=== PATIENT | male | born 1965 | race Caucasian/White ===

== ENCOUNTER 2023-04-13 08:20 | Outpatient (OUT) | payer BC, SELFPAY ==
--- NOTE | 2023-04-13 08:24 | XR_ITS ---
The [address] [address] Patient Name: JANICE YING MRN: [id number] date: 1965 Sex: M Assigned Patient Location: [facility] Current Patient Location: [facility] Accession/Order Number: [id number] Exam Date: 04/13/2023 09:05 Report Date: 04/13/2023 09:40 At the request of: BILLY COPE Procedure: XR chest 2V EXAM: XR chest 2V HISTORY: Preop exam COMPARISON: None. TECHNIQUE: PA and lateral views of the chest. FINDINGS: The cardiomediastinal silhouette is normal. No focal consolidation is identified. There is no pneumothorax. No pleural effusion is noted. The osseous structures are intact. XR/XR chest 2V IMPRESSION: No acute cardiopulmonary process. Electronically authenticated by: YRN UNDERWOOD Date: 04/13/2023 09:40
--- NOTE | 2023-04-13 08:24 | ECG_ITS ---
The [facility] Test Date: 2023-04-13 Pat Name: JANICE YING Department: Room: - Gender: Male [employer]: : 1965 Requested By: BILLY COPE Order Number: [id number] Reading MD: WILMA DEMPSEY Measurements Intervals [place] Rate: 69 P: 54 AL: 188 QRS: -54 QRSD: 145 T: -4 QT: 406 QTc: 436 Interpretive Statements SINUS RHYTHM INTRAVENTRICULAR CONDUCTION DELAY [130+ ms QRS DURATION] No previous ECG available for comparison Electronically Signed On 04-14-2023 7:01:57 EST by WILMA DEMPSEY
[2023-04-13 09:14] LABS: Basophils Percent Auto 0.4 % (0.2-2.0); Hematocrit 40.5 % (42.0-54.0); Hemoglobin 13.7 g/dL (14.0-18.0); Immature Granulocytes Abs Auto 0.03 10^3/uL (0.00-0.03); Immature Granulocytes Pct Auto 0.4 % (0.0-0.5); Lymphocytes Absolute Auto 1.4 10^3/uL (1.2-3.8); Lymphocytes Percent Auto 17.2 % (20.5-60.0); Mean Corpuscular HGB Conc 33.8 g/dL (29.9-35.2); Mean Corpuscular Volume 82.7 fL (80.0-94.0); Mean Platelet Volume 9.8 fL (9.5-13.5); Monocytes Absolute Auto 0.5 10^3/uL (0.3-0.8); Monocytes Percent Auto 5.7 % (1.7-12.0); Neutrophils Absolute Auto 6.4 10^3/uL (1.4-6.5); Neutrophils Percent Auto 76.3 % (43.0-75.0); Platelet Count 301 10^3/uL (150-450); Red Cell Distribution Width 11.9 % (11.0-15.0); White Blood Count 8.4 10^3/uL (4.0-11.0)
[2023-04-13 09:19] LABS: Anion Gap 13.4; BUN Creatinine Ratio 20.4; Calcium 9.7 mg/dL (8.5-10.1); Carbon Dioxide 30.5 mmol/L (21.0-32.0); Chloride 97 mmol/L (98-107); Estimated GFR (African America >60 (>=60); Estimated GFR (Non-African Ame >60 (>=60); Glucose 306 mg/dL (74-106); Potassium 4.9 mmol/L (3.5-5.1); Sodium 136 mmol/L (136-145)
[2023-04-13 09:24] LABS: INR 0.99; Partial Thromboplastin Time 24.8 sec (22.3-36.2); Prothrombin Time 10.5 sec (9.0-11.6)
== END 2023-04-13 08:21 | disposition home or self-care (01) ==
LOC: PST 08:21
PROVIDERS: PCP Urology; Visit Provider Urology
DX: Z01.810 Encounter for preprocedural cardiovascular examination (principal); Z01.812 Encounter for preprocedural laboratory examination; N20.0 Calculus of kidney; F41.9 Anxiety disorder, unspecified; E78.5 Hyperlipidemia, unspecified
CPT/HCPCS: 36415; 71046; 80048; 85025; 85610; 85730; 93005

== ENCOUNTER 2023-04-27 08:17 | Day surgery (SDC) | payer BC, SELFPAY ==
[2023-04-13 08:54] VITALS: BP 158/90; PULSE 70; RESP 18; TEMP 36.3; O2SAT 99; BMI 26.3
[2023-04-27] VITALS (14 sets, daily range): BP systolic 130–182; BP diastolic 70–104; PULSE 62–85; RESP 12–18; TEMP 36.1–36.3; O2SAT 96–99; BMI 26.3
--- NOTE | 2023-04-27 08:29 | XR_ITS ---
The [address] [address] Patient Name: JANICE YING MRN: [id number] date: 1965 Sex: M Assigned Patient Location: [facility] Current Patient Location: [facility] Accession/Order Number: [id number] Exam Date: 04/27/2023 08:25 Report Date: 04/27/2023 09:58 At the request of: BILLY COPE Procedure: XR abdomen 1V EXAM: XR abdomen 1V HISTORY: KIDNEY STONES COMPARISON: None. TECHNIQUE: AP view of the abdomen. FINDINGS: Nonobstructive bowel gas pattern is noted. There is a 4 mm calculus in the left and in the right kidney. The osseous structures are intact. XR/XR abdomen 1V IMPRESSION: Nonobstructive bowel gas pattern. Bilateral nephrolithiasis. Electronically authenticated by: YRN UNDERWOOD Date: 04/27/2023 09:58
[2023-04-27 08:56] LABS: Glucometer 205 mg/dL (74-106)
[2023-04-27] MEDS: LACTATED RINGER'S SOLUTION 1,000 ML 50 ML IV ×3 (08:57→12:36)
[2023-04-27] MEDS: CEFAZOLIN SODIUM/DEXTROSE,ISO 1 GM/50 ML IV.SOLN IV (10:03)
--- NOTE | 2023-04-27 11:15 | P.URON_ITS ---
Urology Surgery Operative Note Operative Note Procedure Date: 04/27/23 Time Out Performed: yes Pre-op Diagnosis: bilateral nephrolithiasis Post-op Diagnosis: same as pre-op Procedures performed: . #1. Right ESWL. Anesthesia: General-LMA Primary Surgeon: Sean Cutler Complications: none Estimated blood loss (mL): 0 Findings: 2, 5-6 mm stones right upper pole Specimens: . None Indications for Procedures: this gentleman has bilateral nephrolithiasis. On the right side. He has 2 stones in the lower pole, each of which is 5-6 mm. These are nonobstructing. On the left side. He has a stone that is 4-5 mm. He now presents for right ESWL. He has signed an informed consent for this procedure after all risks were explained. [place] of these include bleeding, perinephric hematoma, infection and anesthesia to name a few. Detailed description of Procedure: The patient was brought to the Operating Room and placed on Siemens electromagnetic lithotripsy treatment table in the supine position. SCDs were placed on their lower extremities and turned on and functioning during the entire case. Timeout was done by all parties in the room. We all agreed upon the patient's identification and the planned procedures for this patient. General Anesthesia was then administered via LMA. Treatment head was then brought to the patient's correct side. While using flourscopy the higher of the 2 stones was identified and lined up into the crosshairs. we beegan applying shocks at power level II.0 and increased to a maximum power level III.5. Intermittent fluoroscopy revealed that not only was the stone in the crosshairs starting to fragment but also the stone adjacent to it was. We applied a total of 3000 shocks. Both stones appeared to fragment satisfactorily. The procedure was terminated. He was then transferred to a [facility] bed and wheeled to PACU in stable condition.
--- NOTE | 2023-04-27 11:47 | PC.NURSE ---
C/O TAILBONE,SCIATIC PAIN THAT HE HAS BEEN DEALING WITH AT HOME; TRYING TO REPOSITION
--- NOTE | 2023-04-27 12:02 | PC.NURSE ---
Assited to chair and hot pack applied to sacral area
[2023-04-27] MEDS: KETOROLAC TROMETHAMINE 30 MG/ML VIAL IVP (12:34)
[2023-04-27] MEDS: MORPHINE SULFATE 4 MG/ML VIAL IV (12:54)
--- NOTE | 2023-04-27 12:59 | PC.NURSE ---
Patient medicated per Dr. Cutler orders with morphine at this time. Patient alert and oriented x4. Pain in right flank area. No relief from toradol noted at this time.
[2023-04-27] MEDS: MEPERIDINE HCL/PF 25 MG/ML VIAL 75 MG IM (13:45)
== END 2023-04-27 15:22 | disposition home or self-care (01) ==
PROVIDERS: PCP Urology; Visit Provider Urology
PROC: (CPT 873; principal; 2023-04-27 09:40)
DX: N20.0 Calculus of kidney (principal); F41.9 Anxiety disorder, unspecified; E78.5 Hyperlipidemia, unspecified; I10 Essential (primary) hypertension; E11.9 Type 2 diabetes mellitus without complications; Z79.01 Long term (current) use of anticoagulants; I25.10 Atherosclerotic heart disease of native coronary artery without angina pectoris; I25.2 Old myocardial infarction; L40.50 Arthropathic psoriasis, unspecified; Z79.84 Long term (current) use of oral hypoglycemic drugs; Z87.891 Personal history of nicotine dependence; Z79.82 Long term (current) use of aspirin; Z85.820 Personal history of malignant melanoma of skin; N40.1 Benign prostatic hyperplasia with lower urinary tract symptoms; Z95.5 Presence of coronary angioplasty implant and graft
CPT/HCPCS: 50590; 36415; 74018; 82948

== ENCOUNTER 2023-05-04 08:15 | Outpatient (OUT) | payer BC, SELFPAY ==
[2023-05-04 08:31] LABS: Basophils Percent Auto 0.3 % (0.2-2.0); Eosinophils Absolute Auto 0.1 10^3/uL (0.0-0.7); Eosinophils Percent Auto 1.6 % (0.9-7.0); Hematocrit 31.2 % (42.0-54.0); Hemoglobin 10.2 g/dL (14.0-18.0); Immature Granulocytes Abs Auto 0.01 10^3/uL (0.00-0.03); Immature Granulocytes Pct Auto 0.1 % (0.0-0.5); Lymphocytes Percent Auto 22.1 % (20.5-60.0); Mean Corpuscular HGB Conc 32.7 g/dL (29.9-35.2); Mean Corpuscular Hemoglobin 27.8 pg (25.9-34.0); Mean Platelet Volume 9.4 fL (9.5-13.5); Monocytes Absolute Auto 0.9 10^3/uL (0.3-0.8); Monocytes Percent Auto 10.2 % (1.7-12.0); Neutrophils Absolute Auto 5.8 10^3/uL (1.4-6.5); Neutrophils Percent Auto 65.7 % (43.0-75.0); Platelet Count 365 10^3/uL (150-450); Red Blood Count 3.67 10^6/uL (4.70-6.10); Red Cell Distribution Width 12.7 % (11.0-15.0); White Blood Count 8.8 10^3/uL (4.0-11.0)
== END 2023-05-04 08:16 | disposition home or self-care (01) ==
LOC: LAB 08:15
PROVIDERS: PCP Urology; Visit Provider Urology
DX: S37.019A Minor contusion of unspecified kidney, initial encounter (principal)
CPT/HCPCS: 36415; 85025

== ENCOUNTER 2023-05-17 10:14 | Outpatient (OUT) | payer BC, SELFPAY ==
[2023-05-12 09:59] LABS: Basophils Percent Auto 0.4 % (0.2-2.0); Eosinophils Absolute Auto 0.1 10^3/uL (0.0-0.7); Eosinophils Percent Auto 0.9 % (0.9-7.0); Hematocrit 31.4 % (42.0-54.0); Hemoglobin 10.2 g/dL (14.0-18.0); Immature Granulocytes Abs Auto 0.03 10^3/uL (0.00-0.03); Immature Granulocytes Pct Auto 0.4 % (0.0-0.5); Lymphocytes Absolute Auto 2.1 10^3/uL (1.2-3.8); Lymphocytes Percent Auto 29.4 % (20.5-60.0); Mean Corpuscular HGB Conc 32.5 g/dL (29.9-35.2); Mean Corpuscular Hemoglobin 27.6 pg (25.9-34.0); Mean Corpuscular Volume 85.1 fL (80.0-94.0); Mean Platelet Volume 8.7 fL (9.5-13.5); Monocytes Absolute Auto 0.7 10^3/uL (0.3-0.8); Monocytes Percent Auto 9.8 % (1.7-12.0); Neutrophils Absolute Auto 4.1 10^3/uL (1.4-6.5); Neutrophils Percent Auto 59.1 % (43.0-75.0); Platelet Count 523 10^3/uL (150-450); Red Blood Count 3.69 10^6/uL (4.70-6.10); Red Cell Distribution Width 12.1 % (11.0-15.0)
--- OUTSIDE RECORDS SUMMARY | 2023-05-17 10:24 | XMS_ITS | CCD ---
Author Name Unknown Address [address] [place] [address] Organization [facility] Care Team Providers Care Order Analyst Name Role Phone BEDOCS, DR RANJEET Kuhn Attending Unavailable BEDOCS, DR RANJEET Kuhn Consulting Unavailable BEDOCS, DR RANJEET Kuhn Admitting Unavailable MISC, DR OLIVER Primary Care Unavailable ANTONIO KITCHEN Primary Care Physician Unavail able POCOS, YANN Grant Referring Unavailable DEION HAMLIN Attending Unavailable POCOS, YANN Grant Attending Unavailable POCOS, YANN Grant Referring Unavailable DEION HAMLIN Attending Unavailable MATHEUS MCKINNON Attending Unavailable POCOS, YANN Grant Referring Unavailable MATHEUS MCKINNON Attending Unavailable POCOS, YANN Grant Referring Unavailable Pocos, Yann Grant Admitting Unavailable Pocos, Yann Grant Attending Unavailable Edward Castillo Attending Unavailable Danica Antonio Admitting Unavailable COPESean Consulting Unavailable MD Sean COPE Consulting Unavailable COPE, Sean R Consulting Unavailable COPE, Sean R Consulting Unavailable COPE, Sean R Consulting Unavailable COPE, Sean R Consulting Unavailable COPE, Sean R Consulting Unavailable COPE, Sean R Consulting Unavailable COPE, Sean R Consulting Unavailable COPE, Sean R Consulting Unavailable COPE, Sean R Consulting Unavailable COPE, Sean R Consulting Unavailable COPE, Sean R Consulting Unavailable COPE, Sean R Consulting Unavailable Pocos, Yann Grant Referring Unavailable Pocos, Yann Grant Attending Unavailable Pocmaribell, Yann Grant Admitting Unavailable Matthew Dela Cruz Attending Unavaila ble Matthew Dela Cruz Admitting Unavaila ble NONE, XXXX Referring Unavailable Estephania VILLANUEVA Attending Unavailable Estephania VILLANUEVA Admitting Unavailable NONE, XXXX Referring Unavailable Sean COPE Attending Unavailable PRISCA, Sean Stovall Attending Unavailable COPE, Sean Stovall Attending Unavailable ANTONIO KITCHEN Referring Unavailable Sean COPE Attending Unavailable Pocos, Yann Grant Referring Yann Aldana Attending Yann Aldana Admitting Matthew Johnson Referring Matthew Melo Attending Matthew Melo Consulting Matthew Melo Admitting Matthew Melo Consulting Matthew Melo Consulting Denise forde Allergies Allergy Classification Reported Allergen(s) Allergy Type Date of Onset Reaction(s) Facility (2 sources) HYDROcodone; Translations: [HYDROcodone] Drug Allergy [facility] Repository (7 sources) HYDROcodone; Translations: [hydrocodone] Drug Allergy Itching [facility] Medications Current Medications Medication Drug Class(es) Dates Sig (Normalized) Sig (Original) acetaminophen 325 mg / HYDROcodone bitartrate 5 mg oral tablet (1 source) Opioid Agonist Start: 02-09-2023 [place] 325 mg-5 mg oral tablet See Instructions, for pain, 40 tab(s), Refill(s) 0, 1 - 2 po q4-6h prn pain Dx: M17.11, Z96.651 Duration: 7 days, [id number], 188, cm, 01/16/23 7:42:00 EDT, Height/Length Dosing, 97, kg, 01/16/23 7:42:00 EDT, Weight Dosing Start Date: 02/09/23 Status: Ordered acetaminophen 325 mg / oxyCODONE hydrochloride 7.5 mg oral tablet (2 sources) Opioid Agonist Start: 04-30-2023 Percocet 7.5/325 oral tablet 2 tab(s), Oral, q6hr for pain, 20 tab(s), Refill(s) 0, [facility]/pharmacy #[id number], 185, cm, 04/28/23 20:47:00 EST, Height/Length Dosing, 77.2, kg, 04/29/23 10:14:00 EST, Weight Dosing Start Date: 04/30/23 Status: Ordered amLODIPine 5 mg oral tablet (2 sources) Dihydropyridine Calcium Channel Castro Start: 05-01-2023 take 1 tablet by mouth twice daily amLODIPine 5 mg Tab 5 mg = 1 tab(s), Oral, BID, # 60 tab(s), Refills(s) 0, Pharmacy: [facility]/pharmacy #[id number], 185, cm, 04/28/23 20:47:00 EST, Height/Length Dosing, 77.2, kg, 04/29/23 10:14:00 EST, Weight Dosing Start Date: 05/01/23 Status: Ordered ascorbic acid 1000 mg oral tablet (3 sources) Vitamin C Start: 10-13-2020 take 1000 mg by mouth once daily Vitamin C 1,000 mg, Oral, Daily, Refills(s) 0 Start Date: 10/13/20 Status: Ordered aspirin 81 mg delayed release oral tablet (6 sources) Platelet Aggregation Inhibitor, Nonsteroidal Anti-inflammatory Drug Start: 12-16-2022 take 1 tablet by mouth once daily aspirin 81 mg Oral EC Tab 81 mg = 1 tab(s), Oral, Daily, # 90 tab(s), Refills(s) 3, Pharmacy: [facility], 186, cm, 11/24/21 14:21:00 EDT, Height/Length Dosing, 98, kg, 11/24/21 14:21:00 EDT, Weight Dosing Start Date: 12/16/22 Status: Ordered Start: 01-26-2021 take 1 tablet by allen th once daily Aspirin 81 mg Tab-Chew 81 mg = 1 tab(s), Oral, Daily, # 90 tab(s), Refills(s) 3, Pharmacy: [facility]/pharmacy #[id number], 186, cm, 10/20/20 11:38:00 EDT, Height/Length Dosing, 96, kg, 10/20/20 11:38:00 EDT, Weight Dosing Start Date: 01/26/21 Status: Ordered atorvastatin 80 mg oral tablet (9 sources) HMG-CoA Reductase Inhibitor Start: 09-07-2021 take 1 tablet by mouth once daily atorvastatin 80 mg Tab 80 mg = 1 tab(s), Oral, Daily, # 90 tab(s), Refills(s) 3, Pharmacy: [facility], 186, cm, 10/20/20 11:38:00 EDT, Height/Length Dosing, 96, kg, 10/20/20 11:38:00 EDT, Weight Dosing Start Date: 09/07/21 Status: Ordered Fish Oils (9 sources) Start: 12-26-2019 take 500 mg by mouth once daily Fish Oil 500 mg, Oral, Daily, Refill(s) 0, Prophylaxis Start Date: 12/26/19 Status: Ordered Start: 12-26-2019 Fish Oil Oral, Refill(s) 0 Start Date: 12/26/19 Status: Ordered 1 ml ixekizumab 80 mg/ml auto-injector (3 sources) Interleukin-17A Antagonist Start: 11-24-2021 LORazepam 0.5 mg oral tablet (3 sources) Benzodiazepine Start: 02-24-2020 take 1 tablet by mouth three times daily as needed for anxiety Ativan 0.5 mg Tab 0.5 mg = 1 tab(s), Oral, TID, PRN Anxiety, # 15 tab(s), Refills(s) 0, Pharmacy: [facility]/pharmacy #[id number], 185.4, cm, 02/21/20 20:48:00 EDT, Height/Length Dosing, 93.7, kg, 02/21/20 20:48:00 EDT, Weight Dosing Start Date: 02/24/20 Status: Ordered losartan potassium 100 mg oral tablet (7 sources) Angiotensin 2 Receptor Castro Start: 03-22-2023 take 1 tablet by mouth once daily losartan 100 mg Tab 100 mg = 1 tab(s), Oral, Daily, # 90 tab(s), Refills(s) 2, Pharmacy: [facility]/pharmacy #[id number], 188, cm, 01/16/23 7:42:00 EDT, Height/Length Dosing, 97, kg, 01/16/23 7:42:00 EDT, Weight Dosing Start Date: 03/22/23 Status: Ordered Start: 01-16-2023 take 1 tablet by mouth once da joan losartan 100 mg Tab 100 mg = 1 tab(s), Oral, Daily, High blood pressure Start Date: 01/16/23 Status: Ordered Start: 09-29-2021 take 1 tablet by mouth once da joan losartan 100 mg Tab 100 mg = 1 tab(s), Oral, Daily, # 90 tab(s), Refills(s) 0, Pharmacy: [facility], 186, cm, 10/20/20 11:38:00 EDT, Height/Length Dosing, 96, kg, 10/20/20 11:38:00 EDT, Weight Dosing Start Date: 09/29/21 Status: Ordered lysine 500 mg oral tablet (3 sources) Start: 02-21-2020 take 1 tablet by mouth once daily lysine 500 mg oral tablet 500 mg = 1 tab(s), Oral, Daily, Refills(s) 0 Start Date: 02/21/20 Status: Ordered meloxicam 15 mg oral tablet (3 sources) Nonsteroidal Anti-inflammatory Drug Start: 01-16-2023 take 1 tablet by mouth once daily meloxicam 15 mg Tab 15 mg = 1 tab(s), Oral, Daily, Inflammation Start Date: 01/16/23 Status: Ordered metFORMIN hydrochloride 500 mg oral tablet (12 sources) Biguanide Start: 03-27-2023 metformin 500 mg Tab Refills(s) 0 Start Date: 03/27/23 Status: Ordered Start: 12-26-2019 take 1 tablet by allen th twice daily metformin 500 mg Tab 500 mg = 1 tab(s), Oral, BID, Refills(s) 0, Blood glucose Start Date: 12/26/19 Status: Ordered Multivitamins and Minerals (9 sources) Start: 12-26-2019 take 1 tablet by mouth once daily Multivitamins and Minerals 1 tab, Oral, Daily, Refill(s) 0, Prophylaxis Start Date: 12/26/19 Status: Ordered Start: 12-26-2019 Multivitamins and Minerals Refill(s) 0 Start Date: 12/26/19 Status: Ordered nitroglycerin 0.4 mg sublingual tablet (7 sources) Nitrate Vasodilator Start: 02-24-2020 nitroglyce rin 0.4 mg sublingual Tab 0.4 mg = 1 tab(s), SubLingual, q5min, PRN Chest pain, not to exceed 3 doses/15 min--if pain persists, seek medical attention, # 30 tab(s), Refills(s) 0, Pharmacy: [facility]/pharmacy #[id number], 185.4, cm, 02/21/20 20:48:00 EDT, Height/Length Dosing, 93.7, kg, 02/21/20 20:48:00 EDT, Weight Dosing Start Date: 02/24/20 Status: Ordered Non-Formulary Medication (6 sources) Start: 10-13-2020 Non-Formulary Medication Start Date: 10/13/20 Status: Ordered Start: 10-13-2020 Non-Formulary Medication Start Date: 10/13/20 Status: Ordered pantoprazole 40 mg delayed release oral tablet (3 sources) Proton Pump Inhibitor Start: 03-10-2020 take 1 tablet by mouth once daily Protonix 40 mg Tab-DR 40 mg = 1 tab(s), Oral, Daily, # 30 tab(s), Refills(s) 0, Pharmacy: [facility]/pharmacy #[id number], 186, cm, 03/10/20 10:58:00 EDT, Height/Length Dosing, 93, kg, 03/10/20 10:58:00 EDT, Weight Dosing Start Date: 03/10/20 Status: Ordered PARoxetine hydrochloride 10 mg oral tablet (9 sources) Serotonin Reuptake Inhibitor Start: 10-13-2020 take 1 tablet by mouth once daily paroxetine 10 mg Tab 10 mg = 1 tab(s), Oral, Daily, Refills(s) 0, Depression Start Date: 10/13/20 Status: Ordered Taltz Autoinjector (9 sources) Start: 09-10-2020 Taltz Autoinje ctor 80 mg, SubCutaneous, q4wk, Refills(s) 0, Other (see comment) Start Date: 09/10/20 Status: Ordered Start: 09-10-2020 Taltz Autoinje ctor Refills(s) 0 Start Date: 09/10/20 Status: Ordered Vitamin B6 100 mg Tab (6 sources) Start: 01-16-2023 take 1 tablet by mouth once daily Vitamin B6 100 mg Tab 100 mg = 1 tab(s), Oral, Daily, Prophylaxis Start Date: 01/16/23 Status: Ordered Vitamin D (3 sources) Start: 10-13-2020 Vitamin D 50,0 00 International_Unit, Oral, Daily, Refills(s) 0 Start Date: 10/13/20 Status: Ordered Completed/Discontinued Medications Medication Drug Class(es) Dates Sig (Normalized) Sig (Original) latanoprost 0.05 mg/ml ophthalmic solution (6 sources) Prostaglandin Analog Start: 01-16-2023 latanoprost Opth 0.005% Rosalina 1 drop(s), OPTH, Once a day (at bedtime), Ocular congestion Start Date: 01/16/23 Status: Ordered semaglutide 7 mg oral tablet (9 sources) Start: 11-24-2021 take 1 tablet by mouth once daily Rybelsus 7 mg oral tablet 90 EA, TAKE 1 TAB AT LEAST 30MIN. BEFORE FIRST FOOD, DRINK, OR OTHER ORAL MEDS OF THE DAY, Refills(s) 0, Blood glucose Start Date: 11/24/21 Status: Ordered Problems Active Problems Problem Classification Problem Date Documented Da te Episodic/Chronic Acute and unspecified renal failure (1 source) Acute renal failure syndrome; Translations: [Acute kidney failure, unspecified] Onset: 04-29-2023 Episodic Acute myocardial infarction (12 sources) Acute ST segment elevation myocardial infarction; Translations: [Myocardial infarction] Onset: 12-26-2019 12-26-2019 Chronic Acute posthemorrhagic anemia (1 source) Acute posthemorrhagic anemia; Translations: [Acute posthemorrhagic anemia] Onset: 04-28-2023 Episodic Allergic reactions (1 source) Chronic radiodermatitis; Translations: [CHRONIC RADIODERMATITIS] Onset: 05-20-2021 Episodic Anxiety disorders (4 sources) Anxiety; Translations: [Anxiety disorder] Onset: 04-28-2023 03-20-2023 Chronic Calculus of urinary tract (6 sources) Kidney stone; Translations: [Calculus of kidney] Onset: 03-27-2023 Episodic Complications of surgical procedures or medical care (1 source) Postprocedural hematoma of a genitourinary system organ or structure following a genitourinary system procedure; Translations: [N99.840] Onset: 04-29-2023 Episodic Coronary atherosclerosis and other heart disease (11 sources) Coronary arteriosclerosis; Translations: [Coronary atherosclerosis] Onset: 01-31-2023 03-10-2020 Chronic Crushing injury or internal injury (2 sources) Contusion of kidney; Translations: [Minor contusion of unspecified kidney, initial encounter] Onset: 04-28-2023 Episodic Diabetes mellitus without complication (10 sources) Type 2 diabetes mellitus; Translations: [Type 2 diabetes mellitus without complication] Onset: 04-28-2023 12-26-2019 Chronic Essential hypertension (10 sources) Hypertensive disorder; Translations: [Essential hypertension] Onset: 04-28-2023 01-16-2023 Chronic Glaucoma (6 sources) Glaucoma 01-16-2023 Chronic Hyperplasia of prostate (5 sources) Benign prostatic hypertrophy without outflow obstruction; Translations: [Benign prostatic hyperplasia without lower urinary tract symptoms] Onset: 03-27-2023 Chronic Mood disorders (6 sources) Depressive disorder 01-16-2023 Chronic Nonspecific chest pain (7 sources) Chest pain; Translations: [Chest pain, unspecified] Onset: 04-28-2023 01-16-2023 Episodic Osteoarthritis (12 sources) Arthritis; Translations: [Osteoarthritis] 01-16-2023 Chronic Other aftercare (1 source) Encounter for follow-up examination after completed treatment for malignant neoplasm; Translations: [ENC F/U EX AFTR CMPL TX MALIG NEOPL] Onset: 05-20-2021 Episodic Other aftercare (2 sources) Long-term current use of aspirin; Translations: [terminal carman (current) use of aspirin] Onset: 03-27-2023 Episodic Other aftercare (3 sources) Long-term current use of anticoagulant 03-20-2023 Episodic Other connective tissue disease (1 source) Other bursal cyst, left hand; Translations: [OTHER BURSAL CYST LEFT HAND] Onset: 05-20-2021 Episodic Other gastrointestinal disorders (1 source) Retroperitoneal hematoma; Translations: [Retroperitoneal hematoma] Onset: 04-28-2023 Episodic Other gastrointestinal disorders (1 source) Constipation, unspecified; Translations: [Constipation, unspecified] Onset: 04-29-2023 Episodic Other inflammatory condition of skin (4 sources) Psoriasis vulgaris; Translations: [PSORIASIS VULGARIS] Onset: 05-15-2021 Chronic Other inflammatory condition of skin (3 sources) Plaque psoriasis 03-20-2023 Chronic Other inflammatory condition of skin (3 sources) Psoriatic arthritis 03-20-2023 Chronic Other skin disorders (1 source) Other seborrheic keratosis; Translations: [OTHER SEBORRHEIC KERATOSIS] Onset: 05-20-2021 Episodic Skin and subcutaneous tissue infections (2 sources) Furuncle of left lower limb; Translations: [Furuncle of right lower limb] Onset: 05-20-2021 Episodic Unclassified (3 sources) Long-term current use of aspirin 03-27-2023 Past or Other Problems Problem Classification Problem Date Documented Da te Episodic/Chronic Diabetes mellitus without complication (9 sources) Diabetes mellitus without complication 12-26-2019 Melanomas of skin (4 sources) Personal history of malignant melanoma of skin; Translations: [History of malignant melanoma of the skin] Onset: 05-20-2021 03-20-2023 Episodic Results Test Name Value Interpretation Reference Range Facil ity Lab Reportson 05-15-2023 Lab Reports [id number] IFF [facility] Formson 05-10-2023 Forms [id number] FF [facility] Insurance Correspondence Off iceon 05-10-2023 Insurance Correspondence Office [id number] [facility] Ambulatory Visit Summaryon 1 07-09-2022 Ambulatory Visit Summary JANICE SMYTH :1965 Visit Date:05/08/2023 Ambulatory Visit Instructions Your Diagnosis Kidney stones BPH (benign prostatic hyperplasia) Aspirin long-term use Hematoma of right kidney Tests Performed Urnls Dip Stick Auto w/o Microscopy POC [id number] Your Care Team Attending Physician - PRISCA ACOSTA, Sean Stovall Primary Care Physician - ANTONIO KITCHEN DO This Is Your Medications List Contact prescribing physician if questions or concerns acetaminophen-oxycodone (Percocet 7.5/325 oral tablet) amlodipine (amLODIPine 5 mg Tab) atorvastatin (atorvastatin 80 mg Tab) ixekizumab (Taltz Autoinjector) latanoprost ophthalmic (latanoprost Opth 0.005% Rosalina) losartan (losartan 100 mg Tab) metformin (metformin 500 mg Tab) multivitamin with minerals (Multivitamins and Minerals) omega-3 polyunsaturated fatty acids (Fish Oil) paroxetine (paroxetine 10 mg Tab) pyridoxine (Vitamin B6 100 mg Tab) semaglutide (Rybelsus 7 mg oral tablet) Procedures Performed ESWL of kidney (04/27/2023), Total knee arthroplasty (02/07/2023), Cardiac catheterisation (02/24/2020), Coronary artery stent (12/26/2019), PCI - Percutaneous coronary intervention (12/26/2019), Excision of malignant skin tumor (01/03/2019), Cystoscopy (07/26/2018), Radiofrequency ablation (09/22/2017), Laser ablation of prostate (07/12/2017), Cystourethroscopy with dilation of urethral stricture (06/08/2017), Shoulder joint instability (2005), Fracture of hand (2003), Tonsillectomy (2001), ACL - Anterior cruciate ligament deficiency (1978), Femur (1973). Discharge Vitals Heart Rate (Peripheral) 94 Respiratory Rate 16 Blood Pressure 139/83 Height 185 cm Height 73 in Weight 86.9 kg Weight 191.18 lb BMI 25.39 What to do next Scheduled Follow-Up Appointments Monday 9:15 AM EST With: PRISCA ACOSTA, Sean Stovall Where: [facility] Normal [facility] Patient Educationon 05-08-20 Patient Education Urology Kidney Stones Kidney stones are rock-like masses that form inside of the kidneys. Kidneys are organs that make pee (urine). A kidney stone may move into other parts of the urinary tract, including: ? The tubes that connect the kidneys to the bladder (ureters). ? The bladder. ? The tube that carries urine out of the body (urethra). Kidney stones can cause very bad pain and can block the flow of pee. The stone usually leaves your body (passes) through your pee. You may need to have a doctor take out the stone. What are the causes? Kidney stones may be caused by: ? A condition in which certain glands make too much parathyroid hormone (primary hyperparathyroidism). ? A buildup of a type of crystals in the bladder made of a chemical called uric acid. The body makes uric acid when you eat certain foods. ? Narrowing (stricture) of one or both of the ureters. ? A kidney blockage that you were born with. ? Past surgery on the kidney or the ureters, such as gastric bypass surgery. What increases the risk? You are more likely to develop this condition if: ? You have had a kidney stone in the past. ? You have a family history of kidney stones. ? You do not drink enough water. ? You eat a diet that is high in protein, salt (sodium), or sugar. ? You are overweight or very overweight (obese). What are the signs or symptoms? Symptoms of a kidney stone may include: ? Pain in the side of the belly, right below the ribs (flank pain). Pain usually spreads (radiates) to the groin. ? Needing to pee often or right away (urgently). ? Pain when going pee (urinating). ? Blood in your pee (hematuria). ? Feeling like you may vomit (nauseous). ? Vomiting. ? Fever and chills. How is this treated? Treatment depends on the size, location, and makeup of the kidney stones. The stones will often pass out of the body through peeing. You may need to: ? Drink more fluid to help pass the stone. In some cases, you may be given fluids through an IV tube put into one of your veins at the hospital. ? Take medicine for pain. ? Make changes in your diet to help keep kidney stones from coming back. Sometimes, medical procedures are needed to remove a kidney stone. This may involve: ? A procedure to break up kidney stones using a beam of light (laser) or shock waves. ? Surgery to remove the kidney stones. Follow these instructions at home: Medicines ? Take [id number] and prescription medicines only as told by your doctor. ? Ask your doctor if the medicine prescribed to you requires you to avoid driving or using heavy machinery. Eating and drinking ? Drink enough fluid to keep your pee pale yellow. You may be told to drink at least 8?10 glasses of water each day. This will help you pass the stone. ? If told by your doctor, change your diet. This may include: ? Limiting how much salt you eat. ? Eating more fruits and vegetables. ? Limiting how much meat, poultry, fish, and eggs you eat. ? Follow instructions from your doctor about eating or drinking restrictions. General instructions ? Collect pee samples as told by your doctor. You may need to collect a pee sample: ? 24 hours after a stone comes out. ? 8?12 weeks after a stone comes out, and every 6?12 months after that. ? Strain your pee every time you pee (urinate), for as long as told. Use the strainer that your doctor recommends. ? Do not throw out the stone. Keep it so that it can be tested by your doctor. ? Keep all follow-up visits as told by your doctor. This is important. You may need follow-up tests. How is this prevented? To prevent another kidney stone: ? Drink enough fluid to keep your pee pale yellow. This is the best way to prevent kidney stones. ? Eat healthy foods. ? Avoid certain foods as told by your doctor. You may be told to eat less protein. ? Stay at a healthy weight. Where to find more information ? National Kidney Foundation (NKF): www.kidney.org ? [employer] (UCF): www.urologyhealth.org Contact a doctor if: ? You have pain that gets worse or does not get better with medicine. Get help right away if: ? You have a fever or chills. ? You get very bad pain. ? You get new pain in your belly (abdomen). ? You pass out (faint). ? You cannot pee. Summary ? Kidney stones are rock-like masses that form inside of the kidneys. ? Kidney stones can cause very bad pain and can block the flow of pee. ? The stones will often pass out of the body through peeing. ? Drink enough fluid to keep your pee pale yellow. This information is not intended to replace advice given to you by your health care provider. Make sure you discuss any questions you have with your health care provider. Document Revised: 01/17/2022 Document Reviewed: 01/17/2022 [employer] Patient Education ? 2022 [employer] [facility] Progress Note-Physicianon Progress Note-Physician Assessment/Plan PLAN: 1. Chest pain (R07.9: Chest pain, unspecified) Likely due to effects of below hematoma in conjunction with hypoperfusion from anemia with hx CAD ACS ruled out with neg Troponin levels x 4 and normal 12 lead ECG 2. Perinephric hematoma (S37.019A: Minor contusion of unspecified kidney, initial encounter) Complication for recent lithotripsy. Supportive care. Treat pain. NPO for now. Urology consultation Dr. Cope.appreciated CT abd/pelvis 04/28 showed hyperdense collection 3.2 cm in thickness surrounding the right kidney suspicious for subcapsular hematoma. Also, extension into the right kidney retroperitoneum and right paracolic gutter. No active extravasation w/in limits of portal venous phase. There is also bilateral renal calculi larges on right 5mm. no hydronephrosis. Repeat CT Scan abd 04/30 shows circumferential hyperdense collection surrounding the right kidney measuring 3.3cm in thickness--subcapsular hematoma unchanged from prior. Extension into right retroperitoneum inferiorly and small amt in paracolic gutter. 3. Retroperitoneal hematoma (K68.3: Retroperitoneal hematoma) See above #2 4. LUIS MIGUEL (acute kidney injury) (N17.9: Acute kidney failure, unspecified) Due to hemodynamic effects of acute bleed in conjunction with possible obstructive effect from hematoma now resolved. IVF 5. Acute blood loss anemia (D62: Acute posthemorrhagic anemia) Due to above Acute Hematoma. Hb 8.9. On 03/08 was 12.9 Drop in Hgb to 7.3 on 04/29 and was given 2 units of PRBCs Hgb today 9.4 follow blood transfusion. Follow H/H Q6hrs. 6. Constipation (K59.00: Constipation, unspecified) resolved. 7. Coronary artery disease (I25.10: Atherosclerotic heart disease of [place] coronary artery without angina pectoris) s/p stent in 2019 CT Chest showed extensive calcifications of the LAD Follows with [facility] 8. HTN (hypertension) (I10: Essential (primary) hypertension) Holding Losartan due to LUIS MIGUEL. Amlodipine started today improved. 9. Kidney stones (N20.0: Calculus of kidney) s/p lithotripsy by Dr Cope on 04/27 at [facility] 10. Type 2 diabetes mellitus (E11.9: Type 2 diabetes mellitus without complications) Controlled. Last A1C 7.0 in 2019. 11. Anxiety (F41.9: Anxiety disorder, unspecified) Paxil Subjective Pt seen at bedside this morning. Still c/o large amt of abdominal pain. Back pain radiating across entire lower back. Denies fevers, chills, CP , SOB. Improved after 2 units of blood last night. Pending CT results today. Objective Vitals & Measurements T: 36.8 ?C(Axillary) TMIN: 36.2 ?C(Axillary) TMAX: 36.9 ?C(Axillary) HR: 71(Monitored) RR: 19 BP: 173/90 SpO2: 96% WT: 77.3 kg Intake & Output This visit (24 hour periods starting at 07:00 EST) 04/30/23 * 04/29/23 04/28/23 Total Summary Intake mL 1 647.63 5 Output mL -- 1,390 500 Fluid Balance 1 -742.37 -495 Intake (5) Blood Unit #2 Volume Infused mL -- 330 -- Sodium Chloride 0.9% intravenous solution 1,000 mL mL -- 309.63 -- furosemide mL -- 2 -- morphine mL 1 4 3 ondansetron mL -- 2 2 Total 1 647.63 5 Output (1) Urine Voided mL -- 1,390 500 Total -- 1,390 500 Counts (1) Stool Count -- 1 -- * This column has not completed the indicated time period. Physical Exam General: NAD Skin: warm, dry, no rash Head: AT/NC Neck: Trachea midline, supple Eye: normal conjunctiva, sclera clear Cardiovascular: regular rate and rhythm, S1S2, normal peripheral perfusion Respiratory: Lungs CTA anteriorly, respirations non labored, breath sounds shallow as deep breathing aggravates his pain Chest wall: no deformity. no TTP Gastrointestinal: tender to touch on palpation to entire lower abd. mainly right side. Slightly firm. Neg for cheng alex/govind signs Extremities: no deformity, no edema Neurological: oriented, LOC appropriate for age, no focal deficits, normal speech Psychiatric: cooperative, affect appropriate for age, good eye contact Lab Results WBC: 5 E9/L (04/30/23 05:53:00) RBC: 3.3 E12/L Low (04/30/23 05:53:00) HGB: 9.3 gm/dL Low (04/30/23 05:53:00) HGB: 9.4 gm/dL Low (04/30/23 05:53:00) Hct: 26.5 % Low (04/30/23 05:53:00) Hct: 27.2 % Low (04/30/23 05:53:00) MCV: 82.5 fL (04/30/23 05:53:00) MCH: 28.5 pg (04/30/23 05:53:00) MCHC: 34.5 gm/dL (04/30/23 05:53:00) RDW: 13.7 % (04/30/23 05:53:00) Platelet: 156 E9/L (04/30/23 05:53:00) MPV: 8.1 fL (04/30/23 05:53:00) Neutro Auto: 61.6 % (04/30/23 05:53:00) Lymph Auto: 26.8 % (04/30/23 05:53:00) Dodge Auto: 8.9 % (04/30/23 05:53:00) Eos Auto: 2.3 % (04/30/23 05:53:00) Basophil Auto: 0.4 % (04/30/23 05:53:00) Neutro Absolute: 3.1 E9/L (04/30/23 05:53:00) Lymph Absolute: 1.3 E9/L (04/30/23 05:53:00) Dodge Absolute: 0.4 E9/L (04/30/23 05:53:00) Eos Absolute: 0.1 E9/L (04/30/23 05:53:00) Basophil Absolute: 0 E9/L (04/30/23 05:53:00) Glucose (more content not included)... Normal [facility] Comment on above: Result Comment: Elec tronically Signed By: Huyen DE LOS SANTOS\.br\Date and Time Signed: 04/30/23 10:29 EST\.br\Electronically Co-Signed By: Huyen DE LOS SANTOS\.br\Date and Time Co-Signed: 04/30/23 10:32 EST\.br\Electronically Co-Signed By: Zoraida Orr MD\.br\Date and Time Co-Signed: 05/08/23 10:08 EST Urology Office/Clinic Noteon 05-08-2023 Urology Office/Clinic Note Chief Complai nt Hematoma following ESWL HPI Staff S/P Rt ESWL 04/27/23 DX: Kidney Stone & BPH [facility] 04/28/23 CC: Chest pain & SOB CT ap w/ 04/28/23 *Subcapsular hematoma around Rt Kidney Pt admitted to hospital CT ap w/ 04/30/23 *No changes PRW did hospital consult 04/30/23. Pt DC'd home with Percocet. 05/01/23 Hgb 9.9 & Hct 28.1% 05/04/23 Hgb10.2 & Hct 31.2 States he currently does not feel well. Always feels sick, tired, no appetite, shivers & shakes daily. Random Sweats. Has been constipated all week. Pain in Lower Rt abdomen that radiates through out back has been intermittent. Has increased water intake, urine continues to stay orange. Has been having bad breath yucky mouth taste History of Present Illness Tests Reviewed: Reviewed UA, op report, labs. I have reviewed and verified the staff HPI to be accurate for this encounter. I have reviewed the previous health record information and history for this patient from Dr. Cope Denies any urinary infections since last encounter. Review of Systems PHQ Score Initial Depression Screen Score: 0 SCORE ROS - Provider Constitutional: denies weight loss, denies hot flashes. Eyes: denies eye problems. Gastrointestinal: denies nausea, denies vomiting. Cardiovascular: denies chest pain or angina. Integumentary: no dryness Musculoskeletal: denies musculoskeletal symptoms. ENMT: denies otolaryngeal symptoms. Respiratory: no shortness of breath. Heme/Lymph: denies easy bleeding tendency, denies easy bruising tendency. Psychiatric: no confusion, no anxiety. Genitourinary: denies dysuria, denies hematuria, denies discharge, denies urinary frequency, denies urinary hesitancy, denies nocturia, denies incontinence, denies genital sores, denies decreased libido, and denies erectile dysfunction. Physical Exam Vitals & Measurements HR: 94(Peripheral) RR: 16 BP: 139/83 HT: 73 in HT: 185 cm WT: 86.9 kg WT: 191.18 lb BMI: 25.39 General Appearance: alert, no distress, well nourished, well developed male. Flank Pain: Mild Right side., intermittent Bladder: nonpalpable. Assessment/Plan 1. Kidney stones (N20.0: Calculus of kidney) Lumbar spine XR 01/03/23 NOMS - 2 R renal calcifications measuring up to 6mm. Patient is s/p Right ESWL done 04/27/23. Due to PO hematoma, patient cannot EVER get ESWL done safely again. 2. BPH (benign prostatic hyperplasia) (N40.0: Benign prostatic hyperplasia without lower urinary tract symptoms) S/p Cysto/UD 06/08/17, green light laser of prostate 07/12/17, Cysto 07/26/[address] Culver. Not currently taking any BPH meds. UA negative infection. PSA (checked by PCP): 03/18/17 - 3.15 12/06/19 - 0.927 03/26/22 - 0.58 3. Aspirin long-term use (Z79.82: residential (current) use of aspirin) Aspirin therapy 4. Hematoma of right kidney (S37.011A: Minor contusion of right kidney, initial encounter) S/p RT ESWL done 04/27/23. Developed a small PO hematoma from lithotripsy machine. CBC reviewed done 05/04/23. Hemoglobin 10.2 Hematocrit 31.2 Small blood on UA today. States he currently does not feel well. Always feels sick, tired, no appetite, shivers & shakes daily. Random Sweats. Has been constipated all week. Patient advised to take Catalina fusion 4-6 gummy chews per day to get regular. Pain in Lower Rt abdomen that radiates through out back has been intermittent. Seems to be worsened with laying on the right side or picking up dog poop in the yard. Patient to not do heavy lifting, ok for walking. He will continue Acetaminophen therapy as needed, he was taking 1500mg TID therapy. He is to take 1000mg TID, and add Ibuprofen 200mg at night for pain relief. Has increased water intake, urine continues to stay dark. UA today shows small blood, which can contribute to dark colored urine. He is drinking plenty of fluids. Has been having bad breath yucky mouth taste Patient was advised he will slowly start to feel better. It will take time. Unable to give exact time frame. He must wait for his body to heal. Explained after hematoma heals, pt will have no intermediate manager effects on kidney. Patient does not feel he is able to get back to work. Will extend sick leave until patient feels he is able to return to work. Patient to increase protein consumption to help with healing, ok for red meat consumption, ok for protein drinks. Discussed that the hematoma will reabsorb with time, getting imaging will not change the outcome. Will not do Ct scan due to risk of radiation. Discussed that patient will need to see PCP or hematology to see why patient is Anemic. All questions and concerns were discussed and addressed with patient and . I have reviewed the previous health history and record for this patient with Dr. Cope. Will check CBC level 05/12/23 F/u in 1 month Follow-up With When Contact Information PRISCA ACOSTA, Sean Stovall, URL In 1 month [facility] [address], [place] [address]- [phone] Addition (more content not included)... Normal [facility] Comment on above: Result Comment: Elec tronically Signed By: Sean COPE MD\.br\Date and Time Signed: 05/08/23 12:52 EST\.br\Electronically Co-Signed By: Oliva Luna\.br\Date and Time Co-Signed: 05/08/23 12:48 EST Blood Bank Slipon 05-05-2023 Blood Bank Slip [id number]#1.00TIFF [facility] Blood Bank Slip [id number]#1.00TIFF [facility] Consent for Blood Transfusio non 05-05-2023 Consent for Blood Transfusion [id number]#1.00TIFF [facility] Discharge Instructionson Discharge Instructions [id number]#1.00TIFF [facility] Lab Reportson 05-05-2023 Lab Reports [id number] IFF [facility] RAD - MISCon 05-05-2023 RAD - MISC [id number]#1.00TI FF [facility] General Message Officeon General Message Office --- --- --- --- - -- --- --- --- --- From: Irene DillardIndai To: JANICE SMYTH Sent: 05/02/23 02:30:58 AM EST Subject: Discharge Summary Ready to View A summary regarding your recent visit is available in the Documents section of your health record. [facility] OARRS Reporton 05-02-2023 OARRS Report [id number] TIFF Normal [facility] CHEMISTRYOrdered By: Lab ROP User on 05-01-2023 Glucose [Mass/Vol] 280 mg/dL High 55 - 99 mg/dL [facility] POC Subsection Comment on above: Result Comment: Christine PHILLIPS POC Username JOHANA SPAIN Invalid Interpr etation Code [facility] POC Subsection Sodium [Moles/Vol] 009993599583 mmol/L Invalid Interpretation Code [facility] POC Subsection Sodium [Moles/Vol] 498606764 mmol/L Invalid Interpretation Code FT POC Subsection Glucose [Mass/Vol] 160 mg/dL High 55 - 99 mg/dL [facility] POC Subsection Comment on above: Result Comment: Christine PHILLIPS POC Username JOHANA SPAIN Invalid Interpr etation Code FT POC Subsection Sodium [Moles/Vol] [id number] mmol/L Invalid I nterpretation Code FT POC Subsection Sodium [Moles/Vol] 954862492 mmol/L Invalid Inte rpretation Code [facility] POC Subsection Capillary Glucose POCon Glucose [Mass/Vol] 280 mg/dL High 55-99 [facility] Comment on above: Result Comment: Christine PHILLIPS Performed By: #### 2 [id number] #### [facility] [address] [place] [address] Glucose [Mass/Vol] 160 mg/dL High 55-99 [facility] Comment on above: Result Comment: Christine PHILLIPS Performed By: #### 2 [id number] ####[facility] [address] [place] [address] Discharge Note-Nursingon Discharge Note-Nursing JANICE SMYTH :1965 Visit Date:04/28/2023 Inpatient Discharge Instructions Your Care Team Admitting Physician - Paco ACOSTA, Danica Consulting Physician - Sean COPE MD Reason for Your Visit CP and abdominal pain Your Diagnosis Chest pain Perinephric hematoma Retroperitoneal hematoma LUIS MIGUEL (acute kidney injury) Acute blood loss anemia Constipation Coronary artery disease HTN (hypertension) Kidney stones Type 2 diabetes mellitus Anxiety Chest pain Dizziness Shortness of breath Tests Performed ABO/Rh Antibody Screen Automated Diff BMP Capillary Glucose POC CBC w/ Auto Diff Crossmatch eGFR Hemoglobin and Hematocrit HgbA1c Magnesium Level PT & PTT Troponin 0 Hr. Troponin 3 Hr. Troponin 6 Hr. Troponin 9 Hr. UA With Cult Reflex -- Results Pending -- CT Abdomen/Pelvis w/ Contrast CTA Chest XR Chest Single View Please visit your patient portal for your results or contact your primary care physician. This Is Your Medications List acetaminophen-oxycodone (Percocet 7.5/325 oral tablet) amlodipine (amLODIPine 5 mg Tab) atorvastatin (atorvastatin 80 mg Tab) ixekizumab (Taltz Autoinjector) latanoprost ophthalmic (latanoprost Opth 0.005% Rosalina) losartan (losartan 100 mg Tab) metformin (metformin 500 mg Tab) multivitamin with minerals (Multivitamins and Minerals) omega-3 polyunsaturated fatty acids (Fish Oil) paroxetine (paroxetine 10 mg Tab) pyridoxine (Vitamin B6 100 mg Tab) semaglutide (Rybelsus 7 mg oral tablet) [Image Removed: STOP]Stop taking these medications nitroglycerin (nitroglycerin 0.4 mg sublingual Tab) Procedure History Total knee arthroplasty (02/07/2023), Cardiac catheterisation (02/24/2020), Coronary artery stent (12/26/2019), PCI - Percutaneous coronary intervention (12/26/2019), Excision of malignant skin tumor (01/03/2019), Cystoscopy (07/26/2018), Radiofrequency ablation (09/22/2017), Laser ablation of prostate (07/12/2017), Cystourethroscopy with dilation of urethral stricture (06/08/2017), Shoulder joint instability (2005), Fracture of hand (2003), Tonsillectomy (2001), ACL - Anterior cruciate ligament deficiency (1978), Femur (1973). Discharge Vitals Temperature (Axillary) 36.8 ?C Heart Rate (Monitored) 83 Blood Pressure 146/85 Weight 77.2 kg What to do next Instructions From Your Doctor Event Name Event Result Discharge Restrictions No driving Discharge Diet(s) Fat Modified- Low cholesterol Pending Diagnostic Test Results None Pharmacy Information [facility] , [facility] , Other: [facility] Discharge Instructions take Tylenol first and then Motrin as needed thereafter and he can use the Percocet as a last resort. Check an H&H on and will see you in the office a week from Monday. NO LIFTING OR EXERTION-NO DRIVING OR IN CAR PER UROLOGY. Previously Scheduled Follow-Up Appointments Monday 11:00 AM EST With: PRISCA ACOSTA, Sean Stovall Where: [facility] HEMATOLOGYOrdered By: John Dumont on 05-01-2023 Hematocrit (Bld) [Volume fraction] 28.1 % Low 3 7.7 - 49.0 % [facility] HemeAutoSS Hemoglobin (Bld) [Mass/Vol] 9.9 g/dL Low 13.5 - 1 7.5 gm/dL [facility] HemeAutoSS HEMATOLOGYOrdered By: Jack Livingston on 05-01-2023 Hematocrit (Bld) [Volume fraction] 26.6 % Low 3 7.7 - 49.0 % [facility] HemeAutoSS Hemoglobin (Bld) [Mass/Vol] 9.4 g/dL Low 13.5 - 1 7.5 gm/dL [facility] HemeAutoSS Hct & Hgbon 05-01-2023 Hematocrit (Bld) [Volume fraction] 28.1 % Low 3 7.7-49.0 [facility] Comment on above: Performed By: #### 7 [id number] #### [facility] [address] [place] [address] Hemoglobin (Bld) [Mass/Vol] 9.9 g/dL Low 13.5-17. 5 [facility] Comment on above: Performed By: #### 7 [id number] #### [facility] [address] [place] [address] Hematocrit (Bld) [Volume fraction] 26.6 % Low 3 7.7-49.0 [facility] Comment on above: Performed By: #### 7 [id number] #### [facility] [address] [place] [address] Hemoglobin (Bld) [Mass/Vol] 9.4 g/dL Low 13.5-17. 5 [facility] Comment on above: Performed By: #### 7 [id number] #### [facility] [address] [place] [address] Hematocrit (Bld) [Volume fraction] 26.3 % Low 3 7.7-49.0 [facility] Comment on above: Performed By: #### 1 [id number] #### [facility] [address] [place] [address] Hemoglobin (Bld) [Mass/Vol] 9.2 g/dL Low 13.5-17. 5 [facility] Comment on above: Performed By: #### 1 [id number] #### [facility] [address] [place] [address] Inpatient Clinical Summaryon 05-01-2023 Inpatient Clinical Summary [address] [address] Clinical Summary Person Information: Name: JANICE SMYTH Age: 57 Years : 1965 Sex: Male PCP: ANTONIO KITCHEN DO Marital Status: Race: White Ethnicity: Non- or Language: Yakut Visit Id: Visit Reason: Dizziness; Shortness of breath; Chest pain; CHEST PAIN Speciality: Acuity: Enc Type: Inpatient Med Service: Medical Arrival: 04/28/2023 20:35:17 Discharge: Dispo Type: Admitted as IP to this Hosp Address: [address] [place] [address] [place] [id number] Provider Notes: Diagnosis: 1:Chest pain; 2:Perinephric hematoma; 3:Retroperitoneal hematoma; 4:LUIS MIGUEL (acute kidney injury); 5:Acute blood loss anemia; 6:Constipation; 7:Coronary artery disease; 8:HTN (hypertension); 9:Kidney stones; 10:Type 2 diabetes mellitus; 11:Anxiety Problems Active Aspirin long-term use BPH (benign prostatic hyperplasia) Kidney stones ST elevation myocardial infarction involving left anterior descending coronary artery Psoriatic arthritis Plaque psoriasis Personal history of malignant melanoma of skin (05/20/2021) Long-term current use of anticoagulant Hypertensive disorder Anxiety Coronary artery disease Type 2 diabetes mellitus Smoking Status: Former Smoker Functional Status: Sensory Deficits: History of Falls: Mobility Assistance Prior to Admission: Independent ADLs: Independent Current Level of Assistance for Self-Care/Mobility: Cognitive Status: Oriented x 3 Allergies No Known Allergies Measurements: Height: 185.42 cm Weight: 77.2 kg Blood Pressure: 146 mmHg / 85 mmHg BMI: 22.45 kg/m2 Procedures No Procedures Documented Immunizations No Immunizations Documented This Visit Final Med List: acetaminophen-oxycodone (Percocet 7.5/325 oral tablet) 2 Tablets By Mouth every 6 hours as needed for pain. Refills: 0. amlodipine (amLODIPine 5 mg Tab) 1 Tablets By Mouth 2 times a day. Refills: 0. atorvastatin (atorvastatin 80 mg Tab) 1 Tablets By Mouth every day. Refills: 3. ixekizumab (Taltz Autoinjector) 80 Milligram Subcutaneous every 4 weeks. latanoprost ophthalmic (latanoprost Opth 0.005% Rosalina) 1 Drops Ophthalmic once a day (at bedtime). losartan (losartan 100 mg Tab) 1 Tablets By Mouth every day. Refills: 2. metformin (metformin 500 mg Tab) multivitamin with minerals (Multivitamins and Minerals) 1 tab By Mouth every day. omega-3 polyunsaturated fatty acids (Fish Oil) 500 Milligram By Mouth every day. paroxetine (paroxetine 10 mg Tab) 1 Tablets By Mouth every day. pyridoxine (Vitamin B6 100 mg Tab) 1 Tablets By Mouth every day. semaglutide (Rybelsus 7 mg oral tablet) 90 EA, TAKE 1 TAB AT LEAST 30MIN. BEFORE FIRST FOOD, DRINK, OR OTHER ORAL MEDS OF THE DAY. Care Team Members: Attending Physician: Danica Antonio MD Consulting Physician: Sean COPE MD Referring Physician: Follow up: With: Address: When: Sean COPE [facility], [address] [place] [address] Business (1) 05/08/2023 11:00 AM With: Address: When: ANTONIO KITCHEN [facility] [address] [facility] [address] [place], [place] [id number] Type Location Start [facility] Office Visit [facility] ALAN Krishna 05/08/2023 11:00 AM 05/08/2023 11:15 AM Confirmed Patient Education Information: Retroperitoneal Bleeding Normal [facility] Inpatient Patient Summaryon 05-01-2023 Inpatient Patient Summary JANICE SMYTH :1965 Visit Date:04/28/2023 Inpatient Discharge Instructions Your Care Team Admitting Physician - Paco ACOSTA, Danica Consulting Physician - Sean COPE MD Reason for Your Visit CP and abdominal pain Your Diagnosis Chest pain Perinephric hematoma Retroperitoneal hematoma LUIS MIGUEL (acute kidney injury) Acute blood loss anemia Constipation Coronary artery disease HTN (hypertension) Kidney stones Type 2 diabetes mellitus Anxiety Chest pain Dizziness Shortness of breath Tests Performed ABO/Rh Antibody Screen Automated Diff BMP Capillary Glucose POC CBC w/ Auto Diff Crossmatch eGFR Hemoglobin and Hematocrit HgbA1c Magnesium Level PT & PTT Troponin 0 Hr. Troponin 3 Hr. Troponin 6 Hr. Troponin 9 Hr. UA With Cult Reflex -- Results Pending -- CT Abdomen/Pelvis w/ Contrast CTA Chest XR Chest Single View Please visit your patient portal for your results or contact your primary care physician. This Is Your Medications List acetaminophen-oxycodone (Percocet 7.5/325 oral tablet) amlodipine (amLODIPine 5 mg Tab) atorvastatin (atorvastatin 80 mg Tab) ixekizumab (Taltz Autoinjector) latanoprost ophthalmic (latanoprost Opth 0.005% Rosalina) losartan (losartan 100 mg Tab) metformin (metformin 500 mg Tab) multivitamin with minerals (Multivitamins and Minerals) omega-3 polyunsaturated fatty acids (Fish Oil) paroxetine (paroxetine 10 mg Tab) pyridoxine (Vitamin B6 100 mg Tab) semaglutide (Rybelsus 7 mg oral tablet) [Image Removed: STOP]Stop taking these medications nitroglycerin (nitroglycerin 0.4 mg sublingual Tab) Procedure History Total knee arthroplasty (02/07/2023), Cardiac catheterisation (02/24/2020), Coronary artery stent (12/26/2019), PCI - Percutaneous coronary intervention (12/26/2019), Excision of malignant skin tumor (01/03/2019), Cystoscopy (07/26/2018), Radiofrequency ablation (09/22/2017), Laser ablation of prostate (07/12/2017), Cystourethroscopy with dilation of urethral stricture (06/08/2017), Shoulder joint instability (2005), Fracture of hand (2003), Tonsillectomy (2001), ACL - Anterior cruciate ligament deficiency (1978), Femur (1973). Discharge Vitals Temperature (Axillary) 36.8 ?C Heart Rate (Monitored) 83 Blood Pressure 146/85 Weight 77.2 kg What to do next Instructions From Your Doctor Event Name Event Result Discharge Restrictions No driving Discharge Diet(s) Fat Modified- Low cholesterol Pending Diagnostic Test Results None Pharmacy Information [facility]- [facility] , [facility] , Other: [facility] Discharge Instructions take Tylenol first and then Motrin as needed thereafter and he can use the Percocet as a last resort. Check an H&H on and will see you in the office a week from Monday. NO LIFTING OR EXERTION-NO DRIVING OR IN CAR PER UROLOGY. Previously Scheduled Follow-Up Appointments Monday 11:00 AM EST With: PRISCA ACOSTA, Sean Stovall Where: [facility] Inpatient Patient Summary [place] [id number] Patient Discharge Instructions PERSON INFORMATION Name: JANICE SMYTH Date of : 1965 Current Date: 05/01/2023 15:16:09 PHYSICIANS Admitting Physician: Danica Antonio MD Primary Care Physician: ANTONIO KITCHEN DO PCP Phone Number: Comment: Discharge Diagnosis: 1:Chest pain; 2:Perinephric hematoma; 3:Retroperitoneal hematoma; 4:LUIS MIGUEL (acute kidney injury); 5:Acute blood loss anemia; 6:Constipation; 7:Coronary artery disease; 8:HTN (hypertension); 9:Kidney stones; 10:Type 2 diabetes mellitus; 11:Anxiety Condition at Discharge: Stable JANICE SMYTH has been given the following list of follow-up instructions, prescriptions, and patient education materials: PATIENT FOLLOW-UP INFORMATION Diet: Fat Modified- Low cholesterol Discharge Activity: Discharge Restrictions: No driving Wound Care Instructions: Remove Your Dressing In Days Call Your Doctor For: IF UNABLE TO CONTACT YOUR PHYSICIAN AND YOU FEEL IT IS AN EMERGENCY, GO TO THE NEAREST EMERGENCY ROOM OR CALL 911 Home Treatment: Devices/Equipment: Blood glucose monitor Special Services: Additional Instructions: take Tylenol first and then Motrin as needed thereafter and he can use the Percocet as a last resort. Check an H&H on and will see you in the office a week from Monday. NO LIFTING OR EXERTION-NO DRIVING OR IN CAR PER UROLOGY. Primary Care Physician to provide the following pending test results: None Follow up: With: Address: When: Sean COPE [facility], [address], [place] [address] Business (1) 05/08/2023 11:00 AM With: Address: When: [facility]ITCHEN [address] [facility] [address] [place], [place] [id number] In the event that this physician does not participate in your insurance network, please consult with your insurance company to find a nearby participating provider. Type Location Start [facility] URO Office Visit [facility] 05/08/2023 11:00 AM 05/08/2023 11:15 AM Confirmed Comment: DEONNA Beasley JAMES P, have received the attached patient education materials/instructions and have verbalized understanding: Patient Signature Date Clinican/Nurse Signature Date HERE ARE THE MEDICATION CHANGES THAT OCCURRED DURING YOUR [facility] New Medications [id number], [address], [place] [id number], [phone] acetaminophen-oxycodone (Percocet 7.5/325 oral tablet) 2 Tablets By Mouth every 6 hours as needed for pain. Refills: 0. Last Dose: Next Dose: amlodipine (amLODIPine 5 mg Tab) 1 Tablets By Mouth 2 times a day. Refills: 0. Last Dose: Next Dose: Medications to Continue with No Changes Other Medications atorvastatin (atorvastatin 80 mg Tab) 1 Tablets By Mouth every day. Refills: 3. Last Dose: Next Dose: ixekizumab (Taltz Autoinjector) 80 Milligram Subcutaneous every 4 weeks., psoriasis Last Dose: Next Dose: latanoprost ophthalmic (latanoprost Opth 0.005% Rosalina) 1 Drops Ophthalmic once a day (at bedtime). Last Dose: Next Dose: losartan (losartan 100 mg Tab) 1 Tablets By Mouth every day. Refills: 2. Last Dose: Next Dose: metformin (metformin 500 mg Tab) Last Dose: Next Dose: multivitamin with minerals (Multivitamins and Minerals) 1 tab By Mouth every day. Last Dose: Next Dose: omega-3 polyunsaturated fatty acids (Fish Oil) 500 Milligram By Mouth every day. Last Dose: Next Dose: paroxetine (paroxetine 10 mg Tab) 1 Tablets By Mouth every day. Last Dose: Next Dose: pyridoxine (Vitamin B6 100 mg Tab) 1 Tablets By Mouth every day. Last Dose: Next Dose: semaglutide (Rybelsus 7 mg oral tablet) 90 EA, TAKE 1 TAB AT LEAST 30MIN. BEFORE FIRST FOOD, DRINK, OR OTHER ORAL MEDS OF THE DAY., Responsible Provider: ANTONIO KITCHEN Last Dose: Next Dose: No Longer Take the Following Medications nitroglycerin (nitroglycerin 0.4 mg sublingual Tab) 1 Tablets Sublingual every 5 minutes as needed Chest pain. not to exceed 3 doses/15 min--if pain persists, seek medical attention. Refills: 0. Comment: MEDICATION LIST PROVIDED FOR YOU IS A LIST OF YOUR CURRENT MEDICATIONS. PLEASE CARRY THIS WITH YOU AT ALL TIMES. acetaminophen-oxycodone (Percocet 7.5/325 oral tablet) 2 Tablets By Mouth every 6 hours as needed for pain. Refills: 0. amlodipine (am (more content not included)... [facility] Insurance Correspondence Off ice05-01-2023 Insurance Correspondence Office [id number]#1.00TIFF [facility] Insurance Correspondence Office [id number]#1.00TIFF [facility] Interdisciplinary Note - Mauricio e Manageron 05-01-2023 Interdisciplinary Note - Mauricio e Imagery Intelligence Pt is awake and alert in bed, previously rounded with Stephanie CASTING MOLDER. Pt is aware of plan to DC home later today. PT is independent from home , will transport at DC, declines any concerns or DC needs. PCP verified and insurance information provided and white board updated. Contact information provided and white board updated. Normal [facility] Comment on above: Result Comment: Elec tronically Signed By: Porfirio COY, Elda\.ravin\Date and Time Signed: 05/01/23 12:03 EST Monitor Recordon 05-01-2023 Monitor Record [id number]#1.00TIFF Normal [facility] Monitor Record [id number]#1.00TIFF Normal [facility] Monitor Record [id number] Normal [facility] Monitor Record [id number]#1.00TIFF Normal [facility] Provider Letteron 05-01-2023 Provider Letter (Inserted Image. Chrissy ble to display) May 01, 2023 JANICE SMYTH [address] [place] [id number] : 1965 To Whom It May Concern, Please excuse above patient from work. Date of Illness: From: 04/27/2023 To: to be determined May Return to Work On: To be determined Restrictions: No work 04/27/23 until released to return to work Comments: Patient had a surgical procedure 04/27/2023, and will be off of work until a future date. Date to be determined. Sincerely, Sean Cope M.D., F.A.C.S. [facility] [address] [place] [phone] Faxed: Normal [facility] Auto Diffon 04-30-2023 Basophils/100 WBC (Bld) 0.4 % Normal 0.0-2.0 [facility] Comment on above: Order Comment: Order Added by Discern Expert. Performed By: #### 1 [id number], 9310453, 9807534, [id number] ####[address] [place] [address] Basophils/Leukocytes Auto (B ld) [Pure # fraction] 0.0 E9/L Normal 0.0-0.2 [facility] Comment on above: Order Comment: Order Added by Discern Expert. Performed By: #### 1 5664051, 7426879, 5621639, [id number] ####[address] [place] [address] Eosinophils/100 WBC (Bld) 2.3 % Normal 0.0-8.0 [facility] Comment on above: Order Comment: Order Added by Discern Expert. Performed By: #### 1 7087050, 3630292, 4654123, 3928239 ####[address] [address] Eosinophils/Leukocytes Auto (Bld) [Pure # fraction] 0.1 E9/L Normal 0.0-0.5 [facility] Comment on above: Order Comment: Order Added by Discern Expert. Performed By: #### 1 9406439, 2520076, 9750633, 0638481 ####[address] [address] Lymphocytes/100 WBC (Bld) 26.8 % Normal 14.0-50.0 [facility] Comment on above: Order Comment: Order Added by Discern Expert. Performed By: #### 1 3756489, 0011800, 5313600, 0959655 ####[address] [address] Lymphocytes/Leukocytes Auto (Bld) [Pure # fraction] 1.3 E9/L Normal 1.0-4.0 [facility] Comment on above: Order Comment: Order Added by Discern Expert. Performed By: #### 1 7330538, 1883901, 7658989, 9149463 ####[address] [place] [address] Monocytes/100 WBC (Bld) 8.9 % Normal 4.0-14.0 [facility] Comment on above: Order Comment: Order Added by Discern Expert. Performed By: #### 1 1869984, 4256607, 5024473, 2108329 ####[facility] [address] [place] [address] Monocytes/Leukocytes Auto (B ld) [Pure # fraction] 0.4 E9/L Normal 0.2-1.0 [facility] Comment on above: Order Comment: Order Added by Discern Expert. Performed By: #### 1 4832571, 8061856, 7884710, 7878135 ####[facility] [address] [place] [address] Neutrophils/100 WBC (Bld) 61.6 % Normal 36.0-75.0 [facility] Comment on above: Order Comment: Order Added by Discern Expert. Performed By: #### 1 1209033, 8472460, 2297726, 5388661 ####[facility] [address] [place] [address] Neutrophils/Leukocytes Auto (Bld) [Pure # fraction] 3.1 E9/L Normal 2.0-7.5 [facility] Comment on above: Order Comment: Order Added by Discern Expert. Performed By: #### 1 0368162, 7331809, 6163227, 6884395 ####[facility] [address] [place] [address] BMPon 04-30-2023 Anion gap [Moles/Vol] 8 mmol/L Normal 6-16 [facility] Comment on above: Performed By: #### 2 [id number] #### [facility] [address] [place] [address] Calcium [Mass/Vol] 8.8 mg/dL Low 8.9-11.1 [facility] Comment on above: Performed By: #### 2 [id number] #### [facility] [address] [place] [address] Chloride [Moles/Vol] 105 mmol/L Normal 101-111 [facility] Comment on above: Performed By: #### 2 [id number] #### [facility] [address] [place] [address] CO2 [Moles/Vol] 31 mmol/L Normal 21-31 [facility] Comment on above: Performed By: #### 2 [id number] #### [facility] [address] [place] [address] Creatinine [Mass/Vol] 1.0 mg/dL Normal 0.5-1.3 [facility] Comment on above: Performed By: #### 2 [id number] #### [facility] [address] [place] [address] Glucose [Mass/Vol] 172 mg/dL Normal 55-199 [facility] Comment on above: Result Comment: If t his glucose result represents a fasting glucose, interpretation should refer to the following reference range: 55-99 mg/dL Performed By: #### 2 [id number] #### [facility] [address] [place] [address] Potassium [Moles/Vol] 3.9 mmol/L Normal 3.5-5.3 [facility] Comment on above: Performed By: #### 2 [id number] #### [facility] [address] [place] [address] Sodium [Moles/Vol] 140 mmol/L Normal 135-145 [facility] Comment on above: Performed By: #### 2 05338969 #### [facility] [address] [place] [address] Urea nitrogen [Mass/Vol] 14 mg/dL Normal 5-21 [facility] Comment on above: Performed By: #### 2 01217086 #### [facility] [address] [place] [address] Urea nitrogen/Creatinine [Ma ss ratio] 14 No Units Normal 10-20 [facility] Comment on above: Performed By: #### 2 [id number] #### [facility] [address] [place] [address] CBC w/ Auto Diffon 3 Erythrocyte distribution wid th (RBC) [Ratio] 13.7 % Normal 10.9-14.2 [facility] Comment on above: Performed By: #### 1 2296282, 7640070, 8589461, 1308266 ####[facility] [address] [place] [address] Hematocrit (Bld) [Volume fraction] 27.2 % Low 3 7.7-49.0 [facility] Comment on above: Performed By: #### 1 6537147, 0323801, 2727336, 4850829 ####[facility] [address] [place] [address] Hemoglobin (Bld) [Mass/Vol] 9.4 g/dL Low 13.5-17. 5 [facility] Comment on above: Performed By: #### 1 4473986, 3272056, 0741532, 0697797 ####[place] [address] MCH (RBC) [Entitic mass] 28.5 pg Normal 27.0-34.0 [facility] Comment on above: Performed By: #### 1 3968750, 9780958, 6880284, 1939901 ####[facility] [address] [place] [address] MCHC (RBC) [Mass/Vol] 34.5 g/dL Normal 31.4-36.0 [facility] Comment on above: Performed By: #### 1 0116578, 3239374, 4666804, 7583222 ####[facility] [address] [place] [address] MCV (RBC) [Entitic vol] 82.5 fL Normal 80.0-100.0 [facility] Comment on above: Performed By: #### 1 1177166, 5812058, 7929575, 1020134 ####[facility] [address] [place] [address] Platelet mean volume (Bld) [Entitic vol] 8.1 fL Normal 6.4-10.8 [facility] Comment on above: Performed By: #### 1 4090946, 4376386, 6533387, 2367433 ####[facility] [address] [place] [address] Platelets (Bld) [#/Vol] 156.0 E9/L Normal 150.0-500.0 [facility] Comment on above: Performed By: #### 1 6888974, 6491399, 9297482, 2961301 ####[facility] [address] RBC (Bld) [#/Vol] 3.3 E12/L Low 4.3-5.9 [facility] Comment on above: Performed By: #### 1 4914121, 0461432, 7237538, 5819783 ####[facility] [address] [place] [address] WBC corrected for nucl RBC A uto (Bld) [#/Vol] 5.0 E9/L Normal 4.0-11.0 [facility] Comment on above: Performed By: #### 1 3549984, 7289966, 1814728, 0742445 ####[facility] [address] [place] [address] CHEMISTRYOrdered By: Lab ROP User on 04-30-2023 Glucose [Mass/Vol] 250 mg/dL High 55 - 99 mg/dL [facility] C POC Subsection Comment on above: Result Comment: Christine godwin RN/ POC Username GILSON SARMIENTO Invalid Interpre tation Code [facility] POC Subsection Sodium [Moles/Vol] 503830212244 mmol/L Invalid I nterpretation Code [facility] POC Subsection Sodium [Moles/Vol] 719852720 mmol/L Invalid Inte rpretation Code [facility] POC Subsection CHEMISTRYOrdered By: SYSTEM SYSTEM on 04-30-2023 Anion gap [Moles/Vol] 8 mmol/L Normal 6 - 16 mEq/L [facility] Calcium [Mass/Vol] 8.8 mg/dL Low 8.9 - 11.1 mg/dL [facility] Remisol Chloride [Moles/Vol] 105 mmol/L Normal 101 - 111 mmol/ L [facility] Remisol CO2 [Moles/Vol] 31 mmol/L Normal 21 - 31 mmol/L [facility] Creatinine [Mass/Vol] 1.0 mg/dL Normal 0.5 - 1.3 mg/d L [facility] GFR/1.73 sq M.predicted among non-blacks MDRD (S/P/Bld) [Vol rate/Area] 87 mL/min/1.73 m2 Normal >=59mL/min/1.73 m2 [facility] Comment on above: Interpretive Data: C hronic kidney disease could be indicated at eGFR's of less than 60 mL/min/1.73m2. Kidney failure is indicated at less than 15 mL/min/1.73m2. Glucose [Mass/Vol] 172 mg/dL Normal 55 - 199 mg/dL [facility] Comment on above: Interpretive Data: I f this glucose result represents a fasting glucose, interpretation should refer to the following reference range: 55-99 mg/dL Potassium [Moles/Vol] 3.9 mmol/L Normal 3.5 - 5.3 mmol /L [facility] Sodium [Moles/Vol] 140 mmol/L Normal 135 - 145 mmol/L [facility] Urea nitrogen [Mass/Vol] 14 mg/dL Normal 5 - 21 mg/d L [facility] Urea nitrogen/Creatinine [Mass ratio] 14 mg/mg Normal 10 - [address] Abdomen/Pelvis w/ Contras ton 04-30-2023 CT Abdomen/Pelvis w/ Contrast Exam Date/Time: 04/30/2023 09:08 EST Reason for Exam: Abdominal/flank pain, stone suspected;Other (please specify) Report IMPRESSION: No significant interval change from 04/28/2023. EXAMINATION: CT Abdomen/Pelvis w/ Contrast HISTORY: Abdominal/flank pain, stone suspected. Abdominal pain. Back pain. Symptoms different worsening. History of lithotripsy. TECHNIQUE: CT of the abdomen and pelvis was performed using standard technique with intravenous contrast, scanning from just above the dome of the diaphragm to the symphysis pubis. Including delayed images through the kidneys. Including sagittal and coronal reconstructions on both phases. All CT scans at this facility use dose modulation, iterative reconstruction, and/or weight based dosing when appropriate to reduce radiation dose to as low as reasonably achievable. COMPARISON: 04/28/2023. RESULT: Liver: Diffuse hepatic steatosis without focal hepatic lesion. Biliary: Again probable calculus in the region of the neck without associated gallbladder wall thickening or pericholecystic fluid. No bile duct dilation. Pancreas: No mass or duct dilation. Spleen: No mass or splenomegaly. Adrenals: No mass. Kidneys/mesentery/peritoneum/retroperitoneum: Crescentic near circumferential hyperdense collection surrounding the right kidney measuring up to 3.3 cm in thickness posteriorly, suggestive of subcapsular hematoma, grossly unchanged. Again there is extension into the right retroperitoneum inferiorly and a small amount within the right paracolic gutter. No distinct areas of active contrast extravasation within limits of this portal venous study. Bilateral renal calculi, unchanged. No hydronephrosis. Delayed phase imaging unremarkable. No suspicious renal lesions. GI tract: No bowel dilation. Fluid-filled loops of small bowel unchanged. No evidence for diverticulitis. Appendix not well-visualized. Report Lymph nodes: No abdominal or pelvic lymphadenopathy. Vasculature: The celiac axis and SMA are patent. The portal vein and branches, splenic vein, SMV, and hepatic veins are patent. Moderate arterial atherosclerotic disease without aneurysm. Pelvis: Small volume free fluid, unchanged. Bladder and prostate unchanged. Bones: No acute osseous findings. Degenerative changes. Soft tissues: Unremarkable. Lower thorax: Trace right pleural effusion, minimally changed. Ordering Provider: Sean COPE FINAL REPORT Dictated: 04/30/2023 9:19 am Josh Land MD Signed (Electronic Signature): 04/30/2023 9:19 am Signed by: Josh Land MD Transcribed by: NATALIE Technologist: RAQUEL Technical Comments GFR (mL/min/1/73m2) 87 Contrast: Isovue 300 Contrast amount in ml's: 100 Rectal Contrast Given? No Oral contrast amount in ml's: 0 Normal [facility] Capillary Glucose POCon 12-0 Glucose [Mass/Vol] 250 mg/dL High 55-99 [facility] Comment on above: Result Comment: Christine godwin RN/ Performed By: #### 2 [id number] ####[facility] [address] [place] [address] Glucose [Mass/Vol] 191 mg/dL High 55-99 [facility] Comment on above: Result Comment: Christine PHILLIPS Performed By: #### 2 [id number] ####[facility] [address] [place] [address] Glucose [Mass/Vol] 196 mg/dL High 55-99 [facility] Comment on above: Result Comment: Christine godwin RN/ Performed By: #### 1 [id number], 30473421, 5530889, 44693305 #### [facility] [address] [place] [address] Glucose [Mass/Vol] 150 mg/dL High 55-99 [facility] Comment on above: Result Comment: Christine godwin RN/ Performed By: #### 1 [id number] #### [facility] [address] [place] [address] Glucose [Mass/Vol] 154 mg/dL High 55-99 [facility] Comment on above: Result Comment: Lucina edison Meter Performed By: #### 1 [id number] #### [facility] [address] [place] [address] Glucose [Mass/Vol] 211 mg/dL High 55-99 [facility] Comment on above: Result Comment: Christine PHILLIPS Performed By: #### 1 [id number], 66413745, 9021885, 60457638 #### [facility] [address] [place] [address] HEMATOLOGYOrdered By: Jack Livingston on 04-30-2023 Hematocrit (Bld) [Volume fraction] 26.3 % Low 3 7.7 - 49.0 % [facility] HemeAutoSS Hemoglobin (Bld) [Mass/Vol] 9.2 g/dL Low 13.5 - 1 7.5 gm/dL [facility] HemeAutoSS HEMATOLOGYOrdered By: SYSTEM SYSTEM on 04-30-2023 Basophils/100 WBC (Bld) 0.4 % Normal 0.0 - 2.0 % [facility] HemeAutoSS Basophils/Leukocytes Auto (B ld) [Pure # fraction] 0.0 E9/L Normal 0.0 - 0.2 E9/L [facility]eAutoSS Eosinophils/100 WBC (Bld) 2.3 % Normal 0.0 - 8.0 % [facility]eAutoSS Eosinophils/Leukocytes Auto (Bld) [Pure # fraction] 0.1 E9/L Normal 0.0 - 0.5 E9/L [facility] HemeAutoS S Lymphocytes/100 WBC (Bld) 26.8 % Normal 14.0 - 50. 0 % [facility] HemeAutoSS Lymphocytes/Leukocytes Auto (Bld) [Pure # fraction] 1.3 E9/L Normal 1.0 - 4.0 E9/L [facility] HemeAutoS S Monocytes/100 WBC (Bld) 8.9 % Normal 4.0 - 14.0 % [facility]eAutoSS Monocytes/Leukocytes Auto (B ld) [Pure # fraction] 0.4 E9/L Normal 0.2 - 1.0 E9/L [facility]eAuto[facility] Neutrophils/100 WBC (Bld) 61.6 % Normal 36.0 - 75. 0 % [facility] Neutrophils/Leukocytes Auto (Bld) [Pure # fraction] 3.1 E9/L Normal 2.0 - 7.5 E9/L [facility] HemeAutoS S HEMATOLOGYOrdered By: Christa Calhoun on 04-30-2023 Erythrocyte distribution wid th (RBC) [Ratio] 13.7 % Normal 10.9 - 14.2 % [facility] MCH (RBC) [Entitic mass] 28.5 pg Normal 27.0 - 34.0 pg [facility] MCHC (RBC) [Mass/Vol] 34.5 g/dL Normal 31.4 - 36.0 gm /dL [facility] MCV (RBC) [Entitic vol] 82.5 fL Normal 80.0 - 100.0 fL [facility] Platelet mean volume (Bld) [Entitic vol] 8.1 fL Normal 6.4 - 10.8 fL [facility] Platelets (Bld) [#/Vol] 156.0 E9/L Normal 150.0 - 500. 0 E9/L [facility]eAuto[facility] RBC (Bld) [#/Vol] 3.3 E12/L Low 4.3 - 5.9 E12/L [facility]eAuto[facility] WBC corrected for nucl RBC A uto (Bld) [#/Vol] 5.0 E9/L Normal 4.0 - 11.0 E9/L [facility] HemeAutoSS Hct & Hgbon 04-30-2023 Hematocrit (Bld) [Volume fraction] 30.1 % Low 3 7.7-49.0 [facility] Comment on above: Performed By: #### 1 [id number] #### [facility] [address] [place] [address] Hemoglobin (Bld) [Mass/Vol] 10.4 g/dL Low 13.5-17. 5 [facility] Comment on above: Performed By: #### 1 [id number] #### [facility] [address] [place] [address] Hematocrit (Bld) [Volume fraction] 30.2 % Low 3 7.7-49.0 [facility] Comment on above: Performed By: #### 1 3378501, 21516628, 4143833, 05770868 #### [facility] [address] [place] [address] Hemoglobin (Bld) [Mass/Vol] 10.4 g/dL Low 13.5-17. 5 [facility] Comment on above: Performed By: #### 1 6993717, 40547823, 6518089, 64859818 #### [facility] [address] [place] [address] Hematocrit (Bld) [Volume fraction] 26.5 % Low 3 7.7-49.0 [facility] Comment on above: Performed By: #### 2 30575307 #### [facility] [address] [place] [address] Hemoglobin (Bld) [Mass/Vol] 9.3 g/dL Low 13.5-17. 5 [facility] Comment on above: Performed By: #### 2 [id number] #### [facility] [address] [place] [address] Interdisciplinary Note - Mauricio e Manageron 04-30-2023 Interdisciplinary Note - Mauricio e Imagery Intelligence CRM to room to discuss DC Planning. Patient is awake, alert and oriented. Patient is from home with his spouse, she will transport at DC. Patient verified PCP, home DME and insurance. Patient on 04/27 had a Right ESWL came back in 04/28 with a retroperitoneal Hematoma. Patient got blood transfusion on 04/29. Patient is assigned to [facility] , see notes. Patient has urology consult. Patient denied any DC need from CRM for HH, DME and PM. Patient was provided CRM contact, tabitha board updated. Anticipated DC TBD. CRM following Normal [facility] Comment on above: Result Comment: Elec tronically Signed By: Sarah Choi\.br\Date and Time Signed: 04/30/23 13:30 EST Monitor Recordon 04-30-2023 Monitor Record [id number]#1.00TIFF Normal [facility] Monitor Record [id number] Normal [facility] Monitor Record [id number]#1.00TIFF [facility] Progress Note-Physicianon Progress Note-Physician Patient: JANICE SMYTH Age: 57 years Sex: Male : 1965 Associated Diagnoses: None Author: PRISCA ACOSTA, Sean Tate X he is feeling much better today. His energy is up after his 2 units of packed red blood cells. He has had several bowel movements. He is voiding well. He is tolerating food. Health Status Allergies: Allergic Reactions (Selected) No Known Allergies Current medications: Home Medications (12) Active atorvastatin 80 mg Tab 80 mg = 1 tab(s), Oral, Daily Fish Oil 500 mg, Oral, Daily latanoprost Opth 0.005% Rosalina 1 drop(s), OPTH, Once a day (at bedtime) losartan 100 mg Tab 100 mg = 1 tab(s), Oral, Daily metformin 500 mg Tab Multivitamins and Minerals 1 tab, Oral, Daily nitroglycerin 0.4 mg sublingual Tab 0.4 mg = 1 tab(s), PRN, SubLingual, q5min paroxetine 10 mg Tab 10 mg = 1 tab(s), Oral, Daily Percocet 7.5/325 oral tablet 2 tab(s), PRN, Oral, q6hr Rybelsus 7 mg oral tablet Taltz Autoinjector 80 mg, SubCutaneous, q4wk Vitamin B6 100 mg Tab 100 mg = 1 tab(s), Oral, Daily Problem list: All Problems Type 2 diabetes mellitus / SNOMED CT 436833261 / Confirmed Coronary artery disease / SNOMED CT 28976948 / Confirmed Anxiety / SNOMED CT 64130054 / Confirmed Hypertensive disorder / SNOMED CT 6602510738 / Confirmed Long-term current use of anticoagulant / SNOMED CT 6796238884 / Confirmed Personal history of malignant melanoma of skin / SNOMED CT 1522751896 / Confirmed Plaque psoriasis / SNOMED CT 742929567 / Confirmed Psoriatic arthritis / SNOMED CT 697101585 / Confirmed ST elevation myocardial infarction involving left anterior descending coronary artery / SNOMED CT 22157216 / Confirmed Kidney stones / SNOMED CT 718055261 / Confirmed BPH (benign prostatic hyperplasia) / SNOMED CT 185340546 / Confirmed Aspirin long-term use / SNOMED CT 4206920804 / Confirmed Degenerative joint disease / SNOMED CT 3932628839 / Confirmed Arthritis / SNOMED CT 4863800 / Confirmed Glaucoma / SNOMED CT 79036159 / Confirmed Depression / SNOMED CT 34572585 / Confirmed Intermittent chest pain / SNOMED CT 41473491 / Confirmed High blood pressure / SNOMED CT 3089535684 / Confirmed Histories Past Medical History: Resolved STEMI - ST elevation myocardial infarction (0053090323): Onset on 12/26/2019 at 54 years. Resolved. Diabetes type (8459269206): Resolved. Family History: Diabetes mellitus type 1 Father Prostate cancer Father Procedure history: Total RIGHTknee arthroplasty (0752707141) on 02/07/2023 at 57 Years. Cardiac catheterisation (042303411) on 02/24/2020 at 54 Years. PCI - Percutaneous coronary intervention (2512267930) on 12/26/2019 at 54 Years. Coronary artery stent ([id number]) on 12/26/2019 at 54 Years. 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 Cystoscopy (6991641070) on 07/26/2018 at 52 Years. Radiofrequency ablation SI joint (0454352086) on 09/22/2017 at 51 Years. Laser of prostate w/ green light pvp ([id number]) on 07/12/2017 at 51 Years. Cystourethroscopy with dilation of urethral stricture ([id number]) on 06/08/2017 at 51 Years. 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 Comments: 12/26/2019 9:24 Lesvia Robbins RN rotater cuff Fracture of hand with metal pins ([id number]) in 2003 at 38 Years. Tonsillectomy ([id number]) in 2001 at 36 Years. ACL - Anterior cruciate ligament deficiency ([id number]) in 1978 at 13 Years. Femur ([id number]) in 1973 at 8 Years. Comments: 12/26/2019 9:22 Lesvia Robbins RN tumor removed femur Social History Social & Psychosocial Habits Alcohol 04/29/2023 Risk Assessment: Low Risk 04/29/2023 Use: Current Type: Liquor Frequency: Daily Comment: 2-3 drinks/day - 01/16/2023 07:41 - Brittaney Gomez RN Substance Abuse 04/29/2023 Risk Assessment: Denies Substance Abuse Tobacco 04/29/2023 Risk Assessment: Denies Tobacco Use 04/29/2023 Tobacco Use: Former smoker, quit more Smokeless tobacco use: Never Type: Cigarettes Concerns about tobacco use in household: No Smoking Cessation Yes Comment: quit 29 yrs ago-smoked 1-1.5ppd - 02/21/2020 14:45 - Kimberly Goff RN Review / Management Results review: Lab results 04/30/2023 11:07 EST Glucose Cap 196 mg/dL HI POC Device SN [id number] POC User ID [id number] POC Username POC Username 04/30/2023 11:04 EST HGB 10.4 gm/dL LOW Hct 30.2 % LOW 04/30/2023 7:56 EST Glucose Cap 150 mg/dL HI POC Device SN [id number] POC User ID [id number] POC Username POC Username 04/30/2023 6:25 EST Glucose Cap 154 mg/dL HI POC Device SN [id number] POC User ID [id number] POC Username THERONRD 04/30/2023 5:53 EST WBC 5.0 E9/L RBC 3.3 E12/L LOW HGB 9.3 gm/dL LOW HGB 9.4 gm/dL LOW Hct 26.5 % LOW Hct 27.2 % LOW MCV 82.5 fL MCH 28.5 pg MCHC 34.5 gm/dL RDW 13.7 % Platelet 156.0 E9/L MPV 8.1 (more content not included)... Normal [facility] Comment on above: Result Comment: Elec tronically Signed By: PRISCA ACOSTA, Sean Nick\Date and Time Signed: 04/30/23 14:56 EST eGFRon 04-30-2023 GFR/1.73 sq M.predicted elvin g non-blacks MDRD (S/P/Bld) [Vol rate/Area] 87 mL/min/1.73 m2 Normal >=59 [facility] Comment on above: Order Comment: Order added by Discern Expert. Result Comment: Technology Support Analyst juliana kidney disease could be indicated at eGFR's of less than 60 mL/min/1.73m2. Kidney failure is indicated at less than 15 mL/min/1.73m2. Performed By: #### 2 [id number] #### [facility] [address] [place] [address] ABO/Rhon 04-29-2023 ABO/Rh Positive Invalid Interpretation Code [facility] Comment on above: Performed By: #### 1 [id number], [id number], [id number] ####[facility] [address] [place] [address] ABO/Rh History Checkon 04-29 ABO/Rh History Check Verified Hx Blood Type Normal [facility] Comment on above: Performed By: #### 1 [id number], [id number], [id number], [id number] ####[facility] [address] [place] [address] ABSCon 04-29-2023 ABSC Gel Interp Negative Normal [facility] Comment on above: Performed By: #### 1 [id number], [id number], [id number], [id number] ####[facility] [address] [place] [address] Auto Diffon 04-29-2023 Basophils/100 WBC (Bld) 0.5 % Normal 0.0-2.0 [facility] Comment on above: Order Comment: Order Added by Discern Expert. Performed By: #### 1 [id number] #### [facility] [address] [place] [address] Basophils/Leukocytes Auto (B ld) [Pure # fraction] 0.0 E9/L Normal 0.0-0.2 [facility] Comment on above: Order Comment: Order Added by Discern Expert. Performed By: #### 1 [id number] #### [facility] [address] [place] [address] Eosinophils/100 WBC (Bld) 1.0 % Normal 0.0-8.0 [facility] Comment on above: Order Comment: Order Added by Discern Expert. Performed By: #### 1 [id number] #### [facility] [address] [place] [address] Eosinophils/Leukocytes Auto (Bld) [Pure # fraction] 0.1 E9/L Normal 0.0-0.5 [facility] Comment on above: Order Comment: Order Added by Discern Expert. Performed By: #### 1 [id number] #### [facility] [address] [place] [address] Lymphocytes/100 WBC (Bld) 31.6 % Normal 14.0-50.0 [facility] Comment on above: Order Comment: Order Added by Discern Expert. Performed By: #### 1 [id number] #### [facility] [address] [place] [address] Lymphocytes/Leukocytes Auto (Bld) [Pure # fraction] 1.9 E9/L Normal 1.0-4.0 [facility] Comment on above: Order Comment: Order Added by Discern Expert. Performed By: #### 1 [id number] #### [facility] [address] [place] [address] Monocytes/100 WBC (Bld) 9.5 % Normal 4.0-14.0 [facility] Comment on above: Order Comment: Order Added by Discern Expert. Performed By: #### 1 [id number] #### [facility] [address] [place] [address] Monocytes/Leukocytes Auto (B ld) [Pure # fraction] 0.6 E9/L Normal 0.2-1.0 [facility] Comment on above: Order Comment: Order Added by Discern Expert. Performed By: #### 1 [id number] #### [facility] [address] [place] [address] Neutrophils/100 WBC (Bld) 57.4 % Normal 36.0-75.0 [facility] Comment on above: Order Comment: Order Added by Discern Expert. Performed By: #### 1 [id number] #### [facility] [address] [place] [address] Neutrophils/Leukocytes Auto (Bld) [Pure # fraction] 3.5 E9/L Normal 2.0-7.5 [facility] Comment on above: Order Comment: Order Added by Discern Expert. Performed By: #### 1 [id number] #### [facility] [address] [place] [address] BLOOD BANKOrdered By: Christa Calhoun on 04-29-2023 ABO/Rh Interp Positive Invalid Interpretation Code [facility] BB Subsection ABSC Gel Interp Negative (04/29/23 2:38 PM) Normal [facility] BB Subsection BMPon 04-29-2023 Creatinine [Mass/Vol] 1.2 mg/dL Normal 0.5-1.3 [facility] Comment on above: Order Comment: Waiti maciej to hear from if this can be added on to AM labs. HH Performed By: #### 1 [id number] #### [facility] [address] [place] [address] Urea nitrogen [Mass/Vol] 18 mg/dL Normal 5-21 [facility] Comment on above: Order Comment: Johnna wing to hear from if this can be added on to AM labs. HH Performed By: #### 1 [id number] #### [facility] [address] [place] [address] Urea nitrogen/Creatinine [Ma ss ratio] 15 No Units Normal 10-20 [facility] Comment on above: Order Comment: Johnna wing to hear from if this can be added on to AM labs. HH Performed By: #### 1 [id number] #### [facility] [address] [place] [address] Anion gap [Moles/Vol] 8 mmol/L Normal 6-16 [facility] Comment on above: Order Comment: Johnna wing to hear from if this can be added on to AM labs. HH Performed By: #### 1 [id number] #### [facility] [address] [place] [address] Calcium [Mass/Vol] 8.5 mg/dL Low 8.9-11.1 [facility] Comment on above: Order Comment: Johnna wing to hear from if this can be added on to AM labs. HH Performed By: #### 1 [id number] #### [facility] [address] [place] [address] Chloride [Moles/Vol] 104 mmol/L Normal 101-111 [facility] Comment on above: Order Comment: Johnna wing to hear from if this can be added on to AM labs. HH Performed By: #### 1 [id number] #### [facility] [address] [place] [address] CO2 [Moles/Vol] 29 mmol/L Normal 21-31 [facility] Comment on above: Order Comment: Johnna wing to hear from if this can be added on to AM labs. HH Performed By: #### 1 [id number] #### [facility] [address] [place] [address] Glucose [Mass/Vol] 165 mg/dL Normal 55-199 [facility] Comment on above: Order Comment: Johnna wing to hear from if this can be added on to AM labs. HH Result Comment: If t his glucose result represents a fasting glucose, interpretation should refer to the following reference range: 55-99 mg/dL Performed By: #### 1 [id number] #### [facility] [address] [place] [address] Potassium [Moles/Vol] 4.0 mmol/L Normal 3.5-5.3 [facility] Comment on above: Order Comment: Johnna wing to hear from if this can be added on to AM labs. HH Performed By: #### 1 [id number] #### [facility] [address] [place] [address] Sodium [Moles/Vol] 137 mmol/L Normal 135-145 [facility] Comment on above: Order Comment: Johnna wing to hear from if this can be added on to AM labs. HH Performed By: #### 1 [id number] #### [facility] [address] [place] [address] Anion gap [Moles/Vol] 8 mmol/L Normal 6-16 [facility] Comment on above: Order Comment: dakota robins had an H&H drawn at 300am and has q 6 hour orders from there. [facility] 04/29/2023 03:19:14 EST Performed By: #### 1 [id number] #### [facility] [address] [place] [address] Calcium [Mass/Vol] 8.6 mg/dL Low 8.9-11.1 [facility] Comment on above: Order Comment: dakota robins had an H&H drawn at 300am and has q 6 hour orders from there. [facility] 04/29/2023 03:19:14 EST Performed By: #### 1 [id number] #### [facility] [address] [place] [address] Chloride [Moles/Vol] 104 mmol/L Normal 101-111 [facility] Comment on above: Order Comment: dakota robins had an H&H drawn at 300am and has q 6 hour orders from there. [facility] 04/29/2023 03:19:14 EST Performed By: #### 1 [id number] #### [facility] [address] [place] [address] CO2 [Moles/Vol] 27 mmol/L Normal 21-31 [facility] Comment on above: Order Comment: dakota robins had an H&H drawn at 300am and has q 6 hour orders from there. [facility] 04/29/2023 03:19:14 EST Performed By: #### 1 [id number] #### [facility] [address] [place] [address] Creatinine [Mass/Vol] 1.2 mg/dL Normal 0.5-1.3 [facility] Comment on above: Order Comment: dakota robins had an H&H drawn at 300am and has q 6 hour orders from there. [facility] 04/29/2023 03:19:14 EST Performed By: #### 1 [id number] #### [facility] [address] [place] [address] Glucose [Mass/Vol] 181 mg/dL Normal 55-199 [facility] Comment on above: Order Comment: dakota robins had an H&H drawn at 300am and has q 6 hour orders from there. [facility] 04/29/2023 03:19:14 EST Result Comment: If t his glucose result represents a fasting glucose, interpretation should refer to the following reference range: 55-99 mg/dL Performed By: #### 1 [id number] #### [facility] [address] [place] [address] Potassium [Moles/Vol] 4.1 mmol/L Normal 3.5-5.3 [facility] Comment on above: Order Comment: dakota robins had an H&H drawn at 300am and has q 6 hour orders from there. [facility] 04/29/2023 03:19:14 EST Performed By: #### 1 [id number] #### [facility] [address] [place] [address] Sodium [Moles/Vol] 135 mmol/L Normal 135-145 [facility] Comment on above: Order Comment: dakota robins had an H&H drawn at 300am and has q 6 hour orders from there. [facility] 04/29/2023 03:19:14 EST Performed By: #### 1 [id number] #### [facility] [address] [place] [address] Urea nitrogen [Mass/Vol] 19 mg/dL Normal 5-21 [facility] Comment on above: Order Comment: dakota robins had an H&H drawn at 300am and has q 6 hour orders from there. [facility] 04/29/2023 03:19:14 EST Performed By: #### 1 [id number] #### [facility] [address] [place] [address] Urea nitrogen/Creatinine [Ma ss ratio] 16 No Units Normal 10-20 [facility] Comment on above: Order Comment: dakota robins had an H&H drawn at 300am and has q 6 hour orders from there. [facility] 04/29/2023 03:19:14 EST Performed By: #### 1 [id number] #### [facility] [address] [place] [address] Blood Bank ID#on 04-29-2023 BBID# [id number] Invalid Interpretation Code [facility] Comment on above: Performed By: #### 1 [id number], [id number], [id number] ####[facility] [address] [place] [address] CBC w/ Auto Diffon 3 Erythrocyte distribution wid th (RBC) [Ratio] 14.0 % Normal 10.9-14.2 [facility] Comment on above: Order Comment: Spoke with Violetta Gabriel Do not need CBC and H&H ...Run off extra Lav from AM labs Performed By: #### 1 [id number] #### [facility] [address] [place] [address] Hematocrit (Bld) [Volume fraction] 22.5 % Low 3 7.7-49.0 [facility] Comment on above: Order Comment: Spoke with Violetta Gabriel Do not need CBC and H&H ...Run off extra Lav from AM labs Performed By: #### 1 [id number] #### [facility] [address] [place] [address] Hemoglobin (Bld) [Mass/Vol] 7.7 g/dL Low 13.5-17. 5 [facility] Comment on above: Order Comment: Spoke with Violetta Gabriel Do not need CBC and H&H ...Run off extra Lav from AM labs Performed By: #### 1 [id number] #### [facility] [address] [place] [address] MCH (RBC) [Entitic mass] 28.3 pg Normal 27.0-34.0 [facility] Comment on above: Order Comment: Spoke with Violetta Gabriel Do not need CBC and H&H ...Run off extra Lav from AM labs Performed By: #### 1 [id number] #### [facility] [address] [place] [address] MCHC (RBC) [Mass/Vol] 34.3 g/dL Normal 31.4-36.0 [facility] Comment on above: Order Comment: Spoke with Violetta Gabriel Do not need CBC and H&H ...Run off extra Lav from AM labs Performed By: #### 1 [id number] #### [facility] [address] [place] [address] MCV (RBC) [Entitic vol] 82.4 fL Normal 80.0-100.0 [facility] Comment on above: Order Comment: Spoke with Violetta Gabriel Do not need CBC and H&H ...Run off extra Lav from AM labs Performed By: #### 1 [id number] #### [facility] [address] [place] [address] Platelet mean volume (Bld) [Entitic vol] 8.7 fL Normal 6.4-10.8 [facility] Comment on above: Order Comment: Spoke with Violetta Gabriel Do not need CBC and H&H ...Run off extra Lav from AM labs Performed By: #### 1 [id number] #### [facility] [address] [place] [address] Platelets (Bld) [#/Vol] 147.0 E9/L Low 150.0-500.0 [facility] Comment on above: Order Comment: Spoke with Violetta Gabriel Do not need CBC and H&H ...Run off extra Lav from AM labs Performed By: #### 1 [id number] #### [facility] [address] [place] [address] RBC (Bld) [#/Vol] 2.7 E12/L Low 4.3-5.9 [facility] Comment on above: Order Comment: Spoke with Violetta Gabriel Do not need CBC and H&H ...Run off extra Lav from AM labs Performed By: #### 1 [id number] #### [facility] [address] [place] [address] WBC corrected for nucl RBC A uto (Bld) [#/Vol] 6.0 E9/L Normal 4.0-11.0 [facility] Comment on above: Order Comment: Spoke with Violetta Gabriel Do not need CBC and H&H ...Run off extra Lav from AM labs Performed By: #### 1 [id number] #### [facility] [address] [place] [address] CHEMISTRYOrdered By: SYSTEM SYSTEM on 04-29-2023 Anion gap [Moles/Vol] 8 mmol/L Normal 6 - 16 mEq/L [facility] Remisol Calcium [Mass/Vol] 8.5 mg/dL Low 8.9 - 11.1 mg/dL [facility] Remisol Chloride [Moles/Vol] 104 mmol/L Normal 101 - 111 mmol/ L [facility] CO2 [Moles/Vol] 29 mmol/L Normal 21 - 31 mmol/L [facility] Remisol Creatinine [Mass/Vol] 1.2 mg/dL Normal 0.5 - 1.3 mg/d L [facility] GFR/1.73 sq M.predicted among non-blacks MDRD (S/P/Bld) [Vol rate/Area] 70 mL/min/1.73 m2 Normal >=59mL/min/1.73 m2 [facility] Chem S Comment on above: Interpretive Data: C hronic kidney disease could be indicated at eGFR's of less than 60 mL/min/1.73m2. Kidney failure is indicated at less than 15 mL/min/1.73m2. Glucose [Mass/Vol] 165 mg/dL Normal 55 - 199 mg/dL [facility] Comment on above: Interpretive Data: I f this glucose result represents a fasting glucose, interpretation should refer to the following reference range: 55-99 mg/dL Magnesium [Mass/Vol] 1.5 mg/dL Normal 1.3 - 2.4 mg/dL [facility] Remisol Potassium [Moles/Vol] 4.0 mmol/L Normal 3.5 - 5.3 mmol /L [facility] Sodium [Moles/Vol] 137 mmol/L Normal 135 - 145 mmol/L [facility] Urea nitrogen [Mass/Vol] 18 mg/dL Normal 5 - 21 mg/d L [facility] Urea nitrogen/Creatinine [Mass ratio] 15 mg/mg Normal 10 - 20 [facility] Anion gap [Moles/Vol] 8 mmol/L Normal 6 - 16 mEq/L [facility] Remisol Calcium [Mass/Vol] 8.6 mg/dL Low 8.9 - 11.1 mg/dL [facility] Remisol Chloride [Moles/Vol] 104 mmol/L Normal 101 - 111 mmol/ L [facility] CO2 [Moles/Vol] 27 mmol/L Normal 21 - 31 mmol/L [facility] Remisol Creatinine [Mass/Vol] 1.2 mg/dL Normal 0.5 - 1.3 mg/d L [facility] Remisol GFR/1.73 sq M.predicted among non-blacks MDRD (S/P/Bld) [Vol rate/Area] 70 mL/min/1.73 m2 Normal >=59mL/min/1.73 m2 [facility] Chem S Comment on above: Interpretive Data: C hronic kidney disease could be indicated at eGFR's of less than 60 mL/min/1.73m2. Kidney failure is indicated at less than 15 mL/min/1.73m2. Glucose [Mass/Vol] 181 mg/dL Normal 55 - 199 mg/dL [facility] Comment on above: Interpretive Data: I f this glucose result represents a fasting glucose, interpretation should refer to the following reference range: 55-99 mg/dL Potassium [Moles/Vol] 4.1 mmol/L Normal 3.5 - 5.3 mmol /L [facility] Remisol Sodium [Moles/Vol] 135 mmol/L Normal 135 - 145 mmol/L [facility] Troponin I.cardiac [Mass/Vol] 29.60 pg/mL Normal 15.90 - 38.40 pg/mL [facility] Comment on above: Interpretive Data: T he 95% CI (Confidence Interval) PPV (Positive Predictive Value) for myocardial infarction in females is 38 pg/mL, in males 51 pg/mL. The results should be used in conjunction with clinical conditions of myocardial infarction. ([facility] High Sensitivity Troponin I Instructions For Use, [place], December 2017) Urea nitrogen [Mass/Vol] 19 mg/dL Normal 5 - 21 mg/d L [facility] Urea nitrogen/Creatinine [Ma ss ratio] 16 mg/mg Normal 10 - 20 [facility] Troponin I.cardiac [Mass/Vol] 22.70 pg/mL Normal 15.90 - 38.40 pg/mL [facility] Comment on above: Interpretive Data: T he 95% CI (Confidence Interval) PPV (Positive Predictive Value) for myocardial infarction in females is 38 pg/mL, in males 51 pg/mL. The results should be used in conjunction with clinical conditions of myocardial infarction. ([employer] High Sensitivity Troponin I Instructions For Use, [place], December 2017) Troponin I.cardiac [Mass/Vol] 21.10 pg/mL Normal 15.90 - 38.40 pg/mL [facility] Comment on above: Interpretive Data: T he 95% CI (Confidence Interval) PPV (Positive Predictive Value) for myocardial infarction in females is 38 pg/mL, in males 51 pg/mL. The results should be used in conjunction with clinical conditions of myocardial infarction. ([employer] High Sensitivity Troponin I Instructions For Use, [place], December 2017) CHEMISTRYOrdered By: Hunter Culver on 04-29-2023 HbA1c (Bld) [Mass fraction] 8.2 % High <=5.9% [facility] ChemAutoSS CT Abdomen/Pelvis w/ Contras ton 04-29-2023 CT Abdomen/Pelvis w/ Contrast Exam Date/Time: 04/28/2023 21:54 EST Reason for Exam: RLQ abdominal pain;Other (please specify) Report IMPRESSION: Crescent[place] near circumferential hyperdense collection surrounding the right kidney, suspicious for subcapsular hematoma. There is also extension into the right retroperitoneum and right paracolic gutter. No active extravasation within limits of portal venous phase imaging. Nonobstructing renal calculi. Possible cholelithiasis. Hepatic steatosis. EXAMINATION: CT Abdomen/Pelvis w/ Contrast HISTORY: RLQ abdominal pain. Chest pain radiating to the shoulder and back. Shortness of breath. History of recent lithotripsy at outside facility for kidney stones. Lightheaded. Dizzy. TECHNIQUE: CT of the abdomen and pelvis was performed using standard technique with intravenous contrast, scanning from just above the dome of the diaphragm to the symphysis pubis. Including delayed images through the kidneys. Including sagittal and coronal reconstructions on both phases. All CT scans at this facility use dose modulation, iterative reconstruction, and/or weight based dosing when appropriate to reduce radiation dose to as low as reasonably achievable. COMPARISON: None. RESULT: Liver: Diffuse hepatic steatosis without focal hepatic lesion. Biliary: Possible small calculus in the region of the neck. No associated gallbladder wall thickening or pericholecystic fluid. Pancreas: No mass or duct dilation. Spleen: No mass or splenomegaly. Adrenals: No mass. Kidneys and mesentery/peritoneum/retroperitoneum: Crescentic near circumferential hyperdense collection surrounding the right kidney measuring up to 3.2 cm in Report thickness posteriorly, and suspicious for subcapsular hematoma. There is also extension of hyperdense fluid into the right retroperitoneum inferiorly, and small amount of hyperdense fluid in the right paracolic gutter. No distinct area of active extravasation within limits of portal venous phase. Bilateral renal calculi with the largest on the right measuring around 5 mm. No hydronephrosis. Delayed phase imaging with normal excreted contrast bilaterally without delayed nephrogram. No suspicious renal lesions. Low-attenuation benign cysts and other subcentimeter lesions, not requiring follow-up. GI tract: No bowel dilation. Fluid-filled loops of normal caliber small bowel. Scattered colonic feces. No evidence for diverticulitis. Appendix not well-visualized. Lymph nodes: No abdominal or pelvic lymphadenopathy. Vasculature: The celiac axis and SMA are patent. The portal vein and branches, splenic vein, SMV, and hepatic veins are patent. Moderate arterial atherosclerotic disease without aneurysm. Pelvis: Small volume free fluid, likely secondary to the above renal findings. Possible TURP defect of the prostate. Bladder grossly unremarkable and partially decompressed. Bones: No acute osseous findings. Degenerative changes. Soft tissues: Unremarkable. Lower thorax: A chest CT performed will be reported separately. Ordering Provider: Doug Tafoya FINAL REPORT Dictated: 04/29/2023 10:49 am Josh Land MD. Signed (Electronic Signature): 04/29/2023 10:49 am Signed by: Josh Land MD Transcribed by: NATALIE Technologist: MARYLIN Technical Comments GFR (mL/min/1/73m2) 53 Contrast: Isovue 370 Contrast amount in ml's: 100 Rectal Contrast Given? No Oral contrast amount in ml's: [address] [facility] CTA Cheston 04-29-2023 CTA Chest Exam Date/Time: 04/28/2023 21:54 EST Reason for Exam: Pulmonary embolism (PE) suspected, high prob;Other (please specify) Report IMPRESSION: No CT evidence for acute pulmonary embolism. Trace right pleural effusion. EXAMINATION: CHEST CT WITH CONTRAST (PULMONARY EMBOLISM PROTOCOL) CLINICAL HISTORY: Pulmonary embolism (PE) suspected, high prob Technique: Spiral CTA acquisition of the chest from the thoracic inlet to the upper abdomen following IV contrast. Including MIP reconstructions in coronal plane. Other sagittal and coronal reconstructions. Contrast: IV administration of 100 ml Iso[address] scans at this facility use dose modulation, iterative reconstruction, and/or weight based dosing when appropriate to reduce radiation dose to as low as reasonably achievable. Comparison: Chest x-ray 04/28/2023. RESULT: Some limitations from motion. Within these limits: Evaluation for thromboembolic disease: No evidence for thromboembolic disease in the main, lobar, segmental, and visualized subsegmental pulmonary arteries. No evidence for right heart strain. Lung parenchyma and pleura: Central airways grossly patent. Trace right pleural effusion. No left pleural effusion. No pneumothorax. Probable atelectasis at the right lung base adjacent to the effusion. No suspicious pulmonary nodules. Thoracic inlet, heart, and mediastinum: Visualized thyroid unremarkable. No axillary, mediastinal, or hilar lymphadenopathy. Mild thoracic aorta atherosclerotic calcifications without aneurysm. Normal pulmonary artery size. Normal heart size. Coronary calcifications and/or stents. No pericardial effusion or thickening. Esophagus nondilated. Bones: No acute osseous findings. No destructive osseous lesions. Degenerative changes. Report Soft tissues: Unremarkable. Upper abdomen: See concurrently performed and separately dictated CT. Ordering Provider: Dokken, Kaylinn FINAL REPORT Dictated: 04/29/2023 11:07 am Josh Land MD Signed (Electronic Signature): 04/29/2023 11:07 am Signed by: Josh Land MD Transcribed by: NATALIE Technologist: MARYLIN Technical Comments GFR (mL/min/1/73m2) 53 Contrast: Isovue 370 Contrast amount in ml's: 100 Normal [facility] Capillary Glucose POCon 12-0 Glucose [Mass/Vol] 175 mg/dL High 55-99 [facility] Comment on above: Result Comment: Lucina edison Meter Performed By: #### 1 [id number] #### [facility] [address] [place] [address] Glucose [Mass/Vol] 139 mg/dL High [address] [place] [address] Comment on above: Result Comment: Christine PHILLIPS Performed By: #### 2 [id number] ####[facility] [address] [place] [address] Glucose [Mass/Vol] 143 mg/dL High [address] [place] [address] Comment on above: Result Comment: Christine PHILLIPS Performed By: #### 2 [id number] ####[facility] [address] [place] [address] Glucose [Mass/Vol] 162 mg/dL High [address] [place] [address] Comment on above: Result Comment: Christine PHILLIPS Performed By: #### 2 [id number] ####[facility] [address] [place] [address] Glucose [Mass/Vol] 168 mg/dL High [address] [place] [address] Comment on above: Result Comment: Lucina edison Meter Performed By: #### 7 [id number] #### [facility] [address] [place] [address] Glucose [Mass/Vol] 278 mg/dL High -[address] [place] [address] Comment on above: Result Comment: Christine PHILLIPS Performed By: #### 1 [id number] #### [facility] [address] [place] [address] Consultation Noteon 04-29-20 Consultation Note Patient: MARIO SMYTH Age: 57 years Sex: Male : 1965 Associated Diagnoses: None Author: Sean COPE MD Chief Complaint 04/29/2023 0:07 EST CP and abdominal pain 04/28/2023 20:38 EST Pt. came here d/t chest pain moves to both shoulder and back, SOB that started today. Pt got Sx ysterday by Dr. cope at [facility], after being deischarge he felt lightheaded and dizzy the whole night. Hx of 2019, got stent put in. Got 1 nitro History of Present Illness X this gentleman presented to the ER last night with some chest pain and some right-sided flank pain. His workup revealed that he had a right perinephric hematoma which was approximately 3.2 cm in size by CT scan done just yesterday. His hemoglobin yesterday was 8.2 and the last 2 hemoglobins were 7.7. Hemodynamically he is stable. Of note is that he had ESWL treatment done just 2 days ago for right nephrolithiasis. He was not on any blood thinners. All of his coags were normal. His preoperative hemoglobin was in the 13 range. Review of Systems ROS reviewed as documented in chart Health Status Allergies: Allergic Reactions (Selected) No Known Allergies, Allergies (1) Active Reaction No Known Allergies None Documented Current medications: (Selected) Inpatient Medications Ordered Dextrose 50% Soln-IV: 50 mL, Soln-IV, IV Push, Once PRN Blood glucose, Routine, Start date 04/29/23 0:10:00 EST Dulcolax 10 mg Supp: 10 mg = 1 supp, Supp, Rectal, Daily PRN Constipation, Routine, Start date 04/29/23 0:33:00 EST, 04/29/23 0:33:00 EST Insulin Lispro Sliding Scale: 0-10 Unit(s), Injection-Insulin, SubCutaneous, QIDACHS, Routine, Start date 04/29/23 7:30:00 EST Milk of Magnesia 8% Susp-Oral: 4 tbsp, Susp-Oral, Oral, Once, Stop date 04/29/23 12:31:00 EST, NOW, Start date 04/29/23 12:31:00 EST NS 1000 mL Soln-IV 1,000 mL: 1,000 mL, IV, 125 mL/hr, Routine, Start date 04/29/23 0:04:00 EST, 8 hour(s), Total volume (mL): 1,000, 97 kg, 2.23, m2 Sodium Chloride 0.9% IV Rosalina 1000 mL 1,000 mL: 1,000 mL, IV, 983.61 mL/hr, for 30 day(s), Stop date 05/28/23 21:07:00 EST, STAT, Start date 04/28/23 21:08:00 EST, 61 minute(s), Total volume (mL): 1,000, 97 kg, 2.23, m2 Zofran 4 mg/2 mL Injection: 4 mg = 2 mL, Injection, IV Push, q6hr PRN Nausea, Routine, Start date 04/29/23 0:04:00 EST, 04/29/23 0:04:00 EST acetaminophen additive + Generic Diluent 100 mL: 1,000 mg = 100 mL, Soln-IV, IV Piggyback, q6hr PRN Pain, Routine, Start date 04/29/23 0:04:00 EST, 400 mL/hr, Infuse over 15 minute(s) bisacodyl 5 mg Oral EC Tab: 20 mg = 4 tab(s), Tab-EC, Oral, Once, Stop date 04/29/23 13:00:00 EST, Routine, Start date 04/29/23 13:00:00 EST, 04/29/23 12:30:00 EST insulin glargine 100 units/mL SubQ Rosalina 10 mL: 15 unit(s) = 0.15 mL, Injection-Insulin, SubCutaneous, Daily, Routine, Start date 04/29/23 9:00:00 EST latanoprost Opth 0.005% Rosalina: 1 drop(s), Soln-Opth, OPTH, Once a day (at bedtime), Routine, Start date 04/29/23 21:00:00 EST morphine 2 mg/mL Inj: 4 mg = 2 mL, Injection, IV Push, q4hr PRN Pain for 5 day(s), Stop date 05/04/23 0:03:00 EST, Routine, Start date 04/29/23 0:04:00 EST, 04/29/23 0:04:00 EST Prescriptions Prescribed atorvastatin 80 mg Tab: 80 mg = 1 tab(s), Oral, Daily, # 90 tab(s), Refills(s) 3, Pharmacy: [facility], 186, cm, 10/20/20 11:38:00 EDT, Height/Length Dosing, 96, kg, 10/20/20 11:38:00 EDT, Weight Dosing losartan 100 mg Tab: 100 mg = 1 tab(s), Oral, Daily, # 90 tab(s), Refills(s) 2, Pharmacy: [facility]/pharmacy #[id number], 188, cm, 01/16/23 7:42:00 EDT, Height/Length Dosing, 97, kg, 01/16/23 7:42:00 EDT, Weight Dosing nitroglycerin 0.4 mg sublingual Tab: 0.4 mg = 1 tab(s), SubLingual, q5min, PRN Chest pain, not to exceed 3 doses/15 min--if pain persists, seek medical attention, # 30 tab(s), Refills(s) 0, Pharmacy: [facility]/pharmacy #[id number], 185.4, cm, 02/21/20 20:48:00 EDT, Height/Length Dosing, 93.7, kg, 09... Documented Medications Documented Fish Oil: 500 mg, Oral, Daily, Refill(s) 0, Prophylaxis Multivitamins and Minerals: 1 tab, Oral, Daily, Refill(s) 0, Prophylaxis Rybelsus 7 mg oral tablet: 90 EA, TAKE 1 TAB AT LEAST 30MIN. BEFORE FIRST FOOD, DRINK, OR OTHER ORAL MEDS OF THE DAY, Refills(s) 0, Blood glucose Taltz Autoinjector: 80 mg, SubCutaneous, q4wk, Refills(s) 0, Other (see comment) Vitamin B6 100 mg Tab: 100 mg = 1 tab(s), Oral, Daily, Prophylaxis latanoprost Opth 0.005% Rosalina: 1 drop(s), OPTH, Once a day (at bedtime), Ocular congestion metformin 500 mg Tab: Refills(s) 0 paroxetine 10 mg Tab: 10 mg = 1 tab(s), Oral, Daily, Refills(s) 0, Depression, Medications (12) Active Scheduled: (5) bisacodyl 5 mg Oral EC Tab [F] 20 mg 4 tab(s), Oral, Once insulin glargine (Lantus) 100 units/mL SubQ Rosalina 10 mL [F] 15 unit(s) 0.15 mL, SubCutaneous, Daily insulin lispro (Humalog) 100 units/mL SubQ Inj [F] 0-10 Unit(s), SubCutaneous, QIDACHS latanoprost Opth 0.005% Rosalina [F] 1 drop(s), OPTH, Once a day (at bedtime) shaheen (more content not included)... Normal [facility] Comment on above: Result Comment: Elec tronically Signed By: PRISCA ACOSTA, Sean Michaud.ravin\Date and Time Signed: 04/29/23 12:47 EST ED Clinical Summaryon 2022 ED Clinical Summary (Inserted Image. Chrissy ble to display) [address] [address] ED Clinical Summary Person Information Name: JANICE SMYTH [facility] Age: 57 Years : 1965 Sex: Male Language: Yakut PCP: ANTONIO KITCHEN DO Marital Status: Visit Id: Visit Reason: Dizziness; Shortness of breath; Chest pain; CHEST PAIN Speciality: Acuity: 2 Enc Type: Observation Med Service: Emergency Arrival: 04/28/2023 20:35:17 Discharge: LOS: 000 02:56 Checkin: 04/28/2023 20:35:17 Checkout: 04/28/2023 23:31:43 Dispo Type: Admitted as IP to this [facility] EVENTS: Event Name Event Status Request Date/Time Start Date/Time Complete Date/Time Arrive Complete 04/28/2023 20:35:17 04/28/2023 20:35:17 04/28/2023 20:35:17 Document Home Meds Request 04/28/2023 20:35:17 Triage Complete 04/28/2023 20:35:17 04/28/2023 20:47:38 04/28/2023 20:47:38 Bed Assign Complete 04/28/2023 20:35:17 04/28/2023 20:35:17 04/28/2023 20:35:17 Dr Exam Complete 04/28/2023 20:35:17 04/28/2023 20:38:56 04/28/2023 20:38:56 RN Exam Complete 04/28/2023 20:35:17 04/28/2023 21:09:03 04/28/2023 21:09:03 Registration Start 04/28/2023 20:38:56 04/28/2023 23:31:43 EKG Complete 04/28/2023 20:39:09 04/28/2023 20:40:25 EKG Cancel 04/28/2023 20:43:38 04/28/2023 21:18:25 Pending Labs Request 04/28/2023 20:43:38 Lab Complete 04/28/2023 20:43:38 04/28/2023 21:12:59 Patient Care Request 04/28/2023 20:43:38 RT Request 04/28/2023 20:43:38 X-Ray Complete 04/28/2023 20:43:38 04/28/2023 21:05:14 04/28/2023 21:14:05 Pending Labs Complete 04/28/2023 20:58:28 04/28/2023 20:58:28 04/28/2023 21:13:00 Lab Complete 04/28/2023 20:58:28 04/28/2023 20:58:28 04/28/2023 21:13:00 Pending Labs Complete 04/28/2023 21:05:19 04/28/2023 21:05:19 04/28/2023 21:05:25 Lab Complete 04/28/2023 21:05:19 04/28/2023 21:05:19 04/28/2023 21:05:25 Dr Exam Complete 04/28/2023 21:05:52 04/28/2023 21:05:52 04/28/2023 21:05:52 CT Complete 04/28/2023 21:09:27 04/28/2023 21:24:50 04/28/2023 21:54:28 Meds Admin Request 04/28/2023 21:09:27 Wet Read Request 04/28/2023 21:14:05 Pending Labs Complete 04/28/2023 22:26:18 04/28/2023 22:26:18 04/28/2023 22:26:18 Pending Labs Request 04/28/2023 22:40:25 Lab Request 04/28/2023 22:40:25 Urine Collect Request 04/28/2023 22:40:25 Consult Request 04/28/2023 22:48:23 Bed Request Request 04/28/2023 23:04:01 Reg Bed Request Request 04/28/2023 23:04:01 Admit Request 04/28/2023 23:04:01 Consult Request 04/28/2023 23:04:56 Hospitalist Consult Request 04/28/2023 23:04:56 Patient Care Request 04/28/2023 23:09:19 Patient Care Request 04/28/2023 23:09:19 Patient Care Request 04/28/2023 23:09:19 Patient Care Request 04/28/2023 23:09:20 Pending Labs Complete 04/28/2023 23:30:25 04/28/2023 23:30:25 04/28/2023 23:30:25 ADDRESS: [address] [place] [id number] [facility] DOC NOTES: MEDICAL INFORMATION: Prescriptions Given: Medications to Continue with No Changes Other Medications atorvastatin (atorvastatin 80 mg Tab) 1 Tablets By Mouth every day. Refills: 3. ixekizumab (Taltz Autoinjector) 80 Milligram Subcutaneous every 4 weeks. latanoprost ophthalmic (latanoprost Opth 0.005% Rosalina) 1 Drops Ophthalmic once a day (at bedtime). losartan (losartan 100 mg Tab) 1 Tablets By Mouth every day. Refills: 2. metformin (metformin 500 mg Tab) multivitamin with minerals (Multivitamins and Minerals) 1 tab By Mouth every day. nitroglycerin (nitroglycerin 0.4 mg sublingual Tab) 1 Tablets Sublingual every 5 minutes as needed Chest pain. not to exceed 3 doses/15 min--if pain persists, seek medical attention. Refills: 0. omega-3 polyunsaturated fatty acids (Fish Oil) 500 Milligram By Mouth every day. paroxetine (paroxetine 10 mg Tab) 1 Tablets By Mouth every day. pyridoxine (Vitamin B6 100 mg Tab) 1 Tablets By Mouth every day. semaglutide (Rybelsus 7 mg oral tablet) 90 EA, TAKE 1 TAB AT LEAST 30MIN. BEFORE FIRST FOOD, DRINK, OR OTHER ORAL MEDS OF THE DAY. PATIENT EDUCATION INFORMATION: Instructions: Follow up: DIAGNOSIS: Chest pain; Perinephric hematoma; Retroperitoneal hematoma Normal [facility] ED Note-Physicianon 04-29-20 ED Note-Physician Basic Information Time Seen: Doug Tafoya DO 04/28/2023 20:38 Chief Complaint Pt. came here d/t chest pain moves to both shoulder and back, SOB that started today. Pt got Sx ysterday by Dr. cope at [facility], after being deischarge he felt lightheaded and dizzy the whole night. Hx of NC 2019, got stent put in. Got 1 nitro History of Present Illness Patient is a 57-year-old male with a history of NC with stent placed in 2019, HTN, hyperlipidemia, T2DM, psoriatic arthritis presenting to the ED for evaluation of chest pain and shortness of breath. Patient reports his chest pain started this afternoon and describes the pain as constant, dull and a 2 out of 10 in severity. He does report some occasional sharp pains as well. The pain is located midsternal with radiates to the left shoulder and wraps around to contralateral trapezius. Patient did have a lithotripsy yesterday with Dr. Cope (at [facility]) and since that procedure, he endorses some lightheadedness, nausea, hematuria, and RLQ pain. Patient did state he have a large amount of pain after the procedure and received several doses of pain medication which she attributed the dizziness to. He also had chills which started this morning and constipation with last BM being on Monday. Denies any coughing, wheezing, vomiting. Patient reports that he has not been on blood thinners for the last month. Review of Systems A 10 point review of systems is negative except as noted above. Physical Exam Vitals & Measurements T: 37.2 ?C(Oral) HR: 98(Peripheral) RR: 19 BP: 151/79 SpO2: 94% HT: 185 cm WT: 97 kg BMI: 28.34 General: Well developed, non toxic appearing, no acute distress HEENT: Head atraumatic, Mucosa moist, hearing grossly normal Neck: No JVD, tracheal deviation Cardiac: Regular rate, rhythm, no murmurs, or gallops, 2+ radial pulses Respiratory: Lungs clear to auscultation B/L, normal respiratory effort Abdomen: Soft palpation to the right lower quadrant with guarding, no peritoneal signs Extremities: No edema noted in the LE B/L, no tenderness to palpation Neurologic: Alert and oriented, speech clear Skin: No rashes or lesions Psych: Appropriate mood and behavior Medical Decision Making MEDICAL DECISION MAKING Number and Complexity of Problems Differential Diagnosis: [] [facility] Data External documents reviewed: [] My EKG interpretation: [] My CT interpretation: [] My X-ray interpretation: [] My Ultrasound interpretation: [] Decision rules/scores evaluated: [] Discussed with: [] Treatment and Disposition ED Course: Patient is a 57-year-old male presenting to the ED for evaluation of abdominal pain, chest pain, dizziness. Patient's nontoxic and on arrival, no acute distress. EKG without any significant changes. Patient does have significant right lower quadrant tenderness on examination. Laboratory evaluation of is obtained which shows anemia with a hemoglobin of 8.2 on review patient's baseline is around 12 with most recent hemoglobin in February of this year. Patient also has a slight bump in his creatinine with a creatinine of 1.5. Glucose is elevated at 347. Due to his complaints is given morphine, Zofran, IV fluids. CT of the chest is ordered to evaluate for underlying PE or intrathoracic pathology and CT ab pelvis is ordered to eval for intra-abdominal pathology. Patient CT abdomen pelvis shows crescentic nearly circumferential hyperdense collection surrounding the right kidney measuring up to 3.2 cm in diameter consideration is a perinephric retroperitoneal hematoma with a component of subcapsular hemorrhagic products there is also diffuse retroperitoneal hemorrhage products throughout the abdomen and pelvis with no active extravasation noted on the portal venous phase. Patient's not on anticoagulation. I discussed the case with Dr. Cope of urology who did the patient's procedure who reviewed the imaging and recommends every 6 hour H&H's and serial abdominal exams. He does state that the patient can stay here. He will see the patient in consult tomorrow. I discussed this plan with the patient who is in agreement. I discussed the case with the hospitalist up the patient for admission. Shared decision making: [] Code status: [] Assessment/Plan Chest pain (R07.9: Chest pain, unspecified) Perinephric hematoma (S37.019A: Minor contusion of unspecified kidney, initial encounter) Retroperitoneal hematoma (K68.3: Retroperitoneal hematoma) Orders: morphine, 4 mg = 1 mL, Injection, IV Push, Once, Stop date 04/28/23 21:08:00 EST, STAT, Start date 04/28/23 21:08:00 EST, 04/28/23 21:08:00 EST ondansetron, 4 mg = 2 mL, Injection, IV Push, Once, Stop date 04/28/23 21:09:00 EST, STAT, Start date 04/28/23 21:09:00 EST, 04/28/23 21:09:00 EST Sodium Chloride 0.9% intravenous solution 1,000 mL, 1,000 mL, IV, 983.61 mL/hr, for 30 day(s), Stop date 05/28/23 21:07:00 EST, STAT, Start date 04/28/23 21:08:00 EST, 61 minute(s), (more content not included)... [facility] Comment on above: Result Comment: Elec tronically Signed By: Doug Tafoya DO\.br\Date and Time Signed: 04/28/23 23:07 EST ED Patient Education Noteon 04-29-2023 ED Patient Education Note Normal [facility] ED Patient Summaryon 023 ED Patient Summary [place] [id number] Patient Discharge Instructions Person Information Name: JANICE SMYTH Age: 57 Years Arrival Date: 04/28/2023 20:35:17 Discharge Diagnosis: Chest pain; Perinephric hematoma; Retroperitoneal hematoma Primary Care Physician: ANTONIO KITCHEN DO Provider Information Primary Provider: Doug Tafoya DO [employer] Consultant:None The exam and treatment you received in the Emergency Department were for an urgent problem and are not intended as complete care. It is important that you follow up with a doctor, nurse practitioner, or physician?s assistant public defender for ongoing care. If your symptoms become worse or you do not improve as expected and you are unable to reach your usual health care provider, you should return to the Emergency Department. We are available 24 hours a day. JANICE SMYTH has been given the following list of patient education materials, prescriptions and follow-up instructions: Follow-up Instructions: In the event that this physician does not participate in your insurance network, please consult with your insurance company to find a nearby participating provider. Patient Education Materials: A MESSAGE TO ALL PATIENTS REGARDING OPIOIDS PRESCRIPTION OPIOIDS: WHAT YOU NEED TO KNOW Prescription opioids can be used to help relieve qauvktev-tz-kjfgbs pain and are often prescribed following a surgery or injury, or for certain health conditions. These medications can be an important part of the treatment but also come with serious risks. It is important to work with your healthcare provider to make sure you are getting the safest, most effective care. WHAT ARE THE RISKS AND SIDE EFFECTS OF OPIOID USE? Prescription opioids carry serious risks of addiction and overdose, especially with prolonged use. An opioid overdose, often marked by slowed breathing, can cause sudden . The use of prescription opioids can have a number of side effects as well, even when taken as directed: ? Tolerance?meaning you might need to take more of the medication for the same pain relief ? Physical dependence?meaning you have symptoms of withdrawal when a medication is stopped ? Increased sensitivity to pain ? Constipation ? Nausea, vomiting, and dry mouth ? Sleepiness and dizziness ? Confusion ? Depression ? Low levels of testosterone that can result in lower sex drive, energy, and strength ? Itching and sweating RISKS ARE GREATER WITH: ? History of drug misuse, substance use disorder, or overdose ? Mental health conditions (such as depression or anxiety) ? Sleep apnea ? Older age (65 years and older) ? Avoid alcohol while taking prescription opioids. Also, unless specifically advised by your health care provider, medications to avoid include: ? Benzodiazepines (such as Xanax or Valium) ? Muscle relaxants (such as Soma or Flexeril) ? Hypnotics (such as Ambien or Lunesta) ? Other prescription opioids KNOW YOUR OPTIONS Talk to your health care provider about ways to manage your pain that don?t involve prescription opioids. Some of these options may actually work better and have fewer risks and side effects. Options may include: ? Pain relievers such as acetaminophen, ibuprofen, and naproxen ? Some medication that are also used for depression or seizures ? Physical therapy and exercise ? Cognitive behavioral therapy, a psychological, goal-directed approach, in which patients learn how to modify physical, behavioral, and emotional triggers of pain and stress. IF YOU ARE PRESCRIBED OPIOIDS FOR PAIN: ? Never take opioids in greater amounts or more often than prescribed. ? Follow up with your primary health care provider. o Work together to create a plan on how to manage your pain. o Talk about ways to help manage your pain that don?t involve prescription opioids. o Talk about any and all concerns and side effects. ? Help prevent misuse and abuse o Never sell or share prescription opioids. o Never use another person?s prescription opioids. ? Store prescription opioids in a secure place and out of reach of others (this may include visitors, children, friends, and family). ? Safely dispose of unused prescription opioids: Find your community drug take-back program or your pharmacy mail-back program, or flush them down the toilet, following guidance from the Food and Drug Administration (www.fda.gov/Drugs/ResourcesForYou). ? Visit www.cdc.gov/drugoverdose to learn about the risks of opioids abuse and overdose. ? If you believe you may be struggling with addiction, tell your health career counselor and ask for guidance or call [facility] National Helpline at 4-508-453-NIUE. v Source: [place] Department of Health and Human Services/Center for Disease Control & Prevention Citizen Of [facility] Medications Giv (more content not included)... [facility] EMS Documentationon 04-29-20 EMS Documentation Please click on link to see report [facility] Comment on above: Result Comment: Miss bullard Attachment - total size limit for all attachments exceeded [email or web address] Can be viewed in source system Epoxy Education Videoon Epoxy Education Video Yes Patient Avoiding Infections in the Hospital Normal [facility] HEMATOLOGYOrdered By: SYSTEM SYSTEM on 04-29-2023 Basophils/100 WBC (Bld) 0.5 % Normal 0.0 - 2.0 % [facility] HemeAutoSS Basophils/Leukocytes Auto (B ld) [Pure # fraction] 0.0 E9/L Normal 0.0 - 0.2 E9/L [facility] Eosinophils/100 WBC (Bld) 1.0 % Normal 0.0 - 8.0 % [facility]eAuto[facility] Eosinophils/Leukocytes Auto (Bld) [Pure # fraction] 0.1 E9/L Normal 0.0 - 0.5 E9/L [facility] HemeAutoS S Lymphocytes/100 WBC (Bld) 31.6 % Normal 14.0 - 50. 0 % [facility]eAutoSS Lymphocytes/Leukocytes Auto (Bld) [Pure # fraction] 1.9 E9/L Normal 1.0 - 4.0 E9/L [facility] S Monocytes/100 WBC (Bld) 9.5 % Normal 4.0 - 14.0 % [facility]eAuto[facility] Monocytes/Leukocytes Auto (B ld) [Pure # fraction] 0.6 E9/L Normal 0.2 - 1.0 E9/L [facility] Neutrophils/100 WBC (Bld) 57.4 % Normal 36.0 - 75. 0 % [facility]eAuto[facility] Neutrophils/Leukocytes Auto (Bld) [Pure # fraction] 3.5 E9/L Normal 2.0 - 7.5 E9/L [facility] Heme[facility]S S HEMATOLOGYOrdered By: Christa Calhoun on 04-29-2023 Erythrocyte distribution wid th (RBC) [Ratio] 14.0 % Normal 10.9 - 14.2 % [facility] MCH (RBC) [Entitic mass] 28.3 pg Normal 27.0 - 34.0 pg [facility] MCHC (RBC) [Mass/Vol] 34.3 g/dL Normal 31.4 - 36.0 gm /dL [facility] MCV (RBC) [Entitic vol] 82.4 fL Normal 80.0 - 100.0 fL [facility] Platelet mean volume (Bld) [Entitic vol] 8.7 fL Normal 6.4 - 10.8 fL [facility]eAuto[facility] Platelets (Bld) [#/Vol] 147.0 E9/L Low 150.0 - 500. 0 E9/L [facility]eAuto[facility] RBC (Bld) [#/Vol] 2.7 E12/L Low 4.3 - 5.9 E12/L [facility] HemeAutoSS WBC corrected for nucl RBC A uto (Bld) [#/Vol] 6.0 E9/L Normal 4.0 - 11.0 E9/L [facility] [facility] HemeAutoSS Hct & Hgbon 04-29-2023 Hematocrit (Bld) [Volume fraction] 21.1 % Low 3 7.7-49.0 [facility] Comment on above: Performed By: #### 1 [id number] #### [facility] [address] [place] [address] Hemoglobin (Bld) [Mass/Vol] 7.3 g/dL Low 13.5-17. 5 [facility] Comment on above: Performed By: #### 1 [id number] #### [facility] [address] [place] [address] Hematocrit (Bld) [Volume fraction] 21.2 % Low 3 7.7-49.0 [facility] Comment on above: Performed By: #### 1 [id number] ####[facility] [address] [place] [address] Hemoglobin (Bld) [Mass/Vol] 7.4 g/dL Low 13.5-17. 5 [facility] Comment on above: Performed By: #### 1 [id number] ####[facility] [address] [place] [address] Hematocrit (Bld) [Volume fraction] 22.3 % Low 3 7.7-49.0 [facility] Comment on above: Performed By: #### 2 [id number] #### [facility] [address] [place] [address] Hemoglobin (Bld) [Mass/Vol] 7.7 g/dL Low 13.5-17. 5 [facility] Comment on above: Performed By: #### 2 [id number] #### [facility] [address] [place] [address] [id number] 04-29-2023 HbA1c (Bld) [Mass fraction] 8.2 % High <=5.9 [facility] Comment on above: Order Comment: Order placed by EKM rule. [email or web address][facility] Performed By: #### 7 [id number] #### [facility] [address] [place] [address] Interdisciplinary Note - Mauricio e Manageron 04-29-2023 Interdisciplinary Note - Mauricio e Im[employer] CRM to room to discuss DC Planning. Patient is awake, alert and oriented. Patient is from home with his spouse, she will transport at DC. Patient verified PCP, home DME and insurance. Patient on 04/27 had a Right ESWL came back in 04/28 with a retroperitoneal Hematoma. Patient is assigned to [employer], see notes. Patient has urology consult. Patient denied any DC need from CRM for HH, DME and PM. Patient was provided CRM contact, white board updated. Anticipated DC TBD. CRM following Normal [facility] Comment on above: Result Comment: Elec tronically Signed By: Sarah Choi\.br\Date and Time Signed: 04/29/23 14:02 EST Magnesiumon 04-29-2023 Magnesium [Mass/Vol] 1.5 mg/dL Normal 1.3-2.4 [facility] Comment on above: Performed By: #### 1 [id number] #### [facility] [address] [place] [address] Monitor Recordon 04-29-2023 Monitor Record [id number]#1.00TIFF Normal [facility] Monitor Record [id number]#1.00TIFF Normal [facility] Monitor Record [id number]#1.00TIFF Normal [facility] RAD - Preliminary Cat Scan R eporton 04-29-2023 RAD - Preliminary Cat Scan Report [id number]#1.00TIFF Normal [facility] RAD - Preliminary Cat Scan Report [id number]#1.00TIFF Normal [facility] Comment on above: Other Comment: stat rad read it wrong RCOon 04-29-2023 # of Units 1 Invalid Interpretation Code [facility] Comment on above: Performed By: #### 1 [id number] #### [facility] [address] [place] [address] Date Required 20230429 Invalid Interpretation Code [facility] Comment on above: Performed By: #### 1 [id number] #### [facility] [address] [place] [address] Order to Transfuse Yes Normal [facility] Comment on above: Performed By: #### 1 [id number] #### [facility] [address] [place] [address] Product Type None Required Invalid Interpretation Code [facility] Comment on above: Performed By: #### 1 [id number] #### [facility] [address] [place] [address] # of Units 2 Invalid Interpretation Code [facility] Comment on above: Performed By: #### 1 [id number] #### [facility] [address] [place] [address] Date Required 20230429 Invalid Interpretation Code [facility] Comment on above: Performed By: #### 1 [id number] #### [facility] [address] [place] [address] Order to Transfuse Yes Normal [facility] Comment on above: Performed By: #### 1 [id number] #### [facility] [address] [place] [address] Product Type None Required Invalid Interpretation Code [facility] Comment on above: Performed By: #### 1 [id number] #### [facility] [address] [place] [address] Troponin 3 Hr.on 04-29-2023 Troponin I.cardiac [Mass/Vol] 21.10 pg/mL Normal 15.90 -38.40 [facility] Comment on above: Result Comment: The 95% CI (Confidence Interval) PPV (Positive Predictive Value) for myocardial infarction in females is 38 pg/mL, in males 51 pg/mL. The results should be used in conjunction with clinical conditions of myocardial infarction. (Access High Sensitivity Troponin I Instructions For Use, [place], December 2017) Performed By: #### 1 [id number] ####[facility] [address] [place] [address] Troponin 6 Hr.on 04-29-2023 Troponin I.cardiac [Mass/Vol] 22.70 pg/mL Normal 15.90 -38.40 [facility] Comment on above: Result Comment: The 95% CI (Confidence Interval) PPV (Positive Predictive Value) for myocardial infarction in females is 38 pg/mL, in males 51 pg/mL. The results should be used in conjunction with clinical conditions of myocardial infarction. ([employer] High Sensitivity Troponin I Instructions For Use, [place], December 2017) Performed By: #### 1 [id number] #### [facility] [address] [place] [address] Troponin 9 Hr.on 04-29-2023 Troponin I.cardiac [Mass/Vol] 29.60 pg/mL Normal 15.90 -38.40 [facility] Comment on above: Result Comment: The 95% CI (Confidence Interval) PPV (Positive Predictive Value) for myocardial infarction in females is 38 pg/mL, in males 51 pg/mL. The results should be used in conjunction with clinical conditions of myocardial infarction. ([employer] [place] High Sensitivity Troponin I Instructions For Use, [place], December 2017) Performed By: #### 1 [id number] #### [facility] [address] [place] [address] XR Chest Single Viewon 04-29 XR Chest Single View Exam Date/Time: 04/28/2023 21:14 EST Reason for Exam: Chest pain Report IMPRESSION: No acute findings, within limits of shallow inspiration. EXAMINATION: XR Chest Single View Clinical History: Chest pain Comparison: 01/16/2023. RESULT: Shallow inspiration. Elevation right hemidiaphragm, unchanged. No focal consolidation. No large pleural effusion. No pneumothorax. Stable cardiomediastinal silhouette. No acute osseous findings. Ordering Provider: Doug Tafoya FINAL REPORT Dictated: 04/29/2023 9:08 am Josh Land MD Signed (Electronic Signature): 04/29/2023 9:08 am Signed by: Josh Land MD Transcribed by: NATALIE Technologist: MARYLIN Technical Comments Radiation Dose: Ka,r in mGy = na DAP = na Normal [facility] eGFRon 04-29-2023 GFR/1.73 sq M.predicted elvin g non-blacks MDRD (S/P/Bld) [Vol rate/Area] 70 mL/min/1.73 m2 Normal >=59 [facility] Comment on above: Order Comment: Order added by Discern Expert. Result Comment: Technology Support Analyst juliana kidney disease could be indicated at eGFR's of less than 60 mL/min/1.73m2. Kidney failure is indicated at less than 15 mL/min/1.73m2. Performed By: #### 1 [id number] #### [facility] [address] [place] [address] GFR/1.73 sq M.predicted elvin g non-blacks MDRD (S/P/Bld) [Vol rate/Area] 70 mL/min/1.73 m2 Normal >=59 [facility] Comment on above: Order Comment: Order added by Discern Expert. Result Comment: Technology Support Analyst juliana kidney disease could be indicated at eGFR's of less than 60 mL/min/1.73m2. Kidney failure is indicated at less than 15 mL/min/1.73m2. Performed By: #### 1 [id number] #### [facility] [address] [place] [address] Auto Diffon 04-28-2023 Basophils/100 WBC (Bld) 0.4 % Normal 0.0-2.0 [facility] Comment on above: Order Comment: Order Added by Discern Expert. Performed By: #### 2 [id number] #### [facility] [address] [place] [address] Basophils/Leukocytes Auto (B ld) [Pure # fraction] 0.0 E9/L Normal 0.0-0.2 [facility] Comment on above: Order Comment: Order Added by Discern Expert. Performed By: #### 2 [id number] #### [facility] [address] [place] [address] Eosinophils/100 WBC (Bld) 0.6 % Normal 0.0-8.0 [facility] Comment on above: Order Comment: Order Added by Discern Expert. Performed By: #### 2 [id number] #### [facility] [address] [place] [address] Eosinophils/Leukocytes Auto (Bld) [Pure # fraction] 0.0 E9/L Normal 0.0-0.5 [facility] Comment on above: Order Comment: Order Added by Discern Expert. Performed By: #### 2 [id number] #### [facility] [address] [place] [address] Lymphocytes/100 WBC (Bld) 22.8 % Normal 14.0-50.0 [facility] Comment on above: Order Comment: Order Added by Discern Expert. Performed By: #### 2 [id number] #### [facility] [address] [place] [address] Lymphocytes/Leukocytes Auto (Bld) [Pure # fraction] 1.6 E9/L Normal 1.0-4.0 [facility] Comment on above: Order Comment: Order Added by Discern Expert. Performed By: #### 2 [id number] #### [facility] [address] [place] [address] Monocytes/100 WBC (Bld) 8.2 % Normal 4.0-14.0 [facility] Comment on above: Order Comment: Order Added by Discern Expert. Performed By: #### 2 [id number] #### [facility] [address] [place] [address] Monocytes/Leukocytes Auto (B ld) [Pure # fraction] 0.6 E9/L Normal 0.2-1.0 [facility] Comment on above: Order Comment: Order Added by Discern Expert. Performed By: #### 2 [id number] #### [facility] [address] [place] [address] Neutrophils/100 WBC (Bld) 68.0 % Normal 36.0-75.0 [facility] Comment on above: Order Comment: Order Added by Discern Expert. Performed By: #### 2 [id number] #### [facility] [address] [place] [address] Neutrophils/Leukocytes Auto (Bld) [Pure # fraction] 4.7 E9/L Normal 2.0-7.5 [facility] Comment on above: Order Comment: Order Added by Discern Expert. Performed By: #### 2 [id number] #### [facility] [address] [place] [address] BMPon 04-28-2023 Creatinine [Mass/Vol] 1.5 mg/dL High 0.5-1.3 [facility] Comment on above: Performed By: #### 2 [id number] #### [facility] [address] [place] [address] Urea nitrogen [Mass/Vol] 24 mg/dL High 5-21 [facility] Comment on above: Performed By: #### 2 [id number] #### [facility] [address] [place] [address] Urea nitrogen/Creatinine [Ma ss ratio] 16 No Units Normal 10-20 [facility] Comment on above: Performed By: #### 2 [id number] #### [facility] [address] [place] [address] Anion gap [Moles/Vol] 13 mmol/L Normal 6-16 [facility] Comment on above: Performed By: #### 2 [id number] #### [facility] [address] [place] [address] Calcium [Mass/Vol] 9.0 mg/dL Normal 8.9-11.1 [facility] Comment on above: Performed By: #### 2 [id number] #### [facility] [address] [place] [address] Chloride [Moles/Vol] 99 mmol/L Low 101-111 [facility] Comment on above: Performed By: #### 2 [id number] #### [facility] [address] [place] [address] CO2 [Moles/Vol] 26 mmol/L Normal 21-31 [facility] Comment on above: Performed By: #### 2 [id number] #### [facility] [address] [place] [address] Glucose [Mass/Vol] 347 mg/dL High 55-199 [facility] Comment on above: Result Comment: If t his glucose result represents a fasting glucose, interpretation should refer to the following reference range: 55-99 mg/dL Performed By: #### 2 [id number] #### [facility] [address] [place] [address] Potassium [Moles/Vol] 4.0 mmol/L Normal 3.5-5.3 [facility] Comment on above: Performed By: #### 2 [id number] #### [facility] [address] [place] [address] Sodium [Moles/Vol] 134 mmol/L Low 135-145 [facility] Comment on above: Performed By: #### 2 [id number] #### [facility] [address] [place] [address] CBC w/ Auto Diffon 3 Erythrocyte distribution wid th (RBC) [Ratio] 14.0 % Normal 10.9-14.2 [facility] Comment on above: Performed By: #### 2 [id number] #### [facility] [address] [place] [address] Hematocrit (Bld) [Volume fraction] 23.7 % Low 3 7.7-49.0 [facility] Comment on above: Performed By: #### 2 [id number] #### [facility] [address] [place] [address] Hemoglobin (Bld) [Mass/Vol] 8.2 g/dL Low 13.5-17. 5 [facility] Comment on above: Performed By: #### 2 [id number] #### [facility] [address] [place] [address] MCH (RBC) [Entitic mass] 28.3 pg Normal 27.0-34.0 [facility] Comment on above: Performed By: #### 2 [id number] #### [facility] [address] [place] [address] MCHC (RBC) [Mass/Vol] 34.6 g/dL Normal 31.4-36.0 [facility] Comment on above: Performed By: #### 2 [id number] #### [facility] [address] [place] [address] MCV (RBC) [Entitic vol] 81.7 fL Normal 80.0-100.0 [facility] Comment on above: Performed By: #### 2 [id number] #### [facility] [address] [place] [address] Platelet mean volume (Bld) [Entitic vol] 8.0 fL Normal 6.4-10.8 [facility] Comment on above: Performed By: #### 2 [id number] #### [facility] [address] [place] [address] Platelets (Bld) [#/Vol] 163.0 E9/L Normal 150.0-500.0 [facility] Comment on above: Performed By: #### 2 [id number] #### [facility] [address] [place] [address] RBC (Bld) [#/Vol] 2.9 E12/L Low 4.3-5.9 [facility] Comment on above: Performed By: #### 2 [id number] #### [facility] [address] [place] [address] WBC corrected for nucl RBC A uto (Bld) [#/Vol] 6.9 E9/L Normal 4.0-11.0 [facility] Comment on above: Performed By: #### 2 [id number] #### [facility] [address] [place] [address] COAGULATIONOrdered By: Odilon Langley on 04-28-2023 aPTT Coag (PPP) [Time] 26.0 s Normal 25.1 - 36.5 s econd(s) [facility] Comment on above: Interpretive Data: Tyrone sandipnita 15 days - 4 weeks 1 - 5 months 6 - 11 months 1 - 5 years 6 - 10 years 11 - 17 years PTT Mean: 35.4 (27.6-45.6) Mean: 33.5 (24.8-40.7) Mean: 32.4 (25.1-40.7) Mean: 31.6 (24.0-39.2) Mean: 31.6 (26.9-38.7) Mean: 31.0 (24.6-38.4) Pediatric Reference ranges were obtained from a study by minna Lyon prepared from 1437 samples obtained at 7 different centers using the same coagulation reagent and instrumentation as [facility]. Currently there are no coagulation studies available worldwide for children to 14 days, and no normal ranges. Heparin therapeutic range (represented by Anti-Factor Xa activity of 0.2 - 0.4 U/mL) corresponds to PTT of 56.6 - 109.0 sec. INR Coag (PPP) [Relative time] 1.0 {INR} Invalid Interpre tation Code [facility] Comment on above: Interpretive Data: I NR results are specifically intended to assess patients stabilized on long-term Anticoagulation therapy suggested INR s Less Intensive Anticoagulation 2.0 3.0 Conventional Range 3.0 4.5 PT Coag (PPP) [Time] 11.5 s Normal 9.4 - 12.5 seco nd(s) [facility] Comment on above: Interpretive Data: 1 5 days - 4 weeks 1 - 5 months 6 -11 months 1 5 years 6 10 years 11 -17 years Mean: 11.2 (9.5 12.6) Mean: 11.0 (9.7 12.8) Mean: 11.0 (9.8 13.0) Mean: 11.3 (9.9 13.4) Mean: 11.7 (10.0 14.6) Mean: 11.8 (10.0 - 14.1) Pediatric Reference ranges were obtained from a study by minna Lyon prepared from 1437 samples obtained at 7 different centers using the same coagulation reagent and instrumentation as [facility]. Currently there are no coagulation studies available worldwide for children to 14 days, and no normal ranges. Consent for Treatmenton Consent for Treatment [id number]#1.00TIFF Normal [facility] HEMATOLOGYOrdered By: SYSTEM SYSTEM on 04-28-2023 Basophils/100 WBC (Bld) 0.4 % Normal 0.0 - 2.0 % [facility] Basophils/Leukocytes Auto (B ld) [Pure # fraction] 0.0 E9/L Normal 0.0 - 0.2 E9/L [facility] Eosinophils/100 WBC (Bld) 0.6 % Normal 0.0 - 8.0 % [facility] Eosinophils/Leukocytes Auto (Bld) [Pure # fraction] 0.0 E9/L Normal 0.0 - 0.5 E9/L [facility] HemeAuto[facility] S Lymphocytes/100 WBC (Bld) 22.8 % Normal 14.0 - 50. 0 % [facility] Lymphocytes/Leukocytes Auto (Bld) [Pure # fraction] 1.6 E9/L Normal 1.0 - 4.0 E9/L [facility]eAuto[facility] S Monocytes/100 WBC (Bld) 8.2 % Normal 4.0 - 14.0 % [facility] Monocytes/Leukocytes Auto (B ld) [Pure # fraction] 0.6 E9/L Normal 0.2 - 1.0 E9/L [facility] Neutrophils/100 WBC (Bld) 68.0 % Normal 36.0 - 75. 0 % [facility] Neutrophils/Leukocytes Auto (Bld) [Pure # fraction] 4.7 E9/L Normal 2.0 - 7.5 E9/L [facility] HemeAutoS S HEMATOLOGYOrdered By: Jack Livingston on 04-28-2023 Erythrocyte distribution wid th (RBC) [Ratio] 14.0 % Normal 10.9 - 14.2 % [facility] MCH (RBC) [Entitic mass] 28.3 pg Normal 27.0 - 34.0 pg [facility] MCHC (RBC) [Mass/Vol] 34.6 g/dL Normal 31.4 - 36.0 gm /dL [facility] MCV (RBC) [Entitic vol] 81.7 fL Normal 80.0 - 100.0 fL [facility] Platelet mean volume (Bld) [Entitic vol] 8.0 fL Normal 6.4 - 10.8 fL [facility] Platelets (Bld) [#/Vol] 163.0 E9/L Normal 150.0 - 500. 0 E9/L [facility] RBC (Bld) [#/Vol] 2.9 E12/L Low 4.3 - 5.9 E12/L [facility] HemeAuto[facility] WBC corrected for nucl RBC A uto (Bld) [#/Vol] 6.9 E9/L Normal 4.0 - 11.0 E9/L [facility] PT & PTTon 04-28-2023 aPTT Coag (PPP) [Time] 26.0 second(s) Normal 25.1-36.5 [facility] Comment on above: Result Comment: Para meter 15 days - 4 weeks 1 - 5 months 6 - 11 months 1 - 5 years 6 - 10 years 11 - 17 years PTT Mean: 35.4 (27.6-45.6) Mean: 33.5 (24.8-40.7) Mean: 32.4 (25.1-40.7) Mean: 31.6 (24.0-39.2) Mean: 31.6 (26.9-38.7) Mean: 31.0 (24.6-38.4) Pediatric Reference ranges were obtained from a study by Alonso Alamo et al. prepared from 1437 samples obtained at 7 different centers using the same coagulation reagent and instrumentation as [facility]. Currently there are no coagulation studies available worldwide for children to 14 days, and no normal ranges. Heparin therapeutic range (represented by Anti-Factor Xa activity of 0.2 - 0.4 U/mL) corresponds to PTT of 56.6 - 109.0 sec. Performed By: #### 2 [id number] #### [facility] [address] [place] [address] INR Coag (PPP) [Relative time] 1.0 {INR} Invalid Interpretation Code [facility] Comment on above: Result Comment: INR results are specifically intended to assess patients stabilized on long-term Anticoagulation therapy suggested INR?s ?Less Intensive Anticoagulation? 2.0 ? 3.0 Conventional Range 3.0 ? 4.5 Performed By: #### 2 [id number] #### [facility] [address] [place] [address] PT Coag (PPP) [Time] 11.5 second(s) Normal 9.4-12.5 [facility] Comment on above: Result Comment: 15 d ays - 4 weeks 1 - 5 months 6 -11 months 1 ? 5 years 6 ? 10 years 11 -17 years Mean: 11.2 (9.5 ? 12.6) Mean: 11.0 (9.7 ? 12.8) Mean: 11.0 (9.8 ? 13.0) Mean: 11.3 (9.9 ? 13.4) Mean: 11.7 (10.0 ? 14.6) Mean: 11.8 (10.0 - 14.1) Pediatric Reference ranges were obtained from a study by Alonso Alamo et al. prepared from 1437 samples obtained at 7 different centers using the same coagulation reagent and instrumentation as [facility]. Currently there are no coagulation studies available worldwide for children to 14 days, and no normal ranges. Performed By: #### 2 [id number] #### [facility] [address] [place] [address] Pre-Arrival Noteon 3 Pre-Arrival Note Pre-Arrival Summary Name: , FARNAZ Current Date: 04/28/2023 20:38:23 EST Gender: Male Date of : Age: 57 Pre-Arrival Type: EMS ETA: 04/28/2023 20:56:00 EST Primary Care Physician: Presenting Problem: Chest pain, Shoulder and back pain Pre-Arrival User: Fabian Toussaint RN Referring Source: Location: [place] Completion Date/Time: 04/28/2023 20:27:00 [facility] Emergency Department Pre-Hospital Report Form Vital Signs: BP- 121/64, CR 103, RR-16, SP02-95 Room air Pre-Hospital Report: Treatment in Route: Nitro 1 tab SL, 1L IV Response to Treatment: Misc. Issues: Normal [facility] Troponin 0 Hr.on 04-28-2023 Troponin I.cardiac [Mass/Vol] 18.20 pg/mL Normal 15.90 -38.40 [facility] Comment on above: Result Comment: The 95% CI (Confidence Interval) PPV (Positive Predictive Value) for myocardial infarction in females is 38 pg/mL, in males 51 pg/mL. The results should be used in conjunction with clinical conditions of myocardial infarction. (Access High Sensitivity Troponin I Instructions For Use, [place], December 2017) Performed By: #### 7 [id number] #### [facility] [address] [place] [address] eGFRon 04-28-2023 GFR/1.73 sq M.predicted elvin g non-blacks MDRD (S/P/Bld) [Vol rate/Area] 53 mL/min/1.73 m2 Low >=59 [facility] Comment on above: Order Comment: Order added by Discern Expert. Result Comment: Technology Support Analyst juliana kidney disease could be indicated at eGFR's of less than 60 mL/min/1.73m2. Kidney failure is indicated at less than 15 mL/min/1.73m2. Performed By: #### 2 [id number] #### [facility] [address] [place] [address] Lab Reportson 04-27-2023 Lab Reports [id number]#1.00T IFF Normal [facility] Operative Reporton Operative Report [id number]#1.00TIFF Normal [facility] ECG 12-Leadon 04-14-2023 ECG 12-Lead [id number]#1.00TI FF Normal [facility] Lab Reportson 04-14-2023 Lab Reports [id number]#1.00T IFF Normal [facility] RAD - MISCon 04-14-2023 RAD - MISC [id number]#1.00TI FF [facility] Insurance Correspondenceon 1 06-07-2022 Insurance Correspondence [id number]#1.00TIFF Normal [facility] Consent for Procedure/Surger yon 03-28-2023 Consent for Procedure/Surgery [id number]#1.00TIFF [facility] Physician Referralon 023 Physician Referral [id number]#1.00TIFF [facility] Ambulatory Visit Summaryon 1 Ambulatory Visit Summary JANICE SMYTH :1965 Visit Date:03/27/2023 Ambulatory Visit Instructions Your Diagnosis Kidney stones BPH (benign prostatic hyperplasia) Aspirin long-term use Tests Performed Urnls Dip Stick Auto w/o Microscopy POC 22349 Your Care Team Attending Physician - Sean COPE MD Primary Care Physician - ANTONIO KITCHEN DO Referring Physician - ANTONIO KITCHEN DO This Is Your Medications List Contact prescribing physician if questions or concerns aspirin (aspirin 81 mg Oral EC Tab) atorvastatin (atorvastatin 80 mg Tab) ixekizumab (Taltz Autoinjector) latanoprost ophthalmic (latanoprost Opth 0.005% Rosalina) losartan (losartan 100 mg Tab) metformin (metformin 500 mg Tab) multivitamin with minerals (Multivitamins and Minerals) nitroglycerin (nitroglycerin 0.4 mg sublingual Tab) omega-3 polyunsaturated fatty acids (Fish Oil) paroxetine (paroxetine 10 mg Tab) pyridoxine (Vitamin B6 100 mg Tab) semaglutide (Rybelsus 7 mg oral tablet) Procedures Performed Total knee arthroplasty (02/07/2023), Cardiac catheterisation (02/24/2020), Coronary artery stent (12/26/2019), PCI - Percutaneous coronary intervention (12/26/2019), Excision of malignant skin tumor (01/03/2019), Cystoscopy (07/26/2018), Radiofrequency ablation (09/22/2017), Laser ablation of prostate (07/12/2017), Cystourethroscopy with dilation of urethral stricture (06/08/2017), Shoulder joint instability (2005), Fracture of hand (2003), Tonsillectomy (2001), ACL - Anterior cruciate ligament deficiency (1978), Femur (1973). Discharge Vitals Heart Rate (Peripheral) 71 Respiratory Rate 16 Blood Pressure 139/76 Height 185 cm Height 73 in Weight 89 kg Weight 195.8 lb BMI 26 What to do next You Need to Schedule the Following Appointments Follow Up with PRISCA ACOSTA, Sean Stovall, ALTA When: Comments: sched laser litho Where: [facility] [address], [place] [address] [phone] Medications What How Much When Why Instructions Unchanged aspirin (aspirin 81 mg Oral EC Tab) 1 Tablets By Mouth Every day Contact prescribing physician if questions or concerns Unchanged atorvastatin (atorvastatin 80 mg Tab) 1 Tablets By Mouth Every day Coronary artery disease Contact prescribing physician if questions or concerns Unchanged ixekizumab (Taltz Autoinjector) 80 Milligram Subcutaneous Every 4 weeks Contact prescribing physician if questions or concerns Unchanged latanoprost ophthalmic (latanoprost Opth 0.005% Rosalina) 1 Drops Ophthalmic Once a day (at bedtime) Contact prescribing physician if questions or concerns Unchanged losartan (losartan 100 mg Tab) 1 Tablets By Mouth Every day Contact prescribing physician if questions or concerns Unchanged metformin (metformin 500 mg Tab) Contact prescribing physician if questions or concerns Unchanged multivitamin with minerals (Multivitamins and Minerals) 1 tab By Mouth Every day Contact prescribing physician if questions or concerns Unchanged nitroglycerin (nitroglycerin 0.4 mg sublingual Tab) 1 Tablets Sublingual Every 5 minutes as needed for Chest pain not to exceed 3 doses/ 15 min--if pain persists, seek medical attention Contact prescribing physician if questions or concerns Unchanged omega-3 polyunsaturated fatty acids (Fish Oil) 500 Milligram By Mouth Every day Contact prescribing physician if questions or concerns Unchanged paroxetine (paroxetine 10 mg Tab) 1 Tablets By Mouth Every day Contact prescribing physician if questions or concerns Unchanged pyridoxine (Vitamin B6 100 mg Tab) 1 Tablets By Mouth Every day Contact prescribing physician if questions or concerns Unchanged semaglutide (Rybelsus 7 mg oral tablet) 90 EA, TAKE 1 TAB AT LEAST 30MIN. BEFORE FIRST FOOD, DRINK, OR OTHER ORAL MEDS OF THE DAY Contact prescribing physician if questions or concerns Test Results Urnls Dip Stick Auto w/o Microscopy POC [id number] (03/27/2023) Bilirubin Urine Dipstick - Negative Blood Urine Dipstick - Negative Glucose Urine Dipstick - Negative Ketones Urine Dipstick - Negative Leukocytes Urine Dipstick - Negative Nitrite Urine Dipstick - Negative Protein Urine Dipstick - 1+ (30 mg/dl) Specific [place] Urine Dipstick - 1.015 Urine Appearance Urine Dipstick - Clear Urine Color Urine Dipstick - Yellow Urobilinogen Urine Dipstick - Normal 0.2-1 EU/dl pH Urine Dipstick - 6 Allergies HYDROcodone (Itching) Problems Ongoing - Any problem that you are currently receiving treatment for. Anxiety Aspirin long-term use BPH (benign prostatic hyperplasia) Coronary artery disease Hypertensive disorder Kidney stones Long-term current use of anticoagulant Personal history of malignant melanoma of skin Plaque psoriasis Psoriatic arthritis ST elevation myocardial infarction involving left anterior descending coronary artery Type 2 diabetes mellitus Historical - Any problem that you are no longer receiving treatm (more content not included)... Normal [facility] Patient Educationon 03-27-20 23 Patient Education Urology Kidney Stones Kidney stones are rock-like masses that form inside of the kidneys. Kidneys are organs that make pee (urine). A kidney stone may move into other parts of the urinary tract, including: ? The tubes that connect the kidneys to the bladder (ureters). ? The bladder. ? The tube that carries urine out of the body (urethra). Kidney stones can cause very bad pain and can block the flow of pee. The stone usually leaves your body (passes) through your pee. You may need to have a doctor take out the stone. What are the causes? Kidney stones may be caused by: ? A condition in which certain glands make too much parathyroid hormone (primary hyperparathyroidism). ? A buildup of a type of crystals in the bladder made of a chemical called uric acid. The body makes uric acid when you eat certain foods. ? Narrowing (stricture) of one or both of the ureters. ? A kidney blockage that you were born with. ? Past surgery on the kidney or the ureters, such as gastric bypass surgery. What increases the risk? You are more likely to develop this condition if: ? You have had a kidney stone in the past. ? You have a family history of kidney stones. ? You do not drink enough water. ? You eat a diet that is high in protein, salt (sodium), or sugar. ? You are overweight or very overweight (obese). What are the signs or symptoms? Symptoms of a kidney stone may include: ? Pain in the side of the belly, right below the ribs (flank pain). Pain usually spreads (radiates) to the groin. ? Needing to pee often or right away (urgently). ? Pain when going pee (urinating). ? Blood in your pee (hematuria). ? Feeling like you may vomit (nauseous). ? Vomiting. ? Fever and chills. How is this treated? Treatment depends on the size, location, and makeup of the kidney stones. The stones will often pass out of the body through peeing. You may need to: ? Drink more fluid to help pass the stone. In some cases, you may be given fluids through an IV tube put into one of your veins at the hospital. ? Take medicine for pain. ? Make changes in your diet to help keep kidney stones from coming back. Sometimes, medical procedures are needed to remove a kidney stone. This may involve: ? A procedure to break up kidney stones using a beam of light (laser) or shock waves. ? Surgery to remove the kidney stones. Follow these instructions at home: Medicines ? Take agtq-iug-xlnfptt and prescription medicines only as told by your doctor. ? Ask your doctor if the medicine prescribed to you requires you to avoid driving or using heavy machinery. Eating and drinking ? Drink enough fluid to keep your pee pale yellow. You may be told to drink at least 8?10 glasses of water each day. This will help you pass the stone. ? If told by your doctor, change your diet. This may include: ? Limiting how much salt you eat. ? Eating more fruits and vegetables. ? Limiting how much meat, poultry, fish, and eggs you eat. ? Follow instructions from your doctor about eating or drinking restrictions. General instructions ? Collect pee samples as told by your doctor. You may need to collect a pee sample: ? 24 hours after a stone comes out. ? 8?12 weeks after a stone comes out, and every 6?12 months after that. ? Strain your pee every time you pee (urinate), for as long as told. Use the strainer that your doctor recommends. ? Do not throw out the stone. Keep it so that it can be tested by your doctor. ? Keep all follow-up visits as told by your doctor. This is important. You may need follow-up tests. How is this prevented? To prevent another kidney stone: ? Drink enough fluid to keep your pee pale yellow. This is the best way to prevent kidney stones. ? Eat healthy foods. ? Avoid certain foods as told by your doctor. You may be told to eat less protein. ? Stay at a healthy weight. Where to find more information ? National Kidney Foundation (NKF): www.kidney.org ? [employer] (UCF): www.urologyhealth.org Contact a doctor if: ? You have pain that gets worse or does not get better with medicine. Get help right away if: ? You have a fever or chills. ? You get very bad pain. ? You get new pain in your belly (abdomen). ? You pass out (faint). ? You cannot pee. Summary ? Kidney stones are rock-like masses that form inside of the kidneys. ? Kidney stones can cause very bad pain and can block the flow of pee. ? The stones will often pass out of the body through peeing. ? Drink enough fluid to keep your pee pale yellow. This information is not intended to replace advice given to you by your health care provider. Make sure you discuss any questions you have with your health care provider. Document Revised: 01/17/2022 Document Reviewed: 01/17/2022 [employer] Patient Education ? 2022 [employer] [address] [facility] Urology Office/Clinic Noteon 03-27-2023 Urology Office/Clinic Note HPI Staff 57 yo male new pt re-referred by Dr. Antonio Kitchen for personal hx of urinary calculi. Last seen in office 08/27/[address] Culver. Previous Dx: BPH with LUTS, suprapubic pain, personal hx of smoking, usp use of blood thinners. S/p Cysto 06/08/17 and 07/26/18 by JERAMIE. S/p Green Light Laser of prostate 07/12/17 by DLS. No recent abdomen/pelvis imaging on [facility] or [facility]. 06/06/17 - first referred to by Dr. Kitchen, was taking Tamsulosin 0.4mg 06/08/17 - Started Terazosin 5mg qd after cysto (no record of Tamsulosin after that). 09/04/17 - Started Oxybutynin 5mg qd 08/27/18 - Started Vesicare 5mg qd PSA 03/18/17 - 3.15 12/06/19 - 0.927 03/26/22 - 0.58 Has PSA order at [facility] from 01/03/[address] Kitchen. Per pt incidental finding of 6mm stone in Rt Kidney found on Xray of hip due to arthritis. Denies Hx of Kidney Stone. Due to Hx of Arthritis, unsure if any pain is caused by stone. Occasional visible blood in urine, noticed within the last month. Notes Hx of microscopic hematuria through PCP. Denies difficulty urinating. History of Present Illness Tests reviewed: reviewed UA, referral records I have reviewed the previous health record information and history for this patient from external providers. I have reviewed and verified the staff HPI to be accurate for this encounter. Review of Systems PHQ Score Initial Depression Screen Score: 0 ROS - Provider Constitutional: denies weight loss, denies hot flashes. Eyes: denies eye problems. Gastrointestinal: denies nausea, denies vomiting. Cardiovascular: denies chest pain or angina. Integumentary: no dryness Musculoskeletal: denies musculoskeletal symptoms. ENMT: denies otolaryngeal symptoms. Respiratory: no shortness of breath. Heme/Lymph: denies easy bleeding tendency, denies easy bruising tendency. Psychiatric: no confusion, no anxiety. Genitourinary: See HPI. Physical Exam Vitals & Measurements HR: 71(Peripheral) RR: 16 BP: 139/76 HT: 73 in HT: 185 cm WT: 89 kg WT: 195.8 lb BMI: 26 General Appearance: alert, no distress, well nourished, well developed male. Head: normocephalic . Eyes: normal orbit and globe. ENMT: normal examination of external ears. Chest: Lungs CTA, respirations non labored. Cardiovascular: regular rate and rhythm. Abdomen: soft, non distended, no tenderness, no mass or organomegaly, no hernia. Genitourinary: normal scrotum, normal testes, normal urethra, normal epididymis, normal vas deferens/spermatic cord. Flank Pain: none. Bladder: nonpalpable. Penis: normal shaft, normal glans. Lymph Nodes: unremarkable palpation of the cervical area. Skin: warm, dry, no bruising. Psychiatric: cooperative, affect appropriate for age, normal judgement, euthymic mood. Assessment/Plan Janice is a 57 yo M new pt referred by Dr. Antonio Kitchen for personal h/o of urinary calculi. 1. Kidney stones (N20.0: Calculus of kidney) Lumbar spine XR 01/03/23 [facility] - 2 R renal calcifications measuring up to 6mm. Discussed imaging results. Advised pt due to presence of 2 stones, will need to complete a metabolic workup after eswl. Denies personal hx of kidney stones. States he does have chronic back pain, likely musculoskeletal. Discussed pain and urinary obstruction can occur if stone begins to move into the ureters. Reports he has been under anesthesia with other procedural interventions. Discussed management options including medical expulsive therapy x 4-6 week vs intervention including extracorporeal shockwave lithotripsy vs ureteroscopy with laser lithotripsy/stone basket extraction possible stent. Risks/benefits of each were discussed including but not limited to: MET- renal damage, pain or infection; ESWL- bleeding, hematoma, pain, infection, inability to break up the stone, ureteral obstruction, cardiac arrhythmias, damage to surrounding structures and need for additional procedures; ureteroscopy - bleeding, pain, infection, damage to surrounding structures, ureteral perforation, stricture, inability to treat the stone and need for additional procedures. If a stent is placed, pt understands this is not permanent and needs to be removed or exchanged within 3 months to prevent encrustation, infection, permanent renal damage and need for more invasive procedures. All questions/concerns were discussed. Pt to call the office if he encounters any issues prior. Pt acknowledges understanding. Will schedule Laser Litho. The procedural risks, benefits, details, and treatment alternatives have been discussed with the patient. These include bleeding, infection, inability to break or retrieve all of the stone, injury to the ureter (the tube which connects the kidney to the bladder), injury to the kidney scarring of the ureter, and need for repeat procedures, among others. Full informed consent has been obtained. Will order General anesthesia. 2. BPH (benign prostatic hyperplasia) (N40.0: Benign prostatic hyperplasia without lower urin (more content not included)... Normal [facility] Comment on above: Result Comment: Elec tronically Signed By: Sean COPE MD\.br\Date and Time Signed: 03/27/23 09:51 EDT\.br\Electronically Co-Signed By: Carol Padilla\.br\Date and Time Co-Signed: 03/27/23 09:47 EDT Auto Diffon 03-08-2023 Basophils/100 WBC (Bld) 0.5 % Normal 0.0-2.0 [facility] Comment on above: Order Comment: Order Added by Discern Expert. Performed By: #### 1 [id number] #### [facility] [address] [place] [address] Basophils/Leukocytes Auto (B ld) [Pure # fraction] 0.0 E9/L Normal 0.0-0.2 [facility] Comment on above: Order Comment: Order Added by Discern Expert. Performed By: #### 1 [id number] #### [facility] [address] [place] [address] Eosinophils/100 WBC (Bld) 0.8 % Normal 0.0-8.0 [facility] Comment on above: Order Comment: Order Added by Discern Expert. Performed By: #### 1 [id number] #### [facility] [address] [place] [address] Eosinophils/Leukocytes Auto (Bld) [Pure # fraction] 0.0 E9/L Normal 0.0-0.5 [facility] Comment on above: Order Comment: Order Added by Discern Expert. Performed By: #### 1 [id number] #### [facility] [address] [place] [address] Lymphocytes/100 WBC (Bld) 32.6 % Normal 14.0-50.0 [facility] Comment on above: Order Comment: Order Added by Discern Expert. Performed By: #### 1 [id number] #### [facility] [address] [place] [address] Lymphocytes/Leukocytes Auto (Bld) [Pure # fraction] 1.8 E9/L Normal 1.0-4.0 [facility] Comment on above: Order Comment: Order Added by Discern Expert. Performed By: #### 1 [id number] #### [facility] [address] [place] [address] Monocytes/100 WBC (Bld) 7.2 % Normal 4.0-14.0 [facility] Comment on above: Order Comment: Order Added by Discern Expert. Performed By: #### 1 [id number] #### [facility] [address] [place] [address] Monocytes/Leukocytes Auto (B ld) [Pure # fraction] 0.4 E9/L Normal 0.2-1.0 [facility] Comment on above: Order Comment: Order Added by Discern Expert. Performed By: #### 1 [id number] #### [facility] [address] [place] [address] Neutrophils/100 WBC (Bld) 58.9 % Normal 36.0-75.0 [facility] Comment on above: Order Comment: Order Added by Discern Expert. Performed By: #### 1 [id number] #### [facility] [address] [place] [address] Neutrophils/Leukocytes Auto (Bld) [Pure # fraction] 3.2 E9/L Normal 2.0-7.5 [facility] Comment on above: Order Comment: Order Added by Discern Expert. Performed By: #### 1 [id number] #### [facility] [address] [place] [address] CBC w/ Auto Diffon 3 Erythrocyte distribution wid th (RBC) [Ratio] 13.3 % Normal 10.9-14.2 [facility] Comment on above: Performed By: #### 1 [id number] #### [facility] [address] [place] [address] Hematocrit (Bld) [Volume fraction] 38.0 % Normal 37.7-49.0 [facility] Comment on above: Performed By: #### 1 [id number] #### [facility] [address] [place] [address] Hemoglobin (Bld) [Mass/Vol] 12.9 g/dL Low 13.5-17. 5 [facility] Comment on above: Performed By: #### 1 [id number] #### [facility] [address] [place] [address]52[address] MCH (RBC) [Entitic mass] 28.0 pg Normal 27.0-34.0 [facility] Comment on above: Performed By: #### 1 [id number] #### [facility] [address] [place] [address]242 MCHC (RBC) [Mass/Vol] 34.0 g/dL Normal 31.4-36.0 [facility] Comment on above: Performed By: #### 1 [id number] #### [facility] [address] [place] [address] 21080 MCV (RBC) [Entitic vol] 82.6 fL Normal 80.0-100.0 [facility] Comment on above: Performed By: #### 1 [id number] #### [facility] [address] [place] [address] 12632 Platelet mean volume (Bld) [Entitic vol] 7.7 fL Normal 6.4-10.8 [facility] Comment on above: Performed By: #### 1 [id number] #### [facility] [address] [place] [address] 685[address] Platelets (Bld) [#/Vol] 280.0 E9/L Normal 150.0-500.0 [facility] Comment on above: Performed By: #### 1 [id number] #### [facility] [address] [place] [address] 03056 RBC (Bld) [#/Vol] 4.6 E12/L Normal 4.3-5.9 [facility] Comment on above: Performed By: #### 1 [id number] #### [facility] [address] [place] [address] WBC corrected for nucl RBC A uto (Bld) [#/Vol] 5.4 E9/L Normal 4.0-11.0 [facility] Comment on above: Performed By: #### 1 [id number] #### [facility] [address] [place] [address] CHEMISTRYOrdered By: SYSTEM SYSTEM on 03-08-2023 CRP [Mass/Vol] 0.5 mg/dL Normal <=1.9mg/dL [facility] Remis ol CRPon 03-08-2023 CRP [Mass/Vol] 0.5 mg/dL Normal <=1.[address] [facility] Comment on above: Performed By: #### 1 [id number] #### [facility] [address] [place] [address] Consent for Treatmenton 02-26 Consent for Treatment [id number] Normal [facility] HEMATOLOGYOrdered By: SYSTEM SYSTEM on 03-08-2023 Basophils/100 WBC (Bld) 0.5 % Normal 0.0 - 2.0 % [facility]eAutoSS Basophils/Leukocytes Auto (B ld) [Pure # fraction] 0.0 E9/L Normal 0.0 - 0.2 E9/L [facility] Eosinophils/100 WBC (Bld) 0.8 % Normal 0.0 - 8.0 % [facility] Eosinophils/Leukocytes Auto (Bld) [Pure # fraction] 0.0 E9/L Normal 0.0 - 0.5 E9/L [facility] HemeAutoS S Lymphocytes/100 WBC (Bld) 32.6 % Normal 14.0 - 50. 0 % [facility]eAutoSS Lymphocytes/Leukocytes Auto (Bld) [Pure # fraction] 1.8 E9/L Normal 1.0 - 4.0 E9/L [facility]eAutoS S Monocytes/100 WBC (Bld) 7.2 % Normal 4.0 - 14.0 % [facility] Monocytes/Leukocytes Auto (B ld) [Pure # fraction] 0.4 E9/L Normal 0.2 - 1.0 E9/L [facility] Neutrophils/100 WBC (Bld) 58.9 % Normal 36.0 - 75. 0 % [facility] Neutrophils/Leukocytes Auto (Bld) [Pure # fraction] 3.2 E9/L Normal 2.0 - 7.5 E9/L [facility] S HEMATOLOGYOrdered By: Ortiz Braden on 03-08-2023 Erythrocyte distribution wid th (RBC) [Ratio] 13.3 % Normal 10.9 - 14.2 % [facility] Hematocrit (Bld) [Volume fraction] 38.0 % Normal 37.7 - 49.0 % [facility] Hemoglobin (Bld) [Mass/Vol] 12.9 g/dL Low 13.5 - 1 7.5 gm/dL [facility] MCH (RBC) [Entitic mass] 28.0 pg Normal 27.0 - 34.0 pg [facility] MCHC (RBC) [Mass/Vol] 34.0 g/dL Normal 31.4 - 36.0 gm /dL [facility] MCV (RBC) [Entitic vol] 82.6 fL Normal 80.0 - 100.0 fL [facility] Platelet mean volume (Bld) [Entitic vol] 7.7 fL Normal 6.4 - 10.8 fL [facility] Platelets (Bld) [#/Vol] 280.0 E9/L Normal 150.0 - 500. 0 E9/L [facility] RBC (Bld) [#/Vol] 4.6 E12/L Normal 4.3 - 5.9 E12/L [facility] WBC corrected for nucl RBC A uto (Bld) [#/Vol] 5.4 E9/L Normal 4.0 - 11.0 E9/L [facility] HEMATOLOGYOrdered By: Shikha Conteh on 03-08-2023 Sed Rate Automated 12 mm/h Normal 0 - 19 mm/hr [facility] Physician Orderon 03-08-2023 Physician Order [id number] Normal [facility] Sed Rate Automatedon 023 Sed Rate Automated 12 mm/hr Normal 0-19 [facility] Comment on above: Performed By: #### 1 [id number] #### [facility] [address] [place] [address] IntraOperative Documentson 0 02-22-2023 IntraOperative Documents [id number]:127 Normal [facility] Main OR Intraoperative Recor don 02-09-2023 Main OR Intraoperative Record IntraOp Document Type FT Summary Primary Physician: Yann Alvarez DO Finalized Date/Time: 02/09/23 13:23:06 Pt. Name: JANICE SMYTH./Sex: 1965 Male Med Rec #: [id number] Physician: Yann Alvarez DO Financial #: [id number] Pt. Type: A Room/Bed: [place] [address] Admit/Disch: 02/07/23 06:04:01 - 02/07/23 15:10:00 Institution: Case Times FT Entry 1 Patient Times In Room 02/07/23 08:51:00 Out Room 02/07/23 10:40:00 Procedure Times Start 02/07/23 09:23:00 Stop 02/07/23 10:33:00 Anesthesia Times Start 02/07/23 08:51:00 Stop 02/07/23 10:40:00 Block Timeout w/ 02/07/23 07:39:00 Anesthesia Last Modified By: Trey Ellison 02/07/23 10:40:23 General Comments: Patient taken from [facility] to the block room at 0739 by ANNELIESE Perez, connected to monitors with HR at 63bpm, SpO2 at 97% on room air, then right adductor canal nerve block done by Dr. Desouza at [phone] with Chris, ANNELIESE assisting, no issues, taken back to [facility] at 0746, hooked to monitors, verbal reports given to [facility] RN. ANNELIESE Perez 02/09/23 Chart opened to review and send charges [facility] Case Attendance FT Entry 1 Entry 2 Entry 3 Case Attendee Carlton RUIZ, COUNCIL ON AGING DIRECTOR, Yann Aden DO, CST, Elroy Morales Role Performed COUNCIL ON AGING DIRECTOR Surgeon - Primary CAKE PUNCHER/SA Time In 02/07/23 08:51:00 02/07/23 08:51:00 02/07/23 08:51:00 Time Out 02/07/23 10:40:00 02/07/23 10:24:00 02/07/23 10:40:00 Procedure KNEE TOTAL ROBOT KNEE TOTAL ROBOT KNEE TOTAL ROBOT ARTHROPLASTY(Right) ARTHROPLASTY(Right) ARTHROPLASTY(Right) Comments DR DESOUZA SUPERVISING. Last Modified By: Trey Ellison Terry T Sweene, Terry T 02/07/23 10:47:44 02/07/23 10:47:44 02/07/23 10:47:44 Entry 4 Entry 5 Entry 6 Case Attendee Trey Ellison Laura C Troike, Kendall R Role Performed Mirror Finishing Machine Operator - Primary Scrub - Primary Scrub - Primary Time In 02/07/23 08:51:00 02/07/23 08:51:00 02/07/23 08:51:00 Time Out 02/07/23 10:40:00 02/07/23 10:40:00 02/07/23 10:40:00 Procedure KNEE TOTAL ROBOT KNEE TOTAL ROBOT KNEE TOTAL ROBOT ARTHROPLASTY(Right) ARTHROPLASTY(Right) ARTHROPLASTY(Right) Comments IN ORIENTATION PRECEPTOR Last Modified By: Trey Ellison Terry T Sweene, Terry T 02/07/23 10:47:44 02/07/23 10:47:44 02/07/23 10:47:44 Entry 7 Case Attendee Violetta Villegas Role Performed Staff - Other Time In 02/07/23 08:51:00 Time Out 02/07/23 10:20:00 Procedure KNEE TOTAL ROBOT ARTHROPLASTY(Right) Comments 2ND SCRUB Last Modified By: Trey Ellison 02/07/23 10:47:44 General Comments: PUSHPA HARPER REP HERE FOR CASE. Alyssa ELLISON RN. NAV HARPER REP HERE FOR CASE. Alyssa ELLISON RN. Perioperative Protocols FT Pre-Care Text: Implements protective measures prior to operative or invasive procedure, confirms identity before the operative or invasive procedure, verifies operative procedure, surgical site, and laterality Entry 1 Procedure(s) KNEE TOTAL ROBOT Patient Identity Birthday, ID Band ARTHROPLASTY(Right) Verified (select at Check, Patient least 2): Participation Consents / H and P Anesthesia Consent, Operative Site Present Verified HandP, Surgery/Procedure Marking Verified Consent Surgical Site Yes Laterality Verified Yes Verified Procedure Verified Yes Correct Patient Yes Position Verified Availability Equipment, Implant, Prep Dry Yes Verified (If Medication Applicable) PreOp Antibiotic Yes Time Out Carlton RUIZ, LORELEI, Per Blas CST, Benjamin, Pocos DO, David A, Sweene, Terry T, Alem Patel, Adithya Frederick, Violetta Villegas Time Out Complete 02/07/23 09:14:00 Outcomes Met? Yes Last Modified By: Trey Ellison 02/07/23 09:31:05 Post-Care Text: The patient is free from signs and symptoms of injury caused by extraneous objects Allergy Information FT Pre-Care Text: Verifies allergies Entry 1 Allergies Reviewed? Yes Allergies Reviewed Self/Patient With Outcomes Met? Yes Last Modified By: Trey Ellison 02/07/23 09:31:13 Post-Care Text: The patient received appropriate medication(s) safely administered during the perioperative period Surgical Procedures FT Entry 1 Procedure Description Procedure KNEE TOTAL ROBOT Modifiers Right ARTHROPLASTY Surgeon Description RIGHT ROBOTIC ASSIST TOTAL KNEE ARTHROPLASTY Primary Procedure Yes Primary Surgeon Yann Alvarez DO Start 02/07/23 09:23:00 Stop 02/07/23 10:33:00 Anesthesia Type General Surgical Service Orthopedics Wound Class 1 - Clean Last Modified By: Beverly Lopez CST 02/09/23 13:19:48 General Comments: CONVERT ANESTHESIA FROM MAC/SPINAL TO GENERAL. PATIENT CONTINUED TO MOVE DURING SURGERY. LMA PLACED BY ANESTHESIA. Alyssa ELLISON RN. General Case Data FT Pre-Care Text: Classifies surgical wound, implements aseptic technique, initiates traffic control Entry 1 Case Information OR OR 7 FT Case Level Level 6 Wound Class 1 - Clean Specialty O (more content not included)... Normal [facility] Consent for Anesthesiaon Consent for Anesthesia [id number]:127 [facility] Discharge Instructionson Discharge Instructions [id number]:127 [facility] IntraOperative Documentson 0 02-08-2023 IntraOperative Documents [id number]#[id number]:127 Normal [facility] Preoperative Documentson Preoperative Documents [id number]:127 Normal [facility] ABO/Rhon 02-07-2023 ABO/Rh Positive Invalid Interpretation Code [facility] Comment on above: Performed By: #### 1 [id number] #### [facility] [address] [place] [address] ABO/Rh History Checkon 02-07 ABO/Rh History Check Verified Hx Blood Type Normal [facility] Comment on above: Performed By: #### 1 [id number], [id number], [id number] #### [facility] [address] [place] [address] ABSCon 02-07-2023 ABSC Gel Interp Negative Normal [facility] Comment on above: Performed By: #### 1 [id number], [id number], [id number] #### [facility] [address] [place] [address] BLOOD BANKOrdered By: John Amin on 02-07-2023 ABO/Rh Interp Positive Invalid Interpretation Code [facility] BB Subsection ABSC Gel Interp Negative (02/07/23 6:40 AM) Normal [facility] BB Subsection Blood Bank ID#on 02-07-2023 BBID# [id number] Invalid Interpretation Code [facility] Comment on above: Performed By: #### 1 [id number] #### [facility] [address] [place] [address] CHEMISTRYOrdered By: Bren ROP User on 02-07-2023 Glucose [Mass/Vol] 307 mg/dL High 55 - 99 mg/dL FT C POC Subsection Comment on above: Result Comment: Lucina edison Meter POC Device SN [id number] Invalid Interpre tation Code FT POC Subsection POC User ID [id number] Invalid Interpre tation Code FT POC Subsection POC Username CELESTE BARRETT Invalid Interpre tation Code FT POC Subsection Glucose [Mass/Vol] 195 mg/dL High 55 - 99 mg/dL FT POC Subsection POC Device SN [id number] Invalid Interpre tation Code FT POC Subsection POC User ID [id number] Invalid Interpre tation Code FT POC Subsection POC Username CELESTE BARRETT Invalid Interpre tation Code [facility] POC Subsection Capillary Glucose POCon 01-27 Glucose [Mass/Vol] 307 mg/dL High 55-99 [facility] Comment on above: Result Comment: Lucina edison Meter Performed By: #### 2 [id number] #### [facility] [address] [place] [address] Glucose [Mass/Vol] 195 mg/dL High 55-99 [facility] Comment on above: Performed By: #### 2 [id number] ####[facility] [address] [place] [address] Consent for Treatmenton 01-27 Consent for Treatment [id number]:127 [facility] Discharge Instructionson Discharge Instructions JANICE SMYTH :1965 Visit Date:02/07/2023 Inpatient Discharge Instructions Your Care Team Admitting Physician - Yann Alvarez DO Referring Physician - Yann Alvarez DO Reason for Your Visit RIGHT KNEE OA Your Diagnosis Coronary artery disease Tests Performed ABO/Rh Antibody Screen Capillary Glucose POC Pathology Tissue Exam -- Results Pending -- XR Knee 1 or 2 Views Right Please visit your patient portal for your results or contact your primary care physician. What to do next Instructions From Your Doctor Event Name Event Result Discharge Instructions Discharge Instructions Previously Scheduled Follow-Up Appointments Monday 9:00 AM EDT With: PRISCA ACOSTA, Sean Stovall Where: [facility] Comment on above: Result Comment: Elec tronically Signed By: Obi COY, Sienna Grant\.br\Date and Time Signed: 02/07/23 12:39 EDT Discharge Instructions JANICE SMYTH :1965 Visit Date:02/07/2023 Inpatient Discharge Instructions Your Care Team Admitting Physician - Yann Alvarez DO Referring Physician - Yann Alvarez DO Reason for Your Visit RIGHT KNEE OA Your Diagnosis Coronary artery disease Tests Performed ABO/Rh Antibody Screen Capillary Glucose POC Pathology Tissue Exam -- Results Pending -- XR Knee 1 or 2 Views Right Please visit your patient portal for your results or contact your primary care physician. Procedure History Cardiac catheterisation (02/24/2020), PCI - Percutaneous coronary intervention (12/26/2019), Shoulder joint instability (2005), Fracture of hand (2003), Tonsillectomy (2001), ACL - Anterior cruciate ligament deficiency (1978), Femur (1973), Coronary artery stent. What to do next New Follow Up Appointments after Discharge Follow Up with Yann Alvarez When: 03/08/2023 10:30 AM EDT Comments: Appointment has already been scheduled Call for any problems. Where: [address] [place] [address] [facility] ([facility]) Medications What How Much When Why Instructions Next Dose Unchanged aspirin (aspirin 81 mg Oral EC Tab) 1 Tablets By Mouth Every day Unchanged atorvastatin (atorvastatin 80 mg Tab) 1 Tablets By Mouth Every day Coronary artery disease Unchanged ixekizumab (Taltz Autoinjector) 80 Milligram Subcutaneous Every 4 weeks Unchanged latanoprost ophthalmic (latanoprost Opth 0.005% Rosalina) 1 Drops Ophthalmic Once a day (at bedtime) Unchanged losartan (losartan 100 mg Tab) 1 Tablets By Mouth Every day Unchanged meloxicam (meloxicam 15 mg Tab) 1 Tablets By Mouth Every day Unchanged metformin (metformin 500 mg Tab) 1 Tablets By Mouth 2 times a day Unchanged multivitamin with minerals (Multivitamins and Minerals) 1 tab By Mouth Every day Unchanged nitroglycerin (nitroglycerin 0.4 mg sublingual Tab) 1 Tablets Sublingual Every 5 minutes as needed for Chest pain not to exceed 3 doses/ 15 min--if pain persists, seek medical attention Unchanged omega-3 polyunsaturated fatty acids (Fish Oil) 500 Milligram By Mouth Every day Unchanged paroxetine (paroxetine 10 mg Tab) 1 Tablets By Mouth Every day Unchanged pyridoxine (Vitamin B6 100 mg Tab) 1 Tablets By Mouth Every day Unchanged semaglutide (Rybelsus 7 mg oral tablet) 90 EA, TAKE 1 TAB AT LEAST 30MIN. BEFORE FIRST FOOD, DRINK, OR OTHER ORAL MEDS OF THE DAY Allergies HYDROcodone (Itching) Problems Ongoing - Any problem that you are currently receiving treatment for. Coronary artery disease Type 2 diabetes mellitus Historical - Any problem that you are no longer receiving treatment for. Diabetes type STEMI - ST elevation myocardial infarction Devices Implanted/Removed This Visit Notice: You have devices implanted this visit that may not be MRI compatible. Implanted KNEE TOTAL ROBOT ARTHROPLASTY Knee R TRIATHLON CRUCIATE RETAINING FEMORAL COMPONENT 02/07/2023 TRIATHLON TRITANIUM TIBIAL COMPONENT 02/07/2023 TRIATHLON X3 TIBIAL BEARING INSERT 02/07/2023 TRIATHLONTRITANIUM ASYMMETRIC PATELLA 02/07/2023 Education Materials How to Use an Incentive Spirometer An incentive spirometer is a tool that measures how well you are filling your lungs with each breath. Learning to take long, deep breaths using this tool can help you keep your lungs clear and active. This may help to reverse or lessen your chance of developing breathing (pulmonary) problems, especially infection. You may be asked to use a spirometer: ? After a surgery. ? If you have a lung problem or a history of smoking. ? After a long period of time when you have been unable to move or be active. If the spirometer includes an indicator to show the highest number that you have reached, your health care provider or respiratory therapist will help you set a goal. Keep a log of your progress as told by your health care provider. What are the risks? ? Breathing too quickly may cause dizziness or cause you to pass out. Take your time so you do not get dizzy or light-headed. ? If you are in pain, you may need to take pain medicine before doing incentive spirometry. It is harder to take a deep breath if you are having pain. How to use your incentive spirometer 1. Sit up on the edge of your bed or on a chair. 2. Hold the incentive spirometer so that it is in an upright position. 3. Before you use the spirometer, breathe out normally. 4. Place the mouthpiece in your mouth. Make sure your lips are closed tightly around it. 5. Breathe in slowly and as deeply as you can through your mouth, causing the piston or the ball to rise toward the top of the chamber. 6. Hold your breath for 3?5 seconds, or for as long as possible. ? If the spirometer includes a college football coach indicator, use this to guide you in breathing. Slow down your breathing if the indicator goes (more content not included)... Normal [facility] Comment on above: Result Comment: Elec tronically Signed By: Ralph COY, Christa Caceres\.br\Date and Time Signed: 02/07/23 11:50 EDT H&P Updateon 02-07-2023 H&P Update [id number] :127 Normal [facility] Main OR PACU I Recordon 01-27 Main OR PACU I Record PACU Phase I Docum ent Type FT Summary Primary Physician: Yann Alvarez DO Finalized Date/Time: 02/07/23 12:12:17 Pt. Name: JANICE SMYTH/Sex: 1965 Male Med Rec #: [id number] Physician: Yann Alvarez DO Financial #: [id number] Pt. Type: A Room/Bed: [place] [address] Admit/Disch: 02/07/23 06:04:01 - Institution: Case Times PACU I FT Pre-Care Text: Identifies barriers to communication and implements measures to provide psychological support Develops individualized plan of care, and ensures continuity of care Maintains patient's dignity and privacy, and maintains patient confidentiality Identifies and reports philosophical, cultural, and spiritual beliefs and values Identifies individual values and wishes concerning care Implements aseptic technique, and administers prescribed antibiotic therapy and immunizing agents as ordered Evaluates postoperative tissue perfusion Implements thermoregulation measures, and monitors body temperature Evaluates postoperative respiratory status Evaluates postoperative cardiac status Evaluates postoperative neurological status Assesses pain control, collaborated in initiating patient-controlled analgesia and implements alternative methods of pain control Verifies allergies, administers prescribed medications and solutions, evaluates response to medications Entry 1 In PACU I 02/07/23 10:42:00 Discharge from PACU 02/07/23 11:36:00 I Outcomes Met? Yes Last Modified By: Lakisha Wren RN 02/07/23 12:11:38 Post-Care Text: The patient demonstrates knowledge of the expected response to the operative or invasive procedure The patient's care is consistent with the individualized perioperative plan of care The patient's right to privacy is maintained The patient's value system, lifestyle, ethnicity, and culture are considered, respected, and incorporated into the perioperative plan of care The patient participates in decisions affecting his or her perioperative plan of care The patient is free from signs and symptoms of infection The patient has wound/tissue perfusion consistent with or improved from baseline levels established preoperatively The patient is at or returning to normothermia at the conclusion of the immediate postoperative period The patient's respiratory function is consistent with or improved from baseline levels established preoperatively The patient's cardiovascular status is consistent with or improved from baseline levels established preoperatively The patient's cardiovascular status is consistent with or improved from baseline levels established preoperatively The patient demonstrates and/or reports adequate pain control throughout the perioperative period The patient received appropriate medication(s), safely administered during the perioperative period Acuity Level PACU I FT Entry 1 Start Time 02/07/23 10:42:00 Stop Time 02/07/23 11:36:00 Acuity Level Acuity Level I Last Modified By: Lakisha Wren RN 02/07/23 12:12:12 Finalized By: Lakisha Wren RN Document Signatures Signed By: Lakisha Wren RN 02/07/23 12:[address] [facility] Main OR Preoperative Recordo n 02-07-2023 Main OR Preoperative Record PreOp Docume nt Type FT Summary Primary Physician: Yann Alvarez DO Finalized Date/Time: 02/07/23 09:27:11 Pt. Name: JANICE SMYTH/Sex: 1965 Male Med Rec #: [id number] Physician: Yann Alvarez DO Financial #: [id number] Pt. Type: A Room/Bed: Admit/Disch: 02/07/23 06:04:01 - Institution: Case Times PreOp FT Pre-Care Text: Verifies consent for planned procedure, identifies individual values and wishes concerning care, includes family members in perioperative teaching Entry 1 Patient Times. In Pre Surgery 02/07/23 06:05:00 Out Pre Surgery 02/07/23 08:49:00 Outcomes Met? Yes Last Modified By: Trey Ellison 02/07/23 09:27:09 Post-Care Text: The patient participates in decisions affecting his or her perioperative plan of care Finalized By: Trey Ellison Document Signatures Signed By: Trey Ellison 02/07/23 09:27 Normal [facility] Monitor Recordon 02-07-2023 Monitor Record [id number]:127 Normal [facility] Monitor Record [id number]:127 Normal [facility] Operative Reporton Operative Report SURGERY DATE: 2022 CUSTOM FURRIER: Elroy Albarado CFA PREOPERATIVE DIAGNOSIS: Right knee osteoarthritis POSTOPERATIVE DIAGNOSIS: Right knee osteoarthritis OPERATION: Right knee robotic-assisted total knee arthroplasty using the Moises platform ANESTHESIA: Adductor canal block/spinal as well as general ANESTHESIOLOGIST: Queen Carmen Vincent CRNA ESTIMATED BLOOD LOSS: None INTRAVENOUS FLUIDS/URINARY OUTPUT: Please see operative record SPECIMEN: Bone and soft tissue COMPLICATIONS: None DRAINS: None IMPLANT: Brayan Triathlon Total Knee System with a size 6 right cruciate-retaining Press Fit femur, a size 6 tibial baseplate, 6 x 9 mm condylar stabilized X3 polyethylene, and a 35 asymmetric Press Fit patella HISTORY/OPERATIVE INDICATIONS: The patient is a 57-year-old white male who presents complaining of persistent pain and difficulty about the right knee. The patient has had conservative care without relief and the pain does affect quality of life. The patient does appear to be clinically indicated/cost effective for total knee arthroplasty. Please see the preoperative History and Physical, progress notes for further details. The patient has decided upon the procedure and the procedure undertaken here today. INTRAOPERATIVE PATHOLOGY: Upon dissection of the right knee there is noted to be severe arthrosis primarily centered medially to a lesser extent patellofemoral and lateral. Total knee arthroplasty is done with episcopalian of limb stability, alignment and length with the use of the Moises robotic platform. The patient did tolerate the procedure well under spinal/general with an adductor canal block. The block is requested per myself to aid in intra, perioperative and postoperative pain management. This does appear to be clinically indicated, cost effective. PROCEDURE: After informed consent is obtained, the risks, complications, reasonable expectations of the above procedure are discussed at length. The patient is taken to the Operative Suite, placed on the operating room table in supine position. At this point, the patient is given a spinal anesthetic. A well-padded tourniquet is applied to the right leg and the bed adjusted accordingly. The knee is sterilely prepped and draped in the usual surgical fashion at which time the site verification process is verified with a time-out procedure. This is done on the ZipList platform as well. The limb is exsanguinated with an Esmarch. Tourniquet inflated to 300 mmHg. Medial parapatellar approach is utilized. Anterior fat pad, medial and lateral menisci are removed. Patella is cut free. The focus is then to the tibial array. A stab incision is made over the mid leg area anteromedial. Dissection bluntly onto the level of bone. The pin is placed in the standard fashion. The guide is then utilized to identify the second incision point. Again blunt dissection, second pin is applied. The tibial array is applied, adjusted and then tightened. Next, the knee is flexed and the femoral array is applied. This is in the medial femoral condyle. The pins are placed individually with a guide system as well. The femoral array is applied and adjusted and tightened accordingly. The femoral checkpoint and the tibial checkpoints are then applied. Circumduction is performed. The knee is flexed and the fine registration is done for the femur after registration of the robot followed by gross points thereafter. The process is done the same on the tibia with fine registration followed by gross points. At this point, balancing is done and the plan is adjusted accordingly. This is in flexion and extension. The plan adjusted for dynamic balance of the knee. The knee is flexed. The robot is brought into the field. The saw blade is registered. The distal cut followed by the posterior chamfer cut are then done. The saw blade is changed and re-registered. The anterior cut, anterior chamfer cut on the femur are done followed by the posterior cut. The saw blade registered to the tibia and then the tibial cut is made. Excess bone is removed. Of note, the osteophytes were removed prior to the balancing step. At this point, trialing is done and found to be most adequate with the 6 x 9 mm trial polyethylene. The lug holes are drilled. The keel is punched for the tibia. The patella is sized to a 35 asymmetric. Peg holes are drilled. This did track quite nicely through the arc of motion. At this point, all trials are removed. The Exparel solution is injected to the posterior capsule, periosteal, fascial, subcutaneous layers and skin. The knee is lavaged. The tibia is cemented followed by the femur, placement of the polyethylene and finally cementation of the patella. The cement is allowed to harden. Adequate balancing is achieved and final balance is identified as the cement is allowed to harden. A dilute Betadine soak is performed. This is lavaged away. While cement is hardening, the tibial and femoral arrays are removed, the pins are removed, and the femoral and tibial checkpoints (more content not included)... Normal [facility] Comment on above: Result Comment: Elec tronically Signed By: Yann Alvarez DO\.br\Date and Time Signed: 02/07/23 12:11 EDT Operative Report Patient: MARIO SMYTH Age: 57 years Sex: Male : 1965 Associated Diagnoses: None Author: Deion Desouza DO Procedure Nerve Block Block Type: Adductor canal block. Laterality: Right. Informed consent for anesthesia management: Anesthesia options discussed including nerve block, Description of the procedure, risks, benefits, and alternatives was provided, The patient's questions were addressed. Time out: Confirmed correct patient, procedure and site. Time: Date/Time 02/07/2023 07:34:00. Indication: Block for postoperative pain management as requested by surgeon. Anesthesia Method: IV Sedation with monitored anesthesia care, The patient remained awake and able to interact in a meaningful way throughout the procedure. Preparation: The patient was placed in the following position Supine, Continuous pulse oximetry applied, Using maximal sterile barrier technique per current [facility] guidelines including hand hygeine, Guidance (Ultrasound used to identify anatomical landmarks, Using sterile gel and probe covers, Permanent image retained), The site was prepped with ChloraPrep. Procedure: Anesthetic Agent 0.5% Ropivacaine with 4mg Decadron, Catheter size 21 guage, Catheter length 100 mm, Number of attempts 1. Complications: None, The patient tolerated the procedure as expected. Normal [facility] Comment on above: Result Comment: Elec tronically Signed By: Deion Desouza DO\.br\Date and Time Signed: 02/07/23 07:34 EDT Patient Education - Texton 0 02-07-2023 Patient Education - Text (Inserted Image . Unable to display) Pulmonary Medicine How to Use an Incentive Spirometer An incentive spirometer is a tool that measures how well you are filling your lungs with each breath. Learning to take long, deep breaths using this tool can help you keep your lungs clear and active. This may help to reverse or lessen your chance of developing breathing (pulmonary) problems, especially infection. You may be asked to use a spirometer: ? After a surgery. ? If you have a lung problem or a history of smoking. ? After a long period of time when you have been unable to move or be active. If the spirometer includes an indicator to show the highest number that you have reached, your health care provider or respiratory therapist will help you set a goal. Keep a log of your progress as told by your health care provider. What are the risks? ? Breathing too quickly may cause dizziness or cause you to pass out. Take your time so you do not get dizzy or light-headed. ? If you are in pain, you may need to take pain medicine before doing incentive spirometry. It is harder to take a deep breath if you are having pain. How to use your incentive spirometer 1. Sit up on the edge of your bed or on a chair. 2. Hold the incentive spirometer so that it is in an upright position. 3. Before you use the spirometer, breathe out normally. 4. Place the mouthpiece in your mouth. Make sure your lips are closed tightly around it. 5. Breathe in slowly and as deeply as you can through your mouth, causing the piston or the ball to rise toward the top of the chamber. 6. Hold your breath for 3?5 seconds, or for as long as possible. ? If the spirometer includes a college football coach indicator, use this to guide you in breathing. Slow down your breathing if the indicator goes above the marked areas. 7. Remove the mouthpiece from your mouth and breathe out normally. The piston or ball will return to the bottom of the chamber. 8. Rest for a few seconds, then repeat the steps 10 or more times. ? Take your time and take a few normal breaths between deep breaths so that you do not get dizzy or light-headed. ? Do this every 1?2 hours when you are awake. 9. If the spirometer includes a goal marker to show the highest number you have reached (best effort), use this as a goal to work toward during each repetition. 10. After each set of 10 deep breaths, cough a few times. This will help to make sure that your lungs are clear. ? If you have an incision on your chest or abdomen from surgery, place a pillow or a rolled-up towel firmly against the incision when you cough. This can help to reduce pain while taking deep breaths and coughing. General tips ? When you are able to get out of bed: ? Walk around often. ? Continue to take deep breaths and cough in order to clear your lungs. ? Keep using the incentive spirometer until your health care provider says it is okay to stop using it. If you have been in the hospital, you may be told to keep using the spirometer at home. Contact a health care provider if: ? You are having difficulty using the spirometer. ? You have trouble using the spirometer as often as instructed. ? Your pain medicine is not giving enough relief for you to use the spirometer as told. ? You have a fever. Get help right away if: ? You develop shortness of breath. ? You develop a cough with bloody mucus from the lungs. ? You have fluid or blood coming from an incision site after you cough. Summary ? An incentive spirometer is a tool that can help you learn to take long, deep breaths to keep your lungs clear and active. ? You may be asked to use a spirometer after a surgery, if you have a lung problem or a history of smoking, or if you have been inactive for a long period of time. ? Use your incentive spirometer as instructed every 1?2 hours while you are awake. ? If you have an incision on your chest or abdomen, place a pillow or a rolled-up towel firmly against your incision when you cough. This will help to reduce pain. ? Get help right away if you have shortness of breath, you cough up bloody mucus, or blood comes from your incision when you cough. This information is not intended to replace advice given to you by your health care provider. Make sure you discuss any questions you have with your health care provider. Document Revised: 08/03/2020 Document Reviewed: 08/03/2020 Elsevier Patient Education ? 2022 [employer] [place], [place] [facility] DISCHARGE INSTRUCTIONS TOTAL KNEE ARTHROPLASTY INCISION CARE: Continue the daily dressing care to the knee as instructed in the hospital for 7 days postoperatively. The dressing will then be changed and worn an additional 7 days. You may then discontinue the dressing changes. Remove the dressing on the lower leg po (more content not included)... Normal [facility] Progress Note-Physicianon Progress Note-Physician Patient: JANICE SMYTH Age: 57 years Sex: Male : 1965 Associated Diagnoses: None Author: Deion Desouza DO Postoperative Information Postoperative disposition: Postoperative disposition: To PACU. Anesthetic utilized: Regional: Spinal. Health Status Allergies: Allergic Reactions (Selected) Severity Not Documented HYDROcodone- Itching. Current medications: (Selected) Inpatient Medications Ordered Colace 100 mg Cap: 100 mg = 1 cap(s), Cap, Oral, BID, Routine, Start date 02/07/23 21:00:00 EDT, 02/07/23 10:39:00 EDT Dulcolax 5 mg Tab-EC: 10 mg = 2 tab(s), Tab-EC, Oral, Daily PRN Constipation, Routine, Start date 02/09/23 10:39:00 EDT, 02/09/23 10:39:00 EDT HumaLOG Sliding Scale: 0-8 unit(s), Injection-Insulin, SubCutaneous, QIDACHS, Routine, Start date 02/07/23 11:30:00 EDT Lactated Ringers IV Rosalina 1000 mL 1,000 mL: 1,000 mL, IV, 150 mL/hr, Routine, Start date 02/07/23 6:00:00 EDT, 6.7 hour(s), Total volume (mL): 1,000, 97 kg, 2.25, m2 Lactated Ringers IV Rosalina 1000 mL 1,000 mL: 1,000 mL, IV, 80 mL/hr, Routine, Start date 02/07/23 10:39:00 EDT, 12.5 hour(s), Total volume (mL): 1,000, 97 kg, 2.25, m2 Milk of Magnesia 8% Susp-Oral: 30 mL, Susp-Oral, Oral, BID PRN Constipation, Routine, Start date 02/07/23 10:39:00 EDT Nozin 62% Bottle - POSTOP: 6 drop(s), Soln-Nasal, Nasal, BID, Routine, Start date 02/07/23 21:00:00 EDT Pantoprazole [address] Tab: 40 mg = 1 tab(s), Tab-DR, Oral, Daily, Routine, Start date 02/08/23 9:00:00 EDT, 02/07/23 10:39:00 EDT Vitamin C 500 mg Tab: 500 mg = 1 tab(s), Tab, Oral, BIDWM, Routine, Start date 02/07/23 17:00:00 EDT, 02/07/23 10:39:00 EDT Zofran 4 mg/2 mL Injection: 4 mg = 2 mL, Injection, IV Push, q6hr PRN Nausea/Vomiting, Routine, Start date 02/07/23 10:39:00 EDT, 02/07/23 10:39:00 EDT cefazolin additive + Sodium Chloride 0.9% intravenous solution 50 mL: 2 gram = 1 EA, Powder-Inj, IV Piggyback, q8hr for 2 dose(s), Stop date 02/08/23 8:59:00 EDT, Routine, Start date 02/07/23 17:00:00 EDT, 100 mL/hr, Infuse over 30 minute(s) ferrous sulfate 325 mg Tab: 325 mg = 1 tab(s), Tab, Oral, BIDWM, Routine, Start date 02/07/23 17:00:00 EDT, 02/07/23 10:39:00 EDT oxyCODONE 5 mg Tab: 10 mg = 2 tab(s), Tab, Oral, q4hr PRN Pain 8-10 for 5 day(s), Stop date 02/12/23 10:38:00 EDT, Routine, Start date 02/07/23 10:39:00 EDT, 02/07/23 10:39:00 EDT oxyCODONE 5 mg Tab: 5 mg = 1 tab(s), Tab, Oral, q4hr PRN Pain 8-10 for 5 day(s), Stop date 02/12/23 10:38:00 EDT, Routine, Start date 02/07/23 10:39:00 EDT, 02/07/23 10:39:00 EDT Prescriptions Prescribed aspirin 81 mg Oral EC Tab: 81 mg = 1 tab(s), Oral, Daily, # 90 tab(s), Refills(s) 3, Pharmacy: [facility], 186, cm, 11/24/21 14:21:00 EDT, Height/Length Dosing, 98, kg, 11/24/21 14:21:00 EDT, Weight Dosing atorvastatin 80 mg Tab: 80 mg = 1 tab(s), Oral, Daily, # 90 tab(s), Refills(s) 3, Pharmacy: [facility], 186, cm, 10/20/20 11:38:00 EDT, Height/Length Dosing, 96, kg, 10/20/20 11:38:00 EDT, Weight Dosing nitroglycerin 0.4 mg sublingual Tab: 0.4 mg = 1 tab(s), SubLingual, q5min, PRN Chest pain, not to exceed 3 doses/15 min--if pain persists, seek medical attention, # 30 tab(s), Refills(s) 0, Pharmacy: [facility]/pharmacy #[id number], 185.4, cm, 02/21/20 20:48:00 EDT, Height/Length Dosing, 93.7, kg, 09... Documented Medications Documented Fish Oil: 500 mg, Oral, Daily, Refill(s) 0, Prophylaxis Multivitamins and Minerals: 1 tab, Oral, Daily, Refill(s) 0, Prophylaxis Rybelsus 7 mg oral tablet: 90 EA, TAKE 1 TAB AT LEAST 30MIN. BEFORE FIRST FOOD, DRINK, OR OTHER ORAL MEDS OF THE DAY, Refills(s) 0, Blood glucose Taltz Autoinjector: 80 mg, SubCutaneous, q4wk, Refills(s) 0, Other (see comment) Vitamin B6 100 mg Tab: 100 mg = 1 tab(s), Oral, Daily, Prophylaxis latanoprost Opth 0.005% Rosalina: 1 drop(s), OPTH, Once a day (at bedtime), Ocular congestion losartan 100 mg Tab: 100 mg = 1 tab(s), Oral, Daily, High blood pressure meloxicam 15 mg Tab: 15 mg = 1 tab(s), Oral, Daily, Inflammation metformin 500 mg Tab: 500 mg = 1 tab(s), Oral, BID, Refills(s) 0, Blood glucose paroxetine 10 mg Tab: 10 mg = 1 tab(s), Oral, Daily, Refills(s) 0, Depression, Home Medications (13) Active aspirin 81 mg Oral EC Tab 81 mg = 1 tab(s), Oral, Daily atorvastatin 80 mg Tab 80 mg = 1 tab(s), Oral, Daily Fish Oil 500 mg, Oral, Daily latanoprost Opth 0.005% Rosalina 1 drop(s), OPTH, Once a day (at bedtime) losartan 100 mg Tab 100 mg = 1 tab(s), Oral, Daily meloxicam 15 mg Tab 15 mg = 1 tab(s), Oral, Daily metformin 500 mg Tab 500 mg = 1 tab(s), Oral, BID Multivitamins and Minerals 1 tab, Oral, Daily nitroglycerin 0.4 mg sublingual Tab 0.4 mg = 1 tab(s), PRN, SubLingual, q5min paroxetine 10 mg Tab 10 mg = 1 tab(s), Oral, Daily Rybelsus 7 mg oral tablet Taltz Autoinjector 80 mg, SubCutaneous, q4wk Vitamin B6 100 mg Tab 100 mg = 1 tab(s), Oral, Daily Problem list: All Problems Arthritis / SNOMED CT 3811721 / Conf (more content not included)... [facility] Comment on above: Result Comment: Elec tronically Signed By: Deion Desouza DO.br\Date and Time Signed: 02/07/23 12:17 EDT Progress Note-Physician Patient: JANICE SMYTH Age: 57 years Sex: Male : 1965 Associated Diagnoses: None Author: Yann Alvarez DO Postoperative Information Procedure: R RA TKA Preoperative Diagnosis: R knee OA. Postoperative Diagnosis: same. Performed by: mahsa. Glue Mixer: Jayme Albarado. Specimens Removed: bone, soft tissue. Prosthesis: [place]. . Estimated Blood Loss: 0 ml. Complications: None. Anesthesia type: General, Spinal, add canal block. Normal [facility] Comment on above: Result Comment: Elec tronically Signed By: Yann Alvarez DO\.br\Date and Time Signed: 02/07/23 10:33 EDT Progress Note-Physician Patient: JANICE SMYTH Age: 57 years Sex: Male : 1965 Associated Diagnoses: None Author: Deion Desouza DO Preoperative Information Anesthesia history: Patient history: None. Family history+: None. Anesthesia results Informed consent: Signed by patient. Including risks, benefits, and alternatives related to the: Anesthetic plan, Postoperative pain management plan. Re-evaluation prior to induction: Deion Desouza DO. Health Status Allergies: Allergic Reactions (Selected) Severity Not Documented HYDROcodone- Itching., Allergies (1) Active Reaction HYDROcodone Itching Current medications: (Selected) Inpatient Medications Ordered Lactated Ringers IV Rosalina 1000 mL 1,000 mL: 1,000 mL, IV, 150 mL/hr, Routine, Start date 02/07/23 6:00:00 EDT, 6.7 hour(s), Total volume (mL): 1,000, 97 kg, 2.25, m2 cefazolin additive + Sodium Chloride 0.9% intravenous solution 50 mL: 2 gram = 1 EA, Powder-Inj, IV Piggyback, PREOP, Routine, Start date 02/07/23 6:00:00 EDT, 100 mL/hr, Infuse over 30 minute(s) Prescriptions Prescribed aspirin 81 mg Oral EC Tab: 81 mg = 1 tab(s), Oral, Daily, # 90 tab(s), Refills(s) 3, Pharmacy: [facility], 186, cm, 11/24/21 14:21:00 EDT, Height/Length Dosing, 98, kg, 11/24/21 14:21:00 EDT, Weight Dosing atorvastatin 80 mg Tab: 80 mg = 1 tab(s), Oral, Daily, # 90 tab(s), Refills(s) 3, Pharmacy: [facility], 186, cm, 10/20/20 11:38:00 EDT, Height/Length Dosing, 96, kg, 10/20/20 11:38:00 EDT, Weight Dosing nitroglycerin 0.4 mg sublingual Tab: 0.4 mg = 1 tab(s), SubLingual, q5min, PRN Chest pain, not to exceed 3 doses/15 min--if pain persists, seek medical attention, # 30 tab(s), Refills(s) 0, Pharmacy: [facility]/pharmacy #[id number], 185.4, cm, 02/21/20 20:48:00 EDT, Height/Length Dosing, 93.7, kg, 09... Documented Medications Documented Fish Oil: 500 mg, Oral, Daily, Refill(s) 0, Prophylaxis Multivitamins and Minerals: 1 tab, Oral, Daily, Refill(s) 0, Prophylaxis Rybelsus 7 mg oral tablet: 90 EA, TAKE 1 TAB AT LEAST 30MIN. BEFORE FIRST FOOD, DRINK, OR OTHER ORAL MEDS OF THE DAY, Refills(s) 0, Blood glucose Taltz Autoinjector: 80 mg, SubCutaneous, q4wk, Refills(s) 0, Other (see comment) Vitamin B6 100 mg Tab: 100 mg = 1 tab(s), Oral, Daily, Prophylaxis latanoprost Opth 0.005% Rosalina: 1 drop(s), OPTH, Once a day (at bedtime), Ocular congestion losartan 100 mg Tab: 100 mg = 1 tab(s), Oral, Daily, High blood pressure meloxicam 15 mg Tab: 15 mg = 1 tab(s), Oral, Daily, Inflammation metformin 500 mg Tab: 500 mg = 1 tab(s), Oral, BID, Refills(s) 0, Blood glucose paroxetine 10 mg Tab: 10 mg = 1 tab(s), Oral, Daily, Refills(s) 0, Depression, Home Medications (13) Active aspirin 81 mg Oral EC Tab 81 mg = 1 tab(s), Oral, Daily atorvastatin 80 mg Tab 80 mg = 1 tab(s), Oral, Daily Fish Oil 500 mg, Oral, Daily latanoprost Opth 0.005% Rosalina 1 drop(s), OPTH, Once a day (at bedtime) losartan 100 mg Tab 100 mg = 1 tab(s), Oral, Daily meloxicam 15 mg Tab 15 mg = 1 tab(s), Oral, Daily metformin 500 mg Tab 500 mg = 1 tab(s), Oral, BID Multivitamins and Minerals 1 tab, Oral, Daily nitroglycerin 0.4 mg sublingual Tab 0.4 mg = 1 tab(s), PRN, SubLingual, q5min paroxetine 10 mg Tab 10 mg = 1 tab(s), Oral, Daily Rybelsus 7 mg oral tablet Taltz Autoinjector 80 mg, SubCutaneous, q4wk Vitamin B6 100 mg Tab 100 mg = 1 tab(s), Oral, Daily , Medications (2) Active Scheduled: (1) ceFAZolin + Sodium Chloride 0.9% Minibag 50 mL 2 gram 1 EA, IV Piggyback, PREOP Continuous: (1) Lactated Ringers 1,000 mL 1,000 mL, IV, 150 mL/hr PRN: (0) Problem list: All Problems Arthritis / SNOMED CT 9137590 / Confirmed Coronary artery disease / SNOMED CT 64033756 / Confirmed Degenerative joint disease / SNOMED CT 3463434549 / Confirmed Depression / SNOMED CT 58487685 / Confirmed Glaucoma / SNOMED CT 44412346 / Confirmed High blood pressure / SNOMED CT 7967468056 / Confirmed Intermittent chest pain / SNOMED CT 73897051 / Confirmed Type 2 diabetes mellitus / SNOMED CT 659334370 / Confirmed Resolved: Diabetes type / SNOMED CT 8455484207 Resolved: STEMI - ST elevation myocardial infarction / SNOMED CT 7888899172, Active Problems (8) Arthritis Coronary artery disease Degenerative joint disease Depression Glaucoma High blood pressure Intermittent chest pain Type 2 diabetes mellitus Histories Past Medical History: Resolved STEMI - ST elevation myocardial infarction ([id number]): Onset on 12/26/2019 at 54 years. Resolved. Diabetes type (1774477367): Resolved. Family History: Diabetes mellitus type 1 Father Procedure history: Cardiac catheterisation ([id number]) on 02/24/2020 at 54 Years. PCI - Percutaneous coronary intervention ([id number]) on 12/26/2019 at 54 Years. 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 Comments: 12/26/2019 9:24 EDT - Gianfranco RN, Lesvia rotater cuff Fracture of (more content not included)... [facility] Comment on above: Result Comment: Elec tronically Signed By: Deion Desouza DO\.br\Date and Time Signed: 02/07/23 07:33 EDT XR Knee 1 or 2 Views [place]on 02-07-2023 XR Knee 1 or 2 Views Right Exam Date/Time: 02/07/2023 11:00 EDT Reason for Exam: Post-op evaluation;Other (please specify) Report IMPRESSION: RIGHT TOTAL KNEE REPLACEMENT. CLINICAL INFORMATION: Postop. COMMENT: 2 views. There is a right total knee prosthesis, in good position and alignment. There is gas in the soft tissues from the surgery. Ordering Provider: Yann Alvarez FINAL REPORT Dictated: 02/07/2023 11:08 am Edward Haskins M.D. Signed (Electronic Signature): 02/07/2023 11:08 am Signed by: Edward Haskins M.D. Transcribed by: NATALIE Technologist: GIOVANNI Technical Comments Radiation Dose: Ka,r in mGy = na DAP = na [facility] Heart and Vascular Office/Cl inic Noteon 02-05-2023 Heart and Vascular Office/Clinic Note Chief Complaint 1 week folloow up chest pain History of Present Illness Janice Smyth is a 57-year-old male patient last seen in the office by Dr. Dela Cruz for further evaluation of chronic chest discomfort. His past medical story positive for CAD with prior STEMI and PCI. He had ongoing chest discomfort since the PCI. Ultimately had a repeat left heart cath with Dr. Brink in January 2020 which showed widely patent stents. He had a stress echo in September 2020 which was negative study, low risk. He has no change in his symptoms rather persistency. For this Dr. Dela Cruz ordered echocardiogram and he is here to review results. Echo shows normal EF of 60 to 65%, no significant valve disease. He has no new cardiac complaints today. He denies any exertional chest discomfort dyspnea with exertion. No edema, orthopnea, PND, dizziness, near-syncope/syncope. Review of Systems PHQ Score Initial Depression Screen Score: 0 Constitutional: no fever, no chills, no weakness, no fatigue Respiratory: no shortness of breath, no cough, no orthopnea, no wheezing Cardiovascular: Chronic atypical chest pain, no palpitations, no edema Neuro:no dizziness no light headed no syncope Additional ROS info: Except as noted in the above Review of Systems and in the History of Present Illness all other systems have been reviewed and are negative or noncontributory. Physical Exam Vitals & Measurements HR: 61(Peripheral) BP: 132/78 SpO2: 98% HT: 73 in HT: 186 cm WT: 97.5 kg WT: 214.5 lb BMI: 28.18 General: alert, no acute distress Neck: Supple, noJVD nocarotid bruit Cardiovascular: regular rate and rhythm, no murmur normal peripheral perfusion Respiratory: Lungs CTA, respirations non labored Extremities:no edema Neurological: oriented x 4, LOC appropriate for age, sensation equal & normal bilaterally, speech normal Skin: Warm, dry, intact- no rash or concerning lesions Procedure [facility] - Dr Brink 02/24/20 CONCLUSIONS: 1. Widely patent left anterior descending stent. 2. Nonobstructive disease of his left circumflex which appears identical to his catheterization on 12/26/2019. 3. Diffuse moderate stenosis of his mid right coronary artery which appears identical to the lesion seen on 12/26/2019. We attempted to enhance this stenosis with 200 mcg of intracoronary nitroglycerin with minimal worsening. 4. Normal left ventricular size and function with an ejection fraction of 65%. [1] Cardiac Diagnostics (10/13/2020 10:47 EDT EC Stress Echo Complete w/ Contrast) PROCEDURE DETAILS: The patient was exercised on the [place] protocol for 8 minutes 32 seconds capturing 151 beats per minute which was 92% maximal age-predicted heart rate and 10.1 METS. The patient's blood pressure response was hypertensive at baseline and with stress. EKG at baseline was sinus bradycardia with left axis deviation and left ventricular hypertrophy. There was also poor R wave progression and a lateral T wave abnormality. During exercise, there were no significant EKG changes. This also was true for recovery. Normal left ventricular size and systolic function at baseline. With peak stress, the chamber size decreases appropriately and there are no new wall motion abnormalities. CONCLUSION: Negative stress echocardiogram. Low risk stress. [2] (01/09/2023 09:04 EDT Echo Transthoracic Complete) Interpretation Summary Ejection Fraction = 60-65%. Normal LV and RV. No significant valve disease. Normal estimated PA pressure. Normal diastolic filling pattern. [3] Assessment/Plan 1. Chest pain (R07.9: Chest pain, unspecified) Patient has had chronic atypical chest discomfort since his PCI. He had fairly recent repeat coronary angiogram revealing patent stenting and nonobstructive disease. He has stress echo in September 2020 which is negative for ischemia, low risk study. Most recently he had echocardiogram was essentially normal. 2. Coronary artery disease (I25.10: Atherosclerotic heart disease of [place] coronary artery without angina pectoris) CAD with prior PCI. He continues aspirin 81 mg daily, high intensity atorvastatin 80 mg daily, losartan 100 mg daily. He did not tolerate beta-castro due to fatigue and baseline bradycardia. Follow-up With When Contact Information Jose De Jesus ACOSTA, Matthew Gar [address] [place] [phone] Additional Instructions: 1 year Problem List/Past Medical History Ongoing Coronary artery disease Type 2 diabetes mellitus Historical Diabetes type STEMI - ST elevation myocardial infarction Procedure/Surgical History Cardiac catheterisation (02/24/2020), PCI - Percutaneous coronary intervention (12/26/2019), Shoulder joint instability (2005), Fracture of hand (2003), Tonsillectomy (2001), ACL - Anterior cruciate ligament deficiency (1978), Femur (1973), Coronary artery stent. Medications aspirin 81 mg Oral EC Tab, 81 mg= 1 tab(s), Oral, Daily, 3 refills atorvastatin 80 mg Tab, 80 mg= 1 tab(s), Oral, Da (more content not included)... [facility] Comment on above: Result Comment: Elec tronically Signed By: Estephania VILLANUEVA CNP\freda\Date and Time Signed: 02/05/23 15:28 EDT Consent for Procedure/Surger yon 02-03-2023 Consent for Procedure/Surgery [id number]:[address] [facility] [address] Lower Extremity w/o Contr ast [place] 01-18-2023 CT Lower Extremity w/o Contrast Right Exam Date/Time: 01/16/2023 09:02 EDT Reason for Exam: RIGHT KNEE OA Report IMPRESSION: ADVANCED DEGENERATIVE ARTHRITIC CHANGES RIGHT KNEE. CLINICAL HISTORY: RIGHT KNEE OA COMMENT: Unenhanced images were obtained. There are mild hypertrophic degenerative arthritic changes at the right hip joint. No fracture nor dislocation is noted at the right hip. There is severe narrowing of the medial knee joint compartment of the right knee, nearly bone on bone . There is some sclerosis of cortical bone on either side of the medial knee joint compartment. There is marginal hypertrophic spurring of bones at the medial and lateral knee joint compartments and at the patellofemoral joint. There is mild varus angulation at the right knee. There is a joint effusion, with fluid distention of the suprapatellar bursa. There is also some fluid in the prepatellar bursa. No fracture nor dislocation is noted at the right knee. The bones of the right ankle are unremarkable. All CT scans at this facility use dose modulation, iterative reconstruction, and/or weight based dosing when appropriate to reduce radiation dose to as low as reasonably achievable. Ordering Provider: Yann Alvarez FINAL REPORT Dictated: 01/18/2023 10:35 am Edward Haskins M.D. Signed (Electronic Signature): 01/18/2023 10:35 am Signed by: Edward Haskins M.D. Transcribed by: NATALIE Technologist: PRINCESS [facility] Insurance Correspondenceon 0 01-17-2023 Insurance Correspondence [id number]:127 [facility] ABO/Rh Retypeon 01-16-2023 ABO/Rh Retype Interp Positive Invalid Interpretation Cod e [facility] Comment on above: Performed By: #### 1 [id number] ####[facility] [id number] [id number] BLOOD BANKOrdered By: Heidi Srinivasan on 01-16-2023 ABO/Rh Retype Interp Positive Invalid Interpretation Cod e [facility] BB Subsection BUNon 01-16-2023 Urea nitrogen [Mass/Vol] 13 mg/dL Normal 10-16 [facility] Comment on above: Performed By: #### 7 [id number] #### [facility] [address] [place] [address] CBC w/Indiceson 01-16-2023 Erythrocyte distribution wid th (RBC) [Ratio] 12.9 % Normal 10.9-14.2 [facility] Comment on above: Performed By: #### 7 [id number] #### [facility] [address] [place] [address] Hematocrit (Bld) [Volume fraction] 40.7 % Normal 37.7-49.0 [facility] Comment on above: Performed By: #### 7 [id number] #### [facility] [address] [place] [address] Hemoglobin (Bld) [Mass/Vol] 14.2 g/dL Normal 13.5-17. 5 [facility] Comment on above: Performed By: #### 7 [id number] #### [facility] [address] [place] [address] MCH (RBC) [Entitic mass] 29.5 pg Normal 27.0-34.0 [facility] Comment on above: Performed By: #### 7 [id number] #### [facility] [address] [place] [address] MCHC (RBC) [Mass/Vol] 34.9 g/dL Normal 31.4-36.0 [facility] Comment on above: Performed By: #### 7 [id number] #### [facility] [address] [place] [address] MCV (RBC) [Entitic vol] 84.5 fL Normal 80.0-100.0 [facility] Comment on above: Performed By: #### 7 [id number] #### [facility] [address] [place] [address] Platelet mean volume (Bld) [Entitic vol] 8.0 fL Normal 6.4-10.8 [facility] Comment on above: Performed By: #### 7 [id number] #### [facility] [address] [place] [id number] Platelets (Bld) [#/Vol] 226.0 E9/L Normal 150.0-500.0 [facility] Comment on above: Performed By: #### 7 [id number] #### [facility] [address] [place] [address] RBC (Bld) [#/Vol] 4.8 E12/L Normal 4.3-5.9 [facility] Comment on above: Performed By: #### 7 [id number] #### [facility] [address] [place] [address] WBC corrected for nucl RBC A uto (Bld) [#/Vol] 4.7 E9/L Normal 4.0-11.0 [facility] Comment on above: Performed By: #### 7 [id number] #### [facility] [address] [place] [address] CHEMISTRYOrdered By: SYSTEM SYSTEM on 01-16-2023 Anion gap [Moles/Vol] 9 mmol/L Normal 6 - 16 mEq/L F [facility] Remisol Chloride [Moles/Vol] 104 mmol/L Normal 101 - 111 mmol/ L [facility] Remisol CO2 [Moles/Vol] 28 mmol/L Normal 21 - 31 mmol/L [facility] Creatinine [Mass/Vol] 0.9 mg/dL Normal 0.5 - 1.3 mg/d L [facility] Remisol GFR/1.73 sq M.predicted among non-blacks MDRD (S/P/Bld) [Vol rate/Area] 98 mL/min/1.73 m2 Normal >=59mL/min/1.73 m2 F [facility] Chem S Glucose [Mass/Vol] 174 mg/dL Normal 55 - 199 mg/dL [facility] Potassium [Moles/Vol] 4.4 mmol/L Normal 3.5 - 5.3 mmol /L [facility] Sodium [Moles/Vol] 137 mmol/L Normal 135 - 145 mmol/L [facility] Urea nitrogen [Mass/Vol] 13 mg/dL Normal 5 - 21 mg/d L [facility] Consent for Treatmenton 12-28 Consent for Treatment [id number]#[id number]:127 Normal [facility] Creatinineon 01-16-2023 Creatinine [Mass/Vol] 0.9 mg/dL Normal 0.5-1.3 [facility] Comment on above: Performed By: #### 7 [id number] #### [facility] [address] [place] [address] Glucoseon 01-16-2023 Glucose [Mass/Vol] 174 mg/dL Normal 55-199 [facility] Comment on above: Performed By: #### 7 [id number] #### [facility] [address] [place] [address] HEMATOLOGYOrdered By: Ulysses Butler on 01-16-2023 Erythrocyte distribution wid th (RBC) [Ratio] 12.9 % Normal 10.9 - 14.2 % [facility] HemeAutoSS Hematocrit (Bld) [Volume fraction] 40.7 % Normal 37.7 - 49.0 % FT [facility] Hemoglobin (Bld) [Mass/Vol] 14.2 g/dL Normal 13.5 - 1 7.5 gm/dL FT [facility] MCH (RBC) [Entitic mass] 29.5 pg Normal 27.0 - 34.0 pg FT [facility] MCHC (RBC) [Mass/Vol] 34.9 g/dL Normal 31.4 - 36.0 gm /dL FT [facility] MCV (RBC) [Entitic vol] 84.5 fL Normal 80.0 - 100.0 fL [facility] Platelet mean volume (Bld) [Entitic vol] 8.0 fL Normal 6.4 - 10.8 fL [facility] Platelets (Bld) [#/Vol] 226.0 E9/L Normal 150.0 - 500. 0 E9/L [facility] RBC (Bld) [#/Vol] 4.8 E12/L Normal 4.3 - 5.9 E12/L FT [facility] WBC corrected for nucl RBC A uto (Bld) [#/Vol] 4.7 E9/L Normal 4.0 - 11.0 E9/L FT [facility] Lyteson 01-16-2023 Anion gap [Moles/Vol] 9 mmol/L Normal 6-16 [facility] Comment on above: Performed By: #### 7 [id number] #### [facility] [address] [place] [address] Chloride [Moles/Vol] 104 mmol/L Normal 101-111 [facility] Comment on above: Performed By: #### 7 [id number] #### [facility] [address] [place] [address] CO2 [Moles/Vol] 28 mmol/L Normal 21-31 [facility] Comment on above: Performed By: #### 7 [id number] #### [facility] [address] [place] [address] Potassium [Moles/Vol] 4.4 mmol/L Normal 3.5-5.3 [facility] Comment on above: Performed By: #### 7 [id number] #### [facility] [address] [place] [address] Sodium [Moles/Vol] 137 mmol/L Normal 135-145 [facility] Comment on above: Performed By: #### 7 [id number] #### [facility] [address] [place] [address] Physician Orderon 01-16-2023 Physician Order [id number]:127 Normal [facility] UA With Cult Reflexon 2022 Bacteria LM Ql (Urine sed) TRACE Normal Trace [facility] Comment on above: Performed By: #### 1 [id number] ####[facility] [address] [place] [address] Bilirubin Ql (U) Negative Normal Negative [facility] Comment on above: Performed By: #### 1 [id number] ####[facility] [address] [place] [address] Clarity (U) CLEAR Normal Clear [facility] Comment on above: Performed By: #### 1 [id number] ####[facility] [address] [place] [address] Color (U) YELLOW Normal Yellow [facility] Comment on above: Performed By: #### 1 [id number] ####[place] [address] [place] [address] Epithelial cells.squamous LM .HPF (Urine sed) [#/Area] 0-2 Normal 0-2 [facility] Comment on above: Performed By: #### 1 [id number] ####[facility] [address] [place] [address] Glucose Test strip (U) [Mass/Vol] Negative Normal Negative [facility] Comment on above: Performed By: #### 1 [id number] ####[address] [address] Hemoglobin Ql (U) 2+ Abnormal Negative [facility] Comment on above: Performed By: #### 1 [id number] ####[address] [address] Ketones (U) [Mass/Vol] Negative Normal Negative [facility] Comment on above: Performed By: #### 1 [id number] ####[address] [address] [place].plasma/[place].RBC ( Bld) [Mass ratio] 4-20 Normal 0-3 [facility] Comment on above: Performed By: #### 1 [id number] ####[facility] [address] [place] [address] Mucus Ql (Urine sed) TRACE Normal [facility] Comment on above: Performed By: #### 1 [id number] ####[place] [address] [address] [place] [address] Nitrite Ql (U) Negative Normal Negative [facility] Comment on above: Performed By: #### 1 [id number] ####[address] [address] pH (U) 6.0 [pH] Invalid Interpretation Code 5.0-9.0 [facility] Comment on above: Performed By: #### 1 [id number] ####[facility] [address] [place] [address] Protein (U) [Mass/Vol] Negative Normal Negative [facility] Comment on above: Performed By: #### 1 [id number] ####[facility] [address] [place] [address] Specific gravity (U) [Rel density] 1.015 Invalid Interpretation Code 1.005-1.030 [facility] Comment on above: Performed By: #### 1 [id number] ####[facility] [address] [place] [address] Type of Urine collection method Clean Catch Normal [facility] Comment on above: Performed By: #### 1 [id number] ####[address] [address] Urobilinogen Qn (U) 0.2 {Juan'U}/dL Normal 0.0-1.0 [facility] Comment on above: Performed By: #### 1 [id number] ####[facility] [address] [place] [address] WBC Auto Ql (U) Negative Normal Negative [facility] Comment on above: Performed By: #### 1 [id number] ####[facility] [address] [place] [address] WBC LM.HPF (Urine sed) [#/Area] 0-5 Normal 0-5 [facility] Comment on above: Performed By: #### 1 [id number] ####[facility] [address] [place] [address] URINALYSISOrdered By: John Dumont on 01-16-2023 Bacteria LM Ql (Urine sed) Trace /HPF Normal Trace/HPF [facility] UA Auto SS Bilirubin Ql (U) Negative (01/16/23 7:55 AM) Normal Negative [facility] UA Auto SS Clarity (U) Clear (01/16/23 7:55 AM) Normal Clear [facility] UA Auto SS Color (U) Yellow (01/16/23 7:55 AM) Normal Yellow [facility] UA Auto SS Epithelial cells.squamous LM.HPF (Urine sed) [#/Area] 0-2 /HPF Normal 0-2/HPF [facility] UA Auto SS Glucose Test strip (U) [Mass/Vol] Negative (01/16/23 7:55 AM) Normal Negative [facility] UA Auto SS Hemoglobin Ql (U) 2+ *ABN* (01/16/23 7:55 AM) Invalid Interpretation Code Negative [facility] UA Auto SS Ketones (U) [Mass/Vol] Negative (01/16/23 7:55 AM) Normal Negative [facility] UA Auto SS [place].plasma/Lithi um.RBC (Bld) [Mass ratio] 4-20 /HPF Normal 0-3/HPF [facility] UA Auto SS Mucus Ql (Urine sed) Trace (01/16/23 7:55 AM) Normal [facility] UA Auto SS Nitrite Ql (U) Negative (01/16/23 7:55 AM) Normal Negative [facility] UA Auto SS pH (U) 6.0 *NA* (01/16/23 7:55 AM) Invalid Interpretation Code 5.0 - 9.0 [facility] UA Auto SS Protein (U) [Mass/Vol] Negative (01/16/23 7:55 AM) Normal Negative [facility] UA Auto SS Specific gravity (U) [Rel density] 1.015 *NA* (01/16/23 7:55 AM) Invalid Interpretation Code 1.005 - 1.030 [facility] UA Auto SS UA Spec Desc Clean Catch (01/16/23 7:55 AM) Normal [facility] UA Auto SS Urobilinogen Qn (U) 0.9159591 {Juan'U}/dL Normal 0.0 - 1.0 EU/dL [facility] UA Auto SS WBC Auto Ql (U) Negative (01/16/23 7:55 AM) Normal Negative [facility]A Auto SS WBC LM.HPF (Urine sed) [#/Area] 0-5 /HPF Normal 0-5/HPF [facility] UA Auto SS XR Chest 2 Viewson 3 XR Chest 2 Views Exam Date/Time: 01/16/2023 08:20 EDT Reason for Exam: P.A.T. Report IMPRESSION: NO EVIDENCE OF ACTIVE CHEST DISEASE. CLINICAL HISTORY: P.A.T.. COMPARISON: 02/21/2012. COMMENT: The heart is normal in size. The mediastinum is unremarkable. The lungs appear clear. No infiltration nor pleural effusion is evident. No significant change is noted when compared to the prior exam. Ordering Provider: Engel Ahmad FINAL REPORT Dictated: 01/16/2023 1:27 pm Edward Haskins M.D. Signed (Electronic Signature): 01/16/2023 1:27 pm Signed by: Edward Haskins M.D. Transcribed by: NATALIE Technologist: ALONDRA Technical Comments Radiation Dose: Ka,r in mGy = na DAP = na Normal [facility] eGFRon 01-16-2023 GFR/1.73 sq M.predicted elvin g non-blacks MDRD (S/P/Bld) [Vol rate/Area] 98 mL/min/1.73 m2 Normal >=59 [facility] Comment on above: Order Comment: Order placed by EKM rule. [email or web address]_[facility] Result Comment: Technology Support Analyst juliana kidney disease could be indicated at eGFR's of less than 60 mL/min/1.73m2. Kidney failure is indicated at less than 15 mL/min/1.73m2. Performed By: #### 7 [id number] #### [facility] [address] [place] [address] Consent for Treatmenton 12-27 Consent for Treatment [id number]#1.00CD:127 Normal [facility] Physician Orderon 01-12-2023 Physician Order [id number]#1.00CD:127 Normal [facility] Consent for Treatmenton 12-27 Consent for Treatment [id number]#1.00CD:127 Normal [facility] Heart and Vascular Office/Cl inic Noteon 01-09-2023 Heart and Vascular Office/Clinic Note Chief Complaint 1 year .f/u History of Present Illness Janice Smyth is a 57-year old male presents today for a follow-up evaluation. He was last seen in 10/2022 for intermittent chest pain. At that time, he was doing well. We refilled his prescriptions 1 year ago. We recommended compression stockings for lower extremity edema. He has been experiencing intermittent angina. He denies taking nitroglycerin. He has thought about taking it once, but he did not take it. He is still experiencing lower extremity edema. Review of Systems Constitutional: lower extremity edema, no fever, no sweats, no weakness Skin: no rash, no lesions, no bruising/petechiae ENMT: no sore throat, no congestion, no hoarseness Respiratory: no shortness of breath, no cough, no orthopnea, no wheezing Cardiovascular: intermittent chest pain, no palpitations, no edema Gastrointestinal: no nausea, no vomiting, no diarrhea, no GI bleeding Genitourinary: no anuria/oliguria no hematuria Musculoskeletal: no back pain, no trauma Neurologic: no headache, no dizziness, no numbness, no weakness Psychiatric: no sleeping problems, no irritability, no anxiety/depression. Heme/Lymph: no bleeding tendency, no bruising tendency Allergy/Immunologic: no recurrent infections, no impaired immunity Additional ROS info: Except as noted in the above Review of Systems and in the History of Present Illness all other systems have been reviewed and are negative or noncontributory Physical Exam Vitals & Measurements HR: 68(Peripheral) BP: 136/70 SpO2: 95% HT: 73 in HT: 186 cm WT: 97.7 kg WT: 214.94 lb BMI: 28.24 General: alert, no acute distress Skin: warm, dry intact Head: atraumatic, normocephalic Neck: trachea midline, no JVD, no bruit Eye: normal conjunctiva, sclera clear ENMT: oral mucosa moist Cardiovascular: regular rate and rhythm, intermittent murmur, normal peripheral perfusion Respiratory: lungs CTA, respirations non labored Chest wall: no deformity. Gastrointestinal: soft, non-distended, no tenderness, no guarding. Back: no tenderness, normal ROM, normal alignment. Extremities: no edema, no deformity, no trauma Neurological: oriented x 4, LOC appropriate for age, sensation equal & normal bilaterally, speech normal Psychiatric: cooperative, affect appropriate for age, normal judgement, normal psychiatric thoughts. Assessment/Plan Chest pain (R07.9: Chest pain, unspecified) Janice Smyth is a 57-year-old male with a history of chronic chest discomfort. I will order an echocardiogram. Follow up with Estephania Villanueva CNP. Portions of this record may have been created with voice recognition artificial intelligence software, specifically [employer], [email or web address] and or [employer]. Substitutions may have occurred voice recognition and artificial intelligence software. ATTESTATION: Documentation services were performed after patient or guardian consented to allow [facility] to record this visit. RNIA event specialist product demonstrator and provider reviewed before signing. RINA: Malathi Keenanaga Follow-up No qualifying data available Problem List/Past Medical History Ongoing Coronary artery disease Type 2 diabetes mellitus Historical Diabetes type STEMI - ST elevation myocardial infarction Procedure/Surgical History Cardiac catheterisation (02/24/2020), PCI - Percutaneous coronary intervention (12/26/2019), Shoulder joint instability (2005), Fracture of hand (2003), Tonsillectomy (2001), ACL - Anterior cruciate ligament deficiency (1978), Femur (1973), Coronary artery stent. Medications aspirin 81 mg Oral EC Tab, 81 mg= 1 tab(s), Oral, Daily, 3 refills Ativan 0.5 mg Tab, 0.5 mg= 1 tab(s), Oral, TID, PRN atorvastatin 80 mg Tab, 80 mg= 1 tab(s), Oral, Daily, 3 refills Fish Oil, Oral lysine 500 mg oral tablet, 500 mg= 1 tab(s), Oral, Daily metformin 500 mg oral tablet metformin 500 mg Tab, 500 mg= 1 tab(s), Oral, BID Multivitamins and Minerals nitroglycerin 0.4 mg sublingual Tab, 0.4 mg= 1 tab(s), SubLingual, q5min, PRN Non-Formulary Medication Non-Formulary Medication paroxetine 10 mg Tab, 10 mg= 1 tab(s), Oral, Daily Protonix 40 mg Tab-DR, 40 mg= 1 tab(s), Oral, Daily Rybelsus 7 mg oral tablet Taltz Autoinjector Taltz Autoinjector 80 mg/mL subcutaneous solution Vitamin C, 1000 mg, Oral, Daily Vitamin D, 19303 International_Unit, Oral, Daily Allergies HYDROcodone (Itching) Social History Alcohol - Low Risk, 02/21/2020 Current, 1-2 times per month, 02/21/2020 Current, Daily, 12/26/2019 Substance Abuse - Denies Substance Abuse, 02/21/2020 Tobacco - Denies Tobacco Use, 02/21/2020 Former smoker, quit more than 30 days ago Tobacco Use:. Cigarettes, 12/30/2022 Family History Diabetes mellitus type 1: Father.Negative: Mother, Sister and Brother. Immunizations Vaccine Date Status Comments SARS-CoV-2 (COVID-19) mRNA BNT-162b2 vax 08/28/2020 Given Prophylaxis SARS-CoV-2 (COV (more content not included)... [facility] Comment on above: Result Comment: Elec tronically Signed By: Jose De Jesus ACOSTA, Matthew Gar\.br\Date and Time Signed: 01/09/23 03:44 EDT\.br\Electronically Co-Signed By: Malathi Perez\.br\Date and Time Co-Signed: 12/30/22 19:01 EDT Insurance Correspondenceon 0 01-04-2023 Insurance Correspondence [id number]:127 [facility] Consent for Treatmenton Consent for Treatment [id number]:127 [facility] Physician Orderon 12-30-2022 Physician Order [id number]#1.00CD:127 [facility] Basic Metabolic Panelon 07-28 Anion gap [Moles/Vol] 17 mmol/L Normal 12-20 [facility] Comment on above: Result Comment: Effe ctive 06/03/2019 reference range changed. Performed By: #### B SOREN, LIPD #### [facility] [address] [place], [place] [id number] Calcium [Mass/Vol] 9.3 mg/dL Normal 8.6-10.2 Ryan coy [employer] Professor Comment on above: Performed By: #### B MP, LIPD #### [facility] [address] [place] [id number] Chloride [Moles/Vol] 101 mmol/L Normal 98-107 [facility] Comment on above: Performed By: #### B SOREN LIPD #### [facility] [address] [place] [id number] CO2 [Moles/Vol] 25 mmol/L Normal 20-31 [facility] Comment on above: Performed By: #### B SROEN, LIPD #### [facility] [address] [place] [id number] Creatinine [Mass/Vol] 0.9 mg/dL Normal 0.7-1.4 [facility] Comment on above: Performed By: #### B SOREN LIPD #### [facility] [address] [place], [place] [id number] eGFRAA 108 mL/min/1.73m2 Normal >60 [facility] Comment on above: Performed By: #### B SOREN LIPD #### [facility] [address] [place], [place] [id number] eGFRNAA 89 mL/min/1.73m2 Normal >60 [facility] Comment on above: Performed By: #### Jayme DOTY LIPD #### [facility] [address] [place], [place] [id number] Glucose [Mass/Vol] 277 mg/dL High 65-[address] [facility] Specialist Comment on above: Result Comment: For FASTING Glucose --- ADA reference ranges: Normal 65-99 mg/dl Prediabetes 100-125 Diabetes >/= 126 Performed By: #### Jayme DOTY, LIPD #### [facility] [address] [place], [place] [id number] Potassium [Moles/Vol] 4.5 mmol/L Normal 3.5-5.5 [facility] Comment on above: Performed By: #### B SOREN LIPD #### [facility] [address] [place], [place] [id number] Sodium [Moles/Vol] 138 mmol/L Normal 135-[address] [facility] Specialist Comment on above: Performed By: #### B SOREN, LIPD #### [facility] [address] [place], [place] [id number] Urea nitrogen [Mass/Vol] 16 mg/dL Normal 7-25 [employer] Professor Comment on above: Performed By: #### B SOREN LIPD #### [facility] [address] [place], [place] [id number] Hemoglobin A1Con 08-18-2021 EAG 271.87 Normal [facility] Specialist Comment on above: Performed By: #### A 1C #### [facility] [address] [place], [place] [id number] HbA1c (Bld) [Mass fraction] 11.1 % High 4.0-6.0 [facility] Specialist Comment on above: Performed By: #### A 1C #### [facility] [address] [place], [place] [id number] Lipid Panelon 08-18-2021 Cholesterol [Mass/Vol] 123 mg/dL Low 125-200 [facility] System[facility] Comment on above: Result Comment: Low risk < 200mg/dL Borderline risk 201-239 mg/dl High risk > or equal to 240 Performed By: #### B SOREN, LIPD #### [facility] [address] [place], [place] [id number] Cholesterol in HDL [Mass/Vol] 42 mg/dL Normal >40 [facility] Specialist Comment on above: Result Comment: High Cardiovascular Risk HDL <40 mg/dL Low Cardiovascular Risk HDL > or equal to 60 mg/dl Performed By: #### B SOREN LIPD #### [facility] [address] [place], [place] [id number] Cholesterol in LDL [Mass/Vol] 52 mg/dL Normal [facility] Specialist Comment on above: Result Comment: LDL ATP III CLASSIFICATION LDL less than 100 mg/dl Optimal LDL 100-129 mg/dl Near or above optimal LDL 130-159 Borderline high LDL 160-189 High LDL greater than 189 mg/dl Very High Performed By: #### B SOREN LIPD #### [facility] [address] [facility] [id number] Cholesterol in VLDL [Mass/Vol] 29 mg/dL Normal [facility] Specialist Comment on above: Performed By: #### B SOREN LIPD #### [facility] [address] [facility] [place] [id number] Cholesterol.total/Cholestero l in HDL [Mass ratio] 3 {ratio} Normal [facility] Specialist Comment on above: Performed By: #### B KAMILA DOTY #### [facility] [address] [place], [place] [id number] Triglyceride [Mass/Vol] 145 mg/dL Normal 30-150 [facility] Comment on above: Result Comment: TRIG ATPIII CLASSIFICATIONS TRIG less than 150 mg/dl Normal TRIG 150-199 mg/dl Borderline High TRIG 200-500 mg/dl High TRIG greather than 500 mg/dl Very High Performed By: #### B KAMILA DOTY #### [facility] [address] [place], [place] [id number] Microalbumin (with Creat)on 08-18-2021 mALB 4.0 mg/dL Normal [facility] Comment on above: Result Comment: mALB reference range not established. Performed By: #### m ALBC #### [facility] [address] [place], [place] [id number] mALB/Creat Ratio 26.5 MCG/MG Normal [facility] Comment on above: Result Comment: The ADA (Diabetes Care 26:S94-S98, 2003) defines abnormalities in Albumin excretion as follows: Category Result (MCG/MG Creatinine) Normal <30 Microalbuminuria 30-299 Clinical Albuminuria > or = 300 Performed By: #### m ALBC #### [facility] [address] [place], [place] [id number] UCREA 151 mg/dL Normal 39-259 [facility] Comment on above: Performed By: #### m ALBC #### [facility] [address] [place], [place] [id number] QUANTIFERON TB GOLD PLUS (NO N-INC)on 05-19-2021 Comment Incubation performed. Normal [facility] Comment on above: Performed By: #### Q NTTBG #### [facility] [address] [place], [place] [address] Dr. Bryce Kaur Criteria Comment Normal [facility] Comment on above: Result Comment: The QuantiFERON-TB Gold Plus result is determined by subtracting the Nil value from either TB antigen (Ag) tube. The mitogen tube serves as a control for the test. Performed By: #### Q NTTBG #### [facility] [address] [place] [address] Dr. Bryce Kaur Mitogen Value >10.00 Normal [facility] Comment on above: Performed By: #### Q NTTBG #### [facility] [address] [place] [address] Dr. Bryce Kaur Nill Value 0.04 IU/mL Normal [facility] Comment on above: Performed By: #### Q NTTBG #### [facility] [address] [place] [address] Dr. Bryce Kaur Quantiferon Gold Plus Negative Normal Negative [facility] Comment on above: Result Comment: Chem iluminescence immunoassay methodology Performed By: #### Q NTTBG #### [facility] [address] [place] [address] Dr. Bryce Kaur TB1 Ag Value 0.04 IU/mL Normal [facility] Comment on above: Performed By: #### Q NTTBG #### [facility] [address] [place] [address] Dr. Bryce Kaur TB2 Ag Value 0.06 IU/mL Normal [facility] Comment on above: Performed By: #### Q NTTBG #### [facility] [address] [place] [address] Dr. Bryce Kaur CBC AUTO DIFFon 05-15-2021 BASO # 0.0 103/ul Normal 0.0-0.1 [facility] Comment on above: Performed By: #### C BC #### [facility] [address] [place] [address] Dr. Bryce Kaur Basophils/100 WBC (Bld) 0.4 % Normal 0.2-2.0 [facility] Comment on above: Performed By: #### C BC #### [facility] [address] [place] [address] Dr. Bryce Kaur EO # 0.2 103/ul Normal 0.0-0.7 [facility] Comment on above: Performed By: #### C BC #### [facility] [address] [place] [address] Dr. Bryce Kaur Eosinophils/100 WBC (Bld) 3.5 % Normal 0.9-7.0 [facility] Comment on above: Performed By: #### C BC #### [facility] [address] [place] [address] Dr. Bryce Kaur Erythrocyte distribution wid th (RBC) [Ratio] 11.9 % Normal 11.0-15.[address] [facility] Comment on above: Performed By: #### C BC #### [facility] [address] [place] [address] Dr. Bryce Kaur Hematocrit (Bld) [Volume fraction] 42.3 % Normal 4 2.0-54.0 [facility] Comment on above: Performed By: #### C BC #### [facility] [address] [place] [address] Dr. Bryce Kaur Hemoglobin (Bld) [Mass/Vol] 15.0 g/dL Normal 14.0-18. 0 [facility] Comment on above: Performed By: #### C BC #### [facility] [address] [place] [address] Dr. Bryce Kaur IG # 0.01 10e3/ul Normal 0.00-0.03 [facility] Comment on above: Performed By: #### C BC #### [facility] [address] [place] [address] Dr. Bryce Kaur IG % 0.2 % Normal 0.0-0.5 [facility] Comment on above: Performed By: #### C BC #### [facility] [address] [place] [address] Dr. Bryce Kaur LYMPH # 1.6 103/ul Normal 1.2-3.8 [facility] Comment on above: Performed By: #### C BC #### [facility] [address] [place] [address] Dr. Bryce Kaur Lymphocytes/100 WBC (Bld) 33.9 % Normal 20.5-60.0 [facility] Comment on above: Performed By: #### C BC #### [facility] [address] [place] [address] Dr. Bryce Kaur MANUAL DIFF REQ NO Normal [facility] Comment on above: Performed By: #### C BC #### [facility] [address] [place] [address] Dr. Bryce Kaur MCH (RBC) [Entitic mass] 29.2 pg Normal 25.9-34.0 [facility] Comment on above: Performed By: #### C BC #### [facility] [address] [place] [address] Dr. Bryce Kaur MCHC (RBC) [Mass/Vol] 35.5 g/dL Critically high 29.9-35.2 [facility] Comment on above: Performed By: #### C BC #### [facility] [address] [place] [address] Dr. Bryce Kaur MCV (RBC) [Entitic vol] 82.3 fL Normal 80.0-94.0 [facility] Comment on above: Performed By: #### C BC #### [facility] [address] [place] [address] Dr. Bryce Kaur MONO # 0.4 103/ul Normal 0.3-0.8 [facility] Comment on above: Performed By: #### C BC #### [facility] [address] [place] [address] Dr. Bryce Kaur Monocytes/100 WBC (Bld) 8.0 % Normal 1.7-12.0 [facility] Comment on above: Performed By: #### C BC #### [facility] [address] [place] [address] Dr. Bryce Kaur NEUT # 2.5 103/ul Normal 1.4-6.5 [facility] Comment on above: Performed By: #### C BC #### [facility] [address] [place] [address] Dr. Bryce Kaur Neutrophils/100 WBC (Bld) 54.0 % Normal 43.0-75.0 [facility] Comment on above: Performed By: #### C BC #### [facility] [address] [place] [address] Dr. Bryce Kaur Platelet mean volume (Bld) [ Entitic vol] 10.0 fL Normal 9.5-13.5 [facility] Comment on above: Performed By: #### C BC #### [facility] [address] [place] [address] Dr. Bryce Kaur PLT 203 103/ul Normal 150-450 [facility] Comment on above: Performed By: #### C BC #### [facility] [address] [address] [address] Bryce Kaur RBC 5.14 106/ul Normal 4.70-6.10 [facility] Comment on above: Performed By: #### C BC #### [facility] [address] [place] [address] Dr. Bryce Kaur WBC 4.6 103/ul Normal 4.0-11.0 [facility] Comment on above: Performed By: #### C BC #### [facility] [address] [place] [address] Dr. Bryce Kaur LIPID PROFILEon 05-15-2021 CHOL-HDL RATIO NORM SEE BELOW Normal [facility] Comment on above: Result Comment: 3.3 - 4.4 LOW RISK 4.4 - 7.1 AVERAGE RISK 7.1 - 11.0 MODERATE RISK >11.0 HIGH RISK Performed By: #### L IPID, BMP, LIVER #### [facility] [address] [place] [address] Dr. Bryce Kaur Cholesterol [Mass/Vol] 114 mg/dL Normal <=200 [facility] Comment on above: Performed By: #### L IPID, BMP, LIVER #### [facility] [address] [place] [address] Dr. Bryce Kaur Cholesterol in HDL [Mass/Vol] 41 mg/dL Normal [facility] Comment on above: Performed By: #### L IPID, BMP, LIVER #### [facility] [address] [place] [address] Dr. Bryce Kaur Cholesterol in LDL [Mass/Vol] 46.0 mg/dL Normal [facility] Comment on above: Performed By: #### L IPID, BMP, LIVER #### [facility] [address] [address] [address] Bryce Kaur Cholesterol.total/Cholestero l in HDL [Mass ratio] 2.8 {ratio} Normal [facility] Comment on above: Performed By: #### L IPID, BMP, LIVER #### [facility] [address] [address] [address] Bryce Kaur HDL NORMAL > or = 60 mg/dl - LO W CARDIOVASCULAR RISK <40 mg/dl - HIGH CARDIOVASCULAR RISK Normal [facility] Comment on above: Performed By: #### L IPID, BMP, LIVER #### [facility] [address] [place] [address] Dr. Bryce Kaur LDL CALC NORMAL SEE BELOW Normal [facility] Comment on above: Result Comment: <100 mg/dl OPTIMAL 100 - 129 mg/dl NEAR OR ABOVE OPTIMAL 130 - 159 mg/dl BORDERLINE HIGH 160 - 189 mg/dl HIGH >190 mg/dl VERY HIGH Performed By: #### L IPID, BMP, LIVER #### [facility] [address] [place] [address] Dr. Bryce Kaur Triglyceride [Mass/Vol] 135 mg/dL Normal <=150 [facility] Comment on above: Performed By: #### L IPID, BMP, LIVER #### [facility] [address] [place] [address] Dr. Bryce Kaur VLDL CALC 27.0 mg/dL Normal [facility] Comment on above: Performed By: #### L IPID, BMP, LIVER #### [facility] [address] [address] [address] Bryce Kaur LIVER PROFILEon 05-15-2021 Albumin [Mass/Vol] 3.8 g/dL Normal 3.5-5.0 [facility] Comment on above: Performed By: #### L IPID, BMP, LIVER #### [facility] [address] [place] [address] Dr. Bryce Kaur Albumin/Globulin [Mass ratio] 1.4 {ratio} Normal [facility] Comment on above: Performed By: #### L IPID, BMP, LIVER #### [facility] [address] [address] [address] Bryce Kaur ALP [Catalytic activity/Vol] 83 U/L Normal 38-126 [facility] Comment on above: Performed By: #### L IPID, BMP, LIVER #### [facility] [address] [address] [address] Bryce Kaur ALT [Catalytic activity/Vol] 59 U/L Normal 21-72 [facility] Comment on above: Performed By: #### L IPID, BMP, LIVER #### [facility] [address] [place] [address] Dr. Bryce Kaur AST [Catalytic activity/Vol] 23 U/L Normal 17-59 [facility] Comment on above: Performed By: #### L IPID, BMP, LIVER #### [facility] [address] [place] [address] Dr. Bryce Kaur BILI, CONJUGATED 0.2 mg/dL Normal 0.0-0.3 [facility] Comment on above: Performed By: #### L IPID, BMP, LIVER #### [facility] [address] [place] [address] Dr. Bryce Kaur Bilirubin [Mass/Vol] 0.9 mg/dL Normal 0.2-1.3 [facility] Comment on above: Performed By: #### L IPID, BMP, LIVER #### [facility] [address] [place] [address] Dr. Bryce Kaur Globulin (S) [Mass/Vol] 2.7 g/dL Normal T [facility] Comment on above: Performed By: #### L IPID, BMP, LIVER #### [facility] [address] [place] [address] Dr. Bryce Kaur Protein [Mass/Vol] 6.5 g/dL Normal 6.1-8.2 [facility] Comment on above: Performed By: #### L IPID, BMP, LIVER #### [facility] [address] [place] [address] Dr. Bryce Kaur PROF CHEM 8 (BAS METB)on Anion gap [Moles/Vol] 9.9 mmol/L Normal [facility] Comment on above: Performed By: #### L IPID, BMP, LIVER #### [facility] [address] [place] [address] Dr. Bryce Kaur Calcium [Mass/Vol] 9.5 mg/dL Normal 8.4-10.2 [facility] Comment on above: Performed By: #### L IPID, BMP, LIVER #### [facility] [address] [address] [address] Bryce Kaur Chloride [Moles/Vol] 98 mmol/L Normal 98-107 [facility] Comment on above: Performed By: #### L IPID, BMP, LIVER #### [facility] [address] [place] [address] Dr. Bryce Kaur CO2 [Moles/Vol] 33.2 mmol/L Critically high 22.0-30.0 [facility] Comment on above: Performed By: #### L IPID, BMP, LIVER #### [facility] [address] [place] [address] Dr. Bryce Kaur Creatinine [Mass/Vol] 0.87 mg/dL Normal 0.66-1.25 [facility] Comment on above: Performed By: #### L IPID, BMP, LIVER #### [facility] [address] [place] [address] Dr. Bryce Kaur EGFR-AF MONTSERRATIAN >60 Normal >=60 [facility] Comment on above: Performed By: #### L IPID, BMP, LIVER #### [facility] [address] [place] [address] Dr. Bryce Kaur EGFR-NON AF MONTSERRATIAN >60 Normal >=60 [facility] Comment on above: Performed By: #### L IPID, BMP, LIVER #### [facility] [address] [place] [address] Dr. Bryce Kaur Glucose [Mass/Vol] 255 mg/dL Critically high 74-106 [facility] Comment on above: Performed By: #### L IPID, BMP, LIVER #### [facility] [address] [address] [address] Bryce Kaur Potassium [Moles/Vol] 4.1 mmol/L Normal 3.4-5.0 [facility] Comment on above: Performed By: #### L IPID, BMP, LIVER #### [facility] [address] [address] [address] Bryce Kaur Sodium [Moles/Vol] 137 mmol/L Normal 137-145 [facility] Comment on above: Performed By: #### L IPID, BMP, LIVER #### [facility] [address] [address] [address] Bryce Kaur Urea nitrogen [Mass/Vol] 16.0 mg/dL Normal 9.0-20.0 [facility] Comment on above: Performed By: #### L IPID, BMP, LIVER #### [facility] [address] [address] [address] Bryce Kaur Urea nitrogen/Creatinine [Mass ratio] 18.4 mg/mg Normal [facility] Comment on above: Performed By: #### L IPID, BMP, LIVER #### [facility] [address] [address] [address] Bryce Kaur Complete Pulmonary Functiono n 09-07-2020 Complete Pulmonary Function [facility] [place] [address] Pulmonary Function Signed Patient: Janice Smyth MR#: [id number] : 1965 Acct:[id number] Age/Sex: 54 / M ADM Date: 09/03/20 Loc: RT Room: Type: [facility] Attending Dr: Antonio Kitchen DO Ordering Provider: Antonio Kitchen DO Date of Service: 09/03/20 Accession #: Copies to: Antonio Kitchen DO The patient was evaluated for some exertional dyspnea and mild asthma. He is a reformed smoker. The maintenance technician 3rd shift reports data is acceptable and reproducible. The patient's forced vital capacity is 4.4 L, which is 83% predicted. His FEV1 is 3.5 L, which is 86% predicted. The FEV1/forced vital capacity ratio is 80%. The midflow values are estimated at 3.2 L, which is 92% predicted. Following challenge with aerosolized albuterol, the patient showed a 21% increase in the midflow value with a 4% improvement in the FEV1. IMPRESSION: This patient has just borderline restriction as noted by a moderate reduction in the forced vital capacity. The ratio appears satisfactory. However, following bronchodilator, there was a reversible component to the midflow numbers suggesting an asthmatic component. No studies available for comparison at this time. Transcribed By: BENITO 09/08/20 1035 Dictated By: Antonio Kitchen DO 09/07/20 1707 Signed By: 10/06/20 1708 [facility] Vital Signs Date Time Vital Sign Value Performing Clinician Anabell solitario 05-08-2023 11:32-0500 Blood Pressure Location Sean COPE [facility] 05-08-2023 11:32-0500 Diastolic blood pressure 83 mm[Hg] Sean COPE [facility] 05-08-2023 11:32-0500 Heart rate 94 /min Sean COPE [facility] 05-08-2023 11:32-0500 Respiratory rate 16 /min Sean COPE [facility] 05-08-2023 11:32-0500 Systolic blood pressure 139 mm[Hg] Sean COPE [facility] 05-01-2023 15:04-0500 Hourly Rounding Danica Florencelorna [facility] 05-01-2023 15:04-0500 Promise to Return Danica Antonio [facility] 05-01-2023 14:57-0500 Hourly Rounding Danicacurly Florencelorna [facility] 05-01-2023 14:57-0500 Promise to Return Danica Antonio [facility] 05-01-2023 14:55-0500 Hourly Rounding [facility] 05-01-2023 13:39-0500 Promise to Return [facility] 05-01-2023 11:57-0500 Heart rate 83 /min [facility] 05-01-2023 11:57-0500 SaO2% (BldA) [Mass fraction] 96 % [facility] 05-01-2023 11:54-0500 Body temperature 98.24 [degF] [facility] 05-01-2023 11:54-0500 Diastolic blood pressure 85 mm[Hg] [facility] 05-01-2023 11:54-0500 Mean blood pressure 105 mm[Hg] [facility] 05-01-2023 11:54-0500 Systolic blood pressure 146 mm[Hg] [facility] 05-01-2023 07:28-0500 Heart rate 74 /min [facility] 05-01-2023 07:28-0500 SaO2% (BldA) [Mass fraction] 96 % [facility] 05-01-2023 07:27-0500 Diastolic blood pressure 86 mm[Hg] [facility] 05-01-2023 07:27-0500 Mean blood pressure 113 mm[Hg] [facility] 05-01-2023 07:27-0500 Systolic blood pressure 167 mm[Hg] [facility] 05-01-2023 07:27-0500 Body temperature 98.42 [degF] [facility] 05-01-2023 04:30-0500 Blood Pressure Location [facility] 05-01-2023 04:30-0500 Body temperature 98.96 [degF] [facility] 05-01-2023 04:30-0500 Diastolic blood pressure 81 mm[Hg] [facility] 05-01-2023 04:30-0500 Mean blood pressure 105 mm[Hg] [facility] 05-01-2023 04:30-0500 SaO2% (BldA) [Mass fraction] 94 % [facility] 05-01-2023 04:30-0500 Systolic blood pressure 153 mm[Hg] [facility] 05-01-2023 03:30-0500 Blood Pressure Location [facility] 05-01-2023 03:30-0500 Body temperature 100.94 [degF] [facility] 05-01-2023 03:30-0500 Mean blood pressure 119 mm[Hg] [facility] 04-30-2023 22:45-0500 Blood Pressure Location [facility] 04-30-2023 19:41-0500 Heart rate 85 /min [facility] 04-30-2023 19:40-0500 Mean blood pressure 119 mm[Hg] [facility] 04-30-2023 19:40-0500 Body temperature 98.06 [degF] [facility] 04-30-2023 03:05-0500 Body temperature 98.06 [degF] [facility] 04-30-2023 03:05-0500 Respiratory rate 19 /min [facility] 04-30-2023 01:00-0500 Mean blood pressure 96 mm[Hg] [facility] 04-30-2023 00:40-0500 Respiratory rate 18 /min [facility] 04-29-2023 23:40-0500 Heart rate 76 /min [facility] 04-29-2023 17:00-0500 pulse [facility] 04-29-2023 16:50-0500 Heart rate 72 /min [facility] 04-28-2023 23:48-0500 Heart rate 90 /min [facility] 04-28-2023 23:30-0500 Respiratory rate 10 /min [facility] 04-28-2023 23:00-0500 Respiratory rate 18 /min [facility] 04-28-2023 22:04-0500 Respiratory rate 19 /min [facility] 04-28-2023 20:40-0500 gluc 327 mg/dL [facility] 04-28-2023 20:40-0500 gluc [facility] 04-28-2023 20:38-0500 Heart rate 98 /min [facility] 03-27-2023 09:12-0400 Blood Pressure Location Sean COPE [facility] 03-27-2023 09:12-0400 Diastolic blood pressure 76 mm[Hg] Sean COPE [facility] 03-27-2023 09:12-0400 Heart rate 71 /min Sean COPE [facility] 03-27-2023 09:12-0400 Respiratory rate 16 /min Sean COPE [facility] 03-27-2023 09:12-0400 Systolic blood pressure 139 mm[Hg] Sean COPE [facility] 02-07-2023 15:00-0400 Diastolic blood pressure 80 mm[Hg] Yann Alvarez [facility] 02-07-2023 15:00-0400 Heart rate 86 /min Yann Pocos [facility] 02-07-2023 15:00-0400 SaO2% (BldA) [Mass fraction] 98 % Yann Pocos [facility] 02-07-2023 15:00-0400 Systolic blood pressure 150 mm[Hg] Yann Pocos [facility] 02-07-2023 14:01-0400 Heart rate 84 /min Yann Pocos [facility] 02-07-2023 14:01-0400 SaO2% (BldA) [Mass fraction] 97 % Yann Pocos [facility] 02-07-2023 14:01-0400 Respiratory rate 18 /min Yann Pocos [facility] 02-07-2023 14:01-0400 Blood Pressure Location Yann Pocos [facility] 02-07-2023 14:01-0400 Diastolic blood pressure 86 mm[Hg] Yann Pocos [facility] 02-07-2023 14:01-0400 Mean blood pressure 106 mm[Hg] Yann Pocos [facility] 02-07-2023 14:01-0400 Systolic blood pressure 147 mm[Hg] Yann Pocos [facility] 02-07-2023 11:47-0400 Heart rate 74 /min Yann Pocos [facility] 02-07-2023 11:47-0400 SaO2% (BldA) [Mass fraction] 97 % Yann Pocos [facility] 02-07-2023 11:45-0400 Respiratory rate 20 /min Yann Pocos [facility] 02-07-2023 11:45-0400 Body temperature 97.34 [degF] Yann Pocos [facility] 02-07-2023 11:44-0400 Blood Pressure Location Yann Pocos [facility] 02-07-2023 11:44-0400 Diastolic blood pressure 88 mm[Hg] Yann Pocos [facility] 02-07-2023 11:44-0400 Mean blood pressure 111 mm[Hg] Yann Pocos [facility] 02-07-2023 11:44-0400 Systolic blood pressure 157 mm[Hg] Yann Pocos [facility] 02-07-2023 11:35-0400 Blood Pressure Location Yann Pocos [facility] 02-07-2023 11:35-0400 Body temperature 98.42 [degF] Yann Pocos [facility] 02-07-2023 11:35-0400 Mean blood pressure 106 mm[Hg] Yann Pocos [facility] 02-07-2023 11:35-0400 Respiratory rate 12 /min Yann Pocos [facility] 02-07-2023 11:25-0400 Mean blood pressure 118 mm[Hg] Yann Pocos [facility] 02-07-2023 11:25-0400 Respiratory rate 10 /min Yann Pocos [facility] 02-07-2023 11:15-0400 Mean blood pressure 117 mm[Hg] Yann Pocos [facility] 02-07-2023 11:15-0400 Respiratory rate 12 /min Yann Pocos [facility] 02-07-2023 10:42-0400 Body temperature 98.42 [degF] Yann Pocos [facility] 02-07-2023 06:24-0400 Mean blood pressure 111 mm[Hg] Yann Pocos [facility] 02-07-2023 06:21-0400 Heart rate 66 /min Yann Pocos [facility] 01-16-2023 07:52-0400 Diastolic blood pressure 92 mm[Hg] Yann Pocos [facility] 01-16-2023 07:52-0400 Heart rate 75 /min Yann Pocos [facility] 01-16-2023 07:52-0400 Mean blood pressure 116 mm[Hg] Yann Pocos [facility] 01-16-2023 07:52-0400 Systolic blood pressure 163 mm[Hg] Yann Pocos [facility] 01-16-2023 07:51-0400 Heart rate 66 /min Yann Pocos [facility] 01-16-2023 07:51-0400 SaO2% (BldA) [Mass fraction] 97 % Yann Pocos [facility] 01-16-2023 07:50-0400 Body temperature 98.24 [degF] Yann Pocos [facility] 01-16-2023 07:50-0400 Blood Pressure Location Yann Pocos [facility] 01-16-2023 07:50-0400 Diastolic blood pressure 97 mm[Hg] Yann Pocos [facility] 01-16-2023 07:50-0400 Mean blood pressure 118 mm[Hg] Yann Pocos [facility] 01-16-2023 07:50-0400 Systolic blood pressure 161 mm[Hg] Yann Alvarez [facility] 01-16-2023 07:50-0400 Respiratory rate 16 /min Yann Alvarez [facility] 01-12-2023 10:46-0400 Diastolic blood pressure 92 mm[Hg] Estephaniaricki VILLANUEVA [facility] 01-12-2023 10:46-0400 Mean blood pressure 117 mm[Hg] Estephaniaricki VILLANUEVA [facility] 01-12-2023 10:46-0400 Systolic blood pressure 168 mm[Hg] Estephaniaricki DONOVANG [facility] 01-12-2023 10:29-0400 Blood Pressure Location Estephaniaricki VILLANUEVA [facility] 01-12-2023 10:29-0400 Diastolic blood pressure 90 mm[Hg] Estephaniaricki VILLANUEVA [facility] 01-12-2023 10:29-0400 Heart rate 61 /min Estephaniaricki DONOVANG [facility] 01-12-2023 10:29-0400 SaO2% (BldA) [Mass fraction] 98 % Estephaniaricki DONOVANG [facility] 01-12-2023 10:29-0400 Systolic blood pressure 168 mm[Hg] Estephaniaricki DONOVANG [facility] 11-24-2021 14:25-0400 Diastolic blood pressure 80 mm[Hg] Matthew Dela Cruz [facility] 11-24-2021 14:25-0400 Mean blood pressure 106 mm[Hg] Matthew Dela Cruz [facility] 11-24-2021 14:25-0400 Systolic blood pressure 159 mm[Hg] Matthew Dela Cruz [facility] 11-24-2021 14:15-0400 Blood Pressure Location Matthew Dela Cruz [facility] 11-24-2021 14:15-0400 Diastolic blood pressure 81 mm[Hg] Matthew Dela Cruz [facility] 11-24-2021 14:15-0400 Heart rate 66 /min Matthew Dela Cruz [facility] 11-24-2021 14:15-0400 Respiratory rate 18 /min Matthew Dela Cruz [facility] 11-24-2021 14:15-0400 SaO2% (BldA) [Mass fraction] 100 % Matthew Dela Cruz [facility] 11-24-2021 14:15-0400 Systolic blood pressure 153 mm[Hg] Matthew Dela Cruz [facility] Encounters Encounter Date Encounter Type Care Provider Facility Start: 06-12-2023 ambulatory Sean Ledezma ty:[place] Start: 05-08-2023 End: 05-09-2023 ambulatory Sean COPE Facility:[facility] Start: 05-08-2023 End: 05-08-2023 Patient encounter procedure Sean COPE [facility] Start: 04-29-2023 End: 05-01-2023 Evaluation and management of inpatient Edward Castillo Facility:[facility] Start: 04-28-2023 End: 05-01-2023 Evaluation and management of inpatient Danica Antonio [facility] Start: 04-27-2023 End: 04-28-2023 ambulatory Sean COPE Facility:CD:[id number] Start: 04-24-2023 End: 04-24-2023 ambulatory MATHEUS MCKINNON Not Available Start: 04-18-2023 End: 04-19-2023 ambulatory MATHEUS MCKINNON Not Available Start: 04-13-2023 End: 04-13-2023 ambulatory TEDDY POCOS Not Available Start: 04-12-2023 End: 04-12-2023 ambulatory TEDDY POCOS Not Available Start: 04-11-2023 End: 04-11-2023 ambulatory TEDDY POCOS Not Available Start: 03-27-2023 End: 03-28-2023 ambulatory ANTONIO KITCHEN Facility:[facility] Start: 03-27-2023 End: 03-27-2023 Patient encounter procedure Sean COPE [facility] Start: 03-08-2023 End: 03-09-2023 ambulatory Teddy Pocos Facility:[facility] Start: 03-08-2023 End: 03-08-2023 Patient encounter procedure Teddy Pocos [facility] Start: 02-07-2023 End: 02-07-2023 ambulatory Teddy Pocos Facility:[facility] Start: 02-07-2023 End: 02-07-2023 Admission to same day surgery center Teddy Pocos [facility] Start: 01-16-2023 End: 01-17-2023 ambulatory Teddy Pocos Facility:[facility] Start: 01-16-2023 End: 01-16-2023 Patient encounter procedure Teddy Pocos [facility] Start: 01-12-2023 End: 01-13-2023 ambulatory Estephania VILLANUEVA Facility:[facility] Start: 01-12-2023 End: 01-12-2023 Patient encounter procedure Estephania VILLANUEVA [facility] Start: 01-09-2023 End: 01-10-2023 ambulatory Matthew Dela Cruz Facility:[facility] Start: 01-09-2023 End: 01-09-2023 Patient encounter procedure Matthew Dela Cruz [facility] Start: 01-06-2023 ambulatory Yann Alvarez Facility:[facility] Start: 12-30-2022 End: 12-31-2022 ambulatory Matthew Dela Cruz Facility:[facility] Start: 11-24-2021 End: 11-24-2021 Patient encounter procedure Matthew Dela Cruz [facility] Start: 05-15-2021 End: 05-16-[address] RANJEET CORNELL Facility: Procedures Date Procedure Procedure Detail Performing Clinician Start: 04-27-2023 Extracorporeal shockwave lithotripsy of calculus of kidney Seandelfino COPE Start: 02-07-2023 Total knee replacement Yann Alvarez Start: 02-24-2020 Cardiac catheterization Matthew Tonichadd joyner Start: 12-26-2019 Coronary artery stent (physical object) Sean COPE Comment on above: x1 Start: 12-26-2019 Percutaneous coronary intervention Matthew Dela Cruz Start: 01-03-2019 Excision of malignant skin tumor Sean COPE Start: 07-26-2018 Transurethral cystoscopy Sean COPE Start: 09-22-2017 Radiofrequency ablation Sean COPE Start: 07-12-2017 Laser ablation of prostate Sean COPE Start: 06-08-2017 Cystourethroscopy wi th dilation of urethral stricture Seandelfino COPE Start: 05-29-2005 Shoulder joint unstable (finding) Matthew Dela Cruz Comment on above: rotater cuff Start: 05-29-2003 Fracture of hand (disorder) Matthew Dela Cruz Start: 05-29-2001 Tonsillectomy Matthew Jessica hess Start: 05-29-1978 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) Matthew Dela Cruz Start: 05-29-1973 Bone structure of fe mur (body structure) Matthew Dela Cruz Comment on above: tumor removed femur Coronary artery stent (physical object) Matthew Dela Cruz Comment on above: x1 Immunizations Immunization Date Immunization Notes Care Provider Fa cili 03-29-2022 pneumococcal 20-valent conjugate vaccine Sean COPE [facility] 03-04-2022 influenza virus vaccine, unspecified formulation Sean COPE [facility] 03-09-2021 influenza virus vaccine, unspecified formulation Sean COPE [facility] 03-09-2021 SARS-CoV-2 (COVID-19 ) mRNA BNT-162b2 vax Sean COPE [facility] 08-28-2020 COVID-19, mRNA, LNP-S, PF, 30 mcg/0.3 mL dose Matthew Dela Cruz [facility] Comment on above: Reason for Medicatio n: Prophylaxis 08-07-2020 COVID-19, mRNA, LNP- S, PF, 30 mcg/0.3 mL dose Matthew Dela Cruz [facility] Comment on above: Reason for Medicatio n: Prophylaxis 03-02-2020 influenza virus vaccine, unspecified formulation Sean COPE [facility] Payers Date Payer Category Payer Unknown [id number] 2.16.84 [id number] 1965 Unknown [id number] 2.16.840 .1.946247.3.579.2.9 1963 Unknown [id number] 2.16.840 .1.286770.3.579.2.9 1963 Unknown [id number] 2.16.840 .1.445707.3.579.2.1258 1963 Unknown [id number] 2.16.840 .1.416313.3.579.2.1258 1963 Unknown [id number] 2.16.840 .1.371206.3.579.2.1258 1963 Unknown [id number] 2.16.840 .1.456261.3.579.2.1258 1963 Unknown [id number] 2.16.840. 1.909947.3.579.2.1258 1963 Unknown [id number] 2.16.840. 1.729583.3.579.2.1258 1963 Unknown [id number] 2.16.840. 1.888177.3.579.2.1258 1963 Unknown [id number] 2.16.840. 1.047967.3.579.2.1258 1963 Unknown [id number] 2.16.8 40.1.062993.3.579.2. 1963 Unknown [id number] 2.16.8 40.1.913945.3.579.2. 1963 Unknown [id number] 2.16.8 40.1.886616.3.579.2. 1963 Unknown [id number] 2.16.8 40.1.053658.3.579.2.72 1963 Unknown [id number] 2.16.8 40.1.078458.3.579.2. 1963 Unknown [id number] 2.16.8 40.1.197772.3.579.2.727 1963 Unknown [id number] 2.16.8 40.1.426298.3.579.2.727 1963 Unknown [id number] 2.16.8 40.1.476281.3.579.2.727 1963 Unknown [id number] 2.16.8 40.1.799202.3.579.2.727 1963 Unknown [id number] 2.16.8 40.1.404366.3.579.2.727 1963 Unknown [id number] 2.16.8 40.1.723500.3.579.2.727 1963 Unknown [id number] 2.16.8 40.1.574716.3.579.2.727 1959 Unknown [id number] Social History Date Type Detail Facility Tobacco Cigarettes [facility] Comment on above: quit 29 yrs ago-[facility] ed 1-1.5ppd Sex Assigned At Male [facility] Start: 12-30-2022 End: 05-08-2023 Tobacco smoking status Ex-smoker (finding) [facility] Comment on above: quit 29 yrs ago-[facility] ed 1-1.5ppd Tobacco smoking status Never [facility] [place] Comment on above: quit 29 yrs ago-[facility] ed 1-1.5ppd Medical Equipment Procedure Code Equipment Code Equipment Origin al Text Equipment Identifier Dates PCI Unknown 12/25 Non Biological Other FDA Start: 12-26-2019 PCI Unknown 12/25 Non Biological Other FDA Start: 12-26-2019 PCI Unknown 12/25 Non Biological Other FDA Start: 12-26-2019 PCI Unknown 12/25 Non Biological Other FDA Start: 12-26-2019 KNEE TOTAL ROBOT ARTHROPLASTY Lorenzoos Yann ROTH 02/07/23 Unknown Knee R FDA Start: 02-07-2023 KNEE TOTAL ROBOT ARTHROPLASTY PocYann reyna DO 02/07/23 Unknown Knee R FDA Start: 02-07-2023 KNEE TOTAL ROBOT ARTHROPLASTY Pocos Yann ROTH 02/07/23 Unknown Knee R FDA Start: 02-07-2023 KNEE TOTAL ROBOT ARTHROPLASTY Pocos DO, Yann Grant 02/07/23 Unknown Knee R FDA Start: 02-07-2023 PCI Unknown 12/25 Non Biological Other FDA Start: 12-26-2019 KNEE TOTAL ROBOT ARTHROPLASTY Pocos DO, Yann Grant 02/07/23 Unknown Knee R FDA Start: 02-07-2023 KNEE TOTAL ROBOT ARTHROPLASTY Pocos DO, Yann Grant 02/07/23 Unknown Knee R FDA Start: 02-07-2023 KNEE TOTAL ROBOT ARTHROPLASTY Pocos DO, Yann Grant 02/07/23 Unknown Knee R FDA Start: 02-07-2023 KNEE TOTAL ROBOT ARTHROPLASTY Pocos DO, Yann Grant 02/07/23 Unknown Knee R FDA Start: 02-07-2023 PCI Unknown 12/25 Non Biological Other FDA Start: 12-26-2019 KNEE TOTAL ROBOT ARTHROPLASTY Pocos DO, Yann Grant 02/07/23 Unknown Knee R FDA Start: 02-07-2023 KNEE TOTAL ROBOT ARTHROPLASTY Pocos DO, Yann Grant 02/07/23 Unknown Knee R FDA Start: 02-07-2023 KNEE TOTAL ROBOT ARTHROPLASTY Pocos DO, Yann Grant 02/07/23 Unknown Knee R FDA Start: 02-07-2023 KNEE TOTAL ROBOT ARTHROPLASTY Pocos DO, Yann Grant 02/07/23 Unknown Knee R FDA Start: 02-07-2023 PCI Unknown 12/25 Non Biological Other FDA Start: 12-26-2019 KNEE TOTAL ROBOT ARTHROPLASTY Pocos DO, Yann Grant 02/07/23 Unknown Knee R FDA Start: 02-07-2023 KNEE TOTAL ROBOT ARTHROPLASTY Pocos DO, Yann Grant 02/07/23 Unknown Knee R FDA Start: 02-07-2023 KNEE TOTAL ROBOT ARTHROPLASTY Pocos DO, Yann Grant 02/07/23 Unknown Knee R FDA Start: 02-07-2023 KNEE TOTAL ROBOT ARTHROPLASTY Pocos DO, Yann Grant 02/07/23 Unknown Knee R FDA Start: 02-07-2023 PCI Unknown 12/25 Non Biological Other FDA Start: 12-26-2019 KNEE TOTAL ROBOT ARTHROPLASTY Pocos DO, Yann Grant 02/07/23 Unknown Knee R FDA Start: 02-07-2023 KNEE TOTAL ROBOT ARTHROPLASTY Pocos DO, Teddy 02/07/23 Unknown Knee R FDA Start: 02-07-2023 KNEE TOTAL ROBOT ARTHROPLASTY Pocos DO, Yann Grant 02/07/23 Unknown Knee R FDA Start: 02-07-2023 KNEE TOTAL ROBOT ARTHROPLASTY Yann Alvarez DO 02/07/23 Unknown Knee R FDA Start: 02-07-2023 PCI Unknown 12/25 Non Biological Other FDA Start: 12-26-2019 Functional Status Date Assessment Result Facility 05-08-2023 Functional Status N/A [facility] 04-29-2023 Functional Status No [facility] 04-28-2023 Functional Status [facility] 03-27-2023 Functional Status N/A [facility] 01-16-2023 Functional Status No [facility] 01-12-2023 Functional Status No [facility] 11-24-2021 Functional Status N/A [facility] Clinical Notes 01-10-2023 to 05-08-2023 Note Date & Type Note Facility 05-08-2023 Hospital Discharge instructions Patient Education 05/08/2023 12:13:08 Kidney Stones, [id number] Kidney Stones Kidney stones are rock-like masses that form inside of the kidneys. Kidneys are organs that make pee (urine). A kidney stone may move into other parts of the urinary tract, including: The tubes that connect the kidneys to the bladder (ureters). The bladder. The tube that carries urine out of the body (urethra). Kidney stones can cause very bad pain and can block the flow of pee. The stone usually leaves your body (passes) through your pee. You may need to have a doctor take out the stone. What are the causes? Kidney stones may be caused by: A condition in which certain glands make too much parathyroid hormone (primary hyperparathyroidism). A buildup of a type of crystals in the bladder made of a chemical called uric acid. The body makes uric acid when you eat certain foods. Narrowing (stricture) of one or both of the ureters. A kidney blockage that you were born with. Past surgery on the kidney or the ureters, such as gastric bypass surgery. What increases the risk? You are more likely to develop this condition if: You have had a kidney stone in the past. You have a family history of kidney stones. You do not drink enough water. You eat a diet that is high in protein, salt (sodium), or sugar. You are overweight or very overweight (obese). What are the signs or symptoms? Symptoms of a kidney stone may include: Pain in the side of the belly, right below the ribs (flank pain). Pain usually spreads (radiates) to the groin. Needing to pee often or right away (urgently). Pain when going pee (urinating). Blood in your pee (hematuria). Feeling like you may vomit (nauseous). Vomiting. Fever and chills. How is this treated? Treatment depends on the size, location, and makeup of the kidney stones. The stones will often pass out of the body through peeing. You may need to: Drink more fluid to help pass the stone. In some cases, you may be given fluids through an IV tube put into one of your veins at the hospital. Take medicine for pain. Make changes in your diet to help keep kidney stones from coming back. Sometimes, medical procedures are needed to remove a kidney stone. This may involve: A procedure to break up kidney stones using a beam of light (laser) or shock waves. Surgery to remove the kidney stones. Follow these instructions at home: Medicines Take jard-pdj-ysmicoo and prescription medicines only as told by your doctor. Ask your doctor if the medicine prescribed to you requires you to avoid driving or using heavy machinery. Eating and drinking Drink enough fluid to keep your pee pale yellow. You may be told to drink at least 8 10 glasses of water each day. This will help you pass the stone. If told by your doctor, change your diet. This may include: ?Limiting how much salt you eat. ?Eating more fruits and vegetables. ?Limiting how much meat, poultry, fish, and eggs you eat. Follow instructions from your doctor about eating or drinking restrictions. General instructions Collect pee samples as told by your doctor. You may need to collect a pee sample: ?24 hours after a stone comes out. ?8 12 weeks after a stone comes out, and every 6 12 months after that. Strain your pee every time you pee (urinate), for as long as told. Use the strainer that your doctor recommends. Do not throw out the stone. Keep it so that it can be tested by your doctor. Keep all follow-up visits as told by your doctor. This is important. You may need follow-up tests. How is this prevented? To prevent another kidney stone: Drink enough fluid to keep your pee pale yellow. This is the best way to prevent kidney stones. Eat healthy foods. Avoid certain foods as told by your doctor. You may be told to eat less protein. Stay at a healthy weight. Where to find more information National Kidney Foundation (NKF): www.kidney.org [employer] (UCF): www.urologyhealth.org Contact a doctor if: You have pain that gets worse or does not get better with medicine. Get help right away if: You have a fever or chills. You get very bad pain. You get new pain in your belly (abdomen). You pass out (faint). You cannot pee. Summary Kidney stones are rock-like masses that form inside of the kidneys. Kidney stones can cause very bad pain and can block the flow of pee. The stones will often pass out of the body through peeing. Drink enough fluid to keep your pee pale yellow. This information is not intended to replace advice given to you by your health care provider. Make sure you discuss any questions you have with your health care provider. Document Revised: 01/17/2022 Document Reviewed: 01/17/2022 [employer] Patient Education 2022 [employer]. Follow Up Care 05/01/2023 10:55:44 With:PRISCA ACOSTA, Sean Stovall, URL Address: [facility] [address], [place] [address]- [phone] When:Within 1 Month(s) [facility] 05-02-2023 Note Admission and Discha rge Information Admit Date/Time:04/28/2023 23:03 Admitting Physician - Danica Antonio MD Admitting Diagnoses: Discharge Diagnoses 1. Chest pain, 04/28/2023 2. Perinephric hematoma, 04/28/2023 3. Retroperitoneal hematoma, 04/28/2023 4. LUIS MIGUEL (acute kidney injury), 04/29/2023 5. Acute blood loss anemia, 04/28/2023 6. Constipation, 04/29/2023 7. Coronary artery disease, 04/28/2023 8. HTN (hypertension), 04/28/2023 9. Kidney stones, 04/28/2023 10. Type 2 diabetes mellitus, 04/28/2023 11. Anxiety, 04/28/2023 Chest pain, 04/28/2023 Dizziness, 04/28/2023 Shortness of breath, 04/28/2023 Procedure History Total knee arthroplasty (02/07/2023), Cardiac catheterisation (02/24/2020), Coronary artery stent (12/26/2019), PCI - Percutaneous coronary intervention (12/26/2019), Excision of malignant skin tumor (01/03/2019), Cystoscopy (07/26/2018), Radiofrequency ablation (09/22/2017), Laser ablation of prostate (07/12/2017), Cystourethroscopy with dilation of urethral stricture (06/08/2017), Shoulder joint instability (2005), Fracture of hand (2003), Tonsillectomy (2001), ACL - Anterior cruciate ligament deficiency (1978), Femur (1973). Hospital Course 57-year-old male admitted to the hospital secondary to Chest pain. ACS was ruled out with negative troponin levels x 4 normal ECG. Patient underwent a CT of the abdomen pelvis on 04/28 which showed hypodense collection of 3.2 cm inch thickness surrounding the right kidney suspicious for subscapular hematoma. There is also extension into the right kidney retroperitoneum and right paracolic gutter. No active extravasation within normal limits of portal venous phase. There was also bilateral renal calculi largest on the right at 5 mm. No hydronephrosis. Was secondary to recent lithotripsy performed by Dr. Cope on at [facility] 04/28. Pt was admitted to the hospital for observation and underwent a repeat CT scan on 04/30 which showed circumferential hyperdense collection surrounding the right kidney measuring 3.3 cm in thickness. Subscapular hematoma unchanged from prior. There is extension into the right retroperitoneum inferiorly in the small month paracolic gutter. Pt was seen by Dr. Cope who felt that a perinephric hematoma was stable by CT scan. Patient was treated with pain medications. Patient did require hemoglobin checks frequently. His hemoglobin did drop to 1.3 due to acute blood loss anemia secondary to acute hematoma. And required 2 units of packed red blood cells during admission to stabilize patient. Patient hemoglobin stabilized at 10.2. Also with LUIS MIGUEL on admission secondary to above. Was treated with IV fluids with resolution of LUIS MIGUEL. Patient complained of constipation was provided with Dulcolax suppository in which he did expel stool and resolved constipation . Patient also complained of lower abdominal pain and flank pain secondary to admitting hematoma. He was provided increase in pain medications during hospitalization and was discharged with oxycodone by Dr. Cope. Patient to follow-up on 05/04 for hemoglobin and hematocrit which Dr. Cope will follow. Urology has signed off and will follow with patient as outpatient. Today on exam patient is doing well. Vitals and labs are stable. Physical Exam General: NAD Skin: warm, dry, no rash Head: AT/NC Neck: Trachea midline, supple Eye: normal conjunctiva, sclera clear Cardiovascular: regular rate and rhythm, S1S2, normal peripheral perfusion Respiratory: Lungs CTA anteriorly, respirations non labored, breath sounds shallow as deep breathing aggravates his pain Chest wall: no deformity. no TTP Gastrointestinal: tender to touch on palpation to entire lower abd. mainly right side. Slightly firm. Extremities: no deformity, no edema Neurological: oriented, LOC appropriate for age, no focal deficits, normal speech Psychiatric: cooperative, affect appropriate for age, good eye contact Laboratory Results ABO/Rh (04/29/2023) ABO/Rh - A POS Antibody Screen (04/29/2023) ABSC Gel Interp - Negative Automated Diff (04/30/2023) Neutro Auto - 61.6 % Lymph Auto - 26.8 % Dodge Auto - 8.9 % Eos Auto - 2.3 % Basophil Auto - 0.4 % Neutro Absolute - 3.1 E9/L Lymph Absolute - 1.3 E9/L Dodge Absolute - 0.4 E9/L Eos Absolute - 0.1 E9/L Basophil Absolute - 0.0 E9/L BMP (04/30/2023) Glucose Lvl - 172 mg/dL BUN - 14 mg/dL Creatinine - 1.0 mg/dL BUN/Creat Ratio - 14 Sodium Lvl - 140 mmol/L Potassium Lvl - 3.9 mmol/L Chloride - 105 mmol/L CO2 - 31 mmol/L AGAP - 8 mEq/L Calcium Lvl - 8.8 mg/dL Capillary Glucose POC (05/01/2023) Glucose Cap - 280 mg/dL POC Device SN - [id number] POC User ID - [id number] POC Username - JOHANA SPAIN CBC w/ Auto Diff (04/30/2023) WBC - 5.0 E9/L RBC - 3.3 E12/L Hgb - 9.4 gm/dL Hct - 27.2 % MCV - 82.5 fL MCH - 28.5 pg MCHC - 34.5 gm/dL RDW - 13.7 % Platelet - 156.0 E9/L MPV - 8.1 fL Crossmatch (04/29/2023) Computer XM I (more content not included)... [facility] Comment on above: Result Comment: Elec tronically Signed By: Huyen DE LOS SANTOS\.br\Date and Time Signed: 05/02/23 14:47 EST\.br\Electronically Co- Signed By: Edward Castillo DO\.br\Date and Time Co-Signed: 05/02/23 15:22 EST 05-01-2023 Hospital Discharge instructions Patient Education 05/01/2023 15:15:04 Retroperitoneal Bleeding Retroperitoneal Bleeding Retroperitoneal bleeding happens when the blood vessels or organs in the back part of your abdomen bleed into the space between your abdomen and your back (retroperitoneal space). This space contains: Your kidneys. The glands that are on top of your kidneys (adrenal glands). The tubes that drain urine from your kidneys (ureters). The large blood vessel that carries blood to your lower body (aorta). Some parts of your digestive tract. The bleeding can be slow or fast. Bleeding into the retroperitoneal space is a rare but life-threatening condition. Get help right away for any signs of retroperitoneal bleeding. What are the causes? This condition may be caused by: Injury (trauma) to your pelvic area, abdomen, or back. Surgery or procedures in the retroperitoneal space. Other causes include: Tumors. Swelling through a weakened wall of a blood vessel (aneurysm). This can rupture and cause bleeding. Ovarian cysts. Bleeding from your spleen. Inflammation of the pancreas (pancreatitis). Sometimes, the cause is not known (idiopathic). What increases the risk? Retroperitoneal bleeding is more likely to develop in people who: Take medicines to prevent blood clots (anticoagulants). Have a blood clotting disorder. Have high blood pressure. Are on a machine that cleans blood because the kidneys have failed (dialysis). What are the signs or symptoms? Signs and symptoms usually occur suddenly and include: Pain in the abdomen, back, groin, or side (flank). Pain when pressing on the abdomen, back, or flank. Bruising in the abdomen, side, or back. Pain, numbness, or tingling in your leg (neuropathy). Blood in the urine. Very low blood pressure, which can cause shock. Symptoms of shock include: ?Dizziness or light-headedness. ?Fainting. ?Rapid heartbeat (tachycardia). ?Trouble breathing. ?Cold, clammy skin. How is this diagnosed? This condition may be diagnosed based on your symptoms and your medical history. It is important to find the cause of the bleeding. Your health care provider will do a physical exam. You may also have other tests, including: Blood tests to check for low blood counts (anemia) or blood loss. Imaging studies, such as: ?CT scan. You may have dye injected into a blood vessel to help locate the source of the bleeding (CT angiography). ?Ultrasound. ?MRI. How is this treated? The goal of treatment is to stop the bleeding. Treatment may include: Giving you fluids through an IV to get your blood pressure back into a normal range. Medicines or blood products to reverse anticoagulant medicines, if you take them. Giving you blood from a donor (transfusion). Observation to see if the bleeding stops on its own. Blocking the bleeding with a small plug (embolization). This is done by placing a long tube (catheter) through your blood vessel and into the site of the bleeding. Doing exploratory surgery to find the bleeding and stop it. This may be done using an operating scope (laparoscopy) or as an open surgery (laparotomy). Follow these instructions at home: Activity Rest as told by your health care provider. Do not participate in any activity that takes a lot of effort until your health care provider says that it is safe. Do not lift anything that is heavier than 10 lb (4.5 kg), or the limit that you are told, until your health care provider says that it is safe. General instructions Take ynyc-ilz-ylgyfpe and prescription medicines only as told by your health care provider. Do not use any products that contain nicotine or tobacco, such as cigarettes and e-cigarettes. These may delay healing after an injury. If you need help quitting, ask your health care provider. Follow instructions from your health care provider about eating or drinking restrictions. Keep all follow-up visits as told by your health care provider. This is important. Get help right away if you have: New or worsening pain in your abdomen, back, or side (flank). Chest pain. Difficulty breathing. Dizziness or passing out. These symptoms may represent a serious problem that is an emergency. Do not wait to see if the symptoms will go away. Get medical help right away. Call your local emergency services (911 in the [place] Do not drive yourself to the hospital. Summary Retroperitoneal bleeding happens when the blood vessels or organs in the back part of your abdomen bleed into the space between your abdomen and your back (retroperitoneal space). Symptoms of this condition may include pain in the abdomen, back, or side, dizziness or light-headedness, a rapid heart rate, blood in the urine, or low blood pressure. The goal of treatment is to stop the bleeding. Do not lift anything that is heavier than 10 lb (4.5 kg), or the limit that you are told, until your health care provider says that it is safe. Get help right away if you have chest pain or new or worsening pain in your abdomen, back, or side (flank). This information is not intended to replace advice given to you by your health care provider. Make sure you discuss any questions you have with your health care provider. Document Revised: 07/02/2021 Document Reviewed: 07/02/2021 [employer] Patient Education 2022 [employer]. Follow Up Care 04/28/2023 20:38:22 With:Sean COPE Address: [facility] [address] [place] [address]- Business (1) When:05/08/2023 11:00:00 With:ANTONIO KITCHEN Address: [facility] [address] [facility] [address] [place] [address] When: Unknown [facility] 04-30-2023 Evaluation + Plan note Extrac aissatou from: Title:Urology Progress Note Author:Zac COPE MD Date:04/30/23 Impression and Plan Impression: #1. His perinephric hematoma seems to be stable by CT scan. Hemodynamically he is stable. After his 2 units of packed red blood cells his hemoglobin has risen to 10.4. Plan: #1. At this point I would switch him to oral pain meds so as to get him ready for probable discharge to home tomorrow if his labs are stable. I have sent a prescription for Percocet so he has this at home. I have instructed him to take Tylenol first and then Motrin as needed thereafter and he can use the Percocet as a last resort. He will check an H&H on and I will see him in the office a week from Monday. Extracted from: Title:Urology Consult Note Author:PRISCA ACOSTA, Doris Stovall Date:04/29/23 Impression and Plan Impression: #1. This gentleman has a right-sided perinephric hematoma from ESWL done 2 days ago. He is hemodynamically stable. His hemoglobin may be plateauing out in the 7.7 range. At this time, it does not seem as though he will need to be transferred to [facility] for interventional radiology assistance. 2. Right nephrolithiasis. Plan: #1. We have to continue conservative management and monitoring his H&H. If his hemoglobin drops any more he then will need to get transfused 2 units of packed red blood cells. I will follow along during his hospitalization. Thank you for letting me take part in his care. Extracted from: Title:Admission H & P Author:Danica Antonio MD Date:04/29/23 1. Chest pain (R07.9: Chest pain, unspecified) Likely due to effects of below hematoma in conjunction with hypoperfusion from anemia with hx CAD Initial troponin negative Cycle troponins x4 2. Perinephric hematoma (S37.019A: Minor contusion of unspecified kidney, initial encounter) Complication for recent lithotripsy. Supportive care. Treat pain. NPO for now. Urology consultation. Prisca notified in ED. 3. Retroperitoneal hematoma (K68.3: Retroperitoneal hematoma) See above #2 4. LUIS MIGUEL (acute kidney injury) (N17.9: Acute kidney failure, unspecified) Due to hemodynamic effects of acute bleed in conjunction with possible obstructive effect from hematoma Creatinine 1.5 (was 0.9 12/2022) Hydrate 5. Acute blood loss anemia (D62: Acute posthemorrhagic anemia) Due to above Acute Hematoma. Hb 8.9. On 03/08 was 12.9 No need for transfusion at present as hemodynamically stable Follow H/H Q6hrs. 6. Constipation (K59.00: Constipation, unspecified) Offered an enema but declined at this time. Once no longer NPO would start am oral bowel regimen. 7. Coronary artery disease (I25.10: Atherosclerotic heart disease of [place] coronary artery without angina pectoris) s/p stent in 2019 CT Chest showed extensive calcifications of the LAD Follows with [facility] 8. HTN (hypertension) (I10: Essential (primary) hypertension) Holding Losartan due to LUIS MIGUEL. 9. Kidney stones (N20.0: Calculus of kidney) s/p lithotripsy by Dr Cope on 04/27 at [facility] 10. Type 2 diabetes mellitus (E11.9: Type 2 diabetes mellitus without complications) Controlled. Last A1C 7.0 in 2019. 11. Anxiety (F41.9: Anxiety disorder, unspecified) Paxil Extracted from: Title:ED Note Author:Doug Tafoya DO Date :04/28/23 Chest pain (R07.9: Chest robert n, unspecified) Perinephric hematoma (S37.019A: Minor contusion of unspecified kidney, initial encounter) Retroperitoneal hematoma (K68.3: Retroperitoneal hematoma) Orders: morphine, 4 mg = 1 mL, Injection, IV Push, Once, Stop date 04/28/23 21:08:00 EST, STAT, Start date 04/28/23 21:08:00 EST, 04/28/23 21:08:00 EST ondansetron, 4 mg = 2 mL, Injection, IV Push, Once, Stop date 04/28/23 21:09:00 EST, STAT, Start date 04/28/23 21:09:00 EST, 04/28/23 21:09:00 EST Sodium Chloride 0.9% intravenous solution 1,000 mL, 1,000 mL, IV, 983.61 mL/hr, for 30 day(s), Stop date 05/28/23 21:07:00 EST, STAT, Start date 04/28/23 21:08:00 EST, 61 minute(s), Total volume (mL): 1,000, 97 kg, 2.23, m2 Automated Diff Basic Metabolic Panel CBC w/ Auto Diff Consult to Urology CT Abdomen/Pelvis w/ Contrast CTA Chest ED Cardiac Monitoring ED Physician consult Hospitalist for continued care eGFR Extra SST Tube Oxygen Saturation Oxygen Therapy PT & PTT Saline Lock Insert Troponin 0 Hr. Troponin 3 Hr. Troponin 6 Hr. Troponin 9 Hr. UA With Cult Reflex XR Chest Single View Future Appointments Appointment Date:05/08/2023 11:00:00 AM Scheduled Provider:Sean COPE MD Location:[facility] Appointment Type:URO Office Visit Diagnostic Tests Pending * UA With Cult Reflex 04/28/23 [facility]12-02-2023 NoteBasic Information Admit Date/Time:04/28/2023 23:03 Chief Complaint CP and abdominal pain History of Present Illness 57 yo male who presented to the ED with CP, abdominal pain and SOB that started today. Describes the CP as intermittent and dull. Radiates into the left shoulder. Is worse with deep breathing. Abdominal pain is right sided and wraps around to the right flank and down into his right groin. He is s/plithotripsy by Dr Cope at [facility] yesterday. Apparently had a lot of pain after the procedure and reports some dizziness overnight as well. Almost fell when getting up to the bathroom. +chills. No fever. Patient is not on anticoagulation (not even a baby ASA). Denies any NSAID use over the past few months. Patient also c/o significant constipation. No BM since Monday. Did try a suppository at home with no relief. Workup in the ED: CT abdomen pelvis shows a 3.2 cm perinephric retroperitoneal hematoma with a component of subcapsular hemorrhagic products with no active extravasation noted on the portal venous phase. He was found to be anemic at 8.9 (last Hb 12.9) with LUIS MIGUEL (Creatinine 1.5 where previously normal). Urology was contacted and felt patient could stay here. Recommending following his Hb and they would see him in consultation tomorrow. Review of Systems Constitutional: no fever, + chills, no sweats, + weakness Skin: no jaundice, no rash, no lesions, no petechiae ENMT: no ear pain, no sore throat, no congestion, no hoarseness Respiratory: no shortness of breath, no cough, no orthopnea, no wheezing Cardiovascular: + chest pain, no palpitations, no edema Gastrointestinal: + nausea, no vomiting, no diarrhea, + abdominal pain Genitourinary: no dysuria, + hematuria Musculoskeletal: no trauma, + rt flank pain Neurologic: no headache, + dizziness Psychiatric: no depression, no anxiety Heme/Lymph: no bleeding tendency, no bruising tendency Additional ROS info: Except as noted in the above Review of Systems and in the History of Present Illness all other systems have been reviewed and are negative or noncontributory. Scoring Pratt Fall Risk Score: 35 (04/28/23) Physical Exam Vitals & Measurements T: 36.8 ?C(Oral) TMIN: 36.8 ?C(Oral) TMAX: 37.2 ?C(Oral) HR: 90(Peripheral) RR: 10 BP: 173/83 SpO2:96% HT: 185.42 cm WT: 77.2 kg General: NAD, non-toxic appearing Skin: warm, dry, no rash Head: AT/NC Neck: Trachea midline, supple Eye: normal conjunctiva, sclera clear Cardiovascular: regular rate and rhythm, S1S2, normal peripheral perfusion Respiratory: Lungs CTA anteriorly, respirations non labored, breath sounds shallow as deep breathing aggravates his pain Chest wall: no deformity. no TTP Gastrointestinal: TTP on entire right side, firm, distended Extremities: no deformity, no edema Neurological: oriented, LOC appropriate for age, no focal deficits, normal speech Psychiatric: cooperative, affect appropriate for age, good eye contact Lab Results WBC: 6.9 E9/L (04/28/23 20:55:00) RBC: 2.9 E12/L Low (04/28/23 20:55:00) HGB: 8.2 gm/dL Low (04/28/23 20:55:00) Hct: 23.7 % Low (04/28/23 20:55:00) MCV: 81.7 fL (04/28/23 20:55:00) MCH: 28.3 pg (04/28/23 20:55:00) MCHC: 34.6 gm/dL (04/28/23 20:55:00) RDW: 14 % (04/28/23 20:55:00) Platelet: 163 E9/L (04/28/23 20:55:00) MPV: 8 fL (04/28/23 20:55:00) Neutro Auto: 68 % (04/28/23 20:55:00) Lymph Auto: 22.8 % (04/28/23 20:55:00) Dodge Auto: 8.2 % (04/28/23 20:55:00) Eos Auto: 0.6 % (04/28/23 20:55:00) Basophil Auto: 0.4 % (04/28/23 20:55:00) Neutro Absolute: 4.7 E9/L (04/28/23 20:55:00) Lymph Absolute: 1.6 E9/L (04/28/23 20:55:00) Dodge Absolute: 0.6 E9/L (04/28/23 20:55:00) Eos Absolute: 0 E9/L (04/28/23 20:55:00) Basophil Absolute: 0 E9/L (04/28/23 20:55:00) PT: 11.5 second(s) (04/28/23 20:55:00) INR: 1 (04/28/23 20:55:00) PTT: 26 second(s) (04/28/23 20:55:00) Glucose Lvl: 347 mg/dL High (04/28/23 20:55:00) BUN: 24 mg/dL High (04/28/23 20:55:00) Creatinine: 1.5 mg/dL High (04/28/23 20:55:00) eGFR: 53 mL/min/1.73 m2 Low (04/28/23 20:55:00) BUN/Creat Ratio: 16 (04/28/23 20:55:00) Sodium Lvl: 134 mmol/L Low (04/28/23 20:55:00) Potassium Lvl: 4 mmol/L (04/28/23 20:55:00) Chloride: 99 mmol/L Low (04/28/23 20:55:00) CO2: 26 mmol/L (04/28/23 20:55:00) AGAP: 13 mEq/L (04/28/23 20:55:00) Calcium Lvl: 9 mg/dL (04/28/23 20:55:00) Troponin: 18.2 pg/mL (04/28/23 20:55:00) Glucose Cap: 278 mg/dL High (04/28/23 23:29:00) POC Device SN: [id number] (04/28/23 23:29:00) POC User ID: [id number] (04/28/23 23:29:00) POC Username: WILLIAM RICHTER (04/28/23 23:29:00) Assessment/Plan 1. Chest pain (R07.9: Chest pain, unspecified) Likely due to effects of below hematoma in conjunction with hypoperfusion from anemia with hx CAD Initial troponin negative Cycle troponins x4 2. Perinephric hematoma (S37.019A: Minor contusion of unspecified kidney, initial encounter) Complication for recent lithotripsy. Supportive care. Treat (more content not included)...[facility] Comment on above:Result Comment: Electronically Signed By: Danica Antonio MD\.br\Date and Time Signed: 04/29/23 00:36 [id number] Hospital Discharge instructions Patient Education 03/27/2023 09:38:53 Kidney Stones, [id number] Kidney Stones Kidney stones are rock-like masses that form inside of the kidneys. Kidneys are organs that make pee (urine). A kidney stone may move into other parts of the urinary tract, including: The tubes that connect the kidneys to the bladder (ureters). The bladder. The tube that carries urine out of the body (urethra). Kidney stones can cause very bad pain and can block the flow of pee. The stone usually leaves your body (passes) through your pee. You may need to have a doctor take out the stone. What are the causes? Kidney stones may be caused by: A condition in which certain glands make too much parathyroid hormone (primary hyperparathyroidism). A buildup of a type of crystals in the bladder made of a chemical called uric acid. The body makes uric acid when you eat certain foods. Narrowing (stricture) of one or both of the ureters. A kidney blockage that you were born with. Past surgery on the kidney or the ureters, such as gastric bypass surgery. What increases the risk? You are more likely to develop this condition if: You have had a kidney stone in the past. You have a family history of kidney stones. You do not drink enough water. You eat a diet that is high in protein, salt (sodium), or sugar. You are overweight or very overweight (obese). What are the signs or symptoms? Symptoms of a kidney stone may include: Pain in the side of the belly, right below the ribs (flank pain). Pain usually spreads (radiates) to the groin. Needing to pee often or right away (urgently). Pain when going pee (urinating). Blood in your pee (hematuria). Feeling like you may vomit (nauseous). Vomiting. Fever and chills. How is this treated? Treatment depends on the size, location, and makeup of the kidney stones. The stones will often pass out of the body through peeing. You may need to: Drink more fluid to help pass the stone. In some cases, you may be given fluids through an IV tube put into one of your veins at the hospital. Take medicine for pain. Make changes in your diet to help keep kidney stones from coming back. Sometimes, medical procedures are needed to remove a kidney stone. This may involve: A procedure to break up kidney stones using a beam of light (laser) or shock waves. Surgery to remove the kidney stones. Follow these instructions at home: Medicines Take [id number] and prescription medicines only as told by your doctor. Ask your doctor if the medicine prescribed to you requires you to avoid driving or using heavy machinery. Eating and drinking Drink enough fluid to keep your pee pale yellow. You may be told to drink at least 8 10 glasses of water each day. This will help you pass the stone. If told by your doctor, change your diet. This may include: ?Limiting how much salt you eat. ?Eating more fruits and vegetables. ?Limiting how much meat, poultry, fish, and eggs you eat. Follow instructions from your doctor about eating or drinking restrictions. General instructions Collect pee samples as told by your doctor. You may need to collect a pee sample: ?24 hours after a stone comes out. ?8 12 weeks after a stone comes out, and every 6 12 months after that. Strain your pee every time you pee (urinate), for as long as told. Use the strainer that your doctor recommends. Do not throw out the stone. Keep it so that it can be tested by your doctor. Keep all follow-up visits as told by your doctor. This is important. You may need follow-up tests. How is this prevented? To prevent another kidney stone: Drink enough fluid to keep your pee pale yellow. This is the best way to prevent kidney stones. Eat healthy foods. Avoid certain foods as told by your doctor. You may be told to eat less protein. Stay at a healthy weight. Where to find more information National Kidney Foundation (NKF): www.kidney.org U[employer] Foundation (UCF): www.urologyhealth.org Contact a doctor if: You have pain that gets worse or does not get better with medicine. Get help right away if: You have a fever or chills. You get very bad pain. You get new pain in your belly (abdomen). You pass out (faint). You cannot pee. Summary Kidney stones are rock-like masses that form inside of the kidneys. Kidney stones can cause very bad pain and can block the flow of pee. The stones will often pass out of the body through peeing. Drink enough fluid to keep your pee pale yellow. This information is not intended to replace advice given to you by your health care provider. Make sure you discuss any questions you have with your health care provider. Document Revised: 01/17/2022 Document Reviewed: 01/17/2022 [employer] Patient Education 2022 [employer]. Follow Up Care 01/06/2023 10:09:26 With:Sean COPE MD, URL Address: [facility] [address] [place] [phone] When: Unknown Comments:sched laser litho [facility] 09-12-2023 Evaluation + Plan noteExtracted from: Title:ANES Post General/Spinal Author:Deion Rodriguez Date:02/07/23 Plan Transfer/Discharge: Patient exhibiting no signs of N/V. Hydration status is adequate. Extracted from: Title:Deo Basic PRE Author:Curly Desouza DO Date:02/07/23 Plan Citizen Of [place] Society of Anesthesiologists (ASA) physical status classification: Class III. Anesthetic Preoperative Plan: Anesthesia General, and Monitored anethesia care. Regional Spinal, and Right Adductor Canal Block. Future Appointments Appointment Date:03/27/2023 09:00:00 AM Scheduled Provider:Sean COPE MD [facility]O New Patient [facility]09-12-2023 Hospital Discharge instructions Patient Education 02/07/2023 11:45:38 Post Op Patient Instructions - FT (Custom) (CUSTOM) 02/07/2023 11:45:34 How to Use an Incentive Spirometer How to Use an Incentive Spirometer An incentive spirometer is a tool that measures how well you are filling your lungs with each breath. Learning to take long, deep breaths using this tool can help you keep your lungs clear and active. This may help to reverse or lessen your chance of developing breathing (pulmonary) problems, especially infection. You may be asked to use a spirometer: After a surgery. If you have a lung problem or a history of smoking. After a long period of time when you have been unable to move or be active. If the spirometer includes an indicator to show the highest number that you have reached, your health care provider or respiratory therapist will help you set a goal. Keep a log of your progress as told by your health care provider. What are the risks? Breathing too quickly may cause dizziness or cause you to pass out. Take your time so you do not get dizzy or light-headed. If you are in pain, you may need to take pain medicine before doing incentive spirometry. It is harder to take a deep breath if you are having pain. How to use your incentive spirometer 1.Sit up on the edge of your bed or on a chair. 2.Hold the incentive spirometer so that it is in an upright position. 3.Before you use the spirometer, breathe out normally. 4.Place the mouthpiece in your mouth. Make sure your lips are closed tightly around it. 5.Breathe in slowly and as deeply as you can through your mouth, causing the piston or the ball to rise toward the top of the chamber. 6.Hold your breath for 3 5 seconds, or for as long as possible. If the spirometer includes a college football coach indicator, use this to guide you in breathing. Slow down your breathing if the indicator goes above the marked areas. 7.Remove the mouthpiece from your mouth and breathe out normally. The piston or ball will return tothe bottom of the chamber. 8.Rest for a few seconds, then repeat the steps 10 or more times. Take your time and take a few normal breaths between deep breaths so that you do not get dizzy or light-headed. Do this every 1 2 hours when you are awake. 9.If the spirometer includes a goal marker to show the highest number you have reached (best effort), use this as a goal to work toward during each repetition. 10.After each set of 10 deep breaths, cough a few times. This will help to make sure that your lungs are clear. If you have an incision on your chest or abdomen from surgery, place a pillow or a rolled-up towel firmly against the incision when you cough. This can help to reduce pain while taking deep breaths and coughing. General tips When you are able to get out of bed: ?Walk around often. ?Continue to take deep breaths and cough in order to clear your lungs. Keep using the incentive spirometer until your health care provider says it is okay to stop using it. If you have been in the hospital, you may be told to keep using the spirometer at home. Contact a health care provider if: You are having difficulty using the spirometer. You have trouble using the spirometer as often as instructed. Your pain medicine is not giving enough relief for you to use the spirometer as told. You have a fever. Get help right away if: You develop shortness of breath. You develop a cough with bloody mucus from the lungs. You have fluid or blood coming from an incision site after you cough. Summary An incentive spirometer is a tool that can help you learn to take long, deep breaths to keep your lungs clear and active. You may be asked to use a spirometer after a surgery, if you have a lung problem or a history of smoking, or if you have been inactive for a long period of time. Use your incentive spirometer as instructed every 1 2 hours while you are awake. If you have an incision on your chest or abdomen, place a pillow or a rolled-up towel firmly against your incision when you cough. This will help to reduce pain. Get help right away if you have shortness of breath, you cough up bloody mucus, or blood comes fromyour incision when you cough. This information is not intended to replace advice given to you by your health care provider. Make sure you discuss any questions you have with your health care provider. Document Revised: 08/03/2020 Document Reviewed: 08/03/2020 [employer] Patient Education 2022 [employer]. 02/07/2023 11:45:33 Knee Cryocuff Patient Instructions - FT (CUSTOM) 02/07/2023 06:54:39 [place] - Total Knee Arthroplasty. Revised 08/09/22. (Custom) [place], [place] [facility] DISCHARGE INSTRUCTIONS TOTAL KNEE ARTHROPLASTY INCISION CARE: Continue the daily dressing care to the knee as instructed in the hospital for 7 days postoperatively. The dressing will then be changed and worn an additional 7 days. You may then discontinue the dressing changes. Remove the dressing on the lower leg postoperative day #3 and leave this area open to the air. Please notify the office if any increase in redness, tenderness, drainage, fever, or wound separation is noted. MEDICATIONS: You may resume your home medications at the time of discharge. Pain medication as ordered. You may take up to 3,000 mg of acetaminophen (Tylenol) daily. Would suggest 650- 1,000 mg three times daily. Duricef (cefadroxil) as prescribed for 4 doses. Start with the evening dose the day of surgery. Ecotrin Aspirin (81 mg) twice daily with food for a total of 4 weeks postoperatively. Pain medication has been prescribed as well. You may continue to use the pain medication every fourhours as needed. Any narcotic pain medication can cause side effects including stomach upset, constipation, or light-headedness. You should not drive or operate machinery, or use alcohol while using the narcotic pain medication. You should not use other pain medications with this prescription pain medication unless further directed by your physician. PHYSICAL THERAPY: Continue the range of motion and strengthening exercises initiated in Physical Therapy in the hospital. [facility] Discharge Instructions for TKAPage 2 Physical Therapy Cont. Continue weight bearing, as ordered, to the operated knee for four to six weeks as directed in Physical Therapy. This will be with the use of a walker or crutches initially. The Physical Therapist will help decide when to transition to a cane. Physical therapy as begun in the hospital will continue at home, possible with the assistant public defender of Home Health Physical Therapy or in the hospital as an outpatient. When you have become independent withthe physical therapy program, this will then be discontinued as a supervised program and you will be instructed to continue the physical therapy exercises at home. Your exercises are escalante to successful rehabilitation. You should gain full extension first, hopefully before hospital discharge, then continue to do the exercises to maintain this, and gain 90 degreesflexion by one month post-op. Do the exercises daily, twice if preferred. DRIVING: Do NOT Drive FOLLOW-UP OFFICE VISIT: 4 weeks postop. Yann Alvarez, DO [facility] [address] [place], [place] [id number] Reviewed: 09-03 Revised 06/09 Follow Up Care 01/04/2023 15:37:47 With:Yann Alvarez Address: [address] [place] [address]- Business (1) When:03/08/2023 10:30:00 Comments:Appointment has already been scheduledCall for any problems. [facility]09-08-2023 Note [id number]:127[facility] 01-10-2023 NoteEchocardiology Procedure Exam Date/Time Accession # Ordering Echo Transthoracic 01/09/2023 09:04 EDT [id number] Jose De Jesus ACOSTA, Matthew Gar CPT code 05785 [id number] Reason for Exam (Echo Transthoracic Complete) I25.10;CAD Coronary artery disease Report Version: 1 Study ID: [id number] Adult Echocardiogram Report Name: JANICE SMYTH Study Date: 01/09/2023, 8: 12 AM Patient Location: [facility] : 1965 (MM/DD/YYYY) Gender: Male Age: 57 Years Height: 185.42 cm BP: 162 / 93 mmHg Weight: 98.431 kg HR: 62 bpm BSA: 2.23 m? Ordering Physician: Matthew Dela Cruz Referring Physician: Matthew Dela Cruz Performed By: Kerri Paniagua RDCS Reason For Study: CAD Coronary artery disease History: CAD, NC, Stent x1, HTN, DM Interpretation Summary Ejection Fraction = 60-65%. Normal LV and RV. No significant valve disease. Normal estimated PA pressure. Normal diastolic filling pattern. Procedure A complete two-dimensional transthoracic echocardiogram was performed (2D, M- mode, spectral and color flow Doppler). Study quality is good. Left Ventricle The left ventricle is normal in size. There is normal left ventricular wall thickness. Ejection Fraction = 60-65%. The left ventricular wall motion is normal. Grade I diastolic dysfunction, (abnormal relaxation pattern). Left Atrium Echocardiology Report The left atrial size is normal. Right Atrium Right atrial size is normal. Right Ventricle The right ventricular systolic function is normal. The right ventricle is normal size. The right ventricular wall motion is normal. Aortic Valve The aortic valve is trileaflet. No aortic regurgitation. There is no aortic stenosis. Mitral Valve The mitral valve is normal in structure and function. There is no mitral regurgitation noted. No mitral valve stenosis. Tricuspid Valve Structurally normal tricuspid valve. No evidence of tricuspid regurgitation. Right ventricular systolic pressure is normal. Pulmonic Valve No evidence of stenosis. There is no pulmonic valve regurgitation. Arteries The aortic root is normal in size. Normal ascending aorta. Pulmonary artery diameter is normal. Venous The inferior vena cava is normal in size, and collapses normally with respiration. Effusion There is no pericardial effusion. Left Ventricle IVSd: 1.01 cm LVIDd: 5.9 cm LVPWd: 0.96 cm LVIDs: 3.8 cm EDV(MOD-sp4): 110.0 ml LVLd ap4: 9.0 cm ESV(MOD-sp4): 39.7 ml LVLs ap4: 8.1 cm EDV(MOD-sp2): 88.5 ml LVLd ap2: 8.6 cm ESV(MOD-sp2): 29.9 ml LVLs ap2: 7.0 cm Right Ventricle TAPSE: 2.36 cm Aortic Valve LVOT diam: 2.04 cm LV V1 max: 71.8 cm/sec LV V1 max P.06 mmHg Ao max P.4 mmHg Ao V2 max: 153.1 cm/sec Tricuspid Valve TR max P.9 mmHg TR max adilene: 254.6 cm/sec Aorta Ao root diam: 3.4 cm Ao Sinus of Valsalva: 3.6 cm Ao Sinotubular Junction: 3.2 cm Atria LA dimension: 3.8 cm Diastolic funtion Med Peak E' Adilene: 5.9 cm/sec Lat Peak E' Adilene: 10.8 cm/sec Echocardiology Report MV dec time: 0.19 sec MV E max adilene: 65.6 cm/sec MV A max adilene: 62.5 cm/sec Ao max P.4 mmHg Ao root area: 9.1 cm? Ao root diam: 3.4 cm Ao Sinus of Valsalva: 3.6 cm Ao Sinotubular Junction: 3.2 cm Ao V2 max: 153.1 cm/sec AV VR: 0.47 EDITH(V,D): 1.54 cm? EDV(MOD-sp4): 110.0 ml EDV(Teich): 175.0 ml EF(MOD-sp4): 63.9 % EF(Teich): 64.0 % ESV(MOD-sp4): 39.7 ml ESV(Teich): 63.0 ml FS: 35.4 % IVC Diam: 1.65 cm IVSd: 1.01 cm LA dimension: 3.8 cm LV V1 max: 71.8 cm/sec LV V1 max P.06 mmHg LVIDd: 5.9 cm LVIDs: 3.8 cm LVLd ap4: 9.0 cm LVLs ap4: 8.1 cm LVOT area: 3.3 cm? LVOT diam: 2.04 cm LVPWd: 0.96 cm MV A max adilene: 62.5 cm/sec MV dec time: 0.19 sec MV E max adilene: 65.6 cm/sec MV E/A: 1.05 RAP systole: 3.0 mmHg RVDd: 2.7 cm RVIDd/LVIDd: 0.45 RVSP(TR): 28.9 mmHg SV(MOD-sp4): 70.3 ml TAPSE: 2.36 cm TR max P.9 mmHg TR max adilene: 254.6 cm/sec E/E' Lat: 6.1 E/E' Med: 11.1 EDV(MOD-sp2): 88.5 ml EF (MOD-bp): 63.3 % EF(MOD-sp2): 66.2 % ESV(MOD-sp2): 29.9 ml LA Vol Index: 25.2 ml/m? Lat Peak E' Adilene: 10.8 cm/sec LVLd ap2: 8.6 cm LVLs ap2: 7.0 cm Med Peak E' Adilene: 5.9 cm/sec Echocardiology Report Electronically signed by: Matthew Dela Cruz MD 01/10/2023, 7: 02 AM FINAL REPORT Dictated: 01/09/2023 8:12 am Matthew Dela Cruz MD Signed (Electronic Signature): 01/10/2023 7:02 am Signed by: Matthew Dela Cruz MD Transcribed by: [facility] Technologist: [facility] Plan note No data available for this section [facility] note Future Appointments Appointment Date:01/16/2023 07:30:00 AM Scheduled Provider: Location:[facility] Appointment Type:Surgical PAT FT Appointment Date:01/16/2023 08:30:00 AM Scheduled Provider: Location:[facility] Appointment Type:CT Lower Extremity (FT) Appointment Date:02/07/2023 09:00:00 AM Scheduled Provider: Location:[facility] Appointment Type:Surgery FT Appointment Date:02/10/2023 09:30:00 AM Scheduled Provider:Estephania VILLANUEVA CNP [facility] Appointment Type:Cardiology Follow Up (FT) Appointment Date:03/27/2023 09:00:00 AM Scheduled Provider:Sean COPE MD Location:[facility] Appointment Type:URO New Patient Future Scheduled Tests Radiology* CT Lower Extremity w/o Contrast Right 01/16/23 [facility] Future Appointments Appointment Date:01/16/2023 07:30:00 AM Scheduled Provider: [facility] App[facility] Type:Surgical PAT FT Appointment Date:01/16/2023 08:30:00 AM Scheduled Provider: Location:[facility] Appointment Type:CT Lower Extremity (FT) Appointment Date:02/07/2023 09:00:00 AM Scheduled Provider: [facility] App[facility]ment Type:Surgery FT Appointment Date:03/27/2023 09:00:00 AM Scheduled Provider:Sean COPE MD Location:[facility] Appointment Type:URO New Patient Future Scheduled Tests Radiology* CT Lower Extremity w/o Contrast Right 01/16/23 [facility] Future Appointments Appointment Date:02/07/2023 09:00:00 AM Scheduled Provider: Location:[facility] Appointment Type:Surgery FT Appointment Date:03/27/2023 09:00:00 AM Scheduled Provider:Sean COPE MD [facility] Future Appointments Appointment Date:03/27/2023 09:00:00 AM Scheduled Provider:Sean COPE MD Location:[facility] Appointment Type:URO [facility] Future Appointments Appointment Date:06/12/2023 09:15:00 AM Scheduled Provider:Sean COPE MD Location:[facility] Appointment Type:URO Office Visit Diagnostic Tests Pending * CBC w/ Auto Diff 05/08/23 [facility] Discharge instructions No data available for this section [facility] No data available for this section [facility] Summary Purpose Family History No Family History Records FoundNo Family History Records FoundNo Family History Records Found No data available for this section No data available for this section No Family History Records Found No data available for this section No data available for this section No Family History Records Found Advance Directives No Advanced Directives Records FoundNo Advanced Directives Records FoundNo Advanced Directives Records FoundNo Advanced Directives Records FoundNo Advanced Directives Records Found Additional Source Comments (unrecognized sect ion and content) No Status Records FoundNo Status Records FoundNo Status Records FoundNo Status Records FoundNo Status Records Found INFORMATION SOURCE (unrecogn ized section and content) DATE CREATED AUTHOR 05/21/[address] [facility] DATE CREATED AUTHOR AUTHOR'S ORGANIZ ATION 07/05/2021 [facility] DATE CREATED AUTHOR AUTHOR'S ORGANIZ ATION 08/19/2021 [facility] DATE CREATED AUTHOR AUTHOR'S ORGANIZ ATION 04/25/2023 [facility] EPIC DATE CREATED AUTHOR AUTHOR'S ORGANIZ ATION 05/16/2023 Domingo Merritt [facility] Care Team (unrecognized sect ion and content) Personnel Name: ANTONIO KITCHEN DO Address: [address] [place] [address] Personnel Name: ANTONIO KITCHEN DO Address: Address: [address] [place] [address] Personnel Name: ANTONIO KITCHEN DO Address: Address: [address] [place] [address] Personnel Name: ANTONIO KITCHEN DO Address: Address: [address] [place] [address] Personnel Name: ANTONIO KITCHEN DO Address: Address: [address] [place] [address] Personnel Name: ANTONIO KITCHEN DO Address: Address: [address] [place] [address] Personnel Name: ANTONIO KITCHEN DO Address: Address: [address] [place] [address] Personnel Name: ANTONIO KITCHEN DO Address: Address: [address] [place] [address] Personnel Name: ANTONIO KITCHEN DO Address: Address: [address] [place] [address] FOR RECORDS PERTAINING TO PATIENTS WHO ARE OR HAVE BEEN ENROLLED IN A CHEMICAL DEPENDENCY/SUBSTANCEABUSE PROGRAM, SOME INFORMATION MAY BE OMITTED. This clinical summary was aggregated from multiple sources. Caution should be exercised in using it in the provision of clinical care. This summary normalizes information from multiple sources, and as a consequence, information in this document may materially change the coding, format and clinical context of patient data. In addition, data may be omitted in some cases. CLINICAL DECISIONS SHOULD BE BASED ON THE PRIMARY CLINICAL RECORDS. [employer] provides no warranty or guarantee of the accuracy or completeness of information in this document.
[2023-05-17 10:47] LABS: Basophils Percent Auto 0.5 % (0.2-2.0); Eosinophils Absolute Auto 0.1 10^3/uL (0.0-0.7); Eosinophils Percent Auto 1.1 % (0.9-7.0); Hematocrit 33.6 % (42.0-54.0); Hemoglobin 10.7 g/dL (14.0-18.0); Immature Granulocytes Abs Auto 0.01 10^3/uL (0.00-0.03); Immature Granulocytes Pct Auto 0.2 % (0.0-0.5); Lymphocytes Absolute Auto 1.6 10^3/uL (1.2-3.8); Lymphocytes Percent Auto 28.8 % (20.5-60.0); Mean Corpuscular HGB Conc 31.8 g/dL (29.9-35.2); Mean Corpuscular Hemoglobin 27.4 pg (25.9-34.0); Mean Corpuscular Volume 85.9 fL (80.0-94.0); Mean Platelet Volume 9.6 fL (9.5-13.5); Monocytes Absolute Auto 0.5 10^3/uL (0.3-0.8); Monocytes Percent Auto 9.5 % (1.7-12.0); Neutrophils Absolute Auto 3.4 10^3/uL (1.4-6.5); Neutrophils Percent Auto 59.9 % (43.0-75.0); Platelet Count 538 10^3/uL (150-450); Red Blood Count 3.91 10^6/uL (4.70-6.10); Red Cell Distribution Width 12.3 % (11.0-15.0); White Blood Count 5.6 10^3/uL (4.0-11.0)
== END 2023-05-17 10:15 | disposition home or self-care (01) ==
LOC: LAB 10:19
PROVIDERS: PCP Internal Medicine; Visit Provider Urology
DX: N20.0 Calculus of kidney (principal); N40.0 Benign prostatic hyperplasia without lower urinary tract symptoms; Z79.82 Long term (current) use of aspirin; S37.011A Minor contusion of right kidney, initial encounter
CPT/HCPCS: 36415; 85025

== ENCOUNTER 2023-06-07 10:20 | Outpatient (OUT) | payer BC, SELFPAY ==
--- OUTSIDE RECORDS SUMMARY | 2023-06-07 10:26 | XMS_ITS | CCD ---
Author Name Unknown Address [address] [place] [address] Organization [facility] Care Team Providers Care Kier Drier Name Role Phone BEDOCS, DR RANJEET Kuhn Attending Unavailable BEDOCS, DR RANJEET Kuhn Consulting Unavailable BEDOCS, DR RANJEET Kuhn Admitting Unavailable MISC, DR OLIVER Primary Care Unavailable ANTONIO KITCHEN Primary Care Physician Unavail able MATHEUS MCKINNON Attending Unavailable POCOS, YANN Grant Referring Unavailable FIDELINA, ANTONIO Grant Attending Unavailable ANTONIO KITCHEN Referring Unavailable DEION HAMLIN Attending Unavailable POCOS, YANN Grant Referring Unavailable SOUMYA LOMAX Attending Unavailable FIDELINA, ANTONIO Grant Referring Unavailable DORA CHEUNG Attending Unava ilable DEION HAMLIN Attending Unavailable POCOS, YANN Grant Referring Unavailable MATHEUS MCKINNON Attending Unavailable POCOS, YANN Grant Referring Unavailable POCOS, YANN Grant Attending Unavailable GUNDLDEION LEA Attending Unavailable POCOS, YANN Grant Referring Unavailable MATHEUS MCKINNON Attending Unavailable POCOS, YANN Grant Referring Unavailable MATHEUS MCKINNON Attending Unavailable POCOS, YANN Grant Referring Unavailable POCOS, YANN Grant Attending Unavailable POCOS, YANN Grant Referring Unavailable GUNDLDEION LEA Attending Unavailable POCOS, YANN Grant Referring Unavailable Pocos, Yann Grant Admitting Unavailable Pocos, Yann Grant Attending Unavailable Edward Castillo Attending Unavailable Danica Antonio Admitting Unavailable Sean COPE Consulting Unavailable MD Sean COPE Consulting Unavailable PRISCA, Sean Stovall Consulting Unavailable PRISCA, Sean Stovall Consulting Unavailable PRISCA, Sean Stovall Consulting Unavailable PRISCA, Sean Stovall Consulting Unavailable COPE, Sean Stovall Consulting Unavailable COPE, Sean Stovall Consulting Unavailable COPE, Sean Stovall Consulting Unavailable COPE, Sean Stovall Consulting Unavailable PRISCA, Sean Stovall Consulting Unavailable Sean COPE Consulting Unavailable COPESean Consulting Unavailable Sean COPE Consulting Unavailable PocosYann Referring Unavailable Pocmaribell, Yann Grant Attending Unavailable Mahsa, Yann Grant Admitting Unavailable Matthew Dela Cruz Attending Unavaila Matthew Geronimo Admitting Unavaila ble NONE, XXXX Referring Unavailable STANG, Estephania L Attending Unavailable STANG, Estephania L Admitting Unavailable NONE, XXXX Referring Unavailable Sean COPE Attending Unavailable Sean COPE Attending Unavailable Sean COPE Attending Unavailable ANTONIO KITCHEN Referring Unavailable Sean COPE Attending Unavailable PocosYann Referring Unavailable PocosYann Attending Unavailable Mahsa, Yann Grant Admitting Unavailable Matthew Dela Cruz Referring Matthew Melo Attending Unavaila Matthew Geronimo Consulting Unavaila Matthew Geronimo Admitting Unavaila Matthew Geronimo Consulting Unavaila Matthew Geronimo Consulting Unavaila ble Allergies Allergy Classification Reported Allergen(s) Allergy Type Date of Onset Reaction(s) Facility (2 sources) HYDROcodone; Translations: [HYDROcodone] Drug Allergy [facility] Repository (7 sources) HYDROcodone; Translations: [hydrocodone] Drug Allergy Itching [facility] Medications Current Medications Medication Drug Class(es) Dates Sig (Normalized) Sig (Original) acetaminophen 325 mg / HYDROcodone bitartrate 5 mg oral tablet (1 source) Opioid Agonist Start: 02-09-2023 [place] 325 mg-5 mg oral tablet See Instructions, for pain, 40 tab(s), Refill(s) 0, 1 - 2 po q4-6h prn pain Dx: M17.11, Z96.651 Duration: 7 days, [facility], 188, cm, 01/16/23 7:42:00 EDT, Height/Length Dosing, 97, kg, 01/16/23 7:42:00 EDT, Weight Dosing Start Date: 02/09/23 Status: Ordered acetaminophen 325 mg / oxyCODONE hydrochloride 7.5 mg oral tablet (2 sources) Opioid Agonist Start: 04-30-2023 Percocet 7.5/325 oral tablet 2 tab(s), Oral, q6hr for pain, 20 tab(s), Refill(s) 0, [facility]/pharmacy #[id number], 185, cm, 04/28/23 20:47:00 EST, Height/Length Dosing, 77.2, kg, 04/29/23 10:14:00 EST, Weight Dosing Start Date: 04/30/23 Status: Ordered amLODIPine 5 mg oral tablet (2 sources) Dihydropyridine Calcium Channel Castro Start: 05-01-2023 take 1 tablet by mouth twice daily amLODIPine 5 mg Tab 5 mg = 1 tab(s), Oral, BID, # 60 tab(s), Refills(s) 0, Pharmacy: [facility]/pharmacy #[id number], 185, cm, 04/28/23 20:47:00 EST, Height/Length [...] Daily, # 90 tab(s), Refills(s) 3, Pharmacy: [facility], 186, cm, 11/24/21 14:21:00 EDT, Height/Length Dosing, 98, kg, 11/24/21 14:21:00 EDT, Weight Dosing Start Date: 12/16/22 Status: Ordered Start: 01-26-2021 take 1 tablet by allen th once daily Aspirin 81 mg Tab-Chew 81 mg = 1 tab(s), Oral, Daily, # 90 tab(s), Refills(s) 3, Pharmacy: [facility]/pharmacy #[id number], 186, cm, 10/20/20 11:38:00 EDT, Height/Length Dosing, 96, kg, 10/20/20 11:38:00 EDT, Weight Dosing Start Date: 01/26/21 Status: Ordered atorvastatin 80 mg oral tablet (9 sources) HMG-CoA Reductase Inhibitor Start: 09-07-2021 take 1 tablet by mouth once daily atorvastatin 80 mg Tab 80 mg = 1 tab(s), Oral, Daily, # 90 tab(s), Refills(s) 3, Pharmacy: [facility], 186, cm, 10/20/20 11:38:00 [...] Anxiety, # 15 tab(s), Refills(s) 0, Pharmacy: [facility]/pharmacy #[id number], 185.4, cm, 02/21/20 20:48:00 EDT, Height/Length Dosing, 93.7, kg, 02/21/20 20:48:00 EDT, Weight Dosing Start Date: 02/24/20 Status: Ordered losartan potassium 100 mg oral tablet (7 sources) Angiotensin 2 Receptor Castro Start: 03-22-2023 take 1 tablet by mouth once daily losartan 100 mg Tab 100 mg = 1 tab(s), Oral, Daily, # 90 tab(s), Refills(s) 2, Pharmacy: [facility]/pharmacy #[id number], 188, cm, 01/16/23 7:42:00 EDT, Height/Length [...] Daily, # 90 tab(s), Refills(s) 0, Pharmacy: [facility], 186, cm, 10/20/20 11:38:00 EDT, [...] attention, # 30 tab(s), Refills(s) 0, Pharmacy: [facility]/pharmacy #6177, 185.4, cm, 02/21/20 20:48:00 EDT, Height/Length [...] Daily, # 30 tab(s), Refills(s) 0, Pharmacy: [facility]/pharmacy #[id number], 186, cm, 03/10/20 10:58:00 EDT, Height/Length [...] sources) Long-term current use of aspirin; 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] Onset: 03-27-2023 Episodic [...] Results Test Name Value Interpretation Reference Range Facility Lab Reportson 05-23-2023 Lab Reports [id number]#1 .00TIFF [facility] Lab Reportson 05-15-2023 Lab Reports [id number]#1 .00TIFF [facility] Formson 05-10-2023 Forms [id number]#1 .00TIFF [facility] Insurance Correspondence Off iceon 05-10-2023 Insurance Correspondence Office [id number] #1.00TIFF [facility] Ambulatory Visit Summaryon 1 07-09-2022 Ambulatory Visit Summary JANICE SMYTH :1965 Visit Date:05/08/2023 Ambulatory Visit Instructions Your Diagnosis Kidney stones BPH (benign prostatic hyperplasia) Aspirin long-term use Hematoma of right kidney Tests Performed Urnls Dip Stick Auto w/o Microscopy POC [id number] Your Care Team Attending Physician - PRISCA ACOSTA, Sean Stovall Primary Care Physician - ANTONIO KITCHEN DO This Is Your Medications List Contact prescribing physician if questions or concerns acetaminophen-oxycodo ne (Percocet 7.5/325 oral tablet) amlodipine (amLODIPine 5 [...] [place] Where: [facility] Patient Educationon 05-08-20 Patient Education Urology [...] these instructions at home: Medicines ? Take oopk-vob-gpyiebx and prescription medicines only as told by [...] provider. Document Revised: 01/17/2022 Document Reviewed: 01/17/2022 [employer] Patient Education ? 2022 [employer] [facility] Progress Note-Physicianon Progress Note-Physician Assessment/Plan [...] surrounding the right kidney measuring 3.3cm in thickness--subcapsula r hematoma unchanged from prior. 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 HTN (hypertension) (I10: Essential (primary) hypertension) Holding Losartan due to LUIS MIGUEL. Amlodipine started today improved. 9. Kidney stones (N20.0: Calculus of kidney) s/p lithotripsy by Dr Cope on 04/27 at [facility] 10. Type 2 diabetes mellitus (E11.9: [...] 05:53:00) Lymph Auto: 26.8 % (04/30/23 05:53:00) [place] Auto: 8.9 % (04/30/23 05:53:00) Eos Auto: 2.3 % (04/30/23 05:53:00) Basophil Auto: 0.4 % (04/30/23 05:53:00) Neutro Absolute: 3.1 E9/L (04/30/23 05:53:00) Lymph Absolute: 1.3 E9/L (04/30/23 05:53:00) [place] Absolute: 0.4 E9/L (04/30/23 05:53:00) Eos Absolute: 0.1 E9/L (04/30/23 05:53:00) Basophil Absolute: 0 E9/L (04/30/23 05:53:00) Glucose (more content not included)... [facility] Comment on above: Result Comment: Elec tronically Signed By: Huyen DE LOS SANTOS\.br\Date and Time Signed: 04/30/23 10:29 EST\.br\Electronically Co-Signed By: Huyen DE LOS SANTOS\.br\Date and Time Co-Signed: 04/30/23 10:32 EST\.br\Electronically Co-Signed By: Zoraida Orr MD\.br\Date and Time Co-Signed: 05/08/23 10:08 EST Urology Office/Clinic Noteon 05-08-2023 Urology Office/Clinic Note Chief Complaint Hematoma following ESWL HPI Staff S/P Rt ESWL 04/27/23 DX: Kidney Stone & BPH [facility] 04/28/23 CC: Chest pain & SOB CT ap w04/28/23 *Subcapsular hematoma around Rt Kidney Pt admitted to hospital CT ap w04/30/23 *No changes PRW did hospital consult 04/30/23. [...] - 0.58 3. Aspirin long-term use (Z79.82: intermediate (current) use of aspirin) Aspirin therapy 4. 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 Patient does not feel [...] month [facility] [address], [place] [phone] Addition (more content not included)... [facility] Comment on above: Result Comment: Elec tronically Signed By: Sean COPE MD\.br\Date and Time Signed: 05/08/23 12:52 EST\.br\Electronically Co-Signed By: Oliva Luna\.br\Date and Time Co-Signed: 05/08/23 12:48 EST Blood Bank Slipon 05-05-2023 Blood Bank Slip [id number]#1 .00TIFF [facility] Blood Bank Slip [id number]#1 .00TIFF [facility] Consent for Blood Transfusio non 05-05-2023 Consent for Blood Transfusion [id number]#1 .00TIFF [facility] Discharge Instructionson Discharge Instructions [id number]#1 .00TIFF [facility] Lab Reportson 05-05-2023 Lab Reports [id number]#1 .00TIFF [facility] RAD - MISCon 05-05-2023 RAD - MIS [id number]#1 .00TIFF [facility] General Message Officeon General Message Office --- --- --- --- - -- --- --- --- --- From: [facility], DirectInbox To: JANICE SMYTH Sent: 05/02/23 02:30:58 AM EST Subject: Discharge Summary Ready to View A summary regarding your recent visit is available in the Documents section of your health record. [facility] OARRS Reporton 05-02-2023 OARRS Report [id number]#1 .00TIFF [facility] CHEMISTRYOrdered By: Lab ROP User on 05-01-2023 Glucose [Mass/Vol] 280 mg/dL High 55 - 99 mg/dL [facility] [place] Subsection Comment on above: Result Comment: Christine PHILLIPS POC Username JOHANA SPAIN Invalid Interpretation Code FT POC Subsection Sodium [Moles/Vol] [id number] mmol/L Invalid Interpretation Code FT POC Subsection Sodium [Moles/Vol] 538652659 mmol/L Invalid Interpretation Code [facility] Subsection Glucose [Mass/Vol] 160 mg/dL High 55 - 99 mg/dL [facility] [place] Subsection Comment on above: Result Comment: Christine PHILLIPS POC Username JOHANA SPAIN Invalid Interpretation Code [facility] Subsection Sodium [Moles/Vol] [id number] mmol/L Invalid Interpretation Code [facility] Subsection Sodium [Moles/Vol] 237103478 mmol/L Invalid Interpretation Code [facility] P[place] Subsection Capillary Glucose POCon Glucose [Mass/Vol] 280 mg/dL High 55-99 [facility] Comment on above: Result Comment: Christine PHILLIPS Performed By: #### 2 [id number] #### [facility] [address] [place] [address] Glucose [Mass/Vol] 160 mg/dL High 55-99 [facility] Comment on above: Result Comment: Christine PHILLIPS Performed By: #### 2 [id number] ####[facility] [id number] [place] [address] Discharge Note-Nursingon Discharge Note-Nursing JANICE SMYTH :1965 Visit Date:04/28/2023 Inpatient Discharge Instructions Your Care Team Admitting Physician - Danica Antonio MD Consulting Physician - Sean COPE MD Reason [...] care physician. This Is Your Medications List acetaminophen-oxycodo ne (Percocet 7.5/325 oral tablet) amlodipine (amLODIPine 5 [...] Pending Diagnostic Test Results None [facility] Information [facility] [place] , [facility] Discharge Instructions take [...] ACOSTA, Sean Stovall Where: [facility] Normal [facility] HEMATOLOGYOrdered By: John Dumont on 05-01-2023 Hematocrit (Bld) [Volume fraction] 28.1 % Low 37.7 - 49.0 % [facility] HemeAuto[facility] Hemoglobin (Bld) [Mass/Vol] 9.9 g/dL Low 13.5 - 17.5 gm/dL [facility] HemeAuto[facility] HEMATOLOGYOrdered By: Jack Livingston on 05-01-2023 Hematocrit (Bld) [Volume fraction] 26.6 % Low 37.7 - 49.0 % [facility] HemeAutoSS Hemoglobin (Bld) [Mass/Vol] 9.4 g/dL Low 13.5 - 17.5 gm/dL [facility] HemeAutoSS Hct & Hgbon 05-01-2023 Hematocrit (Bld) [Volume fraction] 28.1 % Low 37.7-49.0 [facility] Comment on above: Performed By: #### 7 [id number] #### [facility] [address] [place] [address] Hemoglobin (Bld) [Mass/Vol] 9.9 g/dL Low 13.5-17.5 [facility] Comment on above: Performed By: #### 7 [id number] #### [facility] [address] [place] [address] Hematocrit (Bld) [Volume fraction] 26.6 % Low 37.7-49.0 [facility] Comment on above: Performed By: #### 7 [id number] #### [facility] [address] [place] [address] Hemoglobin (Bld) [Mass/Vol] 9.4 g/dL Low 13.5-17.5 [facility] Comment on above: Performed By: #### 7 [id number] #### [facility] [address] [place] [address] Hematocrit (Bld) [Volume fraction] 26.3 % Low 37.7-49.0 [facility] Comment on above: Performed By: #### 1 [id number] #### [facility] [address] [place] [address] Hemoglobin (Bld) [Mass/Vol] 9.2 g/dL Low 13.5-17.5 [facility] Comment on above: Performed By: #### 1 [id number] #### [facility] [address] [place] [address] Inpatient Clinical Summaryon 05-01-2023 Inpatient Clinical Summary [address] [id number] Clinical Summary Person Information: Name: JANICE SMYTH Age: 57 Years : 1965 Sex: Male PCP: ANTONIO KITCHEN DO Marital Status: Race: White Ethnicity: Non- or Language: Chadian Visit Id: Visit Reason: Dizziness; Shortness of breath; Chest pain; CHEST PAIN Speciality: Acuity: Enc Type: Inpatient Med Service: Medical Arrival: 04/28/2023 20:35:17 Discharge: Dispo Type: Admitted as IP to this Hosp Address: [address] [facility] [id number] Provider Notes: Diagnosis: 1:Chest pain; 2:Perinephric hematoma; [...] Immunizations Documented This Visit Final Med List: acetaminophen-oxycodo ne (Percocet 7.5/325 oral tablet) 2 Tablets By [...] Sean COPE [facility], [address], [place] [address] Business (1) 05/08/2023 11:00 AM With: Address: When: ANTONIO KITCHEN [address] [place], [place] [id number] Type Location Start Finish State [facility] Office [place] [facility] [place] 05/08/2023 11:00 AM 05/08/2023 11:15 AM Confirmed Patient Education Information: Retroperitoneal Bleeding [facility] Inpatient Patient Summaryon 05-01-2023 Inpatient Patient [...] care physician. This Is Your Medications List acetaminophen-oxycodo ne (Percocet 7.5/325 oral tablet) amlodipine (amLODIPine 5 [...] Pending Diagnostic Test Results None Pharmacy Information [facility] [place] , [facility] [place] , Other: [facility] Discharge Instructions take [...] [place]ov[place] Where: [facility] Inpatient Patient Summary [place] [id number] Patient Discharge Instructions PERSON INFORMATION Name: JANICE [...] 2 diabetes mellitus; 11:Anxiety Condition at Discharge: JANICE Baker has been given the following list of [...] When: Sean COPE [facility], [address] [place] [address] Business (1) 05/08/2023 11:00 AM With: Address: When: ANTONIO KITCHEN [facility] [address] [facility] [place] [id number] In the event that this physician does not participate in your insurance network, please consult with your insurance company to find a nearby participating provider. Type Location Start [facility] Office Visit [facility] [place] 05/08/2023 11:00 AM 05/08/2023 11:15 AM Confirmed Comment: DEONNA Beasley JAMES P, have received the attached patient education materials/instruction s and have verbalized understanding: Patient Signature Date Clinican/Nurse Signature Date HERE ARE THE MEDICATION CHANGES THAT OCCURRED DURING YOUR HOSPITAL STAY New Medications [id number] [address] [place], [place] [id number], [phone] acetaminophen-oxycodo ne (Percocet 7.5/325 oral tablet) 2 Tablets By Mouth every 6 hours as needed for pain. Refills: 0. Last Dose: ____Next Dose: ____ amlodipine (amLODIPine 5 mg Tab) 1 Tablets By Mouth 2 times a day. Refills: 0. Last Dose: ____Next Dose: ____ Medications to Continue with No Changes Other Medications atorvastatin (atorvastatin 80 mg Tab) 1 Tablets By Mouth every day. Refills: 3. Last Dose: ____Next Dose: ____ ixekizumab (Taltz Autoinjector) 80 Milligram Subcutaneous every 4 weeks., psoriasis Last Dose: ____Next Dose: ____ latanoprost ophthalmic (latanoprost Opth 0.005% Rosalina) 1 Drops Ophthalmic once a day (at bedtime). Last Dose: ____Next Dose: ____ losartan (losartan 100 mg Tab) 1 Tablets By Mouth every day. Refills: 2. Last Dose: ____Next Dose: ____ metformin (metformin 500 mg Tab) Last Dose: ____Next Dose: ____ multivitamin with minerals (Multivitamins and Minerals) 1 tab By Mouth every day. Last Dose: ____Next Dose: ____ omega-3 polyunsaturated fatty acids (Fish Oil) 500 Milligram By Mouth every day. Last Dose: ____Next Dose: ____ paroxetine (paroxetine 10 mg Tab) 1 Tablets By Mouth every day. Last Dose: ____Next Dose: ____ pyridoxine (Vitamin B6 100 mg Tab) 1 Tablets By Mouth every day. Last Dose: ____Next Dose: ____ semaglutide (Rybelsus 7 mg oral tablet) 90 EA, TAKE 1 TAB AT LEAST 30MIN. BEFORE FIRST FOOD, DRINK, OR OTHER ORAL MEDS OF THE DAY., Responsible Provider: ANTONIO KITCHEN Last Dose: ____Next Dose: ____ No Longer Take the Following Medications nitroglycerin (nitroglycerin 0.4 mg sublingual Tab) 1 Tablets Sublingual every 5 minutes as needed Chest pain. not to exceed 3 doses/15 min--if pain persists, seek medical attention. Refills: 0. Comment: MEDICATION LIST PROVIDED FOR YOU IS A LIST OF YOUR CURRENT MEDICATIONS. PLEASE CARRY THIS WITH YOU AT ALL TIMES. acetaminophen-oxycodo ne (Percocet 7.5/325 oral tablet) 2 Tablets By Mouth every 6 hours as needed for pain. Refills: 0. amlodipine (am (more content not included)... [facility] Insurance Correspondence Off iceon 05-01-2023 Insurance Correspondence Office [id number]#1 .00TIFF [facility] Insurance Correspondence Office [id number]# 1.00TIFF [facility] Interdisciplinary Note - Mauricio e Manageron 05-01-2023 Interdisciplinary Note - Statistical Technician Pt is awake and alert in bed, previously rounded with Stephanie POULTRY FARMER. Pt is aware of plan to DC home later today. PT is independent from home , will transport at DC, declines any concerns or DC needs. PCP verified and insurance information provided and white board updated. Contact information provided and white board updated. [facility] Comment on above: Result Comment: Elec tronically Signed By: Porfirio COY, Elda\.br\Date and Time Signed: 05/01/23 12:03 EST Monitor Recordon 05-01-2023 Monitor Record [id number]# 1.00TIFF [facility] Monitor Record [id number]# 1.00TIFF [facility] Monitor Record [id number]# 1.00TIFF [facility] Monitor Record [id number]# 1.00TIFF [facility] Provider Letteron 05-01-2023 Provider Letter May 01, 2023 JANICE SMYTH [address] [place] [id number] : 1965 To Whom It May Concern, [...] Sean Cope M.D., F.A.C.S. [facility] [address] [place], [place] [address] Faxed: Normal [facility] Auto Diffon 04-30-2023 Basophils/100 WBC (Bld) 0.4 % Normal 0.0-2.0 [facility] Comment on above: Order Comment: Order Added by Discern Expert. Performed By: #### 1 [id number], [id number], [id number], [id number] ####[place] [address] [place] [address] Basophils/Leukocytes Auto (Bld) [Pure # fraction] 0.0 E9/L Normal 0.0-0.2 [facility] Comment on above: Order Comment: Order Added by Discern Expert. Performed By: #### 1 [id number], [id number], [id number], [id number] ####[place] [address] [place] [address] Eosinophils/100 WBC (Bld) 2.3 % Normal 0.0-8.0 [facility] Comment on above: Order Comment: Order Added by Discern Expert. Performed By: #### 1 [id number], [id number], [id number], [id number] ####[place] [address] [place] [address] Eosinophils/Leukocytes Auto (Bld) [Pure # fraction] 0.1 E9/L Normal 0.0-0.5 [facility] Comment on above: Order Comment: Order Added by Discern Expert. Performed By: #### 1 [id number], [id number], [id number], [id number] ####[place] [address] [place] [address] Lymphocytes/100 WBC (Bld) 26.8 % Normal 14.0-50.0 [facility] Comment on above: Order Comment: Order Added by Discern Expert. Performed By: #### 1 [id number], [id number], [id number], [id number] ####[address] [address] [place] [address] Lymphocytes/Leukocytes Auto (Bld) [Pure # fraction] 1.3 E9/L Normal 1.0-4.0 [facility] Comment on above: Order Comment: Order Added by Discern Expert. Performed By: #### 1 [id number], [id number], 9250439, [id number] ####[address] [address] [place] [address] Monocytes/100 WBC (Bld) 8.9 % Normal 4.0-14.0 [facility] Comment on above: Order Comment: Order Added by Discern Expert. Performed By: #### 1 [id number], [id number], [id number], [id number] ####[address] [address] Monocytes/Leukocytes Auto (Bld) [Pure # fraction] 0.4 E9/L Normal 0.2-1.0 [facility] Comment on above: Order Comment: Order Added by Discern Expert. Performed By: #### 1 [id number], [id number], [id number], [id number] ####[address] [address] Neutrophils/100 WBC (Bld) 61.6 % Normal 36.0-75.0 [facility] Comment on above: Order Comment: Order Added by Discern Expert. Performed By: #### 1 [id number], 5050727, 3743406, [id number] ####[address] [address] Neutrophils/Leukocytes Auto (Bld) [Pure # fraction] 3.1 E9/L Normal 2.0-7.5 [facility] Comment on above: Order Comment: Order Added by Discern Expert. Performed By: #### 1 [id number], 1899795, 6614493, 7225642 ####[address] [place] [address] BMPon 04-30-2023 Anion gap [Moles/Vol] 8 mmol/L Normal 6-16 [facility] Comment on above: Performed By: #### 2 [id number] #### [facility] [address] [place] [address] Calcium [Mass/Vol] 8.8 mg/dL Low 8.9-11.1 [facility] Comment on above: Performed By: #### 2 [id number] #### [facility] [address] [place] [address] Chloride [Moles/Vol] 105 mmol/L Normal 101-111 [facility] Comment on above: Performed By: #### 2 [id number] #### [facility] [address] [place] [address] CO2 [Moles/Vol] 31 mmol/L Normal 21-31 [facility] Comment on above: Performed By: #### 2 [id number] #### [facility] [address] [place] [address] Creatinine [Mass/Vol] 1.0 mg/dL Normal 0.5-1.3 [facility] Comment on above: Performed By: #### 2 [id number] #### [facility] [address] [place] [address] Glucose [Mass/Vol] 172 mg/dL Normal 55-199 [facility] Comment on above: Result Comment: If t his glucose result represents a fasting glucose, interpretation should refer to the following reference range: 55-99 mg/dL Performed By: #### 2 [id number] #### [facility] [address] [place] [address] Potassium [Moles/Vol] 3.9 mmol/L Normal 3.5-5.3 [facility] Comment on above: Performed By: #### 2 [id number] #### [facility] [address] [place] [address] Sodium [Moles/Vol] 140 mmol/L Normal 135-145 [facility] Comment on above: Performed By: #### 2 [id number] #### [facility] [address] [place] [address] Urea nitrogen [Mass/Vol] 14 mg/dL Normal 5-21 [facility] Comment on above: Performed By: #### 2 [id number] #### [facility] [address] [place] [address] Urea nitrogen/Creatinine [Mass ratio] 14 No Units Normal 10-20 [facility] Comment on above: Performed By: #### 2 [id number] #### [facility] [address] [place] [address] CBC w/ Auto Diffon 3 Erythrocyte distribution width (RBC) [Ratio] 13.7 % Normal 10.9-14.2 [facility] Comment on above: Performed By: #### 1 [id number], 4175725, 9207834, 2817884 ####[facility] [address] [place] [address] Hematocrit (Bld) [Volume fraction] 27.2 % Low 37.7-49.0 [facility] Comment on above: Performed By: #### 1 7939244, 0413390, 0038833, 7429043 ####[facility] [address] [place] [address] Hemoglobin (Bld) [Mass/Vol] 9.4 g/dL Low 13.5-17.5 [facility] Comment on above: Performed By: #### 1 0545406, 4809041, 6960064, 2615449 ####[facility] [address] [place] [address] MCH (RBC) [Entitic mass] 28.5 pg Normal 27.0-34.0 [facility] Comment on above: Performed By: #### 1 6677163, 5427183, 1168838, 6022675 ####[facility] [address] [place] [address] MCHC (RBC) [Mass/Vol] 34.5 g/dL Normal 31.4-36.0 [facility] Comment on above: Performed By: #### 1 7949502, 6546678, 8848234, 8445687 ####[facility] [address] [place] [address] MCV (RBC) [Entitic vol] 82.5 fL Normal 80.0-100.0 [facility] Comment on above: Performed By: #### 1 3943514, 4261743, 0380065, 0454614 ####[address] [address] Platelet mean volume (Bld) [Entitic vol] 8.1 fL Normal 6.4-10.8 [facility] Comment on above: Performed By: #### 1 0395890, 1439838, 7198654, 7766904 ####[address] Platelets (Bld) [#/Vol] 156.0 E9/L Normal 150.0-500.0 [facility] Comment on above: Performed By: #### 1 5415165, 2350310, 8491721, 3658902 ####[address] RBC (Bld) [#/Vol] 3.3 E12/L Low 4.3-5.9 [facility] Comment on above: Performed By: #### 1 5243999, 2896754, 5157997, 9558461 ####[address] [address] WBC corrected for nucl RBC Auto (Bld) [#/Vol] 5.0 E9/L Normal 4.0-11.0 [facility] Comment on above: Performed By: #### 1 5568476, 1864692, 9915635, 4966057 ####[facility] [address] [place] [address] CHEMISTRYOrdered By: Bren ROP User on 04-30-2023 Glucose [Mass/Vol] 250 mg/dL High 55 - 99 mg/dL [facility] [place] Sub[place] Comment on above: Result Comment: Christine godwin RN/ POC Username GILSON SARMIENTO Invalid Interpretation Code [facility] [place] Subsection Sodium [Moles/Vol] 144279671195 mmol/L Invalid Interpretation Code [facility] [place] Subsection Sodium [Moles/Vol] 372236955 mmol/L Invalid Interpretation Code [facility] [place] Subsection CHEMISTRYOrdered By: SYSTEM SYSTEM on 04-30-2023 Anion gap [Moles/Vol] 8 mmol/L Normal 6 - 16 mEq/L F C Remisol Calcium [Mass/Vol] 8.8 mg/dL Low 8.9 - 11. 1 mg/dL [facility] Remisol Chloride [Moles/Vol] 105 mmol/L Normal 101 - 1 11 mmol/L [facility] Remisol CO2 [Moles/Vol] 31 mmol/L Normal 21 - 31 mmol/L FT Remisol Creatinine [Mass/Vol] 1.0 mg/dL Normal 0.5 - 1.3 mg/dL [facility] Remisol GFR/1.73 sq M.predicted among non-blacks MDRD (S/P/Bld) [Vol rate/Area] 87 mL/min/1.73 m2 Normal >=59mL/min/1 .73 m2 [facility] S Comment on above: Interpretive Data: C hronic kidney disease could be indicated at eGFR's of less than 60 mL/min/1.73m2. Kidney failure is indicated at less than 15 mL/min/1.73m2. Glucose [Mass/Vol] 172 mg/dL Normal 55 - 199 mg/dL [facility] Comment on above: Interpretive Data: I f this glucose result represents a fasting glucose, interpretation should refer to the following reference range: 55-99 mg/dL Potassium [Moles/Vol] 3.9 mmol/L Normal 3.5 - 5.3 mmol/L [facility] Remisol Sodium [Moles/Vol] 140 mmol/L Normal 135 - 145 mmol/L [facility] Remisol Urea nitrogen [Mass/Vol] 14 mg/dL Normal 5 - 21 mg/dL [facility] Remisol Urea nitrogen/Creatinine [Mass ratio] 14 mg/mg Normal 10 - 20 [facility] [place] Abdomen/Pelvis w/ Contras ton 04-30-2023 [...] No mass or splenomegaly. Adrenals: No mass. Kidneys/mesentery/per itoneum/retroperitone um: Crescentic near circumferential hyperdense collection surrounding the [...] Oral contrast amount in ml's: 0 Normal [facility] Capillary Glucose POCon 12-0 Glucose [Mass/Vol] 250 mg/dL High 55-99 [facility] Comment on above: Result Comment: Christine PHILLIPS Performed By: #### 2 [id number] ####[facility] [address] [place] [address] Glucose [Mass/Vol] 191 mg/dL High 55-99 [facility] Comment on above: Result Comment: Christine PHILLIPS Performed By: #### 2 [id number] ####[facility] [address] [place] [address] Glucose [Mass/Vol] 196 mg/dL High 55- [facility] Comment on above: Result Comment: Christine PHILLIPS Performed By: #### 1 [id number], 75117065, 8243734, 44508743 #### [facility] [address] [place] [address] Glucose [Mass/Vol] 150 mg/dL High 55- [facility] Comment on above: Result Comment: Christine PHILLIPS Performed By: #### 1 [id number] #### [facility] [address] [place] [address] Glucose [Mass/Vol] 154 mg/dL High 55-99 [facility] Comment on above: Result Comment: Lucina edison Meter Performed By: #### 1 [id number] #### [facility] [address] [place] [address] Glucose [Mass/Vol] 211 mg/dL High 55-99 [facility] Comment on above: Result Comment: Christine PHILLIPS Performed By: #### 1 5426366, 34829780, 6142661, 28212925 #### [facility] [address] [place] [address] HEMATOLOGYOrdered By: Jack Livingston on 04-30-2023 Hematocrit (Bld) [Volume fraction] 26.3 % Low 37.7 - 49.0 % [facility] HemeAutoSS Hemoglobin (Bld) [Mass/Vol] 9.2 g/dL Low 13.5 - 17.5 gm/dL [facility] HemeAutoSS HEMATOLOGYOrdered By: SYSTEM SYSTEM on 04-30-2023 Basophils/100 WBC (Bld) 0.4 % Normal 0.0 - 2.0 % [facility] HemeAutoSS Basophils/Leukocytes Auto (Bld) [Pure # fraction] 0.0 E9/L Normal 0.0 - 0.2 E9/L [facility] HemeAutoSS Eosinophils/100 WBC (Bld) 2.3 % Normal 0.0 - 8.0 % [facility] HemeAuto[facility] Eosinophils/Leukocytes Auto (Bld) [Pure # fraction] 0.1 E9/L Normal 0.0 - 0.5 E9/L [facility] HemeAutoSS Lymphocytes/100 WBC (Bld) 26.8 % Normal 14.0 - 50.0 % [facility]eAuto[facility] Lymphocytes/Leukocytes Auto (Bld) [Pure # fraction] 1.3 E9/L Normal 1.0 - 4.0 E9/L [facility] HemeAutoSS Monocytes/100 WBC (Bld) 8.9 % Normal 4.0 - 14.0 % [facility] HemeAuto[facility] Monocytes/Leukocytes Auto (Bld) [Pure # fraction] 0.4 E9/L Normal 0.2 - 1.0 E9/L [facility] Neutrophils/100 WBC (Bld) 61.6 % Normal 36.0 - 75.0 % [facility]eAuto[facility] Neutrophils/Leukocytes Auto (Bld) [Pure # fraction] 3.1 E9/L Normal 2.0 - 7.5 E9/L [facility] HemeAuto[facility] HEMATOLOGYOrdered By: Christa Calhoun on 04-30-2023 Erythrocyte distribution width (RBC) [Ratio] 13.7 % Normal 10.9 - 14.2 % [facility] MCH (RBC) [Entitic mass] 28.5 pg Normal 27.0 - 34.0 pg [facility] MCHC (RBC) [Mass/Vol] 34.5 g/dL Normal 31.4 - 36.0 gm/dL [facility] MCV (RBC) [Entitic vol] 82.5 fL Normal 80.0 - 100.0 fL [facility]eAuto[facility] Platelet mean volume (Bld) [Entitic vol] 8.1 fL Normal 6.4 - 10.8 fL [facility]eAuto[facility] Platelets (Bld) [#/Vol] 156.0 E9/L Normal 150.0 - 500.0 E9/L [facility] RBC (Bld) [#/Vol] 3.3 E12/L Low 4.3 - 5.9 E12/L [facility] WBC corrected for nucl RBC Auto (Bld) [#/Vol] 5.0 E9/L Normal 4.0 - 11.0 E9/L [facility] Hct & Hgbon 04-30-2023 Hematocrit (Bld) [Volume fraction] 30.1 % Low 37.7-49.0 [facility] Comment on above: Performed By: #### 1 [id number] #### [facility] [address] [place] [address] Hemoglobin (Bld) [Mass/Vol] 10.4 g/dL Low 13.5-17.5 [facility] Comment on above: Performed By: #### 1 [id number] #### [facility] [address] [place] [address] Hematocrit (Bld) [Volume fraction] 30.2 % Low 37.7-49.0 [facility] Comment on above: Performed By: #### 1 6472919, 35097855, 9562854, 51798317 #### [facility] [address] [place] [address] Hemoglobin (Bld) [Mass/Vol] 10.4 g/dL Low 13.5-17.5 [facility] Comment on above: Performed By: #### 1 0428532, 17989555, 3930056, 23396056 #### [facility] [address] [place] [address] Hematocrit (Bld) [Volume fraction] 26.5 % Low 37.7-49.0 [facility] Comment on above: Performed By: #### 2 [id number] #### [facility] [address] [place] [address] Hemoglobin (Bld) [Mass/Vol] 9.3 g/dL Low 13.5-17.5 [facility] Comment on above: Performed By: #### 2 [id number] #### [facility] [address] [place] [address] Interdisciplinary Note - Mauricio e Manageron 04-30-2023 Interdisciplinary Note - Statistical Technician CRM to room to discuss DC Planning. Patient is awake, alert and oriented. Patient is from home with his spouse, she will transport at [place]. Patient verified PCP, home DME and insurance. Patient on 04/27 had a Right ESWL came back in 04/28 with a retroperitoneal Hematoma. Patient got blood transfusion on 04/29. Patient is assigned to [facility] , see notes. Patient has urology consult. Patient denied any DC need from CRM for HH, DME and PM. Patient was provided CRM contact, white board updated. Anticipated DC TBD. CRM following Normal [facility] Comment on above: Result Comment: Elec tronically Signed By: Sarah Choi\.br\Date and Time Signed: 04/30/23 13:30 EST Monitor Recordon 04-30-2023 Monitor Record [id number]# 1.00TIFF Normal [facility] Monitor Record [id number]# 1.00TIFF Normal [facility] Monitor Record [id number]# 1.00TIFF Normal [facility] Progress Note-Physicianon Progress Note-Physician Patient: JANICE [...] Type 2 diabetes mellitus / SNOMED CT 248498595 / Confirmed Coronary artery disease / SNOMED CT 97971339 / Confirmed Anxiety / SNOMED CT 85221763 / Confirmed Hypertensive disorder / SNOMED CT 3058674597 / Confirmed Long-term current use of anticoagulant / SNOMED CT 9954903903 / Confirmed Personal history of malignant melanoma of skin / SNOMED CT 0427004601 / Confirmed Plaque psoriasis / SNOMED CT 885093009 / Confirmed Psoriatic arthritis / SNOMED CT 938000096 / Confirmed ST elevation myocardial infarction involving left anterior descending coronary artery / SNOMED CT 31847030 / Confirmed Kidney stones / SNOMED CT 158877485 / Confirmed BPH (benign prostatic hyperplasia) / SNOMED CT 529045940 / Confirmed Aspirin long-term use / SNOMED CT 2809682488 / Confirmed Degenerative joint disease / SNOMED CT 4592936087 / Confirmed Arthritis / SNOMED CT 5725915 / Confirmed Glaucoma / SNOMED CT 79148676 / Confirmed Depression / SNOMED CT 65079479 / Confirmed Intermittent chest pain / SNOMED CT 42511110 / Confirmed High blood pressure / SNOMED CT 6014230672 / Confirmed Histories Past Medical History: Resolved STEMI - ST elevation myocardial infarction (7172667654): Onset on 12/26/2019 at 54 years. Resolved. Diabetes type (5174594688): Resolved. Family History: Diabetes mellitus type 1 Father Prostate cancer Father Procedure history: Total RIGHTknee arthroplasty (9731583414) on 02/07/2023 at 57 Years. Cardiac catheterisation (061761117) on 02/24/2020 at 54 Years. PCI - Percutaneous coronary intervention (7527085320) on 12/26/2019 at 54 Years. Coronary artery stent (9930167517) on 12/26/2019 at 54 Years. 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 Cystoscopy (0307511269) on 07/26/2018 at 52 Years. Radiofrequency ablation SI joint (7673594130) on 09/22/2017 at 51 Years. Laser of prostate w/ green light pvp (709271673) on 07/12/2017 at 51 Years. Cystourethroscopy with dilation of urethral stricture (168992648) on 06/08/2017 at 51 Years. 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 Comments: 12/26/2019 9:24 Lesvia Robbins RN rotater cuff Fracture of hand with metal pins (95225711) in 2003 at 38 Years. Tonsillectomy (467816695) in 2001 at 36 Years. ACL - Anterior cruciate ligament deficiency (412939340) in 1978 at 13 Years. Femur (659607107) in 1973 at 8 Years. Comments: 12/26/2019 [...] Cap 196 mg/dL HI POC Device SN [id number] POC User ID [id number] POC Username POC Username 04/30/2023 11:04 EST HGB 10.4 gm/dL LOW Hct 30.2 % LOW 04/30/2023 7:56 EST Glucose Cap 150 mg/dL HI POC Device SN [id number] POC User ID [id number] POC Username POC Username 04/30/2023 6:25 EST Glucose Cap 154 mg/dL HI POC Device SN [id number] POC User ID [id number] POC Username RD CRUMP 04/30/2023 5:53 EST WBC 5.0 E9/L RBC 3.3 E12/L LOW HGB 9.3 gm/dL LOW HGB 9.4 gm/dL LOW Hct 26.5 % LOW Hct 27.2 % LOW MCV 82.5 fL MCH 28.5 pg MCHC 34.5 gm/dL RDW 13.7 % Platelet 156.0 E9/L MPV 8.1 (more content not included)... Normal [facility] Comment on above: Result Comment: Elec tronically Signed By: PRISCA ACOSTA, Sean Michaud.br\Date and Time Signed: 04/30/23 14:56 EST eGFRon 04-30-2023 GFR/1.73 sq M.predicted among non-blacks MDRD (S/P/Bld) [Vol rate/Area] 87 mL/min/1.73 m2 Normal >=59 [facility] Comment on above: Order Comment: Order added by Discern Expert. Result Comment: Criminal Analyst juliana kidney disease could be indicated at eGFR's of less than 60 mL/min/1.73m2. Kidney failure is indicated at less than 15 mL/min/1.73m2. Performed By: #### 2 [id number] #### [facility] [address] [place] [address] ABO/Rhon 04-29-2023 ABO/Rh Positive Invalid Interpretation Code [facility] Comment on above: Performed By: #### 1 [id number], 32626785, 0321338, 77061001 ####[facility] [address] [place] [address] ABO/Rh History Checkon 04-29 ABO/Rh History Check Verified Hx Blood Type Normal [facility] Comment on above: Performed By: #### 1 0479586, 11740455, 5654502, 49570533 ####[facility] [address] [place] [address] ABSCon 04-29-2023 ABSC Gel Interp Negative Normal [facility] Comment on above: Performed By: #### 1 8690807, 38507169, 0410800, 97743511 ####[facility] [address] [place] [address] Auto Diffon 04-29-2023 Basophils/100 WBC (Bld) 0.5 % Normal 0.0-2.0 [facility] Comment on above: Order Comment: Order Added by Discern Expert. Performed By: #### 1 [id number] #### [facility] [address] [place] [address] Basophils/Leukocytes Auto (Bld) [Pure # fraction] 0.0 E9/L Normal 0.0-0.2 [facility] Comment on above: Order Comment: Order Added by Discern Expert. Performed By: #### 1 [id number] #### [facility] [address] [place] [address] Eosinophils/100 WBC (Bld) 1.0 % Normal 0.0-8.0 [facility] Comment on above: Order Comment: Order Added by Discern Expert. Performed By: #### 1 [id number] #### [facility] [address] [place] [address] Eosinophils/Leukocytes Auto (Bld) [Pure # fraction] 0.1 E9/L Normal 0.0-0.5 [facility] Comment on above: Order Comment: Order Added by Discern Expert. Performed By: #### 1 [id number] #### [facility] [address] [place] [address] Lymphocytes/100 WBC (Bld) 31.6 % Normal 14.0-50.0 [facility] Comment on above: Order Comment: Order Added by Discern Expert. Performed By: #### 1 [id number] #### [facility] [address] [place] [address] Lymphocytes/Leukocytes Auto (Bld) [Pure # fraction] 1.9 E9/L Normal 1.0-4.0 [facility] Comment on above: Order Comment: Order Added by Discern Expert. Performed By: #### 1 [id number] #### [facility] [address] [place] [address] Monocytes/100 WBC (Bld) 9.5 % Normal 4.0-14.0 [facility] Comment on above: Order Comment: Order Added by Discern Expert. Performed By: #### 1 [id number] #### [facility] [address] [place] [address] Monocytes/Leukocytes Auto (Bld) [Pure # fraction] 0.6 E9/L Normal 0.2-1.0 [facility] Comment on above: Order Comment: Order Added by Discern Expert. Performed By: #### 1 [id number] #### [facility] [address] [place] [address] Neutrophils/100 WBC (Bld) 57.4 % Normal 36.0-75.0 [facility] Comment on above: Order Comment: Order Added by Discern Expert. Performed By: #### 1 [id number] #### [facility] [address] [place] [address] Neutrophils/Leukocytes Auto (Bld) [Pure # fraction] 3.5 E9/L Normal 2.0-7.5 [facility] Comment on above: Order Comment: Order Added by Discern Expert. Performed By: #### 1 [id number] #### [facility] [address] [place] [address] BLOOD BANKOrdered By: Christa Calhoun on 04-29-2023 ABO/Rh Interp Positive Invalid Interpretation Code [facility] [place] Subsection ABSC Gel Interp Negative (04/29/23 2:38 PM) Normal [facility] BB Subsection BMPon 04-29-2023 Creatinine [Mass/Vol] 1.2 mg/dL Normal 0.5-1.3 [facility] Comment on above: Order Comment: Johnna wing to hear from if this can be added on to AM labs. HH Performed By: #### 1 [id number] #### [facility] [address] [place] [address] Urea nitrogen [Mass/Vol] 18 mg/dL Normal 5-21 [facility] Comment on above: Order Comment: Marki ng to hear from if this can be added on to AM labs. HH Performed By: #### 1 [id number] #### [facility] [address] [place] [address] Urea nitrogen/Creatinine [Mass ratio] 15 No Units Normal 10-20 [facility] Comment on above: Order Comment: Waiti ng to hear from if this can be added on to AM labs. HH Performed By: #### 1 [id number] #### [facility] [address] [place] [address] Anion gap [Moles/Vol] 8 mmol/L Normal 6-16 [facility] Comment on above: Order Comment: Marki ng to hear from if this can be added on to AM labs. HH Performed By: #### 1 [id number] #### [facility] [address] [place] [address] Calcium [Mass/Vol] 8.5 mg/dL Low 8.9-11.1 [facility] Comment on above: Order Comment: Marki ng to hear from if this can be added on to AM labs. HH Performed By: #### 1 [id number] #### [facility] [address] [place] [address] Chloride [Moles/Vol] 104 mmol/L Normal 101-111 [facility] Comment on above: Order Comment: Marki ng to hear from if this can be added on to AM labs. HH Performed By: #### 1 [id number] #### [facility] [address] [place] [address] CO2 [Moles/Vol] 29 mmol/L Normal 21-31 [facility] Comment on above: Order Comment: Marki ng to hear from if this can be added on to AM labs. HH Performed By: #### 1 [id number] #### [facility] [address] [place] [address] Glucose [Mass/Vol] 165 mg/dL Normal 55-199 [facility] Comment on above: Order Comment: Johnna wing to hear from if this can be added on to AM labs. HH Result Comment: If t his glucose result represents a fasting glucose, interpretation should refer to the following reference range: 55-99 mg/dL Performed By: #### 1 [id number] #### [facility] [address] [place] [address] Potassium [Moles/Vol] 4.0 mmol/L Normal 3.5-5.3 [facility] Comment on above: Order Comment: Johnna wing to hear from if this can be added on to AM labs. HH Performed By: #### 1 [id number] #### [facility] [address] [place] [address] Sodium [Moles/Vol] 137 mmol/L Normal 135-145 [facility] Comment on above: Order Comment: Johnna wing to hear from if this can be added on to AM labs. HH Performed By: #### 1 [id number] #### [facility] [address] [place] [address] Anion gap [Moles/Vol] 8 mmol/L Normal 6-16 [facility] Comment on above: Order Comment: dakota robins had an H&H drawn at 300am and has q 6 hour [facility] 04/29/2023 03:19:14 EST Performed By: #### 1 [id number] #### [facility] [address] [place] [address] Calcium [Mass/Vol] 8.6 mg/dL Low 8.9-11.1 [facility] Comment on above: Order Comment: dakota robins had an H&H drawn at 300am and has q 6 hour [facility] 04/29/2023 03:19:14 EST Performed By: #### 1 [id number] #### [facility] [address] [place] [address] Chloride [Moles/Vol] 104 mmol/L Normal 101-111 [facility] Comment on above: Order Comment: dakota robins had an H&H drawn at 300am and has q 6 hour orders [facility] 04/29/2023 03:19:14 EST Performed By: #### 1 [id number] #### [facility] [address] [place] [address] CO2 [Moles/Vol] 27 mmol/L Normal 21-31 [facility] Comment on above: Order Comment: dakota robins had an H&H drawn at 300am and has q 6 hour orders [facility] 04/29/2023 03:19:14 EST Performed By: #### 1 [id number] #### [facility] [address] [place] [address] Creatinine [Mass/Vol] 1.2 mg/dL Normal 0.5-1.3 [facility] Comment on above: Order Comment: dakota robins had an H&H drawn at 300am and has q 6 hour [facility] 04/29/2023 03:19:14 EST Performed By: #### 1 [id number] #### [facility] [address] [place] [address] Glucose [Mass/Vol] 181 mg/dL Normal 55-199 [facility] Comment on above: Order Comment: dakota robins had an H&H drawn at 300am and has q 6 hour [facility] 04/29/2023 03:19:14 EST Result Comment: If t his glucose result represents a fasting glucose, interpretation should refer to the following reference range: 55-99 mg/dL Performed By: #### 1 [id number] #### [facility] [address] [place] [address] Potassium [Moles/Vol] 4.1 mmol/L Normal 3.5-5.3 [facility] Comment on above: Order Comment: dakota robins had an H&H drawn at 300am and has q 6 hour [facility] 04/29/2023 03:19:14 EST Performed By: #### 1 [id number] #### [facility] [address] [place] [address] Sodium [Moles/Vol] 135 mmol/L Normal 135-145 [facility] Comment on above: Order Comment: dakota robins had an H&H drawn at 300am and has q 6 hour orders [facility] 04/29/2023 03:19:14 EST Performed By: #### 1 [id number] #### [facility] [address] [place] [address] Urea nitrogen [Mass/Vol] 19 mg/dL Normal 5-21 [facility] Comment on above: Order Comment: dakota robins had an H&H drawn at 300am and has q 6 hour orders [facility] 04/29/2023 03:19:14 EST Performed By: #### 1 [id number] #### [facility] [address] [place] [id number] Urea nitrogen/Creatinine [Mass ratio] 16 No Units Normal 10-20 [facility] Comment on above: Order Comment: dakota robins had an H&H drawn at 300am and has q 6 hour [facility] 04/29/2023 03:19:14 EST Performed By: #### 1 [id number] #### [facility] [address] [place] [id number] Blood Bank ID#on 04-29-2023 BBID# [id number] Invalid Interpretation Code [facility] Comment on above: Performed By: #### 1 [id number] ####[facility] [address] [place] [address] CBC w/ Auto Diffon 3 Erythrocyte distribution width (RBC) [Ratio] 14.0 % Normal 10.9-14.2 [facility] Comment on above: Order Comment: Spoke with Violetta Gabriel Do not need CBC and H&H ...Run off extra Lav from AM labs Performed By: #### 1 [id number] #### [facility] [address] [place] [address] Hematocrit (Bld) [Volume fraction] 22.5 % Low 37.7-49.0 [facility] Comment on above: Order Comment: Spoke with Violetta Gabriel Do not need CBC and H&H ...Run off extra Lav from AM labs Performed By: #### 1 [id number] #### [facility] [address] [place] [address] Hemoglobin (Bld) [Mass/Vol] 7.7 g/dL Low 13.5-17.5 [facility] Comment on above: Order Comment: Spoke with Violetta Gabriel Do not need CBC and H&H ...Run off extra Lav from AM labs Performed By: #### 1 [id number] #### [facility] [address] [place] [address] MCH (RBC) [Entitic mass] 28.3 pg Normal 27.0-34.0 [facility] Comment on above: Order Comment: Spoke with Violetta Gabriel Do not need CBC and H&H ...Run off extra Lav from AM labs Performed By: #### 1 [id number] #### [facility] [address] [place] [address] MCHC (RBC) [Mass/Vol] 34.3 g/dL Normal 31.4-36.0 [facility] Comment on above: Order Comment: Spoke with Violetta Gabriel Do not need CBC and H&H ...Run off extra Lav from AM labs Performed By: #### 1 [id number] #### [facility] [address] [place] [address] MCV (RBC) [Entitic vol] 82.4 fL Normal 80.0-100.0 [facility] Comment on above: Order Comment: Spoke with Violetta Gabriel Do not need CBC and H&H ...Run off extra Lav from AM labs Performed By: #### 1 [id number] #### [facility] [address] [place] [address] Platelet mean volume (Bld) [Entitic vol] 8.7 fL Normal 6.4-10.8 [facility] Comment on above: Order Comment: Spoke with Violetta Gabriel Do not need CBC and H&H ...Run off extra Lav from AM labs Performed By: #### 1 [id number] #### [facility] [address] [place] [address] Platelets (Bld) [#/Vol] 147.0 E9/L Low 150.0-500.0 [facility] Comment on above: Order Comment: Spoke with Violetta Gabriel Do not need CBC and H&H ...Run off extra Lav from AM labs Performed By: #### 1 [id number] #### [facility] [address] [place] [address] RBC (Bld) [#/Vol] 2.7 E12/L Low 4.3-5.9 [facility] Comment on above: Order Comment: Spoke with Violetta Gbariel Do not need CBC and H&H ...Run off extra Lav from AM labs Performed By: #### 1 [id number] #### [facility] [address] [place] [address] WBC corrected for nucl RBC Auto (Bld) [#/Vol] 6.0 E9/L Normal 4.0-11.0 [facility] Comment on above: Order Comment: Spoke with Violetta Gabriel Do not need CBC and H&H ...Run off extra Lav from AM labs Performed By: #### 1 [id number] #### [facility] [address] [place] [address] CHEMISTRYOrdered By: SYSTEM SYSTEM on 04-29-2023 Anion gap [Moles/Vol] 8 mmol/L Normal 6 - 16 mEq/L [facility] [place]isol Calcium [Mass/Vol] 8.5 mg/dL Low 8.9 - 11. 1 mg/dL [facility] [place] Chloride [Moles/Vol] 104 mmol/L Normal 101 - 1 11 mmol/L [facility] [place] CO2 [Moles/Vol] 29 mmol/L Normal 21 - 31 mmol/L [facility] [place] [facility] Creatinine [Mass/Vol] 1.2 mg/dL Normal 0.5 - 1.3 mg/dL [facility] [place] [facility] GFR/1.73 sq M.predicted among non-blacks MDRD (S/P/Bld) [Vol rate/Area] 70 mL/min/1.73 m2 Normal >=59mL/min/1 .73 m2 [facility] [place] [facility] Comment on above: Interpretive Data: [...] Magnesium [Mass/Vol] 1.5 mg/dL Normal 1.3 - 2 .4 mg/dL [facility] Potassium [Moles/Vol] 4.0 mmol/L Normal 3.5 - 5.3 mmol/L [facility] Sodium [Moles/Vol] 137 mmol/L Normal 135 - 145 mmol/L [facility] Urea nitrogen [Mass/Vol] 18 mg/dL Normal 5 - 21 mg/dL [facility] Urea nitrogen/Creatinine [Mass ratio] 15 mg/mg Normal 10 - 20 [facility] Anion gap [Moles/Vol] 8 mmol/L Normal 6 - 16 mEq/L [facility] [place]isol Calcium [Mass/Vol] 8.6 mg/dL Low 8.9 - 11. 1 mg/dL [facility] Chloride [Moles/Vol] 104 mmol/L Normal 101 - 1 11 mmol/L [facility] CO2 [Moles/Vol] 27 mmol/L Normal 21 - 31 mmol/L [facility] [place] [facility] Creatinine [Mass/Vol] 1.2 mg/dL Normal 0.5 - 1.3 mg/dL [facility] [place] Remisol GFR/1.73 sq M.predicted among non-blacks MDRD (S/P/Bld) [Vol rate/Area] 70 mL/min/1.73 m2 Normal >=59mL/min/1 .73 m2 [facility] [place] [facility] Comment on above: Interpretive Data: C hronic kidney disease could be indicated at eGFR's of less than 60 mL/min/1.73m2. Kidney failure is indicated at less than 15 mL/min/1.73m2. Glucose [Mass/Vol] 181 mg/dL Normal 55 - 199 mg/dL [facility] [place] [facility] Comment on above: Interpretive Data: I f this glucose result represents a fasting glucose, interpretation should refer to the following reference range: 55-99 mg/dL Potassium [Moles/Vol] 4.1 mmol/L Normal 3.5 - 5.3 mmol/L [facility] Sodium [Moles/Vol] 135 mmol/L Normal 135 - 145 mmol/L [facility] Troponin I.cardiac [Mass/Vol] 29.60 pg/mL Normal 15.90 - 38.40 pg/mL [facility] [place] [facility] Comment on above: Interpretive Data: T he 95% CI (Confidence Interval) PPV (Positive Predictive Value) for myocardial infarction in females is 38 pg/mL, in males 51 pg/mL. The results should be used in conjunction with clinical conditions of myocardial infarction. ([employer] High Sensitivity Troponin I Instructions For Use, [employer], December 2017) Urea nitrogen [Mass/Vol] 19 mg/dL Normal 5 - 21 mg/dL [facility] Urea nitrogen/Creatinine [Mass ratio] 16 mg/mg Normal 10 - 20 [facility] [place] [facility]isol Troponin I.cardiac [Mass/Vol] 22.70 pg/mL Normal 15.90 - 38.40 pg/mL [facility] [place] [facility] Comment on above: Interpretive Data: T he 95% CI (Confidence Interval) PPV (Positive Predictive Value) for myocardial infarction in females is 38 pg/mL, in males 51 pg/mL. The results should be used in conjunction with clinical conditions of myocardial infarction. ([employer] High Sensitivity Troponin I Instructions For Use, [employer], December 2017) Troponin I.cardiac [Mass/Vol] 21.10 pg/mL Normal 15.90 - 38.40 pg/mL [facility] [place] [facility] Comment on above: Interpretive Data: T he 95% CI (Confidence Interval) PPV (Positive Predictive Value) for myocardial infarction in females is 38 pg/mL, in males 51 pg/mL. The results should be used in conjunction with clinical conditions of myocardial infarction. ([employer] High Sensitivity Troponin I Instructions For Use, [employer], December 2017) CHEMISTRYOrdered By: Hunter Culver on 04-29-2023 HbA1c (Bld) [Mass fraction] 8.2 % High <=5.9% [facility] Abdomen/Pelvis w/ Contras ton 04-29-2023 [...] or splenomegaly. Adrenals: No mass. Kidneys and mesentery/peritoneum/ retroperitoneum: Crescentic near circumferential hyperdense collection surrounding the [...] REPORT Dictated: 04/29/2023 10:49 am Josh Land MD Signed (Electronic Signature): 04/29/2023 10:49 am Signed by: Josh Land MD Transcribed by: NATALIE Technologist: MARYLIN Technical Comments GFR (mL/min/1/73m2) 53 Contrast: Isovue 370 Contrast amount in ml's: 100 Rectal Contrast Given? No Oral contrast amount in ml's: 0 Normal [facility] CTA Cheston 04-29-2023 CTA Chest Exam [...] performed and separately dictated CT. Ordering Provider: Doug Tafoya FINAL REPORT Dictated: 04/29/2023 11:07 am Josh Land MD Signed (Electronic Signature): 04/29/2023 11:07 am Signed by: Josh Land MD Transcribed by: NATALIE Technologist: MARYLIN Technical Comments GFR (mL/min/1/73m2) 53 Contrast: Isovue 370 Contrast amount in ml's: 100 Normal [facility] Capillary Glucose POCon Glucose [Mass/Vol] 175 mg/dL High 55- [facility] Comment on above: Result Comment: Lucina edison Meter Performed By: #### 1 [id number] #### [facility] [address] [place] [address] Glucose [Mass/Vol] 139 mg/dL High - [facility] Comment on above: Result Comment: Christine PHILLIPS Performed By: #### 2 [id number] ####[facility] [address] [place] [address] Glucose [Mass/Vol] 143 mg/dL High [facility] Comment on above: Result Comment: Christine PHILLIPS Performed By: #### 2 [id number] ####[facility] [address] [place] [address] Glucose [Mass/Vol] 162 mg/dL High - [facility] Comment on above: Result Comment: Christine PHILLIPS Performed By: #### 2 [id number] ####[facility] [address] [place] [address] Glucose [Mass/Vol] 168 mg/dL High - [facility] Comment on above: Result Comment: Lucina edison Meter Performed By: #### 7 [id number] #### [facility] [address] [place] [address] Glucose [Mass/Vol] 278 mg/dL High 55-99 [facility] Comment on above: Result Comment: Christine godwin RN/ Performed By: #### 1 [id number] #### [facility] [address] [place] [address] Consultation Noteon 04-29-20 Consultation Note Patient: JANICE SMTYH Age: 57 years Sex: Male : 1965 Associated Diagnoses: None Author: Sean COPE MD Chief Complaint 04/29/2023 0:07 EST CP and abdominal pain 04/28/2023 20:38 EST Pt. came here d/t chest pain moves to both shoulder and back, SOB that started today. Pt got Sx ysterday by Dr. cope at [facility], after being deischarge he felt lightheaded and [...] Daily, # 90 tab(s), Refills(s) 3, Pharmacy: [facility], 186, cm, 10/20/20 11:38:00 EDT, Height/Length Dosing, 96, kg, 10/20/20 11:38:00 EDT, Weight Dosing losartan 100 mg Tab: 100 mg = 1 tab(s), Oral, Daily, # 90 tab(s), Refills(s) 2, [id number], 188, cm, 01/16/23 7:42:00 EDT, Height/Length Dosing, 97, kg, 01/16/23 7:42:00 EDT, Weight Dosing nitroglycerin 0.4 mg sublingual Tab: 0.4 mg = 1 tab(s), SubLingual, q5min, PRN Chest pain, not to exceed 3 doses/15 min--if pain persists, seek medical attention, # 30 tab(s), Refills(s) 0, [id number], 185.4, cm, 02/21/20 20:48:00 EDT, Height/Length [...] drop(s), OPTH, Once a day (at bedtime) magnes (more content not included)... Normal [facility] Comment on above: Result Comment: Elec tronically Signed By: PRISCA ACOSTA, Sean Michaud.br\Date and Time Signed: 04/29/23 12:47 EST ED Clinical Summaryon 2022 ED Clinical Summary [place] [id number] ED Clinical Summary Person Information Name: JANICE SMYTH [facility] Age: 57 Years : 1965 Sex: Male Language: Chadian PCP: ANTONIO KITCHEN DO Marital Status: Visit Id: Visit Reason: Dizziness; Shortness of breath; Chest pain; CHEST PAIN Speciality: Acuity: 2 Enc Type: Observation Med Service: Emergency Arrival: 04/28/2023 20:35:17 Discharge: LOS: 000 02:56 Checkin: 04/28/2023 20:35:17 Checkout: 04/28/2023 23:31:43 Dispo Type: Admitted as IP to this [facility] EVENTS: Event Name Event Status Request Date/Time [...] 04/28/2023 23:30:25 04/28/2023 23:30:25 04/28/2023 23:30:25 ADDRESS: [facility] [address] [place] [id number] [facility] DOC NOTES: MEDICAL INFORMATION: Prescriptions Given: [...] Chest pain; Perinephric hematoma; Retroperitoneal hematoma Normal [facility] ED Note-Physicianon 04-29-20 ED Note-Physician Basic Information Time Seen: Michelet ROTH Doug Rudy 04/28/2023 20:38 Chief Complaint Pt. came here d/t chest pain moves to both shoulder and back, SOB that started today. Pt got Sx ysterday by Dr. cope at [facility], after being deischarge he felt lightheaded and dizzy the whole night. Hx of NH 2019, got stent put in. Got 1 nitro History of Present Illness Patient is a 57-year-old male with a history of NH with stent placed in 2019, HTN, hyperlipidemia, [...] a lithotripsy yesterday with Dr. Cope (at [facility]) and since that procedure, he endorses some [...] and Complexity of Problems Differential Diagnosis: [] [facility] Data External documents reviewed: [] My EKG [...] 61 minute(s), (more content not included)... Normal [facility] Comment on above: Result Comment: Elec tronically Signed By: Doug Tafoya DO\.br\Date and Time Signed: 04/28/23 23:07 EST ED Patient Education Noteon 04-29-2023 ED Patient Education Note Normal [facility] ED Patient Summaryon 023 ED Patient Summary [place] [id number] Patient Discharge Instructions Person Information Name: JANICE SMYTH Age: 57 Years Arrival Date: 04/28/2023 20:35:17 Discharge Diagnosis: Chest pain; Perinephric hematoma; Retroperitoneal hematoma Primary Care Physician: ANTONIO KITCHEN DO Provider Information Primary Provider: Doug Tafoya DO Advanced T[employer] Keller Operator:None The exam and treatment you received in the Emergency Department were for an urgent problem and are not intended as complete care. It is important that you follow up with a doctor, nurse practitioner, or physician?s clinical physician assistant for ongoing care. If your symptoms become [...] opioids can be used to help relieve tkdklysc-mn-zqegdh pain and are often prescribed following a [...] guidance from the Food and Drug Administration (www.fda.gov/Drugs/Re sourcesForYou). ? Visit www.cdc.gov/drugoverd ose to learn about the risks of opioids abuse and overdose. ? If you believe you may be struggling with addiction, tell your health patient care manager and ask for guidance or call SAMHSA?S National Helpline at 4-648-960-ZDWH. v Source: [place] Department of Health and Human Services/Center for Disease Control & Prevention [facility] Medications Giv (more content not included)... Normal [facility] EMS Documentationon 04-29-20 23 EMS Documentation Please click on link to see report [facility] Comment on above: Result Comment: Miss ing Attachment - total size limit for all attachments exceeded [email or web address] Can be viewed in source system [employer]Tell Videoon [employer] Education Video Yes Patient Avoiding Infections in the Hospital Normal [facility] HEMATOLOGYOrdered By: SYSTEM SYSTEM on 04-29-2023 Basophils/100 WBC (Bld) 0.5 % Normal 0.0 - 2.0 % [facility]eAutoSS Basophils/Leukocytes Auto (Bld) [Pure # fraction] 0.0 E9/L Normal 0.0 - 0.2 E9/L [facility] Eosinophils/100 WBC (Bld) 1.0 % Normal 0.0 - 8.0 % [facility]eAuto[facility] Eosinophils/Leukocytes Auto (Bld) [Pure # fraction] 0.1 E9/L Normal 0.0 - 0.5 E9/L [facility] Lymphocytes/100 WBC (Bld) 31.6 % Normal 14.0 - 50.0 % [facility]eAuto[facility] Lymphocytes/Leukocytes Auto (Bld) [Pure # fraction] 1.9 E9/L Normal 1.0 - 4.0 E9/L [facility] Monocytes/100 WBC (Bld) 9.5 % Normal 4.0 - 14.0 % [facility]eAuto[facility] Monocytes/Leukocytes Auto (Bld) [Pure # fraction] 0.6 E9/L Normal 0.2 - 1.0 E9/L [facility] Neutrophils/100 WBC (Bld) 57.4 % Normal 36.0 - 75.0 % [facility] Neutrophils/Leukocytes Auto (Bld) [Pure # fraction] 3.5 E9/L Normal 2.0 - 7.5 E9/L [facility] HEMATOLOGYOrdered By: Christa Calhoun on 04-29-2023 Erythrocyte distribution width (RBC) [Ratio] 14.0 % Normal 10.9 - 14.2 % [facility] MCH (RBC) [Entitic mass] 28.3 pg Normal 27.0 - 34.0 pg [facility] MCHC (RBC) [Mass/Vol] 34.3 g/dL Normal 31.4 - 36.0 gm/dL [facility] MCV (RBC) [Entitic vol] 82.4 fL Normal 80.0 - 100.0 fL [facility] Platelet mean volume (Bld) [Entitic vol] 8.7 fL Normal 6.4 - 10.8 fL [facility] Platelets (Bld) [#/Vol] 147.0 E9/L Low 150.0 - 500.0 E9/L [facility] [place] [facility] RBC (Bld) [#/Vol] 2.7 E12/L Low 4.3 - 5.9 E12/L [facility] WBC corrected for nucl RBC Auto (Bld) [#/Vol] 6.0 E9/L Normal 4.0 - 11.0 E9/L [facility] Hct & Hgbon 04-29-2023 Hematocrit (Bld) [Volume fraction] 21.1 % Low 37.7-49.0 [facility] Comment on above: Performed By: #### 1 [id number] #### [facility] [address] [place] [address] Hemoglobin (Bld) [Mass/Vol] 7.3 g/dL Low 13.5-17.5 [facility] Comment on above: Performed By: #### 1 [id number] #### [facility] [address] [place] [address] Hematocrit (Bld) [Volume fraction] 21.2 % Low 37.7-49.0 [facility] Comment on above: Performed By: #### 1 [id number] ####[facility] [address] [place] [address] Hemoglobin (Bld) [Mass/Vol] 7.4 g/dL Low 13.5-17.5 [facility] Comment on above: Performed By: #### 1 [id number] ####[facility] [address] [place] [address] Hematocrit (Bld) [Volume fraction] 22.3 % Low 37.7-49.0 [facility] Comment on above: Performed By: #### 2 [id number] #### [facility] [address] [place] [address] Hemoglobin (Bld) [Mass/Vol] 7.7 g/dL Low 13.5-17.5 [facility] Comment on above: Performed By: #### 2 [id number] #### [facility] [address] [place] [address] [id number] 04-29-2023 HbA1c (Bld) [Mass fraction] 8.2 % High <=5.9 [facility] Comment on above: Order Comment: Order placed by EKM rule. [email or web address] [place] Performed By: #### 7 [id number] #### [facility] [address] [place] [address] Interdisciplinary Note - Mauricio e Manageron 04-29-2023 Interdisciplinary Note - Statistical Technician CRM to room to discuss DC Planning. Patient is awake, alert and oriented. Patient is from home with his spouse, she will transport at DC. Patient verified PCP, home DME and insurance. Patient on 04/27 had a Right ESWL came back in 04/28 with a retroperitoneal Hematoma. [facility], see notes. Patient has urology consult. Patient denied any DC need from CRM for HH, DME and PM. Patient was provided CRM contact, white board updated. Anticipated DC TBD. CRM following Normal [facility] Comment on above: Result Comment: Elec tronically Signed By: Sarah Choi\.br\Date and Time Signed: 04/29/23 14:02 EST Magnesiumon 04-29-2023 Magnesium [Mass/Vol] 1.5 mg/dL Normal 1.3-2.4 [facility] Comment on above: Performed By: #### 1 [id number] #### [facility] [address] [place] [address] Monitor Recordon 04-29-2023 Monitor Record [id number]# 1.00TIFF Normal [facility] Monitor Record [id number]# 1.00TIFF Normal [facility] Monitor Record [id number]# 1.00TIFF Normal [facility] RAD - Preliminary Cat Scan R eporton 04-29-2023 RAD - Preliminary Cat Scan Report [id number]# 1.00TIFF Normal [facility] RAD - Preliminary Cat Scan Report [id number]# 1.00TIFF Normal [facility] Comment on above: Other Comment: stat rad read it wrong RCOon 04-29-2023 # of Units 1 Invalid Interpretation Code [facility] Comment on above: Performed By: #### 1 [id number] #### [facility] [address] [place] [address] Date Required 20230429 Invalid Interpretation Code [facility] Comment on above: Performed By: #### 1 [id number] #### [facility] [address] [place] [address] Order to Transfuse Yes Normal [facility] Comment on above: Performed By: #### 1 [id number] #### [facility] [address] [place] [address] Product Type None Required Invalid Interpretation Code [facility] Comment on above: Performed By: #### 1 [id number] #### [facility] [address] [place] [address] # of Units 2 Invalid Interpretation Code [facility] Comment on above: Performed By: #### 1 [id number] #### [facility] [address] [place] [address] Date Required 20230429 Invalid Interpretation Code [facility] Comment on above: Performed By: #### 1 [id number] #### [facility] [address] [place] [address] Order to Transfuse Yes Normal [facility] Comment on above: Performed By: #### 1 [id number] #### [facility] [address] [place] [address] Product Type None Required Invalid Interpretation Code [facility] Comment on above: Performed By: #### 1 [id number] #### [facility] [address] [place] [address] Troponin 3 Hr.on 04-29-2023 Troponin I.cardiac [Mass/Vol] 21.10 pg/mL Normal 15.90-38.40 [facility] Comment on above: Result Comment: The 95% CI (Confidence Interval) PPV (Positive Predictive Value) for myocardial infarction in females is 38 pg/mL, in males 51 pg/mL. The results should be used in conjunction with clinical conditions of myocardial infarction. ([employer] High Sensitivity Troponin I Instructions For Use, [employer], December 2017) Performed By: #### 1 [id number] ####[facility] [address] [place] [address] Troponin 6 Hr.on 04-29-2023 Troponin I.cardiac [Mass/Vol] 22.70 pg/mL Normal 15.90-38.40 [facility] Comment on above: Result Comment: The 95% CI (Confidence Interval) PPV (Positive Predictive Value) for myocardial infarction in females is 38 pg/mL, in males 51 pg/mL. The results should be used in conjunction with clinical conditions of myocardial infarction. ([employer] High Sensitivity Troponin I Instructions For Use, [employer], December 2017) Performed By: #### 1 [id number] #### [facility] [address] [place] [address] Troponin 9 Hr.on 04-29-2023 Troponin I.cardiac [Mass/Vol] 29.60 pg/mL Normal 15.90-38.40 [facility] Comment on above: Result Comment: The 95% CI (Confidence Interval) PPV (Positive Predictive Value) for myocardial infarction in females is 38 pg/mL, in males 51 pg/mL. The results should be used in conjunction with clinical conditions of myocardial infarction. ([employer] High Sensitivity Troponin I Instructions For Use, [employer], December 2017) Performed By: #### 1 [id number] #### [facility] [address] [place] [address] XR Chest Single Viewon 04-29 XR Chest [...] REPORT Dictated: 04/29/2023 9:08 am Josh Land MD. Signed (Electronic Signature): 04/29/2023 9:08 am Signed by: Josh Land MD Transcribed by: NATALIE Technologist: MARYLIN Technical Comments Radiation Dose: Ka,r in mGy = na DAP = na Normal [facility] eGFRon 04-29-2023 GFR/1.73 sq M.predicted among non-blacks MDRD (S/P/Bld) [Vol rate/Area] 70 mL/min/1.73 m2 Normal >=59 [facility] Comment on above: Order Comment: Order added by Discern Expert. Result Comment: Criminal Analyst juliana kidney disease could be indicated at eGFR's of less than 60 mL/min/1.73m2. Kidney failure is indicated at less than 15 mL/min/1.73m2. Performed By: #### 1 [id number] #### [facility] [address] [place] [address] GFR/1.73 sq M.predicted among non-blacks MDRD (S/P/Bld) [Vol rate/Area] 70 mL/min/1.73 m2 Normal >=59 [facility] Comment on above: Order Comment: Order added by Discern Expert. Result Comment: Criminal Analyst juliana kidney disease could be indicated at eGFR's of less than 60 mL/min/1.73m2. Kidney failure is indicated at less than 15 mL/min/1.73m2. Performed By: #### 1 [id number] #### [facility] [address] [place] [address] Auto Diffon 04-28-2023 Basophils/100 WBC (Bld) 0.4 % Normal 0.0-2.0 [facility] Comment on above: Order Comment: Order Added by Discern Expert. Performed By: #### 2 [id number] #### [facility] [address] [place] [address] Basophils/Leukocytes Auto (Bld) [Pure # fraction] 0.0 E9/L Normal 0.0-0.2 [facility] Comment on above: Order Comment: Order Added by Discern Expert. Performed By: #### 2 [id number] #### [facility] [address] [place] [address] Eosinophils/100 WBC (Bld) 0.6 % Normal 0.0-8.0 [facility] Comment on above: Order Comment: Order Added by Discern Expert. Performed By: #### 2 [id number] #### [facility] [address] [place] [address] Eosinophils/Leukocytes Auto (Bld) [Pure # fraction] 0.0 E9/L Normal 0.0-0.5 [facility] Comment on above: Order Comment: Order Added by Discern Expert. Performed By: #### 2 [id number] #### [facility] [address] [place] [address] Lymphocytes/100 WBC (Bld) 22.8 % Normal 14.0-50.0 [facility] Comment on above: Order Comment: Order Added by Discern Expert. Performed By: #### 2 [id number] #### [facility] [address] [place] [address] Lymphocytes/Leukocytes Auto (Bld) [Pure # fraction] 1.6 E9/L Normal 1.0-4.0 [facility] Comment on above: Order Comment: Order Added by Discern Expert. Performed By: #### 2 [id number] #### [facility] [address] [place] [address] Monocytes/100 WBC (Bld) 8.2 % Normal 4.0-14.0 [facility] Comment on above: Order Comment: Order Added by Discern Expert. Performed By: #### 2 [id number] #### [facility] [address] [place] [address] Monocytes/Leukocytes Auto (Bld) [Pure # fraction] 0.6 E9/L Normal 0.2-1.0 [facility] Comment on above: Order Comment: Order Added by Discern Expert. Performed By: #### 2 [id number] #### [facility] [address] [place] [address] Neutrophils/100 WBC (Bld) 68.0 % Normal 36.0-75.0 [facility] Comment on above: Order Comment: Order Added by Discern Expert. Performed By: #### 2 [id number] #### [facility] [address] [place] [address] Neutrophils/Leukocytes Auto (Bld) [Pure # fraction] 4.7 E9/L Normal 2.0-7.5 [facility] Comment on above: Order Comment: Order Added by Discern Expert. Performed By: #### 2 [id number] #### [facility] [address] [place] [address] BMPon 04-28-2023 Creatinine [Mass/Vol] 1.5 mg/dL High 0.5-1.3 [facility] Comment on above: Performed By: #### 2 [id number] #### [facility] [address] [place] [address] Urea nitrogen [Mass/Vol] 24 mg/dL High 5-21 [facility] Comment on above: Performed By: #### 2 [id number] #### [facility] [address] [place] [address] Urea nitrogen/Creatinine [Mass ratio] 16 No Units Normal 10-20 [facility] Comment on above: Performed By: #### 2 [id number] #### [facility] [address] [place] [address] Anion gap [Moles/Vol] 13 mmol/L Normal 6-16 [facility] Comment on above: Performed By: #### 2 [id number] #### [facility] [address] [place] [address] Calcium [Mass/Vol] 9.0 mg/dL Normal 8.9-11.1 [facility] Comment on above: Performed By: #### 2 [id number] #### [facility] [address] [place] [address] Chloride [Moles/Vol] 99 mmol/L Low 101-111 [facility] Comment on above: Performed By: #### 2 [id number] #### [facility] [address] [place] [address] CO2 [Moles/Vol] 26 mmol/L Normal 21-31 [facility] Comment on above: Performed By: #### 2 [id number] #### [facility] [address] [place] [address] Glucose [Mass/Vol] 347 mg/dL High 55-199 [facility] Comment on above: Result Comment: If t his glucose result represents a fasting glucose, interpretation should refer to the following reference range: 55-99 mg/dL Performed By: #### 2 [id number] #### [facility] [address] [place] [address] Potassium [Moles/Vol] 4.0 mmol/L Normal 3.5-5.3 [facility] Comment on above: Performed By: #### 2 [id number] #### [facility] [address] [place] [address] Sodium [Moles/Vol] 134 mmol/L Low 135-145 [facility] Comment on above: Performed By: #### 2 [id number] #### [facility] [address] [place] [address] CBC w/ Auto Diffon 3 Erythrocyte distribution width (RBC) [Ratio] 14.0 % Normal 10.9-14.2 [facility] Comment on above: Performed By: #### 2 [id number] #### [facility] [address] [place] [address] Hematocrit (Bld) [Volume fraction] 23.7 % Low 37.7-49.0 [facility] Comment on above: Performed By: #### 2 [id number] #### [facility] [address] [place] [address] Hemoglobin (Bld) [Mass/Vol] 8.2 g/dL Low 13.5-17.5 [facility] Comment on above: Performed By: #### 2 [id number] #### [facility] [address] [place] [address] MCH (RBC) [Entitic mass] 28.3 pg Normal 27.0-34.0 [facility] Comment on above: Performed By: #### 2 [id number] #### [facility] [address] [place] [address] MCHC (RBC) [Mass/Vol] 34.6 g/dL Normal 31.4-36.0 [facility] Comment on above: Performed By: #### 2 [id number] #### [facility] [address] [place] [address] MCV (RBC) [Entitic vol] 81.7 fL Normal 80.0-100.0 [facility] Comment on above: Performed By: #### 2 [id number] #### [facility] [address] [place] [address] Platelet mean volume (Bld) [Entitic vol] 8.0 fL Normal 6.4-10.8 [facility] Comment on above: Performed By: #### 2 [id number] #### [facility] [address] [place] [address] Platelets (Bld) [#/Vol] 163.0 E9/L Normal 150.0-500.0 [facility] Comment on above: Performed By: #### 2 [id number] #### [facility] [address] [place] [address] RBC (Bld) [#/Vol] 2.9 E12/L Low 4.3-5.9 [facility] Comment on above: Performed By: #### 2 [id number] #### [facility] [address] [place] [address] WBC corrected for nucl RBC Auto (Bld) [#/Vol] 6.9 E9/L Normal 4.0-11.0 [facility] Comment on above: Performed By: #### 2 [id number] #### [facility] [address] [place] [address] COAGULATIONOrdered By: Odilon daiana Langley on 04-28-2023 aPTT Coag (PPP) [Time] 26.0 s Normal 25.1 - 36.5 second(s) [facility] Comment on above: Interpretive Data: Tyrnoe jackie 15 days - 4 weeks 1 - [...] the same coagulation reagent and instrumentation as [facility] [place] Currently there are no coagulation studies available worldwide for children to 14 days, and no normal ranges. Heparin therapeutic range (represented by Anti-Factor Xa activity of 0.2 - 0.4 U/mL) corresponds to PTT of 56.6 - 109.0 sec. INR Coag (PPP) [Relative time] 1.0 {INR} Invalid Interpretation Code [facility] Comment on above: Interpretive Data: I NR results are specifically intended to assess patients stabilized on long-term Anticoagulation therapy suggested INR s Less Intensive Anticoagulation 2.0 3.0 Conventional Range 3.0 4.5 PT Coag (PPP) [Time] 11.5 s Normal 9.4 - 1 2.5 second(s) [facility] Comment on above: Interpretive Data: [...] the same coagulation reagent and instrumentation as [facility] [place] Currently there are no coagulation studies available worldwide for children to 14 days, and no normal ranges. Consent for Treatmenton Consent for Treatment [id number]#1 .00TIFF Normal [facility] HEMATOLOGYOrdered By: SYSTEM SYSTEM on 04-28-2023 Basophils/100 WBC (Bld) 0.4 % Normal 0.0 - 2.0 % [facility] Basophils/Leukocytes Auto (Bld) [Pure # fraction] 0.0 E9/L Normal 0.0 - 0.2 E9/L [facility] Eosinophils/100 WBC (Bld) 0.6 % Normal 0.0 - 8.0 % [facility] Eosinophils/Leukocytes Auto (Bld) [Pure # fraction] 0.0 E9/L Normal 0.0 - 0.5 E9/L [facility] Lymphocytes/100 WBC (Bld) 22.8 % Normal 14.0 - 50.0 % [facility] Lymphocytes/Leukocytes Auto (Bld) [Pure # fraction] 1.6 E9/L Normal 1.0 - 4.0 E9/L [facility] Monocytes/100 WBC (Bld) 8.2 % Normal 4.0 - 14.0 % [facility] Monocytes/Leukocytes Auto (Bld) [Pure # fraction] 0.6 E9/L Normal 0.2 - 1.0 E9/L [facility] Neutrophils/100 WBC (Bld) 68.0 % Normal 36.0 - 75.0 % [facility] Neutrophils/Leukocytes Auto (Bld) [Pure # fraction] 4.7 E9/L Normal 2.0 - 7.5 E9/L [facility] HEMATOLOGYOrdered By: Jack Livingston on 04-28-2023 Erythrocyte distribution width (RBC) [Ratio] 14.0 % Normal 10.9 - 14.2 % [facility] MCH (RBC) [Entitic mass] 28.3 pg Normal 27.0 - 34.0 pg [facility] MCHC (RBC) [Mass/Vol] 34.6 g/dL Normal 31.4 - 36.0 gm/dL [facility] MCV (RBC) [Entitic vol] 81.7 fL Normal 80.0 - 100.0 fL [facility] Platelet mean volume (Bld) [Entitic vol] 8.0 fL Normal 6.4 - 10.8 fL [facility] Platelets (Bld) [#/Vol] 163.0 E9/L Normal 150.0 - 500.0 E9/L [facility] RBC (Bld) [#/Vol] 2.9 E12/L Low 4.3 - 5.9 E12/L [facility] WBC corrected for nucl RBC Auto (Bld) [#/Vol] 6.9 E9/L Normal 4.0 - 11.0 E9/L [facility] PT & PTTon 04-28-2023 aPTT Coag (PPP) [Time] 26.0 second(s) Normal 25.1-36.5 [facility] Comment on above: Result Comment: Para [...] the same coagulation reagent and instrumentation as [facility] Currently there are no coagulation studies available worldwide for children to 14 days, and no normal ranges. Heparin therapeutic range (represented by Anti-Factor Xa activity of 0.2 - 0.4 U/mL) corresponds to PTT of 56.6 - 109.0 sec. Performed By: #### 2 [id number] #### [facility] [address] [place] [address] INR Coag (PPP) [Relative time] 1.0 {INR} Invalid Interpretation Code [facility] Comment on above: Result Comment: INR results are specifically intended to assess patients stabilized on long-term Anticoagulation therapy suggested INR?s ?Less Intensive Anticoagulation? 2.0 ? 3.0 Conventional Range 3.0 ? 4.5 Performed By: #### 2 [id number] #### [facility] [address] [place] [address] PT Coag (PPP) [Time] 11.5 second(s) Normal 9.4-12.5 [facility] Comment on above: Result Comment: 15 [...] the same coagulation reagent and instrumentation as [facility] Currently there are no coagulation studies available worldwide for children to 14 days, and no normal ranges. Performed By: #### 2 [id number] #### [facility] [address] [place] [address] Pre-Arrival Noteon 3 Pre-Arrival Note Pre-Arrival Summary Name: , FARNAZ Current Date: 04/28/2023 20:38:23 EST Gender: Male Date of : Age: 57 Pre-Arrival Type: EMS ETA: 04/28/2023 20:56:00 EST Primary Care Physician: Presenting Problem: Chest pain, Shoulder and back pain Pre-Arrival User: Fabian Toussaint RN Referring Source: Location: [place] Completion Date/Time: 04/28/2023 20:27:00 [facility] Emergency Department Pre-Hospital Report Form Vital Signs: BP- 121/64, CR 103, RR-16, [id number] Room air Pre-Hospital Report: Treatment in Route: Nitro 1 tab SL, 1L IV Response to Treatment: Misc. Issues: Normal [facility] Troponin 0 Hr.on 04-28-2023 Troponin I.cardiac [Mass/Vol] 18.20 pg/mL Normal 15.90-38.40 [facility] Comment on above: Result Comment: The 95% CI (Confidence Interval) PPV (Positive Predictive Value) for myocardial infarction in females is 38 pg/mL, in males 51 pg/mL. The results should be used in conjunction with clinical conditions of myocardial infarction. (Access High Sensitivity Troponin I Instructions For Use, [employer], December 2017) Performed By: #### 7 [id number] #### [facility] [address] [place] [address] eGFRon 04-28-2023 GFR/1.73 sq M.predicted among non-blacks MDRD (S/P/Bld) [Vol rate/Area] 53 mL/min/1.73 m2 Low >=59 [facility] Comment on above: Order Comment: Order added by Discern Expert. Result Comment: Criminal Analyst juliana kidney disease could be indicated at eGFR's of less than 60 mL/min/1.73m2. Kidney failure is indicated at less than 15 mL/min/1.73m2. Performed By: #### 2 [id number] #### [facility] [address] [place] [address] Lab Reportson 04-27-2023 Lab Reports [id number]#1 .00TIFF Normal [facility] Operative Reporton Operative Report [id number]#1 .00TIFF Normal [facility] ECG 12-Leadon 04-14-2023 ECG 12-Lead [id number]#1. 00TIFF Normal [facility] Lab Reportson 04-14-2023 Lab Reports [id number]#1 .00TIFF Normal [facility] RAD - MISCon 04-14-2023 RAD - MISC [id number]#1 .00TIFF Normal [facility] Insurance Correspondenceon 1 06-07-2022 Insurance Correspondence [id number]# 1.00TIFF Normal [facility] Consent for Procedure/Surger yon 03-28-2023 Consent for Procedure/Surgery [id number]# 1.00TIFF Normal [facility] Physician Referralon 023 Physician Referral [id number]#1. 00TIFF Normal [facility] Ambulatory Visit Summaryon 1 Ambulatory Visit Summary JANICE SMYTH :1965 Visit Date:03/27/2023 Ambulatory Visit Instructions Your Diagnosis Kidney stones BPH (benign prostatic hyperplasia) Aspirin long-term use Tests Performed Urnls Dip Stick Auto w/o Microscopy POC 25996 Your Care Team Attending Physician - Sean [...] Follow Up with PRISCA ACOSTA, Sean Stovall, URL When: Comments: sched laser litho Where: [facility] [address], [place] [phone] Medications What How Much When Why Instructions [...] Urnls Dip Stick Auto w/o Microscopy POC 12174 (03/27/2023) Bilirubin Urine Dipstick - Negative Blood Urine Dipstick - Negative Glucose Urine Dipstick - Negative Ketones Urine Dipstick - Negative Leukocytes Urine Dipstick - Negative Nitrite Urine Dipstick - Negative Protein Urine Dipstick - 1+ (30 mg/dl) Specific [place] Urine Dipstick - 1.015 Urine Appearance Urine [...] receiving treatm (more content not included)... Normal [facility] Patient Educationon 03-27-20 23 Patient Education [...] these instructions at home: Medicines ? Take qyge-qhz-ofvmlgf and prescription medicines only as told by [...] provider. Document Revised: 01/17/2022 Document Reviewed: 01/17/2022 [employer] Patient Education ? [address] [employer] [facility] Urology Office/Clinic Noteon 03-27-2023 Urology Office/Clinic Note HPI Staff 57 yo male new pt re-referred by Dr. Antonio Kitchen for personal hx of urinary calculi. Last seen in office 08/27/[address] Culver. Previous Dx: BPH with LUTS, suprapubic pain, personal hx of smoking, snf use of blood thinners. S/p Cysto 06/08/17 and 07/26/18 by JERAMIE. S/p Green Light Laser of prostate 07/12/17 by DLS. No recent abdomen/pelvis imaging on [facility] or [facility]. 06/06/17 - first referred to [facility] by Dr. Kitchen, was taking Tamsulosin 0.4mg 06/08/17 - Started Terazosin 5mg qd after cysto (no record of Tamsulosin after that). 09/04/17 - Started Oxybutynin 5mg qd 08/27/18 - Started Vesicare 5mg qd PSA 03/18/17 - 3.15 12/06/19 - 0.927 03/26/22 - 0.58 Has PSA order at [facility] from 01/03/[address] Kitchen. Per [...] lower urin (more content not included)... Normal [facility] Comment on above: Result Comment: Elec tronically Signed By: Sean COPE MD\.br\Date and Time Signed: 03/27/23 09:51 EDT\.br\Electronically Co-Signed By: Carol Padilla\.br\Date and Time Co-Signed: 03/27/23 09:47 EDT Auto Diffon 03-08-2023 Basophils/100 WBC (Bld) 0.5 % Normal 0.0-2.0 [facility] Comment on above: Order Comment: Order Added by Discern Expert. Performed By: #### 1 [id number] #### [facility] [address] [place] [address] Basophils/Leukocytes Auto (Bld) [Pure # fraction] 0.0 E9/L Normal 0.0-0.2 [facility] Comment on above: Order Comment: Order Added by Discern Expert. Performed By: #### 1 [id number] #### [facility] [address] [place] [address] Eosinophils/100 WBC (Bld) 0.8 % Normal 0.0-8.0 [facility] Comment on above: Order Comment: Order Added by Discern Expert. Performed By: #### 1 [id number] #### [facility] [address] [place] [address] Eosinophils/Leukocytes Auto (Bld) [Pure # fraction] 0.0 E9/L Normal 0.0-0.5 [facility] Comment on above: Order Comment: Order Added by Discern Expert. Performed By: #### 1 [id number] #### [facility] [address] [place] [address] Lymphocytes/100 WBC (Bld) 32.6 % Normal 14.0-50.0 [facility] Comment on above: Order Comment: Order Added by Discern Expert. Performed By: #### 1 [id number] #### [facility] [address] [place] [address] Lymphocytes/Leukocytes Auto (Bld) [Pure # fraction] 1.8 E9/L Normal 1.0-4.0 [facility] Comment on above: Order Comment: Order Added by Discern Expert. Performed By: #### 1 [id number] #### [facility] [address] [place] [address] Monocytes/100 WBC (Bld) 7.2 % Normal 4.0-14.0 [facility] Comment on above: Order Comment: Order Added by Discern Expert. Performed By: #### 1 [id number] #### [facility] [address] [place] [address] Monocytes/Leukocytes Auto (Bld) [Pure # fraction] 0.4 E9/L Normal 0.2-1.0 [facility] Comment on above: Order Comment: Order Added by Discern Expert. Performed By: #### 1 [id number] #### [facility] [address] [place] [address] Neutrophils/100 WBC (Bld) 58.9 % Normal 36.0-75.0 [facility] Comment on above: Order Comment: Order Added by Discern Expert. Performed By: #### 1 [id number] #### [facility] [address] [place] [address] Neutrophils/Leukocytes Auto (Bld) [Pure # fraction] 3.2 E9/L Normal 2.0-7.5 [facility] Comment on above: Order Comment: Order Added by Discern Expert. Performed By: #### 1 [id number] #### [facility] [address] [place] [address] CBC w/ Auto Diffon 3 Erythrocyte distribution width (RBC) [Ratio] 13.3 % Normal 10.9-14.2 [facility] Comment on above: Performed By: #### 1 [id number] #### [facility] [address] [place] [address] Hematocrit (Bld) [Volume fraction] 38.0 % Normal 37.7-49.0 [facility] Comment on above: Performed By: #### 1 [id number] #### [facility] [address] [place] [address] Hemoglobin (Bld) [Mass/Vol] 12.9 g/dL Low 13.5-17.5 [facility] Comment on above: Performed By: #### 1 [id number] #### [facility] [address] [place] [address] MCH (RBC) [Entitic mass] 28.0 pg Normal 27.0-34.0 [facility] Comment on above: Performed By: #### 1 [id number] #### [facility] [address] [place] [address] MCHC (RBC) [Mass/Vol] 34.0 g/dL Normal 31.4-36.0 [facility] Comment on above: Performed By: #### 1 [id number] #### [facility] [address] [place] [address] MCV (RBC) [Entitic vol] 82.6 fL Normal 80.0-100.0 [facility] Comment on above: Performed By: #### 1 [id number] #### [facility] [address] [place] [address] Platelet mean volume (Bld) [Entitic vol] 7.7 fL Normal 6.4-10.8 [facility] Comment on above: Performed By: #### 1 [id number] #### [facility] [address] [place] [address] Platelets (Bld) [#/Vol] 280.0 E9/L Normal 150.0-500.0 [facility] Comment on above: Performed By: #### 1 [id number] #### [facility] [address] [place] [address] RBC (Bld) [#/Vol] 4.6 E12/L Normal 4.3-5.9 [facility] Comment on above: Performed By: #### 1 [id number] #### [facility] [address] [place] [address] WBC corrected for nucl RBC Auto (Bld) [#/Vol] 5.4 E9/L Normal 4.0-11.0 [facility] Comment on above: Performed By: #### 1 [id number] #### [facility] [address] [place] [address] CHEMISTRYOrdered By: SYSTEM SYSTEM on 03-08-2023 CRP [Mass/Vol] 0.5 mg/dL Normal <=1.9mg/dL [facility] Rem[facility] CRPon 03-08-2023 CRP [Mass/Vol] 0.5 mg/dL Normal <=1.9 [facility] Comment on above: Performed By: #### 1 [id number] #### [facility] [address] [place] [address] Consent for Treatmenton 02-26 Consent for Treatment [id number]#1 .00TIFF Normal [facility] HEMATOLOGYOrdered By: SYSTEM SYSTEM on 03-08-2023 Basophils/100 WBC (Bld) 0.5 % Normal 0.0 - 2.0 % [facility] Basophils/Leukocytes Auto (Bld) [Pure # fraction] 0.0 E9/L Normal 0.0 - 0.2 E9/L [facility] Eosinophils/100 WBC (Bld) 0.8 % Normal 0.0 - 8.0 % [facility] Eosinophils/Leukocytes Auto (Bld) [Pure # fraction] 0.0 E9/L Normal 0.0 - 0.5 E9/L [facility] Lymphocytes/100 WBC (Bld) 32.6 % Normal 14.0 - 50.0 % [facility] Lymphocytes/Leukocytes Auto (Bld) [Pure # fraction] 1.8 E9/L Normal 1.0 - 4.0 E9/L [facility] Monocytes/100 WBC (Bld) 7.2 % Normal 4.0 - 14.0 % [facility] Monocytes/Leukocytes Auto (Bld) [Pure # fraction] 0.4 E9/L Normal 0.2 - 1.0 E9/L [facility] Neutrophils/100 WBC (Bld) 58.9 % Normal 36.0 - 75.0 % [facility] Neutrophils/Leukocytes Auto (Bld) [Pure # fraction] 3.2 E9/L Normal 2.0 - 7.5 E9/L [facility] HEMATOLOGYOrdered By: Ortiz Braden on 03-08-2023 Erythrocyte distribution width (RBC) [Ratio] 13.3 % Normal 10.9 - 14.2 % [facility] Hematocrit (Bld) [Volume fraction] 38.0 % Normal 37.7 - 49.0 % [facility] Hemoglobin (Bld) [Mass/Vol] 12.9 g/dL Low 13.5 - 17.5 gm/dL [facility] MCH (RBC) [Entitic mass] 28.0 pg Normal 27.0 - 34.0 pg [facility] MCHC (RBC) [Mass/Vol] 34.0 g/dL Normal 31.4 - 36.0 gm/dL [facility] MCV (RBC) [Entitic vol] 82.6 fL Normal 80.0 - 100.0 fL [facility] Platelet mean volume (Bld) [Entitic vol] 7.7 fL Normal 6.4 - 10.8 fL [facility] Platelets (Bld) [#/Vol] 280.0 E9/L Normal 150.0 - 500.0 E9/L [facility] RBC (Bld) [#/Vol] 4.6 E12/L Normal 4.3 - 5.9 E12/L [facility] WBC corrected for nucl RBC Auto (Bld) [#/Vol] 5.4 E9/L Normal 4.0 - 11.0 E9/L [facility] [facility] [place] [facility] HEMATOLOGYOrdered By: Shikha Conteh on 03-08-2023 Sed Rate Automated 12 mm/h Normal 0 - 19 mm/hr [facility] [place] [facility] Physician Orderon 03-08-2023 Physician Order [id number]#1 .00TIFF Normal [facility] Sed Rate Automatedon 023 Sed Rate Automated 12 mm/hr Normal 0-19 [facility] Comment on above: Performed By: #### 1 [id number] #### [facility] [address] [place] [address] IntraOperative Documentson 0 02-22-2023 IntraOperative Documents [id number]#1 .00CD:[address] [facility] Main OR Intraoperative Recor don 02-09-2023 Main OR Intraoperative Record IntraOp Document Type FT Summary Primary Physician: Yann Atwood DO Finalized Date/Time: 02/09/23 13:23:06 Pt. Name: JANICE SMYTH/Sex: 1965 Male Med Rec #: [id number] Physician: Yann Atwood DO Financial #: [id number] Pt. Type: A Room/Bed: [facility] Admit/Disch: 02/07/23 06:04:01 - 02/07/23 15:10:00 Institution: Case Times FT Entry 1 Patient Times In Room 02/07/23 08:51:00 Out Room 02/07/23 10:40:00 Procedure Times Start 02/07/23 09:23:00 Stop 02/07/23 10:33:00 Anesthesia Times Start 02/07/23 08:51:00 Stop 02/07/23 10:40:00 Block Timeout w02/07/23 07:39:00 Anesthesia Last Modified By: Trey Ellison 02/07/23 10:40:23 General Comments: Patient taken from [facility] to the block room at 0739 by ANNELIESE Perez, connected to monitors with HR at 63bpm, SpO2 at 97% on room air, then right adductor canal nerve block done by Dr. Desouza at [phone] with Chris, RN assisting, no issues, taken back to [facility] at 0746, hooked to monitors, verbal reports given to [facility] RN. ANNELIESE Perez 02/09/23 Chart opened to review and send charges [facility] CSFA Case Attendance FT Entry 1 Entry 2 Entry 3 Case Attendee Carlton RUIZ, WIND FARM OPERATIONS MANAGER, Yann Aden DO, CST, Elroy Morales Role Performed WIND FARM OPERATIONS MANAGER Surgeon - Primary REGULATORY AFFAIRS CONSULTANT/SA Time In 02/07/23 08:51:00 02/07/23 08:51:00 02/07/23 [...] Laura C Troike, Kendall R Role Performed Dry House Attendant - Primary Scrub - Primary Scrub - [...] Out Carlton RUIZ, LORELEI, Per Blas CST, Mahsa Abbasi DO, David A, Trey Ellison, Alem Patel, Adithya Frederick, Violetta Villegas Time [...] ARTHROPLASTY Primary Procedure Yes Primary Surgeon Yann Atwood DO Start 02/07/23 09:23:00 Stop 02/07/23 10:33:00 [...] Specialty O (more content not included)... Normal [facility] Consent for Anesthesiaon Consent for Anesthesia [id number]# 1.00CD:127 Normal [facility] Discharge Instructionson Discharge Instructions [id number]# 1.00CD:127 Normal [facility] IntraOperative Documentson 0 02-08-2023 IntraOperative Documents [id number]# 1.00CD:127 Normal [facility] Preoperative Documentson Preoperative Documents [id number]# 1.00CD:127 Normal [facility] ABO/Rhon 02-07-2023 ABO/Rh Positive Invalid Interpretation Code [facility] Comment on above: Performed By: #### 1 [id number], [id number], [id number], [id number] #### [facility] [address] [place] [address] ABO/Rh History Checkon 02-07 ABO/Rh History Check Verified Hx Blood Type Normal [facility] Comment on above: Performed By: #### 1 [id number], [id number], [id number], [id number] #### [facility] [address] [place] [address] ABSCon 02-07-2023 ABSC Gel Interp Negative Normal [facility] Comment on above: Performed By: #### 1 [id number], [id number], [id number], [id number] #### [facility] [address] [place] [address] BLOOD BANKOrdered By: John Amin on 02-07-2023 ABO/Rh Interp Positive Invalid Interpretation Code [facility] [facility] [place] Subsection ABSC Gel Interp Negative (02/07/23 6:40 AM) Normal [facility] [facility] [place] Subsection Blood Bank ID#on 02-07-2023 BBID# [id number] Invalid Interpretation Code [facility] Comment on above: Performed By: #### 1 [id number], [id number], [id number], [id number] #### [facility] [address] [place] [address] CHEMISTRYOrdered By: Bren FOSTER User on 02-07-2023 Glucose [Mass/Vol] 307 mg/dL High 55 - 99 mg/dL [facility] [facility] [place] Subsection Comment on above: Result Comment: Lucina edison Meter POC Device SN [id number] Invalid Interpretation Code [facility] [place] POC Subsection POC User ID [id number] Invalid Interpretation Code [facility] [facility] [place] P[place] Subsection POC Username CELESTE BARRETT Invalid Interpretation Code [facility] [place] Subsection Glucose [Mass/Vol] 195 mg/dL High 55 - 99 mg/dL [facility] [place] P[place] Subsection POC Device SN [id number] Invalid Interpretation Code [facility] [place] P[place] Subsection POC User ID [id number] Invalid Interpretation Code [facility] [place] POC Subsection POC Username CELESTE BARRETT Invalid Interpretation Code [facility] [facility] [place] P[place] Subsection Capillary Glucose POCon 01-27 Glucose [Mass/Vol] 307 mg/dL High 55-99 [facility] Comment on above: Result Comment: Lucina edison Meter Performed By: #### 2 [id number] #### [facility] [address] [place] [address] Glucose [Mass/Vol] 195 mg/dL High 55-99 [facility] Comment on above: Performed By: #### 2 [id number] ####[facility] [address] [place] [address] Consent for Treatmenton 01-27 Consent for Treatment [id number]#1 .00CD:127 [facility] Discharge Instructionson Discharge Instructions JANICE SMYTH :1965 Visit Date:02/07/2023 Inpatient Discharge Instructions Your Care Team Admitting Physician - Yann Atwood DO Referring Physician - Yann Atwood DO Reason for Your Visit RIGHT KNEE [...] [place] Where: [facility] Comment on above: Result Comment: Elec tronically Signed By: Obi COY, Sienna Jensen\Date and Time Signed: 02/07/23 12:39 EDT Discharge Instructions JANICE SMYTH :1965 Visit Date:02/07/2023 Inpatient Discharge Instructions Your Care Team Admitting Physician - Yann Atwood DO Referring Physician - Yann Atwood DO Reason for Your Visit RIGHT KNEE [...] Appointments after Discharge Follow Up with Yann Atwood When: 03/08/2023 10:30 AM EDT Comments: Appointment has already been scheduled Call for any problems. Where: [address] [place], [place] [id number] [employer] (1) Medications What How Much When Why [...] possible. ? If the spirometer includes a coach builder indicator, use this to guide you in breathing. Slow down your breathing if the indicator goes (more content not included)... Normal [facility] Comment on above: Result Comment: Elec tronically Signed By: Ralph COY, Christa Caceres\.br\Date and Time Signed: 02/07/23 11:50 EDT H&P Updateon 02-07-2023 H&P Update [id number]#1 .00CD:127 Normal [facility] Main OR PACU I Recordon 01-27 Main OR PACU I Record PACU Phase I Docum ent Type FT Summary Primary Physician: Yann Atwood DO Finalized Date/Time: 02/07/23 12:12:17 Pt. Name: JANICE SMYTH/Sex: 1965 Male Med Rec #: [id number] Physician: Yann Atwood DO Financial #: [id number] Pt. Type: A Room/Bed: [place] [address] Admit/Disch: 02/07/23 06:04:01 - Institution: Case Times [...] Signed By: Lakisha Wren RN 02/07/23 12:12 [facility] Main OR Preoperative Recordo n 02-07-2023 Main OR Preoperative Record PreOp Document Type FT Summary Primary Physician: Yann Atwood DO Finalized Date/Time: 02/07/23 09:27:11 Pt. Name: JANICE SMYTH/Sex: 1965 Male Med Rec #: [id number] Physician: Yann Atwood DO Financial #: [id number] Pt. Type: A Room/Bed: [facility] Admit/Disch: 02/07/23 06:04:01 - Institution: Case Times [...] Signed By: Trey Ellison 02/07/23 09:27 Normal [facility] Monitor Recordon 02-07-2023 Monitor Record [id number]# 1.00CD:127 Normal [facility] Monitor Record [id number]# 1.00CD:127 Normal [facility] Operative Reporton Operative Report SURGERY DATE: 02/07/2023 SENIOR LABEL SPECIALIST: Elroy Albarado CFA PREOPERATIVE DIAGNOSIS: Right knee [...] lateral. Total knee arthroplasty is done with taoist of limb stability, alignment and length with [...] time-out procedure. This is done on the Moonbasa platform as well. The limb is exsanguinated [...] and tibial checkpoints (more content not included)... [facility] Comment on above: Result Comment: Elec tronically Signed By: Yann Atwood DO\.br\Date and Time Signed: 02/07/23 12:11 EDT Operative Report Patient: JANICE SMYTH Age: 57 years Sex: [...] Using maximal sterile barrier technique per current [facility] guidelines including hand hygeine, Guidance (Ultrasound used to identify anatomical landmarks, Using sterile gel and probe covers, Permanent image retained), The site was prepped with ChloraPrep. Procedure: Anesthetic Agent 0.5% Ropivacaine with 4mg Decadron, Catheter size 21 guage, Catheter length 100 mm, Number of attempts 1. Complications: None, The patient tolerated the procedure as expected. [facility] Comment on above: Result Comment: Elec tronically Signed By: Deion Desouza DO.br\Date and Time Signed: 02/07/23 07:34 EDT Patient Education - Texton 0 02-07-2023 Patient Education - Text Pulmonary Medicine How to Use an Incentive [...] possible. ? If the spirometer includes a coach builder indicator, use this to guide you in [...] provider. Document Revised: 08/03/2020 Document Reviewed: 08/03/2020 [employer] Patient Education ? 2022 [employer] [place], [place] [facility] DISCHARGE INSTRUCTIONS TOTAL KNEE ARTHROPLASTY INCISION CARE: Continue the daily dressing care to the knee as instructed in the hospital for 7 days postoperatively. The dressing will then be changed and worn an additional 7 days. You may then discontinue the dressing changes. Remove the dressing on the lower leg po (more content not included)... Normal [facility] Progress Note-Physicianon Progress Note-Physician Patient: JANICE [...] Daily, # 90 tab(s), Refills(s) 3, Pharmacy: [facility], 186, cm, 11/24/21 14:21:00 EDT, Height/Length Dosing, 98, kg, 11/24/21 14:21:00 EDT, Weight Dosing atorvastatin 80 mg Tab: 80 mg = 1 tab(s), Oral, Daily, # 90 tab(s), Refills(s) 3, Pharmacy: [facility], 186, cm, 10/20/20 11:38:00 EDT, Height/Length Dosing, 96, kg, 10/20/20 11:38:00 EDT, Weight Dosing nitroglycerin 0.4 mg sublingual Tab: 0.4 mg = 1 tab(s), SubLingual, q5min, PRN Chest pain, not to exceed 3 doses/15 min--if pain persists, seek medical attention, # 30 tab(s), Refills(s) 0, Pharmacy: [facility]/pharmacy #[id number], 185.4, cm, 02/21/20 20:48:00 EDT, Height/Length [...] list: All Problems Arthritis / SNOMED CT 3962860 / Conf (more content not included)... Normal [facility] Comment on above: Result Comment: Elec tronically Signed By: Deion Desouza DO\.br\Date and Time Signed: 02/07/23 12:17 EDT Progress Note-Physician Patient: JANICE SMYTH Age: 57 years Sex: Male : 1965 Associated Diagnoses: None Author: Yann Atwood DO Postoperative Information Procedure: R RA TKA Preoperative Diagnosis: R knee OA. Postoperative Diagnosis: same. Performed by: mahsa. Rn Plasma Center: Jayme Albarado. Specimens Removed: bone, soft tissue. Prosthesis: [place]. . Estimated Blood Loss: 0 ml. Complications: None. Anesthesia type: General, Spinal, add canal block. Normal [facility] Comment on above: Result Comment: Elec tronically Signed By: Yann Atwood DObr\Date and Time Signed: 02/07/23 10:33 EDT Progress [...] Daily, # 90 tab(s), Refills(s) 3, Pharmacy: [facility], 186, cm, 11/24/21 14:21:00 EDT, Height/Length Dosing, 98, kg, 11/24/21 14:21:00 EDT, Weight Dosing atorvastatin 80 mg Tab: 80 mg = 1 tab(s), Oral, Daily, # 90 tab(s), Refills(s) 3, Pharmacy: [facility], 186, cm, 10/20/20 11:38:00 EDT, Height/Length Dosing, 96, kg, 10/20/20 11:38:00 EDT, Weight Dosing nitroglycerin 0.4 mg sublingual Tab: 0.4 mg = 1 tab(s), SubLingual, q5min, PRN Chest pain, not to exceed 3 doses/15 min--if pain persists, seek medical attention, # 30 tab(s), Refills(s) 0, Pharmacy: [facility]/pharmacy #[id number], 185.4, cm, 02/21/20 20:48:00 EDT, Height/Length [...] list: All Problems Arthritis / SNOMED CT 5918108 / Confirmed Coronary artery disease / SNOMED CT 31042105 / Confirmed Degenerative joint disease / SNOMED CT 8596673497 / Confirmed Depression / SNOMED CT 95743485 / Confirmed Glaucoma / SNOMED CT 66598860 / Confirmed High blood pressure / SNOMED CT 5458427117 / Confirmed Intermittent chest pain / SNOMED CT 38891274 / Confirmed Type 2 diabetes mellitus / SNOMED CT 096511444 / Confirmed Resolved: Diabetes type / SNOMED CT 9849671709 Resolved: STEMI - ST elevation myocardial infarction / SNOMED CT 9878445472, Active Problems (8) Arthritis Coronary artery disease Degenerative joint disease Depression Glaucoma High blood pressure Intermittent chest pain Type 2 diabetes mellitus Histories Past Medical History: Resolved STEMI - ST elevation myocardial infarction (8501884347): Onset on 12/26/2019 at 54 years. Resolved. Diabetes type (7153168107): Resolved. Family History: Diabetes mellitus type 1 Father Procedure history: Cardiac catheterisation (088451451) on 02/24/2020 at 54 Years. PCI - Percutaneous coronary intervention (4546840081) on 12/26/2019 at 54 Years. 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 Comments: 12/26/2019 9:24 MONY Medel RN, Lesvia rotater cuff Fracture of (more content not included)... Normal [facility] Comment on above: Result Comment: Elec [...] tissues from the surgery. Ordering Provider: Yann Atwood FINAL REPORT Dictated: 02/07/2023 11:08 am Edward Haskins M.D. Signed (Electronic Signature): 02/07/2023 11:08 am Signed by: Edward Haskins M.D. Transcribed by: NATALIE Technologist: GIOVANNI Technical Comments Radiation Dose: Ka,r in mGy = na DAP = na Normal [facility] Heart and Vascular Office/Cl inic Noteon [...] intact- no rash or concerning lesions Procedure [facility] - Dr Brink 02/24/20 CONCLUSIONS: 1. Widely [...] artery disease (I25.10: Atherosclerotic heart disease of andreafski coronary artery without angina pectoris) CAD with prior PCI. He continues aspirin 81 mg daily, high intensity atorvastatin 80 mg daily, losartan 100 mg daily. He did not tolerate beta-castro due to fatigue and baseline bradycardia. Follow-up With When Contact Information Jose De Jesus ACOSTA, Matthew Gar [address] [place] [address]- Additional Instructions: 1 year Problem List/Past Medical [...] Oral, Da (more content not included)... Normal [facility] Comment on above: Result Comment: Elec tronically Signed By: Estephania VILLANUEVA CNP\.ravin\Date and Time Signed: 02/05/23 15:28 EDT Consent for Procedure/Surger yon 02-03-2023 Consent for Procedure/Surgery [id number]# 1.00CD:127 [address] [facility] CT Lower Extremity w/o Contr ast [...] low as reasonably achievable. Ordering Provider: Yann Atwood FINAL REPORT Dictated: 01/18/2023 10:35 am Edward Haskins M.D. Signed (Electronic Signature): 01/18/2023 10:35 am Signed by: Edward Haskins M.D. Transcribed by: NATALIE Technologist: PRINCESS Normal [facility] Insurance Correspondenceon 0 01-17-2023 Insurance Correspondence [id number]#1 .00CD:127 Normal [facility] ABO/Rh Retypeon 01-16-2023 ABO/Rh Retype Interp Positive Invalid Interpretation Code [facility] Comment on above: Performed By: #### 1 [id number] ####[facility] [address] [place] [address] BLOOD BANKOrdered By: Heidi Srinivasan on 01-16-2023 ABO/Rh Retype Interp Positive Invalid Interpretation Code [facility] [place] Subsection BUNon 01-16-2023 Urea nitrogen [Mass/Vol] 13 mg/dL Normal 10-16 [facility] Comment on above: Performed By: #### 7 [id number] #### [facility] [address] [place] [address] CBC w/Indiceson 01-16-2023 Erythrocyte distribution width (RBC) [Ratio] 12.9 % Normal 10.9-14.2 [facility] Comment on above: Performed By: #### 7 [id number] #### [facility] [address] [place] [address] Hematocrit (Bld) [Volume fraction] 40.7 % Normal 37.7-49.0 [facility] Comment on above: Performed By: #### 7 [id number] #### [facility] [address] [place] [address] Hemoglobin (Bld) [Mass/Vol] 14.2 g/dL Normal 13.5-17.5 [facility] Comment on above: Performed By: #### 7 [id number] #### [facility] [address] [place] [address] MCH (RBC) [Entitic mass] 29.5 pg Normal 27.0-34.0 [facility] Comment on above: Performed By: #### 7 [id number] #### [facility] [address] [place] [address] MCHC (RBC) [Mass/Vol] 34.9 g/dL Normal 31.4-36.0 [facility] Comment on above: Performed By: #### 7 [id number] #### [facility] [address] [place] [address] MCV (RBC) [Entitic vol] 84.5 fL Normal 80.0-100.0 [facility] Comment on above: Performed By: #### 7 [id number] #### [facility] [address] [place] [address] Platelet mean volume (Bld) [Entitic vol] 8.0 fL Normal 6.4-10.8 [facility] Comment on above: Performed By: #### 7 [id number] #### [facility] [address] [place] [address] Platelets (Bld) [#/Vol] 226.0 E9/L Normal 150.0-500.0 [facility] Comment on above: Performed By: #### 7 [id number] #### [facility] [address] [place] [address] RBC (Bld) [#/Vol] 4.8 E12/L Normal 4.3-5.9 [facility] Comment on above: Performed By: #### 7 [id number] #### [facility] [address] [place] [address] WBC corrected for nucl RBC Auto (Bld) [#/Vol] 4.7 E9/L Normal 4.0-11.0 [facility] Comment on above: Performed By: #### 7 [id number] #### [facility] [address] [place] [address] CHEMISTRYOrdered By: SYSTEM SYSTEM on 01-16-2023 Anion gap [Moles/Vol] 9 mmol/L Normal 6 - 16 mEq/L [facility] [place] Remisol Chloride [Moles/Vol] 104 mmol/L Normal 101 - 1 11 mmol/L [facility] [place] [facility] [place] Remisol CO2 [Moles/Vol] 28 mmol/L Normal 21 - 31 mmol/L [facility] [place] Remisol Creatinine [Mass/Vol] 0.9 mg/dL Normal 0.5 - 1.3 mg/dL [facility] [place] Remisol GFR/1.73 sq M.predicted among non-blacks MDRD (S/P/Bld) [Vol rate/Area] 98 mL/min/1.73 m2 Normal >=59mL/min/1 .73 m2 [facility] [place] Chem S Glucose [Mass/Vol] 174 mg/dL Normal 55 - 199 mg/dL [facility] [place] Remisol Potassium [Moles/Vol] 4.4 mmol/L Normal 3.5 - 5.3 mmol/L [facility] [place] Remisol Sodium [Moles/Vol] 137 mmol/L Normal 135 - 145 mmol/L [facility] [place] Remisol Urea nitrogen [Mass/Vol] 13 mg/dL Normal 5 - 21 mg/dL [facility] [place] Remisol Consent for Treatmenton 12-28 Consent for Treatment [id number]#1 .00CD:127 Normal [facility] Creatinineon 01-16-2023 Creatinine [Mass/Vol] 0.9 mg/dL Normal 0.5-1.3 [facility] Comment on above: Performed By: #### 7 [id number] #### [facility] [address] [place] [address] Glucoseon 01-16-2023 Glucose [Mass/Vol] 174 mg/dL Normal 55-199 [facility] Comment on above: Performed By: #### 7 [id number] #### [facility] [address] [place] [address] HEMATOLOGYOrdered By: Ulysses Butler on 01-16-2023 Erythrocyte distribution width (RBC) [Ratio] 12.9 % Normal 10.9 - 14.2 % [facility] Hematocrit (Bld) [Volume fraction] 40.7 % Normal 37.7 - 49.0 % [facility] Hemoglobin (Bld) [Mass/Vol] 14.2 g/dL Normal 13.5 - 17.5 gm/dL [facility] MCH (RBC) [Entitic mass] 29.5 pg Normal 27.0 - 34.0 pg [facility] MCHC (RBC) [Mass/Vol] 34.9 g/dL Normal 31.4 - 36.0 gm/dL [facility] MCV (RBC) [Entitic vol] 84.5 fL Normal 80.0 - 100.0 fL [facility] Platelet mean volume (Bld) [Entitic vol] 8.0 fL Normal 6.4 - 10.8 fL [facility] Platelets (Bld) [#/Vol] 226.0 E9/L Normal 150.0 - 500.0 E9/L [facility] RBC (Bld) [#/Vol] 4.8 E12/L Normal 4.3 - 5.9 E12/L [facility] WBC corrected for nucl RBC Auto (Bld) [#/Vol] 4.7 E9/L Normal 4.0 - 11.0 E9/L [facility] Lyteson 01-16-2023 Anion gap [Moles/Vol] 9 mmol/L Normal 6-16 [facility] Comment on above: Performed By: #### 7 [id number] #### [facility] [address] [place] [address] Chloride [Moles/Vol] 104 mmol/L Normal 101-111 [facility] Comment on above: Performed By: #### 7 [id number] #### [facility] [address] [place] [address] CO2 [Moles/Vol] 28 mmol/L Normal 21-31 [facility] Comment on above: Performed By: #### 7 [id number] #### [facility] [address] [place] [address] Potassium [Moles/Vol] 4.4 mmol/L Normal 3.5-5.3 [facility] Comment on above: Performed By: #### 7 [id number] #### [facility] [address] [place] [address] Sodium [Moles/Vol] 137 mmol/L Normal 135-145 [facility] Comment on above: Performed By: #### 7 [id number] #### [facility] [address] [place] [address] Physician Orderon 01-16-2023 Physician Order [id number]# 1.00CD:127 Normal [facility] UA With Cult Reflexon 2022 Bacteria LM Ql (Urine sed) TRACE Normal Trace [facility] Comment on above: Performed By: #### 1 [id number] ####[facility] [address] [place] [address] Bilirubin Ql (U) Negative Normal Negative [facility] Comment on above: Performed By: #### 1 [id number] ####[facility] [address] [place] [address] Clarity (U) CLEAR Normal Clear [facility] Comment on above: Performed By: #### 1 [id number] ####[facility] [address] [place] [address] Color (U) YELLOW Normal Yellow [facility] Comment on above: Performed By: #### 1 [id number] ####[facility] [address] [place] [address] Epithelial cells.squamous LM.HPF (Urine sed) [#/Area] 0-2 Normal 0-2 [facility] Comment on above: Performed By: #### 1 [id number] ####[address] [address] [place] [address] Glucose Test strip (U) [Mass/Vol] Negative Normal Negative [facility] Comment on above: Performed By: #### 1 [id number] ####[address] [address] Hemoglobin Ql (U) 2+ Abnormal Negative [facility] Comment on above: Performed By: #### 1 [id number] ####[address] [address] Ketones (U) [Mass/Vol] Negative Normal Negative [facility] Comment on above: Performed By: #### 1 [id number] ####[address] [address] [place].plasma/[place] .RBC (Bld) [Mass ratio] 4-20 Normal 0-3 [facility] Comment on above: Performed By: #### 1 [id number] ####[address] [address] Mucus Ql (Urine sed) TRACE Normal [facility] Comment on above: Performed By: #### 1 [id number] ####[address] [address] Nitrite Ql (U) Negative Normal Negative [facility] Comment on above: Performed By: #### 1 [id number] ####[address] [address] pH (U) 6.0 [pH] Invalid Interpretation Code 5.0-9.0 [facility] Comment on above: Performed By: #### 1 [id number] ####[address] [address] Protein (U) [Mass/Vol] Negative Normal Negative [facility] Comment on above: Performed By: #### 1 [id number] ####[facility] [address] [place] [address] Specific gravity (U) [Rel density] 1.015 Invalid Interpretation Code 1.005-1.030 [facility] Comment on above: Performed By: #### 1 [id number] ####[facility] [address] [place] [address] Type of Urine collection method Clean Catch Normal [facility] Comment on above: Performed By: #### 1 [id number] ####[facility] [address] [place] [address] Urobilinogen Qn (U) 0.2 {Juan'U}/dL Normal 0.0-1.0 [facility] Comment on above: Performed By: #### 1 [id number] ####[address] [address] WBC Auto Ql (U) Negative Normal Negative [facility] Comment on above: Performed By: #### 1 [id number] ####[facility] [address] [place] [address] WBC LM.HPF (Urine sed) [#/Area] 0-5 Normal 0-5 [facility] Comment on above: Performed By: #### 1 [id number] ####[facility] [address] [place] [address] URINALYSISOrdered By: John Dumont on 01-16-2023 Bacteria LM Ql (Urine sed) Trace /HPF Normal Trace/HPF [facility] [place] Auto SS Bilirubin Ql (U) Negative (01/16/23 7:55 AM) Normal Negative [facility] Auto SS Clarity (U) Clear (01/16/23 7:55 AM) Normal Clear [facility]A Auto SS Color (U) Yellow (01/16/23 7:55 AM) Normal Yellow [facility] [place]A Auto SS Epithelial cells.squamous LM.HPF (Urine sed) [#/Area] 0-2 /HPF Normal 0-2/HPF [facility]A Aut o SS Glucose Test strip (U) [Mass/Vol] Negative (01/16/23 7:55 AM) Normal Negative [facility] UA Auto SS Hemoglobin Ql (U) 2+ *ABN* (01/16/23 7:55 AM) Invalid Interpretation Code Negative [facility] UA Auto SS Ketones (U) [Mass/Vol] Negative (01/16/23 7:55 AM) Normal Negative [facility] UA Auto SS [place].plasma/[place] .RBC (Bld) [Mass ratio] 4-20 /HPF Normal 0-3/HPF [facility] UA Auto SS Mucus Ql (Urine sed) Trace (01/16/23 7:55 AM) Normal [facility] UA Auto SS Nitrite Ql (U) Negative (01/16/23 7:55 AM) Normal Negative [facility] UA Auto SS pH (U) 6.0 *NA* (01/16/23 7:55 AM) Invalid Interpretation Code 5.0 - 9.0 [facility] UA Auto SS Protein (U) [Mass/Vol] Negative (01/16/23 7:55 AM) Normal Negative [facility] UA Auto SS Specific gravity (U) [Rel density] 1.015 *NA* (01/16/23 7:55 AM) Invalid Interpretation Code 1.005 - 1.030 [facility] UA Auto SS UA Spec Desc Clean Catch (01/16/23 7:55 AM) Normal [facility] UA Auto SS Urobilinogen Qn (U) 0.9190627 {Juan'U}/dL Normal 0.0 - 1.0 EU/dL [facility] UA Auto SS WBC Auto Ql (U) Negative (01/16/23 7:55 AM) Normal Negative [facility] UA Auto SS WBC LM.HPF (Urine sed) [...] NATALIE Technologist: ALONDRA Technical Comments Radiation Dose: jhony Zimmer in mGy = na DAP = na Normal [facility] eGFRon 01-16-2023 GFR/1.73 sq M.predicted among non-blacks MDRD (S/P/Bld) [Vol rate/Area] 98 mL/min/1.73 m2 Normal >=59 [facility] Comment on above: Order Comment: Order placed by EKM rule. [id number] Result Comment: Criminal Analyst juliana kidney disease could be indicated at eGFR's of less than 60 mL/min/1.73m2. Kidney failure is indicated at less than 15 mL/min/1.73m2. Performed By: #### 7 [id number] #### [facility] [address] [place] [address] Consent for Treatmenton 12-27 Consent for Treatment [id number]#1 .00CD:127 Normal [facility] Physician Orderon 01-12-2023 Physician Order [id number] #1.00CD:127 Normal [facility] Consent for Treatmenton 12-27 Consent for Treatment [id number]#1 .00CD:127 Normal [facility] Heart and Vascular Office/Cl inic Noteon [...] with voice recognition artificial intelligence software, specifically mPort, Consignd and or Choisr. Substitutions may have occurred voice recognition and artificial intelligence software. ATTESTATION: Documentation services were performed after patient or guardian consented to allow Lawrence Yen to record this visit. RINA dairy nutrition specialist and provider reviewed before signing. RINA: Malathi Perez Follow-up No qualifying data available Problem List/Past [...] C, 1000 mg, Oral, Daily Vitamin [place], [address] International_Unit, Oral, Daily Allergies HYDROcodone (Itching) Social [...] Prophylaxis SARS-CoV-2 (COV (more content not included)... Normal [facility] Comment on above: Result Comment: Elec tronically Signed By: Jose De Jesus ACOSTA, Matthew Gar\.br\Date and Time Signed: 01/09/23 03:44 EDT\.br\Electronically Co-Signed By: Malathi Perez\.br\Date and Time Co-Signed: 12/30/22 19:01 EDT Insurance Correspondenceon 0 01-04-2023 Insurance Correspondence [id number]# 1.00CD:127 [facility] Consent for Treatmenton Consent for Treatment [id number]#1 .00CD:127 [facility] Physician Orderon 12-30-2022 Physician Order [id number]# 1.00CD:127 [facility] Basic Metabolic Panelon 07-28 Anion gap [Moles/Vol] 17 mmol/L Normal 12-[address] [facility] Specialist Comment on above: Result Comment: Effe ctive 06/03/2019 reference range changed. Performed By: #### B SOREN LIPD #### [facility] [address] [id number] Calcium [Mass/Vol] 9.3 mg/dL Normal 8.6-10.2 [facility] Specialist Comment on above: Performed By: #### B SOREN LIPD #### [facility] [address] [place] [id number] Chloride [Moles/Vol] 101 mmol/L Normal 98-107 [facility] Specialist Comment on above: Performed By: #### B SOREN LIPD #### [facility] [address] [id number] CO2 [Moles/Vol] 25 mmol/L Normal 20-31 [facility] Specialist Comment on above: Performed By: #### B MP, LIPD #### [facility] [address] [facility] [place] [place] [id number] Creatinine [Mass/Vol] 0.9 mg/dL Normal 0.7-1.[address] [facility] Specialist Comment on above: Performed By: #### KAMILA Delacruz MP #### [facility] [address] [facility] [place] [id number] eGFRAA 108 mL/min/1.73m2 Normal >60 [facility] Comment on above: Performed By: #### KAMILA Delacruz MP #### [facility] [address] [facility] [place] [id number] eGFRNAA 89 mL/min/1.73m2 Normal >60 [facility] Comment on above: Performed By: #### KAMILA Delacruz MP #### [facility] [address] [place], [place] [id number] Glucose [Mass/Vol] 277 mg/dL High 65-99 [facility] Specialist Comment on above: Result Comment: For FASTING Glucose --- ADA reference ranges: Normal 65-99 mg/dl Prediabetes 100-125 Diabetes >/= 126 Performed By: #### KAMILA Delacruz MP #### [facility] [address] [facility] [place] [id number] Potassium [Moles/Vol] 4.5 mmol/L Normal 3.5-5.5 [facility] Comment on above: Performed By: #### KAMILA Delacruz MP #### [facility] [address] [facility] [place] [id number] Sodium [Moles/Vol] 138 mmol/L Normal 135-146 [facility] Comment on above: Performed By: #### KAMILA Delacruz MP #### [facility] [address] [facility] [place] [id number] Urea nitrogen [Mass/Vol] 16 mg/dL Normal 7-25 [facility] Specialist Comment on above: Performed By: #### KAMILA Delacruz MP #### [facility] [address] [facility] [place] [id number] Hemoglobin A1Con 08-18-2021 EAG 271.87 Normal [facility] Specialist Comment on above: Performed By: #### A 1C #### [facility] [address] [place], [place] [id number] HbA1c (Bld) [Mass fraction] 11.1 % High 4.0-6.0 [facility] Specialist Comment on above: Performed By: #### A 1C #### [facility] [address] [place], [place] [id number] Lipid Panelon 08-18-2021 Cholesterol [Mass/Vol] 123 mg/dL Low 125-200 [facility] above: Result Comment: Low risk < 200mg/dL Borderline risk 201-239 mg/dl High risk > or equal to 240 Performed By: #### B SOREN, LIPD #### [facility] [address] [place], [place] [id number] Cholesterol in HDL [Mass/Vol] 42 mg/dL Normal >40 [facility] Specialist Comment on above: Result Comment: High Cardiovascular Risk HDL <40 mg/dL Low Cardiovascular Risk HDL > or equal to 60 mg/dl Performed By: #### B MP, LIPD #### [facility] [address] [place], [place] [id number] Cholesterol in LDL [Mass/Vol] 52 mg/dL Normal [facility] Comment on above: Result Comment: LDL ATP III CLASSIFICATION LDL less than 100 mg/dl Optimal LDL 100-129 mg/dl Near or above optimal LDL 130-159 Borderline high LDL 160-189 High LDL greater than 189 mg/dl Very High Performed By: #### B MP, LIPD #### [facility] [address] [place], [place] [id number] Cholesterol in VLDL [Mass/Vol] 29 mg/dL Normal [facility] Specialist Comment on above: Performed By: #### B MP, LIPD #### [facility] [address] [place], [place] [id number] Cholesterol.total/Chol esterol in HDL [Mass ratio] 3 {ratio} Normal [facility] Specialist Comment on above: Performed By: #### B MP, LIPD #### [facility] [address] [place], [place] [id number] Triglyceride [Mass/Vol] 145 mg/dL Normal 30-150 [facility] Specialist Comment on above: Result Comment: TRIG ATPIII CLASSIFICATIONS TRIG less than 150 mg/dl Normal TRIG 150-199 mg/dl Borderline High TRIG 200-500 mg/dl High TRIG greather than 500 mg/dl Very High Performed By: #### B MP, LIPD #### [facility] [address] [place], [place] [id number] Microalbumin (with Creat)on 08-18-2021 mALB 4.0 mg/dL Normal [facility] Comment on above: Result Comment: mALB reference range not established. Performed By: #### m ALBC #### [facility] [address] [place], [place] [id number] mALB/Creat Ratio 26.5 MCG/MG Normal [facility] Comment on above: Result Comment: The ADA (Diabetes Care 26:S94-S98, 2003) defines abnormalities in Albumin excretion as follows: Category Result (MCG/MG Creatinine) Normal <30 Microalbuminuria 30-299 Clinical Albuminuria > or = 300 Performed By: #### m ALBC #### [facility] [address] [place], [place] [id number] UCREA 151 mg/dL Normal 39-259 [facility] Comment on above: Performed By: #### m ALBC #### [facility] [address] [place], [place] [id number] QUANTIFERON TB GOLD PLUS (NO N-INC)on 05-19-2021 Comment Incubation performed. Normal [facility] Comment on above: Performed By: #### Q NTTBG #### [facility] [address] [place] [address] Dr. Bryce Kaur Criteria Comment Normal [facility] Comment on above: Result Comment: The QuantiFERON-TB Gold Plus result is determined by subtracting the Nil value from either TB antigen (Ag) tube. The mitogen tube serves as a control for the test. Performed By: #### Q NTTBG #### [facility] [address] [address] [address] Bryce Kaur Mitogen Value >10.00 Normal [facility] Comment on above: Performed By: #### Q NTTBG #### [facility] [address] [address] [address] Bryce Kaur Nill Value 0.04 IU/mL [facility] Comment on above: Performed By: #### Q NTTBG #### [facility] [address] [place] [address] Dr. Bryce Kaur Quantiferon Gold Plus Negative Normal Negative [facility] Comment on above: Result Comment: Chem iluminescence immunoassay methodology Performed By: #### Q NTTBG #### [facility] [address] [place] [address] Dr. Bryce Kaur TB1 Ag Value 0.04 IU/mL Normal [facility] Comment on above: Performed By: #### Q NTTBG #### [facility] [address] [place] [address] Dr. Bryce Kaur TB2 Ag Value 0.06 IU/mL Normal [facility] Comment on above: Performed By: #### Q NTTBG #### [facility] [address] [place] [address] Dr. Bryce Kaur CBC AUTO DIFFon 05-15-2021 BASO # 0.0 103/ul Normal 0.0-0.1 [facility] Comment on above: Performed By: #### C BC #### [facility] [address] [place] [address] Dr. Bryce Kaur Basophils/100 WBC (Bld) 0.4 % Normal 0.2-2.0 [facility] Comment on above: Performed By: #### C BC #### [facility] [address] [place] [address] Dr. Bryce Kaur EO # 0.2 103/ul Normal 0.0-0.7 [facility] Comment on above: Performed By: #### C BC #### [facility] [address] [place] [address] Dr. Bryce Kaur Eosinophils/100 WBC (Bld) 3.5 % Normal 0.9-7.0 [facility] Comment on above: Performed By: #### C BC #### [facility] [address] [place] [address] Dr. Bryce Kaur Erythrocyte distribution width (RBC) [Ratio] 11.9 % Normal 11.0-15.0 [facility] Comment on above: Performed By: #### C BC #### [facility] [address] [address] [address] Bryce Kaur Hematocrit (Bld) [Volume fraction] 42.3 % Normal 42.0-54.0 [facility] Comment on above: Performed By: #### C BC #### [facility] [address] [place] [address] Dr. Bryce Kaur Hemoglobin (Bld) [Mass/Vol] 15.0 g/dL Normal 14.0-18.0 [facility] Comment on above: Performed By: #### C BC #### [facility] [address] [place] [address] Dr. Bryce Kaur IG # 0.01 10e3/ul Normal 0.00-0.03 [facility] Comment on above: Performed By: #### C BC #### [facility] [address] [place] [address] Dr. Bryce Kaur IG % 0.2 % Normal 0.0-0.5 [facility] Comment on above: Performed By: #### C BC #### [facility] [address] [place] [address] Dr. Bryce Kaur LYMPH # 1.6 103/ul Normal 1.2-3.8 [facility] Comment on above: Performed By: #### C BC #### [facility] [address] [place] [address] Dr. Bryce Kaur Lymphocytes/100 WBC (Bld) 33.9 % Normal 20.5-60.0 [facility] Comment on above: Performed By: #### C BC #### [facility] [address] [place] [address] Dr. Bryce Kaur MANUAL DIFF REQ NO Normal [facility] Comment on above: Performed By: #### C BC #### [facility] [address] [place] [address] Dr. Bryce Kaur MCH (RBC) [Entitic mass] 29.2 pg Normal 25.9-34.0 [facility] Comment on above: Performed By: #### C BC #### [facility] [address] [address] [address] Bryce Kaur MCHC (RBC) [Mass/Vol] 35.5 g/dL Critically high 29.9-35.2 [facility] Comment on above: Performed By: #### C BC #### [facility] [address] [address] [address] Bryce Kaur MCV (RBC) [Entitic vol] 82.3 fL Normal 80.0-94.0 [facility] Comment on above: Performed By: #### C BC #### [facility] [address] [address] [address] Bryce Kaur MONO # 0.4 103/ul Normal 0.3-0.8 [facility] Comment on above: Performed By: #### C BC #### [facility] [address] [place] [address] Dr. Bryce Kaur Monocytes/100 WBC (Bld) 8.0 % Normal 1.7-12.0 [facility] Comment on above: Performed By: #### C BC #### [facility] [address] [place] [address] Dr. Bryce Kaur NEUT # 2.5 103/ul Normal 1.4-6.5 [facility] Comment on above: Performed By: #### C BC #### [facility] [address] [place] [address] Dr. Bryce Kaur Neutrophils/100 WBC (Bld) 54.0 % Normal 43.0-75.0 [facility] Comment on above: Performed By: #### C BC #### [facility] [address] [place] [address] Dr. Bryce Kaur Platelet mean volume (Bld) [Entitic vol] 10.0 fL Normal 9.5-13.5 [facility] Comment on above: Performed By: #### C BC #### [facility] [address] [place] [address] Dr. Bryce Kaur PLT 203 103/ul Normal 150-450 [facility] Comment on above: Performed By: #### C BC #### [facility] [address] [address] [address] Bryce Kaur RBC 5.14 106/ul Normal 4.70-6.10 [facility] Comment on above: Performed By: #### C BC #### [facility] [address] [address] [address] Bryce Kaur WBC 4.6 103/ul Normal 4.0-11.0 [facility] Comment on above: Performed By: #### C BC #### [facility] [address] [address] [address] Bryce Kaur LIPID PROFILEon 05-15-2021 CHOL-HDL RATIO NORM SEE BELOW Normal [facility] Comment on above: Result Comment: 3.3 - 4.4 LOW RISK 4.4 - 7.1 AVERAGE RISK 7.1 - 11.0 MODERATE RISK >11.0 HIGH RISK Performed By: #### L IPID, BMP, LIVER #### [facility] [address] [address] [address] Bryce Kaur Cholesterol [Mass/Vol] 114 mg/dL Normal <=200 [facility] Comment on above: Performed By: #### L IPID, BMP, LIVER #### [facility] [address] [address] [address] Bryce Kaur Cholesterol in HDL [Mass/Vol] 41 mg/dL Normal [facility] Comment on above: Performed By: #### L IPID, BMP, LIVER #### [facility] [address] [address] [address] Bryce Kaur Cholesterol in LDL [Mass/Vol] 46.0 mg/dL Normal [facility] Comment on above: Performed By: #### L IPID, BMP, LIVER #### [facility] [address] [address] [address] Bryce Kaur Cholesterol.total/Chol esterol in HDL [Mass ratio] 2.8 {ratio} Normal [facility] Comment on above: Performed By: #### L IPID, BMP, LIVER #### [facility] [address] [address] [address] Bryce Kaur HDL NORMAL > or = 60 mg/dl - LO W CARDIOVASCULAR RISK <40 mg/dl - HIGH CARDIOVASCULAR RISK Normal [facility] Comment on above: Performed By: #### L IPID, BMP, LIVER #### [facility] [address] [address] [address] Bryce Kaur LDL CALC NORMAL SEE BELOW Normal [facility] Comment on above: Result Comment: <100 mg/dl OPTIMAL 100 - 129 mg/dl NEAR OR ABOVE OPTIMAL 130 - 159 mg/dl BORDERLINE HIGH 160 - 189 mg/dl HIGH >190 mg/dl VERY HIGH Performed By: #### L IPID, BMP, LIVER #### [facility] [address] [address] [address] Bryce Kaur Triglyceride [Mass/Vol] 135 mg/dL Normal <=150 [facility] Comment on above: Performed By: #### L IPID, BMP, LIVER #### [facility] [address] [address] [address] Bryce Kaur VLDL CALC 27.0 mg/dL Normal [facility] Comment on above: Performed By: #### L IPID, BMP, LIVER #### [facility] [address] [address] [address] Bryce Kaur LIVER PROFILEon 05-15-2021 Albumin [Mass/Vol] 3.8 g/dL Normal 3.5-5.0 [facility] Comment on above: Performed By: #### L IPID, BMP, LIVER #### [facility] [address] [address] [address] Bryce Kaur Albumin/Globulin [Mass ratio] 1.4 {ratio} Normal [facility] Comment on above: Performed By: #### L IPID, BMP, LIVER #### [facility] [address] [address] [address] Bryce Kaur ALP [Catalytic activity/Vol] 83 U/L Normal 38-126 [facility] Comment on above: Performed By: #### L IPID, BMP, LIVER #### [facility] [address] [address] [address] Bryce Kaur ALT [Catalytic activity/Vol] 59 U/L Normal 21-72 [facility] Comment on above: Performed By: #### L IPID, BMP, LIVER #### [facility] [address] [place] [address] Dr. Bryce Kaur AST [Catalytic activity/Vol] 23 U/L Normal 17-59 [facility] Comment on above: Performed By: #### L IPID, BMP, LIVER #### [facility] [address] [place] [address] Dr. Bryce Kaur BILI, CONJUGATED 0.2 mg/dL Normal 0.0-0.3 [facility] Comment on above: Performed By: #### L IPID, BMP, LIVER #### [facility] [address] [place] [address] Dr. Bryce Kaur Bilirubin [Mass/Vol] 0.9 mg/dL Normal 0.2-1.3 [facility] Comment on above: Performed By: #### L IPID, BMP, LIVER #### [facility] [address] [place] [address] Dr. Bryce Kaur Globulin (S) [Mass/Vol] 2.7 g/dL Normal [facility] Comment on above: Performed By: #### L IPID, BMP, LIVER #### [facility] [address] [place] [address] Dr. Bryce Kaur Protein [Mass/Vol] 6.5 g/dL Normal 6.1-8.2 [facility] Comment on above: Performed By: #### L IPID, BMP, LIVER #### [facility] [address] [place] [address] Dr. Bryce Kaur PROF CHEM 8 (BAS METB)on Anion gap [Moles/Vol] 9.9 mmol/L Normal [facility] Comment on above: Performed By: #### L IPID, BMP, LIVER #### [facility] [address] [place] [address] Dr. Bryce Kaur Calcium [Mass/Vol] 9.5 mg/dL Normal 8.4-10.2 [facility] Comment on above: Performed By: #### L IPID, BMP, LIVER #### [facility] [address] [address] [address] Bryce Kaur Chloride [Moles/Vol] 98 mmol/L Normal 98-107 [facility] Comment on above: Performed By: #### L IPID, BMP, LIVER #### [facility] [address] [place] [address] Dr. Bryce Kaur CO2 [Moles/Vol] 33.2 mmol/L Critically high 22.0-30.0 [facility] Comment on above: Performed By: #### L IPID, BMP, LIVER #### [facility] [address] [address] [address] Bryce Kaur Creatinine [Mass/Vol] 0.87 mg/dL Normal 0.66-1.25 [facility] Comment on above: Performed By: #### L IPID, BMP, LIVER #### [facility] [address] [place] [address] Dr. Bryce Kaur EGFR-AF ICELANDIC >60 Normal >=60 [facility] Comment on above: Performed By: #### L IPID, BMP, LIVER #### [facility] [address] [place] [address] Dr. Bryce Kaur EGFR-NON AF ICELANDIC >60 Normal >=60 [facility] Comment on above: Performed By: #### L IPID, BMP, LIVER #### [facility] [address] [place] [address] Dr. Bryce Kaur Glucose [Mass/Vol] 255 mg/dL Critically high 74-106 [facility] Comment on above: Performed By: #### L IPID, BMP, LIVER #### [facility] [address] [place] [address] Dr. Bryce Kaur Potassium [Moles/Vol] 4.1 mmol/L Normal 3.4-5.0 [facility] Comment on above: Performed By: #### L IPID, BMP, LIVER #### [facility] [address] [place] [address] Dr. Bryce Kaur Sodium [Moles/Vol] 137 mmol/L Normal 137-145 [facility] Comment on above: Performed By: #### L IPID, BMP, LIVER #### [facility] [address] [place], [place] [address] Dr. Bryce Kaur Urea nitrogen [Mass/Vol] 16.0 mg/dL Normal 9.0-20.0 [facility] Comment on above: Performed By: #### L IPID, BMP, LIVER #### [facility] [address] [place], [place] [address] Dr. Bryce Kaur Urea nitrogen/Creatinine [Mass ratio] 18.4 mg/mg Normal [facility] Comment on above: Performed By: #### L IPID, BMP, LIVER #### [facility] [address] [place], [place] [address] Dr. Bryce Kaur Complete Pulmonary Functiono n 09-07-2020 Complete Pulmonary Function [facility] [place] [address] [place] [address] Pulmonary Function Signed Patient: Janice Smyth MR#: [id number] : 1965 Acct:[id number] Age/Sex: 54 / M ADM Date: 09/03/20 Loc: RT Room: Type: [facility] Attending Dr: Antonio Kitchen DO Ordering Provider: Antonio Kitchen DO Date of Service: 09/03/20 Accession #: Copies to: Antonio Kitchen DO The patient was evaluated for some exertional dyspnea and mild asthma. He is a reformed smoker. The nuclear technician reports data is acceptable and reproducible. The [...] DO 09/07/20 1707 Signed By: 10/06/20 1708 [facility] Vital Signs Date Time Vital Sign Value Performing Clinician Anabell solitario 05-08-2023 11:32-0500 Blood Pressure Location Sean COPE [facility] 05-08-2023 11:32-0500 Diastolic blood pressure 83 mm[Hg] Sean COPE [facility] 05-08-2023 11:32-0500 Heart rate 94 /min Sean COPE [facility] 05-08-2023 11:32-0500 Respiratory rate 16 /min Sean COPE [facility] 05-08-2023 11:32-0500 Systolic blood pressure 139 mm[Hg] Sean COPE [facility] 05-01-2023 15:04-0500 Hourly Rounding [facility] 05-01-2023 15:04-0500 Promise to Return [facility] 05-01-2023 14:57-0500 Hourly Rounding [facility] 05-01-2023 14:57-0500 Promise to Return [facility] 05-01-2023 14:55-0500 Hourly Rounding [facility] 05-01-2023 13:39-0500 Promise to Return [facility] 05-01-2023 11:57-0500 Heart rate 83 /min [facility] 05-01-2023 11:57-0500 SaO2% (BldA) [Mass fraction] 96 % [facility] 05-01-2023 11:54-0500 Body temperature 98.24 [degF] [facility] 05-01-2023 11:54-0500 Diastolic blood pressure 85 mm[Hg] Danica [facility] 05-01-2023 11:54-0500 Mean blood pressure 105 mm[Hg] Danica [facility] 05-01-2023 11:54-0500 Systolic blood pressure 146 mm[Hg] [facility] 05-01-2023 07:28-0500 Heart rate 74 /min [facility] 05-01-2023 07:28-0500 SaO2% (BldA) [Mass fraction] 96 % [facility] 05-01-2023 07:27-0500 Diastolic blood pressure 86 mm[Hg] [facility] 05-01-2023 07:27-0500 Mean blood pressure 113 mm[Hg] [facility] 05-01-2023 07:27-0500 Systolic blood pressure 167 mm[Hg] [facility] 05-01-2023 07:27-0500 Body temperature 98.42 [degF] [facility] 05-01-2023 04:30-0500 Blood Pressure Location [facility] 05-01-2023 04:30-0500 Body temperature 98.96 [degF] [facility] 05-01-2023 04:30-0500 Diastolic blood pressure 81 mm[Hg] [facility] 05-01-2023 04:30-0500 Mean blood pressure 105 mm[Hg] [facility] 05-01-2023 04:30-0500 SaO2% (BldA) [Mass fraction] 94 % [facility] 05-01-2023 04:30-0500 Systolic blood pressure 153 mm[Hg] [facility] 05-01-2023 03:30-0500 [facility] 03:30-0500 Body temperature 100.94 [degF] [facility] 05-01-2023 03:30-0500 Mean blood pressure 119 mm[Hg] [facility] 04-30-[facility] 22:45-0500 Blood Pressure [facility] 04-30-2023 19:41-0500 Heart rate 85 /[facility] 19:40-0500 Mean blood pressure 119 mm[Hg] [facility]-30[facility] 19:40-0500 Body temperature 98.06 [degF] [facility] 04-30-2023 03:05-0500 Body temperature 98.06 [degF] [facility] 04-30-2023 03:05-0500 Respiratory rate 19 /min [facility] 04-30-2023 01:00-0500 Mean blood pressure 96 mm[Hg] [facility] 04-30-[facility]23 00:40-0500 Respiratory rate 18 /min [facility] 04-29-2023 23:40-0500 Heart rate 76 /min Danica [facility] 04-29-2023 17:00-0500 pulse [facility] 04-29-2023 16:50-0500 Heart rate 72 /min [facility] 04-28-2023 23:48-0500 Heart rate 90 /min [facility] 04-28-2023 23:30-0500 Respiratory rate 10 /min [facility] 04-28-2023 23:00-0500 Respiratory rate 18 /min [facility] 04-28-2023 22:04-0500 Respiratory rate 19 /min [facility] 04-28-2023 20:40-0500 gluc 327 mg/dL [facility] 04-28-2023 20:40-0500 gluc [facility] 04-28-2023 20:38-0500 Heart rate 98 /min [facility] 03-27-2023 09:12-0400 Blood Pressure Location Sean COPE [facility] 03-27-2023 09:12-0400 Diastolic blood pressure 76 mm[Hg] Sean COPE [facility] 03-27-2023 09:12-0400 Heart rate 71 /min Sean COPE [facility] 03-27-2023 09:12-0400 Respiratory rate 16 /min Sean COPE [facility] 03-27-2023 09:12-0400 Systolic blood pressure 139 mm[Hg] Sean COPE [facility] 02-07-2023 15:00-0400 Diastolic blood pressure 80 mm[Hg] Yann Atwood [facility] 02-07-2023 15:00-0400 Heart rate 86 /min Yann Atwood [facility] 02-07-2023 15:00-0400 SaO2% (BldA) [Mass fraction] 98 % Yann Atwood [facility] 02-07-2023 15:00-0400 Systolic blood pressure 150 mm[Hg] Yann Atwood [facility] 02-07-2023 14:01-0400 Heart rate 84 /min Yann Pocos [facility] 02-07-2023 14:01-0400 SaO2% (BldA) [Mass fraction] 97 % Yann Pocos [facility] 02-07-2023 14:01-0400 Respiratory rate 18 /min Yann Pocos [facility] 02-07-2023 14:01-0400 Blood Pressure Location Yann Pocos [facility] 02-07-2023 14:01-0400 Diastolic blood pressure 86 mm[Hg] Yann Pocos [facility] 02-07-2023 14:01-0400 Mean blood pressure 106 mm[Hg] Yann Pocos [facility] 02-07-2023 14:01-0400 Systolic blood pressure 147 mm[Hg] Yann Pocos [facility] 02-07-2023 11:47-0400 Heart rate 74 /min Yann Pocos [facility] 02-07-2023 11:47-0400 SaO2% (BldA) [Mass fraction] 97 % Yann Pocos [facility] 02-07-2023 11:45-0400 Respiratory rate 20 /min Yann Pocos [facility] 02-07-2023 11:45-0400 Body temperature 97.34 [degF] Yann Pocos [facility] 02-07-2023 11:44-0400 Blood Pressure Location Yann Pocos [facility] 02-07-2023 11:44-0400 Diastolic blood pressure 88 mm[Hg] Yann Pocos [facility] 02-07-2023 11:44-0400 Mean blood pressure 111 mm[Hg] Yann Pocos [facility] 02-07-2023 11:44-0400 Systolic blood pressure 157 mm[Hg] Yann Pocos [facility] 02-07-2023 11:35-0400 Blood Pressure Location Yann Pocos [facility] 02-07-2023 11:35-0400 Body temperature 98.42 [degF] Yann Pocos [facility] 02-07-2023 11:35-0400 Mean blood pressure 106 mm[Hg] Yann Pocos [facility] 02-07-2023 11:35-0400 Respiratory rate 12 /min Yann Pocos [facility] 02-07-2023 11:25-0400 Mean blood pressure 118 mm[Hg] Yann Pocos [facility] 02-07-2023 11:25-0400 Respiratory rate 10 /min Yann Pocos [facility] 02-07-2023 11:15-0400 Mean blood pressure 117 mm[Hg] Yann Pocos [facility] 02-07-2023 11:15-0400 Respiratory rate 12 /min Yann Pocos [facility] 02-07-2023 10:42-0400 Body temperature 98.42 [degF] Yann Pocos [facility] 02-07-2023 06:24-0400 Mean blood pressure 111 mm[Hg] Yann Pocos [facility] 02-07-2023 06:21-0400 Heart rate 66 /min Yann Pocos [facility] 01-16-2023 07:52-0400 Diastolic blood pressure 92 mm[Hg] Yann Pocos [facility] 01-16-2023 07:52-0400 Heart rate 75 /min Yann Pocos [facility] 01-16-2023 07:52-0400 Mean blood pressure 116 mm[Hg] Yann Pocos [facility] 01-16-2023 07:52-0400 Systolic blood pressure 163 mm[Hg] Yann Pocos [facility] 01-16-2023 07:51-0400 Heart rate 66 /min Yann Pocos [facility] 01-16-2023 07:51-0400 SaO2% (BldA) [Mass fraction] 97 % Yann Pocos [facility] 01-16-2023 07:50-0400 Body temperature 98.24 [degF] Yann Pocos [facility] 01-16-2023 07:50-0400 Blood Pressure Location Yann Pocos [facility] 01-16-2023 07:50-0400 Diastolic blood pressure 97 mm[Hg] Yann Pocos [facility] 01-16-2023 07:50-0400 Mean blood pressure 118 mm[Hg] Yann Pocos [facility] 01-16-2023 07:50-0400 Systolic blood pressure 161 mm[Hg] Yann Pocos [facility] 01-16-2023 07:50-0400 Respiratory rate 16 /min Yann Pocos [facility] 01-12-2023 10:46-0400 Diastolic blood pressure 92 mm[Hg] Estephania VILLANUEVA [facility] 01-12-2023 10:46-0400 Mean blood pressure 117 mm[Hg] Estephania VILLANUEVA [facility] 01-12-2023 10:46-0400 Systolic blood pressure 168 mm[Hg] Estephaniaricki VILLANUEVA [facility] 01-12-2023 10:29-0400 Blood Pressure Location Estephaniaricki VILLANUEVA [facility] 01-12-2023 10:29-0400 Diastolic blood pressure 90 mm[Hg] Estephaniaricki VILLANUEVA [facility] 01-12-2023 10:29-0400 Heart rate 61 /min Estephania VILLANUEVA [facility] 01-12-2023 10:29-0400 SaO2% (BldA) [Mass fraction] 98 % Estephania VILLANUEVA [facility] 01-12-2023 10:29-0400 Systolic blood pressure 168 mm[Hg] Estephaniaricki VILLANUEVA [facility] 11-24-2021 14:25-0400 Diastolic blood pressure 80 mm[Hg] Matthew Darrylerson [facility] 11-24-2021 14:25-0400 Mean blood pressure 106 mm[Hg] Matthew Christofferson [facility] 11-24-2021 14:25-0400 Systolic blood pressure 159 mm[Hg] Matthew Christofferson [facility] 11-24-2021 14:15-0400 Blood Pressure Location Matthew Christofferson [facility] 11-24-2021 14:15-0400 Diastolic blood pressure 81 mm[Hg] Matthew Christofferson [facility] 11-24-2021 14:15-0400 Heart rate 66 /min Matthew Muñozofferson [facility] 11-24-2021 14:15-0400 Respiratory rate 18 /min Matthew Dela Cruz [facility] 11-24-2021 14:15-0400 SaO2% (BldA) [Mass fraction] 100 % Matthew Dela Cruz [facility] 11-24-2021 14:15-0400 Systolic blood pressure 153 mm[Hg] Matthew Dela Cruz [facility] Encounters Encounter Date Encounter Type Care Provider Facility Start: 06-12-2023 ambulatory Sean COPE [facility] ty:[facility] Start: 06-01-2023 End: 06-01-2023 ambulatory MATHEUS MCKINNON Not Available Start: 06-01-2023 End: 06-01-2023 ambulatory ANTONIO KITCHEN Not Available Start: 05-31-2023 End: 05-31-2023 ambulatory SOUMYA LOMAX Not Available Start: 05-30-2023 End: 05-30-2023 ambulatory DEION HAMLIN Not Available Start: 05-24-2023 End: 05-24-2023 ambulatory ANTONIO KITCHEN Not Available Start: 05-23-2023 End: 05-23-2023 ambulatory MATHEUS SKYERLuís Not Available Start: 05-19-2023 End: 05-19-2023 ambulatory DEION HAMLIN Not Available Start: 05-17-2023 End: 05-17-2023 ambulatory YANN ATWOOD Not Available Start: 05-08-2023 End: 05-09-2023 ambulatory Sean COPE Facility:[facility] Start: 05-08-2023 End: 05-08-2023 Patient encounter procedure Sean COPE [facility] Start: 04-29-2023 End: 05-01-2023 Evaluation and management of inpatient Edward Castillo [place] Start: 04-28-2023 End: 05-01-2023 Evaluation and management of inpatient Danica Antonio [facility] Start: 04-27-2023 End: 04-28-2023 ambulatory Sean R COPE Facility:[id number] Start: 04-24-2023 End: 04-24-2023 ambulatory MATHEUS SKYERLuís Not Available Start: 04-18-2023 End: 04-19-2023 ambulatory MATHEUS WEANGELIAERD Not Available Start: 04-13-2023 End: 04-13-2023 ambulatory DEION Staley YAKELIN Not Available Start: 04-12-2023 End: 04-12-2023 ambulatory YANN Grant POCOS Not Available Start: 04-11-2023 End: 04-11-2023 ambulatory DEION Luís HAMLIN Not Available Start: 03-27-2023 End: 03-28-2023 ambulatory ANTONIO KITCHEN Facility:[facility] [place] Start: 03-27-2023 End: 03-27-2023 Patient encounter procedure Sean COPE [facility] Start: 03-08-2023 End: 03-09-2023 ambulatory Yann Grant [place]ocos [place] Start: 03-08-2023 End: 03-08-2023 Patient encounter procedure Yann Grant Pocos [facility] Start: 02-07-2023 End: 02-07-2023 ambulatory Yann Grant [place]ocos [place] Start: 02-07-2023 End: 02-07-2023 Admission to same day surgery center Yann Grant Pocos [facility] Start: 01-16-2023 End: 01-17-2023 ambulatory Yann Grant [place]ocos [place] Start: 01-16-2023 End: 01-16-2023 Patient encounter procedure Yann Venturaos [facility] Start: 01-12-2023 End: 01-13-2023 ambulatory Estephania VILLANUEVA [place] Start: 01-12-2023 End: 01-12-2023 Patient encounter procedure Estephania VILLANUEVA [facility] Start: 01-09-2023 End: 01-10-2023 ambulatory Matthew Dela Cruz [place] Start: 01-09-2023 End: 01-09-2023 Patient encounter procedure Matthew Dela Cruz [facility] Start: 01-06-2023 ambulatory Yann Atwood Facility:[facility] Start: 12-30-2022 End: 12-31-2022 ambulatory Matthew Dela Cruz [place] Start: 11-24-2021 End: 11-24-2021 Patient encounter procedure Matthew Dela Cruz [facility] Start: 05-15-2021 End: 05-16-[address] RANJEET CORNELL Facility: Procedures Date Procedure Procedure Detail Performing Clinician Start: 04-27-2023 Extracorporeal shock wave lithotripsy of calculus of kidney Sean COPE Start: 02-07-2023 Total knee replacement Yann Mahsa Start: 02-24-2020 Cardiac catheterization Matthew Dela Cruz Start: 12-26-2019 Coronary artery sten t (physical object) Sean COPE Comment on above: x1 Start: 12-26-2019 Percutaneous coronar y intervention Matthew Dela Cruz Start: 01-03-2019 Excision of malignan t skin tumor Sean COPE Start: 07-26-2018 Transurethral cystoscopy Sean PRISCA Start: 09-22-2017 Radiofrequency ablation Sean COPE Start: 07-12-2017 Laser ablation of prostate Sean COPE Start: 06-08-2017 Cystourethroscopy wi th dilation of urethral stricture Sean COPE Start: 05-29-2005 Shoulder joint unsta ble (finding) Matthew Dela Cruz Comment on above: rotater cuff Start: 05-29-2003 Fracture of hand (disorder) Matthew Dela Cruz Start: 05-29-2001 Tonsillectomy Matthew hess Start: 05-29-1978 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) Matthew Dela Cruz Start: 05-29-1973 Bone structure of fe mur (body structure) Matthew Dela Cruz 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) Matthew Dela Cruz Comment on above: x1 Immunizations Immunization Date Immunization Notes Care Provider [facility] 03-29-2022 pneumococcal 20-valent conjugate vaccine Sean COPE [facility] 03-04-2022 influenza virus vaccine, unspecified formulation Sean COPE [facility] 03-09-2021 influenza virus vaccine, unspecified formulation Sean COPE [facility] 03-09-2021 SARS-CoV-2 (COVID-19 ) mRNA BNT-162b2 vax Sean COPE [facility] 08-28-2020 COVID-19, mRNA, LNP-S, PF, 30 mcg/0.3 mL dose Matthew Dela Cruz [facility] Comment on above: Reason for Medicatio n: Prophylaxis 08-07-2020 COVID-19, mRNA, LNP-S, PF, 30 mcg/0.3 mL dose Matthew Dela Cruz [facility] Comment on above: Reason for Medicatio n: Prophylaxis 03-02-2020 influenza virus vaccine, unspecified formulation Sean COPE [facility] [place] Payers Date Payer Category Payer Unknown [id number] 2.16.84 [id number] 1963 Unknown [id number] 2.16.840 .1.466949.3.579.2.1258 1963 Unknown [id number] 2.16.840 .1.612152.3.579.2.1258 1963 Unknown [id number] 2.16.840 .1.072505.3.579.2.1258 1963 Unknown [id number] 2.16.840 .1.848272.3.579.2.1258 1963 Unknown [id number] 2.16.840 .1.910912.3.579.2.1258 1963 Unknown [id number] 2.16.840 .1.216811.3.579.2.1258 1963 Unknown [id number] 2.16.840 .1.390504.3.579.2.1258 1963 Unknown [id number] 2.16.840 .1.371576.3.579.2.1258 1963 Unknown [id number] 2.16.840 .1.946065.3.579.2.1258 1963 Unknown [id number] 2.16.840 .1.994693.3.579.2.1258 1963 Unknown [id number] 2.16.840 .1.204968.3.579.2.1258 1963 Unknown [id number] 2.16.840 .1.672699.3.579.2.1258 1963 Unknown [id number] 2.16.840 .1.579846.3.579.2.1259 11-1964 Unknown [id number] 2.16.840 .1.455218.3.579.2.1258 1963 Unknown [id number] 2.16.840 .1.315615.3.579.2.1258 1963 Unknown [id number] 2.16.840 .1.347870.3.579.2.1258 1963 Unknown [id number] 2.16.840 .1.581315.3.579.2.1258 1963 Unknown [id number] 2.16.840 .1.263947.3.579.2.1258 1963 Unknown [id number] 2.16.840 .1.247854.3.579.2.1258 1963 Unknown [id number] 2.16.840 .1.470528.3.579.2.1258 1963 Unknown [id number] 2.16.840 .1.794380.3.579.2.1258 1963 Unknown [id number] 2.16.840 .1.868585.3.579.2.1258 1963 Unknown [id number] 2.16.840 .1.506896.3.579.2.1258 1963 Unknown [id number] 2.16.840 .1.327574.3.579.2.1258 1963 Unknown [id number] 2.16.840. 1.952343.3.579.2.1258 1963 Unknown [id number] 2.16.840. 1.402899.3.579.2.1258 1963 Unknown [id number] 2.16.840. 1.552566.3.579.2.1258 1963 Unknown [id number] 2.16.840. 1.734858.3.579.2.1258 1963 Unknown [id number] 2.16.8 40.1.405888.3.579.2. 1963 Unknown [id number] 2.16.8 40.1.115847.3.579.2. 1963 Unknown [id number] 2.16.8 40.1.908382.3.579.2. 1963 Unknown [id number] 2.16.8 40.1.962171.3.579.2. 1963 Unknown [id number] 2.16.8 40.1.843199.3.579.2. 1963 Unknown [id number] 2.16.8 40.1.756891.3.579.2. 1963 Unknown [id number] 2.16.8 40.1.336002.3.579.2. 1963 Unknown [id number] 2.16.8 40.1.144544.3.579.2. 1963 Unknown [id number] 2.16.8 40.1.479421.3.579.2. 1963 Unknown [id number] 2.16.8 40.1.024078.3.579.2. 1963 Unknown [id number] 2.16.8 40.1.947626.3.579.2. 1963 Unknown [id number] 2.16.8 40.1.028384.3.579.2.727 1959 Unknown [id number] Social History Date Type Detail Facility Tobacco Cigarettes [facility] Comment on above: [place] [facility] yrs ago[place] [place] Sex Assigned At Male [facility] Start: 12-30-2022 End: 05-08-2023 Tobacco smoking status Ex-smoker (finding) [facility] Comment on above: quit 29 yrs ago[place] [place]-1.5pp[place] Tobacco smoking status Never [facility] Comment on above: quit 29 yrs ago[place] [place] 1-1.5ppd Medical Equipment Procedure Code Equipment [...] Start: 02-07-2023 KNEE TOTAL ROBOT ARTHROPLASTY Pocos DOYann 02/07/23 Unknown Knee R FDA Start: 02-07-2023 KNEE TOTAL ROBOT ARTHROPLASTY Pocos DOYann 02/07/23 Unknown Knee R FDA Start: 02-07-2023 PCI Unknown 12/25 Non Biological Other FDA Start: 12-26-2019 KNEE TOTAL ROBOT ARTHROPLASTY Pocos DOYann 02/07/23 Unknown Knee R FDA Start: 02-07-2023 KNEE TOTAL ROBOT ARTHROPLASTY Pocos DOYann 02/07/23 Unknown Knee R FDA Start: 02-07-2023 KNEE TOTAL ROBOT ARTHROPLASTY Pocos DOYann 02/07/23 Unknown Knee R FDA Start: 02-07-2023 KNEE TOTAL ROBOT ARTHROPLASTY Pocos DOYann 02/07/23 Unknown Knee R FDA Start: 02-07-2023 PCI Unknown 12/25 Non Biological Other FDA Start: 12-26-2019 Functional Status Date Assessment Result Facility 05-08-2023 Functional Status N/A [facility] 04-29-2023 Functional Status No [facility] 04-28-2023 Functional Status [facility] 03-27-2023 Functional Status N/A [facility] 01-16-2023 Functional Status No [facility] 01-12-2023 Functional Status No [facility] 11-24-2021 Functional Status N/A [facility] Clinical Notes 01-10-2023 to 05-08-2023 Note Date & Type Note Facility 05-08-2023 Hospital Discharge instructions Patient Education 05/08/2023 12:13:08 Kidney Stones, Wful-cz-Qqiv Kidney Stones Kidney stones are rock-like masses [...] Follow these instructions at home: Medicines Take nzhx-jca-fptcrth and prescription medicines only as told by [...] provider. Document Revised: 01/17/2022 Document Reviewed: 01/17/2022 [employer] Patient Education 2022 [employer]. Follow Up Care 05/01/2023 10:55:44 With:PRISCA ACOSTA, Sean Stovall, URL Address: [facility] [address] , [place] [address]- [phone] When:Within 1 Month(s) [facility] 05-02-2023 Note Admission and Discha rge Information [...] secondary to recent lithotripsy performed by Dr. Prisca ahmadi at [facility] 12/1. Pt was admitted to the hospital for [...] with IV fluids with resolution of LUIS IMGUEL. Patient complained of constipation was provided with [...] 61.6 % Lymph Auto - 26.8 % [place] Auto - 8.9 % Eos Auto - 2.3 % Basophil Auto - 0.4 % Neutro Absolute - 3.1 E9/L Lymph Absolute - 1.3 E9/L [place] Absolute - 0.4 E9/L Eos Absolute - [...] - 280 mg/dL POC Device SN - [id number] POC User ID - [id number] POC Username - JOHANA SPAIN CBC w/ Auto Diff (04/30/2023) WBC - 5.0 E9/L RBC - 3.3 E12/L Hgb - 9.4 gm/dL Hct - 27.2 % MCV - 82.5 fL MCH - 28.5 pg MCHC - 34.5 gm/dL RDW - 13.7 % Platelet - 156.0 E9/L MPV - 8.1 fL Crossmatch (04/29/2023) Computer XM I (more content not included)... [facility] Comment on above: Result Comment: Elec tronically Signed By: Huyen DE LOS SANTOS\.br\Date and Time Signed: 05/02/23 14:47 EST\.br\Electronically Co-Signed By: Edward Castillo DO\.br\Date and Time Co-Signed: [...] that it is safe. General instructions Take gnaz-tjc-ywkalin and prescription medicines only as told by [...] provider. Document Revised: 07/02/2021 Document Reviewed: 07/02/2021 [employer] Patient Education 2022 [employer] Follow Up Care 04/28/2023 20:38:22 With:Sean COPE Address: [facility] [address], [place], [place] [id number] Business (1) When:05/08/2023 11:00:00 With:ANTONIO KITCHEN Address: [address] [facility] [place] [address] When: Unknown [facility] 04-30-2023 Evaluation + Plan note Extrac aissatou from: Title:Urology Progress Note Author:Zac COPE MD R Date:04/30/23 Impression and Plan Impression: #1. His [...] from Monday. Extracted from: Title:Urology Consult Note Author:Doris COPE MD R Date:04/29/23 Impression and Plan Impression: #1. This gentleman has a right-sided perinephric hematoma from ESWL done 2 days ago. He is hemodynamically stable. His hemoglobin may be plateauing out in the 7.7 range. At this time, it does not seem as though he will need to be transferred to [facility] for interventional radiology assistance. 2. Right nephrolithiasis. [...] artery disease (I25.10: Atherosclerotic heart disease of andreafski coronary artery without angina pectoris) s/p stent in 2019 CT Chest showed extensive calcifications of the LAD [place] [facility] 8. HTN (hypertension) (I10: Essential (primary) hypertension) Holding Losartan due to LUIS MIGUEL. 9. Kidney stones (N20.0: Calculus of kidney) s/p lithotripsy by Dr Cope on 04/27 at [facility] 10. Type 2 diabetes mellitus (E11.9: [...] Date:05/08/2023 11:00:00 AM Scheduled Provider:Sean COPE MD Location:[facility] Appointment Type:URO Office Visit Diagnostic Tests Pending * UA With Cult Reflex 04/28/[address] [facility]12-02-2023 NoteBasic Information Admit Date/Time:04/28/2023 23:03 Chief Complaint [...] He is s/plithotripsy by Dr Cope at [facility] yesterday. Apparently had a lot of [...] 20:55:00) Lymph Auto: 22.8 % (04/28/23 20:55:00) Woodford Auto: 8.2 % (04/28/23 20:55:00) Eos Auto: 0.6 % (04/28/23 20:55:00) Basophil Auto: 0.4 % (04/28/23 20:55:00) Neutro Absolute: 4.7 E9/L (04/28/23 20:55:00) Lymph Absolute: 1.6 E9/L (04/28/23 20:55:00) [place]ford Absolute: 0.6 E9/L (04/28/23 20:55:00) Eos Absolute: [...] mg/dL High (04/28/23 23:29:00) POC Device SN: [id number] (04/28/23 23:29:00) POC User ID: [id number] (04/28/23 23:29:00) POC Username: WILLIAM RICHTER (04/28/23 23:29:00) Assessment/Plan 1. Chest pain (R07.9: Chest pain, unspecified) Likely due to effects of below hematoma in conjunction with hypoperfusion from anemia with hx CAD Initial troponin negative Cycle troponins x4 2. Perinephric hematoma (S37.019A: Minor contusion of unspecified kidney, initial encounter) Complication for recent lithotripsy. Supportive care. Treat (more content not included)...[facility] Comment on above:Result Comment: Electronically Signed By: Danica Antonio MD\.br\Date and Time Signed: 04/29/23 00:36 [id number] Hospital Discharge instructions Patient Education 03/27/2023 09:38:53 Kidney Stones, Adph-fu-Nwqm Kidney Stones Kidney stones are rock-like masses [...] Follow these instructions at home: Medicines Take pthm-zfs-vbqpehs and prescription medicines only as told by [...] provider. Document Revised: 01/17/2022 Document Reviewed: 01/17/2022 [employer] Patient Education 2022 [employer]. Follow Up Care 01/06/2023 10:09:26 With:PRISCA ACOSTA, Sean Stovall, URL Address: [facility] [address], [place] [phone] When: Unknown Comments:sched laser litho [facility] 09-12-2023 Evaluation + Plan noteExtracted from: Title:ANES Post General/Spinal Author:Deion Rodriguez Date:02/07/23 Plan Transfer/Discharge: Patient exhibiting no signs of N/V. Hydration status is adequate. Extracted from: Title:Deo Basic PRE Author:Curly Desouza DO Date:02/07/23 Plan [place] [employer] (ASA) physical status classification: Class III. Anesthetic Preoperative Plan: Anesthesia General, and Monitored anethesia care. Regional Spinal, and Right Adductor Canal Block. Future Appointments Appointment Date:03/27/2023 09:00:00 AM Scheduled Provider:Sean COPE MD Location:[facility] Appointment Type:URO New Patient [facility]09-12-2023 Hospital Discharge instructions Patient Education 02/07/2023 11:45:38 Post Op Patient Instructions - (Custom) (CUSTOM) 02/07/2023 11:45:34 How to Use [...] as possible. If the spirometer includes a coach builder indicator, use this to guide you in [...] provider. Document Revised: 08/03/2020 Document Reviewed: 08/03/2020 [employer] Patient Education 2022 [employer] - [employer]. 02/07/2023 11:45:33 Knee Cryocuff Patient Instructions - FT (CUSTOM) 02/07/2023 06:54:39 [place]os - Total Knee Arthroplasty. Revised 08/09/22. (Custom) [place], [place] [facility] DISCHARGE INSTRUCTIONS TOTAL KNEE [...] will continue at home, possible with the clinical physician assistant of Home Health Physical Therapy or in [...] FOLLOW-UP OFFICE VISIT: 4 weeks postop. Yann Atwood, DO [facility] [address] [place], [place] [id number] Reviewed: 09-03 Revised 06/09 Follow Up Care 01/04/2023 15:37:47 With:Yann Atwood Address: [address] [place] [address]- Business (1) When:03/08/2023 10:30:00 Comments:Appointment has already been scheduledCall for any problems. [facility]09-08-2023 Note [id number]:127[facility] 01-10-2023 NoteEchocardiology Procedure Exam Date/Time Accession # Ordering Dr. Rivera Transthoracic 01/09/2023 09:04 EDT [id number] Jose De Jesus ACOSTA, Matthew Gar CPT code [id number] Reason for Exam (Echo Transthoracic Complete) I25.10;CAD Coronary artery disease Report Version: 1 Study ID: [id number] [id number] Adult Echocardiogram Report Name: JANICE SMYTH Study Date: 01/09/2023, 8: 12 AM [place] [facility] [place] 1965 (MM/DD/YYYY) Gender: Male Age: 57 Years Height: 185.42 cm BP: 162 / 93 mmHg Weight: 98.431 kg HR: 62 bpm BSA: 2.23 m? Ordering Physician: Matthew Dela Cruz Referring Physician: Matthew Dela Cruz Performed By: Kerri Paniagua RDCS Reason For Study: CAD Coronary artery disease History: CAD, NH, Stent x1, HTN, DM Interpretation Summary Ejection [...] by: Matthew Dela Cruz MD Transcribed by: [facility] Technologist: [facility] Plan note No data available for this section [facility] Future Appointments Appointment Date:01/16/2023 07:30:00 AM Scheduled Provider: Location:[facility] Appointment Type:Surgical PAT FT Appointment Date:01/16/2023 08:30:00 AM Scheduled [facility]:CT Lower Extremity (FT) Appointment Date:02/07/2023 09:00:00 AM Scheduled Provider: Location:[facility] Appointment Type:Surgery FT Appointment Date:02/10/2023 09:30:00 AM Scheduled Provider:Estephania VILLANUEVA CNP [facility]:Cardiology Follow Up (FT) Appointment Date:03/27/2023 09:00:00 AM Scheduled Provider:Sean COPE MD Location:[facility] Appointment Type:URO New Patient Future Scheduled Tests Radiology* CT Lower Extremity w/o Contrast Right 01/16/[address] [facility] Future Appointments Appointment Date:01/16/2023 07:30:00 AM Scheduled Provider: Location:[facility] Appointment Type:Surgical PAT FT Appointment Date:01/16/2023 08:30:00 AM Scheduled Provider: Location[facility] Appointment Type:CT Lower Extremity (FT) Appointment Date:02/07/2023 09:00:00 AM Scheduled Provider: Location:[facility] Appointment Type:Surgery FT Appointment Date:03/27/2023 09:00:00 AM Scheduled Provider:Sean COPE MD Location:[facility] Appointment Type:URO New Patient Future Scheduled Tests Radiology* CT Lower Extremity w/o Contrast Right 01/16/[address] Future Appointments Appointment Date:02/07/2023 09:00:00 AM Scheduled Provider: Location:[facility] Appointment Type:Surgery FT Appointment Date:03/27/2023 09:00:00 AM Scheduled Provider:Sean COPE MD Location:[facility] Appointment Type:URO [facility] Future Appointments Appointment Date:03/27/2023 09:00:00 AM Scheduled Provider:Sean COPE MD Location:[facility] Appointment Type:URO [facility] Future Appointments Appointment Date:06/12/2023 09:15:00 AM Scheduled Provider:Sean COPE MD Location:[facility] Appointment Type:URO Office Visit Diagnostic Tests Pending * CBC w/ Auto Diff 05/08/23 [facility] Hospital Discharge instructions No data available for this section [facility] No data available for this section [facility] Summary Purpose Family History No Family History Records FoundNo Family History Records FoundNo Family History Records Found No data available for this section No data available for this section No data available for this section No data available for this section No Family History Records FoundNo Family History Records Found Advance Directives No Advanced Directives Records FoundNo Advanced Directives Records FoundNo Advanced Directives Records FoundNo Advanced Directives Records FoundNo Advanced Directives Records Found Additional Source Comments (unrecognized sect ion and content) No Status Records FoundNo Status Records FoundNo Status Records FoundNo Status Records FoundNo Status Records Found INFORMATION SOURCE (unrecogn ized section and content) DATE CREATED AUTHOR 05/21/2021 [facility] DATE CREATED AUTHOR AUTHOR'S ORGANIZ ATION 07/05/2021 [facility] DATE CREATED AUTHOR AUTHOR'S ORGANIZ ATION 08/19/2021 [facility] dical Specialist DATE CREATED AUTHOR AUTHOR'S ORGANIZ ATION 06/03/2023 [facility] Specialists EPIC DATE CREATED AUTHOR AUTHOR'S ORGANIZ ATION 06/06/2023 [facility] Center Care Team (unrecognized sect ion and content) Personnel Name: ANTONIO KITCHEN DO Address: [address] [place] [address] Personnel Name: ANTONIO KITCHEN DO Address: Address: [address] [place] [address] Personnel Name: ANTONIO KITCHEN DO Address: Address: [address] [place] [address] Personnel Name: ANTONIO KITCHEN DO Address: Address: [address] [place] [address] Personnel Name: ANTONIO KITCHEN DO Address: Address: [address] [place] [address] Personnel Name: ANTONIO KITCHEN DO Address: Address: [address] [place] [address] Personnel Name: ANTONIO KITCHEN DO Address: Address: [address] [place] [address] Personnel Name: ANTONIO KITCHEN DO Address: Address: [address] [place] [address] Personnel Name: ANTONIO KITCHEN DO Address: Address: [address] [place] [address] FOR RECORDS PERTAINING TO PATIENTS WHO ARE [...] BE BASED ON THE PRIMARY CLINICAL RECORDS. [employer] [facility]. provides no warranty or guarantee of the accuracy or completeness of information in this document.
[2023-06-07 10:45] LABS: Basophils Percent Auto 0.7 % (0.2-2.0); Eosinophils Absolute Auto 0.1 10^3/uL (0.0-0.7); Eosinophils Percent Auto 1.8 % (0.9-7.0); Hemoglobin 11.3 g/dL (14.0-18.0); Immature Granulocytes Abs Auto 0.01 10^3/uL (0.00-0.03); Immature Granulocytes Pct Auto 0.2 % (0.0-0.5); Lymphocytes Absolute Auto 1.4 10^3/uL (1.2-3.8); Lymphocytes Percent Auto 31.5 % (20.5-60.0); Mean Corpuscular HGB Conc 32.3 g/dL (29.9-35.2); Mean Corpuscular Hemoglobin 27.2 pg (25.9-34.0); Mean Corpuscular Volume 84.1 fL (80.0-94.0); Mean Platelet Volume 9.8 fL (9.5-13.5); Monocytes Absolute Auto 0.4 10^3/uL (0.3-0.8); Monocytes Percent Auto 8.8 % (1.7-12.0); Neutrophils Absolute Auto 2.6 10^3/uL (1.4-6.5); Platelet Count 263 10^3/uL (150-450); Red Blood Count 4.16 10^6/uL (4.70-6.10); Red Cell Distribution Width 12.8 % (11.0-15.0); White Blood Count 4.6 10^3/uL (4.0-11.0)
== END 2023-06-07 10:21 | disposition home or self-care (01) ==
LOC: LAB 10:20
PROVIDERS: PCP Internal Medicine; Visit Provider Urology
DX: S37.019A Minor contusion of unspecified kidney, initial encounter (principal)
CPT/HCPCS: 36415; 85025

== ENCOUNTER 2023-07-07 11:43 | Outpatient (OUT) | payer BC, SELFPAY ==
--- NOTE | 2023-07-07 | US_ITS ---
[address] [place] [id number] Patient Name: JANICE YING MRN: [id number] date: 1965 Sex: M Assigned Patient Location: [facility] Current Patient Location: [facility] Accession/Order Number: [id number] Exam Date: 07/07/2023 12:20 Report Date: 07/07/2023 12:59 At the request of: BILLY COPE Procedure: US renal BI EXAM: US renal BI HISTORY: kidney stone prior lithotripsy with resultant hematoma. Right flank pain. COMPARISON: None. TECHNIQUE: Real-time ultrasound imaging of the kidneys and bladder. Findings: The right and left kidneys measure 11.3 and 13.7 cm. There are nonobstructing bilateral renal stones. The largest is within the right and left kidneys measure 0.3 and 0.5 cm. There is mild right-sided pelviectasis. In addition, there is a complex fluid collection along the margin of the right kidney measuring 7.9 x 6.7 x 3.0 cm. There is mass effect upon the adjacent renal parenchyma. Simple left renal cyst measuring 0.5 0.6 x 0.5 cm. The bladder is partially fluid-filled limiting its evaluation. Otherwise, the bladder is unremarkable. US/US renal BI IMPRESSION: 1. Nonobstructing bilateral renal stones. 2. Complex focal fluid collection along the margin of the right kidney likely relating to the patient's known hematoma. 3. Left renal cyst. Electronically authenticated by: JANICE LUNA Date: 07/07/2023 12:59
--- NOTE | 2023-07-07 11:53 | XR_ITS ---
[address] [place] [id number] Patient Name: JANICE YING MRN: [id number] date: 1965 Sex: M Assigned Patient Location: RAD Current Patient Location: [facility] Accession/Order Number: [id number] Exam Date: 07/07/2023 11:59 Report Date: 07/07/2023 13:15 At the request of: BILLY COPE Procedure: XR abdomen 1V EXAM: XR abdomen 1V HISTORY: Kidney Stone COMPARISON: 04/27/2023 TECHNIQUE: AP view of the abdomen. FINDINGS: Nonobstructive bowel gas pattern is noted. Left renal calculi are unchanged. No calculi in the right renal region. The osseous structures are intact. XR/XR abdomen 1V IMPRESSION: Stable left nephrolithiasis. Electronically authenticated by: YRN UNDERWOOD Date: 07/07/2023 13:15
--- OUTSIDE RECORDS SUMMARY | 2023-07-07 12:02 | XMS_ITS | CCD ---
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 Phone BEDOCS, DR RANJEET Kuhn Attending Unavailable BEDOCS, DR RANJEET Kuhn Consulting Unavailable BEDOCS, DR RANJEET Kuhn Admitting Unavailable MISC, DR OLIVER Primary Care Unavailable ANTONIO KITCHEN Primary Care Physician Unavail able Antonio Kitchen DO Unavailable [phone] Antonio Kitchen DO Primary Care Provider Yann Alvarez Admitting Unavailable Pocmaribell, Yann Grant Attending Unavailable Yann Alvarez Referring Unavailable NONE, XXXX Referring Unavailable Matthew Dela Cruz Admitting Unavaila Matthew Geronimo Attending Unavaila ble NONE, XXXX Referring Unavailable MARTA VILLANUEVA L Attending Unavailable MARTA VILLANUEVA Admitting Unavailable PocYann reyna Attending Unavailable PocYann reyna Referring Unavailable PocYann reyna Admitting Unavailable Sean COPE Attending Unavailable Sean COPE Attending Unavailable Sean COPE Attending Unavailable Sean COPE Attending Unavailable ANTONIO KITCHEN Referring Unavailable Sean COPE Attending Unavailable Matthew Dela Cruz Admitting Unavaila Matthew Geronimo Consulting Unavaila Matthew Geronimo Attending Unavaila Matthew Geronimo Referring Unavaila Matthew Geronimo Consulting Unavaila Matthew Geronimo Consulting Unavaila ble Yann Alvarez Attending Unavailable Yann Alvarez Admitting Unavailable PocYann reyna Attending Unavailable Yann Alvarez Admitting Unavailable Sean COPE Consulting Unavailable Edward Castillo Attending Unavailable Danica Antonio Admitting Unavailable MD Sean COPE Consulting Unavailable Brad URBINA Consulting Unavailable COPE, Sean R Consulting Unavailable COPE, Sean R Consulting Unavailable COPE, Sean R Consulting Unavailable COPE, Sean R Consulting Unavailable COPE, Sean R Consulting Unavailable COPE, Sean R Consulting Unavailable COPE, Sean R Consulting Unavailable COPE, Sean R Consulting Unavailable COPE, Sean R Consulting Unavailable COPE, Sean R Consulting Unavailable COPE, Sean R Consulting Unavailable WENGERD, MATHEUS Attending Unavailable POCOS, YANN Grant Referring Unavailable FIDELINA, ANTONIO Grant Attending Unavailable FIDELINA, ANTONIO Grant Referring Unavailable GUNDLACHDEION Attending Unavailable POCOS, YANN Grant Referring Unavailable TESMOND, SOUMYA Sanchez Attending Unavailable FIDELINA, ANTONIO Grant Referring Unavailable VERONICA-JULIOCESAR, DORA Suarez Attending Unava ilable GUNDLACH, DEION Staley Attending Unavailable POCOS, YANN Grant Referring Unavailable POCOS, YANN Grant Attending Unavailable GUNDLACH, DEION Staley Attending Unavailable POCOS, YANN Grant Referring Unavailable WENGERDMATHEUS Attending Unavailable POCOS, YANN Grant Referring Unavailable GUNDLACHDEION Attending Unavailable POCOS, YANN Grant Referring Unavailable WENGERDMATHEUS Attending Unavailable POCOS, YANN Grant Referring Unavailable DAHM, CINDY Attending Unavailable POCOS, YANN Grant Referring Unavailable DAHM, CINDY Attending Unavailable WENGERD, MATHEUS Attending Unavailable POCOS, YANN Grant Referring Unavailable GUNDLACHDEION Attending Unavailable POCOS, YANN Grant Referring Unavailable WENGERDMATHEUS Attending Unavailable POCOS, YANN Grant Referring Unavailable WENGERDMATHEUS Attending Unavailable POCOS, YANN Grant Referring Unavailable DAHM, CINDY Attending Unavailable POCOS, YANN Grant Referring Unavailable WENGERDMATHEUS Attending Unavailable POCOS, YANN Grant Referring Unavailable WENGERDMATHEUS Attending Unavailable POCOS, YANN Grant Referring Unavailable POCOS, YANN Grant Attending Unavailable POCOS, YANN Grant Referring Unavailable GUNDLACHDEION Attending Unavailable POCOS, YANN Grant Referring Unavailable POCOS, YANN Grant Referring Unavailable POCOS, YANN Grant Attending Unavailable Allergies Allergy Classification Reported Allergen(s) Allergy Type Date of Onset Reaction(s) Facility (2 sources) HYDROcodone; Translations: [HYDROcodone] Drug Allergy [facility] Repository (7 sources) HYDROcodone; Translations: [hydrocodone] Drug Allergy [facility] Medications Current Medications Medication Drug Class(es) Dates Sig (Normalized) Sig (Original) acetaminophen 325 mg / HYDROcodone bitartrate 5 mg oral tablet (1 source) Opioid Agonist Start: 02-09-2023 [place] 325 mg-5 mg oral tablet See Instructions, for pain, 40 tab(s), Refill(s) 0, 1 - 2 po q4-6h prn pain Dx: M17.11, Z96.651 Duration: 7 days, [id number], 188, cm, 01/16/23 7:42:00 EDT, Height/Length Dosing, 97, kg, 01/16/23 7:42:00 EDT, Weight Dosing Start Date: 02/09/23 Status: Ordered acetaminophen 325 mg / oxyCODONE hydrochloride 7.5 mg oral tablet (3 sources) Opioid Agonist Start: 04-30-2023 Percocet 7.5/325 oral tablet 2 tab(s), Oral, q6hr for pain, 20 tab(s), Refill(s) 0, [facility]/pharmacy #[id number], 185, cm, 04/28/23 20:47:00 EST, Height/Length Dosing, 77.2, kg, 04/29/23 10:14:00 EST, Weight Dosing Start Date: 04/30/23 Status: Ordered amLODIPine 5 mg oral tablet (4 sources) Dihydropyridine Calcium Channel Castro Start: 05-01-2023 take 1 tablet by mouth twice daily amLODIPine 5 mg Tab 5 mg = 1 tab(s), Oral, BID, # 60 tab(s), Refills(s) 0, Pharmacy: [facility]/pharmacy #[id number], 185, cm, 04/28/23 20:47:00 EST, Height/Length [...] # 90 tab(s), Refills(s) 3, Pharmacy: [facility]/pharmacy #[id number], 186, cm, 10/20/20 11:38:00 EDT, Height/Length Dosing, 96, kg, 10/20/20 11:38:00 EDT, Weight Dosing Start Date: 01/26/21 Status: Ordered atorvastatin 80 mg oral tablet (11 sources) HMG-CoA Reductase Inhibitor Start: 09-07-2021 take 1 tablet by mouth in the morning atorvastatin (Lipitor) 80 MG tablet Take 80 mg by mouth in the morning. 0 06/06/2022 Active Blood Glucose Monitoring Suppl (ONE TOUCH ULTRA 2) w/Device kit (1 source) Start: 12-23-2021 Blood Glucose Monitoring Suppl (ONE TOUCH ULTRA 2) w/Device kit USE TO TEST SUGAR TWICE DAILY 0 12/23/2021 Active Fish Oils (10 sources) Start: 12-26-2019 take 500 mg by mouth once daily Fish Oil 500 mg, Oral, Daily, Refill(s) 0, Prophylaxis Start Date: 12/26/19 Status: Ordered Start: 12-26-2019 Fish Oil Oral, Refill(s) 0 Start Date: 12/26/19 Status: Ordered 1 ml ixekizumab 80 mg/ml auto-injector (4 sources) Interleukin-17A Antagonist Start: 10-20-2022 Taltz 80 MG/ML injection Inject 80 mg under the skin every 28 (twenty-eight) days. 0 10/20/2022 Active Start: 11-24-2021 LORazepam 0.5 mg oral tablet (3 sources) Benzodiazepine Start: 02-24-2020 take 1 tablet by mouth three times daily as needed for anxiety Ativan 0.5 mg Tab 0.5 mg = 1 tab(s), Oral, TID, PRN Anxiety, # 15 tab(s), Refills(s) 0, Pharmacy: [facility]/pharmacy #[id number], 185.4, cm, 02/21/20 20:48:00 EDT, Height/Length Dosing, 93.7, kg, 02/21/20 20:48:00 EDT, Weight Dosing Start Date: 02/24/20 Status: Ordered losartan potassium 100 mg oral tablet (9 sources) Angiotensin 2 Receptor Castro Start: 03-22-2023 take 1 tablet by mouth once daily losartan 100 mg Tab 100 mg = 1 tab(s), Oral, Daily, # 90 tab(s), Refills(s) 2, Pharmacy: [facility]/pharmacy #[id number], 188, cm, 01/16/23 7:42:00 EDT, Height/Length Dosing, 97, kg, 01/16/23 7:42:00 EDT, Weight Dosing Start Date: 03/22/23 Status: Ordered Start: 09-23-2022 take 1 tablet by mouth once da joan losartan 100 mg Tab 100 mg = 1 tab(s), Oral, Daily, High blood pressure Start Date: 01/16/23 Status: Ordered Start: 09-29-2021 take 1 tablet by mouth once da joan losartan 100 mg Tab 100 mg = 1 tab(s), Oral, Daily, # 90 tab(s), Refills(s) 0, Pharmacy: [facility], 186, cm, 10/20/20 11:38:00 EDT, [...] Ordered metFORMIN hydrochloride 500 mg oral tablet (14 sources) Biguanide Start: 12-26-2019 metformin 500 mg Tab Refills(s) 0 Start Date: 03/27/23 Status: Ordered Multivitamins and Minerals (10 sources) Start: 12-26-2019 take 1 tablet by [...] # 30 tab(s), Refills(s) 0, Pharmacy: [facility]/pharmacy #[id number], 185.4, cm, 02/21/20 20:48:00 EDT, Height/Length [...] # 30 tab(s), Refills(s) 0, Pharmacy: [facility]/pharmacy #[id number], 186, cm, 03/10/20 10:58:00 EDT, Height/Length Dosing, 93, kg, 03/10/20 10:58:00 EDT, Weight Dosing Start Date: 03/10/20 Status: Ordered PARoxetine hydrochloride 10 mg oral tablet (11 sources) Serotonin Reuptake Inhibitor Start: 10-13-2020 PARoxetine (Paxil) 10 MG tablet Indications: Anxiety and depression (CMS/HCC) TAKE 1 TABLET DAILY IN THE MORNING 90 tablet 3 04/18/2023 Active semaglutide 14 mg oral tablet (11 sources) Start: 03-16-2023 take 1 tablet by mouth once daily semaglutide (Rybelsus) 14 MG tablet Indications: Type 2 diabetes mellitus with other circulatory complications (CMS/HCC) TAKE 1 TABLET BY MOUTH EVERY DAY 90 tablet 3 03/16/2023 Active Start: 11-24-2021 take 1 tablet by allen th once daily Rybelsus 7 mg oral tablet 90 EA, TAKE 1 TAB AT LEAST 30MIN. BEFORE FIRST FOOD, DRINK, OR OTHER ORAL MEDS OF THE DAY, Refills(s) 0, Blood glucose Start Date: 11/24/21 Status: Ordered Taltz Autoinjector (10 sources) Start: 09-10-2020 Taltz Autoinje ctor 80 mg, SubCutaneous, q4wk, Refills(s) 0, Other (see comment) Start Date: 09/10/20 Status: Ordered Start: 09-10-2020 Taltz Autoinje ctor Refills(s) 0 Start Date: 09/10/20 Status: Ordered Vitamin B6 100 mg Tab (7 sources) Start: 01-16-2023 take 1 tablet by mouth once daily Vitamin B6 100 mg Tab 100 mg = 1 tab(s), Oral, Daily, Prophylaxis Start Date: 01/16/23 Status: Ordered Vitamin D (3 sources) Start: 10-13-2020 Vitamin D 50,0 00 International_Unit, Oral, Daily, Refills(s) 0 Start Date: 10/13/20 Status: Ordered Completed/Discontinued Medications Medication Drug Class(es) Dates Sig (Normalized) Sig (Original) latanoprost 0.05 mg/ml ophthalmic solution (8 sources) Prostaglandin Analog Start: 01-16-2023 latanoprost Opth 0.005% Rosalina 1 drop(s), OPTH, Once a day (at bedtime), Ocular congestion Start Date: 01/16/23 Status: Ordered take 1 drop(s) into the eye(s) at bedtime latanoprost (Xalatan) 0.005 % ophthalmic solution Administer 1 drop into both eyes at bedtime. 0 Active Problems Active Problems Problem Classification Problem Date Documented Da te Episodic/Chronic Acute and unspecified renal failure (1 source) Acute renal failure syndrome; Translations: [Acute kidney failure, unspecified] Onset: 04-29-2023 Episodic Acute myocardial infarction (14 sources) Acute ST segment elevation myocardial infarction; Translations: [Myocardial infarction] Onset: 12-26-2019 12-26-2019 Chronic Acute posthemorrhagic anemia (1 source) Acute posthemorrhagic anemia; Translations: [Acute posthemorrhagic anemia] Onset: 04-28-2023 Episodic Allergic reactions (1 source) Chronic radiodermatitis; Translations: [CHRONIC RADIODERMATITIS] Onset: 05-20-2021 Episodic Anxiety disorders (5 sources) Anxiety; Translations: [Anxiety disorder] Onset: 04-28-2023 03-20-2023 Chronic Asthma (1 source) Asthma without status asthmaticus; Translations: [Unspecified asthma, uncomplicated] Onset: 07-15-2020 12-30-2022 Chronic Calculus of urinary tract (8 sources) Kidney stone; Translations: [Calculus of kidney] Onset: 03-27-2023 Episodic Complications of surgical procedures or medical care (1 source) Postprocedural hematoma of a genitourinary system organ or structure following a genitourinary system procedure; Translations: [N99.840] Onset: 04-29-2023 Episodic Coronary atherosclerosis and other heart disease (13 sources) Coronary arteriosclerosis; Translations: [Coronary atherosclerosis] Onset: 12-23-2021 03-10-2020 Chronic Crushing injury or internal injury (3 sources) Contusion of kidney; Translations: [Minor contusion of unspecified kidney, initial encounter] Onset: 04-28-2023 Episodic Diabetes mellitus without complication (12 sources) Type 2 diabetes mellitus; Translations: [Type 2 diabetes mellitus without complication] Onset: 06-04-2019 12-26-2019 Chronic Disorders of lipid metabolism (1 source) Raised low density lipoprotein cholesterol; Translations: [Pure hypercholesterolemia, unspecified] Onset: 12-30-2022 12-30-2022 Chronic Essential hypertension (13 sources) Hypertensive disorder; Translations: [Essential hypertension] Onset: 11-01-2016 01-16-2023 Chronic Glaucoma (7 sources) Glaucoma 01-16-2023 Chronic Hyperplasia of prostate (8 sources) Benign prostatic hypertrophy without outflow obstruction; Translations: [Benign prostatic hyperplasia without lower urinary tract symptoms] Onset: 12-30-2022 Chronic Mood disorders (7 sources) Depressive disorder 01-16-2023 Chronic Nonspecific chest pain (8 sources) Chest pain; Translations: [Chest pain, unspecified] Onset: 04-28-2023 01-16-2023 Episodic Osteoarthritis (14 sources) Arthritis; Translations: [Osteoarthritis] 01-16-2023 Chronic Other aftercare (1 source) Encounter for follow-up examination after completed treatment for malignant neoplasm; Translations: [ENC F/U EX AFTR CMPL TX MALIG NEOPL] Onset: 05-20-2021 Episodic Other aftercare (3 sources) Long-term current use of aspirin; 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] Onset: 03-27-2023 Episodic Other aftercare (4 sources) Long-term current use of anticoagulant 03-20-2023 Episodic Other connective tissue disease (1 source) History of total knee arthroplasty; Translations: [Presence of right artificial knee joint] Onset: 02-17-2023 02-17-2023 Chronic Other connective tissue disease (1 source) Other bursal cyst, left hand; Translations: [OTHER BURSAL CYST LEFT HAND] Onset: 05-20-2021 Episodic Other diseases of kidney and ureters (1 source) Hematoma of kidney 06-12-2023 Chronic Other gastrointestinal disorders (1 source) Retroperitoneal hematoma; Translations: [Retroperitoneal hematoma] Onset: 04-28-2023 Episodic Other gastrointestinal disorders (1 source) Constipation, unspecified; Translations: [Constipation, unspecified] Onset: 04-29-2023 Episodic Other inflammatory condition of skin (4 sources) Psoriasis vulgaris; Translations: [PSORIASIS VULGARIS] Onset: 05-15-2021 Chronic Other inflammatory condition of skin (4 sources) Plaque psoriasis 03-20-2023 Chronic Other inflammatory condition of skin (5 sources) Psoriatic arthritis; Translations: [Arthropathic psoriasis, unspecified] Onset: 10-31-2016 03-20-2023 Chronic Other skin disorders (1 source) Other seborrheic keratosis; Translations: [OTHER SEBORRHEIC KERATOSIS] Onset: 05-20-2021 Episodic Skin and subcutaneous tissue infections (2 sources) Furuncle of left lower limb; Translations: [Furuncle of right lower limb] Onset: 05-20-2021 Episodic Spondylosis; intervertebral disc disorders; other back problems (1 source) Arthritis of lumbosacral spine; Translations: [Spondylosis without myelopathy or radiculopathy, lumbosacral region] Onset: 01-03-2023 01-03-2023 Chronic Unclassified (4 sources) Long-term current use of aspirin 03-27-2023 Past or Other Problems Problem Classification Problem Date Documented Da te Episodic/Chronic Diabetes mellitus without complication (10 sources) Diabetes mellitus without complication 12-26-2019 Melanomas of skin (5 sources) Personal history of malignant melanoma of skin; Translations: [History of malignant melanoma of the skin] Onset: 05-20-2021 03-20-2023 Episodic Other ear and sense organ disorders (1 source) Impacted cerumen in right ear; Translations: [Impacted cerumen, right ear] Onset: 12-02-2022 12-02-2022 Episodic Other non-traumatic joint disorders (1 source) Hip pain; Translations: [Pain in right hip] Onset: 01-03-2023 01-03-2023 Episodic Results Test Name Value Interpretation Reference Range Facility CBC w/ Auto Diffon 4 Basophil Absolute 0.0 E9/L Normal 0.0-0.2 [facility] Comment on above: Performed By: #### 1 [id number], [id number], [id number] ####[facility] [address] [place] [address] Basophils/100 WBC (Bld) 0.8 % Normal 0.0-2.0 [facility] Comment on above: Performed By: #### 1 [id number], [id number], [id number] ####[facility] [address] [place] [address] Eos Absolute 0.1 E9/L Normal 0.0-0.5 [facility] Comment on above: Performed By: #### 1 [id number], [id number], [id number] ####[facility] [address] [place] [address] Eosinophils/100 WBC (Bld) 1.3 % Normal 0.0-8.0 [facility] Comment on above: Performed By: #### 1 [id number], 7851244, [id number] ####[facility] [address] [place] [address] Erythrocyte distribution width (RBC) [Ratio] 14.0 % Normal 10.9-14.2 [facility] Comment on above: Performed By: #### 1 [id number], 3154549, 9242369 ####[address] [address] Hematocrit (Bld) [Volume fraction] 41.0 % Normal 37.7-49.0 [facility] Comment on above: Performed By: #### 1 [id number], 9427234, 3584471 ####[address] [address] Hemoglobin (Bld) [Mass/Vol] 13.9 g/dL Normal 13.5-17.5 [facility] Comment on above: Performed By: #### 1 [id number], 0288504, 0397561 ####[address] [address] Lymph Absolute 1.6 E9/L Normal 1.0-4.0 [facility] Comment on above: Performed By: #### 1 [id number], 3312496, 4492276 ####[address] [address] Lymphocytes/100 WBC (Bld) 29.2 % Normal 14.0-50.0 [facility] Comment on above: Performed By: #### 1 [id number], 9326136, 1761115 ####[address] [address] MCH (RBC) [Entitic mass] 27.5 pg Normal 27.0-34.0 [facility] Comment on above: Performed By: #### 1 [id number], 0084739, 6263588 ####[address] [address] MCHC (RBC) [Mass/Vol] 33.7 g/dL Normal 31.4-36.0 [facility] Comment on above: Performed By: #### 1 [id number], 3471918, 1271740 ####[address] [address] MCV (RBC) [Entitic vol] 81.6 fL Normal 80.0-100.0 [facility] Comment on above: Performed By: #### 1 [id number], 0064514, 8557348 ####[facility] [address] [place] [address] [place] Absolute 0.4 E9/L Normal 0.2-1.0 [facility] Comment on above: Performed By: #### 1 [id number], 3171209, 4512302 ####[address] [address] Monocytes/100 WBC (Bld) 6.7 % Normal 4.0-14.0 [facility] Comment on above: Performed By: #### 1 [id number], 6999280, 9455927 ####[address] [address] Neutro Absolute 3.4 E9/L Normal 2.0-7.5 [facility] Comment on above: Performed By: #### 1 7598835, 3676406, 3782963 ####[address] [address] Neutro Auto 62.0 % Normal 36.0-75.0 [facility] Comment on above: Performed By: #### 1 4556851, 8999716, 1727963 ####[address] [address] Platelet 254.0 E9/L Normal 150.0-500.0 [facility] Comment on above: Performed By: #### 1 [id number], 8313085, 1142778 ####[address] [place] [address] Platelet mean volume (Bld) [Entitic vol] 7.7 fL Normal 6.4-10.8 [facility] Comment on above: Performed By: #### 1 [id number], 6361875, 6463812 ####[address] [address] RBC 5.1 E12/L Normal 4.3-5.9 [facility] Comment on above: Performed By: #### 1 [id number], 0679104, 4371464 ####[facility] [address] [place] [address] WBC 5.5 E9/L Normal 4.0-11.0 [facility] Comment on above: Performed By: #### 1 [id number], 0454018, 8749461 ####[facility] [address] [place] [address] CRPon 07-05-2023 CRP [Mass/Vol] mg/L Normal <=1.9 [facility] Comment on above: Performed By: #### 1 2373631, 0926012, 7792358 ####[facility] [address] [place] [address] Consent for Treatmenton Consent for Treatment [id number] .[id number] Normal [facility] Physician Orderon 07-05-2023 Physician Order [id number]# 1.00TIFF Normal [facility] Sed Rate Automatedon 024 ESR (Bld) [Velocity] 10 mm/h Normal 0-19 [facility] Comment on above: Performed By: #### 1 [id number], 4515263, 3928111 ####[facility] [address] [place] [address] Ambulatory Visit Summaryon 0 06-12-2023 Ambulatory Visit Summary JANICE SMYHT :1965 Visit Date:06/12/2023 Ambulatory Visit Instructions Your Diagnosis Kidney stones Hematoma of right kidney BPH (benign prostatic hyperplasia) Aspirin long-term use Tests Performed Urnls Dip Stick Auto w/o Microscopy POC [id number] XR Abdomen 1 View -- Results Pending -- Please visit your patient portal for your results or contact your primary care physician. Your Care Team Attending Physician - PRISCA [...] Femur (1973). Discharge Vitals Heart Rate (Peripheral) 70 Blood Pressure 124/82 Height 185 cm Height 73 in Weight 86.9 kg Weight 191.18 lb BMI 25.39 What to do next Scheduled Follow-Up Appointments Monday 8:45 AM EDT With: PRISCA ACOSTA, Sean Stovall Where: [facility] Patient Educationon 06-12-19 24 Patient Education Urology Kidney Stones Kidney stones [...] these instructions at home: Medicines ? Take mgaf-bnh-gqjgejb and prescription medicines only as told by [...] provider. Document Revised: 01/17/2022 Document Reviewed: 01/17/2022 [employer] Patient Education ? 2022 EXPO. [facility] Provider Letteron 06-12-2023 Provider Letter June 12, 2023 JANICE SMYTH [address] [place] [id number] : 1965 To Whom It May Concern, Please excuse above patient from work. Date of Illness: From: 04/27/2023 To: 06/18/2023 May Return to Work On: 06/19/23 Restrictions: Patient may return to work without restrictions. Comments: N/A Sincerely, [facility] Dr. Sean Cope [facility] Urology Office/Clinic Noteon 06-12-2023 Urology Office/Clinic Note Chief Complaint 1 month F/U HPI Staff 57 yo male here for 1 month f/u w/ CBC. Previous Dx: kidney stones, BPH, aspirin long-term use, hematoma of R kidney. 05/12/23 - Hgb 10.2, Hct 31.4 05/17/23 - Hgb 10.7, Hct 33.6 Was recommended at prior OV to cont Acetaminophen 100mg tid as needed and ibuprofen 200mg at night for pain for hematoma. States this is working good for him No CT scan ordered due to radiation risk. No recent PSAs on [facility] (PCP checks PSA). Dysuria: _denies Incomplete bladder emptying: denies Hematuria: daily he sees blood Frequency: every couple hours Urgency: denies Nocturia: once nightly Stream: denies hesitation, normal stream Leaking: denies Post void dripping: yes Wearing pads/ Depends: denies Urge incontinence: denies Stress incontinence: denies Incontinence without Sensory Awareness: denies Abdominal pain: denies Flank pain: sometimes on right side, mild pain nothing he is concerned about Sexual complaints: denies History of Present Illness Tests reviewed: reviewed UA, CBC, CT scans, KUB I have reviewed the previous health record information and history for this patient from Dr. Cope. I have reviewed and verified the staff [...] HPI. Physical Exam Vitals & Measurements HR: 70(Peripheral) BP: 124/82 HT: 73 in HT: 185 cm WT: 86.9 kg WT: 191.18 lb BMI: 25.39 General Appearance: alert, no distress, well nourished, well developed male. Genitourinary: normal scrotum, normal testes, normal urethra, normal epididymis, normal vas deferens/spermatic cord. Flank Pain: none. Bladder: nonpalpable. Assessment/Plan 1. Kidney stones (N20.0: Calculus of kidney) Lumbar spine XR 01/03/23 [facility] - 2 R renal calcifications measuring up to 6mm. KUB 04/27/23 [facility] - 4mm stone in L and R kidney. S/p R ESWL 04/27/23. Due to PO hematoma, patient cannot EVER get ESWL done safely again. CT [place] w con [place] [facility] [place] measuring up to 5mm on R. No hydro. CT AP w con 04/30/24 [facility] - unchanged bilateral stones. No hydro. Discussed imaging results. Advised pt he still has bilateral renal stones present. Will need to obtain imaging to determine if stones are stable or increasing in size. -Increase fluid intake -6 month f/u w/ KUB 2. Hematoma of right kidney (S37.011A: Minor contusion of right kidney, initial encounter) S/p R ESWL 04/27/23. Developed a small PO hematoma from lithotripsy machine. Was recommended to take Catalina fusion 4-6 gummy chews per day to improve constipation. Also recommended to take Acetaminophen 1000mg tid, and add Ibuprofen 200mg at night for pain relief. CBC: 05/12/23 - Hgb 10.2, Hct 31.4 05/17/23 - Hgb 10.7, Hct 33.6 06/07/23 - Hgb 11.3, Hct 35.0 States he has had improved sxs. Has minimal abdominal pain. Reports has been passing some blood in his urine. UA today negative for blood and infection. Advised pt he is likely dehydrated. Recommended pt to increase fluid intake to ten to twelve 16oz bottles a day; preferably water, clear pop, and sugar free lemonade. States he feels he is ready to return to work. -Increase fluid intake 3. BPH (benign prostatic hyperplasia) (N40.0: Benign prostatic hyperplasia without lower urinary tract symptoms) S/p Cysto/UD 06/08/17 by JERAMIE. S/p Green light laser of prostate 07/12/17 by JERAMIE. S/p Cysto 07/26/18 by DLS. Not currently taking any BPH meds. PSA (checked by PCP): 03/18/17 - 3.15 12/06/19 - 0.927 03/26/22 - 0.58 4. 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 Follow-up With When Contact Information PRISCA ACOSTA, Sean Stovall, URL [facility] [address] [place] [address] [phone] Additional Instructions: KUB in 6 mos Patient Education Kidney Stones, Psvd-hz-Hrfq I, Carol Padilla, personally scribed for Dr. Cope on 06/12/2023 09:47:11. . Documentation recorded by the scribeCarol, accurately reflects the services(s) I performed and decisions made by me. Authenticated by Dr. Cope on 06/12/2023 09:49:00. Problem List/Past Medical History Ongoing Anxiety Aspirin long-term use BPH (benign prostatic hyperplasia) Coronary artery disease Hematoma of right kidney Hypertensive disorder Kidney stones Long-term current use of ant (more content not included)... Normal [facility] Comment on above: Result Comment: Elec tronically Signed By: Sean COPE MD\.br\Date and Time Signed: 06/12/23 09:49 EST\.br\Electronically Co-Signed By: Carol Padilla\.br\Date and Time Co-Signed: 06/12/23 09:47 EST Lab Reportson 06-08-2023 Lab Reports [id number]#1 .00TIFF Normal [facility] Lab Reportson 05-23-2023 Lab Reports [id number]#1 .00TIFF Normal [facility] Lab Reportson 05-15-2023 Lab Reports [id number]#1 .00TIFF [facility] Formson 05-10-2023 Forms [id number]#1 .00TIFF [facility] Insurance Correspondence Off iceon 05-10-2023 Insurance Correspondence Office [id number] #1.00TIFF [facility] Ambulatory Visit Summaryon 1 07-09-2022 Ambulatory Visit Summary JANICE SMYTH :1965 Visit Date:05/08/2023 Ambulatory Visit Instructions Your Diagnosis Kidney stones BPH (benign prostatic hyperplasia) Aspirin long-term use Hematoma of right kidney Tests Performed Urnls Dip Stick Auto w/o Microscopy POC [address] Your Care Team Attending Physician - PRISCA [...] Follow-Up Appointments Monday 9:15 AM EST With: PRSICA ACOSTA, Sean Stovall Where: [facility] Patient Educationon 05-08-20 Patient Education Urology Kidney [...] these instructions at home: Medicines ? Take nwed-too-xwvvxxo and prescription medicines only as told by [...] provider. Document Revised: 01/17/2022 Document Reviewed: 01/17/2022 [email or web address] Patient Education ? 2022 EXPO. [facility] Progress Note-Physicianon Progress Note-Physician Assessment/Plan PLAN: [...] artery disease (I25.10: Atherosclerotic heart disease of poarch coronary artery without angina pectoris) s/p stent in 2019 CT Chest showed extensive calcifications of the LAD Follows with [facility] 8. HTN (hypertension) (I10: Essential (primary) hypertension) Holding Losartan due to LUIS MIGUEL. Amlodipine started today improved. 9. Kidney stones (N20.0: Calculus of kidney) s/p lithotripsy by Dr Cope on 04/27 at [facility] 10. Type 2 diabetes mellitus (E11.9: [...] 05:53:00) Lymph Auto: 26.8 % (04/30/23 05:53:00) [place] Auto: 8.9 % (04/30/23 05:53:00) Eos Auto: 2.3 % (04/30/23 05:53:00) Basophil Auto: 0.4 % (04/30/23 05:53:00) Neutro Absolute: 3.1 E9/L (04/30/23 05:53:00) Lymph Absolute: 1.3 E9/L (04/30/23 05:53:00) [place] Absolute: 0.4 E9/L (04/30/23 05:53:00) Eos Absolute: 0.1 E9/L (04/30/23 05:53:00) Basophil Absolute: 0 E9/L (04/30/23 05:53:00) Glucose (more content not included)... Normal [facility] Comment on above: Result Comment: Elec tronically [...] ESWL 04/27/23 DX: Kidney Stone & BPH [facility] 04/28/23 CC: Chest pain & SOB [...] - 0.58 3. Aspirin long-term use (Z79.82: prison (current) use of aspirin) Aspirin therapy 4. [...] after hematoma heals, pt will have no termination clerk effects on kidney. Patient does not feel [...] 1 month Follow-up With When Contact Information Sean COPE MD, URL In 1 month [facility] [address], [place] [phone]- [phone] Addition (more content not included)... [facility] Comment on above: Result Comment: Elec tronically Signed By: Sean COPE MD\.br\Date and Time Signed: 05/08/23 12:52 EST\.br\Electronically Co-Signed By: Oliva Luna\.br\Date and Time Co-Signed: 05/08/23 12:48 EST Blood Bank Slipon 05-05-2023 Blood Bank Slip [id number]#1 .00TIFF [facility] Blood Bank Slip [id number]#1 .00TIFF [facility] Consent for Blood Transfusio non 05-05-2023 Consent for Blood Transfusion [id number]#1 .00TIFF [facility] Discharge Instructionson Discharge Instructions [id number]#1 .00TIFF [facility] Lab Reportson 05-05-2023 Lab Reports [id number]#1 .00TIFF [facility] RAD - MISCon 05-05-2023 RAD - MISC [id number]#1 .00TIFF [facility] General Message Officeon General Message Office --- --- --- --- - -- --- --- --- --- From: Irene DillardInbox To: JANICE SMYTH Sent: 05/02/23 02:30:58 AM EST Subject: Discharge Summary Ready to View A summary regarding your recent visit is available in the Documents section of your health record. Normal [facility] OARRS Reporton 05-02-2023 OARRS Report [id number]#1 .00TIFF Normal [facility] CHEMISTRYOrdered By: Lab ROP User on 05-01-2023 Glucose [Mass/Vol] 280 mg/dL High 55 - 99 mg/dL [facility] POC Subsection Comment on above: Result Comment: Christine PHILLIPS POC Username JOHANA SPAIN Invalid Interpretation Code [facility] POC Subsection Sodium [Moles/Vol] 934292570278 mmol/L Invalid Interpretation Code [facility] POC Subsection Sodium [Moles/Vol] 116563168 mmol/L Invalid Interpretation Code [facility] POC Subsection Glucose [Mass/Vol] 160 mg/dL High 55 - 99 mg/dL [facility] POC Subsection Comment on above: Result Comment: Christine PHILLIPS POC Username JOHANA SPAIN Invalid Interpretation Code [facility] POC Subsection Sodium [Moles/Vol] 867158926544 mmol/L Invalid Interpretation Code [facility] POC Subsection Sodium [Moles/Vol] 609895357 mmol/L Invalid Interpretation Code [facility] POC Subsection Capillary Glucose POCon Glucose [Mass/Vol] 280 mg/dL High 55-99 [facility] Comment on above: Result Comment: Christine PHILLIPS Performed By: #### 2 [id number] #### [facility] Laboratory [address] [place] [address] Glucose [Mass/Vol] 160 mg/dL High 55-99 [facility] Comment on above: Result Comment: Christine PHILLIPS Performed By: #### 2 [id number] ####[facility] [address] [place] [address] Discharge Note-Nursingon Discharge Note-Nursing JANICE SMYTH :1965 Visit Date:04/28/2023 Inpatient Discharge Instructions Your Care Team Admitting Physician - Paco ACOSTA, Danica Consulting Physician - PRISCA ACOSTA, Sean Stovall Reason for Your Visit CP and abdominal [...] Results None [facility] [place] [facility] [place] , Other: [facility] Discharge Instructions [...] ACOSTA, Sean Stovall Where: [facility] Normal [facility] HEMATOLOGYOrdered By: John Dumont on 05-01-2023 Hematocrit (Bld) [Volume fraction] 28.1 % Low 37.7 - 49.0 % [facility] HemeAutoSS Hemoglobin (Bld) [Mass/Vol] 9.9 g/dL Low 13.5 - 17.5 gm/dL [facility] HemeAutoSS HEMATOLOGYOrdered By: Jack Livingston on 05-01-2023 Hematocrit (Bld) [Volume fraction] 26.6 % Low 37.7 - 49.0 % [facility] HemeAutoSS Hemoglobin (Bld) [Mass/Vol] 9.4 g/dL Low 13.5 - 17.5 gm/dL [facility] HemeAutoSS Hct & Hgbon 05-01-2023 Hematocrit (Bld) [Volume fraction] 28.1 % Low 37.7-49.0 [facility] Comment on above: Performed By: #### 1 [id number] #### [facility] [address] [place] [address] Hemoglobin (Bld) [Mass/Vol] 9.9 g/dL Low 13.5-17.5 [facility] Comment on above: Performed By: #### 1 [id number] #### [facility] [address] [place] [address] Hematocrit (Bld) [Volume fraction] 26.6 % Low 37.7-49.0 [facility] Comment on above: Performed By: #### 7 [id number] #### [facility] [address] [place] [address] Hemoglobin (Bld) [Mass/Vol] 9.4 g/dL Low 13.5-17.5 [facility] Comment on above: Performed By: #### 7 [id number] #### [facility] [address] [place] [address] Hematocrit (Bld) [Volume fraction] 26.3 % Low 37.7-49.0 [facility] Comment on above: Performed By: #### 1 [id number] #### [facility] [address] [place] [address] Hemoglobin (Bld) [Mass/Vol] 9.2 g/dL Low 13.5-17.5 [facility] Comment on above: Performed By: #### 1 [id number] #### [facility] [address] [place] [address] Inpatient Clinical Summaryon 05-01-2023 Inpatient Clinical Summary [address] [address] Clinical Summary Person Information: Name: JANICE SMYTH Age: 57 Years : 1965 Sex: Male PCP: ANTONIO KITCHEN DO Marital Status: Race: White Ethnicity: Non- or Language: French Visit Id: Visit Reason: Dizziness; Shortness of breath; Chest pain; CHEST PAIN Speciality: Acuity: Enc Type: Inpatient Med Service: Medical Arrival: 04/28/2023 20:35:17 Discharge: Dispo Type: Admitted as IP to this Hosp Address: [facility] [address] [place] [address] [id number] Provider Notes: Diagnosis: 1:Chest pain; 2:Perinephric hematoma; [...] Follow up: With: Address: When: Sean COPE [facility], [address], [place] [address] [facility] (1) 05/08/2023 11:00 AM With: Address: When: ANTONIO KITCHEN [address] [facility] [address] [place], [place] [id number] Type Location Start [facility] URO Office Visit [facility] Tomi 05/08/2023 11:00 AM 05/08/2023 11:15 AM Confirmed Patient Education Information: Retroperitoneal Bleeding Normal [facility] Inpatient Patient Summaryon 05-01-2023 Inpatient Patient [...] Diagnostic Test Results None [facility] [place] [facility] [place] , Other: [facility] Discharge Instructions take [...] ACOSTA, Sean Stovall Where: [facility] Inpatient Patient Summary [place] [address] Patient Discharge Instructions PERSON INFORMATION Name: JANICE [...] COPE [facility], [address], [place] [address] Business (1) 05/08/2023 11:00 AM With: Address: When: ANTONIO KITCHEN [address] [place], [place] [phone] In the event that this physician does not participate in your insurance network, please consult with your insurance company to find a nearby participating provider. Type Location Start [facility] URO Office Visit [facility] Tom[place] 05/08/2023 11:00 AM 05/08/2023 11:15 AM Confirmed Comment: DEONNA Beasley JAMES P, have received the attached patient education materials/instruction s and have verbalized understanding: Patient Signature Date Clinican/Nurse Signature Date HERE ARE THE MEDICATION CHANGES THAT OCCURRED DURING YOUR HOSPITAL STAY New Medications [id number], [address] [place], [place] [id number], [phone] acetaminophen-oxycodo ne (Percocet 7.5/325 oral tablet) 2 [...] 0. amlodipine (am (more content not included)... 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 Pt is aware of plan to DC home later today. PT is independent from home , will transport at DC, declines any concerns or DC needs. PCP verified and insurance information provided and white board updated. Contact information provided and white board updated. [facility] Comment on above: Result Comment: Elec tronically Signed By: Porfirio COY, Elda\.br\Date and Time Signed: 05/01/23 12:03 EST Monitor Recordon 05-01-2023 Monitor Record [id number]# 1.00TIFF [facility] Monitor Record [id number]# 1.00TIFF [facility] Monitor Record [id number]# 1.00TIFF [facility] Monitor Record [id number]# 1.00TIFF [facility] Provider Letteron 05-01-2023 Provider Letter May 01, 2023 JANICE SMYTH [address] [place] [phone] : 1965 To Whom It May Concern, [...] Sean Cope M.D., F.A.C.S. [facility] [address] [place], [place] [address]ashwini [place], [place] [address] Faxed: Normal [facility] Auto Diffon 04-30-2023 Basophils/100 WBC (Bld) 0.4 % Normal 0.0-2.0 [facility] Comment on above: Order Comment: Order Added by Discern Expert. Performed By: #### 2 [id number] #### [facility] [address] [place] [address] Basophils/Leukocytes Auto (Bld) [Pure # fraction] 0.0 E9/L Normal 0.0-0.2 [facility] Comment on above: Order Comment: Order Added by Discern Expert. Performed By: #### 2 [id number] #### [facility] [address] [place] [address] Eosinophils/100 WBC (Bld) 2.3 % Normal 0.0-8.0 [facility] Comment on above: Order Comment: Order Added by Discern Expert. Performed By: #### 2 [id number] #### [facility] [address] [place] [address] Eosinophils/Leukocytes Auto (Bld) [Pure # fraction] 0.1 E9/L Normal 0.0-0.5 [facility] Comment on above: Order Comment: Order Added by Discern Expert. Performed By: #### 2 [id number] #### [facility] [address] [place] [address] Lymphocytes/100 WBC (Bld) 26.8 % Normal 14.0-50.0 [facility] Comment on above: Order Comment: Order Added by Discern Expert. Performed By: #### 2 [id number] #### [facility] [address] [place] [address] Lymphocytes/Leukocytes Auto (Bld) [Pure # fraction] 1.3 E9/L Normal 1.0-4.0 [facility] Comment on above: Order Comment: Order Added by Discern Expert. Performed By: #### 2 [id number] #### [facility] [address] [place] [address] Monocytes/100 WBC (Bld) 8.9 % Normal 4.0-14.0 [facility] Comment on above: Order Comment: Order Added by Discern Expert. Performed By: #### 2 [id number] #### [facility] [address] [place] [address] Monocytes/Leukocytes Auto (Bld) [Pure # fraction] 0.4 E9/L Normal 0.2-1.0 [facility] Comment on above: Order Comment: Order Added by Discern Expert. Performed By: #### 2 [id number] #### [facility] [address] [place] [address] Neutrophils/100 WBC (Bld) 61.6 % Normal 36.0-75.0 [facility] Comment on above: Order Comment: Order Added by Discern Expert. Performed By: #### 2 [id number] #### [facility] [address] [place] [address] Neutrophils/Leukocytes Auto (Bld) [Pure # fraction] 3.1 E9/L Normal 2.0-7.5 [facility] Comment on above: Order Comment: Order Added by Discern Expert. Performed By: #### 2 [id number] #### [facility] [address] [place] [address] BMPon 04-30-2023 Anion gap [Moles/Vol] 8 mmol/L Normal 6-16 [facility] Comment on above: Performed By: #### 2 [id number] #### [facility] [address] [place] [address] Calcium [Mass/Vol] 8.8 mg/dL Low 8.9-11.1 [facility] Comment on above: Performed By: #### 2 [id number] #### [facility] [address] [place] [address] Chloride [Moles/Vol] 105 mmol/L Normal 101-111 [facility] Comment on above: Performed By: #### 2 [id number] #### [facility] [address] [place] [address] CO2 [Moles/Vol] 31 mmol/L Normal 21-31 [facility] Comment on above: Performed By: #### 2 [id number] #### [facility] [address] [place] [address] Creatinine [Mass/Vol] 1.0 mg/dL Normal 0.5-1.3 [facility] Comment on above: Performed By: #### 2 [id number] #### [facility] [address] [place] [address] Glucose [Mass/Vol] 172 mg/dL Normal 55-199 [facility] Comment on above: Result Comment: If t his glucose result represents a fasting glucose, interpretation should refer to the following reference range: 55-99 mg/dL Performed By: #### 2 [id number] #### [facility] [address] [place] [address] Potassium [Moles/Vol] 3.9 mmol/L Normal 3.5-5.3 [facility] Comment on above: Performed By: #### 2 [id number] #### [facility] [address] [place] [address] Sodium [Moles/Vol] 140 mmol/L Normal 135-145 [facility] Comment on above: Performed By: #### 2 [id number] #### [facility] [address] [place] [address] Urea nitrogen [Mass/Vol] 14 mg/dL Normal 5-21 [facility] Comment on above: Performed By: #### 2 [id number] #### [facility] [address] [place] [address] Urea nitrogen/Creatinine [Mass ratio] 14 No Units Normal 10-20 [facility] Comment on above: Performed By: #### 2 [id number] #### [facility] [address] [place] [address] CBC w/ Auto Diffon 3 Erythrocyte distribution width (RBC) [Ratio] 13.7 % Normal 10.9-14.2 [facility] Comment on above: Performed By: #### 2 [id number] #### [facility] [address] [place] [address] Hematocrit (Bld) [Volume fraction] 27.2 % Low 37.7-49.0 [facility] Comment on above: Performed By: #### 2 [id number] #### [facility] [address] [place] [address] Hemoglobin (Bld) [Mass/Vol] 9.4 g/dL Low 13.5-17.5 [facility] Comment on above: Performed By: #### 2 [id number] #### [facility] [address] [place] [address] MCH (RBC) [Entitic mass] 28.5 pg Normal 27.0-34.0 [facility] Comment on above: Performed By: #### 2 [id number] #### [facility] [address] [place] [address] MCHC (RBC) [Mass/Vol] 34.5 g/dL Normal 31.4-36.0 [facility] Comment on above: Performed By: #### 2 [id number] #### [facility] [address] [place] [address] MCV (RBC) [Entitic vol] 82.5 fL Normal 80.0-100.0 [facility] Comment on above: Performed By: #### 2 [id number] #### [facility] [address] [place] [address] Platelet mean volume (Bld) [Entitic vol] 8.1 fL Normal 6.4-10.8 [facility] Comment on above: Performed By: #### 2 [id number] #### [facility] [address] [place] [address] Platelets (Bld) [#/Vol] 156.0 E9/L Normal 150.0-500.0 [facility] Comment on above: Performed By: #### 2 [id number] #### [facility] [address] [place] [address] RBC (Bld) [#/Vol] 3.3 E12/L Low 4.3-5.9 [facility] Comment on above: Performed By: #### 2 [id number] #### [facility] [address] [place] [address] WBC corrected for nucl RBC Auto (Bld) [#/Vol] 5.0 E9/L Normal 4.0-11.0 [facility] Comment on above: Performed By: #### 2 [id number] #### [facility] [address] [place] [address] CHEMISTRYOrdered By: Lab ROP User on 04-30-2023 Glucose [Mass/Vol] 250 mg/dL High 55 - 99 mg/dL [facility] POC Subsection Comment on above: Result Comment: Christine godwin RN/ POC Username GILSON SARMIENTO Invalid Interpretation Code [facility] POC Subsection Sodium [Moles/Vol] 829702345112 mmol/L Invalid Interpretation Code [facility] POC Subsection Sodium [Moles/Vol] 787339875 mmol/L Invalid Interpretation Code [facility] POC Subsection CHEMISTRYOrdered By: SYSTEM SYSTEM on 04-30-2023 Anion gap [Moles/Vol] 8 mmol/L Normal 6 - 16 mEq/L F [facility] Remisol Calcium [Mass/Vol] 8.8 mg/dL Low 8.9 - 11. 1 mg/dL [facility] Remisol Chloride [Moles/Vol] 105 mmol/L Normal 101 - 1 11 mmol/L [facility] Remisol CO2 [Moles/Vol] 31 mmol/L Normal 21 - 31 mmol/L [facility] Remisol Creatinine [Mass/Vol] 1.0 mg/dL Normal 0.5 - 1.3 mg/dL [facility] Remisol GFR/1.73 sq M.predicted among non-blacks MDRD (S/P/Bld) [Vol rate/Area] 87 mL/min/1.73 m2 Normal >=59mL/min/1 .73 m2 [facility] Chem S Comment on above: Interpretive Data: C hronic kidney disease could be indicated at eGFR's of less than 60 mL/min/1.73m2. Kidney failure is indicated at less than 15 mL/min/1.73m2. Glucose [Mass/Vol] 172 mg/dL Normal 55 - 199 mg/dL [facility] Remisol Comment on above: Interpretive Data: I f this glucose result represents a fasting glucose, interpretation should refer to the following reference range: 55-99 mg/dL Potassium [Moles/Vol] 3.9 mmol/L Normal 3.5 - 5.3 mmol/L [facility] Remisol Sodium [Moles/Vol] 140 mmol/L Normal 135 - 145 mmol/L [facility] [facility] Urea nitrogen [Mass/Vol] 14 mg/dL Normal 5 - 21 mg/dL [facility] [place] Urea nitrogen/Creatinine [Mass ratio] 14 mg/mg Normal 10 - 20 [facility] Abdomen/Pelvis w/ Contras ton 04-30-2023 [...] Oral contrast amount in ml's: 0 Normal [facility] Capillary Glucose POCon 12-0 Glucose [Mass/Vol] 250 mg/dL High 55-99 [facility] Comment on above: Result Comment: Christine PHILLIPS Performed By: #### 2 [id number] ####[facility] [address] [place] [address] Glucose [Mass/Vol] 191 mg/dL High 55-99 [facility] Comment on above: Result Comment: Christine PHILLIPS Performed By: #### 2 [id number] ####[facility] [address] [place] [address] Glucose [Mass/Vol] 196 mg/dL High 55-99 [facility] Comment on above: Result Comment: Christine PHILLIPS Performed By: #### 1 [id number], [id number], 4841877, [id number] #### [facility] [address] [place] [address] Glucose [Mass/Vol] 150 mg/dL High 55-99 [facility] Comment on above: Result Comment: Christine PHILLIPS Performed By: #### 1 [id number], [id number], 0927447, [id number] #### [facility] [address] [place] [address] Glucose [Mass/Vol] 154 mg/dL High 55-99 [facility] Comment on above: Result Comment: Lucina edison Meter Performed By: #### 1 [id number], [id number], 9970623, 66638301 #### [facility] [address] [place] [address] Glucose [Mass/Vol] 211 mg/dL High 55-99 [facility] Comment on above: Result Comment: Christine godwin RN/MD Performed By: #### 1 [id number], 14532841, 6147114, [id number] #### [facility] [address] [place] [address] HEMATOLOGYOrdered By: Jack Livingston on 04-30-2023 Hematocrit (Bld) [Volume fraction] 26.3 % Low 37.7 - 49.0 % [facility] HemeAutoSS Hemoglobin (Bld) [Mass/Vol] 9.2 g/dL Low [...] 3.1 E9/L Normal 2.0 - 7.5 E9/L [facility] HEMATOLOGYOrdered By: Christa Calhoun on 04-30-2023 Erythrocyte distribution width (RBC) [Ratio] 13.7 % Normal 10.9 - 14.2 % [facility] MCH (RBC) [Entitic mass] 28.5 pg Normal 27.0 - 34.0 pg [facility] MCHC (RBC) [Mass/Vol] 34.5 g/dL Normal 31.4 - 36.0 gm/dL [facility] [facility] MCV (RBC) [Entitic vol] 82.5 fL Normal 80.0 - 100.0 fL [facility] Platelet mean volume (Bld) [Entitic vol] 8.1 fL Normal 6.4 - 10.8 fL [facility] Platelets (Bld) [#/Vol] 156.0 E9/L Normal 150.0 - 500.0 E9/L [facility] RBC (Bld) [#/Vol] 3.3 E12/L Low 4.3 - 5.9 E12/L [facility] WBC corrected for nucl RBC Auto (Bld) [#/Vol] 5.0 E9/L Normal 4.0 - 11.0 E9/L [facility] Hct & Hgbon 04-30-2023 Hematocrit (Bld) [Volume fraction] 30.1 % Low 37.7-49.0 [facility] Comment on above: Performed By: #### 1 [id number], [id number], 7911605, [id number] #### [facility] [address] [place] [address] Hemoglobin (Bld) [Mass/Vol] 10.4 g/dL Low 13.5-17.5 [facility] Comment on above: Performed By: #### 1 [id number], 17824100, 3768340, 80397963 #### [facility] [address] [place] [address] Hematocrit (Bld) [Volume fraction] 30.2 % Low 37.7-49.0 [facility] Comment on above: Performed By: #### 1 [id number], 22472010, 4823907, 25436471 #### [facility] [address] [place] [address] Hemoglobin (Bld) [Mass/Vol] 10.4 g/dL Low 13.5-17.5 [facility] Comment on above: Performed By: #### 1 6461935, 39789742, 7988759, 97215931 #### [facility] [address] [place] [address] Hematocrit (Bld) [Volume fraction] 26.5 % Low 37.7-49.0 [facility] Comment on above: Performed By: #### 2 [id number] #### [facility] [address] [place] [address] Hemoglobin (Bld) [Mass/Vol] 9.3 g/dL Low 13.5-17.5 [facility] Comment on above: Performed By: #### 2 [id number] #### [facility] [address] [place] [address] Interdisciplinary Note - Mauricio e Manageron 04-30-2023 Interdisciplinary Note - Filer Helper CRM to room to discuss DC Planning. Patient is awake, alert and oriented. Patient is from home with his spouse, she will transport at [place]. Patient verified PCP, home DME and insurance. Patient on 04/27 had a Right ESWL came back in 04/28 with a retroperitoneal Hematoma. Patient got blood transfusion on 04/29. Patient is assigned to [facility] , see notes. Patient has urology consult. Patient denied any DC need from CRM for HH, DME and PM. Patient was provided CRM contact, white board updated. Anticipated DC TBD. CRM following Normal [facility] Comment on above: Result Comment: Elec tronically Signed By: Sarah Choi\.br\Date and Time Signed: 04/30/23 13:30 EST Monitor Recordon 04-30-2023 Monitor Record [id number]# 1.00TIFF Normal [facility] Monitor Record [id number]# 1.00TIFF Normal [facility] Monitor Record [id number]# 1.00TIFF Normal [facility] Progress Note-Physicianon Progress Note-Physician Patient: JANICE [...] Type 2 diabetes mellitus / SNOMED CT 808291147 / Confirmed Coronary artery disease / SNOMED CT 61957268 / Confirmed Anxiety / SNOMED CT 97794359 / Confirmed Hypertensive disorder / SNOMED CT 3721467419 / Confirmed Long-term current use of anticoagulant / SNOMED CT 8609560643 / Confirmed Personal history of malignant melanoma of skin / SNOMED CT 0370742707 / Confirmed Plaque psoriasis / SNOMED CT 761961965 / Confirmed Psoriatic arthritis / SNOMED CT 836063760 / Confirmed ST elevation myocardial infarction involving left anterior descending coronary artery / SNOMED CT 11286257 / Confirmed Kidney stones / SNOMED CT 843194418 / Confirmed BPH (benign prostatic hyperplasia) / SNOMED CT 449159677 / Confirmed Aspirin long-term use / SNOMED CT 4133055094 / Confirmed Degenerative joint disease / SNOMED CT 0569231211 / Confirmed Arthritis / SNOMED CT 5012628 / Confirmed Glaucoma / SNOMED CT 54064406 / Confirmed Depression / SNOMED CT 60475743 / Confirmed Intermittent chest pain / SNOMED CT 11899160 / Confirmed High blood pressure / SNOMED CT 1723197610 / Confirmed Histories Past Medical History: Resolved STEMI - ST elevation myocardial infarction (7282608103): Onset on 12/26/2019 at 54 years. Resolved. Diabetes type (0903456783): Resolved. Family History: Diabetes mellitus type 1 Father Prostate cancer Father Procedure history: Total RIGHTknee arthroplasty (9888675786) on 02/07/2023 at 57 Years. Cardiac catheterisation (549276590) on 02/24/2020 at 54 Years. PCI - Percutaneous coronary intervention ([id number]) on 12/26/2019 at 54 Years. Coronary artery stent ([id number]) on 12/26/2019 at 54 Years. 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 Cystoscopy (8268659831) on 07/26/2018 at 52 Years. Radiofrequency ablation SI joint (7510197744) on 09/22/2017 at 51 Years. Laser of prostate w/ green light pvp (421271088) on 07/12/2017 at 51 Years. Cystourethroscopy with dilation of urethral stricture (922745490) on 06/08/2017 at 51 Years. 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 Comments: 12/26/2019 9:24 Lesvia Robbins RN rotater cuff Fracture of hand with metal pins (73245589) in 2003 at 38 Years. Tonsillectomy (780455987) in 2001 at 36 Years. ACL - Anterior cruciate ligament deficiency (427949953) in 1978 at 13 Years. Femur (501353518) in 1973 at 8 Years. Comments: 12/26/2019 9:22 Lesvia Robbins RN tumor removed femur Social History Social & Psychosocial Habits Alcohol 04/29/2023 Risk Assessment: Low Risk 04/29/2023 Use: Current Type: Liquor Frequency: Daily Comment: 2-3 drinks/day - 01/16/2023 07:41 - Jason COY, Brittaney Stovall Substance Abuse 04/29/2023 Risk Assessment: Denies Substance Abuse Tobacco 04/29/2023 Risk Assessment: Denies Tobacco Use 04/29/2023 Tobacco Use: Former smoker, quit more Smokeless tobacco use: Never Type: Cigarettes Concerns about tobacco use in household: No Smoking Cessation Yes Comment: quit 29 yrs ago-smoked 1-1.5ppd - 02/21/2020 14:45 - [place] COY, Kimberly Selby Review / Management Results review: Lab results 04/30/2023 11:07 EST Glucose Cap 196 mg/dL HI POC Device SN [id number] POC User ID [id number] POC Username POC Username 04/30/2023 11:04 EST HGB 10.4 gm/dL LOW Hct 30.2 % LOW 04/30/2023 7:56 EST Glucose Cap 150 mg/dL HI POC Device SN [id number] POC User ID [id number] POC Username POC Username 04/30/2023 6:25 EST Glucose Cap 154 mg/dL HI POC Device SN [id number] POC User ID [id number] POC Username RD CRUMP 04/30/2023 5:53 EST WBC 5.0 E9/L RBC 3.3 E12/L LOW HGB 9.3 gm/dL LOW HGB 9.4 gm/dL LOW Hct 26.5 % LOW Hct 27.2 % LOW MCV 82.5 fL MCH 28.5 pg MCHC 34.5 gm/dL RDW 13.7 % Platelet 156.0 E9/L MPV 8.1 (more content not included)... Normal [facility] Comment on above: Result Comment: Elec tronically Signed By: PRISCA ACOSTA, Sean Nick\Date and Time Signed: 04/30/23 14:56 EST eGFRon 04-30-2023 GFR/1.73 sq M.predicted among non-blacks MDRD (S/P/Bld) [Vol rate/Area] 87 mL/min/1.73 m2 Normal >=59 [facility] Comment on above: Order Comment: Order added by Discern Expert. Result Comment: Tape Controlled Machine Stitcher juliana kidney disease could be indicated at eGFR's of less than 60 mL/min/1.73m2. Kidney failure is indicated at less than 15 mL/min/1.73m2. Performed By: #### 2 [id number] #### [facility] [address] [place] [address] ABO/Rhon 04-29-2023 ABO/Rh Positive Invalid Interpretation Code [facility] Comment on above: Performed By: #### 1 [id number], 97951335, 0338675, [id number] #### [facility] [address] [place] [address] ABO/Rh History Checkon 04-29 ABO/Rh History Check Verified Hx Blood Type Normal [facility] Comment on above: Performed By: #### 1 [id number], 85638111, 3364197, 93785932 #### [facility] [address] [place] [address] ABSCon 04-29-2023 ABSC Gel Interp Negative Normal [facility] Comment on above: Performed By: #### 1 7937932, 10136844, 3933802, 14424566 #### [facility] [address] [place] [address] Auto Diffon 04-29-2023 Basophils/100 WBC (Bld) 0.5 % Normal 0.0-2.0 [facility] Comment on above: Order Comment: Order Added by Discern Expert. Performed By: #### 1 7434759, 45372524, 2062361, 06010847 #### [facility] [address] [place] [address] Basophils/Leukocytes Auto (Bld) [Pure # fraction] 0.0 E9/L Normal 0.0-0.2 [facility] Comment on above: Order Comment: Order Added by Discern Expert. Performed By: #### 1 6996100, 29081647, 0100382, 59891831 #### [facility] [address] [place] [address] Eosinophils/100 WBC (Bld) 1.0 % Normal 0.0-8.0 [facility] Comment on above: Order Comment: Order Added by Discern Expert. Performed By: #### 1 4128827, 38097550, 5348227, 67873999 #### [facility] [address] [place] [address] Eosinophils/Leukocytes Auto (Bld) [Pure # fraction] 0.1 E9/L Normal 0.0-0.5 [facility] Comment on above: Order Comment: Order Added by Discern Expert. Performed By: #### 1 7947951, 48206534, 5599356, 81162275 #### [facility] [address] [place] [address] Lymphocytes/100 WBC (Bld) 31.6 % Normal 14.0-50.0 [facility] Comment on above: Order Comment: Order Added by Yony Expert. Performed By: #### 1 9778965, 16126596, 9435265, 94935223 #### [facility] [address] [place] [address] Lymphocytes/Leukocytes Auto (Bld) [Pure # fraction] 1.9 E9/L Normal 1.0-4.0 [facility] Comment on above: Order Comment: Order Added by Discern Expert. Performed By: #### 1 0499895, 49292078, 1082688, 81736435 #### [facility] [address] [place] [address] Monocytes/100 WBC (Bld) 9.5 % Normal 4.0-14.0 [facility] Comment on above: Order Comment: Order Added by Discern Expert. Performed By: #### 1 8617287, 15728384, 0465018, 82103374 #### [facility] [address] [place] [address] Monocytes/Leukocytes Auto (Bld) [Pure # fraction] 0.6 E9/L Normal 0.2-1.0 [facility] Comment on above: Order Comment: Order Added by Discern Expert. Performed By: #### 1 0309365, 19740327, 9364405, 81774415 #### [facility] [address] [place] [address] Neutrophils/100 WBC (Bld) 57.4 % Normal 36.0-75.0 [facility] Comment on above: Order Comment: Order Added by Discern Expert. Performed By: #### 1 2921928, 04028906, 4135381, 07788808 #### [facility] [address] [place] [address] Neutrophils/Leukocytes Auto (Bld) [Pure # fraction] 3.5 E9/L Normal 2.0-7.5 [facility] Comment on above: Order Comment: Order Added by Discern Expert. Performed By: #### 1 1940035, 62062545, 0340872, 35796607 #### [facility] [address] [place] [address] BLOOD BANKOrdered By: Christa Calhoun on 04-29-2023 ABO/Rh Interp Positive Invalid Interpretation Code [facility] BB Subsection ABSC Gel Interp Negative (04/29/23 2:38 PM) Normal [facility] BB Subsection BMPon 04-29-2023 Creatinine [Mass/Vol] 1.2 mg/dL Normal 0.5-1.3 [facility] Comment on above: Order Comment: Waiti ng to hear from if this can be added on to AM labs. HH Performed By: #### 1 1500082, 91328865, 2502338, 22381813 #### [facility] [address] [place] [address] Urea nitrogen [Mass/Vol] 18 mg/dL Normal 5-21 [facility] Comment on above: Order Comment: Waiti maciej to hear from if this can be added on to AM labs. HH Performed By: #### 1 7207188, 74886565, 9826490, 97337136 #### [facility] [address] [place] [address] Urea nitrogen/Creatinine [Mass ratio] 15 No Units Normal 10-20 [facility] Comment on above: Order Comment: Waiti maciej to hear from if this can be added on to AM labs. HH Performed By: #### 1 7337897, 27021184, 4464103, 57143612 #### [facility] [address] [place] [address] Anion gap [Moles/Vol] 8 mmol/L Normal 6-16 [facility] Comment on above: Order Comment: Johnna wing to hear from if this can be added on to AM labs. HH Performed By: #### 1 8761648, 65978264, 0213120, 54231542 #### [facility] [address] [place] [address] Calcium [Mass/Vol] 8.5 mg/dL Low 8.9-11.1 [facility] Comment on above: Order Comment: Marki maciej to hear from if this can be added on to AM labs. HH Performed By: #### 1 4146798, 12059330, 2340744, 69788909 #### [facility] [address] [place] [address] Chloride [Moles/Vol] 104 mmol/L Normal 101-111 [facility] Comment on above: Order Comment: Marki maciej to hear from if this can be added on to AM labs. HH Performed By: #### 1 6579456, 22397397, 1251443, 68798135 #### [facility] [address] [place] [address] CO2 [Moles/Vol] 29 mmol/L Normal 21-31 [facility] Comment on above: Order Comment: Johnna wing to hear from if this can be added on to AM labs. HH Performed By: #### 1 9835449, 37321090, 4591078, 12366802 #### [facility] [address] [place] [address] Glucose [Mass/Vol] 165 mg/dL Normal 55-199 [facility] Comment on above: Order Comment: Johnna wing to hear from if this can be added on to AM labs. HH Result Comment: If t his glucose result represents a fasting glucose, interpretation should refer to the following reference range: 55-99 mg/dL Performed By: #### 1 6492592, 96790380, 9771999, 67480867 #### [facility] [address] [place] [address] Potassium [Moles/Vol] 4.0 mmol/L Normal 3.5-5.3 [facility] Comment on above: Order Comment: Johnna wing to hear from if this can be added on to AM labs. HH Performed By: #### 1 4269354, 38563371, 6230488, 10047203 #### [facility] [address] [place] [address] Sodium [Moles/Vol] 137 mmol/L Normal 135-145 [facility] Comment on above: Order Comment: Jonhna wing to hear from if this can be added on to AM labs. HH Performed By: #### 1 1638611, 13725957, 8238753, 65436721 #### [facility] [address] [place] [address] Anion gap [Moles/Vol] 8 mmol/L Normal 6-16 [facility] Comment on above: Order Comment: dakota robins had an H&H drawn at 300am and has q 6 hour orders from there. [facility] 04/29/2023 03:19:14 EST Performed By: #### 1 9382851, 08743916, 4463874, 95038968 #### [facility] [address] [place] [address] Calcium [Mass/Vol] 8.6 mg/dL Low 8.9-11.1 [facility] Comment on above: Order Comment: dakota nt had an H&H drawn at 300am and has q 6 hour orders from there. [facility] 04/29/2023 03:19:14 EST Performed By: #### 1 8368015, 28962970, 2857653, 86553343 #### [facility] [address] [place] [address] Chloride [Moles/Vol] 104 mmol/L Normal 101-111 [facility] Comment on above: Order Comment: dakota nt had an H&H drawn at 300am and has q 6 hour orders from there. [facility] 04/29/2023 03:19:14 EST Performed By: #### 1 [id number], 18785154, 0655224, 92101181 #### [facility] [address] [place] [address] CO2 [Moles/Vol] 27 mmol/L Normal 21-31 [facility] Comment on above: Order Comment: dakota robins had an H&H drawn at 300am and has q 6 hour orders from there. [facility] 04/29/2023 03:19:14 EST Performed By: #### 1 7612401, 86275722, 5326454, 11183148 #### [facility] [address] [place] [address] Creatinine [Mass/Vol] 1.2 mg/dL Normal 0.5-1.3 [facility] Comment on above: Order Comment: dakota robins had an H&H drawn at 300am and has q 6 hour orders from there. [facility] 04/29/2023 03:19:14 EST Performed By: #### 1 6745991, 36588168, 7675721, 47785534 #### [facility] [address] [place] [address] Glucose [Mass/Vol] 181 mg/dL Normal 55-199 [facility] Comment on above: Order Comment: dakota robins had an H&H drawn at 300am and has q 6 hour orders from there. [facility] 04/29/2023 03:19:14 EST Result Comment: If t his glucose result represents a fasting glucose, interpretation should refer to the following reference range: 55-99 mg/dL Performed By: #### 1 8170950, 24771031, 8157871, 12679192 #### [facility] [address] [place] [address] Potassium [Moles/Vol] 4.1 mmol/L Normal 3.5-5.3 [facility] Comment on above: Order Comment: dakota robins had an H&H drawn at 300am and has q 6 hour orders from there. [facility] 04/29/2023 03:19:14 EST Performed By: #### 1 5469320, 30016351, 1970825, 52464098 #### [facility] [address] [place] [address] Sodium [Moles/Vol] 135 mmol/L Normal 135-145 [facility] Comment on above: Order Comment: dakota robins had an H&H drawn at 300am and has q 6 hour orders from there. [facility] 04/29/2023 03:19:14 EST Performed By: #### 1 8740037, 79651638, 3626113, 17723725 #### [facility] [address] [place] [address] Urea nitrogen [Mass/Vol] 19 mg/dL Normal 5-21 [facility] Comment on above: Order Comment: dakota robins had an H&H drawn at 300am and has q 6 hour orders from there. [facility] 04/29/2023 03:19:14 EST Performed By: #### 1 [id number], 25085715, 7424927, 56317749 #### [facility] [address] [place] [address] Urea nitrogen/Creatinine [Mass ratio] 16 No Units Normal 10-20 [facility] Comment on above: Order Comment: dakota robins had an H&H drawn at 300am and has q 6 hour orders from there. [facility] 04/29/2023 03:19:14 EST Performed By: #### 1 7605943, 43138801, 0653890, 08714907 #### [facility] [address] [place] [address] Blood Bank ID#on 04-29-2023 BBID# [id number] Invalid Interpretation Code [facility] Comment on above: Performed By: #### 1 6781724, 60414623, 8973726, 75259932 #### [facility] [address] [place] [address] CBC w/ Auto Diffon 3 Erythrocyte distribution width (RBC) [Ratio] 14.0 % Normal 10.9-14.2 [facility] Comment on above: Order Comment: Spoke with Violetta Gabriel Do not need CBC and H&H ...Run off extra Lav from AM labs Performed By: #### 1 2914707, 06621201, 0706975, 23948671 #### [facility] [address] [place] [address] Hematocrit (Bld) [Volume fraction] 22.5 % Low 37.7-49.0 [facility] Comment on above: Order Comment: Spoke with Violetta Gabriel Do not need CBC and H&H ...Run off extra Lav from AM labs Performed By: #### 1 6727311, 34534726, 6616363, 46406807 #### [facility] [address] [place] [address] Hemoglobin (Bld) [Mass/Vol] 7.7 g/dL Low 13.5-17.5 [facility] Comment on above: Order Comment: Spoke with Violetta Gabriel Do not need CBC and H&H ...Run off extra Lav from AM labs Performed By: #### 1 0279897, 00378748, 4074685, 62397114 #### [facility] [address] [place] [address] MCH (RBC) [Entitic mass] 28.3 pg Normal 27.0-34.0 [facility] Comment on above: Order Comment: Spoke with Violetta Gabriel Do not need CBC and H&H ...Run off extra Lav from AM labs Performed By: #### 1 3929517, 32851331, 4035431, 93114972 #### [facility] [address] [place] [address] MCHC (RBC) [Mass/Vol] 34.3 g/dL Normal 31.4-36.0 [facility] Comment on above: Order Comment: Spoke with Violetta Gabriel Do not need CBC and H&H ...Run off extra Lav from AM labs Performed By: #### 1 5422229, 18245851, 2615194, 65669502 #### [facility] [address] [place] [address] MCV (RBC) [Entitic vol] 82.4 fL Normal 80.0-100.0 [facility] Comment on above: Order Comment: Spoke with Violetta Gabriel Do not need CBC and H&H ...Run off extra Lav from AM labs Performed By: #### 1 5527165, 64472073, 3179353, 79554556 #### [facility] [address] [place] [address] Platelet mean volume (Bld) [Entitic vol] 8.7 fL Normal 6.4-10.8 [facility] Comment on above: Order Comment: Spoke with Ivolettafreda Gabriel Do not need CBC and H&H ...Run off extra Lav from AM labs Performed By: #### 1 [id number], [id number], [id number] #### [facility] [address] [place] [address] Platelets (Bld) [#/Vol] 147.0 E9/L Low 150.0-500.0 [facility] Comment on above: Order Comment: Spoke with Violetta Gabriel Do not need CBC and H&H ...Run off extra Lav from AM labs Performed By: #### 1 [id number], [id number], [id number], [id number] #### [facility] [address] [place] [address] RBC (Bld) [#/Vol] 2.7 E12/L Low 4.3-5.9 [facility] Comment on above: Order Comment: Spoke with Violetta Harvey Do not need CBC and H&H ...Run off extra Lav from AM labs Performed By: #### 1 [id number], [id number], [id number], [id number] #### [facility] [address] [place] [address] WBC corrected for nucl RBC Auto (Bld) [#/Vol] 6.0 E9/L Normal 4.0-11.0 [facility] Comment on above: Order Comment: Spoke with Violetta Harvey Do not need CBC and H&H ...Run off extra Lav from AM labs Performed By: #### 1 [id number], [id number], [id number], [id number] #### [facility] [address] [place] [address] CHEMISTRYOrdered By: SYSTEM SYSTEM on 04-29-2023 Anion gap [Moles/Vol] 8 mmol/L Normal 6 - 16 mEq/L [facility]isol Calcium [Mass/Vol] 8.5 mg/dL Low 8.9 - 11. 1 mg/dL [facility] Chloride [Moles/Vol] 104 mmol/L Normal 101 - 1 11 mmol/L [facility] CO2 [Moles/Vol] 29 mmol/L Normal 21 - 31 mmol/L [facility] Creatinine [Mass/Vol] 1.2 mg/dL Normal 0.5 - 1.3 mg/dL [facility] GFR/1.73 sq M.predicted among non-blacks MDRD (S/P/Bld) [Vol rate/Area] 70 mL/min/1.73 m2 Normal >=59mL/min/1 .73 m2 [facility] Comment on above: Interpretive Data: C hronic kidney disease could be indicated at eGFR's of less than 60 mL/min/1.73m2. Kidney failure is indicated at less than 15 mL/min/1.73m2. Glucose [Mass/Vol] 165 mg/dL Normal 55 - 199 mg/dL [facility] Comment on above: Interpretive Data: I f this glucose result represents a fasting glucose, interpretation should refer to the following reference range: 55-99 mg/dL Magnesium [Mass/Vol] 1.5 mg/dL Normal 1.3 - 2 .4 mg/dL [facility] Potassium [Moles/Vol] 4.0 mmol/L Normal 3.5 - 5.3 mmol/L [facility] Sodium [Moles/Vol] 137 mmol/L Normal 135 - 145 mmol/L [facility] Urea nitrogen [Mass/Vol] 18 mg/dL Normal 5 - 21 mg/dL [facility] Urea nitrogen/Creatinine [Mass ratio] 15 mg/mg Normal 10 - 20 [facility] Anion gap [Moles/Vol] 8 mmol/L Normal 6 - 16 mEq/L [facility] Remisol Calcium [Mass/Vol] 8.6 mg/dL Low 8.9 - 11. 1 mg/dL [facility] Chloride [Moles/Vol] 104 mmol/L Normal 101 - 1 11 mmol/L [facility] CO2 [Moles/Vol] 27 mmol/L Normal 21 - 31 mmol/L [facility] Creatinine [Mass/Vol] 1.2 mg/dL Normal 0.5 - 1.3 mg/dL [facility] GFR/1.73 sq M.predicted among non-blacks MDRD (S/P/Bld) [Vol rate/Area] 70 mL/min/1.73 m2 Normal >=59mL/min/1 .73 m2 [facility] Comment on above: Interpretive Data: C hronic kidney disease could be indicated at eGFR's of less than 60 mL/min/1.73m2. Kidney failure is indicated at less than 15 mL/min/1.73m2. Glucose [Mass/Vol] 181 mg/dL Normal 55 - 199 mg/dL [facility] Comment on above: Interpretive Data: I [...] High Sensitivity Troponin I Instructions For Use, Noa Roberta, December 2017) Urea nitrogen [Mass/Vol] 19 mg/dL [...] High Sensitivity Troponin I Instructions For Use, Rawporter, December 2017) Troponin I.cardiac [Mass/Vol] 21.10 pg/mL Normal 15.90 - 38.40 pg/mL [facility] Comment on above: Interpretive Data: T he 95% CI (Confidence Interval) PPV (Positive Predictive Value) for myocardial infarction in females is 38 pg/mL, in males 51 pg/mL. The results should be used in conjunction with clinical conditions of myocardial infarction. ([employer] High Sensitivity Troponin I Instructions For Use, Rawporter, December 2017) CHEMISTRYOrdered By: Hunter Culver on 04-29-2023 HbA1c (Bld) [Mass fraction] 8.2 % High <=5.9% [facility] [place]Auto[place] CT Abdomen/Pelvis w/ Contras ton 04-29-2023 [...] Oral contrast amount in ml's: 0 Normal [facility] CTA Cheston 04-29-2023 CTA Chest Exam [...] 370 Contrast amount in ml's: 100 Normal [facility] Capillary Glucose POCon 12-0 Glucose [Mass/Vol] 175 mg/dL High 55-99 [facility] Comment on above: Result Comment: Lucina edison Meter Performed By: #### 1 [id number], [id number], [id number], [id number] #### [facility] [address] [place] [address] Glucose [Mass/Vol] 139 mg/dL High 55-99 [facility] Comment on above: Result Comment: Christine godwin RN/ Performed By: #### 2 [id number] ####[facility] [address] [place] [address] Glucose [Mass/Vol] 143 mg/dL High 55-99 [facility] Comment on above: Result Comment: Christine PHILLIPS Performed By: #### 2 [id number] ####[facility] [address] [place] [address] Glucose [Mass/Vol] 162 mg/dL High 55-99 [facility] Comment on above: Result Comment: Christine PHILLIPS Performed By: #### 2 [id number] ####[facility] [address] [place] [address] Glucose [Mass/Vol] 168 mg/dL High 55-99 [facility] Comment on above: Result Comment: Lucina edison Meter Performed By: #### 1 [id number] #### [facility] [address] [place] [address] Glucose [Mass/Vol] 278 mg/dL High 55-99 [facility] Comment on above: Result Comment: Christine PHILLIPS Performed By: #### 1 [id number] #### [facility] [address] [place] [address] Consultation Noteon 04-29-20 Consultation Note Patient: JANICE SMYTH Age: 57 years Sex: Male : 1965 Associated Diagnoses: None Author: PRISCA ACOSTA, Sean Stovall Chief Complaint 04/29/2023 0:07 EST CP and abdominal pain 04/28/2023 20:38 EST Pt. came here d/t chest pain moves to both shoulder and back, SOB that started today. Pt got Sx ysterday by Dr. cope at [facility], after being deischarge he felt lightheaded [...] Pharmacy: [facility], 186, cm, 10/20/20 11:38:00 EDT, Height/Length Dosing, 96, kg, 10/20/20 11:38:00 EDT, Weight Dosing losartan 100 mg Tab: 100 mg = 1 tab(s), Oral, Daily, # 90 tab(s), Refills(s) 2, Pharmacy: [facility]/pharmacy #[id number], 188, cm, 01/16/23 7:42:00 EDT, Height/Length Dosing, 97, kg, 01/16/23 7:42:00 EDT, Weight Dosing nitroglycerin 0.4 mg sublingual Tab: 0.4 mg = 1 tab(s), SubLingual, q5min, PRN Chest pain, not to exceed 3 doses/15 min--if pain persists, seek medical attention, # 30 tab(s), Refills(s) 0, Pharmacy: [facility]/pharmacy #[id number], 185.4, cm, 02/21/20 20:48:00 EDT, Height/Length [...] bedtime) shaheen (more content not included)... Normal [facility] Comment on above: Result Comment: Elec tronically Signed By: PRISCA ACOSTA, Sean Michaud.ravin\Date and Time Signed: 04/29/23 12:47 EST ED Clinical Summaryon 2022 ED Clinical Summary [place] [id number] ED Clinical Summary Person Information Name: JANICE SMYTH/[facility] Age: 57 Years : 1965 Sex: Male Language: French PCP: ANTONIO KITCHEN DO Marital Status: Visit Id: Visit Reason: Dizziness; Shortness of breath; Chest pain; CHEST PAIN Speciality: Acuity: 2 Enc Type: Observation Med Service: Emergency Arrival: 04/28/2023 20:35:17 Discharge: LOS: 000 02:56 Checkin: 04/28/2023 20:35:17 Checkout: 04/28/2023 23:31:43 Dispo Type: Admitted as IP to this [facility] EVENTS: Event Name Event Status Request Date/Time [...] 04/28/2023 23:30:25 04/28/2023 23:30:25 04/28/2023 23:30:25 ADDRESS: [address] [place] [id number] PHYS DOC NOTES: MEDICAL INFORMATION: Prescriptions Given: Medications [...] Chest pain; Perinephric hematoma; Retroperitoneal hematoma Normal [facility] ED Note-Physicianon 04-29-20 ED Note-Physician Basic Information Time Seen: dimitry Gorancarlotta Grant 04/28/2023 20:38 Chief Complaint Pt. came here d/t chest pain moves to both shoulder and back, SOB that started today. Pt got Sx ysterday by Dr. cope at [facility], after being deischarge he felt lightheaded and dizzy the whole night. Hx of SD 2019, got stent put in. Got 1 nitro History of Present Illness Patient is a 57-year-old male with a history of SD with stent placed in 2019, HTN, hyperlipidemia, [...] a lithotripsy yesterday with Dr. Cope (at [facility]) and since that procedure, he endorses [...] and Complexity of Problems Differential Diagnosis: [] [facility] Data External documents reviewed: [] My [...] 61 minute(s), (more content not included)... Normal [facility] Comment on above: Result Comment: Elec tronically Signed By: Doug Tafoya DO\.br\Date and Time Signed: 04/28/23 23:07 EST ED Patient Education Noteon 04-29-2023 ED Patient Education Note Normal [facility] ED Patient Summaryon 023 ED Patient Summary [place] [id number] Patient Discharge Instructions Person Information Name: JANICE SMYTH Age: 57 Years Arrival Date: 04/28/2023 20:35:17 Discharge Diagnosis: Chest pain; Perinephric hematoma; Retroperitoneal hematoma Primary Care Physician: ANTONIO KITCHEN DO Provider Information Primary Provider: Doug Tafoya DO Advanced Housing Management Officer:None The exam and treatment you received in the Emergency Department were for an urgent problem and are not intended as complete care. It is important that you follow up with a doctor, nurse practitioner, or physician?s assistant producer for ongoing care. If your symptoms become [...] opioids can be used to help relieve yxzjdiyy-tv-aggwuz pain and are often prescribed following a [...] be struggling with addiction, tell your health home visit field care manager and ask for guidance or call [facility]?S National Helpline at 3-515-289-UZMC. k Source: [place] Department of Health and Human Services/Center for Disease Control & Prevention [facility] Medications Giv (more content not included)... Normal [facility] EMS Documentationon 04-29-20 EMS Documentation Please click on link to see report Normal [facility] Comment on above: Result Comment: Miss bullard Attachment - total size limit for all attachments exceeded [email or web address] Can be viewed in source system [employer] Videoon [facility] Education Video Yes Patient Avoiding Infections in the Hospital Normal [facility] HEMATOLOGYOrdered By: SYSTEM SYSTEM on 04-29-2023 [...] 3.5 E9/L Normal 2.0 - 7.5 E9/L [facility] HEMATOLOGYOrdered By: Christa Calhoun on 04-29-2023 Erythrocyte distribution width (RBC) [Ratio] 14.0 % Normal 10.9 - 14.2 % [facility] MCH (RBC) [Entitic mass] 28.3 pg Normal 27.0 - 34.0 pg [facility] HemeAutoSS MCHC (RBC) [Mass/Vol] 34.3 g/dL Normal 31.4 - 36.0 gm/dL [facility] HemeAutoSS MCV (RBC) [Entitic vol] 82.4 fL Normal 80.0 - 100.0 fL [facility]eAutoSS Platelet mean volume (Bld) [Entitic vol] 8.7 fL Normal 6.4 - 10.8 fL [facility] Platelets (Bld) [#/Vol] 147.0 E9/L Low 150.0 - 500.0 E9/L [facility] HemeAutoSS RBC (Bld) [#/Vol] 2.7 E12/L Low 4.3 - 5.9 E12/L [facility] WBC corrected for nucl RBC Auto (Bld) [#/Vol] 6.0 E9/L Normal 4.0 - 11.0 E9/L [facility] Hct & Hgbon 04-29-2023 Hematocrit (Bld) [Volume fraction] 21.1 % Low 37.7-49.0 [facility] Comment on above: Performed By: #### 1 [id number], [id number], [id number], [id number] #### [facility] [address] [place] [address] Hemoglobin (Bld) [Mass/Vol] 7.3 g/dL Low 13.5-17.5 [facility] Comment on above: Performed By: #### 1 [id number], [id number], [id number], [id number] #### [facility] [address] [place] [address] Hematocrit (Bld) [Volume fraction] 21.2 % Low 37.7-49.0 [facility] Comment on above: Performed By: #### 1 [id number] ####[facility] [address] [place] [address] Hemoglobin (Bld) [Mass/Vol] 7.4 g/dL Low 13.5-17.5 [facility] Comment on above: Performed By: #### 1 [id number] ####[facility] [address] [place] [address] Hematocrit (Bld) [Volume fraction] 22.3 % Low 37.7-49.0 [facility] Comment on above: Performed By: #### 2 [id number] #### [facility] [address] [place] [address] Hemoglobin (Bld) [Mass/Vol] 7.7 g/dL Low 13.5-17.5 [facility] Comment on above: Performed By: #### 2 [id number] #### [facility] [address] [place] [address] [id number] 04-29-2023 HbA1c (Bld) [Mass fraction] 8.2 % High <=5.9 [facility] Comment on above: Order Comment: Order placed by EKM rule. [email or web address] Performed By: #### 7 [id number] #### [facility] [address] [place] [address] Interdisciplinary Note - Mauricio e Manageron 04-29-2023 Interdisciplinary Note - Filer Helper CRM to room to discuss DC Planning. Patient is awake, alert and oriented. Patient is from home with his spouse, she will transport at DC. Patient verified PCP, home DME and insurance. Patient on 04/27 had a Right ESWL came back in 04/28 with a retroperitoneal Hematoma. [facility], see notes. Patient has urology consult. Patient denied any DC need from CRM for HH, DME and PM. Patient was provided CRM contact, white board updated. Anticipated DC TBD. CRM following Normal [facility] Comment on above: Result Comment: Elec tronically Signed By: Sarah Choi\.br\Date and Time Signed: 04/29/23 14:02 EST Magnesiumon 04-29-2023 Magnesium [Mass/Vol] 1.5 mg/dL Normal 1.3-2.4 [facility] Comment on above: Performed By: #### 1 [id number], [id number], [id number], [id number] #### [facility] [address] [place] [address] Monitor Recordon 04-29-2023 Monitor Record [id number]# 1.00TIFF Normal [facility] Monitor Record [id number]# 1.00TIFF Normal [facility] Monitor Record [id number]# 1.00TIFF Normal [facility] RAD - Preliminary Cat Scan R eporton 04-29-2023 RAD - Preliminary Cat Scan Report [id number]# 1.00TIFF Normal [facility] RAD - Preliminary Cat Scan Report [id number]# 1.00TIFF Normal [facility] Comment on above: Other Comment: stat rad read it wrong RCOon 04-29-2023 # of Units 1 Invalid Interpretation Code [facility] Comment on above: Performed By: #### 1 [id number] #### [facility] [address] [place] [address] Date Required 20230429 Invalid Interpretation Code [facility] Comment on above: Performed By: #### 1 [id number] #### [facility] [address] [place] [address] Order to Transfuse Yes Normal [facility] Comment on above: Performed By: #### 1 [id number] #### [facility] [address] [place] [address] Product Type None Required Invalid Interpretation Code [facility] Comment on above: Performed By: #### 1 [id number] #### [facility] [address] [place] [address] # of Units 2 Invalid Interpretation Code [facility] Comment on above: Performed By: #### 1 [id number] ####[facility] [address] [place] [address] Date Required 20230429 Invalid Interpretation Code [facility] Comment on above: Performed By: #### 1 [id number] ####[facility] [address] [place] [address] Order to Transfuse Yes Normal [facility] Comment on above: Performed By: #### 1 [id number] ####[facility] [address] [place] [address] Product Type None Required Invalid Interpretation Code [facility] Comment on above: Performed By: #### 1 [id number] ####[facility] [address] [place] [address] Troponin 3 Hr.on 04-29-2023 Troponin I.cardiac [Mass/Vol] 21.10 pg/mL Normal 15.90-38.40 [facility] Comment on above: Result Comment: The 95% CI (Confidence Interval) PPV (Positive Predictive Value) for myocardial infarction in females is 38 pg/mL, in males 51 pg/mL. The results should be used in conjunction with clinical conditions of myocardial infarction. (Access High Sensitivity Troponin I Instructions For Use, [employer], December 2017) Performed By: #### 1 [id number] ####[facility] [address] [place] [address] Troponin 6 Hr.on 04-29-2023 Troponin I.cardiac [Mass/Vol] 22.70 pg/mL Normal 15.90-38.40 [facility] Comment on above: Result Comment: The 95% CI (Confidence Interval) PPV (Positive Predictive Value) for myocardial infarction in females is 38 pg/mL, in males 51 pg/mL. The results should be used in conjunction with clinical conditions of myocardial infarction. (Access High Sensitivity Troponin I Instructions For Use, [employer]porter, December 2017) Performed By: #### 1 [id number] #### [facility] [address] [place] [address] Troponin 9 Hr.on 04-29-2023 Troponin I.cardiac [Mass/Vol] 29.60 pg/mL Normal 15.90-38.40 [facility] Comment on above: Result Comment: The 95% CI (Confidence Interval) PPV (Positive Predictive Value) for myocardial infarction in females is 38 pg/mL, in males 51 pg/mL. The results should be used in conjunction with clinical conditions of myocardial infarction. (Access High Sensitivity Troponin I Instructions For Use, Noa Elizabeth, December 2017) Performed By: #### 1 [id number] #### [facility] [address] [place] [address] XR Chest Single Viewon 04-29 XR Chest [...] mGy = na DAP = na Normal [facility] eGFRon 04-29-2023 GFR/1.73 sq M.predicted among non-blacks MDRD (S/P/Bld) [Vol rate/Area] 70 mL/min/1.73 m2 Normal >=59 [facility] Comment on above: Order Comment: Order added by Discern Expert. Result Comment: Tape Controlled Machine Stitcher juliana kidney disease could be indicated at eGFR's of less than 60 mL/min/1.73m2. Kidney failure is indicated at less than 15 mL/min/1.73m2. Performed By: #### 1 [id number], [id number], 7741372, [id number] #### [facility] [address] [place] [address] GFR/1.73 sq M.predicted among non-blacks MDRD (S/P/Bld) [Vol rate/Area] 70 mL/min/1.73 m2 Normal >=59 [facility] Comment on above: Order Comment: Order added by Discern Expert. Result Comment: Tape Controlled Machine Stitcher juliana kidney disease could be indicated at eGFR's of less than 60 mL/min/1.73m2. Kidney failure is indicated at less than 15 mL/min/1.73m2. Performed By: #### 1 [id number], [id number], [id number], [id number] #### [facility] [address] [place] [address] Auto Diffon 04-28-2023 Basophils/100 WBC (Bld) 0.4 % Normal 0.0-2.0 [facility] Comment on above: Order Comment: Order Added by Discern Expert. Performed By: #### 2 [id number] #### [facility] [address] [place] [address] Basophils/Leukocytes Auto (Bld) [Pure # fraction] 0.0 E9/L Normal 0.0-0.2 [facility] Comment on above: Order Comment: Order Added by Discern Expert. Performed By: #### 2 [id number] #### [facility] [address] [place] [address] Eosinophils/100 WBC (Bld) 0.6 % Normal 0.0-8.0 [facility] Comment on above: Order Comment: Order Added by Discern Expert. Performed By: #### 2 [id number] #### [facility] [address] [place] [address] Eosinophils/Leukocytes Auto (Bld) [Pure # fraction] 0.0 E9/L Normal 0.0-0.5 [facility] Comment on above: Order Comment: Order Added by Discern Expert. Performed By: #### 2 [id number] #### [facility] [address] [place] [address] Lymphocytes/100 WBC (Bld) 22.8 % Normal 14.0-50.0 [facility] Comment on above: Order Comment: Order Added by Discern Expert. Performed By: #### 2 [id number] #### [facility] [address] [place] [address] Lymphocytes/Leukocytes Auto (Bld) [Pure # fraction] 1.6 E9/L Normal 1.0-4.0 [facility] Comment on above: Order Comment: Order Added by Discern Expert. Performed By: #### 2 [id number] #### [facility] [address] [place] [address] Monocytes/100 WBC (Bld) 8.2 % Normal 4.0-14.0 [facility] Comment on above: Order Comment: Order Added by Yony Expert. Performed By: #### 2 [id number] #### [facility] [address] [place] [address] Monocytes/Leukocytes Auto (Bld) [Pure # fraction] 0.6 E9/L Normal 0.2-1.0 [facility] Comment on above: Order Comment: Order Added by Discern Expert. Performed By: #### 2 [id number] #### [facility] [address] [place] [address] Neutrophils/100 WBC (Bld) 68.0 % Normal 36.0-75.0 [facility] Comment on above: Order Comment: Order Added by Yony Expert. Performed By: #### 2 [id number] #### [facility] [address] [place] [address] Neutrophils/Leukocytes Auto (Bld) [Pure # fraction] 4.7 E9/L Normal 2.0-7.5 [facility] Comment on above: Order Comment: Order Added by Yony Expert. Performed By: #### 2 [id number] #### [facility] [address] [place] [address] BMPon 04-28-2023 Creatinine [Mass/Vol] 1.5 mg/dL High 0.5-1.3 [facility] Comment on above: Performed By: #### 7 [id number] #### [facility] [address] [place] [address] Urea nitrogen [Mass/Vol] 24 mg/dL High 5-21 [facility] Comment on above: Performed By: #### 7 [id number] #### [facility] [address] [place] [address] Urea nitrogen/Creatinine [Mass ratio] 16 No Units Normal 10-20 [facility] Comment on above: Performed By: #### 7 [id number] #### [facility] [address] [place] [address] Anion gap [Moles/Vol] 13 mmol/L Normal 6-16 [facility] Comment on above: Performed By: #### 7 [id number] #### [facility] [address] [place] [address] Calcium [Mass/Vol] 9.0 mg/dL Normal 8.9-11.1 [facility] Comment on above: Performed By: #### 7 [id number] #### [facility] [address] [place] [address] Chloride [Moles/Vol] 99 mmol/L Low 101-111 [facility] Comment on above: Performed By: #### 7 [id number] #### [facility] [address] [place] [address] CO2 [Moles/Vol] 26 mmol/L Normal 21-31 [facility] [facility] Comment on above: Performed By: #### 7 [id number] #### [facility] [address] [place] [address] Glucose [Mass/Vol] 347 mg/dL High 55-199 [facility] Comment on above: Result Comment: If t his glucose result represents a fasting glucose, interpretation should refer to the following reference range: 55-99 mg/dL Performed By: #### 7 [id number] #### [facility] [address] [place] [address] Potassium [Moles/Vol] 4.0 mmol/L Normal 3.5-5.3 [facility] Comment on above: Performed By: #### 7 [id number] #### [facility] [address] [place] [address] Sodium [Moles/Vol] 134 mmol/L Low 135-145 [facility] Comment on above: Performed By: #### 7 [id number] #### [facility] [address] [place] [address] CBC w/ Auto Diffon Erythrocyte distribution width (RBC) [Ratio] 14.0 % Normal 10.9-14.2 [facility] Comment on above: Performed By: #### 2 [id number] #### [facility] [address] [place] [address] Hematocrit (Bld) [Volume fraction] 23.7 % Low 37.7-49.0 [facility] Comment on above: Performed By: #### 2 [id number] #### [facility] [address] [place] [address] Hemoglobin (Bld) [Mass/Vol] 8.2 g/dL Low 13.5-17.5 [facility] Comment on above: Performed By: #### 2 [id number] #### [facility] [address] [place] [address] MCH (RBC) [Entitic mass] 28.3 pg Normal 27.0-34.0 [facility] Comment on above: Performed By: #### 2 [id number] #### [facility] [address] [place] [address] MCHC (RBC) [Mass/Vol] 34.6 g/dL Normal 31.4-36.0 [facility] Comment on above: Performed By: #### 2 [id number] #### [facility] [address] [place] [address] MCV (RBC) [Entitic vol] 81.7 fL Normal 80.0-100.0 [facility] Comment on above: Performed By: #### 2 [id number] #### [facility] [address] [place] [address] Platelet mean volume (Bld) [Entitic vol] 8.0 fL Normal 6.4-10.8 [facility] Comment on above: Performed By: #### 2 [id number] #### [facility] [address] [place] [address] Platelets (Bld) [#/Vol] 163.0 E9/L Normal 150.0-500.0 [facility] Comment on above: Performed By: #### 2 [id number] #### [facility] [address] [place] [address] RBC (Bld) [#/Vol] 2.9 E12/L Low 4.3-5.9 [facility] Comment on above: Performed By: #### 2 [id number] #### [facility] [address] [place] [address] WBC corrected for nucl RBC Auto (Bld) [#/Vol] 6.9 E9/L Normal 4.0-11.0 [facility] Comment on above: Performed By: #### 2 [id number] #### [facility] [address] [place] [address] COAGULATIONOrdered By: Odilon Langley on 04-28-2023 aPTT Coag (PPP) [Time] 26.0 s Normal 25.1 - 36.5 second(s) [facility] Comment on above: Interpretive Data: P arameter 15 days - 4 weeks 1 - 5 months 6 - 11 months 1 - 5 years 6 - 10 years 11 - 17 years PTT Mean: 35.4 (27.6-45.6) Mean: 33.5 (24.8-40.7) Mean: 32.4 (25.1-40.7) Mean: 31.6 (24.0-39.2) Mean: 31.6 (26.9-38.7) Mean: 31.0 (24.6-38.4) Pediatric Reference ranges were obtained from a study by perry Lyon al. prepared from 1437 samples obtained at 7 different centers using the same coagulation reagent and instrumentation as [facility]. Currently there are no coagulation studies available worldwide for children to 14 days, and no normal ranges. Heparin therapeutic range (represented by Anti-Factor Xa activity of 0.2 - 0.4 U/mL) corresponds to PTT of 56.6 - 109.0 sec. INR Coag (PPP) [Relative time] 1.0 {INR} Invalid Interpretation Code [facility] Comment on above: Interpretive Data: I NR results are specifically intended to assess patients stabilized on long-term Anticoagulation therapy suggested INR s Less Intensive Anticoagulation 2.0 3.0 Conventional Range 3.0 4.5 PT Coag (PPP) [Time] 11.5 s Normal 9.4 - 1 2.5 second(s) [facility] Comment on above: Interpretive Data: [...] the same coagulation reagent and instrumentation as [facility]. Currently there are no coagulation studies available worldwide for children to 14 days, and no normal ranges. Consent for Treatmenton Consent for Treatment [id number]#1 .00TIFF Normal [facility] HEMATOLOGYOrdered By: SYSTEM SYSTEM on 04-28-2023 [...] 81.7 fL Normal 80.0 - 100.0 fL [facility] HemeAutoSS Platelet mean volume (Bld) [Entitic vol] 8.0 fL Normal 6.4 - 10.8 fL [facility] HemeAutoSS Platelets (Bld) [#/Vol] 163.0 E9/L Normal 150.0 - 500.0 E9/L [facility] HemeAutoSS RBC (Bld) [#/Vol] 2.9 E12/L Low 4.3 - 5.9 E12/L [facility] HemeAutoSS WBC corrected for nucl RBC Auto (Bld) [#/Vol] 6.9 E9/L Normal 4.0 - 11.0 E9/L [facility] HemeAutoSS PT & PTTon 04-28-2023 aPTT Coag (PPP) [Time] 26.0 second(s) Normal 25.1-36.5 [facility] Comment on above: Result Comment: Para [...] the same coagulation reagent and instrumentation as [facility]. Currently there are no coagulation studies available worldwide for children to 14 days, and no normal ranges. Heparin therapeutic range (represented by Anti-Factor Xa activity of 0.2 - 0.4 U/mL) corresponds to PTT of 56.6 - 109.0 sec. Performed By: #### 2 [id number] #### [facility] [address] [place] [address] INR Coag (PPP) [Relative time] 1.0 {INR} Invalid Interpretation Code [facility] Comment on above: Result Comment: INR results are specifically intended to assess patients stabilized on long-term Anticoagulation therapy suggested INR?s ?Less Intensive Anticoagulation? 2.0 ? 3.0 Conventional Range 3.0 ? 4.5 Performed By: #### 2 [id number] #### [facility] [address] [place] [address] PT Coag (PPP) [Time] 11.5 second(s) Normal 9.4-12.5 [facility] Comment on above: Result Comment: 15 [...] the same coagulation reagent and instrumentation as [facility]. Currently there are no coagulation studies available worldwide for children to 14 days, and no normal ranges. Performed By: #### 2 [id number] #### [facility] [address] [place] [address] Pre-Arrival Noteon 3 Pre-Arrival Note Pre-Arrival Summary Name: , FARNAZ Current Date: 04/28/2023 20:38:23 EST Gender: Male Date of : Age: 57 Pre-Arrival Type: EMS ETA: 04/28/2023 20:56:00 EST Primary Care Physician: Presenting Problem: Chest pain, Shoulder and back pain Pre-Arrival User: Fabian Toussaint RN Referring Source: Location: [place] Completion Date/Time: 04/28/2023 20:27:00 [facility] Emergency Department Pre-Hospital Report Form Vital Signs: BP- 121/64, CR 103, RR-16, SP02-95 Room air Pre-Hospital Report: Treatment in Route: Nitro 1 tab SL, 1L IV Response to Treatment: Misc. Issues: Normal [facility] Troponin 0 Hr.on 04-28-2023 Troponin I.cardiac [Mass/Vol] 18.20 pg/mL Normal 15.90-38.40 [facility] Comment on above: Result Comment: The 95% CI (Confidence Interval) PPV (Positive Predictive Value) for myocardial infarction in females is 38 pg/mL, in males 51 pg/mL. The results should be used in conjunction with clinical conditions of myocardial infarction. (Access High Sensitivity Troponin I Instructions For Use, Noa Roberta, December 2017) Performed By: #### 7 [id number] #### [facility] [address] [place] [address] eGFRon 04-28-2023 GFR/1.73 sq M.predicted among non-blacks MDRD (S/P/Bld) [Vol rate/Area] 53 mL/min/1.73 m2 Low >=59 [facility] Comment on above: Order Comment: Order placed by EKM rule. [id number][facility] Result Comment: Tape Controlled Machine Stitcher juliana kidney disease could be indicated at eGFR's of less than 60 mL/min/1.73m2. Kidney failure is indicated at less than 15 mL/min/1.73m2. Performed By: #### 7 [id number] #### [facility] [address] [place] [address] Lab Reportson 04-27-2023 Lab Reports [id number]#1 .00TIFF Normal [facility] Operative Reporton Operative Report [id number]#1 .00TIFF Normal [facility] ECG 12-Leadon 04-14-2023 ECG 12-Lead [id number]#1. 00TIFF Normal [facility] Lab Reportson 04-14-2023 Lab Reports [id number]#1 .00TIFF Normal [facility] RAD - MISCon 04-14-2023 RAD - MISC [id number]#1 .00TIFF Normal [facility] Insurance Correspondenceon 06-07-2022 Insurance Correspondence [id number]# 1.00TIFF Normal [facility] Consent for Procedure/Surger yon 03-28-2023 Consent for Procedure/Surgery [id number]# 1.00TIFF Normal [facility] Physician Referralon 023 Physician Referral [id number]#1. 00TIFF Normal [facility] Ambulatory Visit Summaryon Ambulatory Visit Summary JANICE SMYTH :1965 Visit Date:03/27/2023 Ambulatory Visit Instructions Your Diagnosis Kidney stones BPH (benign prostatic hyperplasia) Aspirin long-term use Tests Performed Urnls Dip Stick Auto w/o Microscopy POC 41262 Your Care Team Attending Physician - Sean [...] laser litho Where: [facility] [address] , [place] [address]- [phone] Medications What How Much When Why Instructions [...] Urnls Dip Stick Auto w/o Microscopy POC 75728 (03/27/2023) Bilirubin Urine Dipstick - Negative Blood Urine Dipstick - Negative Glucose Urine Dipstick - Negative Ketones Urine Dipstick - Negative Leukocytes Urine Dipstick - Negative Nitrite Urine Dipstick - Negative Protein Urine Dipstick - 1+ (30 mg/dl) Specific [place] Urine Dipstick - 1.015 Urine Appearance Urine [...] receiving treatm (more content not included)... Normal [facility] Patient Educationon 03-27-20 Patient Education Urology Kidney Stones Kidney stones [...] these instructions at home: Medicines ? Take ylsw-mlz-hrebvhz and prescription medicines only as told by [...] provider. Document Revised: 01/17/2022 Document Reviewed: 01/17/2022 [employer] Patient Education ? 2022 EXPO. [employer] [facility] Urology Office/Clinic Noteon 03-27-2023 Urology Office/Clinic Note HPI Staff 57 yo male new pt re-referred by Dr. Antonio Kitchen for personal hx of urinary calculi. Last seen in office 08/27/[address] Culver. Previous Dx: BPH with LUTS, suprapubic pain, personal hx of smoking, group home use of blood thinners. S/p Cysto 06/08/17 and 07/26/18 by [facility]. S/p Green Light Laser of prostate 07/12/17 [...] 03/26/22 - 0.58 Has PSA order at [facility] from 01/03/[address] Kitchen. Per pt [...] lower urin (more content not included)... Normal [facility] Comment on above: Result Comment: Elec tronically Signed By: Sean COPE MD\.br\Date and Time Signed: 03/27/23 09:51 EDT\.br\Electronically Co-Signed By: Carol Padilla.br\Date and Time Co-Signed: 03/27/23 09:47 EDT Auto Diffon 03-08-2023 Basophils/100 WBC (Bld) 0.5 % Normal 0.0-2.0 [facility] Comment on above: Order Comment: Order Added by Discern Expert. Performed By: #### 1 [id number] #### [facility] [address] [place] [address] Basophils/Leukocytes Auto (Bld) [Pure # fraction] 0.0 E9/L Normal 0.0-0.2 [facility] Comment on above: Order Comment: Order Added by Discern Expert. Performed By: #### 1 [id number] #### [facility] [address] [place] [address] Eosinophils/100 WBC (Bld) 0.8 % Normal 0.0-8.0 [facility] Comment on above: Order Comment: Order Added by Discern Expert. Performed By: #### 1 [id number] #### [facility] [address] [place] [address] Eosinophils/Leukocytes Auto (Bld) [Pure # fraction] 0.0 E9/L Normal 0.0-0.5 [facility] Comment on above: Order Comment: Order Added by Discern Expert. Performed By: #### 1 [id number] #### [facility] [address] [place] [address] Lymphocytes/100 WBC (Bld) 32.6 % Normal 14.0-50.0 [facility] Comment on above: Order Comment: Order Added by Discern Expert. Performed By: #### 1 [id number] #### [facility] [address] [place] [address] Lymphocytes/Leukocytes Auto (Bld) [Pure # fraction] 1.8 E9/L Normal 1.0-4.0 [facility] Comment on above: Order Comment: Order Added by Discern Expert. Performed By: #### 1 [id number] #### [facility] [address] [place] [address] Monocytes/100 WBC (Bld) 7.2 % Normal 4.0-14.0 [facility] Comment on above: Order Comment: Order Added by Discern Expert. Performed By: #### 1 [id number] #### [facility] [address] [place] [address] Monocytes/Leukocytes Auto (Bld) [Pure # fraction] 0.4 E9/L Normal 0.2-1.0 [facility] Comment on above: Order Comment: Order Added by Discern Expert. Performed By: #### 1 [id number] #### [facility] [address] [place] [address] Neutrophils/100 WBC (Bld) 58.9 % Normal 36.0-75.0 [facility] Comment on above: Order Comment: Order Added by Discern Expert. Performed By: #### 1 [id number] #### [facility] [address] [place] [address] Neutrophils/Leukocytes Auto (Bld) [Pure # fraction] 3.2 E9/L Normal 2.0-7.5 [facility] Comment on above: Order Comment: Order Added by Discern Expert. Performed By: #### 1 [id number] #### [facility] [address] [place] [address] CBC w/ Auto Diffon Erythrocyte distribution width (RBC) [Ratio] 13.3 % Normal 10.9-14.2 [facility] Comment on above: Performed By: #### 1 [id number] #### [facility] [address] [place] [address] Hematocrit (Bld) [Volume fraction] 38.0 % Normal 37.7-49.0 [facility] Comment on above: Performed By: #### 1 [id number] #### [facility] [address] [place] [address] Hemoglobin (Bld) [Mass/Vol] 12.9 g/dL Low 13.5-17.5 [facility] Comment on above: Performed By: #### 1 [id number] #### [facility] [address] [place] [address] MCH (RBC) [Entitic mass] 28.0 pg Normal 27.0-34.0 [facility] Comment on above: Performed By: #### 1 [id number] #### [facility] [address] [place] [address] MCHC (RBC) [Mass/Vol] 34.0 g/dL Normal 31.4-36.0 [facility] Comment on above: Performed By: #### 1 [id number] #### [facility] [address] [place] [address] MCV (RBC) [Entitic vol] 82.6 fL Normal 80.0-100.0 [facility] Comment on above: Performed By: #### 1 [id number] #### [facility] [address] [place] [address] Platelet mean volume (Bld) [Entitic vol] 7.7 fL Normal 6.4-10.8 [facility] Comment on above: Performed By: #### 1 [id number] #### [facility] [address] [place] [address] Platelets (Bld) [#/Vol] 280.0 E9/L Normal 150.0-500.0 [facility] Comment on above: Performed By: #### 1 [id number] #### [facility] [address] [place] [address] RBC (Bld) [#/Vol] 4.6 E12/L Normal 4.3-5.9 [facility] Comment on above: Performed By: #### 1 [id number] #### [facility] [address] [place] [address] WBC corrected for nucl RBC Auto (Bld) [#/Vol] 5.4 E9/L Normal 4.0-11.0 [facility] Comment on above: Performed By: #### 1 [id number] #### [facility] [address] [place] [address] CHEMISTRYOrdered By: SYSTEM SYSTEM on 03-08-2023 CRP [Mass/Vol] 0.5 mg/dL Normal <=1.9mg/dL [facility] Remis ol CRPon 03-08-2023 CRP [Mass/Vol] 0.5 mg/dL Normal <=1.9 [facility] Comment on above: Performed By: #### 1 [id number] #### [facility] [address] [place] [address] Consent for Treatmenton 02-26 Consent for Treatment [id number]#1 .00TIFF Normal [facility] HEMATOLOGYOrdered By: SYSTEM SYSTEM on 03-08-2023 [...] 58.9 % Normal 36.0 - 75.0 % [facility] HemeAuto[facility] Neutrophils/Leukocytes Auto (Bld) [Pure # fraction] 3.2 E9/L Normal 2.0 - 7.5 E9/L [facility] HEMATOLOGYOrdered By: Ortiz Braden on 03-08-2023 Erythrocyte distribution width (RBC) [Ratio] 13.3 % Normal 10.9 - 14.2 % [facility] Hematocrit (Bld) [Volume fraction] 38.0 % Normal 37.7 - 49.0 % [facility] Hemoglobin (Bld) [Mass/Vol] 12.9 g/dL Low 13.5 - 17.5 gm/dL [facility] MCH (RBC) [Entitic mass] 28.0 pg Normal 27.0 - 34.0 pg [facility] MCHC (RBC) [Mass/Vol] 34.0 g/dL Normal 31.4 - 36.0 gm/dL [facility] MCV (RBC) [Entitic vol] 82.6 fL Normal 80.0 - 100.0 fL [facility] Platelet mean volume (Bld) [Entitic vol] 7.7 fL Normal 6.4 - 10.8 fL [facility] Platelets (Bld) [#/Vol] 280.0 E9/L Normal 150.0 - 500.0 E9/L [facility] RBC (Bld) [#/Vol] 4.6 E12/L Normal 4.3 - 5.9 E12/L [facility] WBC corrected for nucl RBC Auto (Bld) [#/Vol] 5.4 E9/L Normal 4.0 - 11.0 E9/L [facility] HEMATOLOGYOrdered By: Shikha Conteh on 03-08-2023 Sed Rate Automated 12 mm/h Normal 0 - 19 mm/hr [facility] Physician Orderon 03-08-2023 Physician Order [id number]#1 .00TIFF Normal [facility] Sed Rate Automatedon 023 Sed Rate Automated 12 mm/hr Normal 0-19 [facility] Comment on above: Performed By: #### 1 [id number] #### [facility] [address] [place] [address] IntraOperative Documentson 0 02-22-2023 IntraOperative Documents [id number]#1 .00CD:127 Normal [facility] Main OR Intraoperative Recor don 02-09-2023 Main OR Intraoperative Record IntraOp Document Type FT Summary Primary Physician: Yann Alvarez DO Finalized Date/Time: 02/09/23 13:23:06 Pt. Name: JANICE SMYTH/Sex: 1965 Male Med Rec #: [id number] Physician: Yann Alvarez DO Financial #: [id number] Pt. Type: A Room/Bed: Admit/Disch: 02/07/23 06:04:01 - 02/07/23 15:10:00 Institution: Case Times FT Entry 1 Patient Times In Room 02/07/23 08:51:00 Out Room 02/07/23 10:40:00 Procedure Times Start 02/07/23 09:23:00 Stop 02/07/23 10:33:00 Anesthesia Times Start 02/07/23 08:51:00 Stop 02/07/23 10:40:00 Block Timeout w02/07/23 07:39:00 Anesthesia Last Modified By: Trey Ellison 02/07/23 10:40:23 General Comments: Patient taken from [facility] to the block room at 0739 by Chris, ANNELIESE, connected to monitors with HR at 63bpm, SpO2 at 97% on room air, then right adductor canal nerve block done by Dr. Desouza at [phone] with Chris, ANNELIESE assisting, no issues, taken back to [facility] at 0746, hooked to monitors, verbal reports given to [facility] RN. ANNELIESE Perez 02/09/23 Chart opened to review and send charges [facility]FA Case Attendance FT Entry 1 Entry 2 Entry 3 Case Attendee Carlton RUIZ, SAUSAGE STRINGER, [facility], Yann Albarado VASCULAR SURGERY PHYSICIAN, Elroy Morales Role Performed SAUSAGE STRINGER Surgeon - Primary VASCULAR SURGERY PHYSICIAN/SA Time In 02/07/23 08:51:00 02/07/23 08:51:00 02/07/23 [...] Laura C Troike, Kendall R Role Performed Analytical Lead - Primary Scrub - Primary Scrub - [...] Trey Ellison 02/07/23 10:47:44 General Comments: PUSHPA LAMBERT - LEROY REP HERE FOR CASE. Alyssa ELLISON RN. NAV GARCIAER REP HERE FOR CASE. Alyssa ELLISON RN. [...] Antibiotic Yes Time Out Carlton RUIZ, LORELEI, Queen Arjun Participants NSola, Per [place], Mahsa Abbasi DO, Yann Grant, Trey Ellison, Alem Patel, Adithya Frederick, Violetta [...] Specialty O (more content not included)... Normal [facility] Consent for Anesthesiaon Consent for Anesthesia [id number]# 1.00CD:127 [facility] Discharge Instructionson Discharge Instructions [id number]# 1.00CD:127 Normal [facility] IntraOperative Documentson 0 02-08-2023 IntraOperative Documents [id number]# 1.00CD:127 [facility] Preoperative Documentson Preoperative Documents [id number]# 1.00CD:127 Normal [facility] ABO/Rhon 02-07-2023 ABO/Rh Positive Invalid Interpretation Code [facility] Comment on above: Performed By: #### 1 [id number], [id number], [id number], [id number] ####[facility] [address] [place] [address] ABO/Rh History Checkon 02-07 ABO/Rh History Check Verified Hx Blood Type Normal [facility] Comment on above: Performed By: #### 1 [id number], [id number], [id number], [id number] ####[facility] [address] [place] [address] ABSCon 09-12-2023 ABSC Gel Interp Negative Normal [facility] Comment on above: Performed By: #### 1 [id number], [id number], [id number], [id number] ####[facility] [address] [place] [address] BLOOD BANKOrdered By: John Amin on 02-07-2023 ABO/Rh Interp Positive Invalid Interpretation Code FT BB Subsection ABSC Gel Interp Negative (02/07/23 6:40 AM) Normal FT BB Subsection Blood Bank ID#on 02-07-2023 BBID# [id number] Invalid Interpretation Code [facility] Comment on above: Performed By: #### 1 [id number], [id number], [id number], [id number] ####[facility] [address] [place] [address] CHEMISTRYOrdered By: Lab ROP User on 02-07-2023 Glucose [Mass/Vol] 307 mg/dL High 55 - 99 mg/dL [facility] POC Subsection Comment on above: Result Comment: Lucina edison Meter POC Device SN [id number] Invalid Interpretation Code FT POC Subsection POC User ID [id number] Invalid Interpretation Code FT POC Subsection POC Username CELESTE BARRETT Invalid Interpretation Code FT POC Subsection Glucose [Mass/Vol] 195 mg/dL High 55 - 99 mg/dL [facility] POC Subsection POC Device SN [id number] Invalid Interpretation Code FT POC Subsection POC User ID [id number] Invalid Interpretation Code FT POC Subsection POC Username CELESTE BARRETT Invalid Interpretation Code [facility] POC Subsection Capillary Glucose POCon 01-27 Glucose [Mass/Vol] 307 mg/dL High 55-99 [facility] Comment on above: Result Comment: Lucina edison Meter Performed By: #### 2 [id number] #### [facility] [address] [place] [address] Glucose [Mass/Vol] 195 mg/dL High 55-99 [facility] Comment on above: Performed By: #### 2 [id number] ####[facility] [address] [place] [address] Consent for Treatmenton 01-27 Consent for Treatment [id number]#1 .00CD:127 [facility] Discharge Instructionson Discharge Instructions SMYTHJANICE :1965 Visit Date:02/07/2023 Inpatient Discharge Instructions Your Care Team Admitting Physician Yann Bates DO Referring Physician - Yann Alvarez DO [...] ACOSTA, Sean Stovall Where: [facility] Comment on above: Result Comment: Elec tronically Signed By: Obi COY, Sienna Grant\.br\Date and Time Signed: 02/07/23 12:39 EDT Discharge Instructions JANICE SMYTH :1965 Visit Date:02/07/2023 Inpatient Discharge Instructions Your Care Team Admitting Physician Yann Bates DO Referring Physician - Yann Alvarez DO [...] been scheduled Call for any problems. Where: [address] [place], [place] [id number]- Business (1) Medications What How Much When Why [...] possible. ? If the spirometer includes a health coach indicator, use this to guide you in breathing. Slow down your breathing if the indicator goes (more content not included)... Normal [facility] Comment on above: Result Comment: Elec tronically Signed By: Ralph COY, Christa Caceres\.br\Date and Time Signed: 02/07/23 11:50 EDT H&P Updateon 02-07-2023 H&P Update [id number] .00CD:127 Normal [facility] Main OR PACU I Recordon 01-27 Main OR PACU I Record PACU Phase I Docum ent Type FT Summary Primary Physician: Yann Alvarez DO Finalized Date/Time: 02/07/23 12:12:17 Pt. Name: SMYTHJANICE/Sex: 1965 Male Med Rec #: [id number] Physician: Yann Alvarez DO Financial #: [id number] Pt. Type: A Room/Bed: Admit/Disch: 02/07/23 06:04:01 [...] By: Lakisha Wren RN 02/07/23 12:12 Normal [facility] Main OR Preoperative Recordo n 02-07-2023 Main OR Preoperative Record PreOp Document Type FT Summary Primary Physician: Yann Alvarez DO Finalized Date/Time: 02/07/23 09:27:11 Pt. Name: JANICE SMYTH./Sex: 1965 Male Med Rec #: [id number] Physician: Yann Alvarez DO Financial #: [id number] Pt. Type: A Room/Bed: [facility] Admit/Disch: 02/07/23 06:04:01 - Institution: Case Times [...] Signed By: Trey Ellison 02/07/23 09:27 Normal [facility] Monitor Recordon 02-07-2023 Monitor Record [id number]# 1.00CD:127 Normal [facility] Monitor Record [id number]# 1.00CD:127 Normal [facility] Operative Reporton Operative Report SURGERY DATE: 02/07/2023 COMPOSITE BOND WORKER: Elroy Albarado CFA PREOPERATIVE DIAGNOSIS: Right knee osteoarthritis POSTOPERATIVE DIAGNOSIS: Right knee osteoarthritis OPERATION: Right knee robotic-assisted total knee arthroplasty using the Moises platform ANESTHESIA: Adductor canal block/spinal as well as general ANESTHESIOLOGIST: Queen Carmen Vincent CRNA ESTIMATED BLOOD LOSS: None INTRAVENOUS FLUIDS/URINARY OUTPUT: Please see operative record SPECIMEN: Bone and soft tissue COMPLICATIONS: None DRAINS: None IMPLANT: Bode Triathlon Total Knee System with a size [...] lateral. Total knee arthroplasty is done with quaker of limb stability, alignment and length with the use of the [employer]ishing robotic platform. The patient did tolerate the [...] time-out procedure. This is done on the [employer] Fishing platform as well. The limb is exsanguinated [...] tibial checkpoints (more content not included)... Normal [facility] Comment on above: Result Comment: Elec tronically Signed By: Yann Alvarez DO\freda\Date and Time Signed: 02/07/23 12:11 EDT Operative [...] Using maximal sterile barrier technique per current [facility] guidelines including hand hygeine, Guidance (Ultrasound used to identify anatomical landmarks, Using sterile gel and probe covers, Permanent image retained), The site was prepped with ChloraPrep. Procedure: Anesthetic Agent 0.5% Ropivacaine with 4mg Decadron, Catheter size 21 guage, Catheter length 100 mm, Number of attempts 1. Complications: None, The patient tolerated the procedure as expected. Normal [facility] Comment on above: Result Comment: Elec [...] possible. ? If the spirometer includes a health coach indicator, use this to guide you [...] provider. Document Revised: 08/03/2020 Document Reviewed: 08/03/2020 [email or web address] Patient Education ? 2022 EXPO. [place], [place] [facility] DISCHARGE INSTRUCTIONS TOTAL KNEE ARTHROPLASTY INCISION CARE: Continue the daily dressing care to the knee as instructed in the hospital for 7 days postoperatively. The dressing will then be changed and worn an additional 7 days. You may then discontinue the dressing changes. Remove the dressing on the lower leg po (more content not included)... Normal [facility] Progress Note-Physicianon Progress Note-Physician Patient: JANICE [...] Daily, # 90 tab(s), Refills(s) 3, Pharmacy: [facility], 186, cm, 11/24/21 14:21:00 EDT, Height/Length Dosing, 98, kg, 11/24/21 14:21:00 EDT, Weight Dosing atorvastatin 80 mg Tab: 80 mg = 1 tab(s), Oral, Daily, # 90 tab(s), Refills(s) 3, Pharmacy: [facility], 186, cm, 10/20/20 11:38:00 EDT, Height/Length Dosing, 96, kg, 10/20/20 11:38:00 EDT, Weight Dosing nitroglycerin 0.4 mg sublingual Tab: 0.4 mg = 1 tab(s), SubLingual, q5min, PRN Chest pain, not to exceed 3 doses/15 min--if pain persists, seek medical attention, # 30 tab(s), Refills(s) 0, Pharmacy: [facility]/pharmacy #[id number], 185.4, cm, 02/21/20 20:48:00 EDT, Height/Length [...] list: All Problems Arthritis / SNOMED CT 6776826 / Conf (more content not included)... Normal [facility] Comment on above: Result Comment: Elec tronically Signed By: Deion Desouza DO\.br\Date and Time Signed: 02/07/23 12:17 EDT Progress Note-Physician Patient: JANICE SMYTH Age: 57 years Sex: Male : 1965 Associated Diagnoses: None Author: Yann Alvarez DO Postoperative Information Procedure: R RA TKA Preoperative Diagnosis: R knee OA. Postoperative Diagnosis: same. Performed by: mahsa. Massage Coordinator: Jayme Albarado. Specimens Removed: bone, soft tissue. Prosthesis: Bode. . Estimated Blood Loss: 0 ml. Complications: None. Anesthesia type: General, Spinal, add canal block. Normal [facility] Comment on above: Result Comment: Elec [...] Daily, # 90 tab(s), Refills(s) 3, Pharmacy: [facility], 186, cm, 11/24/21 14:21:00 EDT, Height/Length Dosing, 98, kg, 11/24/21 14:21:00 EDT, Weight Dosing atorvastatin 80 mg Tab: 80 mg = 1 tab(s), Oral, Daily, # 90 tab(s), Refills(s) 3, Pharmacy: [facility], 186, cm, 10/20/20 11:38:00 EDT, Height/Length Dosing, 96, kg, 10/20/20 11:38:00 EDT, Weight Dosing nitroglycerin 0.4 mg sublingual Tab: 0.4 mg = 1 tab(s), SubLingual, q5min, PRN Chest pain, not to exceed 3 doses/15 min--if pain persists, seek medical attention, # 30 tab(s), Refills(s) 0, Pharmacy: [facility]/pharmacy #[id number], 185.4, cm, 02/21/20 20:48:00 EDT, Height/Length [...] list: All Problems Arthritis / SNOMED CT 8393707 / Confirmed Coronary artery disease / SNOMED CT 54620744 / Confirmed Degenerative joint disease / SNOMED CT 1889495529 / Confirmed Depression / SNOMED CT 37401098 / Confirmed Glaucoma / SNOMED CT 21161728 / Confirmed High blood pressure / SNOMED CT 9420191412 / Confirmed Intermittent chest pain / SNOMED CT 67114338 / Confirmed Type 2 diabetes mellitus / SNOMED CT 669268247 / Confirmed Resolved: Diabetes type / SNOMED CT 7245275418 Resolved: STEMI - ST elevation myocardial infarction / SNOMED CT 3836100470, Active Problems (8) Arthritis Coronary artery disease Degenerative joint disease Depression Glaucoma High blood pressure Intermittent chest pain Type 2 diabetes mellitus Histories Past Medical History: Resolved STEMI - ST elevation myocardial infarction (9398332409): Onset on 12/26/2019 at 54 years. Resolved. Diabetes type (5723260405): Resolved. Family History: Diabetes mellitus type 1 Father Procedure history: Cardiac catheterisation ([id number]) on 02/24/2020 at 54 Years. PCI - Percutaneous coronary intervention (4853203370) on 12/26/2019 at 54 Years. 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 Comments: 12/26/2019 9:24 EDT - Gianfranco COY, Lesvia rotater cuff Fracture of (more content not included)... Normal [facility] Comment on above: Result Comment: Elec [...] mGy = na DAP = na Normal [facility] Heart and Vascular Office/Cl inic Noteon 02-05-2023 Heart and Vascular Office/Clinic Note Chief Complaint 1 week folloow up chest pain History of Present Illness Janice Smyth is a 57-year-old male patient last seen in the office by Dr. Dela rCuz for further evaluation of chronic chest discomfort. [...] intact- no rash or concerning lesions Procedure [facility] - Dr Brink 02/24/20 CONCLUSIONS: 1. [...] artery disease (I25.10: Atherosclerotic heart disease of poarch coronary artery without angina pectoris) CAD with prior PCI. He continues aspirin 81 mg daily, high intensity atorvastatin 80 mg daily, losartan 100 mg daily. He did not tolerate beta-castro due to fatigue and baseline bradycardia. Follow-up With When Contact Information Jose De Jesus CAOSTA, Matthew Gar [address] [place] [address]- Additional Instructions: 1 year Problem List/Past Medical [...] Oral, Da (more content not included)... Normal [facility] Comment on above: Result Comment: Elec tronically Signed By: Estephania VILLANUEVA CNP\.ravin\Date and Time Signed: 02/05/23 15:28 EDT Consent for Procedure/Surger yon 02-03-2023 Consent for Procedure/Surgery [id number]# 1.00CD:127 Normal [facility] CT Lower Extremity w/o Contr ast [...] M.D. Transcribed by: NATALIE Technologist: PRINCESS Normal [facility] Insurance Correspondenceon 0 01-17-2023 Insurance Correspondence [id number]#1 .00CD:127 Normal [facility] ABO/Rh Retypeon 01-16-2023 ABO/Rh Retype Interp Positive Invalid Interpretation Code [facility] Comment on above: Performed By: #### 1 [id number] #### [facility] [address] [place] [address] BLOOD BANKOrdered By: Heidi Srinivasan on 01-16-2023 ABO/Rh Retype Interp Positive Invalid Interpretation Code [facility] BB Subsection BUNon 01-16-2023 Urea nitrogen [Mass/Vol] 13 mg/dL Normal - [facility] Comment on above: Performed By: #### 7 [id number] #### [facility] [address] [place] [address] CBC w/Indiceson 01-16-2023 Erythrocyte distribution width (RBC) [Ratio] 12.9 % Normal 10.9-14.2 [facility] Comment on above: Performed By: #### 7 [id number] #### [facility] [address] [place] [address] Hematocrit (Bld) [Volume fraction] 40.7 % Normal 37.7-49.0 [facility] Comment on above: Performed By: #### 7 [id number] #### [facility] [address] [place] [address] Hemoglobin (Bld) [Mass/Vol] 14.2 g/dL Normal 13.5-17.5 [facility] Comment on above: Performed By: #### 7 [id number] #### [facility] [address] [place] [address] MCH (RBC) [Entitic mass] 29.5 pg Normal 27.0-34.0 [facility] Comment on above: Performed By: #### 7 [id number] #### [facility] [address] [place] [address] MCHC (RBC) [Mass/Vol] 34.9 g/dL Normal 31.4-36.0 [facility] Comment on above: Performed By: #### 7 [id number] #### [facility] [address] [place] [address] MCV (RBC) [Entitic vol] 84.5 fL Normal 80.0-100.0 [facility] Comment on above: Performed By: #### 7 [id number] #### [facility] [address] [place] [address] Platelet mean volume (Bld) [Entitic vol] 8.0 fL Normal 6.4-10.8 [facility] Comment on above: Performed By: #### 7 [id number] #### [facility] [address] [place] [address] Platelets (Bld) [#/Vol] 226.0 E9/L Normal 150.0-500.0 [facility] Comment on above: Performed By: #### 7 [id number] #### [facility] [address] [place] [address] RBC (Bld) [#/Vol] 4.8 E12/L Normal 4.3-5.9 [facility] Comment on above: Performed By: #### 7 [id number] #### [facility] [address] [place] [address] WBC corrected for nucl RBC Auto (Bld) [#/Vol] 4.7 E9/L Normal 4.0-11.0 [facility] Comment on above: Performed By: #### 7 [id number] #### [facility] [address] [place] [address] CHEMISTRYOrdered By: SYSTEM SYSTEM on 01-16-2023 Anion gap [Moles/Vol] 9 mmol/L Normal 6 - 16 mEq/L [facility] Remisol Chloride [Moles/Vol] 104 mmol/L Normal 101 - 1 11 mmol/L [facility] Remisol CO2 [Moles/Vol] 28 mmol/L Normal 21 - 31 mmol/L [facility] Remisol Creatinine [Mass/Vol] 0.9 mg/dL Normal 0.5 - 1.3 mg/dL [facility] Remisol GFR/1.73 sq M.predicted among non-blacks MDRD (S/P/Bld) [Vol rate/Area] 98 mL/min/1.73 m2 Normal >=59mL/min/1 .73 m2 [facility] Chem S Glucose [Mass/Vol] 174 mg/dL Normal 55 - 199 mg/dL [facility] Remisol Potassium [Moles/Vol] 4.4 mmol/L Normal 3.5 - 5.3 mmol/L [facility] Remisol Sodium [Moles/Vol] 137 mmol/L Normal 135 - 145 mmol/L [facility] Remisol Urea nitrogen [Mass/Vol] 13 mg/dL Normal 5 - 21 mg/dL [facility] Remisol Consent for Treatmenton 12-28 Consent for Treatment [id number] [facility] [id number]#1 .00CD:127 Normal [facility] Creatinineon 01-16-2023 Creatinine [Mass/Vol] 0.9 mg/dL Normal 0.5-1.3 [facility] Comment on above: Performed By: #### 7 [id number] #### [facility] [address] [place] [address] Glucoseon 01-16-2023 Glucose [Mass/Vol] 174 mg/dL Normal 55-199 [facility] Comment on above: Performed By: #### 7 [id number] #### [facility] [address] [place] [address] HEMATOLOGYOrdered By: Ulysses Butler on 01-16-2023 Erythrocyte distribution width (RBC) [Ratio] 12.9 % Normal 10.9 - 14.2 % [facility] HemeAutoSS Hematocrit (Bld) [Volume fraction] 40.7 % Normal 37.7 - 49.0 % [facility] HemeAutoSS Hemoglobin (Bld) [Mass/Vol] 14.2 g/dL Normal 13.5 - 17.5 gm/dL [facility] HemeAutoSS MCH (RBC) [Entitic mass] 29.5 pg Normal 27.0 - 34.0 pg [facility] HemeAutoSS MCHC (RBC) [Mass/Vol] 34.9 g/dL Normal 31.4 - 36.0 gm/dL FT HemeAutoSS MCV (RBC) [Entitic vol] 84.5 fL Normal 80.0 - 100.0 fL [facility] HemeAutoSS Platelet mean volume (Bld) [Entitic vol] 8.0 fL Normal 6.4 - 10.8 fL [facility] HemeAutoSS Platelets (Bld) [#/Vol] 226.0 E9/L Normal 150.0 - 500.0 E9/L [facility] HemeAutoSS RBC (Bld) [#/Vol] 4.8 E12/L Normal 4.3 - 5.9 E12/L [facility] HemeAutoSS WBC corrected for nucl RBC Auto (Bld) [#/Vol] 4.7 E9/L Normal 4.0 - 11.0 E9/L [facility] HemeAutoSS Lyteson 01-16-2023 Anion gap [Moles/Vol] 9 mmol/L Normal 6-16 [facility] Comment on above: Performed By: #### 7 [id number] #### [facility] [address] [place] [address] Chloride [Moles/Vol] 104 mmol/L Normal 101-111 [facility] Comment on above: Performed By: #### 7 [id number] #### [facility] [address] [place] [address] CO2 [Moles/Vol] 28 mmol/L Normal 21-31 [facility] Comment on above: Performed By: #### 7 [id number] #### [facility] [address] [place] [address] Potassium [Moles/Vol] 4.4 mmol/L Normal 3.5-5.3 [facility] Comment on above: Performed By: #### 7 [id number] #### [facility] [address] [place] [address] Sodium [Moles/Vol] 137 mmol/L Normal 135-145 [facility] Comment on above: Performed By: #### 7 [id number] #### [facility] [address] [place] [address] Physician Orderon 01-16-2023 Physician Order [id number]# 1.00CD:127 Normal [facility] UA With Cult Reflexon 2022 Bacteria LM Ql (Urine sed) TRACE Normal Trace [facility] Comment on above: Performed By: #### 1 [id number] ####[facility] [address] [place] [address] Bilirubin Ql (U) Negative Normal Negative [facility] Comment on above: Performed By: #### 1 [id number] ####[address] [place] [address] Clarity (U) CLEAR Normal Clear [facility] Comment on above: Performed By: #### 1 [id number] ####[address] [place] [address] Color (U) YELLOW Normal Yellow [facility] Comment on above: Performed By: #### 1 [id number] ####[facility] [address] [place] [address] Epithelial cells.squamous LM.HPF (Urine sed) [#/Area] 0-2 Normal 0-2 [facility] Comment on above: Performed By: #### 1 [id number] ####[facility] [address] [place] [address] Glucose Test strip (U) [Mass/Vol] Negative Normal Negative [facility] Comment on above: Performed By: #### 1 [id number] ####[facility] [address] [place] [address] Hemoglobin Ql (U) 2+ Abnormal Negative [facility] Comment on above: Performed By: #### 1 [id number] ####[facility] [address] [place] [address] Ketones (U) [Mass/Vol] Negative Normal Negative [facility] Comment on above: Performed By: #### 1 [id number] ####[address] [address] [place].plasma/[place] .RBC (Bld) [Mass ratio] 4-20 Normal 0-3 [facility] Comment on above: Performed By: #### 1 [id number] ####[address] [address] Mucus Ql (Urine sed) TRACE Normal [facility] Comment on above: Performed By: #### 1 [id number] ####[address] [address] Nitrite Ql (U) Negative Normal Negative [facility] Comment on above: Performed By: #### 1 [id number] ####[address] [address] pH (U) 6.0 [pH] Invalid Interpretation Code 5.0-9.0 [facility] Comment on above: Performed By: #### 1 [id number] ####[address] [address] Protein (U) [Mass/Vol] Negative Normal Negative [facility] Comment on above: Performed By: #### 1 [id number] ####[address] [address] Specific gravity (U) [Rel density] 1.015 Invalid Interpretation Code 1.005-1.030 [facility] Comment on above: Performed By: #### 1 [id number] ####[address] [address] Type of Urine collection method Clean Catch Normal [facility] Comment on above: Performed By: #### 1 [id number] ####[address] [address] Urobilinogen Qn (U) 0.2 {Juan'U}/dL Normal 0.0-1.0 [facility] Comment on above: Performed By: #### 1 [id number] ####[address] [address] WBC Auto Ql (U) Negative Normal Negative [facility] Comment on above: Performed By: #### 1 [id number] ####[facility] [address] [place] [address] WBC LM.HPF (Urine sed) [#/Area] 0-5 Normal 0-5 [facility] Comment on above: Performed By: #### 1 [id number] ####[facility] [address] [place] [address] URINALYSISOrdered By: John Dumont on 01-16-2023 Bacteria LM Ql (Urine sed) Trace /HPF Normal Trace/HPF [facility] UA Auto SS Bilirubin Ql (U) Negative (01/16/23 7:55 AM) Normal Negative [facility] UA Auto SS Clarity (U) Clear (01/16/23 7:55 AM) Normal Clear [facility] UA Auto SS Color (U) Yellow (01/16/23 7:55 AM) Normal Yellow [facility] UA Auto SS Epithelial cells.squamous LM.HPF (Urine sed) [#/Area] 0-2 /HPF Normal 0-2/HPF [facility] UA Aut o SS Glucose Test strip (U) [Mass/Vol] Negative (01/16/23 7:55 AM) Normal Negative [facility] UA Auto SS Hemoglobin Ql (U) 2+ *ABN* (01/16/23 7:55 AM) Invalid Interpretation Code Negative [facility] UA Auto SS Ketones (U) [Mass/Vol] Negative (01/16/23 7:55 AM) Normal Negative [facility] UA Auto SS [place].plasma/[place] .RBC (Bld) [Mass ratio] 4-20 /HPF Normal [...] AM) Invalid Interpretation Code 1.005 - 1.030 [facility] UA Auto SS UA Spec Desc Clean Catch (01/16/23 7:55 AM) Normal [facility] UA Auto SS Urobilinogen Qn (U) 0.1468544 {Juan'U}/dL Normal 0.0 - 1.0 EU/dL [facility] UA Auto SS WBC Auto Ql (U) Negative (01/16/23 7:55 AM) Normal Negative [facility] UA Auto SS WBC LM.HPF (Urine sed) [#/Area] 0-5 /HPF Normal 0-5/HPF [facility] UA Auto SS XR Chest 2 Viewson [...] mGy = na DAP = na Normal [facility] eGFRon 01-16-2023 GFR/1.73 sq M.predicted among non-blacks MDRD (S/P/Bld) [Vol rate/Area] 98 mL/min/1.73 m2 Normal >=59 [facility] Comment on above: Order Comment: Order placed by EKM rule. [id number]_[facility] Result Comment: Tape Controlled Machine Stitcher juliana kidney disease could be indicated at eGFR's of less than 60 mL/min/1.73m2. Kidney failure is indicated at less than 15 mL/min/1.73m2. Performed By: #### 7 [id number] #### [facility] [address] [place] [address] Consent for Treatmenton 12-27 Consent for Treatment [id number]#1 .00CD:127 Normal [facility] Physician Orderon 01-12-2023 Physician Order [id number] #1.00CD:127 Normal [facility] Consent for Treatmenton 12-27 Consent for Treatment [id number]#1 .00CD:127 Normal [facility] Heart and Vascular Office/Cl inic Noteon [...] with voice recognition artificial intelligence software, specifically Akatsuki, vivio and or PawSpot. Substitutions may have occurred voice recognition and artificial intelligence software. ATTESTATION: Documentation services were performed after patient or guardian consented to allow [employer] to record this visit. 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 RINA: [...] C, 1000 mg, Oral, Daily Vitamin D, [address] International_Unit, Oral, Daily Allergies HYDROcodone (Itching) Social [...] Prophylaxis SARS-CoV-2 (COV (more content not included)... [facility] Comment on above: Result Comment: Elec tronically Signed By: Jose De Jesus ACOSTA, Matthew Gar\.br\Date and Time Signed: 01/09/23 03:44 EDT\.br\Electronically Co-Signed By: Malathi Perez\.br\Date and Time Co-Signed: 12/30/22 19:01 EDT Insurance Correspondenceon 0 01-04-2023 Insurance Correspondence [id number]# 1.00CD:127 [facility] Consent for Treatmenton Consent for Treatment [id number]#1 .00CD:127 [facility] Physician Orderon 12-30-2022 Physician Order [id number] 0 [id number]# 1.00CD:127 Normal [facility] Basic Metabolic Panelon 03-2 Anion gap [Moles/Vol] 17 mmol/L Normal 12-20 [facility] Specialist Comment on above: Result Comment: Effe ctive 06/03/2019 reference range changed. Performed By: #### B SOREN, LIPD #### [facility] [address] [facility] [place] [place] [id number] Calcium [Mass/Vol] 9.3 mg/dL Normal 8.6-10.2 Ryan coy [place] [employer] Comment on above: Performed By: #### B SOREN, LIPD #### [facility] [address] [facility] [place] [id number] Chloride [Moles/Vol] 101 mmol/L Normal 98-107 [facility] Comment on above: Performed By: #### B SOREN, LIPD #### [facility] [address] [facility] [place] [id number] CO2 [Moles/Vol] 25 mmol/L Normal 20-31 [facility] Comment on above: Performed By: #### B SOREN, LIPD #### [facility] [address] [facility] [place] [id number] Creatinine [Mass/Vol] 0.9 mg/dL Normal 0.7-1.4 [facility] Comment on above: Performed By: #### B SOREN, LIPD #### [facility] [address] [facility] [place] [place] [id number] eGFRAA 108 mL/min/1.73m2 Normal >60 [facility] Specialist Comment on above: Performed By: #### B SOREN, LIPD #### [facility] [address] [place], [place] [id number] eGFRNAA 89 mL/min/1.73m2 Normal >60 [facility] Specialist Comment on above: Performed By: #### B SOREN, LIPD #### [facility] [address] [place], [place] [id number] Glucose [Mass/Vol] 277 mg/dL High 65-99 Ryan coy [place] [employer] Comment on above: Result Comment: For FASTING Glucose --- ADA reference ranges: Normal 65-99 mg/dl Prediabetes 100-125 Diabetes >/= 126 Performed By: #### B KAMILA DOTY #### [facility] [address] [place], [place] [id number] Potassium [Moles/Vol] 4.5 mmol/L Normal 3.5-5.5 [facility] Comment on above: Performed By: #### B SOREN LIPLuís #### [facility] [address] [place], [place] [id number] Sodium [Moles/Vol] 138 mmol/L Normal 135-146 [facility] Comment on above: Performed By: #### B KAMILA DOTY #### [facility] [address] [place], [place] [id number] Urea nitrogen [Mass/Vol] 16 mg/dL Normal 7-25 [facility] Specialist Comment on above: Performed By: #### B SOREN LIPLuís #### [facility] [address] [place], [place] [id number] Hemoglobin A1Con 08-18-2021 EAG 271.87 Normal [facility] Comment on above: Performed By: #### A 1C #### [facility] [address] [place], [place] [id number] HbA1c (Bld) [Mass fraction] 11.1 % High 4.0-6.0 [facility] Comment on above: Performed By: #### A 1C #### [facility] [address] [place], [place] [id number] Lipid Panelon 08-18-2021 Cholesterol [Mass/Vol] 123 mg/dL Low 125-200 No [facility] Comment on above: Result Comment: Low risk < 200mg/dL Borderline risk 201-239 mg/dl High risk > or equal to 240 Performed By: #### B SOREN LIPLuís #### [facility] [address] [place], [place] [id number] Cholesterol in HDL [Mass/Vol] 42 mg/dL Normal >40 [facility] Specialist Comment on above: Result Comment: High Cardiovascular Risk HDL <40 mg/dL Low Cardiovascular Risk HDL > or equal to 60 mg/dl Performed By: #### B MP, LIPD #### [facility] [address] [place], [place] [id number] Cholesterol in LDL [Mass/Vol] 52 mg/dL Normal [facility] Comment on above: Result Comment: LDL ATP III CLASSIFICATION LDL less than 100 mg/dl Optimal LDL 100-129 mg/dl Near or above optimal LDL 130-159 Borderline high LDL 160-189 High LDL greater than 189 mg/dl Very High Performed By: #### B SOREN, LIPD #### [facility] [address] [place], [place] [id number] Cholesterol in VLDL [Mass/Vol] 29 mg/dL Normal [facility] Comment on above: Performed By: #### B SOREN, LIPD #### [facility] [address] [place], [place] [id number] Cholesterol.total/Chol esterol in HDL [Mass ratio] 3 {ratio} Normal [facility] Comment on above: Performed By: #### B SOREN, LIPD #### [facility] [address] [place], [place] [id number] Triglyceride [Mass/Vol] 145 mg/dL Normal 30-150 [facility] Specialist Comment on above: Result Comment: TRIG ATPIII CLASSIFICATIONS TRIG less than 150 mg/dl Normal TRIG 150-199 mg/dl Borderline High TRIG 200-500 mg/dl High TRIG greather than 500 mg/dl Very High Performed By: #### B SOREN, LIPD #### [facility] [address] [place], [place] [id number] Microalbumin (with Creat)on 08-18-2021 mALB 4.0 mg/dL Normal [facility] Comment on above: Result Comment: mALB reference range not established. Performed By: #### m ALBC #### [facility] [address] [place], [place] [id number] mALB/Creat Ratio 26.5 MCG/MG Normal [facility] Comment on above: Result Comment: The ADA (Diabetes Care 26:S94-S98, 2003) defines abnormalities in Albumin excretion as follows: Category Result (MCG/MG Creatinine) Normal <30 Microalbuminuria 30-299 Clinical Albuminuria > or = 300 Performed By: #### m ALBC #### [facility] [address] [place], [place] [id number] UCREA 151 mg/dL Normal 39-259 [facility] [employer] Comment on above: Performed By: #### m ALBC #### [facility] [address] [place] [id number] QUANTIFERON TB GOLD PLUS (NO N-INC)on 05-19-2021 Comment Incubation performed. Normal [facility] Comment on above: Performed By: #### Q NTTBG #### [facility] [address] [place] [address] Dr. Bryce Kaur Criteria Comment Normal [facility] Comment on above: Result Comment: The QuantiFERON-TB Gold Plus result is determined by subtracting the Nil value from either TB antigen (Ag) tube. The mitogen tube serves as a control for the test. Performed By: #### Q NTTBG #### [facility] [address] [place] [address] Dr. Bryce Kaur Mitogen Value >10.00 Normal [facility] Comment on above: Performed By: #### Q NTTBG #### [facility] [address] [place] [address] Dr. Bryce Kaur Nill Value 0.04 IU/mL Normal [facility] Comment on above: Performed By: #### Q NTTBG #### [facility] [address] [place] [address] Dr. Bryce Kaur Quantiferon Gold Plus Negative Normal Negative [facility] Comment on above: Result Comment: Chem iluminescence immunoassay methodology Performed By: #### Q NTTBG #### [facility] [address] [place] [address] Dr. Bryce Kaur TB1 Ag Value 0.04 IU/mL Normal [facility] Comment on above: Performed By: #### Q NTTBG #### [facility] [address] [place] [address] Dr. Bryce Kaur TB2 Ag Value 0.06 IU/mL Normal [facility] Comment on above: Performed By: #### Q NTTBG #### [facility] [address] [place] [address] Dr. Bryce Kaur CBC AUTO DIFFon 05-15-2021 BASO # 0.0 103/ul Normal 0.0-0.1 [facility] Comment on above: Performed By: #### C BC #### [facility] [address] [place] [address] Dr. Bryce Kaur Basophils/100 WBC (Bld) 0.4 % Normal 0.2-2.0 [facility] Comment on above: Performed By: #### C BC #### [facility] [address] [place] [address] Dr. Bryce Kaur EO # 0.2 103/ul Normal 0.0-0.7 [facility] Comment on above: Performed By: #### C BC #### [facility] [address] [place] [address] Dr. Bryce Kaur Eosinophils/100 WBC (Bld) 3.5 % Normal 0.9-7.0 [facility] Comment on above: Performed By: #### C BC #### [facility] [address] [place] [address] Dr. Bryce Kaur Erythrocyte distribution width (RBC) [Ratio] 11.9 % Normal 11.0-15.0 [facility] Comment on above: Performed By: #### C BC #### [facility] [address] [place] [address] Dr. Bryce Kaur Hematocrit (Bld) [Volume fraction] 42.3 % Normal 42.0-54.0 [facility] Comment on above: Performed By: #### C BC #### [facility] [address] [place] [address] Dr. Bryce Kaur Hemoglobin (Bld) [Mass/Vol] 15.0 g/dL Normal 14.0-18.0 [facility] Comment on above: Performed By: #### C BC #### [facility] [address] [place] [address] Dr. Bryce Kaur IG # 0.01 10e3/ul Normal 0.00-0.03 [facility] Comment on above: Performed By: #### C BC #### [facility] [address] [place] [address] Dr. Bryce Kaur IG % 0.2 % Normal 0.0-0.5 [facility] Comment on above: Performed By: #### C BC #### [facility] [address] [place] [address] Dr. Bryce Kaur LYMPH # 1.6 103/ul Normal 1.2-3.8 [facility] Comment on above: Performed By: #### C BC #### [facility] [address] [place] [address] Dr. Bryce Kaur Lymphocytes/100 WBC (Bld) 33.9 % Normal 20.5-60.0 [facility] Comment on above: Performed By: #### C BC #### [facility] [address] [place] [address] Dr. Bryce Kaur MANUAL DIFF REQ NO Normal [facility] Comment on above: Performed By: #### C BC #### [facility] [address] [place] [address] Dr. Bryce Kaur MCH (RBC) [Entitic mass] 29.2 pg Normal 25.9-34.0 [facility] Comment on above: Performed By: #### C BC #### [facility] [address] [place] [address] Dr. Bryce Kaur MCHC (RBC) [Mass/Vol] 35.5 g/dL Critically high 29.9-35.2 [facility] Comment on above: Performed By: #### C BC #### [facility] [address] [place] [address] Dr. Bryce Kaur MCV (RBC) [Entitic vol] 82.3 fL Normal 80.0-94.0 [facility] Comment on above: Performed By: #### C BC #### [facility] [address] [place] [address] Dr. Bryce Kaur MONO # 0.4 103/ul Normal 0.3-0.8 [facility] Comment on above: Performed By: #### C BC #### [facility] [address] [place] [address] Dr. Bryce Kaur Monocytes/100 WBC (Bld) 8.0 % Normal 1.7-12.0 [facility] Comment on above: Performed By: #### C BC #### [facility] [address] [place] [address] Dr. Bryce Kaur NEUT # 2.5 103/ul Normal 1.4-6.5 [facility] Comment on above: Performed By: #### C BC #### [facility] [address] [address] [address] Bryce Kaur Neutrophils/100 WBC (Bld) 54.0 % Normal 43.0-75.0 [facility] Comment on above: Performed By: #### C BC #### [facility] [address] [place] [address] Dr. Bryce Kaur Platelet mean volume (Bld) [Entitic vol] 10.0 fL Normal 9.5-13.5 [facility] Comment on above: Performed By: #### C BC #### [facility] [address] [place] [address] Dr. Bryce Kaur PLT 203 103/ul Normal 150-450 [facility] Comment on above: Performed By: #### C BC #### [facility] [address] [place] [address] Dr. Bryce Kaur RBC 5.14 106/ul Normal 4.70-6.10 [facility] Comment on above: Performed By: #### C BC #### [facility] [address] [place] [address] Dr. Bryce Kaur WBC 4.6 103/ul Normal 4.0-11.0 [facility] Comment on above: Performed By: #### C BC #### [facility] [address] [place] [address] Dr. Bryce Kaur LIPID PROFILEon 05-15-2021 CHOL-HDL RATIO NORM SEE BELOW Normal [facility] Comment on above: Result Comment: 3.3 - 4.4 LOW RISK 4.4 - 7.1 AVERAGE RISK 7.1 - 11.0 MODERATE RISK >11.0 HIGH RISK Performed By: #### L IPID, BMP, LIVER #### [facility] [address] [place] [address] Dr. Bryce Kaur Cholesterol [Mass/Vol] 114 mg/dL Normal <=200 [facility] Comment on above: Performed By: #### L IPID BMP, LIVER #### [facility] [address] [address] [address] Bryce Kaur Cholesterol in HDL [Mass/Vol] 41 mg/dL Normal [facility] Comment on above: Performed By: #### L IPID, BMP, LIVER #### [facility] [address] [address] [address] Bryce Kaur Cholesterol in LDL [Mass/Vol] 46.0 mg/dL Normal [facility] Comment on above: Performed By: #### L IPID BMP, LIVER #### [facility] [address] [address] [address] Bryce Kaur Cholesterol.total/Chol esterol in HDL [Mass ratio] 2.8 {ratio} Normal [facility] Comment on above: Performed By: #### L IPID, BMP, LIVER #### [facility] [address] [address] [address] Bryce Kaur HDL NORMAL > or = 60 mg/dl - LO W CARDIOVASCULAR RISK <40 mg/dl - HIGH CARDIOVASCULAR RISK Normal [facility] Comment on above: Performed By: #### L IPID BMP, LIVER #### [facility] [address] [address] [address] Bryce Kaur LDL CALC NORMAL SEE BELOW Normal [facility] Comment on above: Result Comment: <100 mg/dl OPTIMAL 100 - 129 mg/dl NEAR OR ABOVE OPTIMAL 130 - 159 mg/dl BORDERLINE HIGH 160 - 189 mg/dl HIGH >190 mg/dl VERY HIGH Performed By: #### L IPID, BMP, LIVER #### [facility] [address] [address] [address] Bryce Kaur Triglyceride [Mass/Vol] 135 mg/dL Normal <=150 [facility] Comment on above: Performed By: #### L IPID, BMP, LIVER #### [facility] [address] [address] [address] Bryce Kaur VLDL CALC 27.0 mg/dL Normal [facility] Comment on above: Performed By: #### L IPID, BMP, LIVER #### [facility] [address] [address] [address] Bryce Kaur LIVER PROFILEon 05-15-2021 Albumin [Mass/Vol] 3.8 g/dL Normal 3.5-5.0 [facility] Comment on above: Performed By: #### L IPID, BMP, LIVER #### [facility] [address] [address] [address] Bryce Kaur Albumin/Globulin [Mass ratio] 1.4 {ratio} Normal [facility] Comment on above: Performed By: #### L IPID, BMP, LIVER #### [facility] [address] [place] [address] Dr. Bryce Kaur ALP [Catalytic activity/Vol] 83 U/L Normal 38-126 [facility] Comment on above: Performed By: #### L IPID, BMP, LIVER #### [facility] [address] [address] [address] Bryce Kaur ALT [Catalytic activity/Vol] 59 U/L Normal 21-72 [facility] Comment on above: Performed By: #### L IPID, BMP, LIVER #### [facility] [address] [place] [address] Dr. Bryce Kaur AST [Catalytic activity/Vol] 23 U/L Normal 17-59 [facility] Comment on above: Performed By: #### L IPID, BMP, LIVER #### [facility] [address] [address] [address] Bryce Kaur BILI, CONJUGATED 0.2 mg/dL Normal 0.0-0.3 [facility] Comment on above: Performed By: #### L IPID, BMP, LIVER #### [facility] [address] [place] [address] Dr. Bryce Kaur Bilirubin [Mass/Vol] 0.9 mg/dL Normal 0.2-1.3 [facility] Comment on above: Performed By: #### L IPID, BMP, LIVER #### [facility] [address] [place], [place] [id number] Dr. Bryce Kaur Globulin (S) [Mass/Vol] 2.7 g/dL Normal [facility] Comment on above: Performed By: #### L IPID, BMP, LIVER #### [facility] [address] [place] [address] Dr. Bryce Kaur Protein [Mass/Vol] 6.5 g/dL Normal 6.1-8.2 [facility] Comment on above: Performed By: #### L IPID, BMP, LIVER #### [facility] [address] [place] [address] Dr. Bryce Kaur PROF CHEM 8 (BAS METB)on Anion gap [Moles/Vol] 9.9 mmol/L Normal [facility] Comment on above: Performed By: #### L IPID, BMP, LIVER #### [facility] [address] [place] [address] Dr. Bryce Kaur Calcium [Mass/Vol] 9.5 mg/dL Normal 8.4-10.2 [facility] Comment on above: Performed By: #### L IPID, BMP, LIVER #### [facility] [address] [place] [address] Dr. Bryce Kaur Chloride [Moles/Vol] 98 mmol/L Normal 98-107 [facility] Comment on above: Performed By: #### L IPID, BMP, LIVER #### [facility] [address] [place] [address] Dr. Bryce Kaur CO2 [Moles/Vol] 33.2 mmol/L Critically high 22.0-30.0 [facility] Comment on above: Performed By: #### L IPID, BMP, LIVER #### [facility] [address] [place] [address] Dr. Bryce Kaur Creatinine [Mass/Vol] 0.87 mg/dL Normal 0.66-1.25 [facility] Comment on above: Performed By: #### L IPID, BMP, LIVER #### [facility] [address] [place] [address] Dr. Bryce Kaur EGFR-AF SPANISH >60 Normal >=60 [facility] Comment on above: Performed By: #### L IPID, BMP, LIVER #### [facility] [address] [address] [address] Bryce Kaur EGFR-NON AF SPANISH >60 Normal >=60 [facility] Comment on above: Performed By: #### L IPID, BMP, LIVER #### [facility] [address] [address] [address] Bryce Kaur Glucose [Mass/Vol] 255 mg/dL Critically high 74-106 [facility] Comment on above: Performed By: #### L IPID, BMP, LIVER #### [facility] [address] [address] [address] Bryce Kaur Potassium [Moles/Vol] 4.1 mmol/L Normal 3.4-5.0 [facility] Comment on above: Performed By: #### L IPID, BMP, LIVER #### [facility] [address] [address] [address] Bryce Kaur Sodium [Moles/Vol] 137 mmol/L Normal 137-145 [facility] Comment on above: Performed By: #### L IPID, BMP, LIVER #### [facility] [address] [place] [address] Dr. Bryce Kaur Urea nitrogen [Mass/Vol] 16.0 mg/dL Normal 9.0-20.0 [facility] Comment on above: Performed By: #### L IPID, BMP, LIVER #### [facility] [address] [place] [address] Dr. Bryce Kaur Urea nitrogen/Creatinine [Mass ratio] 18.4 mg/mg Normal [facility] Comment on above: Performed By: #### L IPID, BMP, LIVER #### [facility] [address] [place] [address] Dr. Bryce Kaur Complete Pulmonary Functiono n 09-07-2020 Complete Pulmonary Function [facility] Main [place] [address] [place] [address] Pulmonary Function Signed Patient: Janice Smyth MR#: [id number] : 1965 Acct:[id number] Age/Sex: 54 / M ADM Date: 09/03/20 Loc: RT Room: Type: [facility] Attending Dr: Antonio Kitchen DO Ordering Provider: Antonio Kitchen DO Date of Service: 09/03/20 Accession #: Copies to: Antonio Kitchen DO The patient was evaluated for some exertional dyspnea and mild asthma. He is a reformed smoker. 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 [...] for comparison at this time. Transcribed By: NTS 09/08/20 1035 Dictated By: Antonio Kitchen DO 09/07/20 1707 Signed By: 10/06/20 1708 [facility] Vital Signs Date Time Vital Sign Value Performing Clinician Anabell solitario 06-12-2023 09:23-0500 Blood Pressure Location Sean [facility] 06-12-2023 09:23-0500 Diastolic blood pressure 82 mm[Hg] Sean COPE [facility] 06-12-2023 09:23-0500 Heart rate 70 /min Sean COPE [facility] 06-12-2023 09:23-0500 Systolic blood pressure 124 mm[Hg] Sean COPE [facility] 05-08-2023 11:32-0500 Blood Pressure Location Sean [facility] 05-08-2023 11:32-0500 Diastolic blood pressure 83 mm[Hg] Sean COPE [facility] 05-08-2023 11:32-0500 Heart rate 94 /min Sean COPE [facility] 05-08-2023 11:32-0500 Respiratory rate 16 /min Sean COPE [facility] 05-08-2023 11:32-0500 Systolic blood pressure 139 mm[Hg] Sean COPE [facility] 05-01-2023 15:04-0500 Hourly Rounding [facility] 05-01-2023 15:04-0500 Promise to Return [facility] 05-01-2023 14:57-0500 Hourly Rounding [facility] 05-01-2023 14:57-0500 Promise to Return [facility] 05-01-2023 14:55-0500 Hourly Rounding [facility] 05-01-2023 13:39-0500 Promise to Return [facility] 05-01-2023 11:57-0500 Heart rate 83 /min [facility] 05-01-2023 11:57-0500 SaO2% (BldA) [Mass fraction] 96 % [facility] 05-01-2023 11:54-0500 Body temperature 98.24 [degF] [facility] 05-01-2023 11:54-0500 Diastolic blood pressure 85 mm[Hg] [facility] 05-01-2023 11:54-0500 Mean blood pressure 105 mm[Hg] Danica [facility] 05-01-2023 11:54-0500 Systolic blood pressure 146 mm[Hg] Danica [facility] 05-01-2023 07:28-0500 Heart rate 74 /min [facility] 05-01-2023 07:28-0500 SaO2% (BldA) [Mass fraction] 96 % [facility] 05-01-2023 07:27-0500 Diastolic blood pressure 86 mm[Hg] Danica [facility] 05-01-2023 07:27-0500 Mean blood pressure 113 mm[Hg] Danica [facility] 05-01-2023 07:27-0500 Systolic blood pressure 167 mm[Hg] [facility] 05-01-2023 07:27-0500 Body temperature 98.42 [degF] [facility] 05-01-2023 04:30-0500 Blood Pressure Location [facility] 05-01-2023 04:30-0500 Body temperature 98.96 [degF] [facility] 05-01-2023 04:30-0500 Diastolic blood pressure 81 mm[Hg] [facility] 05-01-2023 04:30-0500 Mean blood pressure 105 mm[Hg] Danica [facility] 05-01-2023 04:30-0500 SaO2% (BldA) [Mass fraction] 94 % [facility] 05-01-2023 04:30-0500 Systolic blood pressure 153 mm[Hg] [facility] 05-01-2023 03:30-0500 Blood Pressure Location [facility] 05-01-2023 03:30-0500 Body temperature 100.94 [degF] [facility] 05-01-2023 03:30-0500 Mean blood pressure 119 mm[Hg] Danica [facility] 04-30-2023 22:45-0500 Blood Pressure Location [facility] 04-30-2023 19:41-0500 Heart rate 85 /min [facility] 04-30-2023 19:40-0500 Mean blood pressure 119 mm[Hg] [facility] 04-30-2023 19:40-0500 Body temperature 98.06 [degF] [facility] 04-30-2023 03:05-0500 Body temperature 98.06 [degF] [facility] 04-30-2023 03:05-0500 Respiratory rate 19 /min [facility] 04-30-2023 01:00-0500 Mean blood pressure 96 mm[Hg] [facility] 04-30-2023 00:40-0500 Respiratory rate 18 /min [facility] 04-29-2023 23:40-0500 Heart rate 76 /min [facility] 04-29-2023 17:00-0500 pulse [facility] 04-29-2023 16:50-0500 Heart rate 72 /min [facility] 04-28-2023 23:48-0500 Heart rate 90 /min [facility] 04-28-2023 23:30-0500 Respiratory rate 10 /min [facility] 04-28-2023 23:00-0500 Respiratory rate 18 /min [facility] [facility] 04-28-2023 22:04-0500 Respiratory rate 19 /min [facility] 04-28-2023 20:40-0500 gluc 327 mg/dL Danica [facility] 04-28-2023 20:40-0500 gluc [facility] 04-28-2023 20:38-0500 Heart rate 98 /min [facility] 03-27-2023 09:12-0400 Blood Pressure Location Seandelfino COPE [facility] 03-27-2023 09:12-0400 Diastolic blood pressure 76 mm[Hg] Sean COPE [facility] 03-27-2023 09:12-0400 Heart rate 71 /min Sean COPE [facility] 03-27-2023 09:12-0400 Respiratory rate 16 /min Sean COPE [facility] 03-27-2023 09:12-0400 Systolic blood pressure 139 mm[Hg] Seandelfino COPE [facility] 02-07-2023 15:00-0400 Diastolic blood pressure 80 mm[Hg] Yann Alvarez [facility] 02-07-2023 15:00-0400 Heart rate 86 /min Yann Alvarez [facility] 02-07-2023 15:00-0400 SaO2% (BldA) [Mass fraction] 98 % Yann Venturaos [facility] 02-07-2023 15:00-0400 Systolic blood pressure 150 mm[Hg] Yann Alvarez [facility] 02-07-2023 14:01-0400 Heart rate 84 /min Yann Alvarez [facility] 09-12-2023 14:01-0400 SaO2% (BldA) [Mass fraction] 97 % Yann Pocos [facility] 02-07-2023 14:01-0400 Respiratory rate 18 /min Yann Pocos [facility] 02-07-2023 14:01-0400 Blood Pressure Location Yann Pocos [facility] 02-07-2023 14:01-0400 Diastolic blood pressure 86 mm[Hg] Yann Pocos [facility] 02-07-2023 14:01-0400 Mean blood pressure 106 mm[Hg] Yann Pocos [facility] 02-07-2023 14:01-0400 Systolic blood pressure 147 mm[Hg] Yann Pocos [facility] 02-07-2023 11:47-0400 Heart rate 74 /min Yann Pocos [facility] 02-07-2023 11:47-0400 SaO2% (BldA) [Mass fraction] 97 % Yann Pocos [facility] 02-07-2023 11:45-0400 Respiratory rate 20 /min Yann Pocos [facility] 02-07-2023 11:45-0400 Body temperature 97.34 [degF] Yann Pocos [facility] 02-07-2023 11:44-0400 Blood Pressure Location Yann Pocos [facility] 02-07-2023 11:44-0400 Diastolic blood pressure 88 mm[Hg] Yann Pocos [facility] 02-07-2023 11:44-0400 Mean blood pressure 111 mm[Hg] Yann Pocos [facility] 02-07-2023 11:44-0400 Systolic blood pressure 157 mm[Hg] Yann Pocos [facility] 02-07-2023 11:35-0400 Blood Pressure Location Yann Pocos [facility] 02-07-2023 11:35-0400 Body temperature 98.42 [degF] Yann Pocos [facility] 02-07-2023 11:35-0400 Mean blood pressure 106 mm[Hg] Yann Pocos [facility] 02-07-2023 11:35-0400 Respiratory rate 12 /min Yann Pocos [facility] 02-07-2023 11:25-0400 Mean blood pressure 118 mm[Hg] Yann Pocos [facility] 02-07-2023 11:25-0400 Respiratory rate 10 /min Yann Pocos [facility] 02-07-2023 11:15-0400 Mean blood pressure 117 mm[Hg] Yann Pocos [facility] 02-07-2023 11:15-0400 Respiratory rate 12 /min Yann Pocos [facility] 02-07-2023 10:42-0400 Body temperature 98.42 [degF] Yann Pocos [facility] 02-07-2023 06:24-0400 Mean blood pressure 111 mm[Hg] Yann Pocos [facility] 02-07-2023 06:21-0400 Heart rate 66 /min Yann Pocos [facility] 01-16-2023 07:52-0400 Diastolic blood pressure 92 mm[Hg] Yann Pocos [facility] 01-16-2023 07:52-0400 Heart rate 75 /min Yann Pocos [facility] 01-16-2023 07:52-0400 Mean blood pressure 116 mm[Hg] Yann Pocos [facility] 01-16-2023 07:52-0400 Systolic blood pressure 163 mm[Hg] Yann Pocos [facility] 01-16-2023 07:51-0400 Heart rate 66 /min Yann Pocos [facility] 01-16-2023 07:51-0400 SaO2% (BldA) [Mass fraction] 97 % Yann Pocos [facility] 01-16-2023 07:50-0400 Body temperature 98.24 [degF] Yann Pocos [facility] 01-16-2023 07:50-0400 Blood Pressure Location Yann Pocos [facility] 01-16-2023 07:50-0400 Diastolic blood pressure 97 mm[Hg] Yann Pocos [facility] 01-16-2023 07:50-0400 Mean blood pressure 118 mm[Hg] Yann Pocos [facility] 01-16-2023 07:50-0400 Systolic blood pressure 161 mm[Hg] Yann Pocos [facility] 01-16-2023 07:50-0400 Respiratory rate 16 /min Yann Pocos [facility] 01-12-2023 10:46-0400 Diastolic blood pressure 92 mm[Hg] Estephania VILLANUEVA [facility] 01-12-2023 10:46-0400 Mean blood pressure 117 mm[Hg] Estephania VILLANUEVA [facility] 01-12-2023 10:46-0400 Systolic blood pressure 168 mm[Hg] Estephania VILLANUEVA [facility] 01-12-2023 10:29-0400 Blood Pressure Location Estephania VILLANUEVA [facility] 01-12-2023 10:29-0400 Diastolic blood pressure 90 mm[Hg] Estephania VILLANUEVA [facility] 01-12-2023 10:29-0400 Heart rate 61 /min Estephania VILLANUEVA [facility] 01-12-2023 10:29-0400 SaO2% (BldA) [Mass fraction] 98 % Estephania VILLANUEVA [facility] 01-12-2023 10:29-0400 Systolic blood pressure 168 mm[Hg] Estephania VILLANUEVA [facility] 11-24-2021 14:25-0400 Diastolic blood pressure 80 mm[Hg] Matthew Christofferson [facility] 11-24-2021 14:25-0400 Mean blood pressure 106 mm[Hg] Matthew Christofferson [facility] 11-24-2021 14:25-0400 Systolic blood pressure 159 mm[Hg] Matthew Christofferson [facility] 11-24-2021 14:15-0400 Blood Pressure Location Matthew Christofferson [facility] 11-24-2021 14:15-0400 Diastolic blood pressure 81 mm[Hg] Matthew Christofferson [facility] 11-24-2021 14:15-0400 Heart rate 66 /min Matthew Christofferson [facility] 11-24-2021 14:15-0400 Respiratory rate 18 /min Matthew Christofferson [facility] 11-24-2021 14:15-0400 SaO2% (BldA) [Mass fraction] 100 % Matthew Dela Cruz [facility] 11-24-2021 14:15-0400 Systolic blood pressure 153 mm[Hg] Matthew Dela Cruz [facility] Encounters Encounter Date Encounter Type Care Provider Facility Start: 07-05-2023 End: 07-06-2023 ambulatory Teddy Pocos [facility] Start: 07-05-2023 End: 07-05-2023 ambulatory TEDDY POCOS Not Available Start: 07-03-2023 End: 07-03-2023 ambulatory CINDY DAHM Not Available Start: 06-30-2023 Bamboo flowsheet Matheus Wengerd PT [facility] Start: 06-30-2023 Bamboo flowsheet Matheus Wengerd PT [facility] Start: 06-30-2023 End: 06-30-2023 ambulatory MATHEUS WENGERD Not Available Start: 06-27-2023 End: 06-27-2023 ambulatory MATHEUS WENGERD Not Available Start: 06-22-2023 End: 06-22-2023 ambulatory DEION Luís OLEAACH Not Available Start: 06-20-2023 End: 06-20-2023 ambulatory MATHEUS WENGERD Not Available Start: 06-16-2023 End: 06-16-2023 ambulatory CINDY DAHM Not Available Start: 06-14-2023 End: 06-14-2023 ambulatory CINDY DAHM Not Available Start: 06-12-2023 End: 06-13-2023 ambulatory Sean COPE Facility:[facility] Start: 06-12-2023 End: 06-12-2023 Patient encounter procedure Sean COPE [facility] Start: 06-09-2023 End: 06-09-2023 ambulatory MATHEUS WENGERD Not Available Start: 06-06-2023 End: 06-06-2023 ambulatory DEION OLEAACH Not Available Start: 06-01-2023 End: 06-01-2023 ambulatory MATHEUS WENGERD Not Available Start: 06-01-2023 End: 06-01-2023 ambulatory ANTONIO A FIDELINA Not Available Start: 05-31-2023 End: 05-31-2023 ambulatory SOUMYA LOMAX Not Available Start: 05-30-2023 End: 05-30-2023 ambulatory DEION D GUNDLACH Not Available Start: 05-24-2023 End: 05-24-2023 ambulatory ANTONIO A FIDELINA Not Available Start: 05-23-2023 End: 05-23-2023 ambulatory MATHEUS WENGERD Not Available Start: 05-19-2023 End: 05-19-2023 ambulatory DEION D GUNDLACH Not Available Start: 05-17-2023 End: 05-17-2023 ambulatory TEDDY POCOS Not Available Start: 05-08-2023 End: 05-09-2023 ambulatory Sean COPE Facility:[facility] Start: 05-08-2023 End: 05-08-2023 Patient encounter procedure Sean COPE [facility] Start: 04-29-2023 End: 05-01-2023 Evaluation and management of inpatient Sean COPE Facility[place] Start: 04-28-2023 End: 05-01-2023 [facility] Start: 04-27-2023 End: 04-28-2023 ambulatory Sean COPE Facility:CD:[id number] Start: 04-24-2023 End: 04-24-2023 ambulatory MATHEUS WENGERD Not Available Start: 04-18-2023 End: 04-19-2023 ambulatory MATHEUS WENGERD Not Available Start: 04-13-2023 End: 04-13-2023 ambulatory DEION D GUNDLACH Not Available Start: 04-12-2023 End: 04-12-2023 ambulatory TEDDY POCOS Not Available Start: 04-11-2023 End: 04-11-2023 ambulatory DEION D GUNDLACH Not Available Start: 03-27-2023 End: 03-28-2023 ambulatory Sean COPE Facility:[facility] Start: 03-27-2023 End: 03-27-2023 Patient encounter procedure Sean R PRISCA [facility] Start: 03-08-2023 End: 03-09-2023 ambulatory Yann Grant Pocos Facility[facility] Start: 03-08-2023 End: 03-08-2023 Patient encounter procedure Yann Grant Pocos [facility] Start: 02-07-2023 End: 02-07-2023 ambulatory Yann Grant Pocos Facility[facility] Start: 02-07-2023 End: 02-07-2023 Admission to same day surgery center Yann Grant Pocos [facility] Start: 01-16-2023 End: 01-17-2023 ambulatory Yann Grant Pocos Facility[place] Start: 01-16-2023 End: 01-16-2023 Patient encounter procedure Yann Grant Pocos [facility] Start: 01-12-2023 End: 01-13-2023 ambulatory XXXX NONE Facility:[facility] Start: 01-12-2023 End: 01-12-2023 Patient encounter procedure Estephania VILLANUEVA [facility] Start: 01-09-2023 End: 01-10-2023 ambulatory Matthew Dela Cruz Facility[place] Start: 01-09-2023 End: 01-09-2023 Patient encounter procedure Matthew Dela Cruz [facility] Start: 01-06-2023 ambulatory Yann Pocos Facility:[facility] Start: 12-30-2022 End: 12-31-2022 ambulatory XXXX NONE Facility:[facility] Start: 11-24-2021 End: 11-24-2021 Patient encounter procedure Matthew Dela Cruz [facility] Start: 05-15-2021 End: 05-16-[address] RANJEET CORNELL Facility:[facility] Procedures Date Procedure Procedure Detail Performing Clinician Start: 04-27-2023 Extracorporeal shock wave lithotripsy of calculus of kidney Sean COPE Start: 02-07-2023 Total knee replacement Yann Alvarez Start: 02-24-2020 Cardiac catheterization Matthew Dela Cruz [...] dilation of urethral stricture Sean COPE Start: 11-21-2016 Colonoscopy Matheus covington [employer] Start: 05-29-2005 Shoulder joint unsta ble (finding) Matthew Dela Cruz Comment on above: rotater cuff Start: 05-29-2003 Fracture of hand (disorder) Matthew Dela Cruz Start: 05-29-2001 Tonsillectomy Matthew hess Start: 05-29-1978 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) Matthew Dela Cruz Start: 05-29-1973 Bone structure of fe mur (body structure) Matthew Muñozarashemily 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 Start: 12-08-2023 Glaucoma screening Diabetes: R etinopathy Screening [facility] Start: 08-23-2023 End: 08-23-2023 Patient encounter procedure [facility] Start: 08-18-2023 Hemoglobin A1c measurement Diabetes: Hemoglobin A1C [facility] Start: 07-27-2023 End: 07-27-2023 ambulatory 07/27/2023 4:00 PM EST Treatment [facility] [address] [place] [id number] Deion Ramos, PT [address] [place] [address] [facility] Start: 07-25-2023 End: 07-25-2023 ambulatory 07/25/2023 4:00 PM EST Treatment [facility] PT [address] [place] [address] Matheus [place], AMY [facility] Start: 07-20-2023 End: 07-20-2023 ambulatory 07/20/2023 4:00 PM EST Treatment [facility] PT [address] [place] [address] Deion Ramos, PT [address] [place] [address] [facility] Start: 07-18-2023 End: 07-18-2023 ambulatory 07/18/2023 4:00 PM EST Treatment [facility] PT [address] [place] [address] Deion Ramos, PT [address] [place] [address] [facility] Start: 07-13-2023 End: 07-13-2023 ambulatory 07/13/2023 4:00 PM EST Treatment [facility] PT [address] [place] [address] Deion Ramos, PT [address] [place] [address] [facility] PT Start: 07-11-2023 End: 07-11-2023 ambulatory 07/11/2023 4:00 PM EST Treatment [facility] PT [address] [place] [address] Deoin Ramos, PT [address] [place] [address] [facility] Start: 07-06-2023 End: 07-06-2023 ambulatory 07/06/2023 4:00 PM EST Treatment [facility] PT [address] [place] [address] Deion Ramos, PT [address] [place] [address] [facility] PT Start: 07-04-2023 End: 07-04-2023 ambulatory 07/04/2023 4:00 PM EST Treatment [facility] PT [address] [place] [address] Deion Ramos, PT [address] [place] [address] [facility] Start: 06-30-2023 End: 06-30-2023 ambulatory 06/30/2023 7:30 AM EST Treatment [facility] PT [address] [place] [address] Matheus [place] [facility] Arrived [facility] PT Comment on above: Arrived Start: 1965 Screening for malign ant neoplasm of colon [facility] Immunizations Immunization Date Immunization Notes Care Provider Ivone leal 05-24-2023 Influenza, injectable, Madin Rose Canine Kidney, preservative free, quadrivalent Matheus [place] [facility] 03-29-2022 pneumococcal 20-valent conjugate vaccine Sean COPE [facility] 03-04-2022 influenza virus vaccine, unspecified formulation Sean COPE [facility] 03-09-2021 influenza virus vaccine, unspecified formulation Sean COPE [facility] 03-09-2021 SARS-CoV-2 (COVID-19 ) mRNA BNT-162b2 vax Sean COPE [facility] 08-28-2020 COVID-19, mRNA, LNP-S, PF, 30 mcg/0.3 mL dose Matthew Dela Cruz [facility] Comment on above: Reason for Medicatio n: Prophylaxis 08-07-2020 COVID-19, mRNA, LNP-S, PF, 30 mcg/0.3 mL dose Matthew Dela Cruz [facility] Comment on above: Reason for Medicatio n: Prophylaxis 03-30-2020 diphtheria, tetanus toxoids and pertussis vaccine Matheus [place] [facility] 03-30-2020 tetanus and diphtheria toxoids, adsorbed, preservative free, for adult use (5 Lf of tetanus toxoid and 2 Lf of diphtheria toxoid) Matheus [place] [facility] 03-02-2020 influenza virus vaccine, unspecified formulation Sean COPE [facility] Payers Date Payer Category Payer Worker's Compensation GENERIC WO RKERS' COMP GENERIC WORKERS' COMP [id number] 2022-Present [phone] [address] [place] [address] [id number] 2022 Worker's Compensation [id number] 2019 Unknown BCBS BCBS [id number] 2019-Present [phone] [address] [place] [address] [id number] .[id number] 1963 Unknown [id number] 2.16.840.1.675796.3.579.2 .593 1963 Unknown [id number] 2.16.840.1.065247.3.579.2 .72 1963 Unknown [id number] 2.16.840.1.404075.3.579.2 .1963 Unknown [id number] 2.16.840.1.396848.3.579.2 .727 1963 Unknown [id number] 2.16.840.1.586434.3.579.2 .72 1963 Unknown [id number] 2.16.840.1.349477.3.579.2 .727 1963 Unknown [id number] 2.16.840.1.841502.3.579.2 .727 1963 Unknown [id number] 2.16.840.1.198762.3.579.2 .727 1963 Unknown [id number] 2.16.840.1.995261.3.579.2 .727 11-1964 Unknown [id number] 2.16.840.1.408474.3.579.2 .1963 Unknown [id number] 2.16.840.1.910730.3.579.2 .1963 Unknown [id number] 2.16.840.1.741827.3.579.2 .1963 Unknown [id number] 2.16.840.1.027707.3.579.2 .1963 Unknown [id number] 2.16.840.1.989849.3.579.2 .1963 Unknown [id number] 2.16.840.1.099243.3.579.2 1963 Unknown [id number] 2.16.840.1.492507.3.579.2 .1258 1963 Unknown [id number] 2.16840.1.744122.3.579.2 .1258 1963 Unknown [id number] 2.16.840.1.916299.3.579.2 .1258 1963 Unknown [id number] 2.16.840.1.403535.3.579.2 .1258 1963 Unknown [id number] 2.16.840.1.659127.3.579.2 .1258 1963 Unknown [id number] 2.16.840.1.640580.3.579.2 .1258 1963 Unknown [id number] 2.16.840.1.045329.3.579.2 .1258 1963 Unknown [id number] 2.16.840.1.215678.3.579.2 .1258 1963 Unknown [id number] 2.16.840.1.100825.3.579.2 .1258 1963 Unknown [id number] 2.16.840.1.232590.3.579.2 .1258 1963 Unknown [id number] 2.16.840.1.336889.3.579.2 .1258 1963 Unknown [id number] 2.16.840.1.814971.3.579.2 .1258 1963 Unknown [id number] 2.16.840.1.594524.3.579.2 .1258 1963 Unknown [id number] 2.16.840.1.686918.3.579.2 .1258 1963 Unknown [id number] 2.16.840.1.114471.3.579.2 .1258 1963 Unknown [id number] 2.16.840.1.473631.3.579.2 .1258 1963 Unknown [id number] 2.16.840.1.022105.3.579.2 .1258 1963 Unknown [id number] 2.16.840.1.948795.3.579.2 .1258 1963 Unknown [id number] 2.16.840.1.521817.3.579.2 .1258 1963 Unknown [id number] 2.16.840.1.468455.3.579.2 .1258 1963 Unknown [id number] 2.16.840.1.248327.3.579.2 .1258 1963 Unknown [id number] 2.16.840.1.020885.3.579.2 .1258 1963 Unknown [id number] 2.16.840.1.646243.3.579.2 .1258 1963 Unknown [id number] 2.16.840.1.122481.3.579.2 .1258 1963 Unknown [id number] 2.16.840.1.475602.3.579.2 .1258 1963 Unknown [id number] 2.16.840.1.401721.3.579.2 .1258 1963 Unknown [id number] 2.16.840.1.860444.3.579.2 .1258 1963 Unknown [id number] 2.16.840.1.267985.3.579.2 .1258 1963 Unknown [id number] 2.16.840.1.121484.3.579.2 .1258 1963 Unknown [id number] 2.16.840.1.648674.3.579.2 .1258 1963 Unknown [id number] 2.16.840.1.083647.3.579.2 .1258 1963 Unknown [id number] 2.16.840.1.449549.3.579.2 .1258 1963 Unknown [id number] 2.16.840.1.296035.3.579.2 .1258 1963 Unknown [id number] 2.16840.1.595590.3.579.2 .1258 1963 Unknown [id number] 2.16.840.1.270804.3.579.2 .1258 1963 Unknown [id number] 2.16.840.1.849089.3.579.2 .1258 1963 Unknown [id number] 2.16.840.1.371961.3.579.2 .1258 1963 Unknown [id number] 2.16.840.1.914216.3.579.2 .1258 1963 Unknown [id number] 2.16.840.1.993020.3.579.2 .1258 1963 Unknown [id number] 2.16.840.1.881493.3.579.2 .1258 1963 Unknown [id number] 2.16.840.1.963122.3.579.2 .1258 1963 Unknown [id number] 2.16.840.1.615107.3.579.2 .1258 1963 Unknown [id number] 2.16.840.1.785776.3.579.2 .9 1963 Unknown [id number] 2.16.840.1.399680.3.579.2 .9 1963 Unknown [id number] 2.16.840.1.434569.3.579.2 .9 1963 Unknown [id number] 2.16.840.1.522613.3.579.2 .1258 1963 Unknown [id number] 2.16.840.1.568556.3.579.2 .1258 1963 Unknown [id number] 2.16.840.1.159610.3.579.2 .1258 1963 Unknown [id number] 2.16.840.1.323327.3.579.2 .9 1963 Unknown [id number] 2.16.840.1.323392.3.579.2 .9 1959 Unknown [id number] Social History Date Type Detail Facility Tobacco Cigarettes [facility] Comment on above: quit 29 yrs ago[place] [place]-1.5ppd Start: 12-01-2022 End: 05-24-2023 Sex Assigned At Male [facility] Start: 12-30-2022 End: 02-19-2023 Tobacco smoking status Ex-smoker (finding) [facility] Comment on above: quit 29 yrs ago[place] 1-1.5ppd Tobacco smoking status Never [facility] Comment on above: quit 29 yrs ago[place] 1-1.5ppd Start: 05-29-1980 End: 05-29-1989 History of tobacco use Current smoker [facility] Start: 05-29-1980 End: 05-29-1989 History of tobacco use Cigarette Smoker [facility] Start: 12-01-2022 End: 02-19-2023 Cigarettes smoked current (pack per day) - Reported 1 [facility] History of tobacco use Passive smoker [facility] Start: 02-19-2023 Tobacco use and exposure Smokeless tobacco non-user [facility] Start: 06-01-2023 Alcohol intake Current drinke r of alcohol (finding) [facility] How often to you hav e a drink containing alcohol? Monthly or less [facility] How many standard drinks containing alcohol do you have on a typical day? 1 or 2 [facility] How often do you hav e 6 or more drinks on 1 occasion? Never [facility] Start: 02-19-2023 Tobacco Comment Last smoked : > 10 years [facility] Start: 02-19-2023 Alcohol Comment Caffeine intak e: 1-2 cups per day [facility] Start: 1965 Sex Assigned At Not on file [facility] Medical Equipment Procedure Code Equipment Code Equipment Origin al Text Equipment Identifier Dates PCI Unknown 12/25 Non Biological Other FDA Start: 12-26-2019 PCI Unknown 12/25 Non Biological Other FDA Start: 12-26-2019 PCI Unknown 12/25 Non Biological Other FDA Start: 12-26-2019 PCI Unknown 12/25 Non Biological Other FDA Start: 12-26-2019 KNEE TOTAL ROBOT ARTHROPLASTY Pocos DO, Teddy [...] 12-26-2019 KNEE TOTAL ROBOT ARTHROPLASTY Pocos DO, Teddy [...] 12-26-2019 KNEE TOTAL ROBOT ARTHROPLASTY Pocos DO, Teddy [...] 12/25 Non Biological Other FDA Start: 12-26-2019 USE TO TEST SUGA R TWICE A DAY [id number] Start: 12-23-2021 USE TO TEST BLOO D SUGAR TWICE A DAY [id number] Start: 04-12-2022 Functional Status Date Assessment Result Facility 06-12-2023 Functional Status N/A [facility] 05-08-2023 Functional Status N/A [facility] 04-29-2023 Functional Status No [facility] 04-28-2023 Functional Status [facility] 03-27-2023 Functional Status N/A [facility] 01-16-2023 Functional Status No [facility] 01-12-2023 Functional Status No [facility] 11-24-2021 Functional Status N/A [facility] Clinical Notes 01-10-2023 to 06-12-2023 Note Date & Type Note Facility 06-12-2023 Hospital Discharge instructions Patient Education 06/12/2023 09:46:41 Kidney Stones, [id number] Kidney Stones Kidney stones are rock-like masses [...] Follow these instructions at home: Medicines Take blho-nsp-tspheif and prescription medicines only as told by [...] provider. Document Revised: 01/17/2022 Document Reviewed: 01/17/2022 [email or web address] Patient Education 2022 EXPO. Follow Up Care 05/08/2023 12:52:11 With:PRISCA ACOSTA, Sean Stovall, URL Address: [facility] [address] [place] [address] [phone] When: Unknown Comments:KIMBERLEY in 6 mos [facility] 05-08-2023 Hospital Discharge instructions Patient Education 05/08/2023 12:13:08 Kidney Stones, [id number] Kidney Stones Kidney stones are rock-like masses [...] Follow these instructions at home: Medicines Take anhw-jkp-cshdxum and prescription medicines only as told by [...] provider. Document Revised: 01/17/2022 Document Reviewed: 01/17/2022 [employer] Patient Education 2022 EXPO. Follow Up Care 05/01/2023 10:55:44 With:PRISCA ACOSTA, Sean Stovall, URL Address: [facility] [address] , [place] [address] [phone] When:Within 1 Month(s) [facility] Tomi 05-02-2023 Note Admission and Discha rge [...] lithotripsy performed by Dr. Prisca ahmadi at [facility] 12/1. Pt was admitted to the [...] 61.6 % Lymph Auto - 26.8 % [place] Auto - 8.9 % Eos Auto - 2.3 % Basophil Auto - 0.4 % Neutro Absolute - 3.1 E9/L Lymph Absolute - 1.3 E9/L [place] Absolute - 0.4 E9/L Eos Absolute - [...] - 280 mg/dL POC Device SN - [id number] POC User ID - [id number] POC Username - JOHANA SPAIN CBC w/ Auto Diff (04/30/2023) WBC - 5.0 E9/L RBC - 3.3 E12/L Hgb - 9.4 gm/dL Hct - 27.2 % MCV - 82.5 fL MCH - 28.5 pg MCHC - 34.5 gm/dL RDW - 13.7 % Platelet - 156.0 E9/L MPV - 8.1 fL Crossmatch (04/29/2023) Computer XM I (more content not included)... [facility] Comment on above: Result Comment: Elec [...] that it is safe. General instructions Take mxtl-vbr-qjbjrbe and prescription medicines only as told by [...] provider. Document Revised: 07/02/2021 Document Reviewed: 07/02/2021 [email or web address] Patient Education 2022 EXPO. Follow Up Care 04/28/2023 20:38:22 With:Sean COPE Address: [facility] [address], [place] [address]- Business (1) When:05/08/2023 11:00:00 With:ANTONIO KITCHEN Address: [address] [facility] [place] [address] When: Unknown [facility] 04-30-2023 Evaluation + Plan note Extrac [...] he will need to be transferred to [facility] for interventional radiology assistance. 2. 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 HTN (hypertension) (I10: Essential (primary) hypertension) Holding Losartan due to LUIS MIGUEL. 9. Kidney stones (N20.0: Calculus of kidney) s/p lithotripsy by Dr Cope on 04/27 at [facility] 10. Type 2 diabetes mellitus (E11.9: [...] Date:05/08/2023 11:00:00 AM Scheduled Provider:Sean COPE MD Location:[facility] Appointment Type:URO Office Visit Diagnostic Tests Pending * UA With Cult Reflex 04/28/23 [facility]12-02-2023 NoteBasic Information Admit Date/Time:04/28/2023 23:03 Chief [...] He is s/plithotripsy by Dr Cope at [facility] yesterday. Apparently had a lot of [...] 20:55:00) Lymph Auto: 22.8 % (04/28/23 20:55:00) [place] Auto: 8.2 % (04/28/23 20:55:00) Eos Auto: 0.6 % (04/28/23 20:55:00) Basophil Auto: 0.4 % (04/28/23 20:55:00) Neutro Absolute: 4.7 E9/L (04/28/23 20:55:00) Lymph Absolute: 1.6 E9/L (04/28/23 20:55:00) [place] Absolute: 0.6 E9/L (04/28/23 20:55:00) Eos Absolute: [...] mg/dL High (04/28/23 23:29:00) POC Device SN: [id number] (04/28/23 23:29:00) POC User ID: [id number] (04/28/23 23:29:00) POC Username: WILLIAM RICHTER (04/28/23 23:29:00) Assessment/Plan 1. Chest pain (R07.9: Chest pain, unspecified) Likely due to effects of below hematoma in conjunction with hypoperfusion from anemia with hx CAD Initial troponin negative Cycle troponins x4 2. Perinephric hematoma (S37.019A: Minor contusion of unspecified kidney, initial encounter) Complication for recent lithotripsy. Supportive care. Treat (more content not included)...[facility] Comment on above:Result Comment: Electronically Signed By: Danica Antonio MD\.br\Date and Time Signed: 04/29/23 00:36 [id number] Hospital Discharge instructions Patient Education 03/27/2023 09:38:53 Kidney Stones, Uhvu-ma-Ggkr Kidney Stones Kidney stones are rock-like masses [...] Follow these instructions at home: Medicines Take dhei-upy-kygffuw and prescription medicines only as told by [...] provider. Document Revised: 01/17/2022 Document Reviewed: 01/17/2022 [email or web address] Patient Education 2022 EXPO. Follow Up Care 01/06/2023 10:09:26 With:PRISCA ACOSTA, Sean Stovall, URL Address: [facility] [address], [place] [address] [phone] When: Unknown Comments:sched laser litho [facility] 09-12-2023 Evaluation + Plan noteExtracted from: Title:ANES Post General/Spinal Author:Deion Rodriguez Date:02/07/23 Plan Transfer/Discharge: Patient exhibiting no signs of N/V. Hydration status is adequate. Extracted from: Title:Deo Basic PRE Author:Curly Desouza DO Date:02/07/23 Plan [employer]esthesiologists (ASA) physical status classification: Class III. Anesthetic Preoperative Plan: Anesthesia General, and Monitored anethesia care. Regional Spinal, and Right Adductor Canal Block. Future Appointments Appointment Date:03/27/2023 09:00:00 AM Scheduled Provider:Sean COPE MD Location:[facility] Appointment Type:URO New Patient [facility]09-12-2023 Hospital Discharge instructions Patient Education 02/07/2023 [...] as possible. If the spirometer includes a health coach indicator, use this to guide you [...] provider. Document Revised: 08/03/2020 Document Reviewed: 08/03/2020 [email or web address] Patient Education 2022 EXPO. 02/07/2023 11:45:33 Knee Cryocuff Patient Instructions - FT (CUSTOM) 02/07/2023 06:54:39 [place] - Total Knee Arthroplasty. Revised 08/09/22. (Custom) [place], [place] [facility] DISCHARGE INSTRUCTIONS TOTAL KNEE [...] continue at home, possible with the assistant producer of Home Health Physical Therapy or in [...] weeks postop. Yann Alvarez, DO [facility] [address] [place], [place] [id number] Reviewed: 09-03 Revised 06/09 Follow Up Care 01/04/2023 15:37:47 With:Yann Alvarez Address: [address] [place] [address]- Business (1) When:03/08/2023 10:30:00 Comments:Appointment has already been scheduledCall for any problems. [facility]09-08-2023 Note [id number]:127[facility] 01-10-2023 NoteEchocardiology Procedure Exam Date/Time Accession # Ordering Dr. Rivera Transthoracic 01/09/2023 09:04 EDT [id number] Jose De Jesus ACOSTA, Matthew Gar CPT code [id number] Reason for Exam (Echo Transthoracic Complete) I25.10;CAD Coronary artery disease Report Version: 1 Study ID: [id number] [id number] Adult Echocardiogram Report Name: JANICE SMYTH Study Date: 01/09/2023, 8: 12 AM Patient Location: [facility] : 1965 (MM/DD/YYYY) Gender: Male Age: 57 Years Height: 185.42 cm BP: 162 / 93 mmHg Weight: 98.431 kg HR: 62 bpm BSA: 2.23 m? Ordering Physician: Matthew Dela Cruz Referring Physician: Matthew Dela Cruz Performed By: Kerri Paniagua RDCS Reason For Study: CAD Coronary artery disease History: CAD, SD, Stent x1, HTN, DM Interpretation Summary Ejection [...] by: Matthew Dela Cruz MD Transcribed by: [facility] Technologist: [facility] No data available for this section [facility] Future Appointments Appointment Date:01/16/2023 07:30:00 AM Scheduled Provider: Location:[facility] Appointment Type:Surgical PAT FT Appointment Date:01/16/2023 08:30:00 AM Scheduled Provider[facility] Type:CT Lower Extremity (FT) Appointment Date:02/07/2023 09:00:00 AM Scheduled Provider: Location:[facility] Appointment Type:Surgery FT Appointment Date:02/10/2023 09:30:00 AM Scheduled Provider:Estephania VILLANUEVA CNP [facility] Type:Cardiology Follow Up (FT) Appointment Date:03/27/2023 09:00:00 AM Scheduled Provider:Sean COPE MD Location:[facility] Appointment Type:URO New Patient Future Scheduled Tests Radiology* CT Lower Extremity w/o Contrast Right 01/16/23 [facility] Future Appointments Appointment Date:01/16/2023 07:30:00 AM Scheduled Provider: Location:[facility] Appointment Type:Surgical PAT FT Appointment Date:01/16/2023 08:30:00 AM Scheduled Provider: Location:.[facility] Appointment Type:CT Lower Extremity (FT) Appointment Date:02/07/2023 09:00:00 AM Scheduled Provider: Location:[facility] Appointment Type:Surgery FT Appointment Date:03/27/2023 09:00:00 AM Scheduled Provider:Sean COPE MD Location:[facility] Appointment Type:URO New Patient Future Scheduled Tests Radiology* CT Lower Extremity w/o Contrast Right 01/16/23 [facility] Future Appointments Appointment Date:02/07/2023 09:00:00 AM Scheduled Provider: Location:[facility] Appointment Type:Surgery FT Appointment Date:03/27/2023 09:00:00 AM Scheduled Provider:Sean COPE MD Location:[facility] Appointment Type:URO [facility] Future Appointments Appointment Date:03/27/2023 09:00:00 AM Scheduled Provider:Sean COPE MD Location:[facility] Appointment Type:URO [facility] Future Appointments Appointment Date:06/12/2023 09:15:00 AM Scheduled Provider:Sean COPE MD Location:[facility] Appointment Type:URO Office Visit Diagnostic Tests Pending * CBC w/ Auto Diff 05/08/23 [facility] evaluation + Plan note Future Appointments Appointment Date:12/15/2023 08:45:00 AM Scheduled Provider:Sean COPE MD Location:[facility] Appointment Type:URO Office Visit [facility] Hospital Discharge instructions No data available for this section [facility] No data available for this section [facility] Summary Purpose Family History No Family [...] DATE CREATED AUTHOR AUTHOR'S ORGANIZ ATION 07/05/2021 [facility] DATE CREATED AUTHOR AUTHOR'S ORGANIZ ATION 08/19/2021 [facility] dical Specialist DATE CREATED AUTHOR AUTHOR'S ORGANIZ ATION 07/06/2023 [facility] DATE CREATED AUTHOR AUTHOR'S ORGANIZ ATION 07/06/2023 [facility] dical Specialists EPIC Care Team (unrecognized sect ion and content) [employer] Relationship Specialty Start Date End Date Antonoi Kitchen DO [address] [place] [address] PCP - [place] [employer] 08/27/20 Antonio Kitchen DO [address] [place] [address] PCP - General Internal Medicine 12/01/22 FOR RECORDS PERTAINING TO PATIENTS WHO ARE [...] BE BASED ON THE PRIMARY CLINICAL RECORDS. [facility]. provides no warranty or guarantee of the accuracy or completeness of information in this document.
== END 2023-07-07 11:44 | disposition home or self-care (01) ==
LOC: RAD 11:44
PROVIDERS: PCP Internal Medicine; Visit Provider Urology
DX: N20.0 Calculus of kidney (principal); N28.1 Cyst of kidney, acquired
CPT/HCPCS: 74018; 76775

== ENCOUNTER 2023-12-19 08:54 | Outpatient (OUT) | payer BC, SELFPAY | END 2023-12-19 08:55 | disposition home or self-care (01) | LOC: PST 08:54 | PROVIDERS: PCP Internal Medicine; Visit Provider Surgery | DX: Z01.818 Encounter for other preprocedural examination (principal); Z12.11 Encounter for screening for malignant neoplasm of colon ==

== ENCOUNTER 2023-12-26 09:15 | Day surgery (SDC) | payer BC, SELFPAY ==
[2023-12-26 09:19] VITALS: BP 118/107; PULSE 63; TEMP 36.2; O2SAT 98; BMI 27.8
--- OUTSIDE RECORDS SUMMARY | 2023-12-26 09:27 | XMS_ITS | CCD ---
Author Organization [facility] Care Team Providers Care Press Operator Assistant Name Role Phone BEDOCS, DR NEAL Kuhn Attending Unavailable BEDOCS, DR NEAL Kuhn Consulting Unavailable BEDOCS, DR NEAL Kuhn Admitting Unavailable MISC, DR OLIVER Primary Care Unavailable ANTONIO KITCHEN Primary Care Physician Unavail able Antonio Kitchen DO Unavailable Antonio Kitchen DO Primary Care Provider Antonio Kitchen Primary Care Unavailable Leydi Lemons Attending Unavailab Leydi Malcolm Admitting Unavailab le Yann Atwood Admitting Unavailable Pocmaribell, Yann Grant Attending Unavailable PocYann reyna Referring Unavailable NONE, XXXX Referring Unavailable Matthew Dela Cruz Admitting Unavaila Matthew Geronimo Attending Unavaila ble NONE, XXXX Referring Unavailable Estephania VILLANUEVA Attending Unavailable Estephania VILLANUEVA Admitting Unavailable PocYann reyna Attending Unavailable PocYann reyna Referring Unavailable PocYann reyna Admitting Unavailable Sean COPE Attending Unavailable Sean COPE Attending Unavailable Sean COPE Attending Unavailable Sean COPE Attending Unavailable ANTONIO KITCHEN Referring Unavailable Sean COPE Attending Unavailable Matthew Dela Cruz Admitting Unavaila Matthew Geronimo Consulting Unavaila Matthew Geronimo Attending Unavaila Matthew Geronimo Referring Unavaila ble Matthew Dela Cruz Consulting Unavaila Matthew Geronimo Consulting Unavaila ble Yann Atwood Attending Unavailable PocYann reyna Admitting Unavailable PocYann reyna Attending Unavailable PocYann reyna Admitting Unavailable Sean COPE Consulting Unavailable Edward Castillo Attending Unavailable Danica Antonio Admitting Unavailable MD Sean COPE R Consulting Unavailable COPE, Sean R Consulting Unavailable COPE, Sean R Consulting Unavailable COPE, Sena R Consulting Unavailable COPE, Sean R Consulting Unavailable COPE, Sean R Consulting Unavailable COPE, Sean R Consulting Unavailable COPE, Sean R Consulting Unavailable COPE, Sean R Consulting Unavailable COPE, Sean R Consulting Unavailable COPE, Sean R Consulting Unavailable COPE, Sean R Consulting Unavailable COPE, Sean R Consulting Unavailable [place] Xuan ANTHONY Attending U navailable WENGERDMATHEUS Attending Unavailable POCOS, YANN Grant Referring Unavailable FIDELINA, ANTONIO Grant Attending Unavailable FIDELINA, ANTONIO Grant Referring Unavailable GUNDLACHDEION Attending Unavailable POCOS, YANN Grant Referring Unavailable GUNDLACH, DEION Staley Attending Unavailable POCOS, YANN Grant Referring Unavailable ELLIOTTMOND, SOUMYA Sanchez Attending Unavailable FIDELINA, ANTONOI Grant Referring Unavailable DORA CHEUNG Attending Unava ilable POCOS, YANN Grant Attending Unavailable WENGERDMATHEUS Attending Unavailable POCOS, YANN Grant Referring Unavailable GUNDLACHDEION Attending Unavailable POCOS, YANN Grant Referring Unavailable WENGERDMATHEUS Attending Unavailable POCOS, YANN Grant Referring Unavailable DAHM, CHICHI Attending Unavailable POCOS, YANN Grant Referring Unavailable DAHM, CHICHI Attending Unavailable WENGERDMATHEUS Attending Unavailable POCOS, YANN Grant Referring Unavailable GUNDLACHDEION Attending Unavailable POCOS, YANN Grant Referring Unavailable GUNDLACHDEION Attending Unavailable POCOS, YANN Grant Referring Unavailable WENGERDMATHEUS Attending Unavailable POCOS, YANN Grant Referring Unavailable WENGERDMATHEUS Attending Unavailable POCOS, YANN Grant Referring Unavailable WENGERDMATHEUS Attending Unavailable POCOS, YANN Grant Referring Unavailable WENGERDMATHEUS Attending Unavailable POCOS, YANN Grant Referring Unavailable DAHM, CHICHI Attending Unavailable POCOS, YANN Grant Referring Unavailable POCOS, YANN Grant Referring Unavailable POCOS, YANN Grant Attending Unavailable GUNDLACHDEION Attending Unavailable POCOS, YANN Grant Referring Unavailable DAHM, CHICHI Attending Unavailable POCOS, YANN Grant Referring Unavailable GUNDLDEION LEA Attending Unavailable POCOS, YANN Grant Referring Unavailable POCOS, YANN Grant Attending Unavailable POCOS, YANN Grant Attending Unavailable POCOS, YANN Grant Referring Unavailable FIDELINAANTONIO Attending Unavailable LEYDI LEMONS Attending Unavailable YANN ATWOOD Attending Unavailable YANN ATWOOD Referring Unavailable DEION HAMLIN Attending Unavailable YANN ATWOOD Referring Unavailable YANN ATWOOD Referring Unavailable BARBARA PERSAUD Attending Unavailable Antonio Kitchen Primary Care Unavailable Xuan Devine Admitting Unavailable Xuan Devine Attending Unavailable Antonio Kitchen Primary Care Unavailable Xuan Devine Admitting Unavailable Xuan Devine Attending Unavailable TARUN SORIA Attending Unavailable Antonio Kitchen Primary Care Unavailable TARUN SORIA Admitting Unavailable Allergies Allergy Classification Reported Allergen(s) Allergy Type Date of Onset Reaction(s) Facility (2 sources) HYDROcodone; Translations: [HYDROcodone] Drug Allergy [facility] Repository (7 sources) HYDROcodone; Translations: [hydrocodone] Drug Allergy [facility] (1 source) HYDROcodone Drug Allergy 01-03-2019 [facility] Repository Medications Current Medications Medication Drug Class(es) Dates Sig (Normalized) Sig (Original) acetaminophen 325 mg / HYDROcodone bitartrate 5 mg oral tablet (1 source) Opioid Agonist Start: 02-09-2023 [place] 325 mg-5 mg oral tablet See Instructions, for pain, 40 tab(s), Refill(s) 0, 1 - 2 po q4-6h prn pain Dx: M17.11, Z96.651 Duration: 7 days, [id number], 188, cm, 01/16/23 7:42:00 EDT, Height/Length Dosing, 97, kg, 01/16/23 7:42:00 EDT, Weight Dosing Start Date: 02/09/23 Status: Ordered acetaminophen 325 mg / oxyCODONE hydrochloride 7.5 mg oral tablet (4 sources) Opioid Agonist Start: 04-30-2023 Percocet 7.5/325 oral tablet 2 tab(s), Oral, q6hr for pain, 20 tab(s), Refill(s) 0, [id number], 185, cm, 04/28/23 20:47:00 EST, Height/Length Dosing, 77.2, kg, 04/29/23 10:14:00 EST, Weight Dosing Start Date: 04/30/23 Status: Ordered amLODIPine 5 mg oral tablet (13 sources) Dihydropyridine Calcium Channel Castro Start: 05-01-2023 take 1 tablet by mouth twice daily amLODIPine 5 mg Tab 5 mg = 1 tab(s), Oral, BID, # 60 tab(s), Refills(s) 0, [id number], 185, cm, 04/28/23 20:47:00 EST, Height/Length [...] Daily, # 90 tab(s), Refills(s) 3, Pharmacy: [facility], 186, cm, 11/24/21 14:21:00 EDT, Height/Length Dosing, 98, kg, 11/24/21 14:21:00 EDT, Weight Dosing Start Date: 12/16/22 Status: Ordered Start: 01-26-2021 take 1 tablet by allen th once daily Aspirin 81 mg Tab-Chew 81 mg = 1 tab(s), Oral, Daily, # 90 tab(s), Refills(s) 3, [id number], 186, cm, 10/20/20 11:38:00 EDT, Height/Length Dosing, 96, kg, 10/20/20 11:38:00 EDT, Weight Dosing Start Date: 01/26/21 Status: Ordered atorvastatin 80 mg oral tablet (20 sources) HMG-CoA Reductase Inhibitor Start: 09-07-2021 take 1 tablet by mouth in the morning atorvastatin (Lipitor) 80 MG tablet Take 80 mg by mouth in the morning. 0 06/06/2022 Active Blood Glucose Monitoring Suppl (ONE TOUCH ULTRA 2) w/Device kit (9 sources) Start: 12-23-2021 Blood Glucose Monitoring Suppl (ONE TOUCH ULTRA 2) w/Device kit USE TO TEST SUGAR TWICE DAILY 0 12/23/2021 Active Fish Oils (11 sources) Start: 12-26-2019 take 500 mg by mouth once daily Fish Oil 500 mg, Oral, Daily, Refill(s) 0, Prophylaxis Start Date: 12/26/19 Status: Ordered Start: 12-26-2019 Fish Oil Oral, Refill(s) 0 Start Date: 12/26/19 Status: Ordered 1 ml ixekizumab 80 mg/ml auto-injector (12 sources) Interleukin-17A Antagonist Start: 10-20-2022 Taltz 80 [...] Anxiety, # 15 tab(s), Refills(s) 0, Pharmacy: [id number], 185.4, cm, 02/21/20 20:48:00 EDT, Height/Length Dosing, 93.7, kg, 02/21/20 20:48:00 EDT, Weight Dosing Start Date: 02/24/20 Status: Ordered losartan potassium 100 mg oral tablet (18 sources) Angiotensin 2 Receptor Castro Start: 09-23-2022 take 1 tablet by mouth once daily losartan 100 mg Tab 100 mg = 1 tab(s), Oral, Daily, # 90 tab(s), Refills(s) 2, Pharmacy: [id number], 188, cm, 01/16/23 7:42:00 EDT, Height/Length Dosing, 97, kg, 01/16/23 7:42:00 EDT, Weight Dosing Start Date: 03/22/23 Status: Ordered Start: 09-29-2021 take 1 tablet by allen th once daily losartan 100 mg Tab 100 mg = 1 tab(s), Oral, Daily, # 90 tab(s), Refills(s) 0, Pharmacy: [facility], 186, cm, [...] Ordered metFORMIN hydrochloride 500 mg oral tablet (20 sources) Biguanide Start: 12-26-2019 metformin 500 mg Tab Refills(s) 0 Start Date: 03/27/23 Status: Ordered Multivitamins and Minerals (11 sources) Start: 12-26-2019 take 1 tablet by [...] attention, # 30 tab(s), Refills(s) 0, Pharmacy: [id number], 185.4, cm, 02/21/20 20:48:00 EDT, [...] Daily, # 30 tab(s), Refills(s) 0, Pharmacy: [id number], 186, cm, 03/10/20 10:58:00 EDT, Height/Length Dosing, 93, kg, 03/10/20 10:58:00 EDT, Weight Dosing Start Date: 03/10/20 Status: Ordered PARoxetine hydrochloride 10 mg oral tablet (20 sources) Serotonin Reuptake Inhibitor Start: 10-13-2020 PARoxetine (Paxil) 10 MG tablet Indications: Anxiety and depression (CMS/HCC) TAKE 1 TABLET DAILY IN THE MORNING 90 tablet 3 04/18/2023 Active semaglutide 14 mg oral tablet (20 sources) Start: 03-16-2023 take 1 tablet by [...] Start Date: 11/24/21 Status: Ordered Taltz Autoinjector (11 sources) Start: 09-10-2020 Taltz Autoinje ctor 80 mg, SubCutaneous, q4wk, Refills(s) 0, Other (see comment) Start Date: 09/10/20 Status: Ordered Start: 09-10-2020 Taltz Autoinje ctor Refills(s) 0 Start Date: 09/10/20 Status: Ordered Vitamin B6 100 mg Tab (8 sources) Start: 01-16-2023 take 1 tablet by mouth once daily Vitamin B6 100 mg Tab 100 mg = 1 tab(s), Oral, Daily, Prophylaxis Start Date: 01/16/23 Status: Ordered Vitamin D (3 sources) Start: 10-13-2020 Vitamin D 50,0 00 International_Unit, Oral, Daily, Refills(s) 0 Start Date: 10/13/20 Status: Ordered Completed/Discontinued Medications Medication Drug Class(es) Dates Sig (Normalized) Sig (Original) latanoprost 0.05 mg/ml ophthalmic solution (17 sources) Prostaglandin Analog Start: 01-16-2023 latanoprost Opth [...] unspecified] Onset: 04-29-2023 Episodic Acute myocardial infarction (16 sources) Acute ST segment elevation myocardial infarction; Translations: [Myocardial infarction] Onset: 12-26-2019 12-26-2019 Chronic Acute posthemorrhagic anemia (1 source) Acute posthemorrhagic anemia; Translations: [Acute posthemorrhagic anemia] Onset: 04-28-2023 Episodic Allergic reactions (1 source) Chronic radiodermatitis; Translations: [CHRONIC RADIODERMATITIS] Onset: 05-20-2021 Episodic Anxiety disorders (6 sources) Anxiety; Translations: [Anxiety disorder] Onset: 04-28-2023 03-20-2023 Chronic Asthma (9 sources) Asthma without status asthmaticus; Translations: [Unspecified asthma, uncomplicated] Onset: 07-15-2020 12-30-2022 Chronic Coronary atherosclerosis and other heart disease (20 sources) Coronary arteriosclerosis; Translations: [Coronary atherosclerosis] Onset: 12-23-2021 03-10-2020 Chronic Crushing injury or internal injury (3 sources) Contusion of kidney; Translations: [Minor contusion of unspecified kidney, initial encounter] Onset: 04-28-2023 Episodic Diabetes mellitus without complication (20 sources) Type 2 diabetes mellitus; Translations: [Type 2 diabetes mellitus without complication] Onset: 06-04-2019 12-26-2019 Chronic Disorders of lipid metabolism (9 sources) Raised low density lipoprotein cholesterol; Translations: [Pure hypercholesterolemia, unspecified] Onset: 12-30-2022 12-30-2022 Chronic Essential hypertension (20 sources) Hypertensive disorder; Translations: [Essential hypertension] Onset: 11-01-2016 01-16-2023 Chronic Glaucoma (8 sources) Glaucoma 01-16-2023 Chronic Hyperplasia of prostate (17 sources) Benign prostatic hypertrophy without outflow obstruction; Translations: [Benign prostatic hyperplasia without lower urinary tract symptoms] Onset: 12-30-2022 Chronic Mood disorders (8 sources) Depressive disorder 01-16-2023 Chronic Osteoarthritis (17 sources) Arthritis; Translations: [Osteoarthritis] 01-16-2023 Chronic Other aftercare (1 source) Encounter for follow-up examination after completed treatment for malignant neoplasm; Translations: [ENC F/U EX AFTR CMPL TX MALIG NEOPL] Onset: 05-20-2021 Episodic Other aftercare (3 sources) Long-term current use of aspirin; Translations: [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] Onset: 03-27-2023 Episodic Other connective tissue disease (9 sources) History of total knee arthroplasty; Translations: [Presence of right artificial knee joint] Onset: 02-17-2023 02-17-2023 Chronic Other connective tissue disease (3 sources) Artificial knee joint present; Translations: [Presence of right artificial knee joint] 07-06-2023 Chronic Other connective tissue disease (1 source) Other bursal cyst, left hand; Translations: [OTHER BURSAL CYST LEFT HAND] Onset: 05-20-2021 Episodic Other connective tissue disease (1 source) Other symptoms and signs involving the musculoskeletal system; Translations: [Other symptoms and signs involving the musculoskeletal system] Onset: 08-03-2023 Episodic Other diseases of kidney and ureters (2 sources) Hematoma of kidney 06-12-2023 Chronic Other gastrointestinal disorders (1 source) Retroperitoneal hematoma; Translations: [Retroperitoneal hematoma] Onset: 04-28-2023 Episodic Other gastrointestinal disorders (1 source) Constipation, unspecified; Translations: [Constipation, unspecified] Onset: 04-29-2023 Episodic Other inflammatory condition of skin (4 sources) Psoriasis vulgaris; Translations: [PSORIASIS VULGARIS] Onset: 05-15-2021 Chronic Other inflammatory condition of skin (5 sources) Plaque psoriasis 03-20-2023 Chronic Other inflammatory condition of skin (14 sources) Psoriatic arthritis; Translations: [Arthropathic psoriasis, unspecified] Onset: 10-31-2016 03-20-2023 Chronic Other nervous system disorders (1 source) Abnormal gait; Translations: [Unspecified abnormalities of gait and mobility] 07-10-2023 Episodic Other non-traumatic joint disorders (4 sources) Pain in right knee; Translations: [Pain in joint, lower leg] 07-06-2023 Episodic Other skin disorders (1 source) Other seborrheic keratosis; Translations: [OTHER SEBORRHEIC KERATOSIS] Onset: 05-20-2021 Episodic Skin and subcutaneous tissue infections (2 sources) Furuncle of left lower limb; Translations: [Furuncle of right lower limb] Onset: 05-20-2021 Episodic Spondylosis; intervertebral disc disorders; other back problems (9 sources) Arthritis of lumbosacral spine; Translations: [Spondylosis without myelopathy or radiculopathy, lumbosacral region] Onset: 01-03-2023 01-03-2023 Chronic Spondylosis; intervertebral disc disorders; other back problems (3 sources) Lumbar radiculopathy; Translations: [Radiculopathy, lumbar region] 07-06-2023 Episodic Unclassified (5 sources) Long-term current use of aspirin 03-27-2023 Past or Other Problems Problem Classification Problem Date Documented Date Episodic/Chronic Calculus of urinary tract (9 sources) Kidney stone; Translations: [Calculus of kidney] Onset: 03-27-2023 Episodic Complications of surgical procedures or medical care (1 source) Postprocedural hematoma of a genitourinary system organ or structure following a genitourinary system procedure; Translations: [N99.840] Onset: 04-29-2023 Episodic Diabetes mellitus without complication (11 sources) Diabetes mellitus without complication 12-26-2019 Melanomas of skin (6 sources) Personal history of malignant melanoma of skin; Translations: [History of malignant melanoma of the skin] Onset: 05-20-2021 03-20-2023 Episodic Nonspecific chest pain (9 sources) Chest pain; Translations: [Chest pain, unspecified] Onset: 04-28-2023 01-16-2023 Episodic Other aftercare (5 sources) Long-term current use of anticoagulant 03-20-2023 Episodic Other ear and sense organ disorders (9 sources) Impacted cerumen in right ear; Translations: [Impacted cerumen, right ear] Onset: 12-02-2022 12-02-2022 Episodic Other non-traumatic joint disorders (9 sources) Hip pain; Translations: [Pain in right hip] Onset: 01-03-2023 01-03-2023 Episodic Results Test Name Value Interpretation Reference Range Facility Coding Summaryon 12-20-2023 Coding Summary HTMLBase 64 PqamjicwHJm8nPa+PGhlY WQ+BE0TIFTqN18bhFVnxV 6rR6FLDXxYEpymYNYMPOl IYnQszeLzLJ7kzUHaDJDf IC8+XP6wOOAoKzycmIKhs 6Z1kLB9V99xrx9gLYclvN K5QCKeQpPaeazpt2mmiYq 6IDcuNmluOyBt XQZdqG15XIY1eH84Bt57w UTptMMdp4nnjHf9DvMmSV KrCFY3jEkrGJesr4FvWGH oC22euOIfq9P8 WKSijYeidXPcWwJxaDJ1d X0eYKybedlmv7ifamdgTo v7fc75vCKxa2J9gMK5N8O adjX4RHPnqCCh DhslgCBQnM3usxdxm4dpi tdxJaVwCKNpWVi4OMo4XH VjnQkjUvUcUW40JHT9RUH dwaRtT7WnBJWv qOdrJjP2f1K0Rs0SN1DWR godE7OYQLHNNVzjmOH+PC 22rd81T7EpTmlcFwr1URO qAOE1rEL4gV5g LIZkKVioj4V0gDE0X9Cou bGkcj9ig7yaVKSjPIwsP6 4jvBTfv3I0HSNhxHK5GKV dkAczAjEudR04 Oyc+HMAesUvcq4NwIrrsj 9fjq5regFe5PiwbFXEdbr GvfEzfGFH7g5UuNp5zCQO rzCH5hXZ7mH7a FtBrVyR3GOqpH748NbIxj CPrMmknS92eF4JghNN+PH RpVcl5WFEwlRptDW9bY9M hZGRpbmctbGVm hSvsUY7bRYDhzwetYCFzp Q1dLQDjU8h0ImCqKtU3BZ coT6StATUuecwlNb44bY0 vKlRxMoH0VZzh S6ZmtjP7EZAoqFEqSRjlP AW5C04vz6Y8PCVbMFCnCE K1tRW4oL2ryQnqeotcwDN mdDsgdmVydGlj EAalAKkfN106ZIAdeVqoR kNvZGluZyBEYXRlOiAgMD cvMjQvMjAyNDwvdGQ+PHR dNZA4aIqrIUWw wWCbGIxtUr9ojBxnrPqcO H6gCNHyhtqjKBRgeU7lVW AdgGAxcMgbLL4xOBDhfkn pj076ZtCsBRV4 WLGraFYwZ4GpiX1fFqEzM DMeTSMxT3GxyGMjGHmjU5 39CLutKxU9VMTwenNdU8E sLWFsaWduOiB0 r3F9Mp6Ob8FvosowS9Aet RXgUiOyMxtuCVt1F6PdYp wvdHI+UW59SJRrCK99LUf 4TLC5sSzfZZha GUMwT5LqnI2vYqQbJYHqB GRkOyc+PHRhYmxlIHdpZH RoPScxMDAlJyBzdHlsZT0 eBs7oUAUwDJGj pIpifPHwIrOwj1fhJYRtS ZghAI0pjLheU6FzkWO7SG Ada3s8Wo77X96dW2IyrDV +DYXuuTD7vJA9 iA0cQvMsMwH7PYtqF907B eEusLCkOipsb8ozj5omuM z0UtV7YAQljvEobIxgQJR 1i9CbBm93U02o IHdpZHRoPSIxNSUiIHZhb Qikwh6iyQ3iHj3+PGNvbC Y9dVU2yZ4lPvZxJjR0AKn hF565ZaZfdMLz Dinuy6xpf1uivUa7NnNcD QWwfkDngFryKXY5b4KoUk 99R0OipYsic0GeDqi8bv8 0oVZtf8X4vMO3 Q8CdROOjasdznFPlcPsiK U6nNOKwdhvpYWRjxK7lFD BaY0m9ZaAwInC5EOvsR6J bgpV3MJQtjDUk MWDwiSVCdK1lbzzhm3vxt fesZxGlMYUtDQu2JUf8AB FooNgoRmHlKCI9XhJ2RRX 9tVUvxS0ngPxn kvplkD1tGwt+BBL4gWTcz PNRWN0xKcqmfFK+PHRkIH Q0tFavPRvnHPEiwG1uFCJ cH8c8GkUfRnH0 RWftD1OdotI1JBUqqIEuB MGilTGShA1nobtti4vjyk xoWpRtXCIfWFk5AQr3LSP saWduOiBsZWZ0 HsF4PMR5yPRwzS5ztZcwq hfzlN3hFzj+QmlydGggRG I8PJw6D0JpWen9SAYipIh pNN2owLYvJIyr Ys2mqMudnAwnJC7pEKTto jhpt959UaWmz3cbQSWinU OtKLsjAHD4B85lq0V3JEI dFOPyNQG0yLK3 lD2mwDwscztziMJdyBckk kNuhGkxBKmtCJipD980YP KvfIspIcEoBDk4D1EcFmp 8VDIbgTtsNR8q vIUzOEouWe2nlVrhtIsxP E7aMTDlrmedh866HsSev3 suRNEjbEJqLGvbVII6T05 bq1O5NIUgJSWd MOE7kQB9dZ1ukIefgnxys GVmdDsgdmVydGljYWwtYW oqN158DILzvShdKzMbvLf 6T3RnZus8QVTg eTwfDX0vgEZrDDdlIe2ly BbnbEbzXE3kMMAoxrkwg1 60LfAel6umVJXimLNfZHa eMXB4X27om2O1 ZCOtOYCcAPD6pEE1yS1uv GlnbjogbGVmdDsgdmVydG gnACfwBErxE932KHNgmId nPlBhdGllbnQg BWhjUKh7L4BoEpwgrIL+P G54IQEcOA76eYWpoAHbq9 fqwNp3XkKcPAGnIXX3yAp qLCdbc0JqJFAf R35qzIBgf3T9RHGqlCceb LTnIfBgmOW3bL6cVHaswr thj3cqkaaqMhwej3ongv4 0vT47H07uGSgh ZHRoPSIzMCUiIHZhbGlnb j2gdZ6vJm2+RVWlgJI6jH G9iV1mPBTjOjI7SJlxP04 9InRvcCIvPjxj b8law2pwuRe0NbA1RVObz bXznSskZHO5l7GfCk33N2 9sIHdpZHRoPSIyMCUiIHZ heSywse5omI5d Ii8+LIKapRX2wDO1gX4kV zXcCgI8FQxdY267EoDogB PkJvfzB55yG6JtdYR+PHR mIrw6YMKdyHfh CI5mnBCoHDmyPx1gXWJ0M pKrRrQqDFciV2TgBQWgyu husewxkQB7GULmVEPsuS5 6Ch7taZsfINJv bQUYfN9udebhn8hoirroU kKxHEVuLNr1VIy4SGFewQ ueSvEpJMW9GnF9CVQ7tZC gwG8jzFxwebdx dX5nH6BwFVGcsfoaPw83r F5vCbUlJaC1VMadGih+U0 IXWDfZWefwYiCWJMT2Z0F cIyl0CJNozOry JO0vdXPjGCdxIi3biHujs OraDX7nLPVguppkXZMnmC 0hMISwvDIedGirSX8wPAL wbjhwc401EpWk XAT0JWYpxNNiT8SpsY5aF hVzQEYjZEHdM2UikATbOS ciX046IKgxApO5ORLxazJ vH4QcBFVcoImx XpZ4a0J2Pf0qHr1eSD3dV KY3AL46AR62gAPoe7H4uD Z9Q4TfLOHiczlogqkfxBF 5LORlJTYfdE55 hARhMXfaYa2jc9K0n609R OMbFHOgnP72Jo2rmKyoNZ SgtYDVeI1xirhja2rvqqn gIzAwMDAwMDt0 NWa6NNUppSauLuNpSRZ0J hX8SKY8wPKaaU5bwSwixa exvC2dUig+NjAgWWVhcnM 9C8BmTtn6DZNs pUqzFD2aiAZxHRylBm9yo VlnjHhkOR1oVLXaijqzEN IdmX0wDXUqnFIylBgsPD8 uWPCefdisi971 McIySNB0HKJtbXUsQ8Zpi V3rUgJnMNFlZULkQ9NjbB CaNThiV247DGipFlN1OKK tmhAvN5VjSYRi aGdfArY7c0R7Jr8JOTmYJ F32OC19aSMeo9J6zHT1W7 TeXHMofookhwkmvJI3YII vNAXuwT34fXFd BIasVu5yg7M0q758ZFQdK QKvsA90Bp6rtBuqNAGdzT AZjD2akedws8iunohaIbK yIZQvPQn9TRm3 FPZzmQdyXhXjZUW1RoG3Z AB5xAHyhR2cbLbodtthbF 9wOyc+YLA9LRM9itzeoug 8D7AsXrjdePD+ CP53MFQcMA49lEXahWYnq 5yaqHy5UjEgGGFyYHE9qX vnNUmvh4MiCWBvD03feIO jd3O8AMGanVyw eQZnSrKuzSP7eW8nUAmhm twgn2coizaoKyrwq1bmyc 58nK40C64aFTsdVQHdIVV zMCUiIHZhbGln pb9dxV7lZh2+OYLpkBZ3f FL4jP4kQxCwQbK0FUoyO3 90MhIbsTBiCjzjh8uyt6y uzTj7YcGeJDNw zxEebHxhJEB4c7GoSt24K 29sIHdpZHRoPSIyMCUiIH LvuCynii7sjA8kZv7+PC9 sy0ohgf87hP92 dHI+OTSgVPT8dFomEUmlX WJdfO8fGSsyEoU7FBUvRe MivK17cDVlBHepEl2awKf egErfJB3zRUQc grbfe186YpTpo2fvIFVws CDyOIeoGLS6T66yj1R9TJ XnCJSsQPX4kJE7iJ8ekUz nbjogbGVmdDsg gePnsEylCKzxQYdpD452U OYjwJpdPoDkkCNwZ3ukan RANG1oUiyywGG+PHRkIHN 0eWxlPSdwYWRk gI3cNAHjM2w2OtXuTcO6Q XbbQ2DhdjH3UCFgyUBsRD KbcPNThI4fbebzl1ctsws gIzAwMDAwMDt0 EZo7JBCswBhuSfFgGKV8A jQ4AIM8rTGdxC9rdYzsib eumX9cRjv+RklOOjwvdGQ +JXYzFDU8iSfa HOvhDVUlvA4sLNPxN3c9D bJuEiB6GPexM0ZtdkL0QR ZkfOTlAQNgsINKkU2duzt ca6jtfspeSnDu SKKjASh3CAy8XSKjdFirL uEdFTS8PfJ6BWI8pKAqwT 9eeLjnyafobB0iOjp+TVJ OOjwvdGQ+PHRk UBV4fHzmFLliCDScuD8jR RQkC5n8XbGlWqN4ZNhsA0 LkadC7GQGmtLIlNMHdzLF EnS7wqywvt2fk dtaeHfZhEIYbHVy1SXb7C TSimBryLaYfCUU6XyZ4FJ V9oNEsgF8hpMuhedsscC1 wOyc+XGK0BIA6 NZ22GI50L8CcRsjtdZBkc +PHRhYmxlIHdpZHRoPS izVXWdHyHryFtpPS5sFc7 yZGVyLWNvbGxh cHN (more content not included)... [facility] Consent Formson 12-18-2023 Consent Forms [id number] [facility] Progress Note - Nurseon 11-27 Progress Note - Nurse Patient left voicemail notifying office that he received great pain relief > 80% after MBB on Monday. Patient reports the pain has begun to return and the pain seems worse that it was before now that the medication has worn off. [Electronically Signed on: 12/18/2023 10:17 EDT] Heidi Casas RN [Verified on: 12/18/2023 10:17 EDT] Heidi Casas RN [facility] Inpatient Patient Summaryon 12-15-2023 Inpatient Patient Summary [address] [address] Patient Discharge Instructions Name: JANICE SMYTH DOB: 1965 Patient Address: [address] [place] [address] Primary Care Provider: Name: Antonio Kitchen DO After you are discharged if you find you have any questions, please, call [phone] ext [phone] to speak to a nurse. Discharge Diagnosis: Prescription Information: If you have been given a prescription for narcotics, seek immediate medical attention if you have any difficulty breathing or any sudden status changes such as confusion and sleepiness. If you or anyone you know is experiencing suicidal thoughts, mental health, alcohol and/or drug addiction problems; contact the [facility] 19/12 Crisis Hotline -Text 4HLFY to 500575. If you received any narcotics, sedation, or any other medication that causes drowsiness for the next 24 hours, unless otherwise directed: ? Do not drive a car. ? Do not operate machinery such as power tools, lawn mowers, drills, sewing machines, or stoves ? Avoid alcoholic beverages and drugs for allergies, nerves, or sleep ? Do not make important personal or business decisions or sign any legal documents [facility] would like to thank you for allowing us to assist you with your healthcare needs. The following includes patient education materials and information regarding your injury/illness. JANICE SMYTH has been given the following list of follow-up instructions, prescriptions, and patient education materials: Follow-up Instructions Medications During the course of your visit, your medication list was updated with the most current information. The details of those changes are reflected below: Medications to Continue That Have Not Changed Other Medications atorvastatin (atorvastatin 80 mg oral tablet) TAKE 1 TABLET BY MOUTH AT BEDTIME. ezetimibe (ezetimibe 10 mg oral tablet) TAKE 1 TABLET BY MOUTH EVERYDAY AT BEDTIME. gabapentin (gabapentin 100 mg oral capsule) TAKE 1 CAPSULE BY MOUTH IN THE MORNING, EVENING AND BEFORE BEDTIME. ixekizumab (Taltz Autoinjector 80 mg/mL subcutaneous solution) losartan (losartan 100 mg oral tablet) TAKE 1 TABLET BY MOUTH EVERY DAY. metFORMIN (metFORMIN 500 mg oral tablet) semaglutide (Rybelsus 14 mg oral tablet) TAKE 1 TABLET BY MOUTH EVERY DAY. It is important to always keep an active list of medications available so that you can share with other providers and manage your medications appropriately. As an additional courtesy, we are also providing you with your final active medications list that you can keep with you. atorvastatin (atorvastatin 80 mg oral tablet) TAKE 1 TABLET BY MOUTH AT BEDTIME. ezetimibe (ezetimibe 10 mg oral tablet) TAKE 1 TABLET BY MOUTH EVERYDAY AT BEDTIME. gabapentin (gabapentin 100 mg oral capsule) TAKE 1 CAPSULE BY MOUTH IN THE MORNING, EVENING AND BEFORE BEDTIME. ixekizumab (Taltz Autoinjector 80 mg/mL subcutaneous solution) losartan (losartan 100 mg oral tablet) TAKE 1 TABLET BY MOUTH EVERY DAY. metFORMIN (metFORMIN 500 mg oral tablet) semaglutide (Rybelsus 14 mg oral tablet) TAKE 1 TABLET BY MOUTH EVERY DAY. Take only the medications listed above. Contact your doctor prior to taking any medications not on this list. Diet & Activity Patient Activity Level: Patient Diet: Patient Activity Restrictions: Comment: Patient education materials, if any, will display below Viruses or Bacteria What?s got you sick? Antibiotics only treat bacterial infections. Viral illnesses cannot be treated with antibiotics. When an antibiotic is not prescribed, ask your healthcare professional for tips on how to relieve symptoms and feel better. Usual Cause Illness Viruses Bacteria Antibiotic Needed Cold/Runny Nose NO Bronchitis/Chest Cold (in otherwise healthy children and adults) NO Whooping Cough Yes Flu NO Strep Throat Yes Sore Throat (except strep) NO Fluid in the middle ear (otitis media with effusion) NO Urinary Tract Infection Yes Antibiotics Aren?t Always the Answer www.cdc.gov/getsmart GET SMART Know When Antibiotics Work [place] Department of Health and Human Services Centers for Disease Control and Prevention January 2014 [facility] MAGR Intraoperative Recordon 12-15-2023 MAGR Intraoperative Record MAGR Intra-Op Record Summary Primary Physician: TARUN SORIA MD Finalized Date/Time: 12/15/23 10:32:12 Pt. Name: JANICE SMYTH/Sex: 1965 MALE Med Rec #: [id number] Physician: TARUN SORIA MD Financial #: [id number] Pt. Type: D Room/Bed: / Admit/Disch: 12/15/23 09:47:56 - Institution: Case Times MAGR Entry 1 Patient In Room Time 12/15/23 10:25:00 Out Room Time 12/15/23 10:32:00 Anesthesia Start Time 12/15/23 10:28:00 Stop Time 12/15/23 10:31:00 Surgery Start Time 12/15/23 10:28:00 Stop Time 12/15/23 10:31:00 Last Modified By: Yu Schaefer RN 12/15/23 10:31:38 Case Attendance MAGR Entry 1 Entry 2 Entry 3 Case Attendee Lilli Tolentino MA, Diane RN Baumer, Erica RN Role Performed Medical Health Researcher Medical Health Researcher Medical Health Researcher Time In 12/15/23 10:25:00 12/15/23 10:25:00 12/15/23 10:25:00 Time Out 12/15/23 10:32:00 12/15/23 10:32:00 12/15/23 10:32:00 Procedure Medial Branch Medial Branch Medial Branch Block(Bilateral) Block(Bilateral) Block(Bilateral) Last Modified By: Yu Schaefer RN, Erica RN Baumer, Erica RN 12/15/23 10:31:40 12/15/23 10:31:40 12/15/23 10:31:40 Entry 4 Entry 5 Entry 6 Case Attendee Maria Teresa Castaneda RT (R) Alfa Ramirez RT (R) Elena Easton CUSTOMER SERVICE ADVISOR Role Performed Social Psychologist Social Psychologist Scrub Personnel Time In 12/15/23 10:25:00 12/15/23 10:25:00 12/15/23 10:25:00 Time Out 12/15/23 10:32:00 12/15/23 10:32:00 12/15/23 10:32:00 Procedure Medial Branch Medial Branch Medial Branch Block(Bilateral) Block(Bilateral) Block(Bilateral) Last Modified By: Yu Schaefer RN, Erica RN Baumer, Erica RN 12/15/23 10:31:40 12/15/23 10:31:40 12/15/23 10:31:40 Entry 7 Case Attendee TARUN SORIA MD Role Performed Surgeon - Primary Time In 12/15/23 10:25:00 Time Out 12/15/23 10:32:00 Procedure Medial Branch Block(Bilateral) Last Modified By: Yu Schaefer RN 12/15/23 10:31:40 Surgical Procedures MAGR Pre-Care Text: A.20 Verifies operative procedure, surgical site, and laterality Im.150 Develops individualized plan of care Entry 1 Procedure Medial Branch Block Primary Procedure Yes Primary Surgeon TARUN SORIA MD Modifiers Bilateral Surgeon Comment BILATERAL LUMBAR MEDIAL Start 12/15/23 10:28:00 BRANCH BLOCK L3, L4, L5 Stop 12/15/23 10:31:00 Anesthesia Type Local Surgical Service Pain Management Wound Class Clean Technique Details Closure Technique N/A Entire procedure No was performed via laparoscope or robotic assistance Last Modified By: Yu Schaefer RN 12/15/23 10:31:43 Post-Care Text: O.730 The patient's care is consistent with the individualized perioperative plan of care General Case Data MAGR Pre-Care Text: A.350.1 Classifies surgical wound Entry 1 Case Information OR MAGR OR 02 Case Level None Wound Class Clean Specialty Pain Management ASA Class 2 Diagnosis Preop Diagnosis LUMBAR PAIN Postop Same As Preop Yes Postop Diagnosis LUMBAR PAIN Blunt or No Is the procedure No penetrating injury considered occured prior to Emergent/Urgent? the start of the procedure: Last Modified By: Yu Schaefer RN 12/15/23 10:23:06 Post-Care Text: O.760 Patient receives consistent and comparable care regardless of the setting Time Out MAGR Entry 1 Procedure(s) Medial Branch Block(Bilateral) Time Out Checklist Verifications Team Introductions Yes Confirmed Identity, Yes Completed Procedure, Incision Site, and Consent(s) Presence of Yes Site Verification, Yes Necessary Site Marking, Site Procedural Marking Equipment, Devices, Alternative, and/or and Implants Site Marking Verified Exception in Accordance with Facility Policy Anesthesia Review Antibiotic Received n/a All Anesthesia Case does not involve Within an Concerns Addressed an anesthesia Appropriate Time professional Interval Prior to Surgical Incision Surgeon Review Anticipated Blood Yes Expected Case Yes Loss Risk Addressed Duration Addressed Critical and Yes Non-Routine Steps to be Performed Addressed Nurse Review Equipment Yes Fire Risk Yes Checks/Concerns Assessment Addressed Completed and Interventions Performed Diagnostic and n/a Sterilization n/a Radiological Test Concerns Addressed Results Displayed are Appropriate and Labeled Other Concerns n/a Addressed Time Out Lilli Tolentino MA, Time Out Time 12/15/23 10:27:00 Participants Elisabeth Rivera RN, Yu Schaefer RN, Maria Teresa Castaneda RT (R), Elena Easton CUSTOMER SERVICE ADVISOR, TARUN SORIA MD Last Modified By: Yu Schaefer RN 12/15/23 10:27:23 Patient Positioning MAGR Pre-Care Text: A.280 Identifies baseline musculoskeletal status Im.40 Positions the patient Im.80 Applies safety devices Entry 1 Procedure Medial Branch Body Position Prone Block(Bilateral) Left Arm Position Resting at Side Right Arm Position Resting at Side Left Leg Position Extended Right Leg Posi (more content not included)... [facility] MAGR Preoperative Recordon 0 12-15-2023 MAGR Preoperative Record MAGR Pre-Op Record Summary Primary Physician: TARUN SORIA MD Finalized Date/Time: 12/15/23 10:37:07 Pt. Name: DEONNA JANICE Han./Sex: 1965 MALE Med Rec #: [id number] Physician: TARUN SORIA MD Financial #: [id number] Pt. Type: D Room/Bed: / Admit/Disch: 12/15/23 09:47:56 - Institution: Pre-Op Case Times MAGR Pre-Care Text: Patient will be optimally prepared for surgery. Patient is free from s/s of injury. Provide information to patient/family related to plan of care. Verify patient allergies. Confirm identity and verify consent before the operative or invasive procedure. Entry 1 Patient Arrival Time 12/15/23 09:50:00 Preop Departure 12/15/23 10:20:00 Last Modified By: Paige Johnson RN 12/15/23 10:36:54 Post-Care Text: Patient is prepared mentally and physically and is ready for surgery. The patient remains free from s/s of injury. Patient/family express understanding of plan of care and participate in decisions affecting his or her perioperrative plan of care. Allergies documented appropriately. Patient identifiers and consent correct. General Comments: Pt to PSW. Pt denies cold/flu symtpoms, SOB, sleep apnea, diabetes, CP, or pacemaker/defibrillat or. Finalized By: Paige Johnson RN Document Signatures Signed By: Paige Johnson RN 12/15/23 10:37 [facility] POCT Glucose Levelon 024 Glucose [Mass/Vol] 160 mg/dL High 74-118 [facility] Comment on above: Result Comment: OPR_ ID=[email or web address],TGC FLAG = False,Meter:[id number] Tank Truck Driver:Kurtis Carlisle Performed By: #### 4 [id number] ####[facility] (DEFAULT)[address] [place] [address] Patient Handouton 12-15-2023 Patient Handout [facility] Consent Formson 12-14-2023 Consent Forms [id number]#1. [facility] Cont[facility] Substances Agreem entson 12-14-2023 Controlled Substances Agreements [id number]#1 .[facility] Outside Recordson 12-14-2023 Outside Records [id number]#1. [facility] Progress Note - Provideron 0 12-14-2023 Progress Note - Provider [id number]#1 .[facility] Coding Summaryon 11-28-2023 Coding Summary HTMLBase 64 PxhifgoiVAj2yKg+PGhlY WQ+SX7KHMAhV28aiPRdhU 2qW7OOVIpWEtuxSVGEHNv ZCjFqwbMoVA3xjFNbJZQa IC8+CW9pACQzDpsrsSSlg 4L7qGK5I31css8gSVoktP Q5PPDiSbPnlegxb0bxaJb 6IDcuNmluOyBt FYNujZ04BXD1hQ84Ej64b BRjlTAnw3gcwKe7EzAlFD GzDLI9wJuoCPxuq8GfSRD yI53czVIvw0J0 TQLmjFjewHBlPcEepSF5i G8bXOjkmcawv5caeuhiOc t5mc38mDTwn7L2vVF8D9X gweC6HVMlvKQm ZzlqqXBFrG8orvade3iqq lvdBxAnLCAzJNl8ATa8ZL HqyMwkZuErPG46BAQ3BHR hykOyX4YvFLLq ePjnBxE3a7O2Mp8SL3SBQ qrfM1XFVIGECCsmpJC+PC 89fi09C0UpVaayHef3HTK iYRA1nLX7mF9m RSAvJKfsq7F7lVG1E2Fwu aVmad9xe5nbQFVgAKzoA2 2ylHDbf7K8UNHfdFI0MCF egDgwPgMvvC16 Oyc+RQSxvCoqv7UcSiswh 7syq0sfwCi3DsufGNOpaz ChzCmmKMT1k6VeSj2wJNS gqRV9iGU0aF8t YxCwFaD1OTlwL380BjCco YQuZigoR94wG9FgtJU+PH JgPlt5MIYkcFzzBJ3tG1F hZGRpbmctbGVm mElwMN9nHAHolnysNUDcu Q8xFYOeT6u2YdJnGuU8NZ cmX4DbQLPhlkfoIf42wC8 eCgBmDyO3AWal D2ZryyK6VPEizKInPSusJ HZ2E80bf8C2BSLuRFNlCG C5dRB6mZ5zrMbmgptesNT mdDsgdmVydGlj HFmdGWtnD476UDDabRtkB kNvZGluZyBEYXRlOiAgMD cvMDIvMjAyNDwvdGQ+PHR jUIJ6oImnKHAs cUTaPDrdXb1vcKkkbYnyU O2eFWVshbpxIMJrmA2fZH LbcLDyyUeqRX6zFWZmsdp pt880DxLzPWK9 PQDkyJTlM6AvoY5pEbQqG MDcUMFcX1JfoGOzCNfvX1 70DTtaTuO6GUHbugKyR8Y sLWFsaWduOiB0 p2H6Vn9Jx0GnzisgN6Cex TCdHvJsErvcVIs0Q4TkNn wvdHI+SQ71EIEjIM50SKc 8RWU7hKmwIGjq XMRaW7YmmS8sTrFwXGVvS GRkOyc+PHRhYmxlIHdpZH RoPScxMDAlJyBzdHlsZT0 zDq7wVFJdEJZh rItocZWjNdFwx9qyBEZuX LyaVZ1lpZahQ9NxsHB2YM Npy2z7Ta62O60tB3TglZN +GDDhgZV3hJH6 kK9jJyQlBvM8CRnhE513M wIedQExZqxpy6zxy2zltT u9ThO4RRXpivLexIofXEN 8k4YvUc51U40e IHdpZHRoPSIxNSUiIHZhb Buavy0enM6aWi8+PGNvbC P6bOH4zD3pRoNmNsN0QCq yD696XiUqhRVd Drtll1mau1kpoFr6IjKtL KZtxuKecDrtESV1e1VzVi 24Y9DdjBekq7YbPxb5qw3 9bGQjb2A5vVC1 U9IiQMSzgekkaRKebIupC R5sXKPxcagpQINrnL5fTQ KxO6b0HrFyRfP2DZhoF2H uckA2INVsdBHq RPBwvMVOhV6zblbsl1jol kucUtOdRZNvQBf4NQx7JQ AuwTmmPyKsCVN9BtI0QJP 8xAIylS8vkUmo jkpylY4oHct+SON3xKDbh JXXQL4gPhbbiAJ+PHRkIH D5iDcyTWylROTkcT6hJXO fL6e7DtPlBdH1 RJgjJ0GkvpW0VZNdcURzX LCspMWGlS6dhfqgg6zmsr xnSzRqXLKqIDt2WLm7KJR saWduOiBsZWZ0 GrM4TIR7aIBprL8zmUvek zjpeI9eQfq+QmlydGggRG L5EJq6Q2QlDcm2NEUmpJk zRB9lzMJrTOpp Hq8izJhynKvdNU3xWPIge iwdd987KuCvq6ezBSFfuC QgQHehEMG0W62nk6U9SGT mOGMtMPL2xGW3 uS6hdVdbawlqhXFezSkzd xPmwBhsXClxCUbvD753CL EcpJdrNlTgMXx1U2UhGoe 5HKAcyZncLQ9w sSCvZOkjFe7zeRjzzDyxO V4aRCYkvlqrt053JmAzh1 wbDKTotGBbXVnuSCJ3J74 xk7R9GPWoYJJl ZQK5xSK9sQ4ryBttsccfy GVmdDsgdmVydGljYWwtYW wjZ474WPHgxXklKjAjuIm 0P0JwDax5FUEi iDefBZ2lcTYzAWvjRl9gd SjfvNxiTC9jNVKrnqkzp5 40WgTxf2exEAZpuWNlHGp bKEW5D03cd6M4 KOYrMKZdOMI2kCA3sQ5vd GlnbjogbGVmdDsgdmVydG bfIWzsWWwnW828MFXvoNu nPlBhdGllbnQg SKqsNIm6G3YvStpglZQ+P Y51EDYiDN40dNEohHPqe1 oakNy5EaJhXTCjQLP6cZm lKRcou4LnQSVs J02ltPFfj0Q2EEOsrOvds ILgShJaqLN6vZ1rBKztpf wxr4darqmpYpkfb4zskx0 2nU64I52hEDdx ZHRoPSIzMCUiIHZhbGlnb n2itN6pDy3+TVNzeUR4qP B6gG2lSXMeZhR2IBqgG84 9InRvcCIvPjxj p8kpv1ogpZk9LwR1GAMya mFtfNzoTYH0u2EhLi42Y6 9sIHdpZHRoPSIyMCUiIHZ lxIpekv3qoJ3v Ii8+SYPbyQO0jAH9sC0wP eSiVtX2HAnrS746IrSlxE QyErrkL63jI1FkuOK+PHR vDlb6LUIkhUjb KI1piQCeAZmeKk4jDWE7U mAaVhNkUMydQ0JbWSTyve srumymgNZ6ONYeNHYteZ7 2Lt2tfSscBULc yBVRjB5ciwdxl2rriqtmK kKmVSBgORz8OTo3YBFlhH dcJcEzEHV2RvF9WDD4jLB zaI6ghMzovtsk pK6yI8CwAQIxicoqPl37e N7sQsGwUaW9QYufPci+U0 TDXLoWVjmqCrCYUQQ1S1D hYsa5JELcjTgr JO5yaPWyVDktYa2zyBkis CdfYE7yDIKwlssoHUNwfH 5bUELjaTIwsSmsTO4rETA jklwkm348TnQl CKP5ZHVblOOkV6GffS2rU vMoJTFpNNObI8BenKBiGH bbD661EFirVqR5FRHieaE pQ5FnFAAtlLik VvM4e6W6Yb7aJy1hVG9kH WP1TI33TD28mBAky3L5jS D3F6KbZXBlyngepvlpjRJ 5ENCuLUMjbK23 yGRyOAllJt8tc0I9g688I KIsXCXryE44Tt2ojRnpZS ReaPXZuM3ultqsv4sdgbo gIzAwMDAwMDt0 BVq5LFDnvCoqLqIpJLQ2O uQ4OCL6kPOdiG5fiVaape qodG7qLpa+NjAgWWVhcnM 4F2NpBwk6AJJc vKfeQF0flASuJDlcGb2jv SmgcYrsMQ7cLEFillhxQC KjsM1fJHXcuPNywGovKP6 cUYTrenhrc010 XwUzBEE1POOjjCHmC2Mhn M8oGlWkXWAqUKYfN9EhnQ WmEVpcO181JZntXpF5MDQ elyUiJ8KeSRAu dPumLvS7z2R9Go1JMClRI E35FK33eBNkb9I3jPB3A7 PrZROqcfkfurzxfMS4MBP hOMGzmL89mASj ZCohHs1we5H9d806ZIMzK GWshY28Px7ubAzoPHHuhG SSuT3ykxccp3xgfiexOmL fWCHhYCm8YCh5 JRWchTmiBkQtAWW6AqK8I IF5qYMidP6rfVyerbhseS 9wOyc+Z1O6S1ObTzhdxYS +VG32YGZuTC16 lDExxQQbq9bqqRe0OfLiX VVtSGH3uAatMLflt0GiBF VlF00sqWOtl8J1TNZdrEg hcHNlOyBlbXB0 rP3kBVzeysjnl4vrflnqF mchz3jypd67gJ79B31hZF dpZHRoPSIzMCUiIHZhbGl dmu6uxH0cFr6+ WJPvfPQ5cWU5tU8rOrIuI jI5ZNhnE656XnMydVJsCr sni7ulz6iieCx6VoRqMBE gdmFsaWduPSJ0 h5CgRi04D23cSSsxSWXqI QEdMDSbOOHxnLtoen7svP 9wIi8+YB2qg5acun60uA2 8dHI+PHRkIHN0 lGajLIdoAFMvxJ8mLHqaH lF2QKSzTvYpeT15tGJfAR nyQk5bvJastSoaAC2kJGK ejmysv198ZwEg r3ouDZTwjNBlDXxoUZD5V 37cb0L7RMZiZSLxIAX2rH A3kJ0spDwuskckdXXhyLl gdmVydGljYWwt GXgkP022CLHfgIguEvAkz WZnI7hfkfXFPG8qDgtxtT Q+BCIxSTG0dEjrKChrIAH vaZ5wDKIeF1y9 VwSfYiB9SZwdQ4MucjY3B DKzmDMyQIVwnKYYzR8ovt zfm5hbzkkdDxDmWYXiSEi 8CAj1XIWkvWfi WaDeBHP1QxE8TYJ0pSPva Y9ejLaydqeulZ2tRow+Rk lOOjwvdGQ+TNHtSWS5rDp eFTzpKLLitF5p OSRgF9a6VeEfVnV1NTsnS 1ZaulM6FPWpfQGhBVTtuW FCsH1adnomx7wzqbrsSpR dDRDlBYv8ZSm9 OHWuiBulUpEaZLX9PzD1K VV2vLVwiQ5odLtsjquumO 9wOyc+TVJOOjwvdGQ+PHR cLVS9iWipJUsb WJEhdL8yMYKkP0n1XdPrS lA6YWurM1XxgfH5JNLdeV YlKWRbhQPJnE5axkkfc6z vcjogIzAwMDAw OPh3TTp4JKHneMccCfUoQ MV5PgS2ZTH5gYUueY2hjX cmhhducK5uBnn+UGC2VTW 7CJ40PT65X1Gl PjwvdGFibGU+PHRhYmxlI HdpZHRoPScxMDAlJyBzdH gtTJ2sMe5aSIBbWSMdgFr puLQdJsYtx7mx YXB (more content not included)... [facility] Coding Summaryon 11-21-2023 Coding Summary HTMLBase 64 GowpdtkuMZc4yAr+PGhlY WQ+BV7NKFGrM20yuBUpdV 6lN9AGGYvKMsygOETGBKw IEeZlbbEeSS5yhCWrZHWd IC8+DK7xLIQjIkuudPQbu 2M4kIM2T37yds1cVGtjkV F7CHCnZuTwcvwgi8uwpWf 6IDcuNmluOyBt OTMggM20OJD0eQ46Vy94m SDpoEMdp8gdvNi7FfOlOZ QwEYZ2ySxhIBflk7HfGQE lL67kqWVke7C1 LFIumHiwsHVpZvYciJX9s J6tCFleartgi9ftdfjnIx g3pj35hUTya7E1pCY0Z3P zsvU7KHPirYNp XgrajWKYlT3fvueji6fpo dbnCaWfJBSnIEt5BGt1EB BkyOdhUtPsNY20VQD9BAB qheKpY2KxEJXv rZcgFoJ6f3R1Lf3QJ0QRB zqlN8DYWUPFUUowdCL+PC 36dw06B8IkItubFiw2JOH lDML5wLJ1aH9h YQHeOOpal3H0qON1T7Rup yDagh4bl0ceMVTeEQrqD9 5ohDUpv8Q6KQUihYV4OBK eqKyeWmDrwP94 Oyc+VFSugGdty2VzVzzil 7aht5oakAk2QkkkLWVfze LpsIctUCX5f1DeZo4wZGT slJG2xWE1nN3l CqPtQgV9EVexY782TlXpw UAxLxemK67kG2ZbqEQ+PH OoQhz0SWAnvXzrHQ9fW9G hZGRpbmctbGVm qCbzHF1mYEZhtqaxGNAqg E9wRMWqR0l9DgWiHlQ7BV pbF3FoDXMvdosfJj76wG5 tFlNdOmJ8EYux S9DjplN5GWKoyNWhZZhwP DK5F55jb3G0DSCtWZEwWF P5yFS9qW8qeNsziysccVJ mdDsgdmVydGlj KRtwRHmnO304KOSrgSgmD kNvZGluZyBEYXRlOiAgMD YvMjUvMjAyNDwvdGQ+PHR pSLP5cHzdDDZx rQHlLMvbPj1zrIdglIkdX C7xHOArkwmcWSHvmA4cRT VhpDBqeHwtST2lQAMnmxx wq791BdWpQJQ5 QCYtsSKoM0WvxB0iXfAsN ZYxUJBuQ0EfsDDhVXpzM0 54BFlvVcI5MIWchtVpX6Z sLWFsaWduOiB0 o7H7Ut6El7MftltaO5Sln AFsEuKeSbbpFTl3A2OqPh wvdHI+KO15BIOoDO80GMw 6RNW6jGewKZvj FSDkQ0YxwX3zCwKmRDMvR GRkOyc+PHRhYmxlIHdpZH RoPScxMDAlJyBzdHlsZT0 wFb1fHHCcFBCa vEimjRJdZbLhi7kqBYPhT ThyJV1zwNtkQ3TwwTK8TR Ynn3o4Zl22A41kE2OjqMJ +KIBslAJ7jHC0 pK6wSbIkXaT6ALqlQ345O iIurRLkZivtv4agb3aulN v2JyI9EUVhpaZmjOrnXWS 8r4ApHw65L60e IHdpZHRoPSIxNSUiIHZhb Heqmh4vyN7oYj7+PGNvbC Z4gYE9cM9vJuCaOmV3NVn bV637NcQgfYIk Dbtfj0ojz0iecIg4XfJpK FOcxpIgcKrxWMM1x9YaMf 80Z1UfpSqmf5DwUfo3gl5 6vWMaw7Q4gEF5 O5RqLBKksxabgOFeiZfiF I4gATAkyliuOQCalG6jPO KoY3f5OpPlPcC1OXouY1Z xfhS0KHYjuZDo QWYyzHSYwA1ndgcqe3iix ohiXvEhLOZaPPb5NCi9YN JymSspIsPpYHP2XlB2ABO 7vUNviN7pvOtu pmhdkN6yWym+PEZ9aFDhn IWWLH1nAgdaoZQ+PHRkIH H7nLeuQJccWYHzxH7jTHR eA1y8McZvPqR2 FVsyU8AjutE2ORLjjZPyR HEybKIXoH1hhcevs7ixju maYrPqIESiTKd8YSj2YWB saWduOiBsZWZ0 BhW3ZTE5lREdhI3onEjez xuupX8fKyl+QmlydGggRG L3HHc6B1OaYda0UBEfgJh iIQ7zxRXkUTdr Qc7mwMpkqAnqHI4fGCHor nlza429LnDgh9qiESFqjX BpGUuzFFC7I62bk0Y2JCH mRABzCJS9mDB6 vN9wuRczaekvzJFweYocp xPztCsvUNorTCeyD061MG FzaEofGdGeXVr4M0GcCwk 0YNLjcRhgRM0j xVEhKVvgLi4etGtiiMtgO Z9kBGWnhmbbl809PnGys9 nwWDVeiKItAWynEGT5P59 go0D5LOTgRABf SNW5wOY9jM8ytMdloqiky GVmdDsgdmVydGljYWwtYW qbT373VWAciYkeIjAdkUd 8W8GcNay9EFRi yUyjRP8ueUTgODngNk3xs NhheSjwKG6zVIQdnqfpn6 93TyYnu5erIBCyuPVqPPp mSCQ2J05ul3P5 TOMdATOjBPW6oCZ4eK4py GlnbjogbGVmdDsgdmVydG ndKSodIBwiP047XLDpaKa nPlBhdGllbnQg ILbzVQy1M8QpWwxgtXY+P K52ZUZzIH78jKZvgEEjx9 ufpLf1LfZeXPTzXDU2zWw kHQszd4RmHZBv Z53bxXYdc8G8ECZzxAmez KQdXkBnwCK8zO9tFHjuug ajs5idybcqZahaa4kkxi0 2uQ38C80sRMaz ZHRoPSIzMCUiIHZhbGlnb y8gtC2oAb3+FFBryIP9kA G4jC7fJVAaJtO9NFxxE27 9InRvcCIvPjxj a5ttu1nxqFi0QfM6QPJah bKkfRzkGVK5r9KaEy92O6 9sIHdpZHRoPSIyMCUiIHZ nmYsifb4lpM1k Ii8+ROPlwFQ9aAC0vB7vU uUpFnZ8SNusK792EzDvxR BmSuovQ60oI1FliII+PHR uGkg3BQTgcCkg XV8kjUPkJGjcEy0cFTB1Q bEpGwKcIVlyX8AyAPJzym mztccohJA2PDPyVMNvlC9 2Ij4ljIhgCGAr qYKOgO5pmxrlm3pgpnzwS nQcRQLyKYv1YOw1GPXqsW kvRkKfICN5LuS3VZR1sBT scK4giAtmdyhp fP5xS9FdLSDbtijcCq36z Z3wDxLbMxU6USvbLqu+U0 XKZPcVWgvbQxKATLF4R8I eGsp9PMTqsRgm XU0oiKRbEFraVd4tzAstp PgyQA7lLCDycnshIQZolT 1uALHanWYywBluXQ3mQBV ghiwnl937KsWb JHU1BIZokWNjZ0SycM5tE iLgTZDcKCZlM9RqlRWnZT xkA473BDvkErC6OBKagoV jN8SeHGSgpRxg AfI7m0M2Tw7aBf0fBE3hM YK6OW45YS95mXFok4J1dX D7H5ThPFHfksclcxhzmRJ 9BLArBIEpjD77 wIQwZNxnNu3ud5Y6z621V TRuMUEjbS92Hs8saVskPF DvcBGFtB5tcstrx2wwkwp gIzAwMDAwMDt0 VQr2ODSlgGluYfNnJBG6Z sE6PYB0hVYsvF4ufElvsu ejkZ0bMdn+NjAgWWVhcnM 5P7JiVxf3FHXu eXbeIL3gvEDoQXhjWr1no AirqRkhVS4tPOTcdojaNX XupF0gTJFitYGorJvxXX1 sRJMiggvph243 ThUqQYM1YUPtnYNpB4Jzg A8fChBxFRQwMWMmF2HxeF SwHVsyW593XSqbEiC9LUR kfoIpG2TvONCs wQgnHcN1y3P2Rt3EWNyWG U33ZP39eWTzr0L6nYK1J4 EcBEPtmnjfvvrzeIQ7QRN kOFWknI60tHWc ADufCd5hc6X1n026MQUuN GVqbV31Ss5vrYqzHBCxfV QXsJ7auklvg6odpcktZsZ vUUGlWOv3CBq4 YPFbqXnoSnFoRRK7QaQ5X YN6tJIgfA2muPnwvwkzjF 9wOyc+Q9B9J5DoKgoviVY +KK58MADeND05 uUChlVZbv3njuFi7DyVvJ YGjTSG7tRzaIYmpp6RjEJ ZkE84toPRrk7S4NZAnoGx hcHNlOyBlbXB0 aC5pZSvtwsutw6xpvipdY hapk9tmsu12wC89Z18sVU dpZHRoPSIzMCUiIHZhbGl awe7kxS3dWj4+ IVFfkYF8xJU4oF0pYdFfK xH0BWpfB410FkLmnXQkXx agr1gwr7hwnSn7CpBsIJD gdmFsaWduPSJ0 d1AvMp05I25qNCftZWPkG EYzIPVqBCOpsClibb3rsA 9wIi8+LO3ts3ilbx15aJ1 8dHI+PHRkIHN0 gAmfHXroHKFsfX8aEYrhJ nO1RDFcFqAeyW17tRUjNZ skQc4axEvnaRyoPD3kGRJ wqhabu367VjUl u5rjLOYxrTHnRIqcQYN5O 71go0Z3CZMtSZFuRHA4yC A3yS2bpMqukxczpUVobXi gdmVydGljYWwt IZzmY342GJOhpJnrLhYys JLwU3zpkmEGWN5eKwcgeS Q+OTVhXZT2bZoaXNbxAKU cnT9kVIGwN1l9 CyUcQbG6MTaoT9TwphO9O BRndZKpZHDzsEHVrC3rll hys2upnfynYwOvPNErEZj 3XAf9XSRwmQqx WsHcUNS7EkB2QUJ9kZBkg U0hdBvpwaigxI5qYwa+Rk lOOjwvdGQ+ETAwQNX4dOa pFTwbCOLvuH5z SAGzO1e9XpBdZbV9JNtnX 1CwlyQ7PTAqxFPoFCJcaG UPgI0mqfsrr6nsepcsCfF uBMBdOHd3IBw4 USOdiXzaTrMeIWN6DvA0W PV9vNFpdN7mbNcxrxodoJ 9wOyc+TVJOOjwvdGQ+PHR xDDA7xJpgCCmo JESjiJ7mXZMuI0w8JlBeP oR1YXxvI6NnqsH7EYPrlG VjYAXahQZNxZ7txdoxy9g vcjogIzAwMDAw TDa1ZLr1ACPeyNhkDcLoI OO9HxM3OCS4aBAecZ6wnI nfzdygmC1qChf+JRN7DMU 1GD31NE80I3Gi PjwvdGFibGU+PHRhYmxlI HdpZHRoPScxMDAlJyBzdH zrNX7pBc3nCOFpCOSrmOy bkKBbCzLbj3zx YXB (more content not included)... [facility] XR Hip Bilateral w/Pelvison 11-16-2023 XR Hip Bilateral w/Pelvis EXAMINATION: XR Hip Bilateral w/Pelvis HISTORY: hip pain COMPARISON: No relevant comparison available. FINDINGS: RIGHT FINDINGS: BONES: No acute fracture or dislocation. Moderate to severe right hip osteoarthritis with joint space narrowing marginal osteophyte formation and mild bony remodeling SOFT TISSUES: Negative. No visible soft tissue swelling. OTHER: Negative. LEFT FINDINGS: BONES: No acute fracture or dislocation. Mild to moderate osteoarthropathy with marginal osteophyte formation SOFT TISSUES: Negative. No visible soft tissue swelling. OTHER: Vascular phleboliths IMPRESSION: RIGHT CONCLUSION: Moderate to severe osteoarthritis LEFT CONCLUSION: Mild to moderate osteoarthritis Final Dictated by: Yann Mccormack MD Dictated DT/TM: 11/23/23 4:18 Signed (Electronic Signature): Yann Mccormack MD 11/23/23 4:19 pm Technologist: CAROLA [facility] RAD - MRI Reporton RAD - MRI Report [id number] .00TIFF [facility] XR pre/post mri xrayon 08-02 XR pre/post mri xray [facility] Main [place] [address] [place] [address] MRI Report Signed Patient: Janice Smyth MR#: [id number] : 1965 Acct:[id number] Age/Sex: 57 / M ADM Date: 08/03/23 Loc: [facility] Room: Type: [facility] Attending Dr: Leydi Lemons DO Copies to: Leydi Lemons DO Ordering Provider: Leydi Lemons DO Date of Service: 08/03/23 MR/MR lumbar spine wo con: [id number] ([id number]) XR/XR pre/post mri xray: LUMBAR PRES MRI Lumbar Spine withoutcontrast TECHNIQUE: Multiplanar T1 and T2-weighted imaging of lumbar spine obtained without contrast. HISTORY: Chronic low back pain with radiation into the legs. Numbness. COMPARISON: 04/06/17 The last fully segmented vertebral pair is operationally defined as L5/S1. POST SURGERY CHANGES: None BONE MARROW INFILTRATION: None BONE MARROW EDEMA: None BONY ALIGNMENT: Adequate bony alignment identified. SPINAL CANAL: No significant central canal narrowing. LUMBAR FRACTURE: None BONY LESIONS: A similar S1 vertebral body hemangioma. KIDNEYS: Development of RIGHT subcapsular hematoma posteriorly. This measures 5.4 x 2.1 cm. Adjacent hemosiderin suggest remote finding. No hydronephrosis. AORTA: No aortic aneurysm is seen. CONUS MEDULLARIS : The distal spinal cord is in adequate position without abnormality. Additional findings CONJOINED NERVE ROOT: None Lower thoracic level: Unremarkable L1-2 :Mild spondylosis and diffuse disc bulge. Mild central canal stenosis. Posterior element hypertrophy. Mild bilateral neural foraminal narrowing. L2-3: Mild spondylosis. Patent central canal. Posterior element hypertrophy. Mild bilateral neural foraminal narrowing L3-4: Similar mild spondylosis. Diffuse disc bulge. Similar mild central canal stenosis. Similar posterior element hypertrophy. Similar mild to moderate bilateral neural foraminal narrowing L4-5: Similar spondylosis. Similar midline disc protrusion with concavity of the anterior thecal sac. Similar mild central canal stenosis. Similar posterior element hypertrophy. Similar mild to moderate bilateral neural foraminal narrowing L5-S1: Similar extensive spondylosis. Similar midline disc protrusion with concavity intrathecal sac. Mild central canal stenosis. Mild posterior element hypertrophy. Similar moderate bilateral neural foraminal narrowing MR/MR lumbar spine wo con IMPRESSION: Similar discovertebral degenerative changes with similar levels of mild disc protrusions, central canal stenoses and neural foraminal narrowing. Development of remote appearing RIGHT posterior subscapular hematoma. Pre-MRI plain film assessment: 2 views lumbar spine for pre-MRI assessment. Extensive L5-S1 spondylosis. Additional lesser spondylosis. Lower lumbar hypertrophic facet changes. No fracture. IMPRESSION: Extensive lower lumbar degeneration. Impression dictated by: Antonio Davis M.D.08/03/2023 3:44 PM Dictation Location: [place] [address] Transcribed By: [facility] 08/03/23 1544 Dictated By: Antonio Davis DO 08/03/23 1537 Signed By: 08/03/23 1544 [facility] RAD - MISCon 07-10-2023 RAD - MIS [id number] .00TIFF Normal [facility] RAD - MISC [id number] .00TIFF Normal [facility] RAD - Ultrasound Reporton RAD - Ultrasound Report [id number]#1 .00TIFF Normal [facility] XR Knee - right 3 [facility] Result: X-rays AP bilateral weight bearing, bilateral sunrise and right lateral knee total of five views with permanent images are saved to the record shows no evidence of fracture, DJD or other osseous abnormality. [facility] CBC w/ Auto Diffon 4 Basophil Absolute 0.0 E9/L Normal 0.0-0.2 [facility] Comment on above: Performed By: #### 1 [id number], 0192766, 5849533 ####[address] [address] Basophils/100 WBC (Bld) 0.8 % Normal 0.0-2.0 [facility] Comment on above: Performed By: #### 1 9151703, 0194642, 4154954 ####[address] [address] Eos Absolute 0.1 E9/L Normal 0.0-0.5 [facility] Comment on above: Performed By: #### 1 4864009, 4726024, 4598492 ####[address] [address] Eosinophils/100 WBC (Bld) 1.3 % Normal 0.0-8.0 [facility] Comment on above: Performed By: #### 1 0338504, 8751605, 8660943 ####[address] [address] Erythrocyte distribution width (RBC) [Ratio] 14.0 % Normal 10.9-14.2 [facility] Comment on above: Performed By: #### 1 6336759, 9007843, 4471893 ####[address] [address] Hematocrit (Bld) [Volume fraction] 41.0 % Normal 37.7-49.0 [facility] Comment on above: Performed By: #### 1 7032431, 3854282, 1083846 ####[address] [address] Hemoglobin (Bld) [Mass/Vol] 13.9 g/dL Normal 13.5-17.5 [facility] Comment on above: Performed By: #### 1 6873468, 8526778, 7695294 ####[address] [address] Lymph Absolute 1.6 E9/L Normal 1.0-4.0 [facility] Comment on above: Performed By: #### 1 5359261, 3040782, 6902018 ####[address] [address] Lymphocytes/100 WBC (Bld) 29.2 % Normal 14.0-50.0 [facility] Comment on above: Performed By: #### 1 5381091, 1667678, 6233776 ####[address] [address] MCH (RBC) [Entitic mass] 27.5 pg Normal 27.0-34.0 [facility] Comment on above: Performed By: #### 1 4487301, 7379318, 2051251 ####[address] [address] MCHC (RBC) [Mass/Vol] 33.7 g/dL Normal 31.4-36.0 [facility] Comment on above: Performed By: #### 1 3729743, 1137514, 2694480 ####[address] [address] MCV (RBC) [Entitic vol] 81.6 fL Normal 80.0-100.0 [facility] Comment on above: Performed By: #### 1 0626299, 7792009, 0264478 ####[address] [address] [place] Absolute 0.4 E9/L Normal 0.2-1.0 [facility] Comment on above: Performed By: #### 1 5842019, 9755234, 8309964 ####[address] [address] Monocytes/100 WBC (Bld) 6.7 % Normal 4.0-14.0 [facility] Comment on above: Performed By: #### 1 5525595, 5123460, 0385198 ####[address] [address] Neutro Absolute 3.4 E9/L Normal 2.0-7.5 [facility] [place] [facility] Comment on above: Performed By: #### 1 5346848, 3802194, 5547675 ####[address] [address] Neutro Auto 62.0 % Normal 36.0-75.0 [facility] Comment on above: Performed By: #### 1 4570698, 2195996, 8111235 ####[address] [address] Platelet 254.0 E9/L Normal 150.0-500.0 [facility] Comment on above: Performed By: #### 1 9811431, 9722086, 1193451 ####[address] [address] Platelet mean volume (Bld) [Entitic vol] 7.7 fL Normal 6.4-10.8 [facility] Comment on above: Performed By: #### 1 2263532, 6882411, 9998897 ####[address] [address] RBC 5.1 E12/L Normal 4.3-5.9 [facility] Comment on above: Performed By: #### 1 7728735, 8558524, 5792553 ####[address] [address] WBC 5.5 E9/L Normal 4.0-11.0 [facility] Comment on above: Performed By: #### 1 7265837, 1549179, 9049688 ####[address] [place] [address] CHEMISTRYOrdered By: SYSTEM SYSTEM on 07-05-2023 CRP mg/dL Normal <=1.9mg/dL Remisol Chem CRPon 07-05-2023 CRP [Mass/Vol] mg/L Normal <=1.9 [facility] Comment on above: Performed By: #### 1 4891683, 2330308, 8841065 ####[facility] [address] [place] [address] Consent for Treatmenton Consent for Treatment [id number]#1 .00TIFF Normal [facility] CBC W/ AUTO DIFFon Basophils (Bld) [#/Vol] 0.0 10*3/uL [facility] Basophils/100 WBC (Bld) 0.8 % 0.0 - 2.0 % [facility] EOS ABSOLUTE 0.1 [facility] Eosinophils/100 WBC (Bld) 1.3 % 0.0 - 8.0 % [facility] Erythrocyte distribution width (RBC) [Ratio] 14.0 % 10.9 - 14.2 % [facility] Hematocrit (Bld) [Volume fraction] 41.0 % 37.7 - 49.0 % [facility] Hemoglobin (Bld) [Mass/Vol] 13.9 g/dL [facility] LYMPH ABSOLUTE 1.6 [facility] Lymphocytes/100 WBC (Bld) 29.2 % 14.0 - 50.0 % [facility] MCH (RBC) [Entitic mass] 27.5 pg 27.0 - 34.0 pg [facility] MCHC (RBC) [Mass/Vol] 33.7 g/dL [facility] MCV (RBC) [Entitic vol] 81.6 fL 80.0 - 100.0 fL [facility] MONO ABSOLUTE 0.4 [facility] Monocytes/100 WBC (Bld) 6.7 % 4.0 - 14.0 % [facility] NEUTRO ABSOLUTE 3.4 [facility] NEUTRO AUTO 62.0 % 36.0 - 75.0 % [facility] Platelet mean volume (Bld) [Entitic vol] 7.7 fL 6.4 - 10.8 fL [facility] Platelets (Bld) [#/Vol] 254.0 10*3/uL [facility] RBC (Bld) [#/Vol] 5.1 10*6/uL [facility] WBC (Bld) [#/Vol] 5.5 10*3/uL [facility] Original Ordering Provider: DO [facility] HEMATOLOGYOrdered By: SYSTEM SYSTEM on 07-05-2023 Basophil Absolute 0.0 E9/L Normal 0.0 - 0.2 E9/L [facility] Heme Basophils/100 WBC (Bld) 0.8 % Normal 0.0 - 2.0 % [facility] Heme Eos Absolute 0.1 E9/L Normal 0.0 - 0.5 E9/L [facility] Heme Eosinophils/100 WBC (Bld) 1.3 % Normal 0.0 - 8.0 % [facility] Heme Erythrocyte distribution width (RBC) [Ratio] 14.0 % Normal 10.9 - 14.2 % [facility]e Hematocrit (Bld) [Volume fraction] 41.0 % Normal 37.7 - 49.0 % [facility] Heme Hemoglobin (Bld) [Mass/Vol] 13.9 g/dL Normal 13.5 - 17.5 gm/dL [facility] Heme Lymph Absolute 1.6 E9/L Normal 1.0 - 4.0 E9/L [facility] Heme Lymphocytes/100 WBC (Bld) 29.2 % Normal 14.0 - 50.0 % [facility] Heme MCH (RBC) [Entitic mass] 27.5 pg Normal 27.0 - 34.0 pg Remisol Heme MCHC (RBC) [Mass/Vol] 33.7 g/dL Normal 31.4 - 36.0 gm/dL [facility] Heme MCV (RBC) [Entitic vol] 81.6 fL Normal 80.0 - 100.0 fL [facility] Heme [place] Absolute 0.4 E9/L Normal 0.2 - 1.0 E9/L [facility] Heme Monocytes/100 WBC (Bld) 6.7 % Normal 4.0 - 14.0 % [facility] Heme Neutro Absolute 3.4 E9/L Normal 2.0 - 7.5 E9/L [facility] Heme Neutro Auto 62.0 % Normal 36.0 - 75.0 % [facility] Heme Platelet 254.0 E9/L Normal 150.0 - 500.0 E9/L [facility] Heme Platelet mean volume (Bld) [Entitic vol] 7.7 fL Normal 6.4 - 10.8 fL [facility] Heme RBC 5.1 E12/L Normal 4.3 - 5.9 E12/L [facility] Heme WBC 5.5 E9/L Normal 4.0 - 11.0 E9/L Rem[facility] Heme HEMATOLOGYOrdered By: Ulysses Culver on 07-05-2023 ESR (Bld) [Velocity] 10 mm/h Normal 0 - 19 mm/hr FT HemeAutoSS Physician Orderon 07-05-2023 Physician Order [id number]# 1.00TIFF Normal [facility] Sed Rate Automatedon 024 ESR (Bld) [Velocity] 10 mm/h Normal 0-19 [facility] Comment on above: Performed By: #### 1 3781106, 7925296, 6668815 ####[facility] [address] [place] [address] XR Knee - right 3 Viewson Radiology Study observation (narrative) [facility] Ambulatory Visit Summaryon 0 06-12-2023 Ambulatory Visit Summary JANICE SMYTH :1965 Visit Date:06/12/2023 Ambulatory Visit Instructions Your Diagnosis Kidney stones Hematoma of right kidney BPH (benign prostatic hyperplasia) Aspirin long-term use Tests Performed Urnls Dip Stick Auto w/o Microscopy POC 86[address] XR Abdomen 1 View -- Results Pending -- Please visit your patient portal for your results or contact your primary care physician. Your Care Team Attending Physician - Sean [...] ACOSTA, Sean Stovall Where: [facility] Patient Educationon 06-12-19 Patient Education Urology Kidney Stones Kidney stones [...] these instructions at home: Medicines ? Take txtd-cer-ojvrdkw and prescription medicines only as told by [...] provider. Document Revised: 01/17/2022 Document Reviewed: 01/17/2022 Elsevier Patient Education ? 2022 [employer] [facility] Provider Letteron 06-12-2023 Provider Letter June 12, 2023 JANICE SMYTH [address] [place] [address] : 1965 To Whom It May Concern, Please excuse above patient from work. Date of Illness: From: 04/27/2023 To: 06/18/2023 May Return to Work On: 06/19/23 Restrictions: Patient may return to work without restrictions. Comments: N/A Sincerely, [facility] Dr. Sean Cope [facility] Urology Office/Clinic Noteon 06-12-2023 Urology Office/Clinic Note [...] to radiation risk. No recent PSAs on [facility] (PCP checks PSA). Dysuria: _denies Incomplete bladder [...] safely again. CT AP w con 04/28/24 [facility] - bilateral renal stones measuring up to 5mm on R. No hydro. CT AP w con 04/30/24 [facility] - unchanged bilateral stones. No hydro. Discussed [...] - 0.58 4. 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 Follow-up With When Contact Information Sean COPE MD, URL [facility] [address], [place] [phone] Additional Instructions: KUB in 6 mos Patient Education Kidney Stones, Bhyr-rl-Aogq I, Carol Padilla, personally scribed for Dr. [...] of ant (more content not included)... Normal [facility] Comment on above: Result Comment: Elec tronically Signed By: Sean COPE MD\.br\Date and Time Signed: 06/12/23 09:49 EST\.br\Electronically Co-Signed By: Carol Padilla\.br\Date and Time Co-Signed: 06/12/23 09:47 EST Lab Reportson 06-08-2023 Lab Reports [id number]#1 .00TIFF Normal [facility] Lab Reportson 05-23-2023 Lab Reports [id number]#1 .00TIFF Normal [facility] Lab Reportson 05-15-2023 Lab Reports [id number]#1 .00TIFF Normal [facility] Formson 05-10-2023 Forms [id number]#1 .00TIFF Normal [facility] Insurance Correspondence Off iceon 05-10-2023 Insurance Correspondence Office [id number] #1.00TIFF [facility] Ambulatory Visit Summaryon 1 07-09-2022 Ambulatory Visit Summary JANCIE SMYTH :1965 Visit Date:05/08/2023 Ambulatory Visit Instructions Your Diagnosis Kidney stones BPH (benign prostatic hyperplasia) Aspirin long-term use Hematoma of right kidney Tests Performed Urnls Dip Stick Auto w/o Microscopy POC [address] Your Care Team Attending Physician - PRISCA [...] ACOSTA, Sean Stovall Where: [facility] Patient Educationon 05-08-20 Patient Education [...] these instructions at home: Medicines ? Take nhpj-hsw-rlffvoo and prescription medicines only as told by [...] provider. Document Revised: 01/17/2022 Document Reviewed: 01/17/2022 [employer] Patient Education ? 2022 [employer] [facility] Progress Note-Physicianon Progress Note-Physician Assessment/Plan PLAN: 1. 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 HTN (hypertension) (I10: Essential (primary) hypertension) Holding Losartan due to LUIS MIGUEL. Amlodipine started today improved. 9. Kidney stones (N20.0: Calculus of kidney) s/p lithotripsy by Dr Cope on 04/27 at [facility] 10. Type 2 diabetes mellitus (E11.9: [...] 05:53:00) Lymph Auto: 26.8 % (04/30/23 05:53:00) [place] Auto: 8.9 % (04/30/23 05:53:00) Eos Auto: 2.3 % (04/30/23 05:53:00) Basophil Auto: 0.4 % (04/30/23 05:53:00) Neutro Absolute: 3.1 E9/L (04/30/23 05:53:00) Lymph Absolute: 1.3 E9/L (04/30/23 05:53:00) [place] Absolute: 0.4 E9/L (04/30/23 05:53:00) Eos Absolute: 0.1 E9/L (04/30/23 05:53:00) Basophil Absolute: 0 E9/L (04/30/23 05:53:00) Glucose (more content not included)... Normal [facility] Comment on above: Result Comment: Elec [...] ESWL 04/27/23 DX: Kidney Stone & BPH [facility] ER 04/28/23 CC: Chest pain & SOB [...] - 0.58 3. Aspirin long-term use (Z79.82: long-term (current) use of aspirin) Aspirin therapy 4. [...] after hematoma heals, pt will have no jail effects on kidney. Patient does not feel [...] In 1 month [facility] [address] , [place] [phone] Addition (more content not included)... Normal [facility] Comment on above: Result Comment: Elec tronically Signed By: Sean COPE MD\.br\Date and Time Signed: 05/08/23 12:52 EST\.br\Electronically Co-Signed By: Oliva Luna.br\Date and Time Co-Signed: 05/08/23 12:48 EST Blood Bank Slipon 05-05-2023 Blood Bank Slip [id number]#1 .00TIFF [facility] Blood Bank Slip [id number]#1 .00TIFF [facility] Consent for Blood Transfusio non 05-05-2023 Consent for Blood Transfusion [id number]#1 .00TIFF [facility] Discharge Instructionson Discharge Instructions [id number]#1 .00TIFF [facility] Lab Reportson 05-05-2023 Lab Reports [id number]#1 .00TIFF [facility] RAD - MISCon 05-05-2023 RAD - MISC [id number]#1 .00TIFF [facility] General Message Officeon General Message Office --- --- --- --- - -- --- --- --- --- From: Nishant DirectInbox To: JANICE SMYTH Sent: 05/02/23 02:30:58 AM EST Subject: Discharge Summary Ready to View A summary regarding your recent visit is available in the Documents section of your health record. [facility] OARRS Reporton 05-02-2023 OARRS Report [id number]#1 .00TIFF [facility] CHEMISTRYOrdered By: Bren FOSTER User on 05-01-2023 Glucose [Mass/Vol] 280 mg/dL High 55 - 99 mg/dL FT POC Subsection Comment on above: Result Comment: Christine PHILLIPS POC Username JOHANA SPAIN Invalid Interpretation Code [facility] POC Subsection Sodium [Moles/Vol] 442199169584 mmol/L Invalid Interpretation Code [facility] POC Subsection Sodium [Moles/Vol] 542876951 mmol/L Invalid Interpretation Code [facility] POC Subsection Glucose [Mass/Vol] 160 mg/dL High 55 - 99 mg/dL FT POC Subsection Comment on above: Result Comment: Christine PHILLIPS POC Username JOHANA SPAIN Invalid Interpretation Code [facility] POC Subsection Sodium [Moles/Vol] 080635917143 mmol/L Invalid Interpretation Code [facility] POC Subsection Sodium [Moles/Vol] 901239987 mmol/L Invalid Interpretation Code [facility] POC Subsection Capillary Glucose POCon Glucose [Mass/Vol] 280 mg/dL High 55-99 [facility] Comment on above: Result Comment: Christine PHILLIPS Performed By: #### 2 [id number] #### [facility] Laboratory [address] [place] [address] Glucose [Mass/Vol] 160 mg/dL High 55-99 [facility] Comment on above: Result Comment: Christine PHILLIPS Performed By: #### 2 [id number] ####[facility] [address] [place] [address] Discharge Note-Nursingon Discharge Note-Nursing JANICE SMYTH :1965 [...] None Pharmacy Information [facility] [place] , [facility] Discharge Instructions take Tylenol first and then Motrin as needed thereafter and he can use the Percocet as a last resort. Check an H&H on and will see you in the office a week from Monday. NO LIFTING OR EXERTION-NO DRIVING OR IN CAR PER UROLOGY. Previously Scheduled Follow-Up Appointments Monday 11:00 AM EST With: Sean COPE MD Where: [facility] HEMATOLOGYOrdered By: John Dumont on 05-01-2023 Hematocrit (Bld) [Volume fraction] 28.1 % Low 37.7 - 49.0 % [facility] HemeAutoSS Hemoglobin (Bld) [Mass/Vol] 9.9 g/dL Low 13.5 - 17.5 gm/dL [facility] HemeAutoSS HEMATOLOGYOrdered By: Jack Livingston on 05-01-2023 Hematocrit (Bld) [Volume fraction] 26.6 % Low 37.7 - 49.0 % [facility] HemeAutoSS Hemoglobin (Bld) [Mass/Vol] 9.4 g/dL Low 13.5 - 17.5 gm/dL [facility] HemeAutoSS Hct & Hgbon 05-01-2023 Hematocrit (Bld) [Volume fraction] 28.1 % Low 37.7-49.0 [facility] Comment on above: Performed By: #### 1 [id number], 40393841, 2390801, 70413361 #### [facility] [address] [place] [address] Hemoglobin (Bld) [Mass/Vol] 9.9 g/dL Low 13.5-17.5 [facility] Comment on above: Performed By: #### 1 4678503, 22400333, 0125827, 86331661 #### [facility] [address] [place] [address] Hematocrit (Bld) [Volume fraction] 26.6 % Low 37.7-49.0 [facility] Comment on above: Performed By: #### 7 [id number] #### [facility] [address] [place] [address] Hemoglobin (Bld) [Mass/Vol] 9.4 g/dL Low 13.5-17.5 [facility] Comment on above: Performed By: #### 7 [id number] #### [facility] [address] [place] [address] Hematocrit (Bld) [Volume fraction] 26.3 % Low 37.7-49.0 [facility] Comment on above: Performed By: #### 1 7183502, 00102849, 5969242, 00538049 #### [facility] [address] [place] [address] Hemoglobin (Bld) [Mass/Vol] 9.2 g/dL Low 13.5-17.5 [facility] Comment on above: Performed By: #### 1 1684557, 32107224, 1225890, 44933632 #### [facility] [address] [place] [address] Inpatient Clinical Summaryon 05-01-2023 Inpatient Clinical Summary [address] [address] Clinical Summary Person Information: Name: JANICE SMYTH Age: 57 Years : 1965 Sex: Male PCP: ANTONIO KITCHEN DO Marital Status: Race: White Ethnicity: Non- or Language: Japanese Visit Id: Visit Reason: Dizziness; Shortness of breath; Chest pain; CHEST PAIN Speciality: Acuity: Enc Type: Inpatient Med Service: Medical Arrival: 04/28/2023 20:35:17 Discharge: Dispo Type: Admitted as IP to this Hosp Address: [address] [place] [address] [place] [phone] Provider Notes: Diagnosis: 1:Chest pain; 2:Perinephric hematoma; [...] COPE [facility], [address] , [place] [address] Business (1) 05/08/2023 11:00 AM With: Address: When: ANTONIO KITCHEN [facility] [address] [facility] [address] [place], [place] [id number] Type Location Start [facility] [address] [facility] URO Office Visit [facility] ALAN [place] 05/08/2023 11:00 AM 05/08/2023 11:15 AM Confirmed Patient Education Information: Retroperitoneal Bleeding Normal [facility] Inpatient Patient Summaryon 05-01-2023 Inpatient Patient [...] Pending Diagnostic Test Results None Pharmacy Information [facility] [place] , [facility] [place] , Other: [facility] Discharge Instructions [...] ACOSTA, Sean Stovall Where: [facility] Inpatient Patient Summary [place] [id number] Patient Discharge Instructions PERSON INFORMATION Name: JANICE [...] Sean COPE [facility], [address], [place] [address] Business (1) 05/08/2023 11:00 AM With: Address: When: ANTONIO KITCHEN [address] [phone] In the event that this physician does not participate in your insurance network, please consult with your insurance company to find a nearby participating provider. Type Location Start [place] U[facility] Office Visit [facility] 05/08/2023 11:00 AM 05/08/2023 11:15 AM Confirmed Comment: DEONNA Beasley JAMES P, have received the attached patient education materials/instruction s and have verbalized understanding: Patient Signature Date Clinican/Nurse Signature Date HERE ARE THE MEDICATION CHANGES THAT OCCURRED DURING YOUR HOSPITAL STAY New Medications [id number], [address], [place] [id number], [phone] acetaminophen-oxycodo ne (Percocet 7.5/325 oral tablet) 2 [...] 0. amlodipine (am (more content not included)... [facility] Insurance Correspondence Off ice05-01-2023 Insurance Correspondence Office [id number]#1 .00TIFF [facility] Insurance Correspondence Office [id number]# 1.00TIFF [facility] Interdisciplinary Note - Mauricio e Manageron 05-01-2023 Interdisciplinary Note - Back Panel Padder Pt is awake and alert in bed, previously rounded with Stephanie COURT MAGISTRATE. Pt is aware of plan to DC home later today. PT is independent from home , will transport at DC, declines any concerns or DC needs. PCP verified and insurance information provided and white board updated. Contact information provided and white board updated. [facility] Comment on above: Result Comment: Elec tronically Signed By: Porfirio COY, Elda\.ravin\Date and Time Signed: 05/01/23 12:03 EST Monitor Recordon 05-01-2023 Monitor Record [id number]# 1.00TIFF Normal [facility] Monitor Record [id number]# 1.00TIFF Normal [facility] Monitor Record [id number]# 1.00TIFF Normal [facility] Monitor Record [id number]# 1.00TIFF Normal [facility] Provider Letteron 05-01-2023 Provider Letter May 01, 2023 JANICE SMYTH [address] [place] [id number] : 1965 To Whom It May Concern, [...] Sean Cope M.D., F.A.C.S. [facility] [address] [place], [place] [address] Faxed: Normal [facility] Auto Diffon 04-30-2023 Basophils/100 WBC (Bld) 0.4 % Normal 0.0-2.0 [facility] Comment on above: Order Comment: Order Added by Discern Expert. Performed By: #### 2 [id number] #### [facility] [address] [place] [address] Basophils/Leukocytes Auto (Bld) [Pure # fraction] 0.0 E9/L Normal 0.0-0.2 [facility] Comment on above: Order Comment: Order Added by Discern Expert. Performed By: #### 2 [id number] #### [facility] [address] [place] [address] Eosinophils/100 WBC (Bld) 2.3 % Normal 0.0-8.0 [facility] Comment on above: Order Comment: Order Added by Discern Expert. Performed By: #### 2 [id number] #### [facility] [address] [place] [address] Eosinophils/Leukocytes Auto (Bld) [Pure # fraction] 0.1 E9/L Normal 0.0-0.5 [facility] Comment on above: Order Comment: Order Added by Discern Expert. Performed By: #### 2 [id number] #### [facility] [address] [place] [address] Lymphocytes/100 WBC (Bld) 26.8 % Normal 14.0-50.0 [facility] Comment on above: Order Comment: Order Added by Discern Expert. Performed By: #### 2 [id number] #### [facility] [address] [place] [address] Lymphocytes/Leukocytes Auto (Bld) [Pure # fraction] 1.3 E9/L Normal 1.0-4.0 [facility] Comment on above: Order Comment: Order Added by Discern Expert. Performed By: #### 2 [id number] #### [facility] [address] [place] [address] Monocytes/100 WBC (Bld) 8.9 % Normal 4.0-14.0 [facility] Comment on above: Order Comment: Order Added by Discern Expert. Performed By: #### 2 [id number] #### [facility] [address] [place] [address] Monocytes/Leukocytes Auto (Bld) [Pure # fraction] 0.4 E9/L Normal 0.2-1.0 [facility] Comment on above: Order Comment: Order Added by Discern Expert. Performed By: #### 2 [id number] #### [facility] [address] [place] [address] Neutrophils/100 WBC (Bld) 61.6 % Normal 36.0-75.0 [facility] Comment on above: Order Comment: Order Added by Discern Expert. Performed By: #### 2 [id number] #### [facility] [address] [place] [address] Neutrophils/Leukocytes Auto (Bld) [Pure # fraction] 3.1 E9/L Normal 2.0-7.5 [facility] Comment on above: Order Comment: Order Added by Discern Expert. Performed By: #### 2 [id number] #### [facility] [address] [place] [address] BMPon 04-30-2023 Anion gap [Moles/Vol] 8 mmol/L Normal 6-16 [facility] Comment on above: Performed By: #### 2 [id number] #### [facility] [address] [place] [address] Calcium [Mass/Vol] 8.8 mg/dL Low 8.9-11.1 [facility] Comment on above: Performed By: #### 2 [id number] #### [facility] [address] [place] [address] Chloride [Moles/Vol] 105 mmol/L Normal 101-111 [facility] Comment on above: Performed By: #### 2 [id number] #### [facility] [address] [place] [address] CO2 [Moles/Vol] 31 mmol/L Normal 21-31 [facility] Comment on above: Performed By: #### 2 [id number] #### [facility] [address] [place] [address] Creatinine [Mass/Vol] 1.0 mg/dL Normal 0.5-1.3 [facility] Comment on above: Performed By: #### 2 [id number] #### [facility] [address] [place] [address] Glucose [Mass/Vol] 172 mg/dL Normal 55-199 [facility] Comment on above: Result Comment: If t his glucose result represents a fasting glucose, interpretation should refer to the following reference range: 55-99 mg/dL Performed By: #### 2 [id number] #### [facility] [address] [place] [address] Potassium [Moles/Vol] 3.9 mmol/L Normal 3.5-5.3 [facility] Comment on above: Performed By: #### 2 [id number] #### [facility] [address] [place] [address] Sodium [Moles/Vol] 140 mmol/L Normal 135-145 [facility] Comment on above: Performed By: #### 2 [id number] #### [facility] [address] [place] [address] Urea nitrogen [Mass/Vol] 14 mg/dL Normal 5-21 [facility] Comment on above: Performed By: #### 2 [id number] #### [facility] [address] [place] [address] Urea nitrogen/Creatinine [Mass ratio] 14 No Units Normal 10-20 [facility] Comment on above: Performed By: #### 2 [id number] #### [facility] [address] [place] [address] CBC w/ Auto Diffon 3 Erythrocyte distribution width (RBC) [Ratio] 13.7 % Normal 10.9-14.2 [facility] Comment on above: Performed By: #### 2 [id number] #### [facility] [address] [place] [address] Hematocrit (Bld) [Volume fraction] 27.2 % Low 37.7-49.0 [facility] Comment on above: Performed By: #### 2 [id number] #### [facility] [address] [place] [address] Hemoglobin (Bld) [Mass/Vol] 9.4 g/dL Low 13.5-17.5 [facility] Comment on above: Performed By: #### 2 [id number] #### [facility] [address] [place] [address] MCH (RBC) [Entitic mass] 28.5 pg Normal 27.0-34.0 [facility] Comment on above: Performed By: #### 2 [id number] #### [facility] [address] [place] [address] MCHC (RBC) [Mass/Vol] 34.5 g/dL Normal 31.4-36.0 [facility] Comment on above: Performed By: #### 2 [id number] #### [facility] [address] [place] [address] MCV (RBC) [Entitic vol] 82.5 fL Normal 80.0-100.0 [facility] Comment on above: Performed By: #### 2 [id number] #### [facility] [address] [place] [address] Platelet mean volume (Bld) [Entitic vol] 8.1 fL Normal 6.4-10.8 [facility] Comment on above: Performed By: #### 2 [id number] #### [facility] [address] [place] [address] Platelets (Bld) [#/Vol] 156.0 E9/L Normal 150.0-500.0 [facility] Comment on above: Performed By: #### 2 [id number] #### [facility] [address] [place] [address] RBC (Bld) [#/Vol] 3.3 E12/L Low 4.3-5.9 [facility] Comment on above: Performed By: #### 2 [id number] #### [facility] [address] [place] [address] WBC corrected for nucl RBC Auto (Bld) [#/Vol] 5.0 E9/L Normal 4.0-11.0 [facility] Comment on above: Performed By: #### 2 [id number] #### [facility] [address] [place] [address] CHEMISTRYOrdered By: Lab ROP User on 04-30-2023 Glucose [Mass/Vol] 250 mg/dL High 55 - 99 mg/dL [facility] POC Subsection Comment on above: Result Comment: Christine godwin RN/ POC Username GILSON SARMIENTO Invalid Interpretation Code [facility] POC Subsection Sodium [Moles/Vol] 669948535617 mmol/L Invalid Interpretation Code [facility] POC Subsection Sodium [Moles/Vol] 085877050 mmol/L Invalid Interpretation Code [facility] POC Subsection CHEMISTRYOrdered By: SYSTEM SYSTEM on 04-30-2023 Anion gap [Moles/Vol] 8 mmol/L Normal 6 - 16 mEq/L [facility] Remisol Calcium [Mass/Vol] 8.8 mg/dL Low 8.9 - 11. 1 mg/dL [facility] Remisol Chloride [Moles/Vol] 105 mmol/L Normal 101 - 1 11 mmol/L [facility] Remisol CO2 [Moles/Vol] 31 mmol/L Normal 21 - 31 mmol/L [facility] Remisol Creatinine [Mass/Vol] 1.0 mg/dL Normal 0.5 - 1.3 mg/dL [facility] Remisol GFR/1.73 sq M.predicted among non-blacks MDRD (S/P/Bld) [Vol rate/Area] 87 mL/min/1.73 m2 Normal >=59mL/min/1 .73 m2 [facility] Chem S Comment on above: Interpretive Data: C hronic kidney disease could be indicated at eGFR's of less than 60 mL/min/1.73m2. Kidney failure is indicated at less than 15 mL/min/1.73m2. Glucose [Mass/Vol] 172 mg/dL Normal 55 - 199 mg/dL [facility] Remisol Comment on above: Interpretive Data: I f this glucose result represents a fasting glucose, interpretation should refer to the following reference range: 55-99 mg/dL Potassium [Moles/Vol] 3.9 mmol/L Normal 3.5 - 5.3 mmol/L [facility] Remisol Sodium [Moles/Vol] 140 mmol/L Normal 135 - 145 mmol/L [facility] Remisol Urea nitrogen [Mass/Vol] 14 mg/dL Normal 5 - 21 mg/dL [facility] Remisol Urea nitrogen/Creatinine [Mass ratio] 14 mg/mg Normal 10 - 20 [facility] Remisol CT Abdomen/Pelvis w/ Contras ton 04-30-2023 [...] Oral contrast amount in ml's: 0 Normal [facility] Capillary Glucose POCon 12-0 Glucose [Mass/Vol] 250 mg/dL High 55-99 [facility] Comment on above: Result Comment: Christine PHILLIPS Performed By: #### 2 [id number] ####[facility] [address] [place] [address] Glucose [Mass/Vol] 191 mg/dL High 55-99 [facility] Comment on above: Result Comment: Christine PHILLIPS Performed By: #### 2 [id number] ####[facility] [address] [place] [address] Glucose [Mass/Vol] 196 mg/dL High 55-99 [facility] Comment on above: Result Comment: Christine PHILLIPS Performed By: #### 1 [id number], [id number], [id number], [id number] #### [facility] [address] [place] [address] Glucose [Mass/Vol] 150 mg/dL High 55-99 [facility] Comment on above: Result Comment: Christine PHILLIPS Performed By: #### 1 [id number], [id number], 8852561, [id number] #### [facility] [address] [place] [address] Glucose [Mass/Vol] 154 mg/dL High 55-99 [facility] Comment on above: Result Comment: Lucina edison Meter Performed By: #### 1 [id number], [id number], [id number], [id number] #### [facility] [address] [place] [address] Glucose [Mass/Vol] 211 mg/dL High 55-99 [facility] Comment on above: Result Comment: Christine godwin RN/ Performed By: #### 1 [id number], [id number], 9609111, [id number] #### [facility] [address] [place] [address] HEMATOLOGYOrdered By: Jack Livingston on 04-30-2023 Hematocrit [...] 13.7 % Normal 10.9 - 14.2 % FT HemeAutoSS MCH (RBC) [Entitic mass] 28.5 pg Normal 27.0 - 34.0 pg FT HemeAutoSS MCHC (RBC) [Mass/Vol] 34.5 g/dL Normal 31.4 - 36.0 gm/dL FT [facility] MCV (RBC) [Entitic vol] 82.5 fL Normal 80.0 - 100.0 fL FT [facility] Platelet mean volume (Bld) [Entitic vol] 8.1 fL Normal 6.4 - 10.8 fL FT [facility] Platelets (Bld) [#/Vol] 156.0 E9/L Normal 150.0 - 500.0 E9/L FT [facility] RBC (Bld) [#/Vol] 3.3 E12/L Low 4.3 - 5.9 E12/L FT [facility] WBC corrected for nucl RBC Auto (Bld) [#/Vol] 5.0 E9/L Normal 4.0 - 11.0 E9/L [facility] HemeAutoSS Hct & Hgbon 04-30-2023 Hematocrit (Bld) [Volume fraction] 30.1 % Low 37.7-49.0 [facility] Comment on above: Performed By: #### 1 [id number], [id number], 6342936, [id number] #### [facility] [address] [place] [address] Hemoglobin (Bld) [Mass/Vol] 10.4 g/dL Low 13.5-17.5 [facility] Comment on above: Performed By: #### 1 [id number], [id number], 9896840, 83664482 #### [facility] [address] [place] [address] Hematocrit (Bld) [Volume fraction] 30.2 % Low 37.7-49.0 [facility] Comment on above: Performed By: #### 1 [id number], [id number], 7663850, 30998620 #### [facility] [address] [place] [address] Hemoglobin (Bld) [Mass/Vol] 10.4 g/dL Low 13.5-17.5 [facility] Comment on above: Performed By: #### 1 [id number], 84721678, 9221537, 18598783 #### [facility] [address] [place] [address] Hematocrit (Bld) [Volume fraction] 26.5 % Low 37.7-49.0 [facility] Comment on above: Performed By: #### 2 [id number] #### [facility] [address] [place] [address] Hemoglobin (Bld) [Mass/Vol] 9.3 g/dL Low 13.5-17.5 [facility] Comment on above: Performed By: #### 2 [id number] #### [facility] [address] [place] [address] Interdisciplinary Note - Mauricio e Manageron 04-30-2023 Interdisciplinary Note - Back Panel Padder CRM to room to discuss DC Planning. Patient is awake, alert and oriented. Patient is from home with his spouse, she will transport at [place]. Patient verified PCP, home DME and insurance. Patient on 04/27 had a Right ESWL came back in 04/28 with a retroperitoneal Hematoma. Patient got blood transfusion on 04/29. Patient is assigned to [facility] , see notes. Patient has urology consult. Patient denied any DC need from CRM for HH, DME and PM. Patient was provided CRM contact, white board updated. Anticipated DC TBD. CRM following Normal [facility] Comment on above: Result Comment: Elec tronically Signed By: Sarah Choi\.ravin\Date and Time Signed: 04/30/23 13:30 EST Monitor Recordon 04-30-2023 Monitor Record [id number]# 1.00TIFF Normal [facility] Monitor Record [id number]# 1.00TIFF Normal [facility] Monitor Record [id number]# 1.00TIFF Normal [facility] Progress Note-Physicianon Progress Note-Physician Patient: JANICE [...] Type 2 diabetes mellitus / SNOMED CT 772626767 / Confirmed Coronary artery disease / SNOMED CT 01996591 / Confirmed Anxiety / SNOMED CT 96727237 / Confirmed Hypertensive disorder / SNOMED CT 4422432340 / Confirmed Long-term current use of anticoagulant / SNOMED CT 2377233582 / Confirmed Personal history of malignant melanoma of skin / SNOMED CT 9034473274 / Confirmed Plaque psoriasis / SNOMED CT 014446527 / Confirmed Psoriatic arthritis / SNOMED CT 155358317 / Confirmed ST elevation myocardial infarction involving left anterior descending coronary artery / SNOMED CT 18699691 / Confirmed Kidney stones / SNOMED CT 085272638 / Confirmed BPH (benign prostatic hyperplasia) / SNOMED CT 114382355 / Confirmed Aspirin long-term use / SNOMED CT 9988680369 / Confirmed Degenerative joint disease / SNOMED CT 0756902950 / Confirmed Arthritis / SNOMED CT 7558021 / Confirmed Glaucoma / SNOMED CT 12891061 / Confirmed Depression / SNOMED CT 54486518 / Confirmed Intermittent chest pain / SNOMED CT 03064681 / Confirmed High blood pressure / SNOMED CT 2907758759 / Confirmed Histories Past Medical History: Resolved STEMI - ST elevation myocardial infarction (4861829954): Onset on 12/26/2019 at 54 years. Resolved. Diabetes type (5761604434): Resolved. Family History: Diabetes mellitus type 1 Father Prostate cancer Father Procedure history: Total RIGHTknee arthroplasty (5615150362) on 02/07/2023 at 57 Years. Cardiac catheterisation (450892148) on 02/24/2020 at 54 Years. PCI - Percutaneous coronary intervention (4988650893) on 12/26/2019 at 54 Years. Coronary artery stent (6893628500) on 12/26/2019 at 54 Years. 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 Cystoscopy (5187048482) on 07/26/2018 at 52 Years. Radiofrequency ablation SI joint (6442577555) on 09/22/2017 at 51 Years. Laser of prostate w/ green light pvp (918394507) on 07/12/2017 at 51 Years. Cystourethroscopy with dilation of urethral stricture (571635447) on 06/08/2017 at 51 Years. 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 Comments: 12/26/2019 9:24 Lesvia Robbins RN rotater cuff Fracture of hand with metal pins (18997132) in 2003 at 38 Years. Tonsillectomy (441848082) in 2001 at 36 Years. ACL - Anterior cruciate ligament deficiency (588561280) in 1978 at 13 Years. Femur (103643886) in 1973 at 8 Years. Comments: 12/26/2019 9:22 Lesvia Robbins RN tumor removed femur Social History Social & Psychosocial Habits Alcohol 04/29/2023 Risk Assessment: Low Risk 04/29/2023 Use: Current Type: Liquor Frequency: Daily Comment: 2-3 drinks/day - 01/16/2023 07:41 - Joséy ANNELIESE, Brittaney Stovall Substance Abuse 04/29/2023 Risk Assessment: [...] Cap 196 mg/dL HI POC Device SN [id number] POC User ID [id number] POC Username POC Username 04/30/2023 11:04 EST HGB 10.4 gm/dL LOW Hct 30.2 % LOW 04/30/2023 7:56 EST Glucose Cap 150 mg/dL HI POC Device SN [id number] POC User ID [id number] POC Username POC Username 04/30/2023 6:25 EST Glucose Cap 154 mg/dL HI POC Device SN [id number] POC User ID [id number] POC Username RD CRUMP 04/30/2023 5:53 EST WBC 5.0 E9/L RBC 3.3 E12/L LOW HGB 9.3 gm/dL LOW HGB 9.4 gm/dL LOW Hct 26.5 % LOW Hct 27.2 % LOW MCV 82.5 fL MCH 28.5 pg MCHC 34.5 gm/dL RDW 13.7 % Platelet 156.0 E9/L MPV 8.1 (more content not included)... Normal [facility] Comment on above: Result Comment: Elec tronically Signed By: PRISCA ACOSTA, Sean Michaud.ravin\Date and Time Signed: 04/30/23 14:56 EST eGFRon 04-30-2023 GFR/1.73 sq M.predicted among non-blacks MDRD (S/P/Bld) [Vol rate/Area] 87 mL/min/1.73 m2 Normal >=59 [facility] Comment on above: Order Comment: Order added by Discern Expert. Result Comment: Environmental Services Attendant juliana kidney disease could be indicated at eGFR's of less than 60 mL/min/1.73m2. Kidney failure is indicated at less than 15 mL/min/1.73m2. Performed By: #### 2 [id number] #### [facility] [address] [place] [address] ABO/Rhon 04-29-2023 ABO/Rh Positive Invalid Interpretation Code [facility] Comment on above: Performed By: #### 1 [id number], [id number], 4109183, [id number] #### [facility] [address] [place] [address] ABO/Rh History Checkon 04-29 ABO/Rh History Check Verified Hx Blood Type Normal [facility] Comment on above: Performed By: #### 1 [id number], 47925983, 3996879, [id number] #### [facility] [address] [place] [address] ABSCon 04-29-2023 ABSC Gel Interp Negative Normal [facility] Comment on above: Performed By: #### 1 [id number], 59786403, 2523110, 74106321 #### [facility] [address] [place] [address] Auto Diffon 04-29-2023 Basophils/100 WBC (Bld) 0.5 % Normal 0.0-2.0 [facility] Comment on above: Order Comment: Order Added by Discern Expert. Performed By: #### 1 [id number], 45128781, 2126602, 53368889 #### [facility] [address] [place] [address] Basophils/Leukocytes Auto (Bld) [Pure # fraction] 0.0 E9/L Normal 0.0-0.2 [facility] Comment on above: Order Comment: Order Added by Discern Expert. Performed By: #### 1 [id number], 56683232, 8600610, 98073188 #### [facility] [address] [place] [address] Eosinophils/100 WBC (Bld) 1.0 % Normal 0.0-8.0 [facility] Comment on above: Order Comment: Order Added by Discern Expert. Performed By: #### 1 4615580, 66757794, 7273524, 20383789 #### [facility] [address] [place] [address] Eosinophils/Leukocytes Auto (Bld) [Pure # fraction] 0.1 E9/L Normal 0.0-0.5 [facility] Comment on above: Order Comment: Order Added by Yony Expert. Performed By: #### 1 5107739, 75591904, 5173297, 16627085 #### [facility] [address] [place] [address] Lymphocytes/100 WBC (Bld) 31.6 % Normal 14.0-50.0 [facility] Comment on above: Order Comment: Order Added by Yony Expert. Performed By: #### 1 1186715, 17027174, 4496321, 29969321 #### [facility] [address] [place] [address] Lymphocytes/Leukocytes Auto (Bld) [Pure # fraction] 1.9 E9/L Normal 1.0-4.0 [facility] Comment on above: Order Comment: Order Added by Yony Expert. Performed By: #### 1 3781837, 32412796, 5888378, 74881107 #### [facility] [address] [place] [address] Monocytes/100 WBC (Bld) 9.5 % Normal 4.0-14.0 [facility] Comment on above: Order Comment: Order Added by Yony Expert. Performed By: #### 1 5470117, 68168450, 7592696, 50299619 #### [facility] [address] [place] [address] Monocytes/Leukocytes Auto (Bld) [Pure # fraction] 0.6 E9/L Normal 0.2-1.0 [facility] Comment on above: Order Comment: Order Added by Yony Expert. Performed By: #### 1 1444410, 80413492, 4463467, 45179386 #### [facility] [address] [place] [address] Neutrophils/100 WBC (Bld) 57.4 % Normal 36.0-75.0 [facility] Comment on above: Order Comment: Order Added by Discern Expert. Performed By: #### 1 6217366, 00178077, 8346897, 18077209 #### [facility] [address] [place] [address] Neutrophils/Leukocytes Auto (Bld) [Pure # fraction] 3.5 E9/L Normal 2.0-7.5 [facility] Comment on above: Order Comment: Order Added by Discern Expert. Performed By: #### 1 9780954, 93525277, 3937331, 29472275 #### [facility] [address] [place] [address] BLOOD BANKOrdered By: Christa Calhoun on 04-29-2023 ABO/Rh Interp Positive Invalid Interpretation Code [facility] BB Subsection ABSC Gel Interp Negative (04/29/23 2:38 PM) Normal [facility] BB Subsection BMPon 04-29-2023 Creatinine [Mass/Vol] 1.2 mg/dL Normal 0.5-1.3 [facility] Comment on above: Order Comment: Waiti maciej to hear from if this can be added on to AM labs. HH Performed By: #### 1 7517449, 75253512, 1117998, 56490338 #### [facility] [address] [place] [address] Urea nitrogen [Mass/Vol] 18 mg/dL Normal 5-21 [facility] Comment on above: Order Comment: Johnna wing to hear from if this can be added on to AM labs. HH Performed By: #### 1 [id number], 83246840, 8410166, [id number] #### [facility] [address] [place] [address] Urea nitrogen/Creatinine [Mass ratio] 15 No Units Normal 10-20 [facility] Comment on above: Order Comment: Johnna wnig to hear from if this can be added on to AM labs. HH Performed By: #### 1 3880670, 60334736, 9727962, 89134513 #### [facility] [address] [place] [address] Anion gap [Moles/Vol] 8 mmol/L Normal 6-16 [facility] Comment on above: Order Comment: Johnna wing to hear from if this can be added on to AM labs. HH Performed By: #### 1 [id number], [id number], [id number], [id number] #### [facility] [address] [place] [address] Calcium [Mass/Vol] 8.5 mg/dL Low 8.9-11.1 [facility] Comment on above: Order Comment: Johnna wing to hear from if this can be added on to AM labs. HH Performed By: #### 1 [id number], [id number], [id number], [id number] #### [facility] [address] [place] [address] Chloride [Moles/Vol] 104 mmol/L Normal 101-111 [facility] Comment on above: Order Comment: Johnna wing to hear from if this can be added on to AM labs. HH Performed By: #### 1 [id number], [id number], [id number], [id number] #### [facility] [address] [place] [address] CO2 [Moles/Vol] 29 mmol/L Normal 21-31 [facility] Comment on above: Order Comment: Johnna wing to hear from if this can be added on to AM labs. HH Performed By: #### 1 [id number], [id number], 8888559, [id number] #### [facility] [address] [place] [address] Glucose [Mass/Vol] 165 mg/dL Normal 55-199 [facility] Comment on above: Order Comment: Johnna wing to hear from if this can be added on to AM labs. HH Result Comment: If t his glucose result represents a fasting glucose, interpretation should refer to the following reference range: 55-99 mg/dL Performed By: #### 1 [id number], [id number], [id number], [id number] #### [facility] [address] [place] [address] Potassium [Moles/Vol] 4.0 mmol/L Normal 3.5-5.3 [facility] Comment on above: Order Comment: Johnna wing to hear from if this can be added on to AM labs. HH Performed By: #### 1 [id number], [id number], [id number], [id number] #### [facility] [address] [place] [address] Sodium [Moles/Vol] 137 mmol/L Normal 135-145 [facility] Comment on above: Order Comment: Johnna wing to hear from if this can be added on to AM labs. HH Performed By: #### 1 [id number], [id number], 3196605, [id number] #### [facility] [address] [place] [address] Anion gap [Moles/Vol] 8 mmol/L Normal 6-16 [facility] Comment on above: Order Comment: dakota robins had an H&H drawn at 300am and has q 6 hour orders from there. [facility] 04/29/2023 03:19:14 EST Performed By: #### 1 [id number], [id number], 2372839, [id number] #### [facility] [address] [place] [address] Calcium [Mass/Vol] 8.6 mg/dL Low 8.9-11.1 [facility] Comment on above: Order Comment: dakota robins had an H&H drawn at 300am and has q 6 hour orders from there. [facility] 04/29/2023 03:19:14 EST Performed By: #### 1 [id number], [id number], [id number], [id number] #### [facility] [address] [place] [address] Chloride [Moles/Vol] 104 mmol/L Normal 101-111 [facility] Comment on above: Order Comment: dakota robins had an H&H drawn at 300am and has q 6 hour orders from there. [facility] 04/29/2023 03:19:14 EST Performed By: #### 1 [id number], [id number], 8559981, [id number] #### [facility] [address] [place] [address] CO2 [Moles/Vol] 27 mmol/L Normal 21-31 [facility] Comment on above: Order Comment: dakota robins had an H&H drawn at 300am and has q 6 hour orders from there. [facility] 04/29/2023 03:19:14 EST Performed By: #### 1 [id number], [id number], 2350772, [id number] #### [facility] [address] [place] [address] Creatinine [Mass/Vol] 1.2 mg/dL Normal 0.5-1.3 [facility] Comment on above: Order Comment: dakota robins had an H&H drawn at 300am and has q 6 hour orders from there. [facility] 04/29/2023 03:19:14 EST Performed By: #### 1 [id number], [id number], 9554928, [id number] #### [facility] [address] [place] [address] Glucose [Mass/Vol] 181 mg/dL Normal 55-199 [facility] Comment on above: Order Comment: dakota robins had an H&H drawn at 300am and has q 6 hour orders from there. [facility] 04/29/2023 03:19:14 EST Result Comment: If t his glucose result represents a fasting glucose, interpretation should refer to the following reference range: 55-99 mg/dL Performed By: #### 1 [id number], [id number], 0140162, [id number] #### [facility] [address] [place] [address] Potassium [Moles/Vol] 4.1 mmol/L Normal 3.5-5.3 [facility] Comment on above: Order Comment: dakota robins had an H&H drawn at 300am and has q 6 hour orders from there. [facility] 04/29/2023 03:19:14 EST Performed By: #### 1 [id number], [id number], 8327933, [id number] #### [facility] [address] [place] [address] Sodium [Moles/Vol] 135 mmol/L Normal 135-145 [facility] Comment on above: Order Comment: dakota robins had an H&H drawn at 300am and has q 6 hour orders from there. [facility] 04/29/2023 03:19:14 EST Performed By: #### 1 [id number], [id number], 2167495, [id number] #### [facility] [address] [place] [address] Urea nitrogen [Mass/Vol] 19 mg/dL Normal 5-21 [facility] Comment on above: Order Comment: dakota robins had an H&H drawn at 300am and has q 6 hour orders from there. [facility] 04/29/2023 03:19:14 EST Performed By: #### 1 [id number], [id number], 4619262, [id number] #### [facility] [address] [place] [address] Urea nitrogen/Creatinine [Mass ratio] 16 No Units Normal 10-20 [facility] Comment on above: Order Comment: dakota robins had an H&H drawn at 300am and has q 6 hour orders from there. [facility] 04/29/2023 03:19:14 EST Performed By: #### 1 [id number], 58966175, 1373758, [id number] #### [facility] [address] [place] [address] Blood Bank ID#on 04-29-2023 BBID# [id number] Invalid Interpretation Code [facility] Comment on above: Performed By: #### 1 [id number], 10063291, 9582284, [id number] #### [facility] [address] [place] [address] CBC w/ Auto Diffon 3 Erythrocyte distribution width (RBC) [Ratio] 14.0 % Normal 10.9-14.2 [facility] Comment on above: Order Comment: Spoke with Violetta Gabriel Do not need CBC and H&H ...Run off extra Lav from AM labs Performed By: #### 1 4407431, [id number], 1162799, [id number] #### [facility] [address] [place] [address] Hematocrit (Bld) [Volume fraction] 22.5 % Low 37.7-49.0 [facility] Comment on above: Order Comment: Spoke with Violetta Gabriel Do not need CBC and H&H ...Run off extra Lav from AM labs Performed By: #### 1 9099160, 61073299, 6755534, 45488738 #### [facility] [address] [place] [address] Hemoglobin (Bld) [Mass/Vol] 7.7 g/dL Low 13.5-17.5 [facility] Comment on above: Order Comment: Spoke with Violetta Gabriel Do not need CBC and H&H ...Run off extra Lav from AM labs Performed By: #### 1 1383997, 49749717, 4472225, 42369991 #### [facility] [address] [place] [address] MCH (RBC) [Entitic mass] 28.3 pg Normal 27.0-34.0 [facility] Comment on above: Order Comment: Spoke with Violetta Gabriel Do not need CBC and H&H ...Run off extra Lav from AM labs Performed By: #### 1 2861323, 77253612, 8314033, 74584469 #### [facility] [address] [place] [address] MCHC (RBC) [Mass/Vol] 34.3 g/dL Normal 31.4-36.0 [facility] Comment on above: Order Comment: Spoke with Violetta Gabriel Do not need CBC and H&H ...Run off extra Lav from AM labs Performed By: #### 1 [id number], [id number], 0783449, 85417174 #### [facility] [address] [place] [address] MCV (RBC) [Entitic vol] 82.4 fL Normal 80.0-100.0 [facility] Comment on above: Order Comment: Spoke with Violetta Gabriel Do not need CBC and H&H ...Run off extra Lav from AM labs Performed By: #### 1 7480352, 12188716, 9213904, 62716405 #### [facility] [address] [place] [address] Platelet mean volume (Bld) [Entitic vol] 8.7 fL Normal 6.4-10.8 [facility] Comment on above: Order Comment: Spoke with Violetta Gabriel Do not need CBC and H&H ...Run off extra Lav from AM labs Performed By: #### 1 [id number], 83528135, 0569761, [id number] #### [facility] [address] [place] [address] Platelets (Bld) [#/Vol] 147.0 E9/L Low 150.0-500.0 [facility] Comment on above: Order Comment: Spoke with Violetta Gabriel Do not need CBC and H&H ...Run off extra Lav from AM labs Performed By: #### 1 7715753, 06245350, 4529738, 60049592 #### [facility] [address] [place] [address] RBC (Bld) [#/Vol] 2.7 E12/L Low 4.3-5.9 [facility] Comment on above: Order Comment: Spoke with Violetta Gabriel Do not need CBC and H&H ...Run off extra Lav from AM labs Performed By: #### 1 [id number], 27568437, 4477830, 69623250 #### [facility] [address] [place] [address] WBC corrected for nucl RBC Auto (Bld) [#/Vol] 6.0 E9/L Normal 4.0-11.0 [facility] Comment on above: Order Comment: Spoke with Violetta Gabriel Do not need CBC and H&H ...Run off extra Lav from AM labs Performed By: #### 1 [id number], [id number], 9822705, 27923784 #### [facility] [address] [place] [address] CHEMISTRYOrdered By: SYSTEM SYSTEM on 04-29-2023 Anion gap [Moles/Vol] 8 mmol/L Normal 6 - 16 mEq/L [facility] Calcium [Mass/Vol] 8.5 mg/dL Low 8.9 - 11. 1 mg/dL [facility] Chloride [Moles/Vol] 104 mmol/L Normal 101 - 1 11 mmol/L [facility] CO2 [Moles/Vol] 29 mmol/L Normal 21 - 31 mmol/L [facility] Creatinine [Mass/Vol] 1.2 mg/dL Normal 0.5 - 1.3 mg/dL [facility] GFR/1.73 sq M.predicted among non-blacks MDRD (S/P/Bld) [Vol rate/Area] 70 mL/min/1.73 m2 Normal >=59mL/min/1 .73 m2 [facility] Chem S Comment on above: Interpretive Data: [...] mg/dL Normal 1.3 - 2 .4 mg/dL [facility] Potassium [Moles/Vol] 4.0 mmol/L Normal 3.5 [...] 27 mmol/L Normal 21 - 31 mmol/L [facility] Creatinine [Mass/Vol] 1.2 mg/dL Normal 0.5 - 1.3 mg/dL [facility] Remisol GFR/1.73 sq M.predicted among non-blacks MDRD (S/P/Bld) [Vol rate/Area] 70 mL/min/1.73 m2 Normal >=59mL/min/1 .73 m2 [facility] Chem S Comment on above: Interpretive Data: C hronic kidney disease could be indicated at eGFR's of less than 60 mL/min/1.73m2. Kidney failure is indicated at less than 15 mL/min/1.73m2. Glucose [Mass/Vol] 181 mg/dL Normal 55 - 199 mg/dL [facility] Remisol Comment on above: Interpretive Data: I f this glucose result represents a fasting glucose, interpretation should refer to the following reference range: 55-99 mg/dL Potassium [Moles/Vol] 4.1 mmol/L Normal 3.5 - 5.3 mmol/L [facility] Sodium [Moles/Vol] 135 mmol/L Normal 135 - 145 mmol/L [facility] Remisol Troponin I.cardiac [Mass/Vol] 29.60 pg/mL Normal 15.90 - 38.40 pg/mL [facility] Remisol Comment on above: Interpretive Data: T he 95% CI (Confidence Interval) PPV (Positive Predictive Value) for myocardial infarction in females is 38 pg/mL, in males 51 pg/mL. The results should be used in conjunction with clinical conditions of myocardial infarction. (Access High Sensitivity Troponin I Instructions For Use, [employer], December 2017) Urea nitrogen [Mass/Vol] 19 mg/dL Normal 5 - 21 mg/dL [facility] Urea nitrogen/Creatinine [Mass ratio] 16 mg/mg Normal 10 - 20 [facility] Troponin I.cardiac [Mass/Vol] 22.70 pg/mL Normal 15.90 - 38.40 pg/mL [facility] Comment on above: Interpretive Data: T he 95% CI (Confidence Interval) PPV (Positive Predictive Value) for myocardial infarction in females is 38 pg/mL, in males 51 pg/mL. The results should be used in conjunction with clinical conditions of myocardial infarction. (Access High Sensitivity Troponin I Instructions For Use, [employer], December 2017) Troponin I.cardiac [Mass/Vol] 21.10 pg/mL Normal 15.90 - 38.40 pg/mL [facility] Comment on above: Interpretive Data: T he 95% CI (Confidence Interval) PPV (Positive Predictive Value) for myocardial infarction in females is 38 pg/mL, in males 51 pg/mL. The results should be used in conjunction with clinical conditions of myocardial infarction. (Access High Sensitivity Troponin I Instructions For Use, [place], December 2017) CHEMISTRYOrdered By: Hunter Culver on 04-29-2023 HbA1c (Bld) [Mass fraction] 8.2 % High <=5.9% [facility] ChemAutoSS CT Abdomen/Pelvis w/ Contras ton 04-29-2023 [...] Oral contrast amount in ml's: 0 Normal [facility] CTA Cheston 04-29-2023 CTA Chest Exam [...] 370 Contrast amount in ml's: 100 Normal [facility] Capillary Glucose POCon 12-0 Glucose [Mass/Vol] 175 mg/dL High 55- [facility] Comment on above: Result Comment: Lucina edison Meter Performed By: #### 1 [id number], [id number], [id number], [id number] #### [facility] [address] [place] [address] Glucose [Mass/Vol] 139 mg/dL High 55-99 [facility] Comment on above: Result Comment: Christine PHILLIPS Performed By: #### 2 [id number] ####[facility] [address] [place] [address] Glucose [Mass/Vol] 143 mg/dL High 55-99 [facility] Comment on above: Result Comment: Christine PHILLIPS Performed By: #### 2 [id number] ####[facility] [address] [place] [address] Glucose [Mass/Vol] 162 mg/dL High 55-99 [facility] Comment on above: Result Comment: Christine PHILLIPS Performed By: #### 2 [id number] ####[facility] [address] [place] [address] Glucose [Mass/Vol] 168 mg/dL High 55-99 [facility] Comment on above: Result Comment: Lucina edison Meter Performed By: #### 1 [id number], [id number], 4080355, 70440708 #### [facility] [address] [place] [address] Glucose [Mass/Vol] 278 mg/dL High 55-99 [facility] Comment on above: Result Comment: Christine PHILLIPS Performed By: #### 1 [id number], [id number], 3331423, 69765414 #### [facility] [address] [place] [address] Consultation Noteon 04-29-20 Consultation Note Patient: JANICE SMYTH Age: 57 years Sex: Male : 1965 Associated Diagnoses: None Author: PRISCA ACOSTA, Sean Stovall Chief Complaint 04/29/2023 0:07 EST CP and abdominal pain 04/28/2023 20:38 EST Pt. came here d/t chest pain moves to both shoulder and back, SOB that started today. Pt got Sx ysterday by Dr. cope at [facility], after being deischarge he felt lightheaded and [...] Daily, # 90 tab(s), Refills(s) 3, Pharmacy: [facility], 186, cm, 10/20/20 11:38:00 EDT, Height/Length Dosing, 96, kg, 10/20/20 11:38:00 EDT, Weight Dosing losartan 100 mg Tab: 100 mg = 1 tab(s), Oral, Daily, # 90 tab(s), Refills(s) 2, Pharmacy: [facility]/pharmacy #[id number], 188, cm, 01/16/23 7:42:00 EDT, Height/Length Dosing, 97, kg, 01/16/23 7:42:00 EDT, Weight Dosing nitroglycerin 0.4 mg sublingual Tab: 0.4 mg = 1 tab(s), SubLingual, q5min, PRN Chest pain, not to exceed 3 doses/15 min--if pain persists, seek medical attention, # 30 tab(s), Refills(s) 0, Pharmacy: [facility]/pharmacy #[id number], 185.4, cm, 02/21/20 20:48:00 EDT, Height/Length Dosing, 93.7, kg, 09... Documented Medications Documented Fish Oil: 500 mg, Oral, Daily, Refill(s) 0, Prophylaxis Multivitamins and Minerals: 1 tab, Oral, Daily, Refill(s) 0, Prophylaxis Rybelsus 7 mg oral tablet: 90 EA, TAKE 1 TAB AT LEAST 30MIN. BEFORE FIRST FOOD, DRINK, OR OTHER ORAL MEDS OF THE DAY, Refills(s) 0, Blood glucose Tobiastz Autoinjector: 80 mg, SubCutaneous, q4wk, Refills(s) 0, [...] bedtime) shaheen (more content not included)... Normal [facility] Comment on above: Result Comment: Elec tronically Signed By: PRISCA ACOSTA, Sean Michaud.ravin\Date and Time Signed: 04/29/23 12:47 EST ED Clinical Summaryon 2022 ED Clinical Summary [address] [address] ED Clinical Summary Person Information Name: JANICE SMYTH/[facility] Age: 57 Years : 1965 Sex: Male Language: Japanese PCP: ANTONIO KITCHEN DO Marital Status: Visit Id: Visit Reason: Dizziness; Shortness of breath; Chest pain; CHEST PAIN Speciality: Acuity: 2 Enc Type: Observation Med Service: Emergency Arrival: 04/28/2023 20:35:17 Discharge: LOS: 000 02:56 Checkin: 04/28/2023 20:35:17 Checkout: 04/28/2023 23:31:43 Dispo Type: Admitted as IP to this [facility] EVENTS: Event Name Event Status [...] 04/28/2023 23:30:25 04/28/2023 23:30:25 04/28/2023 23:30:25 ADDRESS: [id number] [facility] [id number] PHYS DOC NOTES: MEDICAL INFORMATION: Prescriptions Given: [...] Chest pain; Perinephric hematoma; Retroperitoneal hematoma Normal [facility] ED Note-Physicianon 04-29-20 ED Note-Physician Basic Information Time Seen: Michelet ROTH Gorancarlotta Grant 04/28/2023 20:38 Chief Complaint Pt. came here d/t chest pain moves to both shoulder and back, SOB that started today. Pt got Sx ysterday by Dr. cope at [facility], after being deischarge he felt lightheaded and dizzy the whole night. 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 Got 1 nitro History of Present Illness Patient is a 57-year-old male with a history of [place] with stent placed in 2019, HTN, hyperlipidemia, [...] a lithotripsy yesterday with Dr. Cope (at [facility]) and since that procedure, he endorses some [...] and Complexity of Problems Differential Diagnosis: [] [facility] Data External documents reviewed: [] My [...] 61 minute(s), (more content not included)... Normal [facility] Comment on above: Result Comment: Elec tronically Signed By: Doug Tafoya DO\.br\Date and Time Signed: 04/28/23 23:07 EST ED Patient Education Noteon 04-29-2023 ED Patient Education Note Normal [facility] ED Patient Summaryon 023 ED Patient Summary [place] [id number] Patient Discharge Instructions Person Information Name: JANICE SMYTH Age: 57 Years Arrival Date: 04/28/2023 20:35:17 Discharge Diagnosis: Chest pain; Perinephric hematoma; Retroperitoneal hematoma Primary Care Physician: ANTONIO KITCHEN DO Provider Information Primary Provider: Doug Tafoya DO Advanced Business Account Executive:None The exam and treatment you received in the Emergency Department were for an urgent problem and are not intended as complete care. It is important that you follow up with a doctor, nurse practitioner, or physician?s environmental services assistant for ongoing care. If your symptoms [...] opioids can be used to help relieve hkuqjwsc-vj-tpgmkj pain and are often prescribed following a [...] be struggling with addiction, tell your health health care manager and ask for guidance or call [facility] National Helpline at 4-672-426-RQPP. h Source: [place] Department of Health and Human Services/Center for Disease Control & Prevention [facility] Medications Giv (more content not included)... Normal [facility] EMS Documentationon 04-29-20 EMS Documentation Please click on link to see report Normal [facility] Comment on above: Result Comment: Miss bullard Attachment - total size limit for all attachments exceeded [email or web address] Can be viewed in source system AwesomeHighlighter Videoon Attenex Education Video Yes Patient Avoiding Infections in the Hospital Normal [facility] HEMATOLOGYOrdered By: SYSTEM SYSTEM on 04-29-2023 [...] 28.3 pg Normal 27.0 - 34.0 pg FT [facility] MCHC (RBC) [Mass/Vol] 34.3 g/dL Normal 31.4 - 36.0 gm/dL [facility] MCV (RBC) [Entitic vol] 82.4 fL Normal 80.0 - 100.0 fL [facility]Auto[facility] Platelet mean volume (Bld) [Entitic vol] 8.7 fL Normal 6.4 - 10.8 fL [facility] Platelets (Bld) [#/Vol] 147.0 E9/L Low 150.0 - 500.0 E9/L [facility] RBC (Bld) [#/Vol] 2.7 E12/L Low 4.3 - 5.9 E12/L [facility] WBC corrected for nucl RBC Auto (Bld) [#/Vol] 6.0 E9/L Normal 4.0 - 11.0 E9/L [facility] Hct & Hgbon 04-29-2023 Hematocrit (Bld) [Volume fraction] 21.1 % Low 37.7-49.0 [facility] Comment on above: Performed By: #### 1 [id number], [id number], [id number], [id number] #### [facility] [address] [place] [address] Hemoglobin (Bld) [Mass/Vol] 7.3 g/dL Low 13.5-17.5 [facility] Comment on above: Performed By: #### 1 [id number], [id number], [id number], [id number] #### [facility] [address] [place] [address] Hematocrit (Bld) [Volume fraction] 21.2 % Low 37.7-49.0 [facility] Comment on above: Performed By: #### 1 [id number] ####[facility] [address] [place] [address] Hemoglobin (Bld) [Mass/Vol] 7.4 g/dL Low 13.5-17.5 [facility] Comment on above: Performed By: #### 1 [id number] ####[facility] [address] [place] [address] Hematocrit (Bld) [Volume fraction] 22.3 % Low 37.7-49.0 [facility] Comment on above: Performed By: #### 2 [id number] #### [facility] [address] [place] [address] Hemoglobin (Bld) [Mass/Vol] 7.7 g/dL Low 13.5-17.5 [facility] Comment on above: Performed By: #### 2 [id number] #### [facility] [address] [place] [address] [id number] 04-29-2023 HbA1c (Bld) [Mass fraction] 8.2 % High <=5.9 [facility] Comment on above: Order Comment: Order placed by EKM rule. [id number]_[facility] Performed By: #### 7 [id number] #### [facility] [address] [place] [address] Interdisciplinary Note - Mauricio e Manageron 04-29-2023 Interdisciplinary Note - Back Panel Padder CRM to room to discuss DC Planning. Patient is awake, alert and oriented. Patient is from home with his spouse, she will transport at [place]. Patient verified PCP, home DME and insurance. Patient on 04/27 had a Right ESWL came back in 04/28 with a retroperitoneal Hematoma. Patient is assigned to [place], see notes. Patient has urology consult. Patient denied any DC need from CRM for HH, DME and PM. Patient was provided CRM contact, white board updated. Anticipated DC TBD. CRM following Normal [facility] Comment on above: Result Comment: Elec tronically Signed By: Sarah Choi\.br\Date and Time Signed: 04/29/23 14:02 EST Magnesiumon 04-29-2023 Magnesium [Mass/Vol] 1.5 mg/dL Normal 1.3-2.4 [facility] Comment on above: Performed By: #### 1 [id number], [id number], [id number], [id number] #### [facility] Laboratory [address] [place] [address] Monitor Recordon 04-29-2023 Monitor Record [id number]# 1.00TIFF Normal [facility] Monitor Record [id number]# 1.00TIFF Normal [facility] Monitor Record [id number]# 1.00TIFF Normal [facility] RAD - Preliminary Cat Scan R eporton 04-29-2023 RAD - Preliminary Cat Scan Report [id number]# 1.00TIFF Normal [facility] RAD - Preliminary Cat Scan Report [id number]# 1.00TIFF Normal [facility] Comment on above: Other Comment: stat rad read it wrong RCOon 04-29-2023 # of Units 1 Invalid Interpretation Code [facility] Comment on above: Performed By: #### 1 [id number] ####[facility] [address] [place] [address] Date Required [id number] Invalid Interpretation Code [facility] Comment on above: Performed By: #### 1 [id number] ####[facility] [address] [place] [address] Order to Transfuse Yes Normal [facility] Comment on above: Performed By: #### 1 [id number] ####[facility] [address] [place] [address] Product Type None Required Invalid Interpretation Code [facility] Comment on above: Performed By: #### 1 [id number] ####[facility] [address] [place] [address] # of Units 2 Invalid Interpretation Code [facility] Comment on above: Performed By: #### 1 [id number] #### [facility] Laboratory [address] [place] [address] Date Required [id number] Invalid Interpretation Code [facility] Comment on above: Performed By: #### 1 [id number] #### [facility] Laboratory [address] [place] [address] Order to Transfuse Yes Normal [facility] Comment on above: Performed By: #### 1 [id number] #### [facility] Laboratory [address] [place] [address] Product Type None Required Invalid Interpretation Code [facility] Comment on above: Performed By: #### 1 [id number] #### [facility] Laboratory [address] [place] [address] Troponin 3 Hr.on 04-29-2023 Troponin I.cardiac [Mass/Vol] 21.10 pg/mL Normal 15.90-38.40 [facility] Comment on above: Result Comment: The 95% CI (Confidence Interval) PPV (Positive Predictive Value) for myocardial infarction in females is 38 pg/mL, in males 51 pg/mL. The results should be used in conjunction with clinical conditions of myocardial infarction. (Access High Sensitivity Troponin I Instructions For Use, [employer], December 2017) Performed By: #### 1 [id number] ####[facility] [address] [place] [address] Troponin 6 Hr.on 04-29-2023 Troponin I.cardiac [Mass/Vol] 22.70 pg/mL Normal 15.90-38.40 [facility] Comment on above: Result Comment: The 95% CI (Confidence Interval) PPV (Positive Predictive Value) for myocardial infarction in females is 38 pg/mL, in males 51 pg/mL. The results should be used in conjunction with clinical conditions of myocardial infarction. (Access High Sensitivity Troponin I Instructions For Use, [employer], December 2017) Performed By: #### 1 [id number], [id number], [id number], [id number] #### [facility] Laboratory [address] [place] [address] Troponin 9 Hr.on 04-29-2023 Troponin I.cardiac [Mass/Vol] 29.60 pg/mL Normal 15.90-38.40 [facility] Comment on above: Result Comment: The 95% CI (Confidence Interval) PPV (Positive Predictive Value) for myocardial infarction in females is 38 pg/mL, in males 51 pg/mL. The results should be used in conjunction with clinical conditions of myocardial infarction. (Access High Sensitivity Troponin I Instructions For Use, [place], December 2017) Performed By: #### 1 [id number], [id number], [id number], [id number] #### [facility] Laboratory [address] [place] [address] XR Chest Single Viewon 04-29 XR Chest [...] NATALIE Technologist: MARYLIN Technical Comments Radiation Dose: Kar in mGy = na DAP = na Normal [facility] eGFRon 04-29-2023 GFR/1.73 sq M.predicted among non-blacks MDRD (S/P/Bld) [Vol rate/Area] 70 mL/min/1.73 m2 Normal >=59 [facility] Comment on above: Order Comment: Order added by Discern Expert. Result Comment: Environmental Services Attendant juliana kidney disease could be indicated at eGFR's of less than 60 mL/min/1.73m2. Kidney failure is indicated at less than 15 mL/min/1.73m2. Performed By: #### 1 [id number], [id number], [id number], [id number] #### [facility] [address] [place] [address] GFR/1.73 sq M.predicted among non-blacks MDRD (S/P/Bld) [Vol rate/Area] 70 mL/min/1.73 m2 Normal >=59 [facility] Comment on above: Order Comment: Order added by Discern Expert. Result Comment: Environmental Services Attendant juliana kidney disease could be indicated at eGFR's of less than 60 mL/min/1.73m2. Kidney failure is indicated at less than 15 mL/min/1.73m2. Performed By: #### 1 [id number], [id number], 0118502, [id number] #### [facility] [address] [place] [address] Auto Diffon 04-28-2023 Basophils/100 WBC (Bld) 0.4 % Normal 0.0-2.0 [facility] Comment on above: Order Comment: Order Added by Discern Expert. Performed By: #### 2 [id number] #### [facility] Laboratory [address] [place] [address] Basophils/Leukocytes Auto (Bld) [Pure # fraction] 0.0 E9/L Normal 0.0-0.2 [facility] Comment on above: Order Comment: Order Added by Discern Expert. Performed By: #### 2 [id number] #### [facility] Laboratory [address] [place] [address] Eosinophils/100 WBC (Bld) 0.6 % Normal 0.0-8.0 [facility] Comment on above: Order Comment: Order Added by Discern Expert. Performed By: #### 2 [id number] #### [facility] Laboratory [address] [place] [address] Eosinophils/Leukocytes Auto (Bld) [Pure # fraction] 0.0 E9/L Normal 0.0-0.5 [facility] Comment on above: Order Comment: Order Added by Discern Expert. Performed By: #### 2 [id number] #### [facility] Laboratory [address] [place] [address] Lymphocytes/100 WBC (Bld) 22.8 % Normal 14.0-50.0 [facility] Comment on above: Order Comment: Order Added by Discern Expert. Performed By: #### 2 [id number] #### [facility] Laboratory [address] [place] [address] Lymphocytes/Leukocytes Auto (Bld) [Pure # fraction] 1.6 E9/L Normal 1.0-4.0 [facility] Comment on above: Order Comment: Order Added by Discern Expert. Performed By: #### 2 [id number] #### [facility] Laboratory [address] [place] [address] Monocytes/100 WBC (Bld) 8.2 % Normal 4.0-14.0 [facility] Comment on above: Order Comment: Order Added by Discern Expert. Performed By: #### 2 [id number] #### [facility] Laboratory [address] [place] [address] Monocytes/Leukocytes Auto (Bld) [Pure # fraction] 0.6 E9/L Normal 0.2-1.0 [facility] Comment on above: Order Comment: Order Added by Discern Expert. Performed By: #### 2 [id number] #### [facility] Laboratory [address] [place] [address] Neutrophils/100 WBC (Bld) 68.0 % Normal 36.0-75.0 [facility] Comment on above: Order Comment: Order Added by Discern Expert. Performed By: #### 2 [id number] #### [facility] Laboratory [address] [place] [address] Neutrophils/Leukocytes Auto (Bld) [Pure # fraction] 4.7 E9/L Normal 2.0-7.5 [facility] Comment on above: Order Comment: Order Added by Discern Expert. Performed By: #### 2 [id number] #### [facility] Laboratory [address] [place] [address] BMPon 04-28-2023 Creatinine [Mass/Vol] 1.5 mg/dL High 0.5-1.3 [facility] Comment on above: Performed By: #### 7 [id number] #### [facility] Laboratory [address] [place] [address] Urea nitrogen [Mass/Vol] 24 mg/dL High 5-21 [facility] Comment on above: Performed By: #### 7 [id number] #### [facility] Laboratory [address] [place] [address] Urea nitrogen/Creatinine [Mass ratio] 16 No Units Normal 10-20 [facility] Comment on above: Performed By: #### 7 [id number] #### [facility] Laboratory [address] [place] [address] Anion gap [Moles/Vol] 13 mmol/L Normal 6-16 [facility] Comment on above: Performed By: #### 7 [id number] #### [facility] Laboratory [address] [place] [address] Calcium [Mass/Vol] 9.0 mg/dL Normal 8.9-11.1 [facility] Comment on above: Performed By: #### 7 [id number] #### [facility] Laboratory [address] [place] [address] Chloride [Moles/Vol] 99 mmol/L Low 101-111 [facility] Comment on above: Performed By: #### 7 [id number] #### [facility] Laboratory [address] [place] [address] CO2 [Moles/Vol] 26 mmol/L Normal 21-31 [facility] Comment on above: Performed By: #### 7 [id number] #### [facility] Laboratory [address] [place] [address] Glucose [Mass/Vol] 347 mg/dL High 55-199 [facility] Comment on above: Result Comment: If t his glucose result represents a fasting glucose, interpretation should refer to the following reference range: 55-99 mg/dL Performed By: #### 7 [id number] #### [facility] Laboratory [address] [place] [address] Potassium [Moles/Vol] 4.0 mmol/L Normal 3.5-5.3 [facility] Comment on above: Performed By: #### 7 [id number] #### [facility] [address] [place] [address] Sodium [Moles/Vol] 134 mmol/L Low 135-145 [facility] Comment on above: Performed By: #### 7 [id number] #### [facility] Laboratory [address] [place] [address] CBC w/ Auto Diffon Erythrocyte distribution width (RBC) [Ratio] 14.0 % Normal 10.9-14.2 [facility] Comment on above: Performed By: #### 2 [id number] #### [facility] Laboratory [address] [place] [address] Hematocrit (Bld) [Volume fraction] 23.7 % Low 37.7-49.0 [facility] Comment on above: Performed By: #### 2 [id number] #### [facility] Laboratory [address] [place] [address] Hemoglobin (Bld) [Mass/Vol] 8.2 g/dL Low 13.5-17.5 [facility] Comment on above: Performed By: #### 2 [id number] #### [facility] [address] [place] [address] MCH (RBC) [Entitic mass] 28.3 pg Normal 27.0-34.0 [facility] Comment on above: Performed By: #### 2 [id number] #### [facility] Laboratory [address] [place] [address] MCHC (RBC) [Mass/Vol] 34.6 g/dL Normal 31.4-36.0 [facility] Comment on above: Performed By: #### 2 [id number] #### [facility] Laboratory [address] [place] [address] MCV (RBC) [Entitic vol] 81.7 fL Normal 80.0-100.0 [facility] Comment on above: Performed By: #### 2 [id number] #### [facility] Laboratory [address] [place] [address] Platelet mean volume (Bld) [Entitic vol] 8.0 fL Normal 6.4-10.8 [facility] Comment on above: Performed By: #### 2 [id number] #### [facility] Laboratory [address] [place] [address] Platelets (Bld) [#/Vol] 163.0 E9/L Normal 150.0-500.0 [facility] Comment on above: Performed By: #### 2 [id number] #### [facility] Laboratory [address] [place] [address] RBC (Bld) [#/Vol] 2.9 E12/L Low 4.3-5.9 [facility] Comment on above: Performed By: #### 2 [id number] #### [facility] Laboratory [address] [place] [address] WBC corrected for nucl RBC Auto (Bld) [#/Vol] 6.9 E9/L Normal 4.0-11.0 [facility] Comment on above: Performed By: #### 2 [id number] #### [facility] [address] [place] [address] COAGULATIONOrdered By: Odilon Langley on 04-28-2023 aPTT Coag (PPP) [Time] 26.0 s Normal 25.1 - 36.5 second(s) [facility] Auto Coag Comment on above: Interpretive Data: [...] the same coagulation reagent and instrumentation as [facility]. Currently there are no coagulation studies available worldwide for children to 14 days, and no normal ranges. Heparin therapeutic range (represented by Anti-Factor Xa activity of 0.2 - 0.4 U/mL) corresponds to PTT of 56.6 - 109.0 sec. INR Coag (PPP) [Relative time] 1.0 {INR} Invalid Interpretation Code [facility] Auto Coag Comment on above: Interpretive Data: I NR results are specifically intended to assess patients stabilized on long-term Anticoagulation therapy suggested INR s Less Intensive Anticoagulation 2.0 3.0 Conventional Range 3.0 4.5 PT Coag (PPP) [Time] 11.5 s Normal 9.4 - 1 2.5 second(s) [facility] Auto Coag Comment on above: Interpretive Data: [...] the same coagulation reagent and instrumentation as [facility]. Currently there are no coagulation studies available worldwide for children to 14 days, and no normal ranges. Consent for Treatmenton Consent for Treatment [id number]#1 .00TIFF Normal [facility] HEMATOLOGYOrdered By: SYSTEM SYSTEM on 04-28-2023 [...] Coag (PPP) [Time] 26.0 second(s) Normal 25.1-36.5 [facility] Comment on above: Result Comment: Para [...] the same coagulation reagent and instrumentation as [facility]. Currently there are no coagulation studies available worldwide for children to 14 days, and no normal ranges. Heparin therapeutic range (represented by Anti-Factor Xa activity of 0.2 - 0.4 U/mL) corresponds to PTT of 56.6 - 109.0 sec. Performed By: #### 2 [id number] #### [facility] Laboratory [address] [place] [address] INR Coag (PPP) [Relative time] 1.0 {INR} Invalid Interpretation Code [facility] Comment on above: Result Comment: INR results are specifically intended to assess patients stabilized on long-term Anticoagulation therapy suggested INR?s ?Less Intensive Anticoagulation? 2.0 ? 3.0 Conventional Range 3.0 ? 4.5 Performed By: #### 2 [id number] #### [facility] Laboratory [address] [place] [address] PT Coag (PPP) [Time] 11.5 second(s) Normal 9.4-12.5 [facility] Comment on above: Result Comment: 15 [...] were obtained from a study by [employer] [place], et al. prepared from 1437 samples obtained at 7 different centers using the same coagulation reagent and instrumentation as [facility]. Currently there are no coagulation studies available worldwide for children to 14 days, and no normal ranges. Performed By: #### 2 [id number] #### [facility] Laboratory [address] [place] [address] Pre-Arrival Noteon 3 Pre-Arrival Note Pre-Arrival Summary Name: , NCKRISTIN Current Date: 04/28/2023 20:38:23 EST Gender: Male Date of : Age: 57 Pre-Arrival Type: EMS ETA: 04/28/2023 20:56:00 EST Primary Care Physician: Presenting Problem: Chest pain, Shoulder and back pain Pre-Arrival User: Fabian Toussaint RN Referring Source: Location: ID Completion Date/Time: 04/28/2023 20:27:00 [facility] Department Pre-Hospital Report Form Vital Signs: BP- 121/64, CR 103, RR-16, SP02-95 Room air Pre-Hospital Report: Treatment in Route: Nitro 1 tab SL, 1L IV Response to Treatment: Misc. Issues: Normal [facility] Troponin 0 Hr.on 04-28-2023 Troponin I.cardiac [Mass/Vol] 18.20 pg/mL Normal 15.90-38.40 [facility] Comment on above: Result Comment: The 95% CI (Confidence Interval) PPV (Positive Predictive Value) for myocardial infarction in females is 38 pg/mL, in males 51 pg/mL. The results should be used in conjunction with clinical conditions of myocardial infarction. (Access High Sensitivity Troponin I Instructions For Use, [place], December 2017) Performed By: #### 7 [id number] #### [facility] Laboratory [address] [place] [address] eGFRon 04-28-2023 GFR/1.73 sq M.predicted among non-blacks MDRD (S/P/Bld) [Vol rate/Area] 53 mL/min/1.73 m2 Low >=59 [facility] Comment on above: Order Comment: Order placed by EKM rule. [email or web address]_[facility] Result Comment: Environmental Services Attendant juliana kidney disease could be indicated at eGFR's of less than 60 mL/min/1.73m2. Kidney failure is indicated at less than 15 mL/min/1.73m2. Performed By: #### 7 [id number] #### [facility] Laboratory [address] [place] [address] Lab Reportson 04-27-2023 Lab Reports [id number]#1 .00TIFF Normal [facility] Operative Reporton Operative Report [id number]#1 .00TIFF Normal [facility] ECG 12-Leadon 04-14-2023 ECG 12-Lead [id number]#1. 00TIFF Normal [facility] Lab Reportson 04-14-2023 Lab Reports [id number]#1 .00TIFF Normal [facility] RAD - MISCon 04-14-2023 RAD - MISC [id number]#1 .00TIFF Normal [facility] Insurance Correspondenceon 06-07-2022 Insurance Correspondence [id number]# 1.00TIFF Normal [facility] Consent for Procedure/Surger yon 03-28-2023 Consent for Procedure/Surgery [id number]# 1.00TIFF Normal [facility] Physician Referralon 023 Physician Referral [id number]#1. 00TIFF Normal [facility] Ambulatory Visit Summaryon 1 Ambulatory Visit Summary JANICE SMYTH :1965 Visit Date:03/27/2023 Ambulatory Visit Instructions Your Diagnosis Kidney stones BPH (benign prostatic hyperplasia) Aspirin long-term use Tests Performed Urnls Dip Stick Auto w/o Microscopy POC 19729 Your Care Team Attending Physician - Sean [...] Following Appointments Follow Up with PRISCA ACOSTA, ALTA Clemons When: Comments: sched laser litho Where: [facility] [address] , [place] [phone] Medications What How Much When Why Instructions [...] Urnls Dip Stick Auto w/o Microscopy POC 40337 (03/27/2023) Bilirubin Urine Dipstick - Negative Blood Urine Dipstick - Negative Glucose Urine Dipstick - Negative Ketones Urine Dipstick - Negative Leukocytes Urine Dipstick - Negative Nitrite Urine Dipstick - Negative Protein Urine Dipstick - 1+ (30 mg/dl) Specific [place] Urine Dipstick - 1.015 Urine Appearance Urine [...] treatm (more content not included)... Normal [facility] Patient Educationon 03-27-20 Patient Education Urology Kidney [...] these instructions at home: Medicines ? Take uciu-ptg-fbzbamv and prescription medicines only as told by [...] provider. Document Revised: 01/17/2022 Document Reviewed: 01/17/2022 [employer] Patient Education ? 2022 [employer] [facility] Urology Office/Clinic Noteon 03-27-2023 Urology Office/Clinic Note HPI Staff 57 yo male new pt re-referred by Dr. Antonio Kitchen for personal hx of urinary calculi. Last seen in office 08/27/[address] Culver. 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 S/p Cysto 06/08/17 [...] 03/26/22 - 0.58 Has PSA order at [facility] from 01/03/[address] Kitchen. Per pt [...] lower urin (more content not included)... Normal [facility] Comment on above: Result Comment: Elec tronically Signed By: Sean COPE MD\.br\Date and Time Signed: 03/27/23 09:51 EDT\.br\Electronically Co-Signed By: Carol Padilla\.br\Date and Time Co-Signed: 03/27/23 09:47 EDT Auto Diffon 03-08-2023 Basophils/100 WBC (Bld) 0.5 % Normal 0.0-2.0 [facility] Comment on above: Order Comment: Order Added by Discern Expert. Performed By: #### 1 [id number], [id number], [id number], [id number] #### [facility] Laboratory [address] [place] [address] Basophils/Leukocytes Auto (Bld) [Pure # fraction] 0.0 E9/L Normal 0.0-0.2 [facility] Comment on above: Order Comment: Order Added by Discern Expert. Performed By: #### 1 [id number], [id number], [id number], [id number] #### [facility] Laboratory [address] [place] [address] Eosinophils/100 WBC (Bld) 0.8 % Normal 0.0-8.0 [facility] Comment on above: Order Comment: Order Added by Discern Expert. Performed By: #### 1 [id number], [id number], [id number], [id number] #### [facility] Laboratory [address] [place] [address] Eosinophils/Leukocytes Auto (Bld) [Pure # fraction] 0.0 E9/L Normal 0.0-0.5 [facility] Comment on above: Order Comment: Order Added by Discern Expert. Performed By: #### 1 [id number], [id number], [id number], [id number] #### [facility] Laboratory [address] [place] [address] Lymphocytes/100 WBC (Bld) 32.6 % Normal 14.0-50.0 [facility] Comment on above: Order Comment: Order Added by Discern Expert. Performed By: #### 1 [id number], [id number], 0390686, [id number] #### [facility] [address] [place] [address] 23503 Lymphocytes/Leukocytes Auto (Bld) [Pure # fraction] 1.8 E9/L Normal 1.0-4.0 [facility] Comment on above: Order Comment: Order Added by Discern Expert. Performed By: #### 1 [id number], [id number], 2355477, [id number] #### [facility] [address] [place] [address] 53344 Monocytes/100 WBC (Bld) 7.2 % Normal 4.0-14.0 [facility] Comment on above: Order Comment: Order Added by Discern Expert. Performed By: #### 1 [id number], 61321675, 2607443, [id number] #### [facility] [address] [place] [address] 11686 Monocytes/Leukocytes Auto (Bld) [Pure # fraction] 0.4 E9/L Normal 0.2-1.0 [facility] Comment on above: Order Comment: Order Added by Discern Expert. Performed By: #### 1 4368514, 26403803, 3438549, [id number] #### [facility] [address] [place] [address] 59730 Neutrophils/100 WBC (Bld) 58.9 % Normal 36.0-75.0 [facility] Comment on above: Order Comment: Order Added by Discern Expert. Performed By: #### 1 [id number], [id number], 6574091, [id number] #### [facility] [address] [place] [address] 75475 Neutrophils/Leukocytes Auto (Bld) [Pure # fraction] 3.2 E9/L Normal 2.0-7.5 [facility] Comment on above: Order Comment: Order Added by Discern Expert. Performed By: #### 1 4232911, 31755067, 9274431, [id number] #### [facility] [address] [place] [address] 25970 CBC w/ Auto Diffon Erythrocyte distribution width (RBC) [Ratio] 13.3 % Normal 10.9-14.2 [facility] Comment on above: Performed By: #### 1 4577732, 34332052, 7090202, 07098818 #### [facility] [address] [place] [address] 93768 Hematocrit (Bld) [Volume fraction] 38.0 % Normal 37.7-49.0 [facility] Comment on above: Performed By: #### 1 1691061, 06962807, 9687997, 71891878 #### [facility] [address] [place] [address] 88850 Hemoglobin (Bld) [Mass/Vol] 12.9 g/dL Low 13.5-17.5 [facility] Comment on above: Performed By: #### 1 [id number], 31101142, 1650536, [id number] #### [facility] [address] [place] [address] MCH (RBC) [Entitic mass] 28.0 pg Normal 27.0-34.0 [facility] Comment on above: Performed By: #### 1 0605758, 38971420, 6762843, 68756020 #### [facility] [address] [place] [address] 76716 MCHC (RBC) [Mass/Vol] 34.0 g/dL Normal 31.4-36.0 [facility] Comment on above: Performed By: #### 1 4068697, 46744486, 9911361, 80962365 #### [facility] [address] [place] [address] 12819 MCV (RBC) [Entitic vol] 82.6 fL Normal 80.0-100.0 [facility] Comment on above: Performed By: #### 1 5527273, 46484841, 7419721, 14928759 #### [facility] [address] [place] [address] 62268 Platelet mean volume (Bld) [Entitic vol] 7.7 fL Normal 6.4-10.8 [facility] Comment on above: Performed By: #### 1 7343773, 31152721, 6018514, 72235966 #### [facility] [address] [place] [address] Platelets (Bld) [#/Vol] 280.0 E9/L Normal 150.0-500.0 [facility] Comment on above: Performed By: #### 1 7613199, 95163647, 7458100, 82698474 #### [facility] [address] [place] [address] 36717 RBC (Bld) [#/Vol] 4.6 E12/L Normal 4.3-5.9 [facility] Comment on above: Performed By: #### 1 5672794, 49714236, 9769950, 15479785 #### [facility] [address] [place] [address] WBC corrected for nucl RBC Auto (Bld) [#/Vol] 5.4 E9/L Normal 4.0-11.0 [facility] Comment on above: Performed By: #### 1 7018594, 39006868, 4312234, 50811699 #### [facility] [address] [place] [address] CHEMISTRYOrdered By: SYSTEM SYSTEM on 03-08-2023 CRP [Mass/Vol] 0.5 mg/dL Normal <=1.9mg/dL [facility] Remis ol CRPon 03-08-2023 CRP [Mass/Vol] 0.5 mg/dL Normal <=1.9 [facility] Comment on above: Performed By: #### 1 3560310, 44582982, 6958556, 64813008 #### [facility] [address] [place] [address] Consent for Treatmenton 02-26 Consent for Treatment [id number]#1 .00TIFF Normal [facility] HEMATOLOGYOrdered By: SYSTEM SYSTEM on 03-08-2023 [...] 0.4 E9/L Normal 0.2 - 1.0 E9/L [facility] HemeAutoSS Neutrophils/100 WBC (Bld) 58.9 % Normal [...] 5.4 E9/L Normal 4.0 - 11.0 E9/L [facility] HemeAutoSS HEMATOLOGYOrdered By: Shikha Conteh on 03-08-2023 Sed Rate Automated 12 mm/h Normal 0 - 19 mm/hr [facility] HemeAutoSS Physician Orderon 03-08-2023 Physician Order [id number]#1 .00TIFF Normal [facility] Sed Rate Automatedon 023 Sed Rate Automated 12 mm/hr Normal 0-19 [facility] Comment on above: Performed By: #### 1 [id number], 94934727, 0858474, 03346687 #### [facility] [address] [place] [address] IntraOperative Documentson 0 02-22-2023 IntraOperative Documents [id number]#1 .00CD:127 Normal [facility] Main OR Intraoperative Recor don 02-09-2023 Main OR Intraoperative Record IntraOp Document Type FT Summary Primary Physician: Yann Atwood DO Finalized Date/Time: 02/09/23 13:23:06 Pt. Name: JANICE SMYTH/Sex: 1965 Male Med Rec #: [id number] Physician: Yann Atwood DO Financial #: [id number] Pt. Type: A Room/Bed: [place] [address] Admit/Disch: 02/07/23 06:04:01 - 02/07/23 15:10:00 Institution: [...] nerve block done by Dr. Desouza at [phone] with Chris, ANNELIESE assisting, no issues, taken back to [facility] at 0746, hooked to monitors, verbal reports given to [facility] RN. ANNELIESE Perez 02/09/23 Chart opened to review and send charges [facility] CSFA Case Attendance FT Entry 1 Entry 2 Entry 3 Case Attendee Carlton RUIZLORELEI, Yann Aden DO Per CUSTOMER SERVICE ADVISOR, Elroy Morales Role Performed CARDIOLOGY NURSE Surgeon - Primary CUSTOMER SERVICE ADVISOR/SA Time In 02/07/23 08:51:00 02/07/23 08:51:00 02/07/23 [...] Laura C Troike, Kendall R Role Performed Medical Health Researcher - Primary Scrub - Primary Scrub - [...] Specialty O (more content not included)... Normal [facility] Consent for Anesthesiaon Consent for Anesthesia [id number]# 1.00CD:127 Normal [facility] Discharge Instructionson Discharge Instructions [id number]# 1.00CD:127 Normal [facility] IntraOperative Documentson 0 02-08-2023 IntraOperative Documents [id number]# 1.00CD:127 Normal [facility] Preoperative Documentson Preoperative Documents [id number] [id number]# 1.00CD:127 Normal [facility] ABO/Rhon 02-07-2023 ABO/Rh Positive Invalid Interpretation Code [facility] Comment on above: Performed By: #### 1 7868747, 94215686, 6118152, 82609823 ####[facility] [address] [place] [address] ABO/Rh History Checkon 02-07 ABO/Rh History Check Verified Hx Blood Type Normal [facility] Comment on above: Performed By: #### 1 4237598, 52132101, 8848928, 71982410 ####[facility] [address] [place] [address] ABSCon 02-07-2023 ABSC Gel Interp Negative Normal [facility] Comment on above: Performed By: #### 1 3333527, 83081405, 7455224, 72221978 ####[facility] [address] [place] [address] BLOOD BANKOrdered By: John Amin on 02-07-2023 ABO/Rh Interp Positive Invalid Interpretation Code [facility] BB Subsection ABSC Gel Interp Negative (02/07/23 6:40 AM) Normal [facility] BB Subsection Blood Bank ID#on 02-07-2023 BBID# [id number] Invalid Interpretation Code [facility] Comment on above: Performed By: #### 1 5849804, 56842184, 5750941, 83223482 ####[facility] [address] [place] [address] CHEMISTRYOrdered By: Lab ROP User on 02-07-2023 Glucose [Mass/Vol] 307 mg/dL High 55 - 99 mg/dL [facility] POC Subsection Comment on above: Result Comment: Lucina edison Meter POC Device SN [id number] Invalid Interpretation Code [facility] POC Subsection POC User ID [id number] Invalid Interpretation Code [facility] POC Subsection POC Username CELESTE BARRETT Invalid Interpretation Code [facility] POC Subsection Glucose [Mass/Vol] 195 mg/dL High 55 - 99 mg/dL [facility] POC Subsection POC Device SN [id number] Invalid Interpretation Code [facility] POC Subsection POC User ID [id number] Invalid Interpretation Code [facility] POC Subsection POC Username CELESTE BARRETT Invalid Interpretation Code [facility] POC Subsection Capillary Glucose POCon 01-27 Glucose [Mass/Vol] 307 mg/dL High 55-99 [facility] Comment on above: Result Comment: Lucina edison Meter Performed By: #### 2 [id number] #### [facility] [address] [place] [address] Glucose [Mass/Vol] 195 mg/dL High 55-99 [facility] Comment on above: Performed By: #### 2 [id number] ####[facility] [address] [place] [address] Consent for Treatmenton 01-27 Consent for Treatment [id number]#1 .00CD:127 [facility] Discharge Instructionson Discharge Instructions JANICE SMYTH :1965 [...] ACOSTA, Sean Stovall Where: [facility] Comment on above: Result Comment: Elec tronically Signed By: Obi COY, Sienna Patel.ravin\Date and Time Signed: 02/07/23 12:39 EDT Discharge [...] been scheduled Call for any problems. Where: [address] [place] [address] [email or web address] (1) Medications What How Much When Why [...] possible. ? If the spirometer includes a onsite health coach indicator, use this to guide you in breathing. Slow down your breathing if the indicator goes (more content not included)... Normal [facility] Comment on above: Result Comment: Elec tronically Signed By: Ralph COY, Christa Caceres\.br\Date and Time Signed: 02/07/23 11:50 EDT H&P Updateon 02-07-2023 H&P Update [id number]#1 .00CD:127 Normal [facility] Main OR PACU I Recordon 01-27 Main OR PACU I Record PACU Phase I Docum ent Type FT Summary Primary Physician: Yann Atwood DO Finalized Date/Time: 02/07/23 12:12:17 Pt. Name: JANICE SMYTH/Sex: 1965 Male Med Rec #: [id number] Physician: Yann Atwood DO Financial #: [id number] Pt. Type: A Room/Bed: [place] [address] Admit/Disch: 02/07/23 06:04:01 - Institution: Case Times [...] By: Lakisha Wren RN 02/07/23 12:12 Normal [facility] Main OR Preoperative Recordo n 02-07-2023 Main OR Preoperative Record PreOp Document Type FT Summary Primary Physician: Yann Atwood DO Finalized Date/Time: 02/07/23 09:27:11 Pt. Name: JANICE SMYTH/Sex: 1965 Male Med Rec #: [id number] Physician: Yann Atwood DO Financial #: [id number] Pt. Type: A Room/Bed: [facility] Admit/Disch: 02/07/23 06:04:01 - Institution: [...] Signed By: Trey Ellison 02/07/23 09:27 Normal [facility] Monitor Recordon 02-07-2023 Monitor Record [id number]# 1.00CD:127 Normal [facility] Monitor Record [id number]# 1.00CD:127 Normal [facility] Operative Reporton Operative Report SURGERY DATE: 02/07/2023 SECURITY SUPPORT ANALYST: Elroy Albarado CFA PREOPERATIVE DIAGNOSIS: Right knee osteoarthritis POSTOPERATIVE DIAGNOSIS: Right knee osteoarthritis OPERATION: Right knee robotic-assisted total knee arthroplasty using the Moises platform ANESTHESIA: Adductor canal block/spinal as well as general ANESTHESIOLOGIST: Queen Carmen Vincent CRNA ESTIMATED BLOOD LOSS: None INTRAVENOUS FLUIDS/URINARY OUTPUT: Please see operative record SPECIMEN: Bone and soft tissue COMPLICATIONS: None DRAINS: None IMPLANT: [place] Triathlon Total Knee System with a size [...] lateral. Total knee arthroplasty is done with christianity of limb stability, alignment and length with [...] time-out procedure. This is done on the Anke platform as well. The limb is exsanguinated [...] tibial checkpoints (more content not included)... Normal [facility] Comment on above: Result Comment: Elec [...] Using maximal sterile barrier technique per current [facility] guidelines including hand hygeine, Guidance (Ultrasound used to identify anatomical landmarks, Using sterile gel and probe covers, Permanent image retained), The site was prepped with ChloraPrep. Procedure: Anesthetic Agent 0.5% Ropivacaine with 4mg Decadron, Catheter size 21 guage, Catheter length 100 mm, Number of attempts 1. Complications: None, The patient tolerated the procedure as expected. Normal [facility] Comment on above: Result Comment: Elec [...] possible. ? If the spirometer includes a onsite health coach indicator, use this to guide [...] provider. Document Revised: 08/03/2020 Document Reviewed: 08/03/2020 [employer] Patient Education ? 2022 [employer] [place], [place] [facility] DISCHARGE INSTRUCTIONS TOTAL KNEE ARTHROPLASTY INCISION CARE: Continue the daily dressing care to the knee as instructed in the hospital for 7 days postoperatively. The dressing will then be changed and worn an additional 7 days. You may then discontinue the dressing changes. Remove the dressing on the lower leg po (more content not included)... Normal [facility] Progress Note-Physicianon Progress Note-Physician Patient: JANICE [...] Daily, # 90 tab(s), Refills(s) 3, Pharmacy: [facility], 186, cm, 11/24/21 14:21:00 EDT, Height/Length Dosing, 98, kg, 11/24/21 14:21:00 EDT, Weight Dosing atorvastatin 80 mg Tab: 80 mg = 1 tab(s), Oral, Daily, # 90 tab(s), Refills(s) 3, Pharmacy: [facility], 186, cm, 10/20/20 11:38:00 EDT, Height/Length Dosing, 96, kg, 10/20/20 11:38:00 EDT, Weight Dosing nitroglycerin 0.4 mg sublingual Tab: 0.4 mg = 1 tab(s), SubLingual, q5min, PRN Chest pain, not to exceed 3 doses/15 min--if pain persists, seek medical attention, # 30 tab(s), Refills(s) 0, Pharmacy: [facility]/pharmacy #[id number], 185.4, cm, 02/21/20 20:48:00 EDT, [...] list: All Problems Arthritis / SNOMED CT 9099524 / Conf (more content not included)... Normal [facility] Comment on above: Result Comment: Elec tronically Signed By: Deion Desouza DO.br\Date and Time Signed: 02/07/23 12:17 EDT Progress Note-Physician Patient: JANICE SMYTH Age: 57 years Sex: Male : 1965 Associated Diagnoses: None Author: Yann Atwood DO Postoperative Information Procedure: R RA TKA Preoperative Diagnosis: R knee OA. Postoperative Diagnosis: same. Performed by: mahsa. Drier Attendant: Jayme Albarado. Specimens Removed: bone, soft tissue. Prosthesis: Brayan. . Estimated Blood Loss: 0 ml. Complications: None. Anesthesia type: General, Spinal, add canal block. Normal [facility] Comment on above: Result Comment: Elec tronically Signed By: Yann Atwood DO\.br\Date and Time Signed: 02/07/23 10:33 EDT [...] Daily, # 90 tab(s), Refills(s) 3, Pharmacy: [facility], 186, cm, 10/20/20 11:38:00 EDT, Height/Length Dosing, 96, kg, 10/20/20 11:38:00 EDT, Weight Dosing nitroglycerin 0.4 mg sublingual Tab: 0.4 mg = 1 tab(s), SubLingual, q5min, PRN Chest pain, not to exceed 3 doses/15 min--if pain persists, seek medical attention, # 30 tab(s), Refills(s) 0, Pharmacy: [facility]/pharmacy #[id number], 185.4, cm, 02/21/20 20:48:00 EDT, [...] list: All Problems Arthritis / SNOMED CT 1595562 / Confirmed Coronary artery disease / SNOMED CT 33246996 / Confirmed Degenerative joint disease / SNOMED CT 0829387658 / Confirmed Depression / SNOMED CT 36695818 / Confirmed Glaucoma / SNOMED CT 01417784 / Confirmed High blood pressure / SNOMED CT 3409454582 / Confirmed Intermittent chest pain / SNOMED CT 83799365 / Confirmed Type 2 diabetes mellitus / SNOMED CT 780335436 / Confirmed Resolved: Diabetes type / SNOMED CT 5830037728 Resolved: STEMI - ST elevation myocardial infarction / SNOMED CT 7056717083, Active Problems (8) Arthritis Coronary artery disease Degenerative joint disease Depression Glaucoma High blood pressure Intermittent chest pain Type 2 diabetes mellitus Histories Past Medical History: Resolved STEMI - ST elevation myocardial infarction (9036412639): Onset on 12/26/2019 at 54 years. Resolved. Diabetes type (8357731635): Resolved. Family History: Diabetes mellitus type 1 Father Procedure history: Cardiac catheterisation (360772451) on 02/24/2020 at 54 Years. PCI - Percutaneous coronary intervention (9969538401) on 12/26/2019 at 54 Years. 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 Comments: 12/26/2019 9:24 EDT - Gianfranco COY, Lesvia rotater cuff Fracture of (more content not included)... Normal [facility] Comment on above: Result Comment: Elec [...] mGy = na DAP = na Normal [facility] Heart and Vascular Office/Cl inic Noteon [...] intact- no rash or concerning lesions Procedure [facility] - Dr Brink 02/24/20 CONCLUSIONS: 1. Widely [...] artery disease (I25.10: Atherosclerotic heart disease of [place] coronary artery without angina pectoris) CAD with prior PCI. He continues aspirin 81 mg daily, high intensity atorvastatin 80 mg daily, losartan 100 mg daily. He did not tolerate beta-castro due to fatigue and baseline bradycardia. Follow-up With When Contact Information Jose De Jesus ACOSTA, Matthew Gar [address] [place] [address]- Additional Instructions: 1 year Problem List/Past Medical [...] Oral, Da (more content not included)... Normal [facility] Comment on above: Result Comment: Elec tronically Signed By: Estephania VILLANUEVA CNP\freda\Date and Time Signed: 02/05/23 15:28 EDT Consent for Procedure/Surger yon 02-03-2023 Consent for Procedure/Surgery [id number]# 1.00CD:127 Normal [facility] CT Lower Extremity w/o Contr ast [...] M.D. Transcribed by: NATALIE Technologist: PRINCESS Normal [facility] Insurance Correspondenceon 0 01-17-2023 Insurance Correspondence [id number]#1 .00CD:127 Normal [facility] ABO/Rh Retypeon 01-16-2023 ABO/Rh Retype Interp Positive Invalid Interpretation Code [facility] Comment on above: Performed By: #### 1 [id number] #### [facility] [address] [place] [address] BLOOD BANKOrdered By: Heidi Srinivasan on 01-16-2023 ABO/Rh Retype Interp Positive Invalid Interpretation Code [facility] BB Subsection BUNon 01-16-2023 Urea nitrogen [Mass/Vol] 13 mg/dL Normal 10-16 [facility] Comment on above: Performed By: #### 7 [id number] #### [facility] [address] [place] [address] CBC w/Indiceson 01-16-2023 Erythrocyte distribution width (RBC) [Ratio] 12.9 % Normal 10.9-14.2 [facility] Comment on above: Performed By: #### 7 [id number] #### [facility] [address] [place] [address] Hematocrit (Bld) [Volume fraction] 40.7 % Normal 37.7-49.0 [facility] Comment on above: Performed By: #### 7 [id number] #### [facility] [address] [place] [address] Hemoglobin (Bld) [Mass/Vol] 14.2 g/dL Normal 13.5-17.5 [facility] Comment on above: Performed By: #### 7 [id number] #### [facility] [address] [place] [address] MCH (RBC) [Entitic mass] 29.5 pg Normal 27.0-34.0 [facility] Comment on above: Performed By: #### 7 [id number] #### [facility] [address] [place] [address] MCHC (RBC) [Mass/Vol] 34.9 g/dL Normal 31.4-36.0 [facility] Comment on above: Performed By: #### 7 [id number] #### [facility] [address] [place] [address] MCV (RBC) [Entitic vol] 84.5 fL Normal 80.0-100.0 [facility] Comment on above: Performed By: #### 7 [id number] #### [facility] [address] [place] [address] Platelet mean volume (Bld) [Entitic vol] 8.0 fL Normal 6.4-10.8 [facility] Comment on above: Performed By: #### 7 [id number] #### [facility] [address] [place] [address] Platelets (Bld) [#/Vol] 226.0 E9/L Normal 150.0-500.0 [facility] Comment on above: Performed By: #### 7 [id number] #### [facility] [address] [place] [address] RBC (Bld) [#/Vol] 4.8 E12/L Normal 4.3-5.9 [facility] Comment on above: Performed By: #### 7 [id number] #### [facility] [address] [place] [address] WBC corrected for nucl RBC Auto (Bld) [#/Vol] 4.7 E9/L Normal 4.0-11.0 [facility] Comment on above: Performed By: #### 7 [id number] #### [facility] [address] [place] [address] CHEMISTRYOrdered By: SYSTEM SYSTEM on 01-16-2023 Anion gap [Moles/Vol] 9 mmol/L Normal 6 - 16 mEq/L [facility] Remisol Chloride [Moles/Vol] 104 mmol/L Normal 101 - 1 11 mmol/L [facility] Remisol CO2 [Moles/Vol] 28 mmol/L Normal 21 - 31 mmol/L [facility] Remisol Creatinine [Mass/Vol] 0.9 mg/dL Normal 0.5 - 1.3 mg/dL [facility] Remisol GFR/1.73 sq M.predicted among non-blacks MDRD (S/P/Bld) [Vol rate/Area] 98 mL/min/1.73 m2 Normal >=59mL/min/1 .73 m2 [facility] Chem S Glucose [Mass/Vol] 174 mg/dL Normal 55 - 199 mg/dL [facility] Remisol Potassium [Moles/Vol] 4.4 mmol/L Normal 3.5 - 5.3 mmol/L [facility] Sodium [Moles/Vol] 137 mmol/L Normal 135 - 145 mmol/L [facility] Remisol Urea nitrogen [Mass/Vol] 13 mg/dL Normal 5 - 21 mg/dL [facility] Remisol Consent for Treatment12-28 Consent for Treatment [id number] .00CD:127 Normal [facility] Creatinineon 01-16-2023 Creatinine [Mass/Vol] 0.9 mg/dL Normal 0.5-1.3 [facility] Comment on above: Performed By: #### 7 [id number] #### [facility] [address] [place] [address] Glucoseon 01-16-2023 Glucose [Mass/Vol] 174 mg/dL Normal 55-199 [facility] Comment on above: Performed By: #### 7 [id number] #### [facility] [address] [place] [address] HEMATOLOGYOrdered By: Ulysses Butler on 01-16-2023 Erythrocyte distribution width (RBC) [Ratio] 12.9 % Normal 10.9 - 14.2 % [facility] HemeAutoSS Hematocrit (Bld) [Volume fraction] 40.7 % Normal 37.7 - 49.0 % [facility]eAutoSS Hemoglobin (Bld) [Mass/Vol] 14.2 g/dL Normal 13.5 - 17.5 gm/dL [facility] HemeAutoSS MCH [...] 226.0 E9/L Normal 150.0 - 500.0 E9/L [facility] RBC (Bld) [#/Vol] 4.8 E12/L Normal 4.3 - 5.9 E12/L [facility]eAuto[facility] WBC corrected for nucl RBC Auto (Bld) [#/Vol] 4.7 E9/L Normal 4.0 - 11.0 E9/L [facility] Lyteson 01-16-2023 Anion gap [Moles/Vol] 9 mmol/L Normal 6-16 [facility] Comment on above: Performed By: #### 7 [id number] #### [facility] [address] [place] [address] Chloride [Moles/Vol] 104 mmol/L Normal 101-111 [facility] Comment on above: Performed By: #### 7 [id number] #### [facility] [address] [place] [address] CO2 [Moles/Vol] 28 mmol/L Normal 21-31 [facility] Comment on above: Performed By: #### 7 [id number] #### [facility] [address] [place] [address] Potassium [Moles/Vol] 4.4 mmol/L Normal 3.5-5.3 [facility] Comment on above: Performed By: #### 7 [id number] #### [facility] [address] [place] [address] Sodium [Moles/Vol] 137 mmol/L Normal 135-145 [facility] Comment on above: Performed By: #### 7 [id number] #### [facility] [address] [place] [address] Physician Orderon 01-16-2023 Physician Order [id number]# 1.00CD:127 Normal [facility] UA With Cult Reflexon 2022 Bacteria LM Ql (Urine sed) TRACE Normal Trace [facility] Comment on above: Performed By: #### 1 [id number] ####[facility] [address] [place] [address] Bilirubin Ql (U) Negative Normal Negative [facility] Comment on above: Performed By: #### 1 [id number] ####[facility] [address] [place] [address] Clarity (U) CLEAR Normal Clear [facility] Comment on above: Performed By: #### 1 [id number] ####[facility] [address] [address] Color (U) YELLOW Normal Yellow [facility] Comment on above: Performed By: #### 1 [id number] ####[address] [address] Epithelial cells.squamous LM.HPF (Urine sed) [#/Area] 0-2 Normal 0-2 [facility] Comment on above: Performed By: #### 1 [id number] ####[address] [address] Glucose Test strip (U) [Mass/Vol] Negative Normal Negative [facility] Comment on above: Performed By: #### 1 [id number] ####[address] [address] Hemoglobin Ql (U) 2+ Abnormal Negative [facility] Comment on above: Performed By: #### 1 [id number] ####[address] [address] Ketones (U) [Mass/Vol] Negative Normal Negative [facility] Comment on above: Performed By: #### 1 [id number] ####[address] [address] [place].plasma/[place] .RBC (Bld) [Mass ratio] 4-20 Normal 0-3 [facility] Comment on above: Performed By: #### 1 [id number] ####[address] [address] Mucus Ql (Urine sed) TRACE Normal [facility] Comment on above: Performed By: #### 1 [id number] ####[address] [address] Nitrite Ql (U) Negative Normal Negative [facility] Comment on above: Performed By: #### 1 [id number] ####[address] [address] pH (U) 6.0 [pH] Invalid Interpretation Code 5.0-9.0 [facility] Comment on above: Performed By: #### 1 [id number] ####[facility] [address] [place] [address] Protein (U) [Mass/Vol] Negative Normal Negative [facility] Comment on above: Performed By: #### 1 [id number] ####[facility] [address] [place] [address] Specific gravity (U) [Rel density] 1.015 Invalid Interpretation Code 1.005-1.030 [facility] Comment on above: Performed By: #### 1 [id number] ####[address] [address] Type of Urine collection method Clean Catch Normal [facility] Comment on above: Performed By: #### 1 [id number] ####[address] [address] Urobilinogen Qn (U) 0.2 {Juan'U}/dL Normal 0.0-1.0 [facility] Comment on above: Performed By: #### 1 [id number] ####[facility] [address] [place] [address] WBC Auto Ql (U) Negative Normal Negative [facility] Comment on above: Performed By: #### 1 [id number] ####[facility] [address] [place] [address] WBC LM.HPF (Urine sed) [#/Area] 0-5 Normal 0-5 [facility] Comment on above: Performed By: #### 1 [id number] ####[facility] [address] [place] [address] URINALYSISOrdered By: John Dumont on 01-16-2023 Bacteria [...] AM) Normal Negative [facility] UA Auto SS [place].plasma/[place] .RBC (Bld) [Mass ratio] 4-20 /HPF Normal 0-3/HPF [facility] UA Auto SS Mucus Ql (Urine sed) Trace (01/16/23 7:55 AM) Normal [facility] UA Auto SS Nitrite Ql (U) Negative (01/16/23 7:55 AM) Normal Negative [facility] UA Auto SS pH (U) 6.0 *NA* (01/16/23 7:55 AM) Invalid Interpretation Code 5.0 - 9.0 [facility] UA Auto SS Protein (U) [Mass/Vol] Negative (01/16/23 7:55 AM) Normal Negative [facility] UA Auto SS Specific gravity (U) [Rel density] 1.015 *NA* (01/16/23 7:55 AM) Invalid Interpretation Code 1.005 - 1.030 [facility] UA Auto SS UA Spec Desc Clean Catch (01/16/23 7:55 AM) Normal [facility] UA Auto SS Urobilinogen Qn (U) 0.0076870 {Juan'U}/dL Normal 0.0 - 1.0 EU/dL [facility] [...] mGy = na DAP = na Normal [facility] eGFRon 01-16-2023 GFR/1.73 sq M.predicted among non-blacks MDRD (S/P/Bld) [Vol rate/Area] 98 mL/min/1.73 m2 Normal >=59 [facility] Comment on above: Order Comment: Order placed by EKM rule. [id number]_[facility] Result Comment: Environmental Services Attendant juliana kidney disease could be indicated at eGFR's of less than 60 mL/min/1.73m2. Kidney failure is indicated at less than 15 mL/min/1.73m2. Performed By: #### 7 [id number] #### [facility] [address] [place] [address] Consent for Treatmenton 12-27 Consent for Treatment [id number]#1 .00CD:127 Normal [facility] Physician Orderon 01-12-2023 Physician Order [id number] #1.00CD:127 Normal [facility] Consent for Treatmenton 12-27 Consent for Treatment [id number]#1 .00CD:127 Normal [facility] Heart and Vascular Office/Cl inic Noteon [...] with voice recognition artificial intelligence software, specifically [employer] and or [employer]. Substitutions may have occurred voice recognition and artificial intelligence software. ATTESTATION: Documentation services were performed after patient or guardian consented to allow [employer] to record this visit. RINA email specialist and provider reviewed before signing. RINA: [...] C, 1000 mg, Oral, Daily Vitamin D, [address] International_Unit, Oral, Daily Allergies HYDROcodone (Itching) Social [...] Prophylaxis SARS-CoV-2 (COV (more content not included)... [facility] Comment on above: Result Comment: Elec tronically Signed By: Jose De Jesus ACOSTA, Matthew Gar\.br\Date and Time Signed: 01/09/23 03:44 EDT\.br\Electronically Co-Signed By: Malathi Perez\.br\Date and Time Co-Signed: 12/30/22 19:01 EDT Insurance Correspondenceon 0 01-04-2023 Insurance Correspondence [id number]# 1.00CD:127 [facility] Consent for Treatmenton Consent for Treatment [id number]#1 .00CD:127 [facility] Physician Orderon 12-30-2022 Physician Order [id number]# 1.00CD:127 [facility] Basic Metabolic Panelon 07-28 Anion gap [Moles/Vol] 17 mmol/L Normal 12-20 [facility] Disciplinary Hearing Officer Comment on above: Result Comment: Effe ctive 06/03/2019 reference range changed. Performed By: #### B SOREN LIPD #### [facility] [address] [place], [place] [id number] Calcium [Mass/Vol] 9.3 mg/dL Normal 8.6-10.2 Ryan coy [place] Disciplinary Hearing Officer Comment on above: Performed By: #### B SOREN LIPD #### [facility] [address] [place], [place] [id number] Chloride [Moles/Vol] 101 mmol/L Normal 98-107 Eh mary [place] Disciplinary Hearing Officer Comment on above: Performed By: #### B SOREN LIPD #### [facility] [address] [place] [id number] CO2 [Moles/Vol] 25 mmol/L Normal 20-31 [facility] Specialist Comment on above: Performed By: #### KAMILA Delacruz MP #### [facility] [address] [place], [place] [id number] Creatinine [Mass/Vol] 0.9 mg/dL Normal 0.7-1.4 [facility] Specialist Comment on above: Performed By: #### KAMILA Delacruz MP #### [facility] [address] [place], [place] [id number] eGFRAA 108 mL/min/1.73m2 Normal >60 [facility] Specialist Comment on above: Performed By: #### KAMILA Delacruz MP #### [facility] [address] [place], [place] [id number] eGFRNAA 89 mL/min/1.73m2 Normal >60 [facility] Specialist Comment on above: Performed By: #### KAMILA Delacruz MP #### [facility] [address] [place], [place] [id number] Glucose [Mass/Vol] 277 mg/dL High 65-99 [facility] Specialist Comment on above: Result Comment: For FASTING Glucose --- ADA reference ranges: Normal 65-99 mg/dl Prediabetes 100-125 Diabetes >/= 126 Performed By: #### KAMILA Delacruz MP #### [facility] [address] [place], [place] [id number] Potassium [Moles/Vol] 4.5 mmol/L Normal 3.5-5.5 [facility] Specialist Comment on above: Performed By: #### KAMILA Delacruz MP #### [facility] [address] [place], [place] [id number] Sodium [Moles/Vol] 138 mmol/L Normal 135-146 [facility] Disciplinary Hearing Officer Comment on above: Performed By: #### KAMILA Delacruz MP #### [facility] [address] [place], [place] [id number] Urea nitrogen [Mass/Vol] 16 mg/dL Normal 7-25 [facility] Comment on above: Performed By: #### KAMILA Delacruz MP #### [facility] [address] [place], [place] [id number] Hemoglobin A1Con 08-18-2021 EAG 271.87 Normal [facility] Comment on above: Performed By: #### A 1C #### [facility] [address] [place], [place] [id number] HbA1c (Bld) [Mass fraction] 11.1 % High 4.0-6.0 [facility] Disciplinary Hearing Officer Comment on above: Performed By: #### A 1C #### [facility] [address] [place], [place] [id number] Lipid Panelon 08-18-2021 Cholesterol [Mass/Vol] 123 mg/dL Low 125-200 [facility] Comment on above: Result Comment: Low risk < 200mg/dL Borderline risk 201-239 mg/dl High risk > or equal to 240 Performed By: #### B SOREN, LIPD #### [facility] [address] [place], [place] [id number] Cholesterol in HDL [Mass/Vol] 42 mg/dL Normal >40 [facility] Disciplinary Hearing Officer Comment on above: Result Comment: High Cardiovascular Risk HDL <40 mg/dL Low Cardiovascular Risk HDL > or equal to 60 mg/dl Performed By: #### B SOREN, LIPD #### [facility] [address] [place], [place] [id number] Cholesterol in LDL [Mass/Vol] 52 mg/dL Normal [facility] Disciplinary Hearing Officer Comment on above: Result Comment: LDL ATP III CLASSIFICATION LDL less than 100 mg/dl Optimal LDL 100-129 mg/dl Near or above optimal LDL 130-159 Borderline high LDL 160-189 High LDL greater than 189 mg/dl Very High Performed By: #### B MP, LIPD #### [facility] [address] [place], [place] [id number] Cholesterol in VLDL [Mass/Vol] 29 mg/dL Normal [facility] Disciplinary Hearing Officer Comment on above: Performed By: #### B SOREN LIPD #### [facility] [address] [place], [place] [id number] Cholesterol.total/Chol esterol in HDL [Mass ratio] 3 {ratio} Normal [facility] Disciplinary Hearing Officer Comment on above: Performed By: #### B MP, LIPD #### [facility] [address] [place], [place] [id number] Triglyceride [Mass/Vol] 145 mg/dL Normal 30-150 [facility] Comment on above: Result Comment: TRIG ATPIII CLASSIFICATIONS TRIG less than 150 mg/dl Normal TRIG 150-199 mg/dl Borderline High TRIG 200-500 mg/dl High TRIG greather than 500 mg/dl Very High Performed By: #### B MP, LIPD #### [facility] [address] [place], [place] [id number] Microalbumin (with Creat)on 08-18-2021 mALB 4.0 mg/dL Normal [facility] Comment on above: Result Comment: mALB reference range not established. Performed By: #### m ALBC #### [facility] [address] [place], [place] [id number] mALB/Creat Ratio 26.5 MCG/MG Normal [facility] Comment on above: Result Comment: The ADA (Diabetes Care 26:S94-S98, 2002) defines abnormalities in Albumin excretion as follows: Category Result (MCG/MG Creatinine) Normal <30 Microalbuminuria 30-299 Clinical Albuminuria > or = 300 Performed By: #### m ALBC #### [facility] [address] [place], [place] [id number] UCREA 151 mg/dL Normal 39-259 [facility] Specialist Comment on above: Performed By: #### m ALBC #### [facility] [address] [place], [place] [id number] QUANTIFERON TB GOLD PLUS (NO N-INC)on 05-19-2021 Comment Incubation performed. Normal [facility] Comment on above: Performed By: #### Q NTTBG #### [facility] [address] [address] [address] Bryce Kaur Criteria Comment Normal [facility] Comment on above: Result Comment: The QuantiFERON-TB Gold Plus result is determined by subtracting the Nil value from either TB antigen (Ag) tube. The mitogen tube serves as a control for the test. Performed By: #### Q NTTBG #### [facility] [address] [address] [address] Bryce Kaur Mitogen Value >10.00 Normal [facility] Comment on above: Performed By: #### Q NTTBG #### [facility] [address] [place] [address] Dr. Bryce Kaur Nill Value 0.04 IU/mL Normal [facility] Comment on above: Performed By: #### Q NTTBG #### [facility] [address] [place] [address] Dr. Bryce Kaur Quantiferon Gold Plus Negative Normal Negative [facility] Comment on above: Result Comment: Chem iluminescence immunoassay methodology Performed By: #### Q NTTBG #### [facility] [address] [place] [address] Dr. Bryce Kaur TB1 Ag Value 0.04 IU/mL Normal [facility] Comment on above: Performed By: #### Q NTTBG #### [facility] [address] [place] [address] Dr. Bryce Kaur TB2 Ag Value 0.06 IU/mL Normal [facility] Comment on above: Performed By: #### Q NTTBG #### [facility] [address] [place] [address] Dr. Bryce Kaur CBC AUTO DIFFon 05-15-2021 BASO # 0.0 103/ul Normal 0.0-0.1 [facility] Comment on above: Performed By: #### C BC #### [facility] [address] [place] [address] Dr. Bryce Kaur Basophils/100 WBC (Bld) 0.4 % Normal 0.2-2.0 [facility] Comment on above: Performed By: #### C BC #### [facility] [address] [place] [address] Dr. Bryce Kaur EO # 0.2 103/ul Normal 0.0-0.7 [facility] Comment on above: Performed By: #### C BC #### [facility] [address] [place] [address] Dr. Bryce Kaur Eosinophils/100 WBC (Bld) 3.5 % Normal 0.9-7.0 [facility] Comment on above: Performed By: #### C BC #### [facility] [address] [place] [address] Dr. Bryce Kaur Erythrocyte distribution width (RBC) [Ratio] 11.9 % Normal 11.0-15.0 [facility] Comment on above: Performed By: #### C BC #### [facility] [address] [place] [address] Dr. Bryce Kaur Hematocrit (Bld) [Volume fraction] 42.3 % Normal 42.0-54.0 [facility] Comment on above: Performed By: #### C BC #### [facility] [address] [place] [address] Dr. Bryce Kaur Hemoglobin (Bld) [Mass/Vol] 15.0 g/dL Normal 14.0-18.0 [facility] Comment on above: Performed By: #### C BC #### [facility] [address] [place] [address] Dr. Bryce Kaur IG # 0.01 10e3/ul Normal 0.00-0.03 [facility] Comment on above: Performed By: #### C BC #### [facility] [address] [place] [address] Dr. Bryce Kaur IG % 0.2 % Normal 0.0-0.5 [facility] Comment on above: Performed By: #### C BC #### [facility] [address] [place] [address] Dr. Bryce Kaur LYMPH # 1.6 103/ul Normal 1.2-3.8 [facility] Comment on above: Performed By: #### C BC #### [facility] [address] [place] [address] Dr. Bryce Kaur Lymphocytes/100 WBC (Bld) 33.9 % Normal 20.5-60.0 [facility] Comment on above: Performed By: #### C BC #### [facility] [address] [place] [address] Dr. Bryce Kaur MANUAL DIFF REQ NO Normal [facility] Comment on above: Performed By: #### C BC #### [facility] [address] [place] [address] Dr. Bryce Kaur MCH (RBC) [Entitic mass] 29.2 pg Normal 25.9-34.0 [facility] Comment on above: Performed By: #### C BC #### [facility] [address] [place] [address] Dr. Bryce Kaur MCHC (RBC) [Mass/Vol] 35.5 g/dL Critically high 29.9-35.2 [facility] Comment on above: Performed By: #### C BC #### [facility] [address] [place] [address] Dr. Bryce Kaur MCV (RBC) [Entitic vol] 82.3 fL Normal 80.0-94.0 [facility] Comment on above: Performed By: #### C BC #### [facility] [address] [place] [address] Dr. Bryce Kaur MONO # 0.4 103/ul Normal 0.3-0.8 [facility] Comment on above: Performed By: #### C BC #### [facility] [address] [place] [address] Dr. Bryce Kaur Monocytes/100 WBC (Bld) 8.0 % Normal 1.7-12.0 [facility] Comment on above: Performed By: #### C BC #### [facility] [address] [place] [address] Dr. Bryce Kaur NEUT # 2.5 103/ul Normal 1.4-6.5 [facility] Comment on above: Performed By: #### C BC #### [facility] [address] [place] [address] Dr. Bryce Kaur Neutrophils/100 WBC (Bld) 54.0 % Normal 43.0-75.0 [facility] Comment on above: Performed By: #### C BC #### [facility] [address] [place] [address] Dr. Bryce Kaur Platelet mean volume (Bld) [Entitic vol] 10.0 fL Normal 9.5-13.5 [facility] Comment on above: Performed By: #### C BC #### [facility] [address] [address] [address] Bryce Kaur PLT 203 103/ul Normal 150-450 [facility] Comment on above: Performed By: #### C BC #### [facility] [address] [address] [address] Bryce Kaur RBC 5.14 106/ul Normal 4.70-6.10 [facility] Comment on above: Performed By: #### C BC #### [facility] [address] [place] [address] Dr. Bryce Kaur WBC 4.6 103/ul Normal 4.0-11.0 [facility] Comment on above: Performed By: #### C BC #### [facility] [address] [place] [address] Dr. Bryce Kaur LIPID PROFILEon 05-15-2021 CHOL-HDL RATIO NORM SEE BELOW Normal [facility] Comment on above: Result Comment: 3.3 - 4.4 LOW RISK 4.4 - 7.1 AVERAGE RISK 7.1 - 11.0 MODERATE RISK >11.0 HIGH RISK Performed By: #### L IPID, BMP, LIVER #### [facility] [address] [place] [address] Dr. Bryce Kaur Cholesterol [Mass/Vol] 114 mg/dL Normal <=200 [facility] Comment on above: Performed By: #### L IPID, BMP, LIVER #### [facility] [address] [place] [address] Dr. Bryce Kaur Cholesterol in HDL [Mass/Vol] 41 mg/dL Normal [facility] Comment on above: Performed By: #### L IPID, BMP, LIVER #### [facility] [address] [place] [address] Dr. Bryce Kaur Cholesterol in LDL [Mass/Vol] 46.0 mg/dL Normal [facility] Comment on above: Performed By: #### L IPID, BMP, LIVER #### [facility] [address] [place] [address] Dr. Bryce Kaur Cholesterol.total/Chol esterol in HDL [Mass ratio] 2.8 {ratio} Normal [facility] Comment on above: Performed By: #### L IPID, BMP, LIVER #### [facility] [address] [address] [address] Bryce Kaur HDL NORMAL > or = 60 mg/dl - LO W CARDIOVASCULAR RISK <40 mg/dl - HIGH CARDIOVASCULAR RISK Normal [facility] Comment on above: Performed By: #### L IPID, BMP, LIVER #### [facility] [address] [address] [address] Bryce Kaur LDL CALC NORMAL SEE BELOW Normal [facility] Comment on above: Result Comment: <100 mg/dl OPTIMAL 100 - 129 mg/dl NEAR OR ABOVE OPTIMAL 130 - 159 mg/dl BORDERLINE HIGH 160 - 189 mg/dl HIGH >190 mg/dl VERY HIGH Performed By: #### L IPID, BMP, LIVER #### [facility] [address] [address] [address] Bryce Kaur Triglyceride [Mass/Vol] 135 mg/dL Normal <=150 [facility] Comment on above: Performed By: #### L IPID, BMP, LIVER #### [facility] [address] [address] [address] Bryce Kaur VLDL CALC 27.0 mg/dL Normal [facility] Comment on above: Performed By: #### L IPID, BMP, LIVER #### [facility] [address] [address] [address] Bryce Kaur LIVER PROFILEon 05-15-2021 Albumin [Mass/Vol] 3.8 g/dL Normal 3.5-5.[address] [facility] Comment on above: Performed By: #### L IPID, BMP, LIVER #### [facility] [address] [address] [address] Bryce Kaur Albumin/Globulin [Mass ratio] 1.4 {ratio} Normal [facility] Comment on above: Performed By: #### L IPID, BMP, LIVER #### [facility] [address] [address] [address] Bryce Kaur ALP [Catalytic activity/Vol] 83 U/L Normal 38-126 [facility] Comment on above: Performed By: #### L IPID, BMP, LIVER #### [facility] [address] [address] [address] Bryce Kaur ALT [Catalytic activity/Vol] 59 U/L Normal 21-72 [facility] Comment on above: Performed By: #### L IPID, BMP, LIVER #### [facility] [address] [address] [address] Bryce Kaur AST [Catalytic activity/Vol] 23 U/L Normal 17-59 [facility] Comment on above: Performed By: #### L IPID, BMP, LIVER #### [facility] [address] [address] [address] Bryce Kaur BILI, CONJUGATED 0.2 mg/dL Normal 0.0-0.3 [facility] Comment on above: Performed By: #### L IPID, BMP, LIVER #### [facility] [address] [place] [address] Dr. Bryce Kaur Bilirubin [Mass/Vol] 0.9 mg/dL Normal 0.2-1.3 [facility] Comment on above: Performed By: #### L IPID, BMP, LIVER #### [facility] [address] [address] [address] Bryce Kaur Globulin (S) [Mass/Vol] 2.7 g/dL Normal [facility] Comment on above: Performed By: #### L IPID, BMP, LIVER #### [facility] [address] [address] [address] Bryce Kaur Protein [Mass/Vol] 6.5 g/dL Normal 6.1-8.[address] [facility] Comment on above: Performed By: #### L IPID, BMP, LIVER #### [facility] [address] [address] [address] Bryce Kaur PROF CHEM 8 (BAS METB)on Anion gap [Moles/Vol] 9.9 mmol/L Normal [facility] Comment on above: Performed By: #### L IPID, BMP, LIVER #### [facility] [address] [place] [address] Dr. Bryce Kaur Calcium [Mass/Vol] 9.5 mg/dL Normal 8.4-10.[address] [facility] Comment on above: Performed By: #### L IPID, BMP, LIVER #### [facility] [address] [address] [address] Bryce Kaur Chloride [Moles/Vol] 98 mmol/L Normal 98-107 [facility] Comment on above: Performed By: #### L IPID, BMP, LIVER #### [facility] [address] [address] [address] Bryce Kaur CO2 [Moles/Vol] 33.2 mmol/L Critically high 22.0-30.0 [facility] Comment on above: Performed By: #### L IPID, BMP, LIVER #### [facility] [address] [place] [address] Dr. Bryce Kaur Creatinine [Mass/Vol] 0.87 mg/dL Normal 0.66-1.25 [facility] Comment on above: Performed By: #### L IPID, BMP, LIVER #### [facility] [address] [place] [address] Dr. Bryce Kaur EGFR-AF INDONESIAN >60 Normal >=60 [facility] Comment on above: Performed By: #### L IPID, BMP, LIVER #### [facility] [address] [place] [address] Dr. Bryce Kaur EGFR-NON AF INDONESIAN >60 Normal >=60 [facility] Comment on above: Performed By: #### L IPID, BMP, LIVER #### [facility] [address] [place] [address] Dr. Bryce Kaur Glucose [Mass/Vol] 255 mg/dL Critically high 74-106 [facility] Comment on above: Performed By: #### L IPID, BMP, LIVER #### [facility] [address] [place] [address] Dr. Bryce Kaur Potassium [Moles/Vol] 4.1 mmol/L Normal 3.4-5.0 [facility] Comment on above: Performed By: #### L IPID, BMP, LIVER #### [facility] [address] [place], [place] [address] Dr. Bryce Kaur Sodium [Moles/Vol] 137 mmol/L Normal 137-[address] [facility] Comment on above: Performed By: #### L IPID, BMP, LIVER #### [facility] [address] [address] [address] Bryce Kaur Urea nitrogen [Mass/Vol] 16.0 mg/dL Normal 9.0-20.0 [facility] Comment on above: Performed By: #### L IPID, BMP, LIVER #### [facility] [address] [place], [place] [address] Dr. Bryce Kaur Urea nitrogen/Creatinine [Mass ratio] 18.4 mg/mg Normal [facility] Comment on above: Performed By: #### L IPID, BMP, LIVER #### [facility] [address] [address] [address] Bryce Kaur Vital Signs Date Time Vital Sign Value Performing Clinician Anabell lity 07-05-2023 14:55-0500 Body height 182.9 cm Yann Pocos DO Work Phone: [facility] 07-05-2023 14:55-0500 Body mass index (BMI) [Ratio] 26.85 kg/m2 Yann Pocos DO Work Phone: [facility] 07-05-2023 14:55-0500 Body weight 89.81 kg Yann Pocos DO Work Phone: [facility] 06-12-2023 09:23-0500 Blood Pressure Location Sean COPE [facility] 06-12-2023 09:23-0500 Diastolic blood pressure 82 mm[Hg] Sean COPE [facility] 06-12-2023 09:23-0500 Heart rate 70 /min Sean COPE [facility] 06-12-2023 09:23-0500 Systolic blood pressure 124 mm[Hg] Sean COPE [facility] 05-08-2023 11:32-0500 Blood Pressure Location Sean COPE [facility] 05-08-2023 11:32-0500 Diastolic blood pressure 83 mm[Hg] Sean COPE [facility] 05-08-2023 11:32-0500 Heart rate 94 /min Sean COPE [facility] 05-08-2023 11:32-0500 Respiratory rate 16 /min Sean COPE [facility] 05-08-2023 11:32-0500 Systolic blood pressure 139 mm[Hg] Sean COPE [facility] 05-01-2023 15:04-0500 Hourly Rounding [facility] 05-01-2023 15:04-0500 Promise to Return [facility] 05-01-2023 14:57-0500 Hourly Rounding [facility] 05-01-2023 14:57-0500 Promise to Return [facility] 05-01-2023 14:55-0500 Hourly Rounding [facility] 05-01-2023 13:39-0500 Promise to Return [facility] 05-01-2023 11:57-0500 Heart rate 83 /min [facility] 05-01-2023 11:57-0500 SaO2% (BldA) [Mass fraction] 96 % [facility] 05-01-2023 11:54-0500 Body temperature 98.24 [degF] [facility] 05-01-2023 11:54-0500 Diastolic blood pressure 85 mm[Hg] Danica [facility] 05-01-2023 11:54-0500 Mean blood pressure 105 mm[Hg] [facility] 05-01-[facility]23 11:54-0500 Systolic blood pressure 146 mm[Hg] [facility] 05-01-2023 07:28-0500 Heart rate 74 /min [facility] 05-01-2023 07:28-0500 SaO2% (BldA) [Mass fraction] 96 % [facility] 05-01-2023 07:27-0500 Diastolic blood pressure 86 mm[Hg] Danica [facility] 05-01-2023 07:27-0500 Mean blood pressure 113 mm[Hg] Danica [facility] 05-01-2023 07:27-0500 Systolic blood pressure 167 mm[Hg] Danica [facility] 05-01-2023 07:27-0500 Body temperature 98.42 [degF] [facility] 05-01-2023 04:30-0500 Blood Pressure Location [facility] 05-01-2023 04:30-0500 Body temperature 98.96 [degF] [facility] 05-01-2023 04:30-0500 Diastolic blood pressure 81 mm[Hg] Danica [facility] 05-01-2023 04:30-0500 Mean blood pressure 105 mm[Hg] Danica [facility] 05-01-2023 04:30-0500 SaO2% (BldA) [Mass fraction] 94 % [facility] 05-01-2023 04:30-0500 Systolic blood pressure 153 mm[Hg] [facility] 05-01-2023 03:30-0500 Blood Pressure Location [facility] 05-01-2023 03:30-0500 Body temperature 100.94 [degF] [facility] 05-01-2023 03:30-0500 Mean blood pressure 119 mm[Hg] [facility] 04-30-2023 22:45-0500 Blood Pressure Location [facility] 04-30-2023 19:41-0500 Heart rate 85 /min [facility] 04-30-2023 19:40-0500 Mean blood pressure 119 mm[Hg] [facility] 04-30-2023 19:40-0500 Body temperature 98.06 [degF] [facility] 04-30-2023 03:05-0500 Body temperature 98.06 [degF] [facility] 04-30-2023 03:05-0500 Respiratory rate 19 /min [facility] 04-30-2023 01:00-0500 Mean blood pressure 96 mm[Hg] [facility] 04-30-2023 00:40-0500 Respiratory rate 18 /min [facility] 04-29-2023 23:40-0500 Heart rate 76 /min [facility] 04-29-2023 17:00-[address] [facility] 04-29-2023 16:50-0500 Heart rate 72 /min [facility] 04-28-2023 23:48-0500 Heart rate 90 /min [facility] 04-28-2023 23:30-0500 Respiratory rate 10 /min [facility] 04-28-2023 23:00-0500 Respiratory rate 18 /min [facility] 04-28-2023 22:04-0500 Respiratory rate 19 /min Danica [facility] 04-28-2023 20:40-0500 gluc 327 mg/dL Danica [facility] 04-28-2023 20:40-0500 gluc [facility] 04-28-2023 20:38-0500 Heart rate 98 /min [facility] 03-27-2023 09:12-0400 Blood Pressure Location Sean COPE [facility] 03-27-2023 09:12-0400 Diastolic blood pressure 76 mm[Hg] Sean COPE [facility] 03-27-2023 09:12-0400 Heart rate 71 /min Sean COPE [facility] 03-27-2023 09:12-0400 Respiratory rate 16 /min Sean COPE [facility] 03-27-2023 09:12-0400 Systolic blood pressure 139 mm[Hg] Sean COPE [facility] 02-07-2023 15:00-0400 Diastolic blood pressure 80 mm[Hg] Yann Atwood [facility] 02-07-2023 15:00-0400 Heart rate 86 /min Yann Atwood [facility] 02-07-2023 15:00-0400 SaO2% (BldA) [Mass fraction] 98 % Yann Atwood [facility] 02-07-2023 15:00-0400 Systolic blood pressure 150 mm[Hg] Yann Atwood [facility] 02-07-2023 14:01-0400 Heart rate 84 /min Yann Pocos [facility] 02-07-2023 14:01-0400 SaO2% (BldA) [Mass fraction] 97 % Yann Pocos [facility] 02-07-2023 14:01-0400 Respiratory rate 18 /min Yann Pocos [facility] 02-07-2023 14:01-0400 Blood Pressure Location Yann Pocos [facility] 02-07-2023 14:01-0400 Diastolic blood pressure 86 mm[Hg] Yann Pocos [facility] 02-07-2023 14:01-0400 Mean blood pressure 106 mm[Hg] Yann Pocos [facility] 02-07-2023 14:01-0400 Systolic blood pressure 147 mm[Hg] Yann Pocos [facility] 02-07-2023 11:47-0400 Heart rate 74 /min Yann Pocos [facility] 02-07-2023 11:47-0400 SaO2% (BldA) [Mass fraction] 97 % Yann Pocos [facility] 02-07-2023 11:45-0400 Respiratory rate 20 /min Yann Pocos [facility] 02-07-2023 11:45-0400 Body temperature 97.34 [degF] Yann Pocos [facility] 02-07-2023 11:44-0400 Blood Pressure Location Yann Pocos [facility] 02-07-2023 11:44-0400 Diastolic blood pressure 88 mm[Hg] Yann Pocos [facility] 02-07-2023 11:44-0400 Mean blood pressure 111 mm[Hg] Yann Pocos [facility] 02-07-2023 11:44-0400 Systolic blood pressure 157 mm[Hg] Yann Pocos [facility] 02-07-2023 11:35-0400 Blood Pressure Location Yann Pocos [facility] 02-07-2023 11:35-0400 Body temperature 98.42 [degF] Yann Pocos [facility] 02-07-2023 11:35-0400 Mean blood pressure 106 mm[Hg] Yann Pocos [facility] 02-07-2023 11:35-0400 Respiratory rate 12 /min Yann Pocos [facility] 02-07-2023 11:25-0400 Mean blood pressure 118 mm[Hg] Yann Pocos [facility] 02-07-2023 11:25-0400 Respiratory rate 10 /min Yann Pocos [facility] 02-07-2023 11:15-0400 Mean blood pressure 117 mm[Hg] Yann Pocos [facility] 02-07-2023 11:15-0400 Respiratory rate 12 /min Yann Pocos [facility] 02-07-2023 10:42-0400 Body temperature 98.42 [degF] Ynan Pocos [facility] 02-07-2023 06:24-0400 Mean blood pressure 111 mm[Hg] Yann Pocos [facility] 02-07-2023 06:21-0400 Heart rate 66 /min Yann Pocos [facility] 01-16-2023 07:52-0400 Diastolic blood pressure 92 mm[Hg] Yann Pocos [facility] 01-16-2023 07:52-0400 Heart rate 75 /min Yann Pocos [facility] 01-16-2023 07:52-0400 Mean blood pressure 116 mm[Hg] Yann Pocos [facility] 01-16-2023 07:52-0400 Systolic blood pressure 163 mm[Hg] Yann Pocos [facility] 01-16-2023 07:51-0400 Heart rate 66 /min Yann Pocos [facility] 01-16-2023 07:51-0400 SaO2% (BldA) [Mass fraction] 97 % Yann Pocos [facility] 01-16-2023 07:50-0400 Body temperature 98.24 [degF] Yann Pocos [facility] 01-16-2023 07:50-0400 Blood Pressure Location Yann Pocos [facility] 01-16-2023 07:50-0400 Diastolic blood pressure 97 mm[Hg] Yann Pocos [facility] 01-16-2023 07:50-0400 Mean blood pressure 118 mm[Hg] Yann Pocos [facility] 01-16-2023 07:50-0400 Systolic blood pressure 161 mm[Hg] Yann Pocos [facility] 01-16-2023 07:50-0400 Respiratory rate 16 /min Yann Pocos [facility] 01-12-2023 10:46-0400 Diastolic blood pressure 92 mm[Hg] Estephania VILLANUEVA [facility] 01-12-2023 10:46-0400 Mean blood pressure 117 mm[Hg] Estephania VILLANUEVA [facility] 01-12-2023 10:46-0400 Systolic blood pressure 168 mm[Hg] Estephaniaricki VILLANUEVA [facility] 01-12-2023 10:29-0400 Blood Pressure Location Estephaniaricki VILLANUEVA [facility] 01-12-2023 10:29-0400 Diastolic blood pressure 90 mm[Hg] Estephaniaricki VILLANUEVA [facility] 01-12-2023 10:29-0400 Heart rate 61 /min Estephaniaricki VILLANUEVA [facility] 01-12-2023 10:29-0400 SaO2% (BldA) [Mass fraction] 98 % Estephania VILLANUEVA [facility] 01-12-2023 10:29-0400 Systolic blood pressure 168 mm[Hg] Estephaniaricki VILLANUEVA [facility] 11-24-2021 14:25-0400 Diastolic blood pressure 80 mm[Hg] Matthew Christofferson [facility] 11-24-2021 14:25-0400 Mean blood pressure 106 mm[Hg] Matthew Christofferson [facility] 11-24-2021 14:25-0400 Systolic blood pressure 159 mm[Hg] Matthew Christofferson [facility] 11-24-2021 14:15-0400 Blood Pressure Location Matthew Christofferson [facility] 11-24-2021 14:15-0400 Diastolic blood pressure 81 mm[Hg] Matthew Christofferson [facility] 11-24-2021 14:15-0400 Heart rate 66 /min Matthew Christofferson [facility] 11-24-2021 14:15-0400 Respiratory rate 18 /min Matthew Dela Cruz [facility] 11-24-2021 14:15-0400 SaO2% (BldA) [Mass fraction] 100 % Matthew Dela Cruz [facility] 11-24-2021 14:15-0400 Systolic blood pressure 153 mm[Hg] Matthew Dela Cruz [facility] Encounters Encounter Date Encounter Type Care Provider Facility Start: 12-15-2023 End: 12-15-2023 ambulatory TARUN SORIA Facility:[facility] Start: 11-29-2023 End: 11-29-2023 ambulatory BARBARA PERSAUD Not Available Start: 11-27-2023 End: 11-27-2023 ambulatory TEDDY POCOS Not Available Start: 11-16-2023 End: 11-16-2023 ambulatory Antonio Kitchen Facility:[facility] Start: 11-16-2023 End: 11-16-2023 ambulatory Xuan Devine [employer] Facility:[facility] Start: 09-26-2023 End: 09-26-2023 ambulatory LEYDI LEMONS Not Available Start: 08-29-2023 End: 08-29-2023 ambulatory ANTONIO KITCHEN Not Available Start: 08-23-2023 End: 08-23-2023 ambulatory TEDDY POCOS Not Available Start: 08-03-2023 End: 08-03-2023 ambulatory Antonio Kitchen Facility:[facility] Start: 07-17-2023 End: 07-17-2023 ambulatory TEDDY POCOS Not Available Start: 07-13-2023 End: 07-13-2023 ambulatory Deion Hamlin PT Work Phone: [facility] Comment on above: Acute pain of right knee (Primary Dx) Start: 07-13-2023 Bamboo flowsheet Deion proctor PT Work Phone: [facility] Start: 07-13-2023 Bamboo flowsheet Deion proctor PT Work Phone: [facility] Start: 07-12-2023 Chart abstracting Deion michael PT Work Phone: [facility] Start: 07-10-2023 End: 07-10-2023 ambulatory Chichi Joellen [employer] [facility] Comment on above: Acute pain of right knee (Primary Dx); Lumbar radiculopathy; Radiculopathy, lumbar region; Gait disturbance; Presence of right artificial knee joint; Primary osteoarthritis of right knee Start: 07-10-2023 Bamboo flowsheet Chichi Daradha [employer] [facility] Start: 07-10-2023 Bamboo flowsheet Chichi Daradha [employer] [facility] Start: 07-06-2023 End: 07-06-2023 ambulatory Deion Hamlin PT Work Phone: [facility] Comment on above: Acute pain of right knee (Primary Dx); Radiculopathy, lumbar region; Presence of right artificial knee joint Start: 07-05-2023 End: 07-06-2023 ambulatory Yann Grant Pocos Facility:[facility] Start: 07-05-2023 End: 07-05-2023 Patient encounter procedure Teddy Pocos DO Work Phone: [facility] Comment on above: Presence of right ar tificial knee joint (Primary Dx); Chronic pain of right knee Start: 07-05-2023 End: 07-05-2023 ambulatory YANN Grant POCOS Not Available Start: 07-05-2023 Clinisync Result Encounter Yann Grant Pocos DO Work Phone: [facility] Unsolicited Start: 07-05-2023 Clinisync Result Encounter Teddy Pocos DO Work Phone: [facility] Unsolicited Start: 07-03-2023 End: 07-03-2023 ambulatory CHICHI CUENCA Not Available Start: 06-30-2023 Bamboo flowsheet Matheus Wengerd PT A [facility] Start: 06-30-2023 Bamboo flowsheet Matheus Wengerd PT A [facility] Start: 06-30-2023 End: 06-30-2023 ambulatory MATHEUS WENGERD Not Available Start: 06-27-2023 End: 06-27-2023 ambulatory MATHEUS WENGERD Not Available Start: 06-22-2023 End: 06-22-2023 ambulatory DEION D GUNDLACH Not Available Start: 06-20-2023 End: 06-20-2023 ambulatory MATHEUS WENGERD Not Available Start: 06-16-2023 End: 06-16-2023 ambulatory CHICHI DAHM Not Available Start: 06-14-2023 End: 06-14-2023 ambulatory CHICHI DAHM Not Available Start: 06-12-2023 End: 06-13-2023 ambulatory Sean COPE Facility:[facility] Start: 06-12-2023 End: 06-12-2023 Patient encounter procedure Sean COPE [facility] Start: 06-09-2023 End: 06-09-2023 ambulatory MATHEUS WENGERD Not Available Start: 06-06-2023 End: 06-06-2023 ambulatory DEION D GUNDLACH Not Available Start: 06-01-2023 End: 06-01-2023 ambulatory MATHEUS WENGERD Not Available Start: 06-01-2023 End: 06-01-2023 ambulatory ANTONIO KITCHEN Not Available Start: 05-31-2023 End: 05-31-2023 ambulatory SOUMYA LOMAX Not Available Start: 05-30-2023 End: 05-30-2023 ambulatory DEION D GUNDLACH Not Available Start: 05-24-2023 End: 05-24-2023 ambulatory ANTONIO DELATORREMAN Not Available Start: 05-23-2023 End: 05-23-2023 ambulatory MATHEUS WENGERD Not Available Start: 05-19-2023 End: 05-19-2023 ambulatory DEION D GUNDLACH Not Available Start: 05-17-2023 End: 05-17-2023 ambulatory YANN ATWOOD Not Available Start: 05-08-2023 End: 05-09-2023 ambulatory Sean COPE Facility:[facility] [place] Start: 05-08-2023 End: 05-08-2023 Patient encounter procedure Sean COPE [facility] Start: 04-29-2023 End: 05-01-2023 Evaluation and management of inpatient Sean COPE Facility:[facility] Start: 04-28-2023 End: 05-01-2023 Evaluation and management of inpatient Danica Antonio [facility] Start: 04-27-2023 End: 04-28-2023 ambulatory Sean COPE Facility:[id number] Start: 04-24-2023 End: 04-24-2023 ambulatory MATHEUS WENGERD Not Available Start: 04-18-2023 End: 04-18-2023 ambulatory MATHEUS WENGERD Not Available Start: 04-13-2023 End: 04-13-2023 ambulatory DEIONSHANELL OLEAACH Not Available Start: 04-12-2023 End: 04-12-2023 ambulatory TEDDY POCOS Not Available Start: 04-11-2023 End: 04-11-2023 ambulatory DEION D GUNDLACH Not Available Start: 03-27-2023 End: 03-28-2023 ambulatory Sean COPE Facility:[facility] Start: 03-27-2023 End: 03-27-2023 Patient encounter procedure Sean COPE [facility] Start: 03-08-2023 End: 03-09-2023 ambulatory Teddy Pocos Facility:[facility] Start: 03-08-2023 End: 03-08-2023 Patient encounter procedure Teddy Pocos [facility] Start: 02-07-2023 End: 02-07-2023 ambulatory Teddy Pocos Facility:[facility] Start: 02-07-2023 End: 02-07-2023 Admission to same day surgery center Teddy Pocos [facility] Start: 01-16-2023 End: 01-17-2023 ambulatory Teddy Pocos Facility:[facility] Start: 01-16-2023 End: 01-16-2023 Patient encounter procedure Yann Atwood [facility] Start: 01-12-2023 End: 01-13-2023 ambulatory XXXX NONE Facility:[facility] Start: 01-12-2023 End: 01-12-2023 Patient encounter procedure Estephania VILLANUEVA [facility] Start: 01-09-2023 End: 01-10-2023 ambulatory Matthew Dela Cruz Facility:[facility] Start: 01-09-2023 End: 01-09-2023 Patient encounter procedure Matthew Dela Cruz [facility] Start: 01-06-2023 ambulatory Yann Atwood Facility:[facility] Start: 12-30-2022 End: 12-31-2022 ambulatory XXXX NONE Facility:[facility] Start: 11-24-2021 End: 11-24-2021 Patient encounter procedure Matthew Dela Cruz [facility] Start: 05-15-2021 End: 05-16-[address] NEAL CORNELL Facility:[facility] Procedures Date Procedure Procedure Detail Performing Clinician Start: 07-05-2023 [facility] CBC W/ AUTO DIFF D avid A Pocos DO Work Phone: Start: 07-05-2023 Radiologic examinati on knee 3 views Yann Grant Pocos DO Work Phone: Start: 04-27-2023 Extracorporeal shock wave lithotripsy of calculus of kidney Sean COPE Start: 02-07-2023 Total knee replacement Yann Atwood Start: 02-24-2020 Cardiac catheterization Matthew Dela Cruz [...] Sean COPE Start: 11-21-2016 Colonoscopy Matheus covington [employer] Start: 05-29-2005 Shoulder joint unsta ble (finding) Matthew Andrewsemily Comment on above: rotater cuff Start: 05-29-2003 Fracture of hand (disorder) Matthew Dela Cruz Start: 05-29-2001 Tonsillectomy Matthew hess Start: 05-29-1978 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) Matthew Dela Cruz Start: 05-29-1973 Bone structure of fe mur (body structure) Matthew Dela Cruz 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) Matthew Andrewsmeily Comment on above: x1 Plan of Treatment Date Care Activity Detail Author Start: 11-21-2026 Screening for malign ant neoplasm of colon [facility] Start: 05-19-2024 Urine screening for protein Diabetes: Urine Protein Screening [facility] Start: 12-15-2023 ambulatory Ambulatory Facility:[facility] Start: 12-08-2023 Glaucoma screening Diabetes: R etinopathy Screening [facility] Start: 08-23-2023 End: 08-23-2023 Patient encounter procedure [facility] Start: 08-18-2023 Hemoglobin A1c measurement Diabetes[facility] Start: 07-27-2023 End: 07-27-2023 ambulatory 07/27/2023 4:00 PM EST Treatment [facility] [address] [place] [address] Deion Hamlin, PT [address] [place] [address] [facility] Start: 07-25-2023 End: 07-25-2023 ambulatory 07/25/2023 4:00 PM EST Treatment [facility] [address] [place] [address] [place]us [place] [facility] Start: 07-20-2023 End: 07-20-2023 ambulatory 07/20/2023 4:00 PM EST Treatment [facility] [facility] [address] [place] [address] Deion Hamlin, PT [address] [place] [address] [facility] Start: 07-18-2023 End: 07-18-2023 ambulatory 07/18/2023 4:00 PM EST Treatment [facility] [address] [place] [address] Deion Hamlin, PT [address] [place] [address] [facility] Start: 07-13-2023 End: 07-13-2023 ambulatory 07/13/2023 4:00 PM EST Treatment [facility] [address] [place] [address] Deion Hamlin, PT [address] [place] [address] [facility] Start: 07-11-2023 End: 07-11-2023 ambulatory 07/11/2023 4:00 PM EST Treatment [facility] [address] [place] [address] Deion Hamlin, PT [address] [place] [address] [facility] Start: 07-10-2023 End: 07-10-2023 ambulatory 07/10/2023 3:30 PM EST Treatment [facility] [address] [place] [address] Chichi Cuenca PTA [facility] Start: 07-06-2023 End: 07-06-2023 ambulatory 07/06/2023 4:00 PM EST Treatment [facility] [address] [place] [address] Deion Hamlin, PT [address] [place] [address] [facility] Start: 07-05-2023 End: 07-05-2024 C reactive protein [Mass/volume] in Serum or Plasma C-reactive protein Lab Routine Presence of right artificial knee joint Chronic pain of right knee Expected: 07/05/2023 (Approximate), Expires: 07/05/2024 [facility] Comment on above: Expected: 07/05/2023 (Approximate), Expires: 07/05/2024 Start: 07-05-2023 End: 07-05-2024 CBC W Auto Differential panel - Blood CBC auto differential Lab Routine Presence of right artificial knee joint Chronic pain of right knee Expected: 07/05/2023 (Approximate), Expires: 07/05/2024 [facility] Work Phone: Comment on above: Expected: 07/05/2023 (Approximate), Expires: 07/05/2024 Start: 07-05-2023 End: 07-05-2024 Erythrocyte sedimentation rate Sedimentation rate, automated Lab Routine Presence of right artificial knee joint Chronic pain of right knee Expected: 07/05/2023 (Approximate), Expires: 07/05/2024 [facility] Comment on above: Expected: 07/05/2023 (Approximate), Expires: 07/05/2024 Start: 07-04-2023 End: 07-04-2023 ambulatory 07/04/2023 4:00 PM EST Treatment [facility] [address] [place] [phone] Deion Hamlin, PT [address] [place] [address] [facility] Start: 06-30-2023 End: 06-30-2023 ambulatory 06/30/2023 7:30 AM EST Treatment [facility] [address] [place] [phone] Matheus [place], [employer] Arrived [facility] Comment on above: Arrived Start: 1965 Screening for malign ant neoplasm of colon [facility] Immunizations Immunization Date Immunization Notes Care Provider Ivone [facility] 05-24-2023 Influenza, injectable, Madin [place] Canine Kidney, preservative free, quadrivalent Matheus [place] [employer] [facility] 03-29-2022 pneumococcal 20-valent conjugate vaccine Sean COPE [facility] 03-04-2022 influenza virus vaccine, unspecified formulation Sean COPE [facility] 03-09-2021 influenza virus vaccine, unspecified formulation Sean COPE [facility] 03-09-2021 SARS-CoV-2 (COVID-19 ) mRNA BNT-162b2 vax Sean COPE [facility] 08-28-2020 COVID-19, mRNA, LNP-S, PF, 30 mcg/0.3 mL dose Matthew Dela Cruz [facility] Comment on above: Reason for Medicatio n: Prophylaxis 08-07-2020 COVID-19, mRNA, LNP-S, PF, 30 mcg/0.3 mL dose Matthew Dela Cruz [facility] Comment on above: Reason for Medicatio n: Prophylaxis 03-30-2020 diphtheria, tetanus toxoids and pertussis vaccine Matheus [place] [facility] 03-30-2020 tetanus and diphtheria toxoids, adsorbed, preservative free, for adult use (5 Lf of tetanus toxoid and 2 Lf of diphtheria toxoid) Matheus [place] [facility] 03-02-2020 influenza virus vaccine, unspecified formulation Sean COPE [facility] Payers Date Payer Category Payer Self-pay 2022 Worker's Compensation GENERIC [employer]' COMP GENERIC WORKERS' COMP [id number] 2022-Present [phone] [place] [id number] 2022 Worker's Compensation [id number] 2019 Unknown [id number] 1.13.693.2 .7.3.551151.315 1963 Unknown [id number] 2.16.840.1.495640.3.579.2 .593 1963 Unknown [id number] 2.16.840.1.126912.3.579.2 .727 1963 Unknown [id number] 2.16.840.1.481011.3.579.2 .727 1963 Unknown [id number] 2.16.840.1.583821.3.579.2 .1963 Unknown [id number] 2.16.840.1.674036.3.579.2 1963 Unknown [id number] 2.16.840.1.638344.3.579.2 1963 Unknown [id number] 2.16.840.1.152060.3.579.2 1963 Unknown [id number] 2.16.840.1.478393.3.579.2 1963 Unknown [id number] 2.16.840.1.931408.3.579.2 1963 Unknown [id number] 2.16.840.1.380722.3.579.2 1963 Unknown [id number] 2.16.840.1.308586.3.579.2 1963 Unknown [id number] 2.16.840.1.601123.3.579.2 1963 Unknown [id number] 2.16.840.1.528939.3.579.2 1963 Unknown [id number] 2.16.840.1.050136.3.579.2 1963 Unknown [id number] 2.16.840.1.125392.3.579.2 1963 Unknown [id number] 2.16.840.1.383529.3.579.2 .196 1963 Unknown [id number] 2.16.840.1.868666.3.579.2 .1258 1963 Unknown [id number] 2.16.840.1.044836.3.579.2 1963 Unknown [id number] 2.16.840.1.250381.3.579.2 .1258 1963 Unknown [id number] 2.16.840.1.142931.3.579.2 .1258 1963 Unknown [id number] 2.16.840.1.926184.3.579.2 .1258 1963 Unknown [id number] 2.16.840.1.759377.3.579.2 .1258 1963 Unknown [id number] 2.16.840.1.249181.3.579.2 .1258 1963 Unknown [id number] 2.16.840.1.311702.3.579.2 .1258 1963 Unknown [id number] 2.16.840.1.349623.3.579.2 .1258 1963 Unknown [id number] 2.16.840.1.949413.3.579.2 .1258 1963 Unknown [id number] 2.16.840.1.746493.3.579.2 .1258 1963 Unknown [id number] 2.16.840.1.711196.3.579.2 .1258 1963 Unknown [id number] 2.16.840.1.700410.3.579.2 .1258 1963 Unknown [id number] 2.16.840.1.765435.3.579.2 .1258 1963 Unknown [id number] 2.16.840.1.876264.3.579.2 .1258 1963 Unknown [id number] 2.16.840.1.147807.3.579.2 .1258 1963 Unknown [id number] 2.16.840.1.814974.3.579.2 .1258 1963 Unknown [id number] 2.16.840.1.089122.3.579.2 .1258 1963 Unknown [id number] 2.16.840.1.827883.3.579.2 .1258 1963 Unknown [id number] 2.16.840.1.049002.3.579.2 .1258 1963 Unknown [id number] 2.16.840.1.738854.3.579.2 .1258 1963 Unknown [id number] 2.16.840.1.619209.3.579.2 .1258 1963 Unknown [id number] 2.16.840.1.974413.3.579.2 .1258 1963 Unknown [id number] 2.16.840.1.600799.3.579.2 .1258 1963 Unknown [id number] 2.16.840.1.915391.3.579.2 .1258 1963 Unknown [id number] 2.16.840.1.139183.3.579.2 .1258 1963 Unknown [id number] 2.16.840.1.371329.3.579.2 .1258 1963 Unknown [id number] 2.16.840.1.427414.3.579.2 .1258 1963 Unknown [id number] 2.16.840.1.068282.3.579.2 .1258 1963 Unknown [id number] 2.16.840.1.360810.3.579.2 .1258 1963 Unknown [id number] 2.16.840.1.028727.3.579.2 .1258 1963 Unknown [id number] 2.16.840.1.995103.3.579.2 .1258 1963 Unknown [id number] 2.16.840.1.425850.3.579.2 .1258 1963 Unknown [id number] 2.16.840.1.734379.3.579.2 .1258 1963 Unknown [id number] 2.16.840.1.569105.3.579.2 .1258 1963 Unknown [id number] 2.16.840.1.092676.3.579.2 .1258 1963 Unknown [id number] 2.16.840.1.007841.3.579.2 .1258 1963 Unknown [id number] 2.16.840.1.397513.3.579.2 .1258 1963 Unknown [id number] 2.16.840.1.374197.3.579.2 .1258 1963 Unknown [id number] 2.16.840.1.196109.3.579.2 .1258 1963 Unknown [id number] 2.16.840.1.528663.3.579.2 .1258 1963 Unknown [id number] 2.16.840.1.952540.3.579.2 .1258 1963 Unknown [id number] 2.16.840.1.374567.3.579.2 .1258 1963 Unknown [id number] 2.16.840.1.617922.3.579.2 .1258 1963 Unknown [id number] 2.16.840.1.349530.3.579.2 .1258 1963 Unknown [id number] 2.16.840.1.918629.3.579.2 .1258 1963 Unknown [id number] 2.16.840.1.615479.3.579.2 .1258 1963 Unknown [id number] 2.16.840.1.378135.3.579.2 .1258 1963 Unknown [id number] 2.16.840.1.980680.3.579.2 .1258 1963 Unknown [id number] 2.16.840.1.472800.3.579.2 .1258 1963 Unknown [id number] 2.16.840.1.191980.3.579.2 .1258 1963 Unknown [id number] 2.16.840.1.485821.3.579.2 .1258 1963 Unknown [id number] 2.16.840.1.691444.3.579.2 .1258 1963 Unknown [id number] 2.16.840.1.304586.3.579.2 .1258 1963 Unknown [id number] 2.16.840.1.673442.3.579.2 .1258 1963 Unknown [id number] 2.16.840.1.496798.3.579.2 .1258 1963 Unknown [id number] 2.16.840.1.063242.3.579.2 .1258 1963 Unknown [id number] 2.16.840.1.557306.3.579.2 .1258 1963 Unknown [id number] 2.16.840.1.065072.3.579.2 .1258 1963 Unknown [id number] 2.16.840.1.259902.3.579.2 .1258 1963 Unknown [id number] 2.16.840.1.290410.3.579.2 .1258 1963 Unknown [id number] 2.16.840.1.754952.3.579.2 .1258 1963 Unknown [id number] 2.16.840.1.819170.3.579.2 .1258 1963 Unknown [id number] 2.16.840.1.911812.3.579.2 .1258 1963 Unknown [id number] 2.16.840.1.310512.3.579.2 .1258 1963 Unknown [id number] 2.16.840.1.879458.3.579.2 .1258 1963 Unknown [id number] 2.16.840.1.270408.3.579.2 .1258 1963 Unknown [id number] 2.16.840.1.304964.3.579.2 .1258 1963 Unknown [id number] 2.16.840.1.548758.3.579.2 .1259 1963 Unknown [id number] 2.16.840.1.794114.3.579.2 .1259 1963 Unknown [id number] 2.16.840.1.622095.3.579.2 .718 1963 Unknown [id number] 2.16.840.1.712639.3.579.2 .718 1963 Unknown [id number] 2.16.840.1.416604.3.579.2 .718 1959 Unknown [id number] Unknown [id number] 2.16.840.1.116057.3.579.2 .531 Social History Date Type Detail Facility Tobacco Cigarettes [facility] Comment on above: quit 29 yrs ago-[facility] 1-1.5ppd Start: 12-01-2022 End: 05-24-2023 Sex Assigned At Male [facility] Start: 12-30-2022 End: 06-12-2023 Tobacco smoking status Ex-smoker (finding) [facility] Comment on above: quit 29 yrs ago-[facility] 1-1.5ppd Tobacco smoking status Never [facility] Comment on above: quit 29 yrs ago-[facility] 1-1.5ppd Start: 05-29-1980 End: 05-29-1989 History of tobacco use Current smoker [facility] Start: 05-29-1980 End: 05-29-1989 History of tobacco use Cigarette Smoker [facility] Start: 12-01-2022 End: 02-19-2023 Cigarettes smoked current (pack per day) - Reported 1 [facility] History of tobacco use Passive smoker [facility] Start: 02-19-2023 Tobacco use and exposure Smokeless tobacco non-user [facility] Start: 06-01-2023 End: 07-05-2023 Alcohol intake Current drinker of alcohol (finding) [facility] How often to you hav e a drink containing alcohol? Monthly or less [facility] How many standard drinks containing alcohol do you have on a typical day? 1 or 2 [facility] How often do you hav e 6 or more drinks on 1 occasion? Never [facility] Start: 02-19-2023 Tobacco Comment Last smoked : > 10 years [facility] Start: 02-19-2023 Alcohol Comment Caffeine intak e: 1-2 cups per day [facility] Start: 1965 Sex Assigned At Not [...] TO TEST SUGA R TWICE A DAY [id number] Start: 12-23-2021 USE TO TEST BLOO D SUGAR TWICE A DAY [id number] Start: 04-12-2022 KNEE TOTAL ROBOT ARTHROPLASTY Pocos DO, Yann [...] 12-26-2019 Functional Status Date Assessment Result Facility 06-12-2023 Functional Status N/A [facility] 05-08-2023 Functional Status N/A [facility] 04-29-2023 Functional Status No [facility] 04-28-2023 Functional Status [facility] 03-27-2023 Functional Status N/A [facility] 01-16-2023 Functional Status No [facility] 01-12-2023 Functional Status No [facility] 11-24-2021 Functional Status N/A [facility] Clinical Notes 01-10-2023 to 12-18-2023 Deion Hamlin, PT - 07/13/2023 4:00 PM Hermann Hamlin, PT - 07/06/2023 4:00 PM Feli Harris - 07/05/2023 2:45 PM EST Note Date & Type Note Facility 12-18-2023 Note [id number] [facility] 12-15-2023 Note [facility] SURGERY Clinical Discharge Summary PERSON INFORMATION Name JANICE SMYTH Age 58 Years 1965 Sex MALE Language Japanese PCP Antonio Kitchen DO Marital Status Med Service Pain Management Surgery Acct# Arrival 12/15/2023 09:47:56 Visit Reason LUMBAR PAIN Acuity LOS 022 23:16 Address: [facility] [address] [place] [id number] Comment: PROVIDER INFORMATION VITALS INFORMATION Vital Sign Triage Latest Temp Oral Temp Temporal Temp Intravascular Temp Axillary Temp Rectal 02 Sat Respiratory Rate Peripheral Pulse Rate Apical Heart Rate Blood Pressure / / Comment: MEDICAL INFORMATION Allergy Info: No known allergies Prescriptions Given: atorvastatin (atorvastatin 80 mg oral tablet) TAKE 1 TABLET BY MOUTH AT BEDTIME. ezetimibe (ezetimibe 10 mg oral tablet) TAKE 1 TABLET BY MOUTH EVERYDAY AT BEDTIME. gabapentin (gabapentin 100 mg oral capsule) TAKE 1 CAPSULE BY MOUTH IN THE MORNING, EVENING AND BEFORE BEDTIME. ixekizumab (Taltz Autoinjector 80 mg/mL subcutaneous solution) losartan (losartan 100 mg oral tablet) TAKE 1 TABLET BY MOUTH EVERY DAY. metFORMIN (metFORMIN 500 mg oral tablet) semaglutide (Rybelsus 14 mg oral tablet) TAKE 1 TABLET BY MOUTH EVERY DAY. Medication List: Medications to Continue That Have Not Changed Other Medications atorvastatin (atorvastatin 80 mg oral tablet) TAKE 1 TABLET BY MOUTH AT BEDTIME. ezetimibe (ezetimibe 10 mg oral tablet) TAKE 1 TABLET BY MOUTH EVERYDAY AT BEDTIME. gabapentin (gabapentin 100 mg oral capsule) TAKE 1 CAPSULE BY MOUTH IN THE MORNING, EVENING AND BEFORE BEDTIME. ixekizumab (Taltz Autoinjector 80 mg/mL subcutaneous solution) losartan (losartan 100 mg oral tablet) TAKE 1 TABLET BY MOUTH EVERY DAY. metFORMIN (metFORMIN 500 mg oral tablet) semaglutide (Rybelsus 14 mg oral tablet) TAKE 1 TABLET BY MOUTH EVERY DAY. Medications to Continue That Have Not Changed Other Medications atorvastatin (atorvastatin 80 mg oral tablet) TAKE 1 TABLET BY MOUTH AT BEDTIME. ezetimibe (ezetimibe 10 mg oral tablet) TAKE 1 TABLET BY MOUTH EVERYDAY AT BEDTIME. gabapentin (gabapentin 100 mg oral capsule) TAKE 1 CAPSULE BY MOUTH IN THE MORNING, EVENING AND BEFORE BEDTIME. ixekizumab (Taltz Autoinjector 80 mg/mL subcutaneous solution) losartan (losartan 100 mg oral tablet) TAKE 1 TABLET BY MOUTH EVERY DAY. metFORMIN (metFORMIN 500 mg oral tablet) semaglutide (Rybelsus 14 mg oral tablet) TAKE 1 TABLET BY MOUTH EVERY DAY. Medications to Continue That Have Not Changed Other Medications atorvastatin (atorvastatin 80 mg oral tablet) TAKE 1 TABLET BY MOUTH AT BEDTIME. ezetimibe (ezetimibe 10 mg oral tablet) TAKE 1 TABLET BY MOUTH EVERYDAY AT BEDTIME. gabapentin (gabapentin 100 mg oral capsule) TAKE 1 CAPSULE BY MOUTH IN THE MORNING, EVENING AND BEFORE BEDTIME. ixekizumab (Taltz Autoinjector 80 mg/mL subcutaneous solution) losartan (losartan 100 mg oral tablet) TAKE 1 TABLET BY MOUTH EVERY DAY. metFORMIN (metFORMIN 500 mg oral tablet) semaglutide (Rybelsus 14 mg oral tablet) TAKE 1 TABLET BY MOUTH EVERY DAY. Comment: Lab and Radiology Results Laboratory or Other Results This Visit (last charted value for your 12/15/2023 visit) No Laboratory or Other Results This Visit DIET & ACTIVITY Patient Activity Level: Patient Diet: Patient Activity Restrictions: DISCHARGE INFORMATION Discharge Disposition: Discharge Location: DEPART REASON INCOMPLETE INFORMATION PATIENT EDUCATION INFORMATION Instructions: Follow up: DIAGNOSIS Comment: PHYS DOC NOTES [facility] 11-16-2023 Note PROCEDURE: XR Sacrum /Coccyx Minimum 2 Views COMPARISON: None. HISTORY: sacroiliitis FINDINGS: SACRUM: No fracture, disruption of the sacral ala line, or cortical irregularity. COCCYX: No fracture or suspicious alignment. SOFT TISSUES: No widening of the sacroiliac joints. No radiopaque foreign body. OTHER: Degenerative spondylosis of the spine. Multiple pelvic phleboliths IMPRESSION: No acute abnormality Final Dictated by: Yann Mccormack MD Dictated DT/TM: 11/23/23 4:16 Signed (Electronic Signature): Yann Mccormack MD 11/23/23 4:17 pm Technologist: [facility] 07-13-2023 History of Present illness Narrative Physical Therapy Physical Therapy Treatment Visit Patient Name: Janice Smyth Today's Date: 07/13/2023 Reason: s/p right TKA 02/07/2023 Visit number: 14 (36 total) Supervised time: 28 Total time: 48 Precautions: WBAT Subjective Pain: continues to have pain globally around the knee with any ROM, activity, weightbearing. Overall progress: No progress, potentially worse the last week. Has not been scheduled with neurology yet. Given the lack of progress with PT, and pending test results we will trial 3 week hold from PT. Return sooner if he see's regression. Also notes he had blood in urine after last treatment, and had CT scan with urology that shows small bleed. Will hold off on traction today despite improving his symptoms due to compression of abdominals with belts. Objective KNEE AROM: R knee extension 0 R knee flexion 109 MMT: R knee extension full. Lack of full TKE control today ~5 deg lag LAQ Palpation: Incision closed, healing well Functional: reciprocal Stairs- reciprocal Treatment: Therapeutic Exercise: x16 minutes supervised, x10 minutes unsupervised for ROM, strength Manual: x 12 minutes consisting of STM to quad EOB Modalities: x10 minutes MHP post session. Premod estim trial without success conducting. Assessment: 3 week independent trial given no improvement/worsening of symptoms. HEP updated today to maintain ROM, quad strength as tolerated. Plan 3 week independent trial. Return sooner if symptoms regress. I hereby deem this POC medically necessary. Please sign below and fax back to the number below. Physician Signature: Date: documented in this encounter [facility] 07-06-2023 History of Present illness Narrative Physical Therapy Physical Therapy Treatment Visit Patient Name: Janice Smyth Today's Date: 07/06/2023 Reason: s/p right TKA 02/07/2023 Visit number: 12 (34 total) Supervised time: 30 Total time: 45 Precautions: WBAT Subjective Pain: no change in pain symptoms Overall progress: Had follow up with Dr tAwood. Bloodwork negative. Will have EMG to help differentiate symptoms. Objective KNEE AROM: R knee extension 0 R knee flexion 117 MMT: R knee extension full Palpation: Incision closed, healing well Good patellar mobility Functional: reciprocal Stairs- reciprocal Treatment: Therapeutic Exercise: x14 minutes supervised, x10 minutes unsupervised for ROM, strength Manual: x 16 minutes consisting of ISTM to quad EOB; and HS prone Modalities: supine mechanical traction x15 minutes (90#/45#) Assessment: Despite increased pain, best flexion to date. Continue pool/land hybrid and lumbar traction to manage neurogenic symptoms Plan Continue PT per POC I hereby deem this POC medically necessary. Please sign below and fax back to the number below. Physician Signature: Date: documented in this encounter [facility] 07-05-2023 History of Present illness Narrative Janice Smyth is a 57 y.o. male presents with chief complaint of right knee pain and swelling, status post total knee arthroplasty. HPI: Janice returns here today roughly five months out on his right total knee. He continues to have pain, difficulty and swelling. He states that he is looking for any and all answers. He is still doing therapy. He states that he did have a couple of injuries related to his dogs. He describes the fact that the therapists recommended that he have an aspiration of his knee. SUBJECTIVE: MEDICATIONS: Current Outpatient Medications Medication Instructions amLODIPine (NORVASC) 5 mg, Oral atorvastatin (LIPITOR) 80 mg, Oral, Daily Blood Glucose Monitoring Suppl (ONE TOUCH ULTRA 2) w/Device kit USE TO TEST SUGAR TWICE DAILY Lancets (OneTouch Delica Plus [id number]) misc USE TO TEST SUGAR TWICE A DAY latanoprost (Xalatan) 0.005 % ophthalmic solution 1 drop, Both Eyes, Nightly losartan (Cozaar) 100 MG tablet metFORMIN (GLUCOPHAGE) 500 mg, Oral, 2 times daily with meals OneTouch Ultra test strip USE TO TEST BLOOD SUGAR TWICE A DAY PARoxetine (PAXIL) 10 mg, Oral, Every morning Rybelsus 14 mg, Oral, Daily Taltz 80 mg, Subcutaneous, Every 28 days ALLERGIES: No Known Allergies SURGICAL HISTORY: Past Surgical History: Procedure Laterality Date ANTERIOR CRUCIATE LIGAMENT REPAIR CARDIAC CATHETERIZATION 2020 LAD stent placed CATARACT EXTRACTION, BILATERAL CORONARY ANGIOPLASTY WITH STENT PLACEMENT 12/26/2019 Stent. Widowmaker. FEMUR SURGERY cyst removal HAND SURGERY Right 2009 pins, rods, screws HIP SURGERY Left childhood KIDNEY STONE SURGERY KIDNEY SURGERY Right 04/27/2023 lithoplasty KNEE ARTHROPLASTY Right 02/07/2023 DAP KNEE ARTHROSCOPY W/ DEBRIDEMENT Bilateral KNEE CARTILAGE SURGERY Bilateral meniscus , s LASER OF PROSTATE W/ GREEN LIGHT PVP 07/12/2018 Laser of Prostate,TUR LITHOTRIPSY MENISCECTOMY RADIOFREQUENCY ABLATION 09/22/2017 SI joint ROTATOR CUFF REPAIR Right 2009 SKIN CANCER EXCISION 01/03/2019 Surgery right ear,Melanoma TONSILLECTOMY 1999 TONSILLECTOMY 1999 childhood, TOTAL KNEE ARTHROPLASTY Right FAMILY HISTORY: Family History Problem Relation Name Age of Onset Diabetes Mother Cata Other (blood cancer) Mother Cata Cancer Mother Cata Other (lost an eye, not sure why) Father Neal Diabetes Father Neal Diabetes Sister Denisse Scoliosis Sister Denisse Diabetes Sister Johanne Diabetes Sibling SOCIAL HISTORY: Social History Tobacco Use Smoking status: Former Packs/day: 1.00 Years: 10.00 Additional pack years: 0.00 Total pack years: 10.00 Types: Cigarettes Start date: 05/29/1980 Quit date: 05/29/1989 Years since quittin.1 Passive exposure: Past Smokeless tobacco: Never Tobacco comments: Last smoked : > 10 years Vaping Use Vaping Use: Never used Substance Use Topics Alcohol use: Yes Alcohol/week: 9.0 standard drinks of alcohol Types: 9 Standard drinks or equivalent per week Comment: Caffeine intake: 1-2 cups per day Drug use: Never Depression: Not at risk (12/01/2022) PHQ-2 PHQ-2 Score: 0 REVIEW OF SYMPTOMS: The review of systems, history and current medications list are all reviewed today. OBJECTIVE: Visit Vitals Ht 6' Wt 198 lb BMI 26.85 kg/m Smoking Status Former BSA 2.14 m Physical Exam His orthopedic exam here today reveals a little bit of an effusion. Gentle arc of motion is without difficulty. The calf and thigh are supple. The knee is fully stable and his neurocirculatory status is overall grossly intact. Examination of the left knee reveals arc of motion without difficulty. The calf and thigh are supple. No effusion. Examination of the hips reveal internal and external rotation without pain. No trochanteric tenderness. X-rays AP bilateral weight bearing, bilateral sunrise and right lateral knee total of five views with permanent images are saved to the record shows no evidence of fracture, DJD or other osseous abnormality. ASSESSMENT AND PLAN: Assessment/Plan Right knee pain and swelling, status post total knee arthroplasty. The findings are discussed. Again, this looks of low yield for a septic joint situation. We will go ahead and update acute phase reactants with CBC and differential. We did discuss if these are elevated, we would consider arthrocentesis. If this was negative, we would look to alternate etiologies, one that would certainly be at the top of that list would be a complex regional pain syndrome. If his serology does come back negative, we did recommend a referral to neurology for further consultation and work up possibly for that possibility. He does voice understanding of this. Further recommendations will follow. We will await the testing. He is given a requisition for that. All of his questions are otherwise answered this day. He is discharged in stable condition. The patient was seen and examined. From the time of check in, nurse triage, vital signs, x-ray, x-ray interpretation, review of systems, comprehensive history and physical exam as well as setting up treatment plan and further management took 35 minutes. documented in this encounter [facility] 06-12-2023 Hospital Discharge instructions Patient Education 06/12/2023 09:46:41 Kidney Stones, Iyqk-uw-Bnly Kidney Stones Kidney stones are rock-like masses [...] Follow these instructions at home: Medicines Take kdls-fwy-ftbywgw and prescription medicines only as told by [...] provider. Document Revised: 01/17/2022 Document Reviewed: 01/17/2022 [facility] [employer] Patient Education 2022 [employer]. Follow Up Care 05/08/2023 12:52:11 With:PRISCA ACOSTA, Sean Stovall, URL Address: [facility] [address] , [place] [phone] When: Unknown Comments:KIMBERLEY in 6 mos [facility] 05-08-2023 Hospital Discharge instructions Patient Education 05/08/2023 12:13:08 Kidney Stones, Rcyj-cx-Qiay Kidney Stones Kidney stones are rock-like masses [...] Follow these instructions at home: Medicines Take pvbi-vek-cjhnbnr and prescription medicines only as told by [...] provider. Document Revised: 01/17/2022 Document Reviewed: 01/17/2022 [facility] [employer] Patient Education 2022 [employer]. Follow Up Care 05/01/2023 10:55:44 With:PRISCA ACOSTA, Sean Stovall, URL Address: [facility] [address] , [place] [address]- [phone] When:Within 1 Month(s) [facility] Tomi 05-02-2023 Note Admission and Discha rge [...] lithotripsy performed by Dr. Prisca ahmadi at [facility] 04/28. Pt was admitted to the [...] 61.6 % Lymph Auto - 26.8 % [place] Auto - 8.9 % Eos Auto - 2.3 % Basophil Auto - 0.4 % Neutro Absolute - 3.1 E9/L Lymph Absolute - 1.3 E9/L [place] Absolute - 0.4 E9/L Eos Absolute - [...] - 280 mg/dL POC Device SN - [id number] POC User ID - [id number] POC Username - JOHANA SPAIN CBC w/ Auto Diff (04/30/2023) WBC - 5.0 E9/L RBC - 3.3 E12/L Hgb - 9.4 gm/dL Hct - 27.2 % MCV - 82.5 fL MCH - 28.5 pg MCHC - 34.5 gm/dL RDW - 13.7 % Platelet - 156.0 E9/L MPV - 8.1 fL Crossmatch (04/29/2023) Computer XM I (more content not included)... [facility] Comment on above: Result Comment: Elec [...] that it is safe. General instructions Take opvt-ops-kuaupjr and prescription medicines only as told by [...] provider. Document Revised: 07/02/2021 Document Reviewed: 07/02/2021 [facility] [employer] Patient Education 2022 [employer]. Follow Up Care 04/28/2023 20:38:22 With:Sean COPE Address: [facility] [address] , [place] [address]- Business (1) When:05/08/2023 11:00:00 With:ANTONIO KITCHEN Address: [address] [place] [phone] When: Unknown [facility] 04-30-2023 Evaluation + Plan note Extrac [...] he will need to be transferred to [facility] for interventional radiology assistance. 2. Right nephrolithiasis. 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 HTN (hypertension) (I10: Essential (primary) hypertension) Holding Losartan due to LUIS MIGUEL. 9. Kidney stones (N20.0: Calculus of kidney) s/p lithotripsy by Dr Cope on 04/27 at [facility] 10. Type 2 diabetes mellitus (E11.9: [...] Date:05/08/2023 11:00:00 AM Scheduled Provider:Sean COPE MD Location:[facility] Appointment Type:URO Office Visit Diagnostic Tests Pending * UA With Cult Reflex 04/28/23 [facility]12-02-2023 NoteBasic Information Admit Date/Time:04/28/2023 23:03 Chief [...] He is s/plithotripsy by Dr Cope at [facility] yesterday. Apparently had a lot of [...] 20:55:00) Lymph Auto: 22.8 % (04/28/23 20:55:00) [place] Auto: 8.2 % (04/28/23 20:55:00) Eos Auto: 0.6 % (04/28/23 20:55:00) Basophil Auto: 0.4 % (04/28/23 20:55:00) Neutro Absolute: 4.7 E9/L (04/28/23 20:55:00) Lymph Absolute: 1.6 E9/L (04/28/23 20:55:00) [place] Absolute: 0.6 E9/L (04/28/23 20:55:00) Eos Absolute: [...] 26 mmol/L (04/28/23 20:55:00) AGAP: 13 mEq/L (04/28/23:55:00) Calcium Lvl: 9 mg/dL (04/28/23 20:55:00) Troponin: 18.2 pg/mL (04/28/23 20:55:00) Glucose Cap: 278 mg/dL High (04/28/23 23:29:00) POC Device SN: [id number] (04/28/23 23:29:00) POC User ID: [id number] (04/28/23 23:29:00) POC Username: WILLIAM RICHTER (04/28/23 23:29:00) Assessment/Plan 1. Chest pain (R07.9: Chest pain, unspecified) Likely due to effects of below hematoma in conjunction with hypoperfusion from anemia with hx CAD Initial troponin negative Cycle troponins x4 2. Perinephric hematoma (S37.019A: Minor contusion of unspecified kidney, initial encounter) Complication for recent lithotripsy. Supportive care. Treat (more content not included)...[facility] Comment on above:Result Comment: Electronically Signed By: Paco ACOSTA, Danica\.ravin\Date and Time Signed: 04/29/23 00:36 [id number] Hospital Discharge instructions Patient Education 03/27/2023 09:38:53 Kidney Stones, Jhyg-lh-Cwpa Kidney Stones Kidney stones are rock-like masses [...] Follow these instructions at home: Medicines Take tzxw-wte-yssylgr and prescription medicines only as told by [...] provider. Document Revised: 01/17/2022 Document Reviewed: 01/17/2022 [facility] [employer] Patient Education 2022 [employer]. Follow Up Care 01/06/2023 10:09:26 With:PRISCA ACOSTA, Sean Stovall, URL Address: [facility] [address] , [place] [address]- [phone] When: Unknown Comments:sched laser litho [facility] 09-12-2023 Evaluation + Plan noteExtracted from: Title:ANES Post General/Spinal Author:Deion Rodriguez Date:9/12/23 Plan Transfer/Discharge: Patient exhibiting no signs of N/V. Hydration status is adequate. Extracted from: Title:Deo Basic PRE Author:Curly Desouza DO Date:02/07/23 Plan [place] [employer]esthesi[employer] (ASA) physical status classification: Class III. Anesthetic Preoperative Plan: Anesthesia General, and Monitored anethesia care. Regional Spinal, and Right Adductor Canal Block. Future Appointments Appointment Date:03/27/2023 09:00:00 AM Scheduled Provider:Sean COPE MD Location:[facility] Appointment Type:URO New Patient [facility]09-12-2023 Hospital Discharge instructions Patient Education 02/07/2023 [...] as possible. If the spirometer includes a onsite health coach indicator, use this to guide [...] provider. Document Revised: 08/03/2020 Document Reviewed: 08/03/2020 [facility] [employer] Patient Education 2022 [employer]. 02/07/2023 11:45:33 Knee Cryocuff Patient Instructions - FT (CUSTOM) 02/07/2023 06:54:39 [place] - Total Knee Arthroplasty. Revised 08/09/22. (Custom) [place] [facility] DISCHARGE INSTRUCTIONS TOTAL KNEE [...] will continue at home, possible with the environmental services assistant of Home Health Physical Therapy or [...] weeks postop. Yann Atwood, DO [facility] [address] [place], [place] [id number] Reviewed: 09-03 Revised 06/09 Follow Up Care 01/04/2023 15:37:47 With:Yann Atwood Address: [address] [place] [address] Business (1) When:03/08/2023 10:30:00 Comments:Appointment has already been scheduledCall for any problems. [facility]09-08-2023 Note [id number]:127[facility] 01-10-2023 NoteEchocardiology Procedure Exam Date/Time Accession # Ordering Dr. Rivera Transthoracic 01/09/2023 09:04 EDT [id number] Jose De Jesus ACOSTA, Matthew Gar CPT code 89100 81014 Reason for Exam (Echo Transthoracic Complete) I25.10;CAD Coronary artery disease Report Version: 1 Study ID: [id number] Adult Echocardiogram Report Name: JANICE SMYTH Study Date: 01/09/2023, 8: 12 AM Patient Location: [facility] : 1965 (MM/DD/YYYY) Gender: Male Age: 57 Years Height: 185.42 cm BP: 162 / 93 mmHg Weight: 98.431 kg HR: 62 bpm BSA: 2.23 m? Ordering Physician: Matthew Dela Cruz Referring Physician: Matthew Dela Cruz Performed By: Kerri Paniagua [facility] Reason For Study: CAD Coronary artery disease History: CAD, [place], Stent x1, HTN, DM Interpretation Summary Ejection [...] by: Matthew Dela Cruz MD Transcribed by: [facility] Technologist: Sheri [facility] Plan note No data available for this section [facility] Future Appointments Appointment Date:01/16/2023 07:30:00 AM Scheduled Provider: Location:[facility] Appointment Type:Surgical PAT FT Appointment Date:01/16/2023 08:30:00 AM Scheduled Provider: [facility] Type:CT Lower Extremity (FT) Appointment Date:02/07/2023 09:00:00 AM Scheduled Provider: Location:[facility] Appointment Type:Surgery FT Appointment Date:02/10/2023 09:30:00 AM Scheduled Provider:Estephania VILLANUEVA CNP [facility] Type:Cardiology Follow Up (FT) Appointment Date:03/27/2023 09:00:00 AM Scheduled Provider:Sean COPE MD Location:[facility] Tomi Appointment Type:URO New Patient Future Scheduled Tests Radiology* CT Lower Extremity w/o Contrast Right 01/16/23 [facility] Future Appointments Appointment Date:01/16/2023 07:30:00 AM Scheduled Provider: Location:[facility] Appointment Type:Surgical PAT FT Appointment Date:01/16/2023 08:30:00 AM Scheduled Provider: Location[facility] Appointment Type:CT Lower Extremity (FT) Appointment Date:02/07/2023 09:00:00 AM Scheduled Provider: Location:[facility] Appointment Type:Surgery FT Appointment Date:03/27/2023 09:00:00 AM Scheduled Provider:Sean COPE MD Location:[facility] Appointment Type:URO New Patient Future Scheduled Tests Radiology* CT Lower Extremity w/o Contrast Right 01/16/23 [facility] Future Appointments Appointment Date:02/07/2023 09:00:00 AM Scheduled Provider: Location:[facility] Appointment Type:Surgery FT Appointment Date:03/27/2023 09:00:00 AM Scheduled Provider:Sean COPE MD Location:[facility] Appointment Type:URO [facility] Future Appointments Appointment Date:03/27/2023 09:00:00 AM Scheduled Provider:Sean COPE MD Location:[facility] Appointment Type:URO [facility] Future Appointments Appointment Date:06/12/2023 09:15:00 AM Scheduled Provider:Sean COPE MD Location:[facility] Appointment Type:URO Office Visit Diagnostic Tests Pending * CBC w/ Auto Diff 05/08/23 [facility] evaluation + Plan note Future Appointments Appointment Date:12/15/2023 08:45:00 AM Scheduled Provider:Sean COPE MD Location:[facility] Appointment Type:URO Office Visit [facility] evaluation note* Diagnosis Acute pain of right knee- Primary Radiculopathy, lumbar region Thoracic or lumbosacral neuritis or radiculitis, unspecified Presence of right artificial knee joint [facility] Diagnosis Presence of right artificial knee joint- Primary Chronic pain of right knee [facility] Diagnosis Acute pain of right knee- Primary Lumbar radiculopathy Thoracic or lumbosacral neuritis or radiculitis, unspecified Radiculopathy, lumbar region Thoracic or lumbosacral neuritis or radiculitis, unspecified Gait disturbance Abnormality of gait Presence of right artificial knee joint Primary osteoarthritis of right knee [facility] Diagnosis Acute pain of right knee- Primary documented [facility] Dis[facility] No data available for this section [facility] No data available for this section [facility] Summary Purpose Family History No Family [...] and content) DATE CREATED AUTHOR 05/21/2021 [facility] DATE CREATED AUTHOR AUTHOR'S ORGANIZ ATION 08/19/2021 [facility] DATE CREATED AUTHOR AUTHOR'S ORGANIZ ATION 08/11/2023 [facility] DATE CREATED AUTHOR AUTHOR'S ORGANIZ ATION 08/31/2023 [facility] DATE CREATED AUTHOR AUTHOR'S ORGANIZ ATION 11/23/2023 [facility] DATE CREATED AUTHOR AUTHOR'S ORGANIZ ATION 11/30/2023 [facility] DATE CREATED AUTHOR AUTHOR'S ORGANIZ ATION 12/20/2023 [facility] Care Team (unrecognized sect ion and content) 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 Start Date End Date Antonio Kitchen DO [address] [place] [address] PCP - [place] [employer] 08/27/20 Antonio Kitchen DO [address] [place] [address] PCP - General Internal Medicine 12/01/22 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 Start Date End Date Antonio Kitchen DO [address] [place] [address] PCP - [place] [employer] 08/27/20 Antonio Kitchen DO [address] [place] [address] PCP - General Internal Medicine 12/01/22 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 Start Date End Date Antonio Kitchen DO [address] [place] [address] PCP - [place] [employer] 08/27/20 Antonio Kitchen DO [address] [place] [address] PCP - General Internal Medicine 12/01/22 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 Start Date End Date Antonio Kitchen DO [address] [place] [address] PCP - [place] [employer] 08/27/20 Antonio Kitchen DO [address] [place] [address] PCP - General Internal Medicine 12/01/22 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 Start Date End Date Antonio Kitchen DO [address] [place] [address] PCP - [place] [employer] 08/27/20 Antonio Kitchen DO [address] [place] [address] PCP - General Internal Medicine 12/01/22 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 Start Date End Date Antonio Kitchen DO [address] [place] [address] PCP - [place] [employer] 08/27/20 Antonio Kitchen DO [address] [place] [address] PCP - General Internal Medicine 12/01/22 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 Start Date End Date Antonio Kitchen DO [address] [place] [address] PCP - [place] [employer] 08/27/20 Antonio Kitchen, DO [address] [place] [address] PCP - General Internal Medicine 12/01/22 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 Start Date End Date Antonio Kitchen DO [address] [place] [address] PCP - [place] [employer] 08/27/20 Antonio Kitchen DO [address] [place] [address] PCP - General Internal Medicine 12/01/22 Reason for Visit (unrecogniz ed section and content) Specialty Diagnoses / Procedures Referred By Contac t Referred To Contact Physical Therapy Diagnoses Presence of right artificial knee joint Radiculopathy, lumbar region Procedures NM THERAPEUTIC PX 1/> AREAS EACH 15 MIN EXERCISES Yann Atwood, DO [address] [place] [address] Deion Hamlin, PT [address] [place] [address] Referral ID Status Reason Start Date Expiration Date V isits Requested Visits Authorized [id number] Authorized 05/30/2023 11/22/2023 30 30 Reason Comments Pain FOR RECORDS PERTAINING TO PATIENTS WHO ARE [...] BE BASED ON THE PRIMARY CLINICAL RECORDS. [facility]. provides no warranty or guarantee of the accuracy or completeness of information in this document.
[2023-12-26 09:39] LABS: Glucometer 187 mg/dL (74-106)
[2023-12-26] MEDS: LACTATED RINGER'S SOLUTION 1,000 ML 50 ML IV (09:56)
--- NOTE | 2023-12-26 09:57 | PC.NURSE ---
Reported elevated BP to LORELEI Lynch. Patient reports he did take his BP meds.
--- NOTE | 2023-12-26 10:49 | W.PM.PROCNOT ---
Date of procedure: 12/26/23 Pre-op diagnosis: screening colonoscopy Post-op diagnosis: same as pre-op Procedure: Previous colonoscopy: 2008 procedure: screening colonoscopy The patient was given IV conscious sedation.? The patient's SPO2 remained above 90% throughout the procedure. The colonoscope was inserted per rectum and advanced under direct vision to the cecum without difficulty.? The prep was good.? Findings: Terminal ileum os: normal Cecum/Ascending colon: normal Transverse colon: normal Descending/Sigmoid colon: normal Rectum/Anus: examined in normal and retroflexed positions and was normal Withdrawal Time was (minutes): 8 The colon was decompressed and the scope was removed.? The patient tolerated the procedure well. Recommendations/Plan: 1.? Lifestyle and dietary modifications as discussed 2.? F/U in 10 years 3.? Discussed with the family Anesthesia: MAC Surgeon: Charbel Rachel Estimated blood loss (mL): 0 Pathology: none sent Condition: stable Disposition: PACU
[2023-12-26 11:11] VITALS: BP 132/74; PULSE 61; TEMP 36.2; O2SAT 98
[2023-12-26 11:26] VITALS: BP 147/98; PULSE 70; O2SAT 97
[2023-12-26 11:41] VITALS: BP 177/106; PULSE 63; O2SAT 98
--- NOTE | 2023-12-26 11:43 | PC.NURSE ---
bp has been elevated and back down through out the case . anesthesia is aware
== END 2023-12-26 11:41 | disposition home or self-care (01) ==
PROVIDERS: PCP Internal Medicine; Visit Provider Surgery
PROC: (CPT 00811; principal; 2023-12-26 10:25)
DX: Z12.11 Encounter for screening for malignant neoplasm of colon (principal); E78.5 Hyperlipidemia, unspecified; I10 Essential (primary) hypertension; I25.10 Atherosclerotic heart disease of native coronary artery without angina pectoris; Z95.5 Presence of coronary angioplasty implant and graft; E11.9 Type 2 diabetes mellitus without complications; Z79.84 Long term (current) use of oral hypoglycemic drugs
CPT/HCPCS: 00811; 45378; 36415; 82948; J2704